=== PATIENT | female | born 1935 | race Caucasian/White ===

== ENCOUNTER 2017-01-27 16:01 | Emergency (ER) | payer MEDICARE ==
[~2017-01-27] VITALS: Ht 152.4 cm; Wt 101.8 kg
[~2017-01-27 16:01] MED LIST: /AMLO25TA PO; /FENO14TA PO; ACET325S2 PO; ADV250INH INH; ADVA250A INH; ALBU17IN INH; ALBU83IN INH; ASPI-101 PO; ASPI81TA7 PO; ASPI81TAEC PO; AVAL300T14 PO; AVAP150T PO; AVAP150T31 PO; AZIT250T PO; AZUL500T PO; CALC500C2 PO; CALC500T21 PO; CALC500T49 PO; CALCCHW19 PO; CIPR-249 PO; CYMB60CA3 PO; FERR220E3 PO; FLAG500T PO; FLAX1000 PO; FLON0.05; FLON0.054; FLUT1SPR2; INDE80CA PO; IRBE150T12 PO; LASI20TA PO; LASI40TA PO; LEVO50TA5 PO; LIPI20TA PO; MAGO400T PO; MULTCAP PO; MULTTAB4 PO; OCEA0.65; OCEA0.654; PERC5TAB12 PO; PERCOCET PO; PRED10TA2 PO; PRIM250T8 PO; PRIM25TA PO; ROBISYP5 PO; SPIR25TA2 PO; SULF500T2 PO; SULFPOW OR; SYNT50TA PO; TYLE325T5 PO; TYLE650T30 PO; [UNRECOGNIZED DRUG - CODE] PO; advair INH; calcium OR; inderal OR
[2017-01-27] MEDS ORDERED: ALDA25TA2 PO (16:25)
[2017-01-27] MEDS ORDERED: INCR1INH INH (16:29)
[2017-01-27] MEDS ORDERED: DULE200A INH (16:29)
[2017-01-27] MEDS ORDERED: VITA200016 PO (16:30)
[2017-01-27 17:46] LABS: BASO % 0.1 % (0.0-1.0); EOS # 0.2 K/mm3 (0.0-0.50); EOS % 3.1 % (0.0-3.0); LARGE UNSTAINED CELL # 0.1 K/mm3 (0.0-0.4); LARGE UNSTAINED CELL % 1.8 % (0.0-4.0); LYMPH # 1.3 K/mm3 (1.5-4.5); MEAN CORPUSCULAR HEMOGLOBIN 34.2 pg (27.0-33.0); MEAN CORPUSCULAR HGB CONC 33.5 g/dl (32.0-36.5); MONO # 0.4 K/mm3 (0.0-0.8); MONO % 4.5 % (0.0-5.0); NEUTROPHILS # 5.7 K/mm3 (1.8-7.7); NEUTROPHILS % 73.5 % (36.0-66.0); PLATELET COUNT, AUTOMATED 324 k/mm3 (150-450); RED CELL DISTRIBUTION WIDTH 13.5 % (11.5-14.5); WHITE BLOOD COUNT 7.8 K/mm3 (4.0-10.0)
[2017-01-27 18:03] LABS: ALBUMIN 3.3 GM/DL (3.2-5.2); ALBUMIN/GLOBULIN RATIO 0.83 (1.00-1.93); ALKALINE PHOSPHATASE 84 U/L (45-117); ALT/SGPT 14 U/L (12-78); ANION GAP 7 MEQ/L (8-16); AST/SGOT 20 U/L (15-37); BILIRUBIN,DIRECT < 0.1 MG/DL (0.0-0.2); BILIRUBIN,TOTAL 0.2 MG/DL (0.2-1.0); BLOOD UREA NITROGEN 21 MG/DL (7-18); CALCIUM LEVEL 8.8 MG/DL (8.8-10.2); CARBON DIOXIDE LEVEL 30 MEQ/L (21-32); CHLORIDE LEVEL 102 MEQ/L (98-107); CREATININE FOR GFR 0.82 MG/DL (0.55-1.02); GLOMERULAR FILTRATION RATE > 60.0 (>32); GLUCOSE, FASTING 113 MG/DL (83-110); POTASSIUM SERUM 4.1 MEQ/L (3.5-5.1); SODIUM LEVEL 139 MEQ/L (136-145); TOTAL PROTEIN 7.3 GM/DL (6.4-8.2)
--- NOTE | 2017-01-27 18:23 | REP ---
Clinical: Right lower extremity pain and swelling . Technique: Mccracken scale and color Doppler evaluation using linear high frequency transducer. Findings: Ultrasound examination of the right lower extremity deep venous structures from the common femoral vein to the popliteal vein demonstrates normal compressibility flow and wave patterns in response to respiration and augmentation. There is no evidence for deep venous thrombosis. Impression: No evidence for deep venous thrombosis. Signed by Davi Smith MD 01/27/2017 06:15 P
--- NOTE | 2017-01-27 19:01 | REP ---
Clinical: Pain. Technique: AP, cross table lateral, bilateral oblique views of the right knee. Findings: Early advanced tricompartmental osteoarthritic degenerative changes include subchondral sclerosis, marginal osteophytes, and joint space narrowing. No acute fracture dislocation. No definite effusion. Impression: Early advanced tricompartmental osteoarthritic degenerative changes. Signed by Davi Smith MD 01/27/2017 06:53 P
--- NOTE | 2017-01-27 19:10 | REP ---
Clinical: Shortness of breath. Findings: The lung gardner demonstrate diffuse chronic interstitial changes along with minimal superimposed scattered bibasilar atelectasis. No focal consolidation, pleural effusion, or pneumothorax. A 6 mm noncalcified nodule is identified in the lingula and appears relatively unchanged when compared to 2014. No further definite significant nodule or mass lesion is appreciated. Mediastinum demonstrates by of cardiomegaly along with atherosclerotic changes to the thoracic aorta and coronary arteries. No pericardial effusion. No significant obvious adenopathy. Musculoskeletal structures demonstrate age-related degenerative changes without focal osseous abnormality. Upper abdomen demonstrates normal bilateral adrenal glands. Impression: 1. Suspected mild bibasilar atelectasis. 2. Chronic changes including cardiomegaly and scattered chronic interstitial disease as well as noncalcified nodule in the lingula which remains relatively stable compared to 2014. Signed by Davi Smith MD 01/27/2017 07:02 P
[2017-01-27 19:38] VITALS: BP 124/65
== END 2017-01-27 20:31 | disposition home or self-care (01) ==
LOC: M ED 16:01
DX: M17.11 Unilateral primary osteoarthritis, right knee (principal); I50.9 Heart failure, unspecified; I10 Essential (primary) hypertension; E78.4 Other hyperlipidemia; I25.10 Atherosclerotic heart disease of native coronary artery without angina pectoris; K58.8 Other irritable bowel syndrome; Z87.891 Personal history of nicotine dependence

== ENCOUNTER → 2017-01-30 | Outpatient (REF) | payer MEDICARE ==
[~2017-01-30] MED LIST changes: +ALDA25TA2 PO; +CETI10TA PO; +DULE200A INH; +FLON1SPR; +FURO40TA2 PO; +IBUPOTC PO; +INCR1INH INH; +METH25TA3 PO; +MONT10TA2 PO; +MUCI600T37 PO; +NORCOTAB PO; +PROP40TA PO; +SENN1TAB2 PO; +VITA200016 PO; +VOLT1GEL15 TD
[2017-01-30 11:57] LABS: MEAN CORPUSCULAR HEMOGLOBIN 33.6 pg (27.0-33.0); MEAN CORPUSCULAR VOLUME 101.8 fl (80.0-96.0); RED CELL DISTRIBUTION WIDTH 13.7 % (11.5-14.5); WHITE BLOOD COUNT 6.4 K/mm3 (4.0-10.0)
[2017-01-30 12:32] LABS: ALBUMIN/GLOBULIN RATIO 0.73 (1.00-1.93); ALKALINE PHOSPHATASE 72 U/L (45-117); ALT/SGPT 13 U/L (12-78); ANION GAP 9 MEQ/L (8-16); AST/SGOT 21 U/L (15-37); BILIRUBIN,TOTAL 0.3 MG/DL (0.2-1.0); BLOOD UREA NITROGEN 22 MG/DL (7-18); CALCIUM LEVEL 8.6 MG/DL (8.8-10.2); CARBON DIOXIDE LEVEL 28 MEQ/L (21-32); CHLORIDE LEVEL 105 MEQ/L (98-107); CREATININE FOR GFR 0.93 MG/DL (0.55-1.02); GLOMERULAR FILTRATION RATE > 60.0 (>32); GLUCOSE, FASTING 102 MG/DL (83-110); MAGNESIUM LEVEL 2.1 MG/DL (1.8-2.4); POTASSIUM SERUM 4.6 MEQ/L (3.5-5.1); SODIUM LEVEL 142 MEQ/L (136-145); TOTAL PROTEIN 7.1 GM/DL (6.4-8.2)
== END ==
LOC: M LABDRAW1 09:33
PROVIDERS: ATTEND Internal Medicine
DX: I10 Essential (primary) hypertension (principal); Z85.038 Personal history of other malignant neoplasm of large intestine; E78.00 Pure hypercholesterolemia, unspecified; E03.9 Hypothyroidism, unspecified

== ENCOUNTER 2017-02-08 16:56 | Inpatient (IN) | payer MEDICARE ==
[~2017-02-08] VITALS: Ht 152.4 cm; Wt 109.3 kg
[~2017-02-08 16:56] MED LIST changes: -CETI10TA PO; -FLON1SPR; -FURO40TA2 PO; -IBUPOTC PO; -METH25TA3 PO; -MONT10TA2 PO; -MUCI600T37 PO; -NORCOTAB PO; -PROP40TA PO; -SENN1TAB2 PO; -VOLT1GEL15 TD
[2017-02-08] MEDS ORDERED: PRIM250T8 PO (17:11)
[2017-02-08] MEDS ORDERED: FLON1SPR (17:11)
[2017-02-08] MEDS ORDERED: MUCI600T37 PO (17:12)
[2017-02-08] MEDS ORDERED: methylPREDNISolone INJ 125 MG/2 ML VIAL (J2930) IV ONE (17:30)
[2017-02-08 17:41] LABS: ABG BASE EXCESS 1.8 (-2.0-2.0); ABG HCO3 26.5 MEQ/L (22.0-26.0); ABG PARTIAL PRESSURE CO2 41.8 mmHg (35.0-45.0); ABG PARTIAL PRESSURE O2 85.5 mmHg (75.0-100.0); ABG STANDARD HCO3 26.1 MEQ/L (22.0-26.0); ABG TOTAL CO2 27.8 MEQ/L (23.0-31.0)
[2017-02-08 17:51] LABS: BASO # 0.1 K/mm3 (0.0-0.2); BASO % 0.7 % (0.0-1.0); EOS # 1.8 K/mm3 (0.0-0.50); EOS % 22.4 % (0.0-3.0); LARGE UNSTAINED CELL # 0.2 K/mm3 (0.0-0.4); LARGE UNSTAINED CELL % 2.7 % (0.0-4.0); LYMPH # 0.9 K/mm3 (1.5-4.5); LYMPH % 7.9 % (24.0-44.0); MEAN CORPUSCULAR HEMOGLOBIN 33.1 pg (27.0-33.0); MEAN CORPUSCULAR VOLUME 103.3 fl (80.0-96.0); MONO # 0.5 K/mm3 (0.0-0.8); MONO % 5.7 % (0.0-5.0); NEUTROPHILS % 60.6 % (36.0-66.0); PLATELET COUNT, AUTOMATED 277 k/mm3 (150-450); RED CELL DISTRIBUTION WIDTH 14.3 % (11.5-14.5); WHITE BLOOD COUNT 8.2 K/mm3 (4.0-10.0)
--- NOTE | 2017-02-08 18:19 | REP ---
Clinical: Dyspnea and cough. Comparison: 08/18/2015. Findings: Mediastinum and cardiac silhouette are stable. Cardiomegaly is again appreciated. Lung gardner demonstrate diffuse chronic interstitial changes and superimposed interstitial edema as well as subtle basilar atelectasis cannot be excluded. Impression: Cardiomegaly and chronic changes. Cannot exclude interstitial edema and basilar atelectasis. Signed by Davi Smith MD 02/08/2017 06:10 P
[2017-02-08 19:29] LABS: ALBUMIN 3.1 GM/DL (3.2-5.2); ALBUMIN/GLOBULIN RATIO 0.63 (1.00-1.93); ALKALINE PHOSPHATASE 90 U/L (45-117); ALT/SGPT 12 U/L (12-78); ANION GAP 5 MEQ/L (8-16); AST/SGOT 19 U/L (15-37); BILIRUBIN,DIRECT < 0.1 MG/DL (0.0-0.2); BILIRUBIN,TOTAL 0.3 MG/DL (0.2-1.0); BLOOD UREA NITROGEN 23 MG/DL (7-18); CALCIUM LEVEL 8.7 MG/DL (8.8-10.2); CARBON DIOXIDE LEVEL 32 MEQ/L (21-32); CHLORIDE LEVEL 101 MEQ/L (98-107); GLOMERULAR FILTRATION RATE 56.5 (>32); GLUCOSE, FASTING 108 MG/DL (83-110); POTASSIUM SERUM 4.1 MEQ/L (3.5-5.1); SODIUM LEVEL 138 MEQ/L (136-145)
[2017-02-08] MEDS ORDERED: ALBUTEROL SULFATE 2.5 MG/0.5 ML INH NEB SOLN NEB ONE (19:45)
[2017-02-08] MEDS ORDERED: IBUPROFEN 800 MG TAB PO ONE (20:00)
[2017-02-08] MEDS ORDERED: PROPRANOLOL 20 MG TAB PO ONE (20:00)
[2017-02-08] MEDS ORDERED: PRIMIDONE 250 MG TAB PO ONE (20:00)
[2017-02-08] MEDS ORDERED: PROP40TA PO (21:58)
[2017-02-08] MEDS ORDERED: IBUPOTC PO (21:58)
[2017-02-08] MEDS ORDERED: FURO40TA2 PO (21:58)
[2017-02-08] MEDS ORDERED: IBUPROFEN 600 MG TAB PO ONE (22:45)
[2017-02-09 02:00] VITALS: BP 175/77
[2017-02-09] MEDS: ALBUTEROL SULFATE 2.5 MG/0.5 ML INH NEB SOLN INH SCH ×7 (02:14→23:10)
--- NOTE | 2017-02-09 02:24 | HPEPDOC ---
General Date of Admission 02/08/17 Primary Care Physician: Martin Pearson Attending Physician: KENNY OWUSU DO Chief Complaint The patient is a 81-year-old female admitted with a reason for visit of SOB. History of Present Illness Patient is a 81 year old female with past medical history significant for asthma , HTN, essential tremor, hypothyroidism, glaucoma, rheumatoid arthritis, and GALO presents to the ER with shortness of breath. Patient states for the past three days her SOB has become worse. Normally has SOB prior to this. Is not short of breath at rest but has been for the past 3 days. Nothing happened three days ago. No recent illness or sick contacts. Patient states that she has these decompensations every once in a while. Normally she is comes in for some medication is able to go home. Patient states her normal status that she is able to walk approximately 20 feet before her back starts hurting. She also becomes short of breath. She describes having a cough chronically. However it has "tightened up". Currently she does not have a productive cough but she did before. She reports that this started after seeing investment recovery technician approximate 2 months ago she was put on Mucinex. Was told that it's "something stronger ". Her investment recovery technician is Dr. Lee. After this she started having this titer cough. Patient reports last few days she's had to use her pro-air inhaler more than she ever had. Previously she had rarely ever used it. The last 2 days she uses a total 12 times, last afternoon 6 times and 6 times this morning. She only uses her nebulizer twice a day. She was given a call to see if she can use it more but did not. Mr. having a slight headache these past few days. Usually does not have a headache. Describes it as all comes and goes. It is a mild pain. Bitemporal. Goes away on its own. Nothing makes it better and nothing makes it worse. Patient has reported some constipation. Last bowel movement was this morning. When she has constipation will take some prunes or apple cider and this helps. Denies any blood or black tarry stools. In the emergency room patient received a chest x-ray revealed cardiomegaly, interstitial edema and atelectasis. Did not reveal any infiltrates. Patient was given medication for her essential tremor which includes propranolol and mysoline. Patient was also given Solu-Medrol IV 125 mg and albuterol 1 time nebulizer. This helped patient a lot. However patient is still hypoxic without her oxygen. Patient normally only wears 2 L of oxygen at night. However past few days patient has had to wear her out the day. She takes it off when she ambulates but was wearing it when she sits around. She also had a arterial blood gas revealed pH of 7.420 with a CO2 of 41.8. Patient's BMP was 168. Patient has had a previous echocardiogram in [place]. Was done in the hospital that used to been on his [facility] in [place], [place]. Was told that it was normal. Home Medications Scheduled (Dulera 200-5 Mcg/Act) 1 Aer Aer, 1 AER INH BID, (Reported) (Incruse Ellipta) 62.5 Mcg/Inh Inh, 62.5 MCG INH DAILY, (Reported) (Flonase Allergy Relief) 50 Mcg/Act Spr, 2 SPRAYS NA BID, (Reported) Albuterol Sulfate (Albuterol Sulfate) 2.5 Mg/3 Ml Nebu, 2.5 MG INH BID, ( Reported) Aspirin (Aspirin EC) 81 Mg Tabec, 81 MG PO QHS, (Reported) Atorvastatin Calcium (Lipitor) 20 Mg Tab, 20 MG PO QPM, (Reported) Calcium (Calcium) 500 Mg Tab, 1,000 MG PO BID, (Reported) Furosemide (Furosemide) 40 Mg Tab, 60 MG PO DAILY, (Reported) Guaifenesin (Mucinex) 600 Mg Tab, 600 MG PO BID, (Reported) Ibuprofen (Ibuprofen) 200 Mg Tab, 800 MG PO BID, (Reported) Levothyroxine Sodium (Synthroid) 50 Mcg Tab, 100 MCG PO DAILY, (Reported) Linseed Oil (Flaxseed Oil) 1,000 Mg Cap, 1,000 MG PO BID, (Reported) Primidone (Primidone) 250 Mg Tab, 250 MG PO BID, (Reported) Propranolol HCl (Propranolol HCl) 40 Mg Tab, 40 MG PO BID, (Reported) Spironolactone (Aldactone) 25 Mg Tab, 25 MG PO DAILY, (Reported) Sulfasalazine (Sulfasalazine) 500 Mg Tab, 1,000 MG PO BID, (Reported) Vitamin D (Vitamin D) 2,000 Unit Cap, 2,000 UNIT PO QPM, (Reported) Allergies Coded Allergies: Cephalosporins (Verified Allergy, Intermediate, SEVERE HIVES, 03/12/14) Iodine (Verified Allergy, Intermediate, SEVERE HIVES, 03/12/14) Tetracycline (Verified Allergy, Intermediate, EXTREME HIVES RESULTING IN HOSPITALIZATION, 03/12/14) Morphine (Verified Adverse Reaction, Intermediate, HALLUCINATIONS, ) Past Medical History Medical History Asthma Resting tremor HTN GALO CHF CAD, status post 2 stents Rheumatoid arthritis Dyslipidemia Glaucoma Surgical History Colostomy reversal and colostomy construction Cardiac stent, x2 Hysterectomy Tonsillectomy Review of Symptoms Other systems Gen.: Denies any fevers or chills. Patient uses a walker to get around at home. Head: Positive for headache. Denies any trauma. Eyes: Positive for some blurriness, patient wears glasses. Blurriness has been going on for a few months. Patient is a new glasses. Nose: Denies any rhinorrhea. Ears: Denies any hearing changes. Throat: Denies any painful or difficulty swallowing. Cardiovascular: Denies any chest pain or palpitations. Respiratory: Positive per HPI. Abdomen: Denies any abdominal pain, nausea and vomiting and diarrhea. : Denies any dysuria or frequency. Extremity: Denies any muscle weakness. Positive for swelling in the lower extremity. MSK: Admits to some chronic low back pain. Neuro: Denies any numbness. Psych: Negative for depression and anxiety. Physical Examination General Exam: Positive: Alert, Cooperative, No Acute Distress, Other (patient is on 2 L of oxygen nasal cannula.) Eye Exam: Positive: Conjunctiva & lids normal, EOMI, Negative: Sclera icteric, Ptosis ENT Exam: Positive: Atraumatic Neck Exam: Positive: Supple, Negative: JVD, thyromegaly Chest Exam: Positive: Other (Crackles lower lobes bilaterally. ), Negative: Wheezing Heart Exam: Positive: Rate Normal, Normal S1, Normal S2, Negative: Tachycardic, Murmurs, Rubs Abdomen Exam: Positive: Normal bowel sounds, Soft, Negative: Tenderness, Hepatospenomegaly Extremity Exam: Positive: Edema (2+ edema to knees bilaterally), Negative: Clubbing, Cyanosis Skin Exam: Positive: Nl turgor and temperature, Negative: Rash, Breakdown, Lesion Neuro Exam: Positive: Normal Gait, Normal Speech, Sensation Intact, Other ( muscle strength 5/5 upper extremity, lower extremity 3/5. ), Negative: Normal Tone Psych Exam: Positive: Mental status NL, Mood NL, Oriented x 3 (Orientated to person, place and time. ), Negative: Anxiety Vital Signs Vital Signs Date Time Temp Pulse Resp B/P (MAP) Pulse Ox O2 Delivery O2 Flow Rate FiO2 02/08/17 21:15 170/72 (104) 02/08/17 20:56 78 02/08/17 20:41 91 02/08/17 17:42 Nasal Cannula 2.0 02/08/17 17:33 96.2 02/08/17 17:11 36 Laboratory Data Labs 24H Laboratory Tests 2 02/08/17 17:26: Blood Gas Bicarbonate Standard 26.1H, Arterial Blood pH 7.420, Arterial Blood Partial Pressure CO2 41.8, Arterial Blood Partial Pressure O2 85.5, Arterial Blood Total CO2 27.8, Arterial Blood HCO3 26.5H, Arterial Blood Base Excess 1.8 , Arterial Blood Oxygen Saturation 95.2 02/08/17 17:27: White Blood Count 8.2, Red Blood Count 3.21L, Hemoglobin 10.6L, Hematocrit 33.1L , Mean Corpuscular Volume 103.3H, Mean Corpuscular Hemoglobin 33.1H, Mean Corpuscular Hemoglobin Concent 32.0, Red Cell Distribution Width 14.3, Platelet Count 277, Neutrophils (%) (Auto) 60.6, Lymphocytes (%) (Auto) 7.9L, Monocytes ( %) (Auto) 5.7H, Eosinophils (%) (Auto) 22.4H, Basophils (%) (Auto) 0.7, Neutrophils # (Auto) 5.0, Lymphocytes # (Auto) 0.9L, Monocytes # (Auto) 0.5, Eosinophils # (Auto) 1.8H, Basophils # (Auto) 0.1, Large Unclassified Cells % 2.7, Large Unclassified Cells # 0.2, Anion Gap 5L, Glomerular Filtration Rate 56.5, Lactic Acid Level 1.0, Calcium Level 8.7L, Aspartate Amino Transf (AST/ SGOT) 19, Alanine Aminotransferase (ALT/SGPT) 12, Alkaline Phosphatase 90, Total Bilirubin 0.3, Direct Bilirubin < 0.1, B-Type Natriuretic Peptide 168H, Total Protein 8.0, Albumin 3.1L, Albumin/Globulin Ratio 0.63L CBC/BMP Laboratory Tests 02/08/17 17:27 Red Blood Count 3.21 L, Mean Corpuscular Volume 103.3 H, Mean Corpuscular Hemoglobin 33.1 H, Mean Corpuscular Hemoglobin Concent 32.0, Red Cell Distribution Width 14.3, Neutrophils (%) (Auto) 60.6, Lymphocytes (%) (Auto) 7.9 L, Monocytes (%) (Auto) 5.7 H, Eosinophils (%) (Auto) 22.4 H, Basophils (%) (Auto) 0.7, Neutrophils # (Auto) 5.0, Lymphocytes # (Auto) 0.9 L, Monocytes # ( Auto) 0.5, Eosinophils # (Auto) 1.8 H, Basophils # (Auto) 0.1 Assessment/Plan Acute Respiratory Distress Mostly secondary to asthma exacerbation. Patient states that she does feel better with nebulizers and inhalers. Is currently on 2 L of oxygen nasal cannula which she uses at home at night. No wheezing on exam. Patient states that no one ever hears the wheezing. Thyroxine patient desaturated into the 80s% pulse ox. Continuing patient on albuterol nebulizer every 4 hours. Starting patient on methylprednisolone IV 40 mg every 12. Patient received 1 dose 125 mg IV in the ER. Ordering sputum culture and respiratory panel. Chest x-ray revealed no infiltrate. Asthma Patient has seen investment recovery technician Dr. Lee. Patient is currently on Dulara and Incruse daily. Patient also has rescue inhaler and nebulizer treatments. Patient uses nebulizer treatments twice a day. CHF history Patient is a history of CHF. She had an echo last in [place] and was told was normal. Patient does have a reduction edema 2+ to the knees. States that that is chronic. She also does have some crackles and right lower lobes. Patient takes Lasix 60 mg daily, Aldactone 25 mg daily. BNP on labs today is 168. Monitor patient's I's and O's. Resting tremor Patient has a resting tremor. She takes propranolol 80 mg twice a day and primidone to 250 mg twice a day. Patient states that these medications do help her. Patient states she used to take propanolol 80 mg twice a day but has been decreased to current dose. Holding patient's Propranolol due to asthma exacerbation. HTN Patient takes Lasix 60 mg daily, Aldactone 25 mg daily. Monitor blood pressure. CAD Patient has a history of stent 2. Currently takes aspirin 81 mg daily. Continue home dose. Rheumatoid arthritis Patient is currently on sulfasalazine 500 mg 2 tabs twice a day. Continue home dose. GALO Patient currently does not use CPAP machine. Noncompliant. Patient does wear 2 L of oxygen at night. Hyperlipidemia Patient takes Lipitor 20 mg daily. Continue home dose. Hypothyroidism Patient takes Synthroid 100 mcg daily. Continue home dose. Plan / VTE VTE Prophylaxis Ordered?: Yes (Lovenox 40 mg subcutaneous daily. Compression stockings.) Plan Plan For patient to be admitted for observation to Med/Surg. Patient will be followed by Dr. Siegel on 02/09/17 at 7 AM. Be started on 2gm sodium diet. Patient uses a walker for ambulation. GME ATTESTATION GME ATTESTATION My preceptor for this patient encounter was physically present in the building during the encounter and was fully available. As needed, all aspects of the patient interview, examination, medical decision making process, and medical care plan development were reviewed and approved by the preceptor. Preceptor is aware and concurs with the plan as stated in the body of this note and will attest to such by his/her cosignature. CASSANDRA HERNÁNDEZ DO Feb 08, 2017 23:14
[2017-02-09] MEDS: methylPREDNISolone INJ 40 MG/1 ML VIAL (J2920) IV SCH ×2 (05:33→18:23)
[2017-02-09] MEDS: LEVOTHYROXINE 100MCG TABLET (0.1MG) PO SCH (05:35)
[2017-02-09] MEDS ORDERED: ALBUTEROL SULFATE 2.5 MG/0.5 ML INH NEB SOLN NEB ONE (05:45)
[2017-02-09] MEDS ORDERED: ALBUTEROL SULFATE 2.5 MG/0.5 ML INH NEB SOLN NEB PRN (05:45)
[2017-02-09] MEDS ORDERED: ADVAIR HFA 115/21MCG INHALER INH ONE (05:47)
[2017-02-09 06:00] VITALS: BP 164/73
[2017-02-09 07:23] LABS: BASO # 0.1 K/mm3 (0.0-0.2); BASO % 0.8 % (0.0-1.0); EOS # 1.4 K/mm3 (0.0-0.50); EOS % 18.4 % (0.0-3.0); LARGE UNSTAINED CELL # 0.4 K/mm3 (0.0-0.4); LARGE UNSTAINED CELL % 5.6 % (0.0-4.0); LYMPH # 0.7 K/mm3 (1.5-4.5); LYMPH % 9.3 % (24.0-44.0); MEAN CORPUSCULAR HEMOGLOBIN 34.5 pg (27.0-33.0); MEAN CORPUSCULAR HGB CONC 32.8 g/dl (32.0-36.5); MEAN CORPUSCULAR VOLUME 105.2 fl (80.0-96.0); MONO # 0.5 K/mm3 (0.0-0.8); MONO % 6.9 % (0.0-5.0); NEUTROPHILS # 4.6 K/mm3 (1.8-7.7); PLATELET COUNT, AUTOMATED 271 k/mm3 (150-450); RED CELL DISTRIBUTION WIDTH 14.1 % (11.5-14.5); WHITE BLOOD COUNT 7.8 K/mm3 (4.0-10.0)
--- NOTE | 2017-02-09 07:52 | ECGEPIP ---
Stationary ECG Study [facility] - ED Test Date: 2017-02-08 Pat Name: STEFANO ROLDAN Department: Room: - Gender: F Joint Filler: JT : 1935 Requested By: RHONDA Ferris Order Number: [id number] Reading MD: Vee Moe Measurements Intervals [place] Rate: 70 P: -8 MT: 112 QRS: -10 QRSD: 89 T: 0 QT: 392 QTc: 425 Interpretive Statements SINUS RHYTHM WITH SHORT MT INTERVAL POSSIBLE INFERIOR MYOCARDIAL INFARCTION, PROBABLY OLD WITH POSTERIOR EXTENSION BASELINE ARTIFACT LIMITS INTERPRETATION Electronically Signed On 02-09-2017 7:51:48 EDT by Vee Moe
[2017-02-09] MEDS ORDERED: PROPRANOLOL 20 MG TAB PO SCH (09:00)
[2017-02-09] MEDS ORDERED: SALMETEROL DISKUS 50MCG INHALER (SEREVENT) INH SCH (09:00)
[2017-02-09] MEDS: OYSTER SHELL CALCIUM 500 MG TAB PO SCH ×2 (09:00→20:38)
[2017-02-09] MEDS ORDERED: ADVAIR HFA 115/21MCG INHALER INH SCH ×2 (09:00→21:00)
[2017-02-09] MEDS: guaiFENesin ER 600 MG TAB PO SCH ×3 (09:00→20:37)
[2017-02-09 09:12] LABS: CALCIUM LEVEL 8.6 MG/DL (8.8-10.2); CREATININE FOR GFR 0.97 MG/DL (0.55-1.02); GLOMERULAR FILTRATION RATE 58.5 (>32); POTASSIUM SERUM 4.1 MEQ/L (3.5-5.1)
[2017-02-09] MEDS: FLUTICASONE PROP 0.05% NASAL SPRAY 16 GM (FLONASE) SCH ×2 (10:24→20:41)
[2017-02-09] MEDS: sulfaSALAzine 500 MG TABEC PO SCH ×2 (10:25→20:37)
[2017-02-09] MEDS: ENOXAPARIN 40 MG/0.4 ML SYRINGE (J1650) SC SCH (10:25)
[2017-02-09] MEDS: PRIMIDONE 250 MG TAB PO SCH ×2 (10:25→20:38)
[2017-02-09] MEDS: SPIRONOLACTONE 25 MG TAB PO SCH (10:25)
[2017-02-09] MEDS: CETIRIZINE (ZyrTEC) 10 MG TAB PO SCH (10:25)
[2017-02-09] MEDS: FUROSEMIDE 20 MG TAB PO SCH (10:26)
--- NOTE | 2017-02-09 10:26 | REP ---
CT of the chest without IV contrast: Comparisons are the chest CT dated 01/27/2017, CT of the abdomen including the lower lung gardner dated 03/16/2014, CT of the abdomen 02/23/[address] of the abdomen on 02/15/2012. There is complete complete collapse of the lateral segment right middle lobe as a change from all prior studies including the most recent prior study of 01/27/2017. This may represent an acute endobronchial obstruction. There is a noncalcified nodule in the anterior segment right lower lobe on image 53. This measured 7 mm of 01/27/2017 and 6 mm and 03/16/2014 and 6 mm 03/05/2012. There is a 9 mm noncalcified lung nodule inferiorly in the lingula. This measured 9 mm on 01/27/2017, 8 ml on 02/23/2014. Was not included in the scanning volumes on 03/16/2014 over 03/05/2012. There is mild dependent atelectasis in the lung bases. The remainder of the lung gardner are clear. There are multiple mediastinal nodes. These have increased in number from 01/27/2017. A few are borderline enlarged. There is no axillary lymph node enlargement. In the absence of IV contrast the study is insensitive for hilar lymph node enlargement. The unenhanced thoracic aorta is unremarkable. Cardiac size is normal. There is a calculus in the gallbladder with rim calcification. The visualized hepatic parenchyma, pancreas and spleen are unremarkable. There is no adrenal mass. Impression: Complete collapse of the lateral segment of the right middle lobe as a change from 01/27/1927, possibly indicating endobronchial obstruction. Lung nodules as described. Increasing number of mediastinal nodes, some of which are borderline enlarged. Gallbladder calculus. Signed by Evgeny Russ MD 02/09/2017 10:18 A
[2017-02-09] MEDS: PROPRANOLOL 20 MG TAB PO SCH ×2 (12:53→21:00)
[2017-02-09] MEDS: IBUPROFEN 800 MG TAB PO PRN (12:53)
[2017-02-09 14:00] VITALS: BP 156/75
--- NOTE | 2017-02-09 14:03 | IPN ---
DATE: 02/09/2017 Ms. Ball is frustrated with her care last night. She has made some specific care requests that were not always complied with to her level of satisfaction. The good news is that this morning she is perhaps breathing a little easier. She has no chest pain, although she is still somewhat short of breath. She is not producing sputum but believes she could. PHYSICAL EXAMINATION: VITAL SIGNS: Temperature 96.8, pulse 74, respiratory rate 16, blood pressure 164/73, 96% on 2 liters. Input and output notable for a net fluid balance. Body Mass Index (BMI) is 47.8. She is awake, appropriately interactive, somewhat anxious and tearful. Mucous membranes are moist. Neck is thick. Breathing is symmetrical. I:E ratio is 1:5. Coarse upper airway sounds throughout. Occasional polyphonic wheeze. Heart is distant sounding. Normal S1, S2. ABDOMEN: Soft, doughy, nontender. EXTREMITIES: There is lower extremity edema. White cell count is 7.8, hemoglobin 10.5, platelets of 271. BUN 20, creatinine 0.97. Chest CT done this morning shows complete collapse in the lateral segment of the right middle lobe that has changed from previous tests. ASSESSMENT: This is a 89-year-old who presented with respiratory distress, eosinophilia. PLAN: 1. Respiratory. The patient has a history of asthma and follows with Dr. Lee. I have consulted Dr. Degroot for assistance in her care. Based on the findings of her CT scan, we will see what further workup or treatment is warranted. Continue with steroids and nebulizers at this point. 2. The patient has a history of congestive heart failure (CHF) and may benefit from diuresis. 3. The patient has resting tremor. She takes propranolol twice a day, which she is unwilling to give up at this point. Based on her improvement in her respiratory status, I have reordered it reluctantly. 4. The patient has hypertension. 5. The patient has coronary artery disease. 6. The patient has rheumatoid arthritis, which could complicate her lung findings and is another good reason for consultation. 7. The patient has obstructive sleep apnea and noncompliant with CPAP. Does wear oxygen at night. 8. The patient has hypothyroidism. 9. Morbid obesity MTDD
--- NOTE | 2017-02-09 15:40 | REP ---
Clinical: Lower extremity swelling . Technique: Mccracken scale and color Doppler evaluation using linear high frequency transducer. Findings: Ultrasound examination of the right and left lower extremity deep venous structures from the common femoral vein to the popliteal vein demonstrates normal compressibility flow and wave patterns in response to respiration and augmentation. There is no evidence for deep venous thrombosis. Diffuse subcutaneous edema noted. Impression: No evidence for deep venous thrombosis bilateral lower extremities. Subcutaneous edema. Signed by Davi Smith MD 02/09/2017 03:32 P
--- NOTE | 2017-02-09 19:00 | CR ---
DATE OF CONSULTATION: 02/09/2017 REASON FOR CONSULTATION: Shortness of breath, eosinophilia, concern for uncontrolled asthma. CONSULT IN PROVIDER: Dr. Phillip Siegel. HISTORY OF PRESENT ILLNESS: Ms. Ball is an 81-year-old female who is known to Dr. Lee's service for allergic asthma. She presented yesterday to the hospital, her second visit to the hospital for shortness of breath. She had just been recently discharged from a hospital in [place]. She states that during that hospitalization she underwent bronchoscopy and was well for about a week and then had her symptoms return. She has been short of breath, tight, wheezing. She states after starting Mucinex she actually got worse. She has significant lower extremity edema, and she states she simply cannot live this way. She cannot recall any inciting events. She does feel as if she has increased nasal congestion. No increased sinus congestion. No fever, chills. Her cough is mostly nonproductive. No hemoptysis. She denies any chest pain. No significant orthopnea. She does have chest tightness. She states she has seen two cardiologists and both cardiologists told her her heart was fine. However, she is on Aldactone. She also states that she is hypothyroid; however, states her primary care physician has taken close watch of this. She states she was actually able to cough up a little sputum this morning, was able to give a sputum sample. Her biggest complaint is that of shortness of breath with minimal movement. PAST MEDICAL HISTORY: 1. Allergic asthma. 2. Hypertension. 3. Essential tremor. 4. Hypothyroidism. 5. Glaucoma. 6. History of rheumatoid arthritis. 7. Obstructive sleep apnea. 8. Suspected diastolic dysfunction. 9. History of coronary artery disease status post two stents. 10. Dyslipidemia. 11. Colostomy with reversal. 12. Hysterectomy. 13. Tonsillectomy. REVIEW OF SYSTEMS: General: The patient denies any fever, chills. She has had no weight loss and her appetite is good. HEENT: She has had a headache but at the beginning of her hospitalization; none now. Complains of nasal congestion. No sinus congestion. No change in vision. No difficulty swallowing. Cardiovascular: No chest pain. No orthopnea. No symptoms of paroxysmal nocturnal dyspnea (PND) but does have lower extremity edema. No symptoms of claudication. Pulmonary: No pleurisy. No history of tuberculosis, tuberculosis exposures. Cannot recall any acute inhalational exposures. Abdomen: No nausea, vomiting, diarrhea, blood in stool. No change in bowel habits. Genitourinary (): No burning or pain with urination. No increased urination. Extremities: She denies weakness, but walks with a walker. Neurologic: Has essential tremor. States she has tried multiple medications other than propranolol that did not work as well as propranolol, and she does not want to stop this medication. No unilateral weakness. No history of seizure activity. No history of head trauma. Sleep: Has obstructive sleep apnea, was slightly sedated when I walked in her room, has difficulty staying awake without the use of her C-PAP. Hematologic: No easy bleeding, easy bruising. She has not required blood transfusion. Psychiatric: No anxiety, depression. CURRENT MEDICATIONS: Ecotrin, Lipitor, Lasix, Mucinex Synthroid, primidone, Aldactone, Proventil, sulfasalazine, Solu-Medrol, Os-David, vitamin D, Flonase, Lovenox, Zyrtec, Prevnar and propranolol. FAMILY HISTORY: She denies any family history of lung disease. She states her son has allergies. SOCIAL HISTORY: She quit smoking 25 years ago, used to smoke a pack and half a day. Started at age 14. She has no pets at home. She lives alone in [place]. She is a retired nurse. PHYSICAL EXAMINATION: VITAL SIGNS: Temperature is 96.8, pulse is 94, respiratory rate of 16, blood pressure is 164/73. Oxygen saturation is 96% on two liters. GENERAL: The patient is initially sleeping in bed, arouses with conversation. HEENT: Sclerae clear and anicteric. Pupils equal round react to light. Mucous membranes are moist without lesions. Tongue is midline. Good dentition. Oropharynx without erythema or exudate. Mallampati II. NECK: Supple. No tracheal deviation. I do not auscultate any stridor. There are no carotid bruits. Jugular venous pulse (JVP) is difficult to assess due to body habitus. LYMPHATIC: No cervical, supraclavicular or axillary adenopathy. CARDIAC: Distant S1, S2 without audible murmur, rub or gallop. Point of maximum impulse (PMI) is difficult to palpate. She has significant pitting edema up to her midthigh. PULMONARY: Decreased breath sounds throughout, prolonged expiratory phase, very tight with poor air entry and there is expiratory wheeze posteriorly, more prominent at the left base. ABDOMEN: Obese, soft, nontender, nondistended. No hepatosplenomegaly. No masses or hernia. EXTREMITIES: Significant pitting edema up to level of her midthigh. No cyanosis or clubbing. MUSCULOSKELETAL: Fair muscle tone for stated age. No evidence of unilateral weakness. No joint effusions. LABORATORY DATA: Laboratory evaluation shows a white blood cell count of 8.2 with 22% neutrophilia, hemoglobin of 10.6, hematocrit of 33.1, with a platelet count of 277. Arterial blood gas shows a pH of 7.42, pCO2 of 41.8, pAO2 of 86. Sodium is 141, potassium 4.1, chloride 104, bicarb of 28, BUN of 20, creatinine 0.97 and glucose of 84. BNP is elevated at 168. Albumin is 3.1. IMAGING: Chest CT was reviewed from 02/06/2017 and 02/09/2017. 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 There is also bronchiectasis. There is evidence of some emphysema throughout the lungs. There is a round pulmonary nodule which has been present since 2014, but more prominent. It does have a benign appearance. There is no significant infiltrate otherwise. IMPRESSION: 1. Dyspnea with history of asthma. There are multiple potential causes of her dyspnea. I believe she may be having exacerbation; therefore, Solu-Medrol is very reasonable. She is on propranolol. I would discontinue this medication and find an alternative therapy for her essential tremor. Often patients that are this eosinophilic with asthma do not do well with nonsteroidals or aspirin. Would look for alternative therapies for her sulfasalazine, Ecotrin and Advil. I will rule out the possibility of allergic bronchopulmonary aspergillosis (ABPA) given her evidence of bronchiectasis on CT exam of the lungs. 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 Apparently had a bronchoscopy in [place] and will obtain those records. I did offer her bronchoscopy if her symptoms do not get better. At this point in time she states she does not want this as she believes it will not help her. I have ordered Mucomyst to help with breakdown of secretions for better mucociliary clearance. I ordered chest physical therapy (PT). Efforts towards mucociliary clearance will be important. 2. Pulmonary nodule, likely benign, will require radiologic surveillance. 3. Lower extremity edema likely from diastolic dysfunction. Agree with efforts towards diuresis. If she proves to be sulfa sensitive, ethacrynic acid may be used instead of Lasix. Thank you for this consultation on this difficult clinical picture. If you have any further questions please feel free to call. EBONI
[2017-02-09] MEDS: ACETYLCYSTEINE 20% 4 ML VIAL (200MG/ML) INH SCH (19:43)
[2017-02-09] MEDS ORDERED: FUROSEMIDE 40 MG/4 ML VIAL (J1940) IV ONE (20:00)
[2017-02-09] MEDS: ASPIRIN 81 MG ENTERIC TAB PO SCH (20:36)
[2017-02-09] MEDS: ATORVASTATIN 20 MG TAB PO SCH (20:36)
[2017-02-09] MEDS: VITAMIN D 1,000 INTERNATIONAL UNITS TABLET PO SCH (20:38)
[2017-02-09] MEDS: DULERA INH SCH (20:38)
[2017-02-09 22:00] VITALS: BP 131/71
[2017-02-10] MEDS: ALBUTEROL SULFATE 2.5 MG/0.5 ML INH NEB SOLN INH SCH ×6 (04:00→23:35)
[2017-02-10] MEDS: methylPREDNISolone INJ 40 MG/1 ML VIAL (J2920) IV SCH ×2 (05:50→18:42)
[2017-02-10] MEDS: LEVOTHYROXINE 100MCG TABLET (0.1MG) PO SCH (05:50)
[2017-02-10] MEDS: IBUPROFEN 800 MG TAB PO PRN ×2 (05:59→19:47)
[2017-02-10 06:00] VITALS: BP 125/68
[2017-02-10 07:22] LABS: CREATININE FOR GFR 0.97 MG/DL (0.55-1.02); GLOMERULAR FILTRATION RATE 58.5 (>32); MAGNESIUM LEVEL 1.8 MG/DL (1.8-2.4); POTASSIUM SERUM 3.7 MEQ/L (3.5-5.1)
[2017-02-10 07:27] LABS: BASO # 0.1 K/mm3 (0.0-0.2); BASO % 0.8 % (0.0-1.0); EOS # 2.7 K/mm3 (0.0-0.50); LARGE UNSTAINED CELL # 0.5 K/mm3 (0.0-0.4); LARGE UNSTAINED CELL % 4.7 % (0.0-4.0); LYMPH # 1.6 K/mm3 (1.5-4.5); LYMPH % 10.4 % (24.0-44.0); MEAN CORPUSCULAR HEMOGLOBIN 32.9 pg (27.0-33.0); MEAN CORPUSCULAR HGB CONC 31.5 g/dl (32.0-36.5); MEAN CORPUSCULAR VOLUME 104.2 fl (80.0-96.0); MONO # 0.6 K/mm3 (0.0-0.8); MONO % 5.5 % (0.0-5.0); NEUTROPHILS # 5.8 K/mm3 (1.8-7.7); NEUTROPHILS % 53.7 % (36.0-66.0); PLATELET COUNT, AUTOMATED 288 k/mm3 (150-450); RED CELL DISTRIBUTION WIDTH 14.4 % (11.5-14.5); WHITE BLOOD COUNT 10.8 K/mm3 (4.0-10.0)
[2017-02-10] MEDS: ACETYLCYSTEINE 20% 4 ML VIAL (200MG/ML) INH SCH ×2 (07:50→19:40)
[2017-02-10] MEDS: DULERA INH SCH ×2 (07:50→19:39)
[2017-02-10] MEDS ORDERED: PREVNAR 13 VACCINE SYRINGE (CPT CODE:90670) IM ONE (09:00)
[2017-02-10] MEDS ORDERED: INFLUENZA VIRUS VACCINE HIGH DOSE 0.5 ML SYRINGE (90662) IM ONE (09:00)
[2017-02-10] MEDS: ENOXAPARIN 40 MG/0.4 ML SYRINGE (J1650) SC SCH (10:06)
[2017-02-10] MEDS: PROPRANOLOL 20 MG TAB PO SCH ×2 (10:06→19:47)
[2017-02-10] MEDS: FUROSEMIDE 20 MG TAB PO SCH (10:06)
[2017-02-10] MEDS: PRIMIDONE 250 MG TAB PO SCH ×2 (10:07→19:46)
[2017-02-10] MEDS: sulfaSALAzine 500 MG TABEC PO SCH ×2 (10:07→19:46)
[2017-02-10] MEDS: CETIRIZINE (ZyrTEC) 10 MG TAB PO SCH (10:07)
[2017-02-10] MEDS: guaiFENesin ER 600 MG TAB PO SCH ×2 (10:08→19:48)
[2017-02-10] MEDS: SPIRONOLACTONE 25 MG TAB PO SCH (10:08)
[2017-02-10] MEDS: OYSTER SHELL CALCIUM 500 MG TAB PO SCH ×2 (10:08→19:46)
[2017-02-10] MEDS: FLUTICASONE PROP 0.05% NASAL SPRAY 16 GM (FLONASE) SCH ×2 (10:08→19:48)
--- NOTE | 2017-02-10 13:06 | IPN ---
DATE OF SERVICE: 02/10/2017 ATTENDING PHYSICIAN: Jerome Degroot DO HISTORY: The patient was seen and examined at bedside this morning. She looks comfortable, in no acute distress. The patient states that she is feeling a little bit better. She is having a productive cough since starting the Mucomyst. The patient states that she has filled about 3 napkins. VITAL SIGNS: Temperature 97.3, pulse of 83, respiratory rate of 18, blood pressure of 125/68 (87), pulse oximetry of 96% with a nasal cannula set at 2 liters. PHYSICAL EXAMINATION: General: The patient looks in no acute distress. Sitting comfortable up in her bed with the nasal cannula. Heent: Sclera clear, mucous membranes moist without lesions, Tongue midline. Heart: Regular rhythm. No rubs. No murmurs. No gallops. No elevated JVP Lungs: Expiratory wheezes can be heard on the right upper lobe and clear to auscultate of the left lobe, an improvement since yesterday. No accessory muscle use. ABd: soft, nt, nd, no hepatosplenomegaly. Normoactive bowel sounds. Extremities: 2+ edema up to the knees bilaterally, an improvement since yesterday, as well. LABORATORIES: Hematology: WBC of 10.8, a hemoglobin of 10.0, hematocrit of 31.7, platelets of 288, lymphocytes of 10.4, monocytes of 5.5, eosinophils of 25.0, neutrophils of 53.7. Chemistry: Sodium of 141, potassium of 3.7, chloride of 101, carbon dioxide 32, BUN of 21, creatinine of 0.97, anion gap of 8, fasting glucose of 86, calcium of 9.0, magnesium of 1.8. Her immunology showed that her IgE levels are 17,000. Serology: Aspergillus antibodies are still pending. No new imaging was done. ASSESSMENT: 1. Dyspnea with a history of asthma. 2. Elevated IgE. 3. Lower extremity edema. PLAN: 1. The patient is to continue Mucinex and chest physiotherapy. Lung sounds are improving. Will continue to monitor the patient daily. 2. For the elevated IgE, will consider the patient for Xolair or Nucala outpatient. 3. Lower extremity edema. The patient got one dose of 40 mg furosemide yesterday. On phyical exam lower extremity edema is improving. Will continue to monitor. My preceptor for this patient encounter was Jerome Degroot DO. The preceptor was physically present in the room during the encounter and was fully available. As needed, all aspects of the patient interview, examination, medical decision making process, and medical care plan development were reviewed and approved by the preceptor. The preceptor is aware and concurs with the plan as stated in the body of this note and will attest to such by her cosignature. I, Jerome Degroot, Agree with the above assessment and plan after having performed my independent evaluation of the patient which included a physical exam, MTDD
[2017-02-10 14:00] VITALS: BP 127/64
--- NOTE | 2017-02-10 17:55 | IPN ---
DATE: 02/10/2017 Ms. Ball is feeling a bit better today. She has been short of breath with movement. No chest pain. She has been producing sputum with the use of the Mucomyst inhaled. Thinks that was quite useful. Temperature 97.3, pulse 83, respiratory rate 18, blood pressure 125/68, 96% on 2 liters. INTAKE AND OUTPUT(I and O): Notable for negative fluid status of -620. No bowel movements. She is awake, appropriately interactive, pleasantly conversant. Breathing is symmetrical, much more rested than last evening. Inspiratory to expiratory (I:E) ratio is 1:4. Coarse upper airway sounds. Occasional polyphonic wheeze. Heart is distant sounding. Normal S1, S2. She is not tachycardic on my exam. Abdomen soft, doughy, nontender. She has lower extremity edema, improved from yesterday. White cell count 10.8, hemoglobin 10.0, platelets 288. BUN 21, creatinine 0.97. Immunoglobulin E (IgE) level is 17,000. Aspergillus antibodies are pending. ASSESSMENT: This is a 89-year-old who presented with respiratory distress and eosinophilia. PLAN: 1. Respiratory. Discussed this case in person with Dr. Degroot. She has bronchiectasis, asthma, pulmonary nodule and right middle lobe syndrome with collapse of the right middle lobe. She has declined bronchoscopy. We are pursuing medical management with some improvement. 2. Patient has congestive heart failure, which is most likely diastolic. She has gotten some extra diuresis. Will consider that again tomorrow. 3. Patient has resting tremor. She takes propranolol. She is somewhat reluctant to give up that medication. 4. Patient has hypertension. 5. Patient has coronary artery disease. 6. Patient has rheumatoid arthritis. 7. Patient has obstructive sleep apnea (GALO). Is not compliant with continuous positive airway pressure (CPAP). Has nocturnal hypoxemia. 8. Morbid obesity MTDD
[2017-02-10] MEDS: ASPIRIN 81 MG ENTERIC TAB PO SCH (19:46)
[2017-02-10] MEDS: ATORVASTATIN 20 MG TAB PO SCH (19:46)
[2017-02-10] MEDS: VITAMIN D 1,000 INTERNATIONAL UNITS TABLET PO SCH (19:47)
[2017-02-10 22:00] VITALS: BP 143/62
[2017-02-11] MEDS: ALBUTEROL SULFATE 2.5 MG/0.5 ML INH NEB SOLN INH SCH ×5 (04:02→20:15)
[2017-02-11 06:00] VITALS: BP 136/74
[2017-02-11] MEDS: LEVOTHYROXINE 100MCG TABLET (0.1MG) PO SCH (06:14)
[2017-02-11] MEDS: methylPREDNISolone INJ 40 MG/1 ML VIAL (J2920) IV SCH ×2 (06:14→18:00)
[2017-02-11] MEDS: IBUPROFEN 800 MG TAB PO PRN ×2 (06:22→18:20)
[2017-02-11 07:01] LABS: BASO # 0.1 K/mm3 (0.0-0.2); BASO % 0.7 % (0.0-1.0); EOS # 2.6 K/mm3 (0.0-0.50); EOS % 24.5 % (0.0-3.0); LARGE UNSTAINED CELL # 0.4 K/mm3 (0.0-0.4); LARGE UNSTAINED CELL % 4.1 % (0.0-4.0); LYMPH # 1.5 K/mm3 (1.5-4.5); LYMPH % 10.2 % (24.0-44.0); MEAN CORPUSCULAR HGB CONC 31.6 g/dl (32.0-36.5); MEAN CORPUSCULAR VOLUME 104.6 fl (80.0-96.0); MONO # 0.6 K/mm3 (0.0-0.8); MONO % 5.4 % (0.0-5.0); NEUTROPHILS # 5.9 K/mm3 (1.8-7.7); NEUTROPHILS % 55.1 % (36.0-66.0); PLATELET COUNT, AUTOMATED 284 k/mm3 (150-450); RED CELL DISTRIBUTION WIDTH 14.6 % (11.5-14.5); WHITE BLOOD COUNT 10.7 K/mm3 (4.0-10.0)
[2017-02-11 07:17] LABS: CALCIUM LEVEL 9.5 MG/DL (8.8-10.2); GLOMERULAR FILTRATION RATE 56.5 (>32); MAGNESIUM LEVEL 2.1 MG/DL (1.8-2.4); POTASSIUM SERUM 3.8 MEQ/L (3.5-5.1)
[2017-02-11] MEDS: DULERA INH SCH ×3 (07:57→22:27)
[2017-02-11] MEDS: INCRUSE ELLIPTA (PATIENT'S OWN MED) INH SCH (07:58)
[2017-02-11] MEDS: ACETYLCYSTEINE 20% 4 ML VIAL (200MG/ML) INH SCH ×2 (08:09→20:15)
[2017-02-11] MEDS: guaiFENesin ER 600 MG TAB PO SCH ×2 (10:53→19:42)
[2017-02-11] MEDS: PROPRANOLOL 20 MG TAB PO SCH ×2 (10:53→19:44)
[2017-02-11] MEDS: sulfaSALAzine 500 MG TABEC PO SCH ×2 (10:54→19:43)
[2017-02-11] MEDS: OYSTER SHELL CALCIUM 500 MG TAB PO SCH ×2 (10:55→19:45)
[2017-02-11] MEDS: FUROSEMIDE 20 MG TAB PO SCH (10:56)
[2017-02-11] MEDS: PRIMIDONE 250 MG TAB PO SCH ×2 (10:57→19:45)
[2017-02-11] MEDS: SPIRONOLACTONE 25 MG TAB PO SCH (10:58)
[2017-02-11] MEDS: CETIRIZINE (ZyrTEC) 10 MG TAB PO SCH (10:58)
[2017-02-11] MEDS: ENOXAPARIN 40 MG/0.4 ML SYRINGE (J1650) SC SCH (10:59)
[2017-02-11] MEDS: FLUTICASONE PROP 0.05% NASAL SPRAY 16 GM (FLONASE) SCH ×2 (11:00→19:50)
[2017-02-11 14:00] VITALS: BP 133/93
--- NOTE | 2017-02-11 17:04 | IPN ---
DATE: 02/11/2017 SUBJECTIVE: Ms. Ball is feeling somewhat sad this morning. She is disappointed that she is sick and in the hospital and is unclear about what her living arrangements might be post her hospital stay and is worried about the way her health is progressing. OBJECTIVE: VITAL SIGNS: Temperature is 97, pulse 86, respiratory rate 18, blood pressure 136/74, 93% on two liters. Intake and output notable for positive fluid balance of 835, one bowel movement yesterday. GENERAL: She is awake, appropriately interactive, at times tearful, but consolable. HEENT: Mucous membranes are moist. NECK: Supple, thick. RESPIRATORY: Breathing symmetrically diminished with an I to E ratio of 1:4. Breath sounds are notable for upper airway component which is also symmetrical. HEART: Distant sounding normal S1, S2. Radial pulses 2+. Capillary refill is less than two seconds. ABDOMEN: Soft, doughy, nontender. LABORATORY DATA: White cell count 10.7, hemoglobin 10.2, and platelets of 284. BUN 24, creatinine one. ASSESSMENT: A 81-year-old who presented with respiratory distress, eosinophilia. PLAN: 1. Respiratory: I discussed this case with Dr. Degroot who is adding Singulair to the patient's care. The patient is also requesting increased Mucomyst and discontinuing vest therapy which I will defer to Dr. Degroot. The patient has declined bronchoscopy during this stay. 2. The patient has congestive heart failure which is most likely diastolic. She may benefit from extra diuresis. 3. The patient has essential tremor which she has had for many years. She is taking propranolol. She is reluctant to stop that medication. We did discuss that again today. 4. The patient has hypertension. 5. The patient has coronary artery disease. 6. The patient has rheumatoid arthritis. 7. The patient has obstructive sleep apnea and is noncompliant with continuous positive airway pressure (CPAP) and uses nocturnal oxygen. 8. Morbid obesity MTDD
[2017-02-11] MEDS: VITAMIN D 1,000 INTERNATIONAL UNITS TABLET PO SCH (19:44)
[2017-02-11] MEDS: ATORVASTATIN 20 MG TAB PO SCH (19:45)
[2017-02-11] MEDS: ASPIRIN 81 MG ENTERIC TAB PO SCH (19:45)
[2017-02-11] MEDS: MONTELUKAST 10 MG TAB PO SCH (19:46)
[2017-02-11 22:00] VITALS: BP 144/62
[2017-02-12] MEDS: ALBUTEROL SULFATE 2.5 MG/0.5 ML INH NEB SOLN INH SCH ×7 (00:03→23:47)
[2017-02-12 06:00] VITALS: BP 144/88
[2017-02-12] MEDS: LEVOTHYROXINE 100MCG TABLET (0.1MG) PO SCH (06:24)
[2017-02-12] MEDS: methylPREDNISolone INJ 40 MG/1 ML VIAL (J2920) IV SCH ×2 (06:24→17:03)
[2017-02-12] MEDS: IBUPROFEN 800 MG TAB PO PRN ×2 (06:30→17:03)
[2017-02-12 07:14] LABS: BASO # 0.1 K/mm3 (0.0-0.2); BASO % 0.5 % (0.0-1.0); EOS # 3.4 K/mm3 (0.0-0.50); EOS % 26.7 % (0.0-3.0); LARGE UNSTAINED CELL # 0.4 K/mm3 (0.0-0.4); LARGE UNSTAINED CELL % 3.2 % (0.0-4.0); LYMPH # 1.8 K/mm3 (1.5-4.5); LYMPH % 10.7 % (24.0-44.0); MEAN CORPUSCULAR HGB CONC 31.8 g/dl (32.0-36.5); MEAN CORPUSCULAR VOLUME 103.9 fl (80.0-96.0); MONO # 0.7 K/mm3 (0.0-0.8); MONO % 5.2 % (0.0-5.0); NEUTROPHILS # 6.9 K/mm3 (1.8-7.7); NEUTROPHILS % 53.7 % (36.0-66.0); PLATELET COUNT, AUTOMATED 303 k/mm3 (150-450); RED CELL DISTRIBUTION WIDTH 14.4 % (11.5-14.5); WHITE BLOOD COUNT 12.8 K/mm3 (4.0-10.0)
[2017-02-12 07:29] LABS: CALCIUM LEVEL 9.3 MG/DL (8.8-10.2); CREATININE FOR GFR 0.97 MG/DL (0.55-1.02); GLOMERULAR FILTRATION RATE 58.5 (>32); MAGNESIUM LEVEL 1.8 MG/DL (1.8-2.4); POTASSIUM SERUM 4.1 MEQ/L (3.5-5.1)
[2017-02-12] MEDS: DULERA INH SCH ×2 (07:50→20:21)
[2017-02-12] MEDS ORDERED: FUROSEMIDE 40 MG/4 ML VIAL (J1940) IV ONE (08:00)
--- NOTE | 2017-02-12 08:00 | IPN ---
DATE: 02/12/2017 Ms Ball is still somewhat short of breath. She is coughing, Mucomyst is helpful. She used the acapella device in line with her nebulizer which apparently has been helpful as well but is quite draining physically. Temperature is 98.5, pulse 66, respiratory rate 18, blood pressure 144/88, 92% on 2 liters. Input and output notable for a positive fluid balance of 1120. No bowel movement noted yesterday. She is awake, appropriately interactive. Her breathing is rested. There is no accessory muscle use. She is speaking in sentences. I/E ratio is 1:4 with decreased aeration throughout with some upper airway noises. Heart is in a regular rate and rhythm. Normal S1, S2. Abdomen soft, doughy, nontender. There is 2+ bilateral lower extremity edema, more on the right than the left. She has been sitting upright with her legs dangling over the bed for a little bit at this point. White cell count 12.8, hemoglobin 12.1, BUN 24, creatinine 0.97. My assessment is as follows: This is a 81-year-old with respiratory distress and eosinophilia found to have right middle lobe syndrome, bronchiectasis. Plan is as follows: 1. Respiratory: The patient is generally improved. Will repeat a chest x-ray today. Continue Mucomyst for mal clearance of secretions. Greatly appreciate Dr. Degroot assistance in the case. The patient continues on Solu-Medrol twice daily. 2. The patient has congestive heart failure which is most likely diastolic. The patient consents to extra diuresis today. 3. The patient has essential tremor, which is more notable on exam today than it has previously been. She was taking propranolol and does not really want to stop that medication. 4. The patient has hypertension. 5. The patient has coronary artery disease. 6. The patient has rheumatoid arthritis. 7. The patient has obstructive sleep apnea, noncompliant with CPAP. 8. Morbid obesity MTDD
[2017-02-12] MEDS: ENOXAPARIN 40 MG/0.4 ML SYRINGE (J1650) SC SCH (08:35)
[2017-02-12 08:36] VITALS: BP 144/88
[2017-02-12] MEDS: CETIRIZINE (ZyrTEC) 10 MG TAB PO SCH (08:36)
[2017-02-12] MEDS: PROPRANOLOL 20 MG TAB PO SCH ×2 (08:36→21:17)
[2017-02-12] MEDS: sulfaSALAzine 500 MG TABEC PO SCH ×2 (08:36→21:16)
[2017-02-12] MEDS: OYSTER SHELL CALCIUM 500 MG TAB PO SCH ×2 (08:36→21:17)
[2017-02-12] MEDS: PRIMIDONE 250 MG TAB PO SCH ×2 (08:37→21:17)
[2017-02-12] MEDS: SPIRONOLACTONE 25 MG TAB PO SCH (08:37)
[2017-02-12] MEDS: guaiFENesin ER 600 MG TAB PO SCH ×3 (08:37→21:18)
[2017-02-12] MEDS: FLUTICASONE PROP 0.05% NASAL SPRAY 16 GM (FLONASE) SCH ×2 (08:37→21:18)
[2017-02-12] MEDS: ACETYLCYSTEINE 20% 4 ML VIAL (200MG/ML) INH SCH ×2 (08:44→20:21)
--- NOTE | 2017-02-12 10:12 | REP ---
PA and lateral chest: Comparison is 02/08/2017. The previous interstitial edema has significantly improved. The costophrenic angles are mildly effaced and this may represent small bilateral pleural effusions. There is focal increased density inferiorly in the right lung and along the fissure on the lateral view suggestive of focal atelectasis. This is unchanged. Cardiac size is borderline enlarged. The jacklyn, mediastinum, bony thorax are unremarkable. Impression: Persisting focal atelectasis inferiorly in the right lung. The previous interstitial infiltrates have resolved. Questionable small bilateral pleural effusions. Signed by Evgeny Russ MD 02/12/2017 10:03 A
[2017-02-12] MEDS: INCRUSE ELLIPTA (PATIENT'S OWN MED) INH SCH (11:11)
[2017-02-12] MEDS: ASPIRIN 81 MG ENTERIC TAB PO SCH (21:17)
[2017-02-12] MEDS: VITAMIN D 1,000 INTERNATIONAL UNITS TABLET PO SCH (21:17)
[2017-02-12] MEDS: ATORVASTATIN 20 MG TAB PO SCH (21:18)
[2017-02-12] MEDS: MONTELUKAST 10 MG TAB PO SCH (21:18)
[2017-02-12 22:00] VITALS: BP 143/66
[2017-02-13] MEDS: ALBUTEROL SULFATE 2.5 MG/0.5 ML INH NEB SOLN INH SCH ×6 (03:45→23:42)
[2017-02-13] MEDS: IBUPROFEN 800 MG TAB PO PRN ×2 (03:52→20:29)
[2017-02-13 06:00] VITALS: BP 159/78
[2017-02-13] MEDS: methylPREDNISolone INJ 40 MG/1 ML VIAL (J2920) IV SCH ×2 (06:30→18:45)
[2017-02-13] MEDS: LEVOTHYROXINE 100MCG TABLET (0.1MG) PO SCH (06:30)
[2017-02-13] MEDS: ACETYLCYSTEINE 20% 4 ML VIAL (200MG/ML) INH SCH ×2 (07:11→19:59)
[2017-02-13] MEDS: DULERA INH SCH ×2 (07:11→19:59)
[2017-02-13] MEDS: INCRUSE ELLIPTA (PATIENT'S OWN MED) INH SCH (07:13)
[2017-02-13 07:19] LABS: ADD MANUAL DIFFER YES; MEAN CORPUSCULAR HEMOGLOBIN 33.3 pg (27.0-33.0); MEAN CORPUSCULAR HGB CONC 32.1 g/dl (32.0-36.5); MEAN CORPUSCULAR VOLUME 103.5 fl (80.0-96.0); PLATELET COUNT, AUTOMATED 317 k/mm3 (150-450); RED CELL DISTRIBUTION WIDTH 14.5 % (11.5-14.5)
[2017-02-13 07:29] LABS: CALCIUM LEVEL 9.3 MG/DL (8.8-10.2); GLOMERULAR FILTRATION RATE 56.5 (>32); MAGNESIUM LEVEL 1.7 MG/DL (1.8-2.4); POTASSIUM SERUM 3.7 MEQ/L (3.5-5.1)
[2017-02-13 08:18] LABS: ANISOCYTOSIS 1+; BANDS 4 % (< 11); BASOPHILS 1 % (0-4); EOSINOPHILS 28 % (0-5)
[2017-02-13] MEDS: guaiFENesin ER 600 MG TAB PO SCH ×2 (09:00→20:30)
[2017-02-13] MEDS: OYSTER SHELL CALCIUM 500 MG TAB PO SCH ×2 (10:01→20:28)
[2017-02-13] MEDS: ENOXAPARIN 40 MG/0.4 ML SYRINGE (J1650) SC SCH (10:01)
[2017-02-13] MEDS: PRIMIDONE 250 MG TAB PO SCH ×2 (10:02→20:30)
[2017-02-13] MEDS: FUROSEMIDE 40 MG/4 ML VIAL (J1940) IV SCH ×2 (10:02→16:22)
[2017-02-13] MEDS: sulfaSALAzine 500 MG TABEC PO SCH ×2 (10:02→20:29)
[2017-02-13] MEDS: SPIRONOLACTONE 25 MG TAB PO SCH (10:02)
[2017-02-13] MEDS: FLUTICASONE PROP 0.05% NASAL SPRAY 16 GM (FLONASE) SCH ×2 (10:03→20:30)
[2017-02-13] MEDS: CETIRIZINE (ZyrTEC) 10 MG TAB PO SCH (10:03)
--- NOTE | 2017-02-13 13:43 | IPN ---
DATE: 02/13/2017 Ms. Ball is feeling a little better today. She has no complaints of chest pain. She is still short of breath. Mucomyst is not producing as much sputum. She is worried about her discharge plan and nervous about going home. Temperature 98.4, pulse 78, respiratory rate 15, blood pressure 159/78 and 90% on room air. Ins and outs notable for negative fluid balance of -460, no bowel movements yesterday. She is awake, appropriately interactive, pleasantly conversant, speaking in complete sentences, no accessory muscle use. Breathing is symmetrically decreased. No wheezes are noted. She does have some upper airway sounds heard throughout. Heart is distant sounding. Normal S1, S2. Abdomen soft, doughy, nontender. White cell count 13, hemoglobin 9.8, and platelets of 317. Albumin 2.7. Creatinine 1. ASSESSMENT: This is an 81-year-old with respiratory distress and eosinophilia found to have right middle lobe syndrome and bronchiectasis. PLAN: 1. Respiratory. Discussed this case in general with Dr. Degroot. The patient is improving. Chest x-ray yesterday showed persisting focal atelectasis in the right lung. The other infiltrates previously noted have resolved. 2. Patient has congestive heart failure with most likely diastolic dysfunction. Will give more IV diuresis today. I have discussed this with patient in person. 3. Patient has essential tremor which is more notable on exam. The patient does consent to stopping propranolol and with the [employer] school professional neurologist we are switching her propranolol to methazolamide 20 mg by mouth twice a day and continuing her on primidone. Will watch for effect. Hopefully, this will effect her respiratory status positively. 4. Patient has hypertension. 5. Patient has coronary artery disease. 6. Patient has rheumatoid arthritis. 7. Patient has obstructive sleep apnea and is noncompliant with CPAP.
[2017-02-13 14:00] VITALS: BP 149/72
[2017-02-13] MEDS ORDERED: MAG SULF 1GM/100ML (MAG RUN) 1 GM in APPROPRIATE DILUENT 1 EA IV ONE (15:00)
[2017-02-13] MEDS: ATORVASTATIN 20 MG TAB PO SCH (20:29)
[2017-02-13] MEDS: VITAMIN D 1,000 INTERNATIONAL UNITS TABLET PO SCH (20:29)
[2017-02-13] MEDS: ASPIRIN 81 MG ENTERIC TAB PO SCH (20:30)
[2017-02-13] MEDS: MONTELUKAST 10 MG TAB PO SCH (20:30)
[2017-02-13 22:00] VITALS: BP 137/79
[2017-02-14] MEDS: ALBUTEROL SULFATE 2.5 MG/0.5 ML INH NEB SOLN INH SCH ×5 (04:05→19:41)
[2017-02-14] MEDS: methylPREDNISolone INJ 40 MG/1 ML VIAL (J2920) IV SCH ×2 (04:50→17:49)
[2017-02-14] MEDS: LEVOTHYROXINE 100MCG TABLET (0.1MG) PO SCH (04:50)
[2017-02-14] MEDS: IBUPROFEN 800 MG TAB PO PRN (05:01)
[2017-02-14 06:00] VITALS: BP 148/82
[2017-02-14] MEDS: DULERA INH SCH ×2 (07:11→19:41)
[2017-02-14] MEDS: ACETYLCYSTEINE 20% 4 ML VIAL (200MG/ML) INH SCH ×2 (07:12→19:42)
[2017-02-14] MEDS: INCRUSE ELLIPTA (PATIENT'S OWN MED) INH SCH (07:13)
[2017-02-14] MEDS: FUROSEMIDE 40 MG/4 ML VIAL (J1940) IV SCH (09:00)
[2017-02-14] MEDS: guaiFENesin ER 600 MG TAB PO SCH ×2 (09:00→20:57)
[2017-02-14] MEDS: ENOXAPARIN 40 MG/0.4 ML SYRINGE (J1650) SC SCH (10:16)
[2017-02-14] MEDS: CETIRIZINE (ZyrTEC) 10 MG TAB PO SCH (10:16)
[2017-02-14] MEDS: PRIMIDONE 250 MG TAB PO SCH ×2 (10:17→20:52)
[2017-02-14] MEDS: sulfaSALAzine 500 MG TABEC PO SCH ×2 (10:17→20:51)
[2017-02-14] MEDS: SPIRONOLACTONE 25 MG TAB PO SCH (10:17)
[2017-02-14] MEDS: OYSTER SHELL CALCIUM 500 MG TAB PO SCH ×2 (10:17→20:52)
[2017-02-14] MEDS: FLUTICASONE PROP 0.05% NASAL SPRAY 16 GM (FLONASE) SCH ×2 (10:18→20:53)
[2017-02-14 14:00] VITALS: BP 129/77
[2017-02-14] MEDS: SENOKOT S TAB PO SCH (20:51)
[2017-02-14] MEDS: MONTELUKAST 10 MG TAB PO SCH (20:52)
[2017-02-14] MEDS: ATORVASTATIN 20 MG TAB PO SCH (20:52)
[2017-02-14] MEDS: ASPIRIN 81 MG ENTERIC TAB PO SCH (20:53)
[2017-02-14] MEDS: VITAMIN D 1,000 INTERNATIONAL UNITS TABLET PO SCH (20:53)
[2017-02-14 22:00] VITALS: BP 128/57
[2017-02-15] MEDS: ALBUTEROL SULFATE 2.5 MG/0.5 ML INH NEB SOLN INH SCH ×6 (00:05→20:41)
[2017-02-15] MEDS: IBUPROFEN 800 MG TAB PO PRN (02:18)
[2017-02-15 06:00] VITALS: BP 158/70
[2017-02-15] MEDS: methylPREDNISolone INJ 40 MG/1 ML VIAL (J2920) IV SCH ×2 (06:06→17:24)
[2017-02-15] MEDS: LEVOTHYROXINE 100MCG TABLET (0.1MG) PO SCH (06:06)
[2017-02-15] MEDS: DULERA INH SCH ×2 (07:54→20:41)
[2017-02-15] MEDS: ACETYLCYSTEINE 20% 4 ML VIAL (200MG/ML) INH SCH (07:57)
[2017-02-15] MEDS: FUROSEMIDE 20 MG TAB PO SCH (08:54)
[2017-02-15] MEDS: sulfaSALAzine 500 MG TABEC PO SCH ×2 (08:54→20:49)
[2017-02-15] MEDS: PRIMIDONE 250 MG TAB PO SCH ×3 (08:55→20:48)
[2017-02-15] MEDS: OYSTER SHELL CALCIUM 500 MG TAB PO SCH ×2 (08:55→20:49)
[2017-02-15] MEDS: CETIRIZINE (ZyrTEC) 10 MG TAB PO SCH (08:56)
[2017-02-15] MEDS: SPIRONOLACTONE 25 MG TAB PO SCH (08:57)
[2017-02-15] MEDS: SENOKOT S TAB PO SCH ×2 (08:57→20:48)
[2017-02-15] MEDS: ENOXAPARIN 40 MG/0.4 ML SYRINGE (J1650) SC SCH (08:58)
[2017-02-15] MEDS: guaiFENesin ER 600 MG TAB PO SCH ×2 (08:58→20:54)
[2017-02-15] MEDS: FLUTICASONE PROP 0.05% NASAL SPRAY 16 GM (FLONASE) SCH ×2 (08:59→20:50)
[2017-02-15] MEDS ORDERED: NEUPRO 4 MG/24 HR TD SCH (09:00)
[2017-02-15] MEDS: INCRUSE ELLIPTA (PATIENT'S OWN MED) INH SCH (09:00)
[2017-02-15 10:59] LABS: BASO % 0.3 % (0.0-1.0); EOS # 2.7 K/mm3 (0.0-0.50); LARGE UNSTAINED CELL # 0.3 K/mm3 (0.0-0.4); LARGE UNSTAINED CELL % 2.4 % (0.0-4.0); LYMPH # 0.8 K/mm3 (1.5-4.5); LYMPH % 7.5 % (24.0-44.0); MEAN CORPUSCULAR HEMOGLOBIN 34.1 pg (27.0-33.0); MEAN CORPUSCULAR HGB CONC 33.1 g/dl (32.0-36.5); MEAN CORPUSCULAR VOLUME 103.1 fl (80.0-96.0); MONO # 0.5 K/mm3 (0.0-0.8); MONO % 4.5 % (0.0-5.0); NEUTROPHILS # 6.8 K/mm3 (1.8-7.7); NEUTROPHILS % 61.2 % (36.0-66.0); PLATELET COUNT, AUTOMATED 330 k/mm3 (150-450); RED CELL DISTRIBUTION WIDTH 14.4 % (11.5-14.5); WHITE BLOOD COUNT 11.1 K/mm3 (4.0-10.0)
[2017-02-15 11:11] LABS: CALCIUM LEVEL 9.4 MG/DL (8.8-10.2); CREATININE FOR GFR 0.96 MG/DL (0.55-1.02); GLOMERULAR FILTRATION RATE 59.2 (>32); MAGNESIUM LEVEL 1.8 MG/DL (1.8-2.4); POTASSIUM SERUM 4.5 MEQ/L (3.5-5.1)
[2017-02-15 14:00] VITALS: BP 148/71
[2017-02-15] MEDS: ACETAMINOPHEN 325 MG TAB PO PRN ×2 (16:00→20:48)
[2017-02-15] MEDS: ATORVASTATIN 20 MG TAB PO SCH (20:48)
[2017-02-15] MEDS: ASPIRIN 81 MG ENTERIC TAB PO SCH (20:48)
[2017-02-15] MEDS: VITAMIN D 1,000 INTERNATIONAL UNITS TABLET PO SCH (20:48)
[2017-02-15] MEDS: MONTELUKAST 10 MG TAB PO SCH (20:49)
[2017-02-15 22:00] VITALS: BP 144/70
[2017-02-16] MEDS: ALBUTEROL SULFATE 2.5 MG/0.5 ML INH NEB SOLN INH SCH ×6 (00:25→20:38)
[2017-02-16] MEDS: methylPREDNISolone INJ 40 MG/1 ML VIAL (J2920) IV SCH (05:52)
[2017-02-16] MEDS: LEVOTHYROXINE 100MCG TABLET (0.1MG) PO SCH (05:52)
[2017-02-16 06:00] VITALS: BP 140/74
[2017-02-16] MEDS: DULERA INH SCH ×2 (07:19→20:39)
[2017-02-16] MEDS: INCRUSE ELLIPTA (PATIENT'S OWN MED) INH SCH (07:20)
[2017-02-16] MEDS: PRIMIDONE 250 MG TAB PO SCH ×3 (08:00→20:03)
[2017-02-16] MEDS: FUROSEMIDE 20 MG TAB PO SCH (08:00)
[2017-02-16] MEDS: SPIRONOLACTONE 25 MG TAB PO SCH (08:01)
[2017-02-16] MEDS: guaiFENesin ER 600 MG TAB PO SCH ×2 (08:01→20:05)
[2017-02-16] MEDS: SENOKOT S TAB PO SCH ×2 (08:01→20:05)
[2017-02-16] MEDS: ENOXAPARIN 40 MG/0.4 ML SYRINGE (J1650) SC SCH (08:01)
[2017-02-16] MEDS: CETIRIZINE (ZyrTEC) 10 MG TAB PO SCH (08:01)
[2017-02-16] MEDS: OYSTER SHELL CALCIUM 500 MG TAB PO SCH ×2 (08:01→20:03)
[2017-02-16] MEDS: sulfaSALAzine 500 MG TABEC PO SCH ×2 (08:01→20:03)
[2017-02-16] MEDS: FLUTICASONE PROP 0.05% NASAL SPRAY 16 GM (FLONASE) SCH ×2 (08:02→20:05)
--- NOTE | 2017-02-16 08:37 | IPNPDOC ---
Text Note Date of Service The patient was seen on 02/15/17. NOTE Subjective: Patient seen and examined at bedside. She still complains of general lethargy and malaise. Still short of breath. Very concerned regarding discharge plan. Objective: General: NAD, lying comfortably in chair HEENT: NC/AT, EOMI Lungs: diminished breath sounds Heart: +S1S2, RRR Abd: soft, obese, NT Ext: trace peripheral edema Psych: AAOx3, anxious Assessment/Plan: This is an 81-year-old with respiratory distress and eosinophilia found to have right middle lobe syndrome and bronchiectasis. 1. Respiratory - patient appears to be slowly improving - most recent CXR = persisting focal atelectasis in right lung - other infiltrates previously noted have resolved - follow as per pulmo - assistance appreciated - helix/respiratory treatments - IV steroid therapy 2. CHF - transitioned to PO lasix 3. Essential tremor - methazolamide 20 mg by mouth twice a day + primidone 4. HTN - aldactone, lasix 5. CAD - aspirin, lipitor 6. RA 7. GALO noncompliant with CPAP 8. Hypothyroidism - synthroid 9. DVT prophylaxis - Lovenox VS,Fishbone, I+O VS, Fishbone, I+O Laboratory Tests 02/15/17 10:29 Red Blood Count 2.96 L, Mean Corpuscular Volume 103.1 H, Mean Corpuscular Hemoglobin 34.1 H, Mean Corpuscular Hemoglobin Concent 33.1, Red Cell Distribution Width 14.4, Neutrophils (%) (Auto) 61.2, Lymphocytes (%) (Auto) 7.5 L, Monocytes (%) (Auto) 4.5, Eosinophils (%) (Auto) 24.0 H, Basophils (%) ( Auto) 0.3, Neutrophils # (Auto) 6.8, Lymphocytes # (Auto) 0.8 L, Monocytes # ( Auto) 0.5, Eosinophils # (Auto) 2.7 H, Basophils # (Auto) 0.0, Calcium Level 9.4 Vital Signs Date Time Temp Pulse Resp B/P (MAP) Pulse Ox O2 Delivery O2 Flow Rate FiO2 02/16/17 06:00 98.2 74 18 140/74 (96) 94 Room Air 02/15/17 20:55 2.0 CASSANDRA MEDINA MD Feb 16, 2017 08:37
--- NOTE | 2017-02-16 08:38 | IPNPDOC ---
Text Note Date of Service The patient was seen on 02/16/17. NOTE Subjective: Patient seen and examined at bedside. Patient is feeling better today, still somewhat anxious. Very concerned regarding discharge plan. Objective: General: NAD, lying comfortably in chair HEENT: NC/AT, EOMI Lungs: diminished breath sounds Heart: +S1S2, RRR Abd: soft, obese, NT Ext: trace peripheral edema Psych: AAOx3, anxious but improved from yesterday Assessment/Plan: This is an 81-year-old with respiratory distress and eosinophilia found to have right middle lobe syndrome and bronchiectasis. 1. Respiratory - patient appears to be slowly improving - most recent CXR = persisting focal atelectasis in right lung - other infiltrates previously noted have resolved - follow as per pulmo - assistance appreciated - helix/respiratory treatments - IV steroid therapy 2. CHF - transitioned to PO lasix 3. Essential tremor - methazolamide 20 mg by mouth twice a day + primidone 4. HTN - aldactone, lasix 5. CAD - aspirin, lipitor 6. RA 7. GALO noncompliant with CPAP 8. Hypothyroidism - synthroid 9. DVT prophylaxis - Lovenox VS,Fishbone, I+O VS, Fishbone, I+O Laboratory Tests 02/15/17 10:29 Red Blood Count 2.96 L, Mean Corpuscular Volume 103.1 H, Mean Corpuscular Hemoglobin 34.1 H, Mean Corpuscular Hemoglobin Concent 33.1, Red Cell Distribution Width 14.4, Neutrophils (%) (Auto) 61.2, Lymphocytes (%) (Auto) 7.5 L, Monocytes (%) (Auto) 4.5, Eosinophils (%) (Auto) 24.0 H, Basophils (%) ( Auto) 0.3, Neutrophils # (Auto) 6.8, Lymphocytes # (Auto) 0.8 L, Monocytes # ( Auto) 0.5, Eosinophils # (Auto) 2.7 H, Basophils # (Auto) 0.0, Calcium Level 9.4 Vital Signs Date Time Temp Pulse Resp B/P (MAP) Pulse Ox O2 Delivery O2 Flow Rate FiO2 02/16/17 06:00 98.2 74 18 140/74 (96) 94 Room Air 02/15/17 20:55 2.0 CASSANDRA MEDINA MD Feb 16, 2017 08:38
[2017-02-16] MEDS: predniSONE 20 MG TAB PO SCH (12:29)
[2017-02-16 14:00] VITALS: BP 132/73
[2017-02-16] MEDS: ACETAMINOPHEN 325 MG TAB PO PRN (15:59)
[2017-02-16] MEDS: ASPIRIN 81 MG ENTERIC TAB PO SCH (20:03)
[2017-02-16] MEDS: ACETAMINOPHEN TAB 650MG DOSE (2X325MG) PO PRN (20:04)
[2017-02-16] MEDS: MONTELUKAST 10 MG TAB PO SCH (20:04)
[2017-02-16] MEDS: VITAMIN D 1,000 INTERNATIONAL UNITS TABLET PO SCH (20:04)
[2017-02-16] MEDS: ATORVASTATIN 20 MG TAB PO SCH (20:05)
[2017-02-16 22:00] VITALS: BP 125/62
[2017-02-17] MEDS: ALBUTEROL SULFATE 2.5 MG/0.5 ML INH NEB SOLN INH SCH ×6 (00:10→19:44)
[2017-02-17] MEDS: ACETAMINOPHEN TAB 650MG DOSE (2X325MG) PO PRN (02:49)
[2017-02-17 06:00] VITALS: BP 130/65
[2017-02-17] MEDS: LEVOTHYROXINE 100MCG TABLET (0.1MG) PO SCH (06:06)
[2017-02-17] MEDS: DULERA INH SCH ×2 (07:44→21:00)
[2017-02-17] MEDS: INCRUSE ELLIPTA (PATIENT'S OWN MED) INH SCH (07:45)
[2017-02-17] MEDS: ENOXAPARIN 40 MG/0.4 ML SYRINGE (J1650) SC SCH (08:44)
[2017-02-17] MEDS: OYSTER SHELL CALCIUM 500 MG TAB PO SCH ×2 (08:44→20:57)
[2017-02-17] MEDS: guaiFENesin ER 600 MG TAB PO SCH ×2 (08:44→21:00)
[2017-02-17] MEDS: sulfaSALAzine 500 MG TABEC PO SCH ×2 (08:44→21:01)
[2017-02-17] MEDS: PRIMIDONE 250 MG TAB PO SCH ×3 (08:45→20:57)
[2017-02-17] MEDS: SPIRONOLACTONE 25 MG TAB PO SCH (08:45)
[2017-02-17] MEDS: predniSONE 20 MG TAB PO SCH (08:45)
[2017-02-17] MEDS: FUROSEMIDE 20 MG TAB PO SCH (08:45)
[2017-02-17] MEDS: SENOKOT S TAB PO SCH ×2 (08:45→20:58)
[2017-02-17] MEDS: CETIRIZINE (ZyrTEC) 10 MG TAB PO SCH (08:45)
[2017-02-17] MEDS: FLUTICASONE PROP 0.05% NASAL SPRAY 16 GM (FLONASE) SCH ×2 (08:46→21:02)
--- NOTE | 2017-02-17 10:13 | IPNPDOC ---
Text Note Date of Service The patient was seen on 02/17/17. NOTE Subjective: Patient seen and examined at bedside. Complains of right knee pain. States she has known DJD, she describes as 'bone on bone'. Patient is feeling better today, still somewhat anxious, still concerned about her discharge planning. 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 1. Respiratory - patient appears to be slowly improving - most recent CXR = persisting focal atelectasis in right lung - other infiltrates previously noted have resolved - follow as per pulmo - assistance appreciated - heliox/respiratory treatments - transitioned to PO prednisone 2. CHF - transitioned to PO lasix 3. Essential tremor - methazolamide 20 mg by mouth twice a day + primidone 4. HTN - aldactone, lasix 5. CAD - aspirin, lipitor 6. RA 7. GALO noncompliant with CPAP 8. Hypothyroidism - synthroid 9. DVT prophylaxis - Lovenox VS,Fishbone, I+O VS, Fishbone, I+O Vital Signs Date Time Temp Pulse Resp B/P (MAP) Pulse Ox O2 Delivery O2 Flow Rate FiO2 02/17/17 06:00 98.4 84 20 130/65 (86) 95 Nasal Cannula 2.0 I&O- Last 24 Hours up to 6 AM 02/18/17 06:00 Intake Total 360 ml Balance 360 ml CASSANDRA MEDINA MD Feb 17, 2017 10:13
[2017-02-17] MEDS: ACETAMINOPHEN 500 MG TAB PO PRN ×3 (11:01→23:01)
[2017-02-17 14:00] VITALS: BP 118/53
[2017-02-17] MEDS: ATORVASTATIN 20 MG TAB PO SCH (20:58)
[2017-02-17] MEDS: MONTELUKAST 10 MG TAB PO SCH (20:59)
[2017-02-17] MEDS: VITAMIN D 1,000 INTERNATIONAL UNITS TABLET PO SCH (21:00)
[2017-02-17] MEDS: ASPIRIN 81 MG ENTERIC TAB PO SCH (21:00)
[2017-02-17 22:00] VITALS: BP 109/59
[2017-02-18] MEDS: ALBUTEROL SULFATE 2.5 MG/0.5 ML INH NEB SOLN INH SCH ×7 (04:43→23:24)
[2017-02-18 06:00] VITALS: BP 128/72
[2017-02-18] MEDS: LEVOTHYROXINE 100MCG TABLET (0.1MG) PO SCH (06:07)
[2017-02-18 06:41] LABS: BASO # 0.1 K/mm3 (0.0-0.2); BASO % 0.7 % (0.0-1.0); EOS # 3.6 K/mm3 (0.0-0.50); EOS % 27.7 % (0.0-3.0); LARGE UNSTAINED CELL # 0.3 K/mm3 (0.0-0.4); LARGE UNSTAINED CELL % 2.1 % (0.0-4.0); LYMPH % 15.3 % (24.0-44.0); MEAN CORPUSCULAR HEMOGLOBIN 33.8 pg (27.0-33.0); MEAN CORPUSCULAR HGB CONC 32.5 g/dl (32.0-36.5); MEAN CORPUSCULAR VOLUME 104.1 fl (80.0-96.0); MONO # 0.6 K/mm3 (0.0-0.8); MONO % 4.8 % (0.0-5.0); NEUTROPHILS # 6.3 K/mm3 (1.8-7.7); NEUTROPHILS % 49.4 % (36.0-66.0); PLATELET COUNT, AUTOMATED 413 k/mm3 (150-450); RED CELL DISTRIBUTION WIDTH 15.1 % (11.5-14.5); WHITE BLOOD COUNT 12.8 K/mm3 (4.0-10.0)
[2017-02-18 07:07] LABS: ANION GAP 8 MEQ/L (8-16); BLOOD UREA NITROGEN 26 MG/DL (7-18); CALCIUM LEVEL 8.8 MG/DL (8.8-10.2); CARBON DIOXIDE LEVEL 27 MEQ/L (21-32); CHLORIDE LEVEL 105 MEQ/L (98-107); CREATININE FOR GFR 0.94 MG/DL (0.55-1.02); GLOMERULAR FILTRATION RATE > 60.0 (>32); GLUCOSE, FASTING 90 MG/DL (83-110); MAGNESIUM LEVEL 1.9 MG/DL (1.8-2.4); POTASSIUM SERUM 4.1 MEQ/L (3.5-5.1); SODIUM LEVEL 140 MEQ/L (136-145)
[2017-02-18] MEDS: DULERA INH SCH ×2 (07:30→19:48)
[2017-02-18] MEDS: INCRUSE ELLIPTA (PATIENT'S OWN MED) INH SCH (07:34)
[2017-02-18] MEDS: sulfaSALAzine 500 MG TABEC PO SCH ×2 (08:44→20:47)
[2017-02-18] MEDS: SENOKOT S TAB PO SCH ×2 (08:45→20:39)
[2017-02-18] MEDS: OYSTER SHELL CALCIUM 500 MG TAB PO SCH ×2 (08:45→20:40)
[2017-02-18] MEDS: FUROSEMIDE 20 MG TAB PO SCH (08:45)
[2017-02-18] MEDS: PRIMIDONE 250 MG TAB PO SCH ×3 (08:45→20:40)
[2017-02-18] MEDS: predniSONE 20 MG TAB PO SCH (08:46)
[2017-02-18] MEDS: guaiFENesin ER 600 MG TAB PO SCH ×2 (08:46→20:43)
[2017-02-18] MEDS: SPIRONOLACTONE 25 MG TAB PO SCH (08:46)
[2017-02-18] MEDS: CETIRIZINE (ZyrTEC) 10 MG TAB PO SCH (08:46)
[2017-02-18] MEDS: ENOXAPARIN 40 MG/0.4 ML SYRINGE (J1650) SC SCH (08:47)
[2017-02-18] MEDS: FLUTICASONE PROP 0.05% NASAL SPRAY 16 GM (FLONASE) SCH ×2 (08:47→20:43)
--- NOTE | 2017-02-18 09:04 | IPNPDOC ---
Text Note Date of Service The patient was seen on 02/18/17. NOTE Subjective: Patient seen and examined at bedside. She is very concerned about her knee pain , although she states her pain has improved. She is also concerned about the dosage of her methazolamide. She feels her tremors have worsened. States she a history of DJD, which she describes as 'bone on bone'. She is anxious, and still concerned about her discharge planning. 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 1. Respiratory - patient appears to be slowly improving - most recent CXR = persisting focal atelectasis in right lung - other infiltrates previously noted have resolved - follow as per pulmo - assistance appreciated - heliox treatments discontinued - transitioned to PO prednisone 2. CHF - transitioned to PO lasix 3. Essential tremor - methazolamide 20 mg by mouth twice a day + primidone 4. HTN - aldactone, lasix 5. CAD - aspirin, lipitor 6. RA 7. GALO noncompliant with CPAP 8. Hypothyroidism - synthroid 9. DJD - have increased her Tylenol to 1g q6h as per patient request, states this is her home dosage which manages her pain effectively 9. DVT prophylaxis - Lovenox VS,Fishbone, I+O VS, Fishbone, I+O Laboratory Tests 02/18/17 06:10 Red Blood Count 3.03 L, Mean Corpuscular Volume 104.1 H, Mean Corpuscular Hemoglobin 33.8 H, Mean Corpuscular Hemoglobin Concent 32.5, Red Cell Distribution Width 15.1 H, Neutrophils (%) (Auto) 49.4, Lymphocytes (%) (Auto) 15.3 L, Monocytes (%) (Auto) 4.8, Eosinophils (%) (Auto) 27.7 H, Basophils (%) ( Auto) 0.7, Neutrophils # (Auto) 6.3, Lymphocytes # (Auto) 2.0, Monocytes # (Auto ) 0.6, Eosinophils # (Auto) 3.6 H, Basophils # (Auto) 0.1, Calcium Level 8.8 Vital Signs Date Time Temp Pulse Resp B/P (MAP) Pulse Ox O2 Delivery O2 Flow Rate FiO2 02/18/17 06:00 97.7 97 20 128/72 (90) 97 Room Air 02/17/17 06:00 2.0 I&O- Last 24 Hours up to 6 AM 02/19/17 05:59 Intake Total 180 ml Output Total 0 ml Balance 180 ml CASSANDRA MEDINA MD Feb 18, 2017 09:04
[2017-02-18 14:00] VITALS: BP 112/55
[2017-02-18 15:08] LABS: M003-IGE ASPERGILLUS fumigatus 0.18 kU/L (Class 0/I)
[2017-02-18] MEDS: ACETAMINOPHEN 500 MG TAB PO PRN (20:38)
[2017-02-18] MEDS: ATORVASTATIN 20 MG TAB PO SCH (20:39)
[2017-02-18] MEDS: MONTELUKAST 10 MG TAB PO SCH (20:40)
[2017-02-18] MEDS: ASPIRIN 81 MG ENTERIC TAB PO SCH (20:41)
[2017-02-18] MEDS: VITAMIN D 1,000 INTERNATIONAL UNITS TABLET PO SCH (20:42)
[2017-02-18 22:00] VITALS: BP 133/77
[2017-02-19] MEDS: ACETAMINOPHEN 500 MG TAB PO PRN ×3 (02:38→21:21)
[2017-02-19] MEDS: ALBUTEROL SULFATE 2.5 MG/0.5 ML INH NEB SOLN INH SCH ×5 (03:54→23:13)
[2017-02-19 06:00] VITALS: BP 138/66
[2017-02-19] MEDS ORDERED: KETOROLAC 30 MG/ML VIAL (J1885) IV ONE (06:00)
[2017-02-19] MEDS: LEVOTHYROXINE 100MCG TABLET (0.1MG) PO SCH (06:03)
[2017-02-19 07:49] VITALS: O2SAT 98
[2017-02-19] MEDS: guaiFENesin ER 600 MG TAB PO SCH ×3 (09:00→21:00)
[2017-02-19] MEDS: OYSTER SHELL CALCIUM 500 MG TAB PO SCH ×2 (09:22→21:07)
[2017-02-19] MEDS: predniSONE 20 MG TAB PO SCH (09:27)
[2017-02-19] MEDS: SENOKOT S TAB PO SCH ×2 (09:28→21:08)
[2017-02-19] MEDS: FUROSEMIDE 20 MG TAB PO SCH (09:30)
[2017-02-19] MEDS: PRIMIDONE 250 MG TAB PO SCH ×3 (09:30→21:07)
[2017-02-19] MEDS ORDERED: PERCOCET 5MG/325MG TAB PO PRN (09:30)
[2017-02-19] MEDS: SPIRONOLACTONE 25 MG TAB PO SCH (09:31)
[2017-02-19] MEDS: CETIRIZINE (ZyrTEC) 10 MG TAB PO SCH (09:31)
[2017-02-19] MEDS: FLUTICASONE PROP 0.05% NASAL SPRAY 16 GM (FLONASE) SCH ×2 (09:32→21:08)
[2017-02-19] MEDS: ENOXAPARIN 40 MG/0.4 ML SYRINGE (J1650) SC SCH (09:57)
[2017-02-19] MEDS: sulfaSALAzine 500 MG TABEC PO SCH ×2 (10:27→21:06)
[2017-02-19] MEDS: INCRUSE ELLIPTA (PATIENT'S OWN MED) INH SCH (13:37)
[2017-02-19] MEDS: DULERA INH SCH ×2 (13:37→20:32)
[2017-02-19 14:00] VITALS: BP 122/61
[2017-02-19] MEDS ORDERED: NORCO, ANEXSIA 5/325MG TABLET (HYDROcodone/ACETAMINOPHEN) PO PRN (15:30)
[2017-02-19] MEDS: MONTELUKAST 10 MG TAB PO SCH (21:06)
[2017-02-19] MEDS: ATORVASTATIN 20 MG TAB PO SCH (21:07)
[2017-02-19] MEDS: ASPIRIN 81 MG ENTERIC TAB PO SCH (21:07)
[2017-02-19] MEDS: VITAMIN D 1,000 INTERNATIONAL UNITS TABLET PO SCH (21:08)
[2017-02-20] MEDS: ALBUTEROL SULFATE 2.5 MG/0.5 ML INH NEB SOLN INH SCH ×6 (03:29→23:03)
[2017-02-20 06:00] VITALS: BP 141/60
[2017-02-20] MEDS: LEVOTHYROXINE 100MCG TABLET (0.1MG) PO SCH (06:12)
[2017-02-20] MEDS: INCRUSE ELLIPTA (PATIENT'S OWN MED) INH SCH (08:08)
[2017-02-20] MEDS: DULERA INH SCH ×2 (08:08→19:30)
[2017-02-20] MEDS: guaiFENesin ER 600 MG TAB PO SCH ×3 (09:00→20:50)
[2017-02-20] MEDS: ENOXAPARIN 40 MG/0.4 ML SYRINGE (J1650) SC SCH (09:01)
[2017-02-20] MEDS: FUROSEMIDE 20 MG TAB PO SCH (09:01)
[2017-02-20] MEDS: SENOKOT S TAB PO SCH ×2 (09:02→20:45)
[2017-02-20] MEDS: sulfaSALAzine 500 MG TABEC PO SCH ×2 (09:02→20:45)
[2017-02-20] MEDS: predniSONE 20 MG TAB PO SCH (09:02)
[2017-02-20] MEDS: OYSTER SHELL CALCIUM 500 MG TAB PO SCH ×2 (09:02→20:46)
[2017-02-20] MEDS: PRIMIDONE 250 MG TAB PO SCH ×3 (09:02→20:47)
[2017-02-20] MEDS: SPIRONOLACTONE 25 MG TAB PO SCH (09:03)
[2017-02-20] MEDS: CETIRIZINE (ZyrTEC) 10 MG TAB PO SCH (09:03)
[2017-02-20] MEDS: FLUTICASONE PROP 0.05% NASAL SPRAY 16 GM (FLONASE) SCH ×2 (09:03→20:48)
--- NOTE | 2017-02-20 15:26 | REP ---
RIGHT KNEE, TWO VIEWS: AP and lateral views of the right knee are performed. There is no fracture or dislocation. There is moderate medial joint space narrowing with subchondral sclerosis. There is moderate diffuse spurring. There appears to be a small joint effusion. IMPRESSION: Degenerative change without evidence of fracture or dislocation. Small joint effusion. Signed by Evgeny Mccracken MD 02/20/2017 05:23 P
[2017-02-20 15:30] VITALS: BP 136/95
--- NOTE | 2017-02-20 17:09 | IPN ---
DATE: 02/20/2017 Ms. Ball is complaining of continuing right knee pain today. It was better yesterday. She is concerned that she is going to [place] and does not have an orthopedic provider there and would like to be seen by an orthopedic provider here prior to her discharge. Possible discharge tomorrow. Temperature 98, pulse 94, respiratory rate 15, blood pressure 141/60, 95% on room air. Intake and output notable for a positive fluid balance of 1560. No bowel movements yesterday. Body mass index 47.1. She is awake, appropriately interactive. Breathing is symmetrical. Speaking in complete sentences. No accessory muscle use. She is intermittently coughing. Heart is distant sounding. Normal S1, S2. Abdomen soft, doughy, nontender. There is no tenderness to her right knee. There is no obvious effusion or warmth. No current labs. Knee x-ray is pending. 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 PLAN: 1. Respiratory. Patient is improved from initial presentation. Continued on oral prednisone. Has been followed by pulmonary. 2. Patient has congestive heart failure. Is on oral Lasix, which she is only taking once daily. Lower extremity edema is better at time of presentation. 3. Patient is essential tremor. Is off her propranolol and continued on methazolamide and primidone. 4. Patient has hypertension. 5. Patient has coronary artery disease. 6. Patient has arthritis in the right knee. I have asked orthopedic surgeon to see her in consultation. 7. Patient has obstructive sleep apnea (GALO), noncompliant with continuous positive airway pressure (CPAP). 8. Patient has hypothyroidism. 9. Plan for possible discharge tomorrow.
--- NOTE | 2017-02-20 18:45 | CR ---
DATE OF CONSULTATION: 02/20/2017 INDICATION: Right knee pain. 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 She has had cortisone shots in the past about three years ago and then in early January of 2017, had another shot by one of my partners and it gave excellent pain relief for about three days. She says that following that injection her pain is worse than it was before the shot. She basically wants to know why it is worse now. She has never had any viscosupplementation or brace. She tells me that primary care team has recommended stopping oral nonsteroidal antiinflammatory drugs (NSAIDs), and when she used Voltaren Gel in the past, it did not work well. For the patient's past medical history, past surgical history, medications, allergies, social history, and review of systems, please see the admitting history and physical which I reviewed. PHYSICAL EXAMINATION: Reveals an elderly female in no distress. She is alert and oriented times three. NEUROLOGIC: Appropriate mood and affect. CARDIOVASCULAR: 1+ posterior tibial (PT) pulse and the foot is warm and well-perfused. PULMONARY: Regular, nonlabored breathing. SKIN: In the right knee is intact. MUSCULOSKELETAL: The patient has full right knee extension and flexion to 95 degrees. Mild diffuse patellar tenderness. Maximal tenderness is along the medial joint line. Grossly stable to varus and valgus stress, although there is some guarding. Calf is soft. She wiggles her toes. RADIOLOGY: AP, lateral nonweightbearing right knee were obtained and available for my review. There is minimal joint effusion. There are nonweightbearing views. There is at least moderate to severe medial greater than lateral compartment osteoarthritis with joint space narrowing and osteophyte formation. No fractures. ASSESSMENT AND PLAN: Bonnie is an 81-year-old female with a right knee arthritis exacerbation. There are no concerning signs for infection. No history to suggest fracture. I was honest with her. I am not sure why her pain is worse now than prior to the injection. She may have had a great response and then expectations were higher for lasting pain relief and that has not been the case. I do not see any role to obtaining a CAT scan or MRI. In the very short-term, I think that it is reasonable to start the Voltaren Gel back. Voltaren Gel 1% apply to the right knee four times per day as needed and tramadol 50 mg one tablet by mouth every eight hours as needed for pain. Use of tramadol for arthritis pain is supported by the [employer]. She denies seizure history. Once she goes to [place], I think she should get plugged in the an orthopedic group there to see if her insurance will cover Synvisc or any of those other hyaluronic acid injections and to get her in for some physical therapy with aquatic therapy. Otherwise, she can followup with Dr. Jose Alfredo Alatorre when she gets back to the [facility].
[2017-02-20] MEDS: VITAMIN D 1,000 INTERNATIONAL UNITS TABLET PO SCH (20:47)
[2017-02-20] MEDS: ASPIRIN 81 MG ENTERIC TAB PO SCH (20:47)
[2017-02-20] MEDS: ATORVASTATIN 20 MG TAB PO SCH (20:47)
[2017-02-20] MEDS: MONTELUKAST 10 MG TAB PO SCH (20:48)
[2017-02-20 22:00] VITALS: BP 112/58
[2017-02-21] MEDS: ALBUTEROL SULFATE 2.5 MG/0.5 ML INH NEB SOLN INH SCH ×2 (03:44→11:28)
[2017-02-21] MEDS: ACETAMINOPHEN 500 MG TAB PO PRN (03:47)
[2017-02-21] MEDS: LEVOTHYROXINE 100MCG TABLET (0.1MG) PO SCH (05:28)
[2017-02-21 06:00] VITALS: BP 122/64
[2017-02-21] MEDS: INCRUSE ELLIPTA (PATIENT'S OWN MED) INH SCH (07:29)
[2017-02-21] MEDS: DULERA INH SCH (07:29)
[2017-02-21] MEDS ORDERED: SENN1TAB2 PO (08:24)
[2017-02-21] MEDS ORDERED: MONT10TA2 PO (08:24)
[2017-02-21] MEDS ORDERED: PRED10TA2 PO (08:24)
[2017-02-21] MEDS ORDERED: CETI10TA PO (08:24)
[2017-02-21] MEDS ORDERED: NORCOTAB PO (08:24)
[2017-02-21] MEDS ORDERED: METH25TA3 PO (08:24)
[2017-02-21] MEDS ORDERED: VOLT1GEL15 TD (08:28)
[2017-02-21] MEDS: guaiFENesin ER 600 MG TAB PO SCH (09:00)
[2017-02-21] MEDS: FUROSEMIDE 20 MG TAB PO SCH (09:00)
[2017-02-21] MEDS: ENOXAPARIN 40 MG/0.4 ML SYRINGE (J1650) SC SCH (09:58)
[2017-02-21] MEDS: SENOKOT S TAB PO SCH (09:58)
[2017-02-21] MEDS: OYSTER SHELL CALCIUM 500 MG TAB PO SCH (09:59)
[2017-02-21] MEDS: CETIRIZINE (ZyrTEC) 10 MG TAB PO SCH (09:59)
[2017-02-21] MEDS: predniSONE 20 MG TAB PO SCH (10:00)
[2017-02-21] MEDS: FLUTICASONE PROP 0.05% NASAL SPRAY 16 GM (FLONASE) SCH (10:00)
[2017-02-21] MEDS: PRIMIDONE 250 MG TAB PO SCH (10:00)
[2017-02-21] MEDS: SPIRONOLACTONE 25 MG TAB PO SCH (10:02)
[2017-02-21] MEDS: sulfaSALAzine 500 MG TABEC PO SCH (11:20)
[2017-02-21] MEDS ORDERED: INFLUENZA VIRUS VACCINE HIGH DOSE 0.5 ML SYRINGE (90662) IM ONE (13:30)
--- NOTE | 2017-02-22 03:46 | DSES ---
DATE OF ADMISSION: 02/09/2017 DATE OF DISCHARGE: 02/21/2017 Specialists involved in her care included Dr. Menjivar from orthopedic surgery, Dr. Degroot and Dr. Lee from pulmonary critical care. No complications of her stay. No procedures performed during her stay. DISCHARGE DIAGNOSES: 1. Respiratory distress. 2. Eosinophilia. 3. Right middle lobe syndrome. 4. Bronchiectasis. 5. Severe asthma. 6. Congestive heart failure. 7. Essential tremor. 8. Hypertension. 9. Coronary artery disease. 10. Rheumatoid arthritis. 11. Obstructive sleep apnea (GALO) noncompliant with continuous positive airway pressure (CPAP). 12. Hypothyroidism. 13. Degenerative joint disease. 14. Right knee arthritis. 15. Morbid obesity The following is a summary of her hospitalization: This is an 81-year-old who presented with shortness of breath, was thought to have an asthma exacerbation, was admitted to the hospitalist service, was treated empirically. CT scan of the chest showed suspected right middle lobe syndrome. Was seen in consultation by Dr. Degroot and she had multiple adjustments to her respiratory therapy. She did receive an offer for a bronchoscopy which she declined. She improved slowly during her stay. She was weaned from oxygen which she initially required during the daytime. At the time of discharge, she does not qualify for oxygen during the daytime. She also complained of right knee pain, was seen in consultation by Dr. Menjivar , who suggested possible Synvisc injection as an outpatient. She has relatively severe longstanding essential tremor. She had been on propranolol, which was discontinued due to her severe asthma and she was started on methazolamide twice daily, as well as primidone. At the time of discharge, she is on a steroid taper. Again, as previously mentioned, she does not qualify for home oxygen during the daytime, but takes comfort from home oxygen and is planning to pay for home oxygen at home. She plans to go live with her daughter in [place] and pursue the rest of care there. Temperature 98.2, pulse 96, respiratory rate 18, blood pressure 122/64, 95% on 2 liters nasal cannula. Intake and output notable for a positive fluid balance of 1080. She is awake, appropriately interactive. Breathing is symmetrical, diminished throughout. I:E ration is 1:3. Speaking in complete sentences. No accessory muscle use. Heart is regular rate and rhythm, distant sounding. Not tachycardic on my exam, but she does get tachycardia with movement. White cell count 12.8, hemoglobin 10.2, platelets of 413. BUN 26, creatinine 0.94. DISCHARGE INSTRUCTIONS: Include the following: Followup with Dr. Degroot as an outpatient. Followup with new primary medical doctor (PMD) in [place]. Continue with: - [place] as needed for pain, number 24 - cetirizine 10 mg by mouth daily - methazolamide 25 mg by mouth twice daily - Singulair 10 mg by mouth daily at bedtime - prednisone taper starting at 20 mg daily for 4 days, then 10 mg daily for 4 days and then one 10 mg tablet every other day for four doses - Senokot-S two tablets by mouth twice daily - Voltaren gel as needed for pain - continue albuterol twice daily - aspirin 81 mg by mouth daily - atorvastatin 20 mg by mouth every evening - calcium supplement - Dulera inhaled twice daily - Flonase two sprays nasally twice daily - Lasix 60 mg by mouth daily - guaifenesin by mouth twice daily - Synthroid 100 mcg by mouth daily - flax seed oil is deemed clinically necessary - primidone 250 mg by mouth three times a day - spironolactone 25 mg by mouth daily - sulfasalazine 1000 mg by mouth twice daily - vitamin D supplement She is discontinuing her ibuprofen. Discontinue propranolol. I recommended followup at movement disorder clinic in [place], orthopedic surgery in [place] and she has been referred to an software engineer developer in [place] as well. EBONI
[2017-03-02 10:14] LABS: D001-IgE D pteronyssinus 0.31 kU/L (Class 0/I); E001-IgE Cat Epith/Dander 0.14 kU/L (Class 0/I); E005-IgE Dog Dander 0.24 kU/L (Class 0/I); G002-IgE Bermuda Grass 0.22 kU/L (Class 0/I); G008-IgE Kentucky Bluegrass 0.19 kU/L (Class 0/I); M001-IgE Penicillium chrysogen 0.17 kU/L (Class 0/I); M002 IgE Cladosporium herbaru 0.19 kU/L (Class 0/I); M003 IgE Aspergillus fumigatu 0.21 kU/L (Class 0/I); M006-IgE Alternaria alternata 0.18 kU/L (Class 0/I); T001-IgE Maple/Box Elder 0.19 kU/L (Class 0/I); T003-IgE Common Silver Birch 0.17 kU/L (Class 0/I); T007-IgE Oak, White 0.21 kU/L (Class 0/I); T008-IgE Elm, American 0.27 kU/L (Class 0/I); T015-IgE Ash, White 0.16 kU/L (Class 0/I); T041-IgE Hickory, White 0.15 kU/L (Class 0/I); W001-IgE Ragweed, Short < 0.10 kU/L (Class 0); W009-IgE Plantain, English 0.23 kU/L (Class 0/I); W014-IgE Pigweed, Rough 0.17 kU/L (Class 0/I); W018-IgE Sheep Sorrel 0.19 kU/L (Class 0/I)
== END 2017-02-21 14:05 | disposition home or self-care (01) | DRG 191 ==
LOC: M ED 16:56 → M ED INP 23:27 → M MS5PR 02-09 00:56 → OBSVTOIN 02-09 16:51
PROVIDERS: ADMIT Internal Medicine; ATTEND Internal Medicine
DX: J47.9 Bronchiectasis, uncomplicated (principal); J98.19 Other pulmonary collapse; I50.32 Chronic diastolic (congestive) heart failure; J98.11 Atelectasis; J45.909 Unspecified asthma, uncomplicated; E03.9 Hypothyroidism, unspecified; G47.33 Obstructive sleep apnea (adult) (pediatric); I11.9 Hypertensive heart disease without heart failure; I25.10 Atherosclerotic heart disease of native coronary artery without angina pectoris; M06.9 Rheumatoid arthritis, unspecified; M17.11 Unilateral primary osteoarthritis, right knee; G25.0 Essential tremor; Z79.899 Other long term (current) drug therapy; Z79.82 Long term (current) use of aspirin; Z88.8 Allergy status to other drugs, medicaments and biological substances; H40.9 Unspecified glaucoma; Z88.5 Allergy status to narcotic agent; Z95.2 Presence of prosthetic heart valve; E78.5 Hyperlipidemia, unspecified; R06.00 Dyspnea, unspecified; R91.1 Solitary pulmonary nodule; Z91.19 Patient's noncompliance with other medical treatment and regimen

== ENCOUNTER → 2017-04-09 | Outpatient (REF) | payer OTHER, MEDICARE ==
[~2017-04-09] MED LIST changes: +CETI10TA PO; +FLON1SPR; +FURO40TA2 PO; +IBUPOTC PO; +METH25TA3 PO; +MONT10TA2 PO; +MUCI600T37 PO; +NORCOTAB PO; +PROP40TA PO; +SENN1TAB2 PO; +VOLT1GEL15 TD
[2017-04-09 15:14] LABS: BLOOD UREA NITROGEN 23 MG/DL (7-18); CREATININE FOR GFR 0.94 MG/DL (0.55-1.02); GLOMERULAR FILTRATION RATE > 60.0 (>32)
== END ==
LOC: M LABDRAW1 09:36
PROVIDERS: ATTEND Physical Medicine & Rehabilitation
DX: Z01.812 Encounter for preprocedural laboratory examination (principal)

== ENCOUNTER → 2017-04-09 | Outpatient (REF) | payer MEDICARE ==
[2017-04-09 10:53] LABS: MEAN CORPUSCULAR HGB CONC 30.9 g/dl (32.0-36.5); MEAN CORPUSCULAR VOLUME 103.9 fl (80.0-96.0); PLATELET COUNT, AUTOMATED 398 10^3/uL (150-450); RED CELL DISTRIBUTION WIDTH 14.4 % (11.5-14.5); WHITE BLOOD COUNT 7.1 10^3/uL (4.0-10.0)
[2017-04-09 11:29] LABS: ALBUMIN 3.3 GM/DL (3.2-5.2); ALKALINE PHOSPHATASE 85 U/L (45-117); ALT/SGPT 14 U/L (12-78); ANION GAP 7 MEQ/L (8-16); AST/SGOT 31 U/L (7-37); BILIRUBIN,TOTAL 0.3 MG/DL (0.2-1.0); BLOOD UREA NITROGEN 23 MG/DL (7-18); CALCIUM LEVEL 8.9 MG/DL (8.8-10.2); CARBON DIOXIDE LEVEL 28 MEQ/L (21-32); CHLORIDE LEVEL 103 MEQ/L (98-107); CHOLESTEROL LEVEL 220 MG/DL (<200); CREATININE FOR GFR 0.94 MG/DL (0.55-1.02); GLOMERULAR FILTRATION RATE > 60.0 (>32); GLUCOSE, FASTING 92 MG/DL (83-110); MAGNESIUM LEVEL 2.2 MG/DL (1.8-2.4); POTASSIUM SERUM 4.2 MEQ/L (3.5-5.1); SODIUM LEVEL 138 MEQ/L (136-145); TRIGLYCERIDES LEVEL 198 MG/DL (<150)
== END ==
LOC: M LABDRAW1 09:34
PROVIDERS: ATTEND Internal Medicine
DX: E78.00 Pure hypercholesterolemia, unspecified (principal); G47.30 Sleep apnea, unspecified; I10 Essential (primary) hypertension

== ENCOUNTER → 2017-09-14 | Outpatient (REF) | payer MEDICARE ==
[2017-09-14 11:01] LABS: HEMATOCRIT 36.5 % (36.0-47.0); HEMOGLOBIN 11.4 g/dl (12.0-15.5); MEAN CORPUSCULAR HEMOGLOBIN 31.8 pg (27.0-33.0); MEAN CORPUSCULAR HGB CONC 31.2 g/dl (32.0-36.5); MEAN CORPUSCULAR VOLUME 101.7 fl (80.0-96.0); PLATELET COUNT, AUTOMATED 337 10^3/uL (150-450); RED BLOOD COUNT 3.59 10^6/uL (4.00-5.40); WHITE BLOOD COUNT 7.4 10^3/uL (4.0-10.0)
[2017-09-14 11:32] LABS: ALBUMIN 3.3 GM/DL (3.2-5.2); ALBUMIN/GLOBULIN RATIO 0.77 (1.00-1.93); ALKALINE PHOSPHATASE 94 U/L (45-117); ALT/SGPT 10 U/L (12-78); ANION GAP 7 MEQ/L (8-16); AST/SGOT 27 U/L (7-37); BILIRUBIN,TOTAL 0.2 MG/DL (0.2-1.0); BLOOD UREA NITROGEN 23 MG/DL (7-18); CALCIUM LEVEL 9.2 MG/DL (8.8-10.2); CARBON DIOXIDE LEVEL 28 MEQ/L (21-32); CHLORIDE LEVEL 106 MEQ/L (98-107); CHOLESTEROL LEVEL 215 MG/DL (<200); CHOLESTEROL RISK RATIO 2.388 (<5); CREATININE FOR GFR 0.98 MG/DL (0.55-1.30); GLOMERULAR FILTRATION RATE 57.7 (>32); GLUCOSE, FASTING 97 MG/DL (70-100); HDL CHOLESTEROL 90 MG/DL (>40); MAGNESIUM LEVEL 2.2 MG/DL (1.8-2.4); NON-HDL-C 125 MG/DL; POTASSIUM SERUM 4.5 MEQ/L (3.5-5.1); SODIUM LEVEL 141 MEQ/L (136-145); TOTAL PROTEIN 7.6 GM/DL (6.4-8.2); TRIGLYCERIDES LEVEL 180 MG/DL (<150)
== END ==
LOC: M LABDRAW1 09:00
DX: D64.9 Anemia, unspecified (principal); I10 Essential (primary) hypertension; E78.00 Pure hypercholesterolemia, unspecified
CPT/HCPCS: 83735

== ENCOUNTER → 2017-09-25 | Outpatient (CLI) | payer MEDICARE ==
[2017-09-25 18:29] LABS: IMMUNOGLOBULIN E 72.7 IU/ML (<100)
[2017-10-01 00:08] LABS: D001-IgE D pteronyssinus <0.10 kU/L (Class 0); E001-IgE Cat Epith/Dander < 0.10 kU/L (Class 0); E005-IgE Dog Dander < 0.10 kU/L (Class 0); G002-IgE Bermuda Grass < 0.10 kU/L (Class 0); G008-IgE Kentucky Bluegrass < 0.10 kU/L (Class 0); M001-IgE Penicillium chrysogen < 0.10 kU/L (Class 0); M002 IgE Cladosporium herbaru < 0.10 kU/L (Class 0); M003 IgE Aspergillus fumigatu < 0.10 kU/L (Class 0); M006-IgE Alternaria alternata < 0.10 kU/L (Class 0); T001-IgE Maple/Box Elder < 0.10 kU/L (Class 0); T003-IgE Common Silver Birch < 0.10 kU/L (Class 0); T006-IgE Cedar, Mountain < 0.10 kU/L (Class 0); T007-IgE Oak, White < 0.10 kU/L (Class 0); T008-IgE Elm, American < 0.10 kU/L (Class 0); T015-IgE Ash, White < 0.10 kU/L (Class 0); T041-IgE Hickory, White < 0.10 kU/L (Class 0); T070-IgE White Mulberry < 0.10 kU/L (Class 0); W001-IgE Ragweed, Short < 0.10 kU/L (Class 0); W009-IgE Plantain, English < 0.10 kU/L (Class 0); W014-IgE Pigweed, Rough < 0.10 kU/L (Class 0); W018-IgE Sheep Sorrel < 0.10 kU/L (Class 0)
== END ==
LOC: M SMT 13:54
DX: J45.41 Moderate persistent asthma with (acute) exacerbation (principal)
CPT/HCPCS: 82785

== ENCOUNTER → 2017-09-25 | Outpatient (CLI) | payer MEDICARE | LOC: M SMT 14:00 | DX: Z51.81 Encounter for therapeutic drug level monitoring (principal); Z79.891 Long term (current) use of opiate analgesic | CPT/HCPCS: 80307 ==

== ENCOUNTER → 2018-01-07 | Outpatient (REF) | payer MEDICARE ==
[2018-01-07 18:58] LABS: BASO % 0.2 % (0.0-1.0); EOS # 0.1 10^3/uL (0.0-0.50); EOS % 1.7 % (0.0-3.0); HEMATOCRIT 35.1 % (36.0-47.0); HEMOGLOBIN 11.2 g/dl (12.0-15.5); IMMATURE GRANULOCYTE % 0.9 % (0-3.0); LYMPH # 1.3 10^3/uL (1.5-4.5); LYMPH % 16.2 % (24.0-44.0); MEAN CORPUSCULAR HEMOGLOBIN 33.3 pg (27.0-33.0); MEAN CORPUSCULAR HGB CONC 31.9 g/dl (32.0-36.5); MEAN CORPUSCULAR VOLUME 104.5 fl (80.0-96.0); MONO # 0.5 10^3/uL (0.0-0.8); MONO % 6.3 % (0.0-5.0); NEUTROPHILS # 6.1 10^3/uL (1.8-7.7); NEUTROPHILS % 74.7 % (36.0-66.0); PLATELET COUNT, AUTOMATED 364 10^3/uL (150-450); RED BLOOD COUNT 3.36 10^6/uL (4.00-5.40); RED CELL DISTRIBUTION WIDTH 14.9 % (11.5-14.5); WHITE BLOOD COUNT 8.1 10^3/uL (4.0-10.0)
[2018-01-07 19:11] LABS: D-DIMER QUANT 1060.2 ng/ml (<500)
[2018-01-07 19:18] LABS: NT-PRO BNP 156 PG/ML (<450)
== END ==
LOC: M LAB REF 18:04
DX: J45.40 Moderate persistent asthma, uncomplicated (principal)

== ENCOUNTER 2018-01-08 11:13 | Inpatient (IN) | payer MEDICARE ==
[2018-01-08 11:49] LABS: BASO % 0.3 % (0.0-1.0); EOS # 0.2 10^3/uL (0.0-0.50); EOS % 1.7 % (0.0-3.0); HEMATOCRIT 34.8 % (36.0-47.0); HEMOGLOBIN 10.9 g/dl (12.0-15.5); IMMATURE GRANULOCYTE % 0.5 % (0-3.0); LYMPH % 11.6 % (24.0-44.0); MEAN CORPUSCULAR HEMOGLOBIN 32.6 pg (27.0-33.0); MEAN CORPUSCULAR HGB CONC 31.3 g/dl (32.0-36.5); MEAN CORPUSCULAR VOLUME 104.2 fl (80.0-96.0); MONO # 0.6 10^3/uL (0.0-0.8); MONO % 6.6 % (0.0-5.0); NEUTROPHILS % 79.3 % (36.0-66.0); PLATELET COUNT, AUTOMATED 323 10^3/uL (150-450); RED BLOOD COUNT 3.34 10^6/uL (4.00-5.40); RED CELL DISTRIBUTION WIDTH 14.9 % (11.5-14.5); WHITE BLOOD COUNT 8.8 10^3/uL (4.0-10.0)
[2018-01-08 11:52] LABS: VENOUS BASE EXCESS 0.5 (-2.0-2.0); VENOUS O2 SATURATION 71.7 % (60.0-80.0); VENOUS PARTIAL PRESSURE CO2 51.6 mmHg (38.0-50.0); VENOUS PH 7.336 UNITS (7.330-7.430); VENOUS STANDARD HCO3 24.4 MEQ/L
[2018-01-08 12:09] LABS: INR 1.05; PROTHROMBIN TIME 13.8 SECONDS (12.1-14.4)
[2018-01-08] MEDS: IPRATROPIUM 0.5MG/ALBUTEROL 2.5MG INH SOL UD 3ML (DUONEB)(J7620) NEB ×5 (12:12→20:33)
[2018-01-08 12:13] LABS: LACTIC ACID SEPSIS PROTOCOL 1.8 MMOL/L (0.4-2.0)
[2018-01-08 12:13] LABS: ALBUMIN 3.2 GM/DL (3.2-5.2); ALBUMIN/GLOBULIN RATIO 0.73 (1.00-1.93); ALKALINE PHOSPHATASE 93 U/L (45-117); ALT/SGPT 14 U/L (12-78); ANION GAP 7 MEQ/L (8-16); AST/SGOT 20 U/L (7-37); BILIRUBIN,DIRECT 0.1 MG/DL (0.0-0.2); BILIRUBIN,TOTAL 0.3 MG/DL (0.2-1.0); BLOOD UREA NITROGEN 19 MG/DL (7-18); CALCIUM LEVEL 8.9 MG/DL (8.8-10.2); CARBON DIOXIDE LEVEL 31 MEQ/L (21-32); CHLORIDE LEVEL 103 MEQ/L (98-107); CPK CREATINE PHOSPHOKINASE 108 U/L (26-192); CREATININE FOR GFR 0.89 MG/DL (0.55-1.30); GLOMERULAR FILTRATION RATE > 60.0 (>32); GLUCOSE, FASTING 106 MG/DL (70-100); SODIUM LEVEL 141 MEQ/L (136-145); TOTAL PROTEIN 7.6 GM/DL (6.4-8.2); TROPONIN I < 0.02 NG/ML (< 0.10)
[2018-01-08 12:19] LABS: CK-MB VALUE MASS 4.5 NG/ML (<3.6); MB/CK RELATIVE INDEX 4.16 (< OR =4)
[2018-01-08] MEDS: methylPREDNISolone INJ 125 MG/2 ML VIAL (J2930) IV (12:33)
[2018-01-08] MEDS: diphenhydrAMINE INJ 50MG/ML VIAL (J1200) IV (12:33)
[2018-01-08] MEDS ORDERED: ISOVUE-370 76% 100ML VIAL (Q9967) As Ordered (13:03)
[2018-01-08 14:38] LABS: VENOUS TOTAL CO2 28.5 MEQ/L (24.0-28.0)
[2018-01-08] MEDS ORDERED: ACETAMINOPHEN TAB 650MG DOSE (2X325MG) PO (15:30)
[2018-01-08] MEDS ORDERED: ONDANSETRON 4 MG TAB (S0181) PO (15:30)
[2018-01-08] MEDS ORDERED: methylPREDNISolone INJ 125 MG/2 ML VIAL (J2930) IV (16:00)
[2018-01-08] MEDS ORDERED: IPRATROPIUM 0.5MG/ALBUTEROL 2.5MG INH SOL UD 3ML (DUONEB)(J7620) NEB (18:15)
[2018-01-08] MEDS: TORSEMIDE 20 MG TAB PO (19:35)
[2018-01-08] MEDS: FUROSEMIDE 100 MG/10 ML VIAL (J1940) IV (19:35)
[2018-01-08] MEDS: SYMBICORT 160/4.5MCG INHALER 6GM INH (20:00)
[2018-01-08] MEDS: BUDESONIDE 0.5 MG/2 ML INHALATION SUSPENSION INH (20:33)
[2018-01-08] MEDS: sulfaSALAzine 500 MG TABEC PO (21:28)
[2018-01-08] MEDS: PRIMIDONE 250 MG TAB PO (21:28)
[2018-01-08] MEDS: OYSTER SHELL CALCIUM 500 MG TAB PO (21:28)
[2018-01-08] MEDS: AZITHROMYCIN INJ 500 MG, VIAL MATE ADAPTER 1 EACH in D5W 250 ML IV (21:28)
[2018-01-08] MEDS: ATORVASTATIN 20 MG TAB PO (21:29)
[2018-01-08] MEDS: HEPARIN SOD (PORCINE) 5000 UNITS/ML VIAL SC (21:33)
[2018-01-09] MEDS: HEPARIN SOD (PORCINE) 5000 UNITS/ML VIAL SC ×3 (06:02→21:12)
[2018-01-09] MEDS: LEVOTHYROXINE 100MCG TABLET (0.1MG) PO (06:02)
[2018-01-09 06:14] LABS: BASO % 0.2 % (0.0-1.0); EOS # 0.1 10^3/uL (0.0-0.50); EOS % 0.7 % (0.0-3.0); HEMATOCRIT 31.7 % (36.0-47.0); HEMOGLOBIN 10.1 g/dl (12.0-15.5); IMMATURE GRANULOCYTE % 0.7 % (0-3.0); LYMPH # 1.5 10^3/uL (1.5-4.5); LYMPH % 16.2 % (24.0-44.0); MEAN CORPUSCULAR HEMOGLOBIN 32.2 pg (27.0-33.0); MEAN CORPUSCULAR HGB CONC 31.9 g/dl (32.0-36.5); MONO # 0.7 10^3/uL (0.0-0.8); MONO % 7.3 % (0.0-5.0); NEUTROPHILS # 7.1 10^3/uL (1.8-7.7); NEUTROPHILS % 74.9 % (36.0-66.0); PLATELET COUNT, AUTOMATED 302 10^3/uL (150-450); RED BLOOD COUNT 3.14 10^6/uL (4.00-5.40); RED CELL DISTRIBUTION WIDTH 14.8 % (11.5-14.5); WHITE BLOOD COUNT 9.5 10^3/uL (4.0-10.0)
[2018-01-09 06:31] LABS: ESTIMATED AVERAGE GLUCOSE 105 MG/DL (60-110); HEMOGLOBIN A1c 5.3 %
[2018-01-09 06:54] LABS: ALBUMIN/GLOBULIN RATIO 0.63 (1.00-1.93); ALKALINE PHOSPHATASE 81 U/L (45-117); ALT/SGPT 13 U/L (12-78); ANION GAP 7 MEQ/L (8-16); AST/SGOT 18 U/L (7-37); BILIRUBIN,TOTAL 0.3 MG/DL (0.2-1.0); BLOOD UREA NITROGEN 22 MG/DL (7-18); CARBON DIOXIDE LEVEL 33 MEQ/L (21-32); CHLORIDE LEVEL 99 MEQ/L (98-107); CREATININE FOR GFR 1.02 MG/DL (0.55-1.30); GLOMERULAR FILTRATION RATE 55.1 (>32); GLUCOSE, FASTING 97 MG/DL (70-100); POTASSIUM SERUM 3.3 MEQ/L (3.5-5.1); SODIUM LEVEL 139 MEQ/L (136-145); TOTAL PROTEIN 7.8 GM/DL (6.4-8.2)
[2018-01-09] MEDS: BUDESONIDE 0.5 MG/2 ML INHALATION SUSPENSION INH ×2 (07:51→21:16)
[2018-01-09] MEDS: SYMBICORT 160/4.5MCG INHALER 6GM INH ×2 (07:52→21:17)
[2018-01-09] MEDS: IPRATROPIUM 0.5MG/ALBUTEROL 2.5MG INH SOL UD 3ML (DUONEB)(J7620) NEB ×4 (07:52→20:00)
[2018-01-09] MEDS: PRIMIDONE 250 MG TAB PO ×3 (08:37→21:11)
[2018-01-09] MEDS: POTASSIUM CHLORIDE 10 MEQ SR TABLET PO (08:37)
[2018-01-09] MEDS: sulfaSALAzine 500 MG TABEC PO ×2 (08:37→21:11)
[2018-01-09] MEDS: METOPROLOL SUCC (TopROL XL) 50MG **XL** TAB PO (08:38)
[2018-01-09] MEDS: TORSEMIDE 20 MG TAB PO ×2 (08:38→17:18)
[2018-01-09] MEDS: OYSTER SHELL CALCIUM 500 MG TAB PO ×2 (08:38→21:12)
[2018-01-09] MEDS: FOLIC ACID 1 MG TAB PO (08:39)
[2018-01-09] MEDS: LATANOPROST 0.005% OPHTH SOLN 2.5 ML OU (08:39)
[2018-01-09] MEDS: SPIRONOLACTONE 25 MG TAB PO (08:39)
[2018-01-09] MEDS ORDERED: METOPROLOL SUCC (TopROL XL) 50MG **XL** TAB PO (09:00)
[2018-01-09] MEDS ORDERED: SLF 3 ML SYR IV (12:45)
[2018-01-09 14:14] LABS: NT-PRO BNP 241 PG/ML (<450)
[2018-01-09] MEDS: FUROSEMIDE 40 MG/4 ML VIAL (J1940) IV (14:53)
[2018-01-09] MEDS: AZITHROMYCIN 250 MG TAB PO (14:53)
[2018-01-09] MEDS: SLF 3 ML SYR IV ×2 (14:54→21:12)
[2018-01-09] MEDS: VITAMIN D 1,000 INTERNATIONAL UNITS TABLET PO (21:11)
[2018-01-09] MEDS: ATORVASTATIN 20 MG TAB PO (21:11)
[2018-01-09] MEDS: BISACODYL 10 MG SUPP PR (23:35)
[2018-01-10] MEDS: SENNA 8.6 MG TAB (SENOKOT) PO (00:36)
[2018-01-10] MEDS: HEPARIN SOD (PORCINE) 5000 UNITS/ML VIAL SC ×3 (05:09→20:34)
[2018-01-10] MEDS: SLF 3 ML SYR IV ×3 (05:10→20:35)
[2018-01-10] MEDS: LEVOTHYROXINE 100MCG TABLET (0.1MG) PO (05:10)
[2018-01-10] MEDS: BUDESONIDE 0.5 MG/2 ML INHALATION SUSPENSION INH ×2 (08:05→20:49)
[2018-01-10] MEDS: IPRATROPIUM 0.5MG/ALBUTEROL 2.5MG INH SOL UD 3ML (DUONEB)(J7620) NEB ×4 (08:05→20:49)
[2018-01-10] MEDS: SYMBICORT 160/4.5MCG INHALER 6GM INH ×2 (08:05→20:49)
[2018-01-10] MEDS ORDERED: PILL CRUSHER/CUTTER 1 EACH XX (08:45)
[2018-01-10] MEDS ORDERED: SENNA 8.6 MG TAB (SENOKOT) PO (09:00)
[2018-01-10 09:11] LABS: HEMATOCRIT 34.4 % (36.0-47.0); HEMOGLOBIN 10.7 g/dl (12.0-15.5); MEAN CORPUSCULAR HEMOGLOBIN 31.8 pg (27.0-33.0); MEAN CORPUSCULAR HGB CONC 31.1 g/dl (32.0-36.5); MEAN CORPUSCULAR VOLUME 102.1 fl (80.0-96.0); PLATELET COUNT, AUTOMATED 333 10^3/uL (150-450); RED BLOOD COUNT 3.37 10^6/uL (4.00-5.40); RED CELL DISTRIBUTION WIDTH 14.9 % (11.5-14.5); WHITE BLOOD COUNT 8.6 10^3/uL (4.0-10.0)
[2018-01-10] MEDS: SPIRONOLACTONE 25 MG TAB PO (09:18)
[2018-01-10] MEDS: sulfaSALAzine 500 MG TABEC PO ×2 (09:18→20:32)
[2018-01-10] MEDS: PRIMIDONE 250 MG TAB PO ×3 (09:18→20:34)
[2018-01-10] MEDS: FUROSEMIDE 40 MG/4 ML VIAL (J1940) IV (09:18)
[2018-01-10] MEDS: AZITHROMYCIN 250 MG TAB PO (09:19)
[2018-01-10] MEDS: TORSEMIDE 20 MG TAB PO (09:19)
[2018-01-10] MEDS: OYSTER SHELL CALCIUM 500 MG TAB PO ×2 (09:19→20:33)
[2018-01-10] MEDS: SENOKOT S TAB PO ×2 (09:19→20:33)
[2018-01-10] MEDS: METOPROLOL SUCC (TopROL XL) 50MG **XL** TAB PO (09:20)
[2018-01-10] MEDS: FOLIC ACID 1 MG TAB PO (09:20)
[2018-01-10] MEDS: metOLazone 2.5 MG TAB PO (09:20)
[2018-01-10] MEDS: LATANOPROST 0.005% OPHTH SOLN 2.5 ML OU (09:21)
[2018-01-10 09:59] LABS: ANION GAP 9 MEQ/L (8-16); BLOOD UREA NITROGEN 26 MG/DL (7-18); CALCIUM LEVEL 8.7 MG/DL (8.8-10.2); CARBON DIOXIDE LEVEL 32 MEQ/L (21-32); CHLORIDE LEVEL 100 MEQ/L (98-107); GLOMERULAR FILTRATION RATE 45.7 (>32); GLUCOSE, FASTING 139 MG/DL (70-100); MAGNESIUM LEVEL 1.9 MG/DL (1.8-2.4); POTASSIUM SERUM 3.6 MEQ/L (3.5-5.1); SODIUM LEVEL 141 MEQ/L (136-145)
[2018-01-10] MEDS: POTASSIUM CHLORIDE 10 MEQ SR TABLET PO (11:18)
[2018-01-10] MEDS: LevoFLOXacin 500 MG TABLET PO (12:06)
[2018-01-10] MEDS: VITAMIN D 1,000 INTERNATIONAL UNITS TABLET PO (20:33)
[2018-01-10] MEDS: ATORVASTATIN 20 MG TAB PO (20:34)
[2018-01-11 06:20] LABS: BASO % 0.3 % (0.0-1.0); EOS # 0.1 10^3/uL (0.0-0.50); HEMATOCRIT 32.6 % (36.0-47.0); HEMOGLOBIN 10.4 g/dl (12.0-15.5); IMMATURE GRANULOCYTE % 0.9 % (0-3.0); LYMPH # 1.4 10^3/uL (1.5-4.5); LYMPH % 20.1 % (24.0-44.0); MEAN CORPUSCULAR HEMOGLOBIN 32.4 pg (27.0-33.0); MEAN CORPUSCULAR HGB CONC 31.9 g/dl (32.0-36.5); MEAN CORPUSCULAR VOLUME 101.6 fl (80.0-96.0); MONO # 0.6 10^3/uL (0.0-0.8); MONO % 8.9 % (0.0-5.0); NEUTROPHILS # 4.7 10^3/uL (1.8-7.7); NEUTROPHILS % 67.8 % (36.0-66.0); PLATELET COUNT, AUTOMATED 324 10^3/uL (150-450); RED BLOOD COUNT 3.21 10^6/uL (4.00-5.40); RED CELL DISTRIBUTION WIDTH 14.9 % (11.5-14.5)
[2018-01-11] MEDS: LevoFLOXacin 500 MG TABLET PO (06:30)
[2018-01-11] MEDS: LEVOTHYROXINE 100MCG TABLET (0.1MG) PO (06:30)
[2018-01-11] MEDS: HEPARIN SOD (PORCINE) 5000 UNITS/ML VIAL SC (06:30)
[2018-01-11] MEDS: SLF 3 ML SYR IV (06:31)
[2018-01-11 06:42] LABS: ANION GAP 9 MEQ/L (8-16); BLOOD UREA NITROGEN 33 MG/DL (7-18); CALCIUM LEVEL 9.8 MG/DL (8.8-10.2); CARBON DIOXIDE LEVEL 32 MEQ/L (21-32); CHLORIDE LEVEL 99 MEQ/L (98-107); CREATININE FOR GFR 1.32 MG/DL (0.55-1.30); GLOMERULAR FILTRATION RATE 40.9 (>32); GLUCOSE, FASTING 111 MG/DL (70-100); MAGNESIUM LEVEL 1.9 MG/DL (1.8-2.4); POTASSIUM SERUM 3.8 MEQ/L (3.5-5.1); SODIUM LEVEL 140 MEQ/L (136-145)
[2018-01-11] MEDS: BUDESONIDE 0.5 MG/2 ML INHALATION SUSPENSION INH (07:50)
[2018-01-11] MEDS: SYMBICORT 160/4.5MCG INHALER 6GM INH (07:50)
[2018-01-11] MEDS: IPRATROPIUM 0.5MG/ALBUTEROL 2.5MG INH SOL UD 3ML (DUONEB)(J7620) NEB ×2 (07:50→11:26)
[2018-01-11] MEDS ORDERED: TORSEMIDE 20 MG TAB PO (09:00)
[2018-01-11] MEDS: SPIRONOLACTONE 25 MG TAB PO (09:11)
[2018-01-11] MEDS: FOLIC ACID 1 MG TAB PO (09:12)
[2018-01-11] MEDS: SENOKOT S TAB PO (09:12)
[2018-01-11] MEDS: METOPROLOL SUCC (TopROL XL) 50MG **XL** TAB PO (09:12)
[2018-01-11] MEDS: OYSTER SHELL CALCIUM 500 MG TAB PO (09:12)
[2018-01-11] MEDS: AZITHROMYCIN 250 MG TAB PO (09:12)
[2018-01-11] MEDS: sulfaSALAzine 500 MG TABEC PO (09:13)
[2018-01-11] MEDS: LATANOPROST 0.005% OPHTH SOLN 2.5 ML OU (09:13)
[2018-01-11] MEDS: PRIMIDONE 250 MG TAB PO (09:13)
[2018-01-11] MEDS: FLUTICASONE PROP 0.05% NASAL SPRAY 16 GM (FLONASE) NARES (09:58)
[2018-01-11] MEDS ORDERED: SYMBICORT 160/4.5MCG INHALER 6GM INH (20:00)
== END 2018-01-11 12:55 | disposition home or self-care (01) | DRG 292 ==
LOC: M ED 11:13 → M ED INP 15:26 → M PCU 18:18
DX: I11.0 Hypertensive heart disease with heart failure (principal); Z68.41 Body mass index [BMI] 40.0-44.9, adult; E87.6 Hypokalemia; D53.9 Nutritional anemia, unspecified; I25.10 Atherosclerotic heart disease of native coronary artery without angina pectoris; Z95.2 Presence of prosthetic heart valve; G47.33 Obstructive sleep apnea (adult) (pediatric); E03.9 Hypothyroidism, unspecified; M06.9 Rheumatoid arthritis, unspecified; G25.0 Essential tremor; H40.9 Unspecified glaucoma; G62.9 Polyneuropathy, unspecified; Z79.899 Other long term (current) drug therapy; Z88.5 Allergy status to narcotic agent; Z88.8 Allergy status to other drugs, medicaments and biological substances; Z88.6 Allergy status to analgesic agent; J45.909 Unspecified asthma, uncomplicated; E66.01 Morbid (severe) obesity due to excess calories; Z99.81 Dependence on supplemental oxygen; Z91.19 Patient's noncompliance with other medical treatment and regimen; E78.5 Hyperlipidemia, unspecified; Z87.891 Personal history of nicotine dependence; K59.00 Constipation, unspecified; I50.33 Acute on chronic diastolic (congestive) heart failure

== ENCOUNTER → 2018-01-15 | Outpatient (REF) | payer MEDICARE ==
[2018-01-15 18:29] LABS: ALBUMIN 3.4 GM/DL (3.2-5.2); ALBUMIN/GLOBULIN RATIO 0.71 (1.00-1.93); ALKALINE PHOSPHATASE 92 U/L (45-117); ALT/SGPT 14 U/L (12-78); ANION GAP 9 MEQ/L (8-16); AST/SGOT 28 U/L (7-37); BILIRUBIN,TOTAL 0.2 MG/DL (0.2-1.0); BLOOD UREA NITROGEN 39 MG/DL (7-18); CALCIUM LEVEL 10.2 MG/DL (8.8-10.2); CARBON DIOXIDE LEVEL 33 MEQ/L (21-32); CHLORIDE LEVEL 97 MEQ/L (98-107); CREATININE FOR GFR 1.57 MG/DL (0.55-1.30); GLOMERULAR FILTRATION RATE 33.5 (>32); GLUCOSE, FASTING 83 MG/DL (70-100); POTASSIUM SERUM 4.9 MEQ/L (3.5-5.1); SODIUM LEVEL 139 MEQ/L (136-145); TOTAL PROTEIN 8.2 GM/DL (6.4-8.2)
== END ==
LOC: M LAB REF 16:58
DX: R60.9 Edema, unspecified (principal)
CPT/HCPCS: 80053

== ENCOUNTER → 2018-01-18 | Outpatient (REF) | payer MEDICARE ==
[2018-01-18 12:39] LABS: ANION GAP 10 MEQ/L (8-16); BLOOD UREA NITROGEN 40 MG/DL (7-18); CALCIUM LEVEL 10.2 MG/DL (8.8-10.2); CARBON DIOXIDE LEVEL 32 MEQ/L (21-32); CHLORIDE LEVEL 99 MEQ/L (98-107); CREATININE FOR GFR 1.32 MG/DL (0.55-1.30); GLOMERULAR FILTRATION RATE 40.9 (>32); GLUCOSE, FASTING 105 MG/DL (70-100); MAGNESIUM LEVEL 2.1 MG/DL (1.8-2.4); POTASSIUM SERUM 4.3 MEQ/L (3.5-5.1); SODIUM LEVEL 141 MEQ/L (136-145)
== END ==
LOC: M LABDRAW1 10:07
DX: R39.9 Unspecified symptoms and signs involving the genitourinary system (principal)

== ENCOUNTER → 2018-01-18 | Outpatient (REF) | payer MEDICARE ==
[2018-01-18 11:50] LABS: BASO % 0.4 % (0.0-1.0); EOS # 0.2 10^3/uL (0.0-0.50); EOS % 3.1 % (0.0-3.0); HEMATOCRIT 32.9 % (36.0-47.0); HEMOGLOBIN 10.6 g/dl (12.0-15.5); IMMATURE GRANULOCYTE % 0.9 % (0-3.0); LYMPH # 1.4 10^3/uL (1.5-4.5); LYMPH % 21.5 % (24.0-44.0); MEAN CORPUSCULAR HEMOGLOBIN 32.7 pg (27.0-33.0); MEAN CORPUSCULAR HGB CONC 32.2 g/dl (32.0-36.5); MEAN CORPUSCULAR VOLUME 101.5 fl (80.0-96.0); MONO # 0.5 10^3/uL (0.0-0.8); MONO % 7.7 % (0.0-5.0); NEUTROPHILS # 4.5 10^3/uL (1.8-7.7); NEUTROPHILS % 66.4 % (36.0-66.0); PLATELET COUNT, AUTOMATED 358 10^3/uL (150-450); RED BLOOD COUNT 3.24 10^6/uL (4.00-5.40); RED CELL DISTRIBUTION WIDTH 14.4 % (11.5-14.5); WHITE BLOOD COUNT 6.7 10^3/uL (4.0-10.0)
[2018-01-18 12:12] LABS: ALBUMIN 3.3 GM/DL (3.2-5.2); ALBUMIN/GLOBULIN RATIO 0.72 (1.00-1.93); ALKALINE PHOSPHATASE 83 U/L (45-117); ALT/SGPT 13 U/L (12-78); ANION GAP 9 MEQ/L (8-16); AST/SGOT 25 U/L (7-37); BILIRUBIN,TOTAL 0.3 MG/DL (0.2-1.0); BLOOD UREA NITROGEN 41 MG/DL (7-18); CALCIUM LEVEL 10.2 MG/DL (8.8-10.2); CARBON DIOXIDE LEVEL 32 MEQ/L (21-32); CHLORIDE LEVEL 99 MEQ/L (98-107); CREATININE FOR GFR 1.33 MG/DL (0.55-1.30); GLOMERULAR FILTRATION RATE 40.6 (>32); GLUCOSE, FASTING 104 MG/DL (70-100); MAGNESIUM LEVEL 2.3 MG/DL (1.8-2.4); POTASSIUM SERUM 4.2 MEQ/L (3.5-5.1); SODIUM LEVEL 140 MEQ/L (136-145); TOTAL PROTEIN 7.9 GM/DL (6.4-8.2)
== END ==
LOC: M LABDRAW1 10:04
DX: I10 Essential (primary) hypertension (principal)
CPT/HCPCS: 83735

== ENCOUNTER → 2018-02-25 | Outpatient (REF) | payer MEDICARE | LOC: M LAB REF 13:28 | DX: J47.9 Bronchiectasis, uncomplicated (principal) | CPT/HCPCS: 87116 ==

== ENCOUNTER → 2018-03-01 | Outpatient (REF) | payer MEDICARE ==
[2018-03-01 12:44] LABS: HEMATOCRIT 33.1 % (36.0-47.0); HEMOGLOBIN 10.6 g/dl (12.0-15.5); MEAN CORPUSCULAR HEMOGLOBIN 33.2 pg (27.0-33.0); MEAN CORPUSCULAR VOLUME 103.8 fl (80.0-96.0); PLATELET COUNT, AUTOMATED 370 10^3/uL (150-450); RED BLOOD COUNT 3.19 10^6/uL (4.00-5.40); RED CELL DISTRIBUTION WIDTH 14.7 % (11.5-14.5); WHITE BLOOD COUNT 7.3 10^3/uL (4.0-10.0)
[2018-03-01 12:52] LABS: ALBUMIN 3.4 GM/DL (3.2-5.2); ALBUMIN/GLOBULIN RATIO 0.81 (1.00-1.93); ALKALINE PHOSPHATASE 83 U/L (45-117); ALT/SGPT 14 U/L (12-78); ANION GAP 7 MEQ/L (8-16); AST/SGOT 29 U/L (7-37); BILIRUBIN,TOTAL 0.3 MG/DL (0.2-1.0); BLOOD UREA NITROGEN 29 MG/DL (7-18); CALCIUM LEVEL 9.4 MG/DL (8.8-10.2); CARBON DIOXIDE LEVEL 33 MEQ/L (21-32); CHLORIDE LEVEL 98 MEQ/L (98-107); CHOLESTEROL LEVEL 234 MG/DL (<200); CHOLESTEROL RISK RATIO 2.363 (<5); CREATININE FOR GFR 1.05 MG/DL (0.55-1.30); GLOMERULAR FILTRATION RATE 53.3 (>32); GLUCOSE, FASTING 92 MG/DL (70-100); HDL CHOLESTEROL 99 MG/DL (>40); LDL CHOLESTEROL 102 MG/DL (<100); MAGNESIUM LEVEL 2.2 MG/DL (1.8-2.4); NON-HDL-C 135 MG/DL; POTASSIUM SERUM 4.1 MEQ/L (3.5-5.1); SODIUM LEVEL 138 MEQ/L (136-145); TOTAL PROTEIN 7.6 GM/DL (6.4-8.2); TRIGLYCERIDES LEVEL 167 MG/DL (<150)
== END ==
LOC: M SFHCPLAZ 12:04
DX: D64.9 Anemia, unspecified (principal); I27.81 Cor pulmonale (chronic); I10 Essential (primary) hypertension
CPT/HCPCS: 83735

== ENCOUNTER → 2018-06-24 | Outpatient (REF) | payer MEDICARE ==
[~2018-06-24] MED LIST changes: -ASPI-101 PO; +ASPI-225 PO; -FLAX1000 PO; +FLAX10008 PO; +FOLI800C PO; +INDE80CA9 PO; -LASI20TA PO; +LASI20TA3 PO; +LASI80TA3 PO; +LATA5OPD OU; +LEVA250T13 PO; -PROP40TA PO; +PROP40TA62 PO; +SPIR-10 PO; -SPIR25TA2 PO; +TORS20TA2 PO
[2018-06-24 16:25] LABS: HEMATOCRIT 36.7 % (36.0-47.0); HEMOGLOBIN 11.7 g/dl (12.0-15.5); MEAN CORPUSCULAR HEMOGLOBIN 32.7 pg (27.0-33.0); MEAN CORPUSCULAR HGB CONC 31.9 g/dl (32.0-36.5); MEAN CORPUSCULAR VOLUME 102.5 fl (80.0-96.0); PLATELET COUNT, AUTOMATED 427 10^3/uL (150-450); RED BLOOD COUNT 3.58 10^6/uL (4.00-5.40)
[2018-06-24 16:35] LABS: ALBUMIN 3.4 GM/DL (3.2-5.2); BILIRUBIN,TOTAL 0.3 MG/DL (0.2-1.0); CALCIUM LEVEL 8.8 MG/DL (8.8-10.2); CREATININE FOR GFR 1.57 MG/DL (0.55-1.30); GLOMERULAR FILTRATION RATE 33.4 (>32); MAGNESIUM LEVEL 2.3 MG/DL (1.8-2.4); POTASSIUM SERUM 3.8 MEQ/L (3.5-5.1); THYROID STIMULATING HORMONE 0.661 uIU/ML (0.358-3.740)
== END ==
LOC: M SFHCPLAZ 13:42
PROVIDERS: ATTEND Internal Medicine
DX: D64.9 Anemia, unspecified (principal); I10 Essential (primary) hypertension; E03.9 Hypothyroidism, unspecified
CPT/HCPCS: 36415; 80053; 83735; 84443; 85027; G0463

== ENCOUNTER → 2018-07-07 | Outpatient (REF) | payer MEDICARE | LOC: M LAB REF 13:00 | PROVIDERS: ATTEND Internal Medicine Pulmonary Disease | DX: J47.9 Bronchiectasis, uncomplicated (principal) ==

== ENCOUNTER → 2018-07-08 | Outpatient (CLI) | payer MEDICARE ==
--- NOTE | 2018-07-25 00:22 | ECWPNPC ---
PATIENT NAME: STEFANO ROLDAN : 1935 GENDER: FEMALE VISIT DATE: 07/08/2018 DISCHARGE DATE: 07/08/181623 VISIT LOCKED DATE TIME: PHYSICIAN: BENIETZ MALAVE MD RESOURCE: BENITEZ MALAVE MD REASON FOR APPOINTMENT 1. NON COMP BACK HISTORY OF PRESENT ILLNESS FALL RISK SCREENING: SCREENING :NO FALLS IN THE PAST YEAR PAIN SCREENING: PATIENT HAS A COMPLAINT OF ACUTE OR CHRONIC PAIN :YES 83 YEAR OLD FEMALE PATIENT WITH A HISTORY OF CHRONIC NECK PAIN. THE PATIENT DESCRIBES THE PAIN SHARP AND INTERMITTENT WITH A PAIN SCORE OF 7-10/10 DEPENDING ON PHYSICAL ACTIVITY. THE PATIENT SAYS HER PAIN IS MAINLY LOCATED ON THE LEFT SIDE OF HER NECK. THE PATIENT SAYS THAT SHE HAS SEVERE SPASMS IN HER NECK AND HAS DIFFICULTY EXTENDING HER NECK DUE TO THIS PAIN. THE PATIENT REPORTS FINDING A MASS OVER HER NECK THAT STARTED TO HURT AROUND 5 MONTHS AGO. THE PATIENT HAS A HISTORY OF TREMORS AND SAYS SHE STARTED GETTING BOTOX IN ONLY FOR THEM. PATIENT DENIES UNEXPLAINABLE WEIGHT LOSS, FEVER, CHILLS, NEW CHANGES ON HER URINARY OR BOWEL CONTROL. CURRENT MEDICATIONS TAKING CALCIUM 1000 MG TABLET 1 TABLET ORALLY TWICE A DAY TAKING VITAMIN D3 2000 UNIT CAPSULE 1 CAPSULE ORALLY ONCE A DAY TAKING OXYGEN - MISCELLANEOUS PORTABLE OXYGEN NASAL CANNULA AT 2 LITERS FOR AMBULATION AND TRIPS OUT OF THE HOME TAKING INCRUSE ELLIPTA 62.5 MCG/INH AEROSOL POWDER BREATH ACTIVATED 1 PUFF INHALATION ONCE A DAY TAKING DULERA 200-5 MCG/ACT AEROSOL 2 PUFFS INHALATION TWICE A DAY TAKING PRIMIDONE 250 MG TABLET 1 TABLET ORALLY THREE TIMES DAILY TAKING ALDACTONE 25 MG TABLET 1 TABLET ORALLY DAILY TAKING LIPITOR 20 MG TABLET 1 TABLET ORALLY ONCE A DAY TAKING SYNTHROID 100 MCG TABLET 1 TABLET ORALLY ONCE A DAY TAKING SULFASALAZINE 500 MG TABLET 2 TABLET ORALLY TWICE DAILY TAKING LATANOPROST 0.005 % SOLUTION 1 DROP INTO EACH EYE OPHTHALMIC ONCE A DAY TAKING FLAX SEED OIL 1000 MG CAPSULE 1 CAP ORALLY TWICE DAILY TAKING SENNA PLUS 8.6-50 MG TABLET 2 TABLETS ORALLY TWICE DAILY TAKING ALBUTEROL SULFATE (2.5 MG/3ML) 0.083% NEBULIZATION SOLUTION 3 ML INHALATION THREE TIMES A DAY TAKING BUDESONIDE 0.5 MG/2ML SUSPENSION 2 ML INHALATION TWICE A DAY TAKING TORSEMIDE 20 MG TABLET DIRECTED ORALLY 3 TABLETS DAILY ON SUNDAY/SUNDAY/SUNDAY, 40 MG DAILY ON THE OTHER DAYS OF THE WEEK NOT-TAKING FOLIC ACID 800 MCG TABLET 1 TABLET ORALLY ONCE A DAY NOT-TAKING FLONASE 50 MCG/ACT SUSPENSION 2 SPRAY IN EACH NOSTRIL NASALLY ONCE A DAY NOT-TAKING TIZANIDINE HCL 2 MG TABLET 1 TABLET NEEDED ORALLY THREE TIMES A DAY NOT-TAKING CLOTRIMAZOLE-BETAMETHASONE 0.05-1 % CREAM 1 APPLICATION TO AFFECTED AREA EXTERNALLY TWICE A DAY MEDICATION LIST REVIEWED AND RECONCILED WITH THE PATIENT PAST MEDICAL HISTORY ATHEROSCLEROTIC HEART DISEASE OF TRIBE CORONARY ARTERY WITHOUT ANGINA PECTORIS HYPOTHYROIDISM, UNSPECIFIED ESSENTIAL TREMOR PERSONAL HISTORY OF OTHER MALIGNANT NEOPLASM OF LARGE INTESTINE UNSPECIFIED GLAUCOMA HYPERCHOLESTEROLEMIA CALCULUS OF GALLBLADDER WITHOUT CHOLECYSTITIS WITHOUT OBSTRUCTION ANEMIA, 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 OF LARGE INTESTINE WITHOUT PERFORATION OR ABSCESS WITHOUT BLEEDING HYPERTENSION ASTHMA MACULAR DEGENERATION OSTEOPENIA SLEEP APNEA ANXIETY BACK AND NECK PAIN ALLERGIES TETRACYCLINE HCL: HIVES: ALLERGY KEFLEX: RASH: ALLERGY IV DYE, IODINE CONTAINING CONTRAST MEDIA: HIVES: ALLERGY MORPHINE IR: CONFUSION: ALLERGY IBUPROFEN: DYSPNEA, TIGHTTNESS IN CHEST: ALLERGY UNABLE TO TAKE BETA BLOCKERS DUE TO LUNG DISEASE: CONTRAINDICATION NSAIDS: UNABLE TO TAKE DUE DO ASTHMA: CONTRAINDICATION SURGICAL HISTORY CARDIAC CATHETERIZATION WITH STANT PLACEMENT 01/2005 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 WILSON 03/16/2015 HYSTERECTOMY ?1974 TONSILLECTOMY A CHILD FAMILY HISTORY FATHER: 67 YRS, DIAGNOSED WITH HEART DISEASE MOTHER: 67 YRS, DIAGNOSED WITH HEART DISEASE 2 SON(S) , 3 DAUGHTER(S) . FATHER OF [place] AGE 67. CORONARY ARTERY DISEASE MOTHER OF CHF AGE 67. BROTHER() HAS HYPERTENSION, TREMOR. , 4 MISCARRIAGES, REMAINING CHILDREN ESSENTIALLY HEALTHYDAUGHTER-CERVICAL DYSTONIAOLDEST DAUGHTER-[place]. SOCIAL HISTORY GENERAL: TOBACCO USE ARE YOU A:FORMER SMOKER HOW LONG HAS IT BEEN SINCE YOU LAST SMOKED?> 10 YEARS ALCOHOL SCREENING DID YOU HAVE A DRINK CONTAINING ALCOHOL IN THE PAST YEAR?NO POINTS0 INTERPRETATIONNEGATIVE RECREATIONAL DRUG USE DRUG USE?NO SEXUAL HX HAD SEX IN THE LAST 12 MONTHS (VAGINAL, ORAL, OR ANAL)?NO HAVE YOU EVER HAD AN STD?NO HIV / HEP-C SCREENING HIV TEST OFFERED TO PATIENT:YES DATE OFFERED:09/17/2017 TEST ACCEPTED:NO HEP-C TEST OFFERED TO PATIENT:YES DATE OFFERED:09/17/2017 REASON:PATIENT DECLINED TEST ACCEPTED:NO REASON:PATIENT DECLINED BROCHURE PROVIDED TO PATIENTYES LATTER-DAY [id number] MANDAEISM LANGUAGE OMANI. 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 MARITAL STATUS: . PAIN CLINIC PFS, CLERGY, PUBLIC HEALTH REFERRALS PFS REFERRAL NEEDED?NO CLERGY REFERRAL NEEDED?NO PUBLIC HEALTH REFERRAL NEEDED?NO WAS THE PROVIDER NOTIFIED OF ANY PERTINENT INFO? N/A HAS THE PATIENT BEEN EDUCATED REGARDING HIS/HER PLAN OF CARE?YES HAS THE PATIENT BEEN EDUCATED REGARDING PAIN, THE RISK FOR PAIN, THE IMPORTANCE OF EFFECTIVE PAIN MANAGEMENT, AND THE PAIN ASSESSMENT PROCESS?YES HOUSING: OWNS HOME. ADVANCE DIRECTIVE ADVANCE DIRECTIVE DISCUSSED WITH PATIENT:YES STATES SHE HAS HCP: MAURICE GEORGEDEANDRAJeremy-DAUGHTER POA: HILARY VALDES-[employer] WILL OCCUPATION - DISABLED RN. HOSPITALIZATION/MAJOR DIAGNOSTIC PROCEDURE HOSPITALIZED FOR PNEUMONIA APRIL 2016 QDI-GEYYECT-[facility], ASTHMA 01/08-01/11/2018 SURGERIES REVIEW OF SYSTEMS REVIEWED BY: PROVIDER: BENITEZ MALAVE MD . CONSTITUTIONAL: ANY CHANGE IN YOUR MEDICAL CONDITION? NO . CHILLS NO . FEVER NO . INFECTION: DO YOU HAVE NEW INFECTIONS? NO . DO YOU HAVE HISTORY OF MRSA? NO . MUSCULOSKELETAL: ANY NEW PATTERNS OF PAIN OR NUMBNESS? NO . SYTEMIC LUPUS NO . GASTROENTEROLOGY: ANY NEW CHANGE IN BOWEL CONTROL? NO . BARRETTS ESOPHAGUS NO . CIRRHOSIS NO . HEPATITIS NO . LIVER FAILURE NO . ACID REFLUX NO . UNEXPLAINED WEIGHT LOSS NO . GENITOURINARY: ANY NEW CHANGE IN BLADDER CONTROL? YES, INCONTINENT . IS THERE A CHANCE YOU COULD BE ? NO . HEMATOLOGY/LYMPH: DO YOU TAKE ANY BLOOD THINNERS? (FOR EXAMPLE- COUMADIN, PLAVIX, AGGRENOX, PLATEL, PRADAXA, OR XARELTO) NO . WHEN WAS YOUR LAST DOSE? DATE: TIME: . LOW PLATELET COUNT NO . SICKLE CELL DISEASE NO . VON WILLIEBRANDS NO . FACTOR V LEIDEN NO . THALLASEMIA NO . ANEMIA YES--HISTORY OF BUT NOT ON ANYTHING . EASY BRUISING NO . NEUROLOGY: HAVE YOU FALLEN IN THE PAST 12 MONTHS? YES, SEVERAL TIME--NO INJURY . ANY NEW EXTREMITY NUMBNESS OR WEAKNESS? YES, WEAKNESS IN BOTH ARMS FOR APPROX 2 MONTHS--HAVING RPT, WEAKNESS IN LEGS FOR A LONG TIME . HEAD INJURY NO . DEMENTIA NO . CEREBRAL PALSY NO . MULTIPLE SCLEROSIS NO . DIZZINESS NO . HEADACHE NO . STROKES NO . VERTIGO NO . CARDIOLOGY: DO YOU HAVE A PACEMAKER OR DEFIBRILLATOR? NO . ANGINA NO . HEART ATTACK NO . HEART SURGERY YES, CATH. WITH STENTS PLACED 2003 . CONGESTIVE HEART FAILURE/FLUID OVERLOAD YES . CHEST PAIN NO . HIGH BLOOD PRESSURE ON MEDICATION(S) . IRREGULAR HEART BEAT OCCASIONALLY PVC, NONE RECENT . RESPIRATORY: HAVE YOU BEEN SICK IN THE PAST WEEK? NO . FEVER NO . FLU LIKE SYMPTOMS? NO . CPAP NO, HAS GALO BUT DOESN'T USE CPAP, WEARS O2 AT 2L/MIN . BYPAP NO . ASTHMA YES . EMPHYSEMA NO . CHRONIC LUNG DISEASES NO . SHORTNESS OF BREATH ON EXERTION YES . COUGH YES, CHRONIC COUGH DUE TO ASTHMA CONGESTIVE BUT UNABLE TO RAISE . SNORING YES . INTEGUMENTARY: DO YOU HAVE ANY RASHES OR OPEN SORES? NO . ALLERGIC/IMMUNO: ARE YOU ALLERGIC TO IV DYE? NO ALLERGIC TO BETADINE . ANY NEW ALLERGIES? NO . PSYCHIATRIC: DO YOU HAVE THOUGHTS OF HURTING YOURSELF OR SOMEONE ELSE? NO . ARE YOU ABUSED, NEGLECTED, OR IN AN UNSAFE ENVIRONMENT? NO . ENDOCRINOLOGY: ARE YOU DIABETIC? NO . THYROID DISORDER HYPOTHYROID . OTHER: DO YOU NEED ANY PRESCRIPTIONS? NO . IF YES, PLEASE LIST: ____ . ANY NEW PROBLEMS WITH YOUR MEDICATIONS? NO . WHEN DID YOU LAST EAT? ____ . WHEN DID YOU LAST DRINK? ____ . WHAT DID YOU LAST DRINK? ____ . NAME OF PERSON DRIVING YOU HOME? ____ . DO YOU HAVE ANY OTHER QUESTIONS OR CONCERNS WOULD LIKE TO DISCUSS BOTOX FOR ESSENTIAL TREMORS AND SOMETHING FOR HER NECK PAIN . VITAL SIGNS WT 220 LBS, HT 5'1", BMI 41.56 INDEX, BP 121/73 MM HG, HR 103 /MIN, RR 22 /MIN, TEMP 97.8 F, OXYGEN SAT % 96%, SAFE IN ENV? (Y/N) Y, NA INITIALS SC 13:36, REVIEWED BY: TRINIDAD. EXAMINATION GENERAL EXAMINATION: PATIENT IS ALERT O X 3 AND COOPERATIVE. LUNGS CLEAR, TO AUSCULTATION. HEART: NO MURMURS OR GALLOPS; FACIAL CRANIAL NERVES ARE GROSSLY NORMAL. GOOD SYMMETRY OF FACIAL MUSCLE MOVEMENT. NORMAL VISUAL STARR. PATIENT IS USING OXYGEN. PATIENT IS IN A WHEELCHAIR AND SAYS SHE IS ABLE TO WALK WITH A WALKER. SEVERE TENDERNESS OVER THE NECK. MASS OVER THE LEFT SIDE OF NECK. ASSESSMENTS CERVICALGIA - M54.2 (PRIMARY) TREATMENT CERVICALGIA CLINICAL NOTES: WE DISCUSSED SEVERAL ISSUES WITH MRS. ROLDAN'S PAIN MANAGEMENT CASE. I WOULD LIKE THE PATIENT TO START USING TIZANIDINE FOR THE SPASMS IN HER NECK. I WILL GET COPIES OF THE PATIENT'S NOTES FROM ONLY REGARDING THE BOTOX FOR THE TREMORS. I WILL DISCUSS THE CASE WITH THE PATIENT'S PRIMARY CARE PHYSICIAN REGARDING THE MASS OVER THE PATIENT'S NECK. THE PATIENT WILL FOLLOW UP IN 3 MONTHS. INSTRUCTIONS WERE GIVEN, QUESTIONS WERE ANSWERED, PATIENT REPORTS UNDERSTANDING AND AGREES WITH THE PLAN. I, KAYA LORD, DOCUMENTED THE ABOVE INFORMATION ACTING A SCRIBE FOR DR. MALAVE. I HAVE REVIEWED THE ABOVE DOCUMENT, WRITTEN BY KAYA PRADO AND I VERIFY THAT IT IS ACCURATE. DEAR DR. SPENCER:THANK YOU FOR YOUR KIND REFERRAL OF MRS. ROLDAN. IF YOU WANT TO DISCUSS HER CASE WITH ME PLEASE CALL ME AT THE PAIN CENTER AT [phone]. SINCERELY,BENITEZ MALAVE, [facility]. OTHERS REFILL TIZANIDINE HCL TABLET, 2 MG, 1 TO 2 TABLET NEEDED, ORALLY FOR SPASMS AND PAIN, BEFORE BEDTIME MDD2, 7 DAYS, 10, REFILLS 0 START TIZANIDINE HCL TABLET, 2 MG, 1 TO 2 TABLET NEEDED, ORALLY FOR SPASMS AND PAIN, ONCE DAILY, 7 DAYS, 10, REFILLS 0 PREVENTIVE MEDICINE PAIN CLINIC TEACHING: MEDICATIONS PRINTED INFORAMTION ON TIZANIDINE DECLINED, PT STATED THAT SHE HAS TAKEN IT BEFORE AND IS FAMILIAR WITH IT. . PROCEDURE CODES FA211 ESTABILISHED [facility]IENT [facility] CHARGE G8427 CURRENT MEDS W/DOSAGES DOCUMENTED G8730 PAIN ASSESS POS TOOL F/U PLAN DOC DISPOSITION & COMMUNICATION FOLLOW UP 3 MONTHS ELECTRONICALLY SIGNED BY BENITEZ MALAVE MD, MD ON 07/24/2018 AT 06:56 AM EST DISCLAIMER : THIS IS A VISIT SUMMARY EXTRACTED FROM THE [employer] CHART. IT IS NOT A COPY OF THE [employer] PROGRESS NOTE. EBONI
== END ==
LOC: M PAIN 13:30
PROVIDERS: ATTEND Anesthesiology
DX: M54.2 Cervicalgia (principal); G89.29 Other chronic pain; I25.10 Atherosclerotic heart disease of native coronary artery without angina pectoris; E03.9 Hypothyroidism, unspecified; G25.0 Essential tremor; E78.00 Pure hypercholesterolemia, unspecified; D64.9 Anemia, unspecified; M85.80 Other specified disorders of bone density and structure, unspecified site; J45.909 Unspecified asthma, uncomplicated; G47.30 Sleep apnea, unspecified; F41.9 Anxiety disorder, unspecified; E66.01 Morbid (severe) obesity due to excess calories; Z68.41 Body mass index [BMI] 40.0-44.9, adult; Z79.51 Long term (current) use of inhaled steroids; Z79.899 Other long term (current) drug therapy; Z88.1 Allergy status to other antibiotic agents; Z88.5 Allergy status to narcotic agent; Z88.6 Allergy status to analgesic agent; Z88.8 Allergy status to other drugs, medicaments and biological substances; Z91.041 Radiographic dye allergy status; Z86.79 Personal history of other diseases of the circulatory system; Z87.891 Personal history of nicotine dependence

== ENCOUNTER → 2018-09-30 | Outpatient (REF) | payer MEDICARE ==
[~2018-09-30] MED LIST changes: -/AMLO25TA PO; -/FENO14TA PO; +HYDR-3715 PO; +LATA0.0013 OU; -LATA5OPD OU; -NORCOTAB PO; +NORV2TAB PO; -SENN1TAB2 PO; +SENN1TAB40 PO; +TRIC145T19 PO
[2018-09-30 18:46] LABS: HEMATOCRIT 35.2 % (36.0-47.0); HEMOGLOBIN 11.2 g/dl (12.0-15.5); MEAN CORPUSCULAR HGB CONC 31.8 g/dl (32.0-36.5); PLATELET COUNT, AUTOMATED 439 10^3/uL (150-450); RED BLOOD COUNT 3.29 10^6/uL (4.00-5.40); WHITE BLOOD COUNT 9.9 10^3/uL (4.0-10.0)
[2018-09-30 19:33] LABS: ALBUMIN 3.2 GM/DL (3.2-5.2); BILIRUBIN,TOTAL 0.3 MG/DL (0.2-1.0); CALCIUM LEVEL 8.8 MG/DL (8.8-10.2); CREATININE FOR GFR 1.1 MG/DL (0.55-1.30); GLOMERULAR FILTRATION RATE 50.4 (>32); MAGNESIUM LEVEL 1.9 MG/DL (1.8-2.4); POTASSIUM SERUM 4.1 MEQ/L (3.5-5.1)
== END ==
LOC: M LABDRAW1 16:41
PROVIDERS: ATTEND Internal Medicine
DX: D64.9 Anemia, unspecified (principal); I10 Essential (primary) hypertension

== ENCOUNTER → 2018-10-01 | Outpatient (CLI) | payer MEDICARE ==
--- NOTE | 2018-10-23 02:05 | ECWPNPC ---
PATIENT NAME: STEFANO ROLDAN : 1935 GENDER: FEMALE VISIT DATE: 10/01/2018 DISCHARGE DATE: 10/01/18 1505 VISIT LOCKED DATE TIME: PHYSICIAN: MADY JAY RESOURCE: MADY JAY REASON FOR APPOINTMENT 1. NECK PAIN HISTORY OF PRESENT ILLNESS HISTORY OF PRESENT ILLNESS: HERE FOR F/U CHRONIC NECK PAIN.FEELS TIZANIDINE IS HELPFUL AT REDUCING HER PAIN.RATING PAIN VAS 2/10. PAIN THE PATIENT DESCRIBES THE PAIN... FALL RISK SCREENING: SCREENING :NO FALLS REPORTED IN THE LAST YEAR CURRENT MEDICATIONS TAKING TIZANIDINE HCL 2 MG TABLET 1 TO 2 TABLET NEEDED ORALLY FOR SPASMS AND PAIN ONCE DAILY TAKING CALCIUM 1000 MG TABLET 1 TABLET ORALLY TWICE A DAY TAKING VITAMIN D3 2000 UNIT CAPSULE 1 CAPSULE ORALLY ONCE A DAY TAKING OXYGEN - MISCELLANEOUS PORTABLE OXYGEN NASAL CANNULA AT 2 LITERS FOR AMBULATION AND TRIPS OUT OF THE HOME TAKING INCRUSE ELLIPTA 62.5 MCG/INH AEROSOL POWDER BREATH ACTIVATED 1 PUFF INHALATION ONCE A DAY TAKING DULERA 200-5 MCG/ACT AEROSOL 2 PUFFS INHALATION TWICE A DAY TAKING LATANOPROST 0.005 % SOLUTION 1 DROP INTO EACH EYE OPHTHALMIC ONCE A DAY TAKING FLAX SEED OIL 1000 MG CAPSULE 1 CAP ORALLY TWICE DAILY TAKING SENNA PLUS 8.6-50 MG TABLET 2 TABLETS ORALLY TWICE DAILY TAKING ALBUTEROL SULFATE (2.5 MG/3ML) 0.083% NEBULIZATION SOLUTION 3 ML INHALATION TWICE A DAY TAKING BUDESONIDE 0.5 MG/2ML SUSPENSION 2 ML INHALATION TWICE A DAY TAKING SULFASALAZINE 500 MG TABLET 2 TABLET ORALLY TWICE DAILY TAKING SYNTHROID 100 MCG TABLET 1 TABLET ORALLY ONCE A DAY TAKING LIPITOR 20 MG TABLET 1 TABLET ORALLY ONCE A DAY TAKING ALDACTONE 25 MG TABLET 1 TABLET ORALLY DAILY TAKING PRIMIDONE 250 MG TABLET 1 TABLET ORALLY THREE TIMES DAILY TAKING TORSEMIDE 20 MG TABLET DIRECTED ORALLY 3 TABLETS (60MG) DAILY ON SUNDAY/SUNDAY/SUNDAY, AND 2 TABLETS (40MG) DAILY ON THE OTHER DAYS OF THE WEEK TAKING METHAZOLAMIDE 25 MG TABLET DIRECTED ORALLY TAKE 2 TABLETS IN THE AM, 1 TABLET AT 3PM AND 1 TABLET AT 9PM NOT-TAKING FOLIC ACID 800 MCG TABLET 1 TABLET ORALLY ONCE A DAY NOT-TAKING FLONASE 50 MCG/ACT SUSPENSION 2 SPRAY IN EACH NOSTRIL NASALLY ONCE A DAY NOT-TAKING CLOTRIMAZOLE-BETAMETHASONE 0.05-1 % CREAM 1 APPLICATION TO AFFECTED AREA EXTERNALLY TWICE A DAY MEDICATION LIST REVIEWED AND RECONCILED WITH THE PATIENT PAST MEDICAL HISTORY ATHEROSCLEROTIC HEART DISEASE OF [place] CORONARY ARTERY WITHOUT ANGINA PECTORIS HYPOTHYROIDISM, UNSPECIFIED ESSENTIAL TREMOR PERSONAL HISTORY OF OTHER MALIGNANT NEOPLASM OF LARGE INTESTINE UNSPECIFIED GLAUCOMA HYPERCHOLESTEROLEMIA CALCULUS OF GALLBLADDER WITHOUT CHOLECYSTITIS WITHOUT OBSTRUCTION ANEMIA, 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 OF LARGE INTESTINE WITHOUT PERFORATION OR ABSCESS WITHOUT BLEEDING HYPERTENSION ASTHMA MACULAR DEGENERATION OSTEOPENIA SLEEP APNEA ANXIETY BACK AND NECK PAIN ALLERGIES TETRACYCLINE HCL: HIVES - ALLERGY KEFLEX: RASH - ALLERGY IV DYE, IODINE CONTAINING CONTRAST MEDIA: HIVES - ALLERGY MORPHINE IR: CONFUSION - ALLERGY IBUPROFEN: DYSPNEA, TIGHTTNESS IN CHEST - ALLERGY UNABLE TO TAKE BETA BLOCKERS DUE TO LUNG DISEASE: CONTRAINDICATION NSAIDS: UNABLE TO TAKE DUE DO ASTHMA - CONTRAINDICATION SURGICAL HISTORY CARDIAC CATHETERIZATION WITH STANT PLACEMENT 01/2005 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 WILSON 03/16/2015 HYSTERECTOMY ?1974 TONSILLECTOMY A CHILD FAMILY HISTORY FATHER: 67 YRS, DIAGNOSED WITH HEART DISEASE MOTHER: 67 YRS, HEART DISEASE 2 SON(S) , 3 DAUGHTER(S) . FATHER OF PA AGE 67. CORONARY ARTERY DISEASE \\NMOTHER OF CHF AGE 67. \\NBROTHER() HAS HYPERTENSION, TREMOR. \\N, 4 MISCARRIAGES, \\NREMAINING CHILDREN ESSENTIALLY HEALTHY\\NDAUGHTER-CERVICAL DYSTONIA\\NOLDEST DAUGHTER-PA. SOCIAL HISTORY GENERAL: TOBACCO USE ARE YOU A:FORMER SMOKER HOW LONG HAS IT BEEN SINCE YOU LAST SMOKED?> 10 YEARS HIV / HEP-C SCREENING HIV TEST OFFERED TO PATIENT:YES DATE OFFERED:09/17/2017 TEST ACCEPTED:NO HEP-C TEST OFFERED TO PATIENT:YES DATE OFFERED:09/17/2017 REASON:PATIENT DECLINED TEST ACCEPTED:NO REASON:PATIENT DECLINED BROCHURE PROVIDED TO PATIENTYES HOUSING: OWNS HOME. LANGUAGE IRISH. RECREATIONAL DRUG USE DRUG USE?NO LEARNING BARRIERS / SPECIAL NEEDS CHANGE FROM LAST VISIT?NO BARRIERS TO LEARNING?NO HEARING IMPAIRED?NO VISION IMPAIRED?YES COGNITIVELY IMPAIRED?NO :CORRECTIVE LENSES READINESS TO LEARN?YES LEARNING PREFERENCES?NO LEARNING CAPABILITIES PRESENT?YES EMOTIONAL BARRIERS?NO SPECIAL DEVICES?YES :[facility] PEDIATRIC SPEECH THERAPIST NEEDED?NO PAIN CLINIC PFS, CLERGY, PUBLIC HEALTH REFERRALS PFS REFERRAL NEEDED?NO CLERGY REFERRAL NEEDED?NO PUBLIC HEALTH REFERRAL NEEDED?NO WAS THE PROVIDER NOTIFIED OF ANY PERTINENT INFO? N/A HAS THE PATIENT BEEN EDUCATED REGARDING HIS/HER PLAN OF CARE?YES HAS THE PATIENT BEEN EDUCATED REGARDING PAIN, THE RISK FOR PAIN, THE IMPORTANCE OF EFFECTIVE PAIN MANAGEMENT, AND THE PAIN ASSESSMENT PROCESS?YES LATEX QUESTIONNAIRE LATEX ALLERGY : HAVE YOU EVER DEVELOPED ANY TYPE OF REACTION AFTER HANDLING LATEX PRODUCTS SUCH RUBBER GLOVES, CONDOMS, DIAPHRAGMS, BALLOONS, SOCKS, OR UNDERWEAR?NO LATEX ALLERGY : HAVE YOU EVER DEVELOPED ANY TYPE OF REACTION DURING OR AFTER DENTAL APPOINTMENT, VAGINAL/RECTAL EXAMINATION, SURGICAL PROCEDURE, OR ANY OTHER EXPOSURE?NO DATE ASKED : 08/06/2018 LATEX RISK : HAVE YOU EVER HAD ANY DIFFICULTY BREATHING OR HIVES AFTER EATING OR HANDLING ANY FRUITS, OR VEGETABLES; SUCH KIWI, BANANAS, STONE FRUITS, OR CHESTNUTSNO LATEX RISK : DO YOU HAVE A PREVIOUS PERSONAL HISTORY OF MORE THAN NINE SURGERIES, SPINA BIFIDA, OR REPEATED CATHERTIZATIONS? NO LATEX RISK : ARE YOU FREQUENTLY EXPOSED TO LATEX PRODUCTS IN YOUR OCCUPATION?NO ADVANCE DIRECTIVE ADVANCE DIRECTIVE DISCUSSED WITH PATIENT:YES STATES SHE HAS HCP: MAURICE GÓMEZ-DAUGHTER POA: HILARY VALDES-SON LIVING WILL CATHOLIC [id number] [employer] MARITAL STATUS: . ALCOHOL SCREENING DID YOU HAVE A DRINK CONTAINING ALCOHOL IN THE PAST YEAR?NO POINTS0 INTERPRETATIONNEGATIVE OCCUPATION: DISABLED AND NOW RETIRED RN. SEXUAL HX HAD SEX IN THE LAST 12 MONTHS (VAGINAL, ORAL, OR ANAL)?NO HAVE YOU EVER HAD AN STD?NO OCCUPATION - DISABLED RN.REVIEWED WITH PT 10/01/18 1428 BV. HOSPITALIZATION/MAJOR DIAGNOSTIC PROCEDURE HOSPITALIZED FOR PNEUMONIA APRIL 2016 [id number], ASTHMA 01/08-01/11/2018 SURGERIES REVIEW OF SYSTEMS REVIEWED BY: PROVIDER: MADY SANTORO . CONSTITUTIONAL: ANY CHANGE IN YOUR MEDICAL CONDITION? NO . CHILLS NO . FEVER NO . INFECTION: DO YOU HAVE NEW INFECTIONS? NO . DO YOU HAVE HISTORY OF MRSA? NO . MUSCULOSKELETAL: ANY NEW PATTERNS OF PAIN OR NUMBNESS? NO . GASTROENTEROLOGY: ANY NEW CHANGE IN BOWEL CONTROL? NO . GENITOURINARY: ANY NEW CHANGE IN BLADDER CONTROL? NO . IS THERE A CHANCE YOU COULD BE ? NO . HEMATOLOGY/LYMPH: DO YOU TAKE ANY BLOOD THINNERS? (FOR EXAMPLE- COUMADIN, PLAVIX, AGGRENOX, PLATEL, PRADAXA, OR XARELTO) NO . WHEN WAS YOUR LAST DOSE? DATE: TIME: . NEUROLOGY: HAVE YOU FALLEN IN THE PAST 12 MONTHS? NO . ANY NEW EXTREMITY NUMBNESS OR WEAKNESS? NO . CARDIOLOGY: DO YOU HAVE A PACEMAKER OR DEFIBRILLATOR? NO . RESPIRATORY: HAVE YOU BEEN SICK IN THE PAST WEEK? NO . FEVER NO . FLU LIKE SYMPTOMS? NO . COUGH NO . INTEGUMENTARY: DO YOU HAVE ANY RASHES OR OPEN SORES? NO . ALLERGIC/IMMUNO: ARE YOU ALLERGIC TO IV DYE? NO . ANY NEW ALLERGIES? NO . PSYCHIATRIC: DO YOU HAVE THOUGHTS OF HURTING YOURSELF OR SOMEONE ELSE? NO . ARE YOU ABUSED, NEGLECTED, OR IN AN UNSAFE ENVIRONMENT? NO . ENDOCRINOLOGY: ARE YOU DIABETIC? NO . OTHER: DO YOU NEED ANY PRESCRIPTIONS? YES, TIZANIDINE . IF YES, PLEASE LIST: ____ . ANY NEW PROBLEMS WITH YOUR MEDICATIONS? NO . WHEN DID YOU LAST EAT? ____ . WHEN DID YOU LAST DRINK? ____ . WHAT DID YOU LAST DRINK? ____ . NAME OF PERSON DRIVING YOU HOME? ____ . DO YOU HAVE ANY OTHER QUESTIONS OR CONCERNS NO . VITAL SIGNS WT 220 LBS, HT 5'1", BMI 41.56 INDEX, BP 135/77 MM HG, HR 102 /MIN, RR 20 /MIN, TEMP 98.9 F, OXYGEN SAT % 93%-2L, REVIEWED BY: BV. EXAMINATION GENERAL EXAMINATION: GENERAL APPEARANCE:AWAKE,ALERT ,PLEAASANT . PSYCHAFFECT NORMAL . LUNGS:LUNG STARR ARE CLEAR TO AUSCULTATION BILATERALLY. GOOD MOVEMENT OF AIR . HEART:S1, S2 IN A REGULAR RATE AND RHYTHM. NO SIGNIFICANT MURMURS, RUBS OR GALLOPS NOTED . ASSESSMENTS CERVICALGIA - M54.2 (PRIMARY) TREATMENT CERVICALGIA REFILL TIZANIDINE HCL TABLET, 2 MG, 1 TO 2 TABLET NEEDED, ORALLY FOR SPASMS AND PAIN, Q6H PRN MDD4, 30 DAY(S), 45, REFILLS 2 PROCEDURE CODES FA211 ESTABILISHED PATIENT [facility] CHARGE DISPOSITION & COMMUNICATION FOLLOW UP 3 MONTHS ELECTRONICALLY SIGNED BY MAUDE COONEY ON 10/22/2018 AT 03:06 PM EDT DISCLAIMER : THIS IS A VISIT SUMMARY EXTRACTED FROM THE [employer] CHART. IT IS NOT A COPY OF THE [employer] PROGRESS NOTE. EBONI
== END ==
LOC: M PAIN 13:30
PROVIDERS: ATTEND Nurse Practitioner Family
DX: M54.2 Cervicalgia (principal); G89.29 Other chronic pain; E03.9 Hypothyroidism, unspecified; G25.0 Essential tremor; E78.00 Pure hypercholesterolemia, unspecified; M06.9 Rheumatoid arthritis, unspecified; J45.909 Unspecified asthma, uncomplicated; I10 Essential (primary) hypertension; G47.30 Sleep apnea, unspecified; F41.9 Anxiety disorder, unspecified; E66.01 Morbid (severe) obesity due to excess calories; Z68.41 Body mass index [BMI] 40.0-44.9, adult; Z79.51 Long term (current) use of inhaled steroids; Z79.899 Other long term (current) drug therapy; Z88.1 Allergy status to other antibiotic agents; Z88.5 Allergy status to narcotic agent; Z88.6 Allergy status to analgesic agent; Z88.8 Allergy status to other drugs, medicaments and biological substances; Z91.041 Radiographic dye allergy status; Z86.79 Personal history of other diseases of the circulatory system; Z87.891 Personal history of nicotine dependence

== ENCOUNTER → 2019-02-03 | Outpatient (REF) | payer MEDICARE ==
[2019-02-03 12:47] LABS: HEMATOCRIT 33.4 % (36.0-47.0); MEAN CORPUSCULAR HEMOGLOBIN 35.5 pg (27.0-33.0); MEAN CORPUSCULAR HGB CONC 32.9 g/dl (32.0-36.5); MEAN CORPUSCULAR VOLUME 107.7 fl (80.0-96.0); PLATELET COUNT, AUTOMATED 437 10^3/uL (150-450); WHITE BLOOD COUNT 8.9 10^3/uL (4.0-10.0)
[2019-02-03 12:58] LABS: ALBUMIN 3.1 GM/DL (3.2-5.2); BILIRUBIN,TOTAL 0.3 MG/DL (0.2-1.0); CALCIUM LEVEL 9.4 MG/DL (8.8-10.2); CHOLESTEROL RISK RATIO 2.685 (<5); CREATININE FOR GFR 1.21 MG/DL (0.55-1.30); GLOMERULAR FILTRATION RATE 45.1 (>32); MAGNESIUM LEVEL 2.3 MG/DL (1.8-2.4); POTASSIUM SERUM 4.3 MEQ/L (3.5-5.1); THYROID STIMULATING HORMONE 4.95 uIU/ML (0.358-3.740); TOTAL PROTEIN 7.4 GM/DL (6.4-8.2)
== END ==
LOC: M LABDRAW1 11:36
PROVIDERS: ATTEND Internal Medicine
DX: D64.9 Anemia, unspecified (principal); E78.00 Pure hypercholesterolemia, unspecified; I10 Essential (primary) hypertension; E03.9 Hypothyroidism, unspecified

== ENCOUNTER → 2019-05-06 | Outpatient (REF) | payer MEDICARE ==
[~2019-05-06] MED LIST changes: +NORT10CA2 PO; +SENN-53 PO; -SENN1TAB40 PO
[2019-05-06 18:38] LABS: HEMATOCRIT 28.7 % (36.0-47.0); MEAN CORPUSCULAR HGB CONC 31.4 g/dl (32.0-36.5); MEAN CORPUSCULAR VOLUME 108.3 fl (80.0-96.0); PLATELET COUNT, AUTOMATED 478 10^3/uL (150-450); RED BLOOD COUNT 2.65 10^6/uL (4.00-5.40); WHITE BLOOD COUNT 8.9 10^3/uL (4.0-10.0)
[2019-05-06 18:44] LABS: ALBUMIN 2.6 GM/DL (3.2-5.2); ALT/SGPT 15 U/L (12-78); BILIRUBIN,TOTAL 0.3 MG/DL (0.2-1.0); BLOOD UREA NITROGEN 17 MG/DL (7-18); CALCIUM LEVEL 8.6 MG/DL (8.8-10.2); CARBON DIOXIDE LEVEL 27 MEQ/L (21-32); CHLORIDE LEVEL 105 MEQ/L (98-107); GLOMERULAR FILTRATION RATE > 60.0 (>32); GLUCOSE, FASTING 113 MG/DL (70-100); POTASSIUM SERUM 4.2 MEQ/L (3.5-5.1); SODIUM LEVEL 139 MEQ/L (136-145); TOTAL PROTEIN 7.3 GM/DL (6.4-8.2)
== END ==
LOC: M SFHCPLAZ 15:14
PROVIDERS: ATTEND Internal Medicine
DX: D64.9 Anemia, unspecified (principal); I10 Essential (primary) hypertension; E03.9 Hypothyroidism, unspecified
CPT/HCPCS: 36415; 80053; 83735; 84443; 85027; G0463

== ENCOUNTER 2019-05-08 18:27 | Emergency (ER) | payer MEDICARE ==
[~2019-05-08] VITALS: Ht 160 cm; Wt 79.5 kg
[~2019-05-08 18:27] MED LIST changes: -NORT10CA2 PO
[2019-05-08] MEDS ORDERED: NORT10CA2 PO (18:51)
[2019-05-08] MEDS ORDERED: fentaNYL 100 MCG/2 ML INJECTION (J3010) IV ONE (20:30)
--- NOTE | 2019-05-08 23:11 | REPVR ---
PROCEDURE INFORMATION: Exam: CT Cervical Spine Without Contrast Exam date and time: 05/08/2019 10:40 PM Age: 83 years old Clinical history: Injury or trauma; Fall; Initial encounter; Blunt trauma TECHNIQUE: Imaging protocol: Computed tomography images of the cervical spine without contrast. Radiation optimization: All CT scans at this facility use at least one of these dose optimization techniques: automated exposure control; mA and/or kV adjustment per patient size (includes targeted exams where dose is matched to clinical indication); or iterative reconstruction. COMPARISON: No relevant prior studies available. FINDINGS: Vertebrae: No acute fracture. Normal alignment. C2-C3: Degenerative changes of apophyseal joints with no significant spinal or foraminal stenosis. C3-C4: Degenerative changes of apophyseal joints, right greater than left and hypertrophic changes in the right uncovertebral joints with moderate right neural foraminal stenosis. No spinal stenosis. C4-C5: Mild interspace narrowing with mild anterolisthesis and degenerative changes of apophyseal joints and no significant spinal or foraminal stenosis. C5-C6: Moderate interspace narrowing with minimal broad-based posterior osteophytes and hypertrophic changes of uncovertebral joints and to a lesser degree the right apophyseal joints. Low normal size of the right neural foramen. No spinal stenosis. C6-C7: Mild interspace narrowing with slight anterolisthesis and early degenerative changes of apophyseal joints, particularly on the right with no significant spinal or foraminal stenosis. C7-T1: Slight interspace narrowing with degenerative changes of apophyseal joints in no significant spinal or foraminal stenosis. Soft tissues: Unremarkable. Lungs: Lung apices are normal. IMPRESSION: 1. Multilevel degenerative changes with moderate right neural foraminal stenosis at C3-C4. Otherwise, no spinal or significant foraminal stenosis. 2. No acute fracture or subluxation. Electronically signed by: Williams Sanchez On 05/08/2019 23:11:11 PM
--- NOTE | 2019-05-08 23:13 | REPVR ---
PROCEDURE INFORMATION: Exam: CT Head Without Contrast Exam date and time: 05/08/2019 10:40 PM Age: 83 years old Clinical history: Injury or trauma; Fall; Initial encounter; Blunt trauma (contusions or hematomas); Consciousness not specified TECHNIQUE: Imaging protocol: Computed tomography of the head without contrast. Radiation optimization: All CT scans at this facility use at least one of these dose optimization techniques: automated exposure control; mA and/or kV adjustment per patient size (includes targeted exams where dose is matched to clinical indication); or iterative reconstruction. COMPARISON: No relevant prior studies available. FINDINGS: Brain: There is mild prominence of the peripheral sulci. Ventricles: Normal. No ventriculomegaly. Bones/joints: Unremarkable. No acute fracture. Sinuses: Minimal ethmoid sinus mucosal thickening. Mastoid air cells: Visualized mastoid air cells are well aerated. Soft tissues: Unremarkable. IMPRESSION: 1. Mild atrophy. 2. Otherwise negative noncontrast head CT. Electronically signed by: Williams Sanchez On 05/08/2019 23:12:29 PM
[2019-05-09 00:06] VITALS: BP 148/70
== END 2019-05-09 00:41 | disposition home or self-care (01) ==
LOC: M ED 18:27 → EDBD 18:27 → M ED 05-09 00:41
DX: M54.2 Cervicalgia (principal); Z79.899 Other long term (current) drug therapy; Z88.1 Allergy status to other antibiotic agents; Z88.5 Allergy status to narcotic agent; Z88.8 Allergy status to other drugs, medicaments and biological substances
CPT/HCPCS: 70450; 72125; 96374; 99284; J3010

== ENCOUNTER 2019-06-01 15:59 | Inpatient (IN) | payer MEDICARE ==
[~2019-06-01] VITALS: Ht 154.9 cm; Wt 70.1 kg
[~2019-06-01 15:59] MED LIST changes: +NORT10CA2 PO
[2019-06-01] MEDS ORDERED: BUDE0.5S6 INH (16:08)
[2019-06-01] MEDS ORDERED: DULE200A INH (16:45)
[2019-06-01] MEDS ORDERED: ALBU83IN INH (16:45)
[2019-06-01] MEDS ORDERED: METO1TAB32 PO (16:45)
[2019-06-01] MEDS ORDERED: oxygen (16:45)
--- NOTE | 2019-06-01 17:04 | REP ---
Portable chest x-ray: Single view. History: Dyspnea and cough. Comparison chest x-ray: January 08, 2018. Findings: EKG electrodes and oxygen delivery tubing are seen. There is coarse linear plate-like atelectasis obliquely oriented overlying the right hilar region. There is increased density behind the heart in the left lower lobe as well consistent with coarse plate-like atelectasis in this location. Heart is not enlarged. Pulmonary vasculature is not increased. No acute bony abnormality is appreciated. Impression: Coarse bibasilar discoid atelectatic changes. Otherwise no acute disease. Electronically Signed by Uriel Gilman MD 06/01/2019 04:55 P
[2019-06-01 17:15] LABS: VENOUS BASE EXCESS 8.2 (-2.0-2.0); VENOUS HCO3 34.4 MEQ/L (23.0-27.0); VENOUS PARTIAL PRESSURE CO2 55.7 mmHg (38.0-50.0); VENOUS PH 7.408 UNITS (7.330-7.430); VENOUS STANDARD HCO3 31.6 MEQ/L; VENOUS TOTAL CO2 36.1 MEQ/L (24.0-28.0)
[2019-06-01 17:22] LABS: BASO % 0.4 % (0.0-1.0); EOS # 0.1 10^3/uL (0.0-0.5); HEMATOCRIT 33.1 % (36.0-47.0); HEMOGLOBIN 10.1 g/dl (12.0-15.5); LYMPH # 1.4 10^3/uL (1.5-5.0); LYMPH % 13.2 % (24.0-44.0); MEAN CORPUSCULAR HGB CONC 30.5 g/dl (32.0-36.5); MEAN CORPUSCULAR VOLUME 108.2 fl (80.0-96.0); MONO # 0.8 10^3/uL (0.0-0.8); MONO % 7.7 % (0.0-5.0); NEUTROPHILS # 8.1 10^3/uL (1.5-8.5); PLATELET COUNT, AUTOMATED 422 10^3/uL (150-450); RED BLOOD COUNT 3.06 10^6/uL (4.00-5.40); WHITE BLOOD COUNT 10.5 10^3/uL (4.0-10.0)
[2019-06-01 17:52] LABS: ALBUMIN 2.8 GM/DL (3.2-5.2); ALT/SGPT 11 U/L (12-78); BILIRUBIN,DIRECT < 0.1 MG/DL (0.0-0.2); BILIRUBIN,TOTAL 0.2 MG/DL (0.2-1.0); BLOOD UREA NITROGEN 24 MG/DL (7-18); CARBON DIOXIDE LEVEL 34 MEQ/L (21-32); CHLORIDE LEVEL 95 MEQ/L (98-107); CK-MB VALUE MASS < 1.0 NG/ML (<3.6); CPK CREATINE PHOSPHOKINASE 73 U/L (26-192); GLOMERULAR FILTRATION RATE 41.4 (>32); GLUCOSE, FASTING 90 MG/DL (70-100); MB/CK RELATIVE INDEX 1.37 (< OR =4); NT-PRO BNP 169 PG/ML (<450); POTASSIUM SERUM 4.3 MEQ/L (3.5-5.1); SODIUM LEVEL 138 MEQ/L (136-145); THYROID STIMULATING HORMONE 0.841 uIU/ML (0.358-3.740); THYROXINE (T4) 12.7 UG/DL (4.5-12.0); TOTAL PROTEIN 7.9 GM/DL (6.4-8.2); TROPONIN I < 0.02 NG/ML (< 0.10)
[2019-06-01] MEDS ORDERED: MOM 30ML SUSPENSION UDC PO PRN (19:15)
[2019-06-01] MEDS ORDERED: MAALOX 30 ML SUSP *UDC PO PRN (19:15)
[2019-06-01] MEDS ORDERED: OYST1TAB PO (19:56)
[2019-06-01] MEDS ORDERED: XALA0.007 OU (19:56)
[2019-06-01] MEDS ORDERED: VITA200015 PO (19:56)
--- NOTE | 2019-06-01 19:57 | REPVR ---
PROCEDURE INFORMATION: Exam: CT Head Without Contrast Exam date and time: 06/01/2019 7:24 PM Age: 84 years old Clinical indication: Other: General weakness TECHNIQUE: Imaging protocol: Computed tomography of the head without contrast. Radiation optimization: All CT scans at this facility use at least one of these dose optimization techniques: automated exposure control; mA and/or kV adjustment per patient size (includes targeted exams where dose is matched to clinical indication); or iterative reconstruction. COMPARISON: CT Head without contrast 05/08/2019 10:22 PM FINDINGS: Brain: Global cerebral atrophy is consistent with patient's age. Decreased attenuation within the white matter tracts of both cerebral hemispheres is nonspecific but typically seen with small vessel disease/chronic white matter ischemic changes of aging. No intracranial hemorrhage or mass effect. Ventricles: Unremarkable. No ventriculomegaly. Bones/joints: Unremarkable. No acute fracture. Sinuses: Air-fluid level within the right maxillary sinus. This may be seen with acute sinusitis as well as changes associated with facial trauma. Correlate clinically. Mastoid air cells: Visualized mastoid air cells are well aerated. Soft tissues: Unremarkable. IMPRESSION: 1. No acute intracranial abnormality. 2. Air-fluid level within the right maxillary sinus. This may be seen with acute sinusitis as well as changes associated with facial trauma. Correlate clinically. Electronically signed by: Denver Herman On 06/01/2019 19:56:32 PM
[2019-06-01] MEDS ORDERED: TORS20TA2 PO ×2 (19:59)
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
[2019-06-01] MEDS ORDERED: SENOKOT S TAB PO PRN (20:30)
--- NOTE | 2019-06-01 20:45 | REPVR ---
PROCEDURE INFORMATION: Exam: CT Cervical Spine Without Contrast Exam date and time: 06/01/2019 7:24 PM Age: 84 years old Clinical indication: Weakness TECHNIQUE: Imaging protocol: Computed tomography images of the cervical spine without contrast. Radiation optimization: All CT scans at this facility use at least one of these dose optimization techniques: automated exposure control; mA and/or kV adjustment per patient size (includes targeted exams where dose is matched to clinical indication); or iterative reconstruction. COMPARISON: CT Spine,cervical w/o contrast 05/08/2019 10:22 PM FINDINGS: Vertebrae: Severe degenerative disc disease and facet arthrosis is present throughout the cervical spine. There is minimal anterolisthesis of C2, C3 and C4, likely degenerative. No fracture is identified. Discs/Spinal canal/Neural foramina: Mild bony spinal stenosis is present at C5-C6 and C6-C7. Moderate severe neural foraminal bony stenosis is present on the right at C3-C4. There is mild to moderate neural foraminal bony encroachment bilaterally at C5-C6. Soft tissues: Calcification/ossification is present within the posterior lower neck soft tissues adjacent to the C7 spinous process consistent with old bone and/or soft tissue injury. Sinuses: Opacification and air fluid level within the right maxillary sinus may be seen with acute sinusitis as well as secondary to maxillofacial trauma. No fracture of the right maxilla is seen; however, the entire right maxilla and maxillary sinus are not visualized on this examination. Tiny mucus retention cyst within the left maxillary sinus. Mastoid air cells: Minimal effusions within the dependent right mastoid air cells. Lungs: Lung apices are clear. IMPRESSION: 1. No acute fracture. 2. Degenerative spondylosis of the cervical spine. 3. Air-fluid level within the right maxillary sinus, which may be seen with acute sinusitis, as well as in the setting of maxillofacial trauma. Electronically signed by: Denver Herman On 06/01/2019 20:45:15 PM
--- NOTE | 2019-06-01 21:22 | ECGEPIP ---
[facility] - ED Test Date: 2019-06-01 Pat Name: STEFANO ROLDAN Department: Room: - Gender: Female Log Rafter: GABRIELA : 1935 Requested By: HILARY Cain Order Number: [id number] Reading MD: Jerson Sahu Measurements Intervals [place] Rate: 90 P: 1 PA: 138 QRS: -8 QRSD: 85 T: 15 QT: 381 QTc: 468 Interpretive Statements SINUS RHYTHM POSSIBLE INCOMPLETE RIGHT BUNDLE BRANCH BLOCK POSSIBLE PRIOR INFERIOR INFARCT SIMILAR TO 01/08/18 Electronically Signed on 06-01-2019 21:21:54 EST by Jerson Sahu
[2019-06-01] MEDS: ALBUTEROL SULFATE 2.5 MG/0.5 ML INH NEB SOLN INH SCH (21:56)
[2019-06-01] MEDS: BUDESONIDE 0.5 MG/2 ML INHALATION SUSPENSION INH SCH (21:56)
[2019-06-01] MEDS: VITAMIN D 1,000 INTERNATIONAL UNITS TABLET PO SCH ×2 (22:00→22:39)
[2019-06-01] MEDS: NORTRIPTYLINE 10 MG CAP PO SCH (22:40)
[2019-06-01] MEDS: OYSTER SHELL CALCIUM 500 MG TAB PO SCH (22:40)
[2019-06-01] MEDS: DOCUSATE SODIUM 100 MG CAP PO SCH (22:40)
[2019-06-01] MEDS: PRIMIDONE 250 MG TAB PO SCH (22:41)
[2019-06-02] VITALS (7 sets, daily range): BP systolic 111–128; BP diastolic 66–79
[2019-06-02] MEDS: ACETAMINOPHEN TAB 650MG DOSE (2X325MG) PO PRN ×3 (03:11→22:31)
[2019-06-02 05:56] LABS: HEMATOCRIT 29.9 % (36.0-47.0); HEMOGLOBIN 9.1 g/dl (12.0-15.5); MEAN CORPUSCULAR HEMOGLOBIN 32.6 pg (27.0-33.0); MEAN CORPUSCULAR HGB CONC 30.4 g/dl (32.0-36.5); MEAN CORPUSCULAR VOLUME 107.2 fl (80.0-96.0); PLATELET COUNT, AUTOMATED 395 10^3/uL (150-450); RED BLOOD COUNT 2.79 10^6/uL (4.00-5.40); WHITE BLOOD COUNT 9.1 10^3/uL (4.0-10.0)
[2019-06-02 06:21] LABS: CALCIUM LEVEL 9.6 MG/DL (8.8-10.2); CREATININE FOR GFR 1.35 MG/DL (0.55-1.30); GLOMERULAR FILTRATION RATE 39.7 (>32); MAGNESIUM LEVEL 2.8 MG/DL (1.8-2.4); POTASSIUM SERUM 4.1 MEQ/L (3.5-5.1)
[2019-06-02] MEDS: ALBUTEROL SULFATE 2.5 MG/0.5 ML INH NEB SOLN INH SCH ×2 (07:41→20:48)
[2019-06-02] MEDS: BUDESONIDE 0.5 MG/2 ML INHALATION SUSPENSION INH SCH ×2 (07:42→20:45)
[2019-06-02] MEDS: METOPROLOL SUCC *XL* 25MG TAB (TopROL *XL*) PO SCH (07:57)
[2019-06-02] MEDS: NORTRIPTYLINE 10 MG CAP PO SCH ×2 (07:58→21:00)
[2019-06-02] MEDS: PRIMIDONE 250 MG TAB PO SCH ×3 (07:58→21:40)
[2019-06-02] MEDS: ATORVASTATIN 20 MG TAB PO SCH (07:58)
[2019-06-02] MEDS: sulfaSALAzine 500 MG TABEC PO SCH (07:59)
[2019-06-02] MEDS: LEVOTHYROXINE 50MCG TABLET (0.05MG) PO SCH (07:59)
[2019-06-02] MEDS: DOCUSATE SODIUM 100 MG CAP PO SCH ×2 (07:59→21:00)
[2019-06-02] MEDS: SPIRONOLACTONE 25 MG TAB PO SCH (07:59)
[2019-06-02] MEDS: OYSTER SHELL CALCIUM 500 MG TAB PO SCH ×2 (08:00→21:41)
[2019-06-02] MEDS: LATANOPROST 0.005% OPHTH SOLN 2.5 ML OU SCH (08:00)
[2019-06-02] MEDS ORDERED: TORSEMIDE 20 MG TAB PO SCH (09:00)
[2019-06-02 09:08] LABS: C REACTIVE PROTEIN QUANTITATIV 8.92 MG/DL (0.00-0.30)
--- NOTE | 2019-06-02 09:57 | IPNPDOC ---
Text Note Date of Service The patient was seen on 06/02/19. NOTE SUBJECTIVE: Patient was seen at bedside this morning. She complains of resting tremor which her brother also has. She denies weakness and expresses confusion regarding this diagnosis, but does admit to knees buckling within the last three days. Pt is more concerned about her tremor and specific difficulties walking. She could not describe the nature of this difficulty. 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 She has a history of falls. Pt states that she has followed with Dr. Delgado in [place] and Dr. Sanchez in [place] regarding her tremor and received botulinum injections, but that they have not worked up her tremor or weakness. Pt has no further complaints at this time. OBJECTIVE: VITALS: Please see below. GENERAL: Pt appears stated age and is lying in bed in no acute distress. HEENT: Normocephalic. Scab present at superior parietal scalp with no apparent bleeding or purulence. Mucus membranes dry. CARDIOVASCULAR: Regular rate and rhythm. No murmurs, rubs, or gallops. PULMONARY: Rhonchi present in b/l upper lobes. No wheezing or rales. EXTREMITIES: Mild edema of right ankle. Pulses 2+ b/l in upper and lower extremities. NEUROLOGICAL: CNII-XII intact. No pronator drift. [id number] showed mild dysmetria. Elbow flexion 5/5 b/l. Elbow extension 5/5 b/l. Wrist extension 5/5 b/l. Finger abduction 5/5 b/l. 3rd finger DIP flexion 5/5 b/l. Hip flexion 5/5 b/l. Knee extension 5/5 b/l. Dorsiflexion 5/5 b/l. Great toe extension 0/5 b/l. Plantarflexion 5/5 b/l. Biceps reflex 2/4 b/l. Triceps reflex 1/4 b/l. Patellar reflex 0/4 b/l. Achilles reflex 1/4 b/l. Babinski sign negative. Gait analysis deferred to PT/OT evaluation (see below). PSYCHIATRIC: Pt appears sad and upset. Full affect. Insight is poor. Pt is cooperative answers questions appropriately. IMAGIN. Head CT without contrast, from report: "No acute intracranial abnormality. Air-fluid level within the right maxillary sinus. This may be seen with acute sinusitis as well as changes associated with facial trauma. Correlate clinically." 2. Cervical spine CT without contrast, from report: "No acute fracture. Degenerative spondylosis of the cervical spine. Air-fluid level within the right maxillary sinus, which may be seen with acute sinusitis, as well as in the setting of maxillofacial trauma." 3. Chest x-rays, PA and lateral, from report: "Left lower lobe infiltrate." ASSESSMENT: Bonnie Ball is an 84-year-old female with past history of asthma with chronic oxygen dependence, CAD, essential tremor, cervical dystonia, hypertension, and obesity who presented to the [facility] emerg ency department complaining of knees buckling and was admitted for workup of bilateral upper and lower extremity weakness. PLAN: 1. Generalized weakness, possibly secondary to deconditioning or infection. - CT head and neck revealed no putative causes. Vitamin B12 level came back as 405. - Blood and urine cultures pending. - Ordered PT and OT evaluations. - Continue fall precautions. 2. Left lower lobe infiltrates, likely secondary to pneumonia, and possible 2/2 UTI - Found on PA and lateral chest x-rays performed today. - Ordered procalcitonin. - UA pending - Started levofloxacin 750mg IV q48h for 5 days (renal dosing per calculated creatinine clearance of 40). 3. Mild leukocytosis, improved, likely secondary to pneumonia (see above). - CBC this morning showed white count within normal limits. No fever observed at any point during the hospital course. - Blood culture pending. - Urinalysis was positive. Reflex culture ordered. 4. Acute kidney injury - BUN and creatinine trending up. Pt appears dehydrated. - Discontinue torsemide. Ordered normal saline 500mL IV at 80mL/hr. 5. Essential tremor, chronic - Evaluated and managed outpatient by a neurologist on an outpatient basis. - Medication list review was negative for those which may exacerbate tremors. - Continue primidone. 6. Chronic asthma - Continue supplemental oxygen 2L by nasal cannula. - Continue albuterol and budesonide BID. 7. Coronary artery disease s/p PCI - Continue atorvastatin and metoprolol. 8. Scalp wound - Continue to monitor and care for as needed. 9. History of falls - Pt has a documented history of multiple falls and peripheral neuropathy. Per subjective findings, her knees have been buckling for the past 2 days. She states that she cannot move her toes, which is concerning for her ability to safely ambulate. She lives alone in her home with visiting PT. - PT/OT evaluation ordered (see above) to determine pt's functional status and possible need for additional services. 10. Chronic hypertension - Blood pressure has been well-controlled. Continue metoprolol. 11. Hypothyroidism - Continue levothyroxine. 12. Obesity - Complicates care. 13. DVT prophylaxis: Continue sequentials. DISPOSITION: Discharge pending workup, possibly home with services or to a halfway. VS,Fishbone, I+O VS, Fishbone, I+O Laboratory Tests 06/01/19 17:05 06/02/19 05:29 Vital Signs Date Time Temp Pulse Resp B/P (MAP) Pulse Ox O2 Delivery O2 Flow Rate FiO2 06/02/19 07:57 98 131/86 06/02/19 06:00 98.1 17 95 Nasal Cannula 2.0 I&O- Last 24 Hours up to 6 AM 06/02/19 05:59 Intake Total 0 ml Output Total 100 ml Balance -100 ml GME ATTESTATION GME ATTESTATION My faculty preceptor for this patient encounter was physically present during the encounter and was fully available. All aspects of the patient interview, examination, medical decision making process, and medical care plan development were reviewed and approved by the faculty preceptor. The faculty preceptor is aware and concurs with the plan as stated in the body of this note and will attest to such by his/her cosignature. ATTENDING NOTE I, Bob Gaviria, have independently examined this patient and performed my own physical exam, as well as reviewed the documentation and edited where necessary. I have discussed in detail with the resident / student the findings and plan of treatment as documented by the resident / student and edited their note. I agree with their findings and treatment plan and have edited their documentation. I will continue to follow the patient during this hospital stay. JC LAWSON OMS-III Jun 02, 2019 09:57 BOB GAVIRIA MD Jun 02, 2019 15:29
--- NOTE | 2019-06-02 10:26 | REP ---
CHEST, TWO VIEWS: Two views of the chest are performed and compared prior studies, most recent of which is 06/01/2019. There is left lower lobe infiltrate. I do not see acute infiltrate on the right. Heart does not appear to be significantly enlarged. There is calcification and tortuosity of the thoracic aorta. The mediastinal silhouette is unchanged. There are mild degenerative changes of the spine. IMPRESSION: Left lower lobe infiltrate. Electronically Signed by Evgeny Mccracken MD 06/02/2019 07:34 P
[2019-06-02] MEDS: NS 500 ML IV SCH ×3 (10:50→23:30)
[2019-06-02] MEDS ORDERED: LevoFLOXacin IV 750 MG in IV 1 EA IV SCH (11:00)
[2019-06-02] MEDS: VITAMIN D 1,000 INTERNATIONAL UNITS TABLET PO SCH (21:40)
[2019-06-03] MEDS: NS 500 ML IV SCH (05:13)
[2019-06-03] MEDS: ACETAMINOPHEN TAB 650MG DOSE (2X325MG) PO PRN (05:21)
[2019-06-03] MEDS: DULERA INH SCH ×2 (08:00→20:58)
[2019-06-03] MEDS: ALBUTEROL SULFATE 2.5 MG/0.5 ML INH NEB SOLN INH SCH ×2 (08:01→20:33)
[2019-06-03] MEDS: BUDESONIDE 0.5 MG/2 ML INHALATION SUSPENSION INH SCH ×2 (08:01→20:33)
[2019-06-03] MEDS ORDERED: TORSEMIDE 20 MG TAB PO SCH (09:00)
[2019-06-03] MEDS: ACETAMINOPHEN 500 MG TAB PO PRN (09:01)
[2019-06-03] MEDS: ATORVASTATIN 20 MG TAB PO SCH (09:02)
[2019-06-03] MEDS: METOPROLOL SUCC *XL* 25MG TAB (TopROL *XL*) PO SCH (09:02)
[2019-06-03] MEDS: OYSTER SHELL CALCIUM 500 MG TAB PO SCH ×2 (09:02→21:38)
[2019-06-03] MEDS: sulfaSALAzine 500 MG TABEC PO SCH (09:02)
[2019-06-03] MEDS: NORTRIPTYLINE 10 MG CAP PO SCH ×2 (09:02→21:38)
[2019-06-03] MEDS: PRIMIDONE 250 MG TAB PO SCH ×3 (09:03→21:38)
[2019-06-03] MEDS: LEVOTHYROXINE 50MCG TABLET (0.05MG) PO SCH (09:03)
[2019-06-03] MEDS: SPIRONOLACTONE 25 MG TAB PO SCH ×2 (09:03→09:56)
[2019-06-03] MEDS: LATANOPROST 0.005% OPHTH SOLN 2.5 ML OU SCH (09:56)
[2019-06-03 10:00] VITALS: BP 125/64
--- NOTE | 2019-06-03 10:53 | IPNPDOC ---
Text Note Date of Service The patient was seen on 06/03/19. NOTE SUBJECTIVE: Patient was seen at bedside this morning. She appeared teary and in moderate distress. She complained of lower back pain which she attributed to positioning in her hospital bed. She also complained that her acetaminophen order was not sufficient for her pain level, and that she normally takes 1000mg q6h PRN at home. Pt also complained that she had 4 bowel movements yesterday and stated that she would like her scheduled docusate changed to PRN. Further history offered by the patient: she states that she has had approximately 25 falls within the past 2 years. She has hired someone to come into her home to clean every 2 weeks, and she has her meals delivered. Pt has no further complaints at this time. OBJECTIVE: VITALS: Please see below. GENERAL: Pt appears stated age and is lying in bed in moderate distress. HEENT: Normocephalic. Scab present at superior parietal scalp with no apparent bleeding or purulence. CARDIOVASCULAR: Regular rate and rhythm. No murmurs, rubs, or gallops. PULMONARY: Rhonchi present in b/l upper lobes. No wheezing or rales. PSYCHIATRIC: Pt appears sad and upset. Full affect. Insight is poor. Pt is aggressive but cooperative and answers questions appropriately. ASSESSMENT: Bonnie Ball is an 84-year-old female with past history of asthma with chronic oxygen dependence, CAD, essential tremor, cervical dystonia, hypertension, and obesity who presented to the [facility] emergency department complaining of knees buckling and was admitted for workup of bilateral upper and lower extremity weakness. PLAN: 1. Generalized weakness, possibly secondary to deconditioning or infection. - CT head and neck revealed no putative causes. - Blood culture showed no growth after 24 hours. Urine culture pending. - PT evaluation stated pt is "She presents below her baseline function, requiring contact guard assist for transfers and unable to progress gait this date due to fatigue in bilateral lower extremities. She will benefit from continued skilled PT during her acute care stay in order to progress transfers and gait. Discharge not safe for discharge due to decreased independence with functional mobility compared to baseline." OT evaluation pending. - Continue fall precautions. Change docusate order to PRN. 2. Pneumonia, possibly viral - Left lower lobe infiltrates found on PA and lateral chest x-rays performed yesterday. Procalcitonin returned within normal limits at 0.09, but CRP was elevated at 8.92. Mild leukocytosis is still resolved and pt continues to be afebrile. See blood culture result above. Rhonchi still present b/l. - She received levofloxacin 750mg IV yesterday (1 dose), but will start PO tomorrow because she is tolerating oral intake. She is still having renal dosing per calculated creatinine clearance of 40, so her dosing is q48h. Tomorrow will be dose 2/5. - Monitor for resolution of symptoms. 3. UTI - UA was positive for leukocyte esterase, white blood cells too numerous to count, bacteria, blood, and sediment. Urine culture pending. - Levofloxacin for pneumonia coverage (see above) will cover her UTI as well. - Monitor for resolution of symptoms. 4. Lower back pain, likely musculoskeletal per pt positioning - Increase acetaminophen to home dose of 1000mg PO q6h PRN pain. - Ordered heating pad. Checking back one hour later, pt reported improvement. 5. Acute kidney injury, resolving - BUN and creatinine trending up and creatinine is now high at 1.35. Pt appears hydrated. - Discontinue IV. 6. Essential tremor, chronic - Evaluated and managed outpatient by a neurologist on an outpatient basis. - Medication list review was negative for those which may exacerbate tremors. - Continue primidone. 7. Chronic asthma - Continue supplemental oxygen 2L by nasal cannula. - Continue albuterol and budesonide BID. 8. Coronary artery disease s/p PCI - Continue atorvastatin and metoprolol. 9. Scalp wound - Continue to monitor and care for as needed. 10. History of falls - Pt has a documented history of multiple falls and peripheral neuropathy. Per subjective findings, her knees have been buckling, and she has had approximately 25 falls in the past 2 years. She states that she cannot move her toes, which is concerning for her ability to safely ambulate. She lives alone in her home with visiting PT, though she has been unable to participate in her last 2 sessions due to weakness. She has her meals delivered, and someone cleans her house every two weeks. These findings are highly concerning for her ability to safely live in her home. - PT/OT evaluations (see above). PT will continue to work with her. - Patient & Family Services involvement requested and appreciated. 11. Chronic hypertension - Blood pressure has been well-controlled. Continue metoprolol. 12. Hypothyroidism - Continue levothyroxine. 13. Obesity - Complicates care. 14. DVT prophylaxis: Continue sequentials. DISPOSITION: Likely discharge to rehab tomorrow with a prescription to finish antibiotics course. HOSPITALIST ATTENDING NOTE: I have independently interviewed and examined the patient at the bedside, agree with the physical findings and discussed the overall management plan with my resident physician as documented above. VS,Fishbone, I+O VS, Fishbone, I+O Vital Signs Date Time Temp Pulse Resp B/P (MAP) Pulse Ox O2 Delivery O2 Flow Rate FiO2 06/02/19 22:00 97.1 107 18 121/70 (87) 95 Nasal Cannula 2.0 I&O- Last 24 Hours up to 6 AM 06/03/19 06:00 Intake Total 900 ml Output Total 800 ml Balance 100 ml GME ATTESTATION GME ATTESTATION My faculty preceptor for this patient encounter was physically present during the encounter and was fully available. All aspects of the patient interview, examination, medical decision making process, and medical care plan development were reviewed and approved by the faculty preceptor. The faculty preceptor is aware and concurs with the plan as stated in the body of this note and will attest to such by his/her cosignature. JC LAWSON-III Jun 03, 2019 08:17 FAWAD MILLER MD Jun 03, 2019 13:49
[2019-06-03] MEDS: INCRUSE ELLIPTA 62.5MCG (PATIENT'S OWN MED) INH SCH (12:00)
[2019-06-03 14:00] VITALS: BP 135/80
[2019-06-03] MEDS: VITAMIN D 1,000 INTERNATIONAL UNITS TABLET PO SCH (21:38)
[2019-06-03] MEDS: DOCUSATE SODIUM 100 MG CAP PO PRN (21:47)
[2019-06-03 22:00] VITALS: BP 137/80
[2019-06-04 06:00] VITALS: BP 140/83
[2019-06-04] MEDS ORDERED: LevoFLOXacin 750 MG TABLET PO SCH (06:00)
[2019-06-04 06:20] LABS: HEMATOCRIT 29.7 % (36.0-47.0); HEMOGLOBIN 9.1 g/dl (12.0-15.5); MEAN CORPUSCULAR HGB CONC 30.6 g/dl (32.0-36.5); MEAN CORPUSCULAR VOLUME 107.6 fl (80.0-96.0); PLATELET COUNT, AUTOMATED 361 10^3/uL (150-450); RED BLOOD COUNT 2.76 10^6/uL (4.00-5.40); WHITE BLOOD COUNT 11.6 10^3/uL (4.0-10.0)
[2019-06-04 06:39] LABS: CALCIUM LEVEL 9.7 MG/DL (8.8-10.2); CREATININE FOR GFR 1.01 MG/DL (0.55-1.30); GLOMERULAR FILTRATION RATE 55.5 (>32); POTASSIUM SERUM 3.9 MEQ/L (3.5-5.1)
[2019-06-04 07:22] LABS: C REACTIVE PROTEIN QUANTITATIV 10.1 MG/DL (0.00-0.30)
[2019-06-04] MEDS: ALBUTEROL SULFATE 2.5 MG/0.5 ML INH NEB SOLN INH SCH ×3 (07:43→21:10)
[2019-06-04] MEDS: DULERA INH SCH ×3 (07:43→21:00)
[2019-06-04] MEDS: INCRUSE ELLIPTA 62.5MCG (PATIENT'S OWN MED) INH SCH ×3 (07:43→11:14)
[2019-06-04] MEDS: BUDESONIDE 0.5 MG/2 ML INHALATION SUSPENSION INH SCH ×3 (07:43→21:10)
[2019-06-04] MEDS ORDERED: GI COCKTAIL 50ML BTL(HYOSCYAMINE/MAALOX/LIDOCAINE VISCOUS)(1:3:1) PO ONE (08:00)
[2019-06-04] MEDS ORDERED: NITROGLYCERIN 0.4 MG SUBL TABLET SL STA (08:00)
[2019-06-04] MEDS ORDERED: NITROGLYCERIN 0.4 MG SUBL TABLET SL PRN (08:00)
[2019-06-04] MEDS: LEVOTHYROXINE 50MCG TABLET (0.05MG) PO SCH (08:52)
[2019-06-04] MEDS: TORSEMIDE 20 MG TAB PO SCH (08:53)
[2019-06-04] MEDS: sulfaSALAzine 500 MG TABEC PO SCH (08:54)
[2019-06-04] MEDS: NORTRIPTYLINE 10 MG CAP PO SCH ×2 (08:55→21:52)
[2019-06-04] MEDS: ATORVASTATIN 20 MG TAB PO SCH (08:55)
[2019-06-04] MEDS: PRIMIDONE 250 MG TAB PO SCH ×3 (08:55→21:52)
[2019-06-04] MEDS: METOPROLOL SUCC *XL* 25MG TAB (TopROL *XL*) PO SCH (08:55)
[2019-06-04] MEDS: SPIRONOLACTONE 25 MG TAB PO SCH (08:55)
[2019-06-04] MEDS: LATANOPROST 0.005% OPHTH SOLN 2.5 ML OU SCH (08:56)
[2019-06-04] MEDS: OYSTER SHELL CALCIUM 500 MG TAB PO SCH ×2 (09:00→21:51)
[2019-06-04 09:11] LABS: CK-MB VALUE MASS < 1.0 NG/ML (<3.6); CPK CREATINE PHOSPHOKINASE 49 U/L (26-192); MB/CK RELATIVE INDEX 2.04 (< OR =4); TROPONIN I < 0.02 NG/ML (< 0.10)
--- NOTE | 2019-06-04 10:10 | IPNPDOC ---
Text Note Date of Service The patient was seen on 06/04/19. NOTE SUBJECTIVE: Patient was seen at bedside this morning. She is complaining of midline central superior chest pain without radiation which began after she took her morning dose of levofloxacin. Pt states that it feels like the pill got stuck in her throat. Pt denies any other associated symptoms. Per this complaint, she is refusing to take oral levofloxacin unless it is crushed. Pt stated that she will take her next dose of oral levofloxacin if it is crushed to a powder. Pt e ndorses urinary frequency but denies dysuria and hematuria. Pt has no further complaints at this time. OBJECTIVE: VITALS: Please see below. GENERAL: Pt appears stated age and is lying in bed in no acute distress. HEENT: Normocephalic. Scab present at superior parietal scalp with no apparent bleeding or purulence. CARDIOVASCULAR: Regular rate and rhythm. No murmurs, rubs, or gallops. PULMONARY: Rhonchi present in b/l upper lobes. No wheezing or rales. PSYCHIATRIC: Full affect. Insight is poor. Pt is aggressive but cooperative and answers questions appropriately. ASSESSMENT: Bonnie Ball is an 84-year-old female with past history of asthma with chronic oxygen dependence, CAD, essential tremor, cervical dystonia, hypertension, and obesity who presented to the [facility] em ergency department complaining of knees buckling and was admitted for workup of bilateral upper and lower extremity weakness. PLAN: 1. Generalized weakness, possibly secondary to deconditioning or infection. - CT head and neck revealed no putative causes. - Blood culture showed no growth after 48 hours. Urine culture showed E. coli sensitive to current levofloxacin regimen. - OT evaluation, per report: "Pt is deconditioned and will benefit from skilled OT for intervention to optimize with ADLs and functional transfers prior to discharge home." - Continue fall precautions. 2. Pneumonia, possibly viral - Left lower lobe infiltrates found on PA and lateral chest x-rays. CRP increased from 8.92 yesterday to 10.10 today. Leukocytosis has recurred; WBC today 11.6. Pt continues to be afebrile. Rhonchi still present b/l. - Continue empiric antibiotics coverage in case of bacterial etiology. Dose 2/5 given of levofloxacin 750mg given PO today with renal dosing q48h. Per pill esophagitis, prescription will be changed so that the tablet will be crushed. Next dose due 06/06/2019. - Pulmonary toilet ordered with acapella. - Monitor for resolution of symptoms and leukocytosis. 3. UTI - Urine culture returned positive for levofloxacin-sensitive E. coli. - Levofloxacin for pneumonia coverage (see above) will cover her UTI per sensitivity. - Monitor for resolution of symptoms. 4. Pill esophagitis - Cardiac etiology of chest pain ruled out by CK-MB, CK-MB relative index, and troponin I all within normal limits. Repeat EKG this morning showed no significant change from admission EKG on 06/01/2019. Pt's subjective description of the complaint shows less likely cardiac etiology per onset and character of the pain. - GI cocktail ordered. Pt reported improvement and that the pain became a dull ache. Will continue to monitor for resolution of pain and in case of recurrence. 5. Lower back pain, resolved - Continue home dose of 1000mg PO q6h PRN pain. 6. Acute kidney injury, resolving - BUN and creatinine trending up and creatinine is now high at 1.35. Pt appears hydrated. - Discontinue IV. 7. Essential tremor, chronic - Evaluated and managed outpatient by a neurologist on an outpatient basis. - Continue primidone. 8. Chronic asthma - Continue supplemental oxygen 2L by nasal cannula. - Continue albuterol and budesonide BID. 9. Coronary artery disease s/p PCI - Continue atorvastatin and metoprolol. 10. Scalp wound - Continue to monitor and care for as needed. 11. History of falls - Pt has a documented history of multiple falls and peripheral neuropathy. Per subjective findings, her knees have been buckling, and she has had approximately 25 falls in the past 2 years. She states that she cannot move her toes, which is concerning for her ability to safely ambulate. She lives alone in her home with visiting PT, though she has been unable to participate in her last 2 sessions due to weakness. She has her meals delivered, and someone cleans her house every two weeks. These findings are highly concerning for her ability to safely live in her home. - PT and OT evaluations consistent with pt needing additional services. PT and OT will continue to work with her. - Patient & Family Services involvement requested and appreciated. Bed has been secured at [facility] for continuing services outpatient. 12. Chronic hypertension - Blood pressure has been well-controlled. Continue metoprolol. 13. Hypothyroidism - Continue levothyroxine. 14. Obesity - Complicates care. 15. DVT prophylaxis: Continue sequentials. DISPOSITION: Discharge to [facility] planned tomorrow unless workup reveals new changes. Bed there has been secured. Prescription to finish antibiotics course outpatient will be given. VS,Fishbone, I+O VS, Fishbone, I+O Laboratory Tests 06/04/19 05:21 Vital Signs Date Time Temp Pulse Resp B/P (MAP) Pulse Ox O2 Delivery O2 Flow Rate FiO2 06/04/19 08:55 107 121/69 06/04/19 06:00 97.9 18 92 Nasal Cannula 2.0 I&O- Last 24 Hours up to 6 AM 06/04/19 06:00 Intake Total 600 ml Output Total 0 ml Balance 600 ml GME ATTESTATION GME ATTESTATION My faculty preceptor for this patient encounter was physically present during the encounter and was fully available. All aspects of the patient interview, examination, medical decision making process, and medical care plan development were reviewed and approved by the faculty preceptor. The faculty preceptor is aware and concurs with the plan as stated in the body of this note and will attest to such by his/her cosignature. ATTENDING NOTE I have independently interviewed and examined the patient at the bedside. I agree with the physical findings and management plan as documented above by my Resident physician. All of the patient's concerns and questions have been addressed. JC LAWSON OMS-III Jun 04, 2019 10:10 FAWAD MILLER MD Jun 04, 2019 11:48
[2019-06-04 14:00] VITALS: BP 133/68
[2019-06-04] MEDS ORDERED: GI COCKTAIL 50ML BTL(HYOSCYAMINE/MAALOX/LIDOCAINE VISCOUS)(1:3:1) PO PRN (14:00)
[2019-06-04] MEDS: VITAMIN D 1,000 INTERNATIONAL UNITS TABLET PO SCH (21:51)
[2019-06-04] MEDS: ACETAMINOPHEN 500 MG TAB PO PRN (21:52)
[2019-06-04 22:00] VITALS: BP 142/85
[2019-06-04] MEDS: DOCUSATE SODIUM 100 MG CAP PO PRN (22:08)
--- NOTE | 2019-06-04 23:16 | ECGEPIP ---
[facility] Test Date: 2019-06-04 Pat Name: STEFANO ROLDAN Department: Room: [place] [address] Gender: Female Systems Designer: BRYAN : 1935 Requested By: FAWAD Kent Order Number: [id number] Reading MD: Phillip Buckley Measurements Intervals [place] Rate: 106 P: 22 GA: 145 QRS: -14 QRSD: 100 T: 41 QT: 343 QTc: 457 Interpretive Statements SINUS TACHYCARDIA, Probable RV conduction delay. Increased heart rate compared with 06/01/2019 Electronically Signed on 06-04-2019 23:16:28 EST by Phillip Buckley
[2019-06-05 06:00] VITALS: BP 133/74
[2019-06-05 06:37] LABS: HEMATOCRIT 28.5 % (36.0-47.0); MEAN CORPUSCULAR HEMOGLOBIN 33.7 pg (27.0-33.0); MEAN CORPUSCULAR HGB CONC 31.6 g/dl (32.0-36.5); MEAN CORPUSCULAR VOLUME 106.7 fl (80.0-96.0); PLATELET COUNT, AUTOMATED 367 10^3/uL (150-450); RED BLOOD COUNT 2.67 10^6/uL (4.00-5.40); WHITE BLOOD COUNT 8.2 10^3/uL (4.0-10.0)
[2019-06-05 07:00] LABS: CALCIUM LEVEL 9.4 MG/DL (8.8-10.2); CREATININE FOR GFR 1.15 MG/DL (0.55-1.30); GLOMERULAR FILTRATION RATE 47.7 (>32); POTASSIUM SERUM 3.9 MEQ/L (3.5-5.1)
[2019-06-05] MEDS: ALBUTEROL SULFATE 2.5 MG/0.5 ML INH NEB SOLN INH SCH (08:00)
[2019-06-05] MEDS: BUDESONIDE 0.5 MG/2 ML INHALATION SUSPENSION INH SCH (08:00)
[2019-06-05] MEDS ORDERED: NYSTATIN 100,000 UNITS/GM TOPICAL PWD 15 GM TOP SCH (09:00)
[2019-06-05] MEDS: DULERA INH SCH (09:00)
[2019-06-05] MEDS ORDERED: LEVA750T7 PO (09:46)
[2019-06-05] MEDS ORDERED: NYST1POW9 TOP (09:48)
[2019-06-05] MEDS: NORTRIPTYLINE 10 MG CAP PO SCH (09:54)
[2019-06-05] MEDS: PRIMIDONE 250 MG TAB PO SCH (09:55)
[2019-06-05] MEDS: SPIRONOLACTONE 25 MG TAB PO SCH (09:55)
[2019-06-05] MEDS: LEVOTHYROXINE 50MCG TABLET (0.05MG) PO SCH (09:55)
[2019-06-05] MEDS: TORSEMIDE 20 MG TAB PO SCH (09:55)
[2019-06-05] MEDS: OYSTER SHELL CALCIUM 500 MG TAB PO SCH (09:55)
[2019-06-05] MEDS: ATORVASTATIN 20 MG TAB PO SCH (09:55)
[2019-06-05] MEDS: sulfaSALAzine 500 MG TABEC PO SCH (09:55)
[2019-06-05 09:56] VITALS: BP 163/91
[2019-06-05] MEDS: LATANOPROST 0.005% OPHTH SOLN 2.5 ML OU SCH (09:56)
[2019-06-05] MEDS: METOPROLOL SUCC *XL* 25MG TAB (TopROL *XL*) PO SCH (09:56)
[2019-06-05] MEDS: DOCUSATE SODIUM 100 MG CAP PO PRN (09:59)
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
[2019-06-07 00:07] LABS: BODY FLUID CULTURE Not indicated. (.); LEGIONELLA ANTIGEN URINE Negative (Negative); ORGANISM ID Not indicated. (.); SPECIMEN SOURCE Urine (.); URINE STREP PNEUMONIAE ANTIGEN Negative (Negative)
== END 2019-06-05 12:28 | DRG 194 ==
LOC: M ED 15:59 → M ED INP 19:13 → ENRESERVTM 20:23 → ENRESERVDT 20:23 → M MSPAV 21:14
PROVIDERS: ADMIT Internal Medicine; ATTEND General Practice
DX: J12.9 Viral pneumonia, unspecified (principal); J96.10 Chronic respiratory failure, unspecified whether with hypoxia or hypercapnia; N39.0 Urinary tract infection, site not specified; N17.9 Acute kidney failure, unspecified; R29.6 Repeated falls; G25.0 Essential tremor; G24.3 Spasmodic torticollis; Z98.61 Coronary angioplasty status; I10 Essential (primary) hypertension; Z99.81 Dependence on supplemental oxygen; D53.9 Nutritional anemia, unspecified; E03.9 Hypothyroidism, unspecified; E66.9 Obesity, unspecified; Z90.79 Acquired absence of other genital organ(s); Z98.41 Cataract extraction status, right eye; Z98.42 Cataract extraction status, left eye; D72.829 Elevated white blood cell count, unspecified; J45.909 Unspecified asthma, uncomplicated; Z68.35 Body mass index [BMI] 35.0-35.9, adult; Z79.82 Long term (current) use of aspirin; Z79.899 Other long term (current) drug therapy; Z88.1 Allergy status to other antibiotic agents; Z88.6 Allergy status to analgesic agent; Z88.4 Allergy status to anesthetic agent; Z88.5 Allergy status to narcotic agent; Z88.8 Allergy status to other drugs, medicaments and biological substances; S00.03XD Contusion of scalp, subsequent encounter; X58.XXXD Exposure to other specified factors, subsequent encounter; G62.9 Polyneuropathy, unspecified; B96.29 Other Escherichia coli [E. coli] as the cause of diseases classified elsewhere; K20.9 Esophagitis, unspecified

== ENCOUNTER → 2019-06-09 | Outpatient (REF) ==
[~2019-06-09] MED LIST changes: -ASPI-225 PO; +ASPI81TA78 PO; +BUDE0.5S6 INH; +LEVA750T7 PO; +METO1TAB32 PO; +NYST1POW9 TOP; +OYST1TAB PO; +VITA200015 PO; +XALA0.007 OU; +oxygen
[2019-06-09 09:50] LABS: HEMOGLOBIN 8.9 g/dl (12.0-15.5); MEAN CORPUSCULAR HEMOGLOBIN 32.8 pg (27.0-33.0); MEAN CORPUSCULAR HGB CONC 30.7 g/dl (32.0-36.5); PLATELET COUNT, AUTOMATED 426 10^3/uL (150-450); RED BLOOD COUNT 2.71 10^6/uL (4.00-5.40); WHITE BLOOD COUNT 6.8 10^3/uL (4.0-10.0)
[2019-06-09 10:11] LABS: CREATININE FOR GFR 1.2 MG/DL (0.55-1.30); GLOMERULAR FILTRATION RATE 45.5 (>32); POTASSIUM SERUM 4.7 MEQ/L (3.5-5.1)
[2019-06-10 12:37] LABS: APPEARANCE, URINE CLEAR (CLEAR); BACTERIA, URINE AUTO NEGATIVE (NEGATIVE); BILIRUBIN, URINE AUTO NEGATIVE (NEGATIVE); BLOOD, URINE BLOOD NEGATIVE (NEGATIVE); COLOR, URINE YELLOW (YELLOW); GLUCOSE, URINE (UA) AUTO NEGATIVE (NEGATIVE); KETONE, URINE AUTO NEGATIVE (NEGATIVE); LEUKOCYTE ESTERASE, URINE AUTO NEGATIVE (NEGATIVE); NITRITE, URINE AUTO NEGATIVE (NEGATIVE); PROTEIN, URINE AUTO NEGATIVE (NEGATIVE); RBC, URINE AUTO 0 /HPF (0-3); SPECIFIC GRAVITY URINE AUTO 1.009 (1.002-1.035); SQUAMOUS EPITHELIAL CELL UR AU 0 /HPF (0-6); UROBILINOGEN, URINE AUTO 0.2 mg/dL (0.0-2.0); WBC, URINE AUTO 4 /HPF (0-3)
== END ==
PROVIDERS: ATTEND Family Medicine
DX: I10 Essential (primary) hypertension (principal)

== ENCOUNTER 2019-06-13 11:43 | Inpatient (IN) | payer MEDICARE ==
[~2019-06-13] VITALS: Ht 152.4 cm; Wt 78.7 kg
[2019-06-13] MEDS ORDERED: IPRATROPIUM 0.5MG/ALBUTEROL 2.5MG INH SOL UD 3ML (DUONEB)(J7620) NEB ONE (12:30)
[2019-06-13] MEDS ORDERED: NS 1,000 ML IV SCH (12:30)
[2019-06-13] MEDS ORDERED: ACETAMINOPHEN 325 MG TAB PO ONE (12:30)
[2019-06-13] MEDS ORDERED: NITR100C2 PO (12:33)
[2019-06-13] MEDS ORDERED: MILKSUS3 PO (12:33)
[2019-06-13] MEDS ORDERED: ATOR40TA75 PO (12:33)
[2019-06-13] MEDS ORDERED: ACET-683 PO ×2 (12:33)
[2019-06-13] MEDS ORDERED: SYNT100T PO (12:33)
[2019-06-13] MEDS ORDERED: BISA10SU27 PR (12:33)
[2019-06-13] MEDS ORDERED: SEAMKIT PR (12:33)
[2019-06-13 12:37] LABS: BASO % 0.3 % (0.0-1.0); EOS # 0.1 10^3/uL (0.0-0.5); EOS % 0.8 % (0.0-3.0); HEMATOCRIT 28.7 % (36.0-47.0); HEMOGLOBIN 9.3 g/dl (12.0-15.5); LYMPH # 0.3 10^3/uL (1.5-5.0); LYMPH % 2.8 % (24.0-44.0); MEAN CORPUSCULAR HEMOGLOBIN 33.9 pg (27.0-33.0); MEAN CORPUSCULAR HGB CONC 32.4 g/dl (32.0-36.5); MEAN CORPUSCULAR VOLUME 104.7 fl (80.0-96.0); MONO # 0.4 10^3/uL (0.0-0.8); MONO % 3.7 % (0.0-5.0); NEUTROPHILS # 10.1 10^3/uL (1.5-8.5); NEUTROPHILS % 91.6 % (36.0-66.0); PLATELET COUNT, AUTOMATED 404 10^3/uL (150-450); RED BLOOD COUNT 2.74 10^6/uL (4.00-5.40); WHITE BLOOD COUNT 11.1 10^3/uL (4.0-10.0)
[2019-06-13 12:52] LABS: ALT/SGPT 10 U/L (12-78); BLOOD UREA NITROGEN 19 MG/DL (7-18); CALCIUM LEVEL 9.1 MG/DL (8.8-10.2); CARBON DIOXIDE LEVEL 26 MEQ/L (21-32); CHLORIDE LEVEL 100 MEQ/L (98-107); CREATININE FOR GFR 0.94 MG/DL (0.55-1.30); GLOMERULAR FILTRATION RATE > 60.0 (>32); GLUCOSE, FASTING 96 MG/DL (70-100); POTASSIUM SERUM 4.2 MEQ/L (3.5-5.1); SODIUM LEVEL 135 MEQ/L (136-145)
[2019-06-13 12:53] LABS: BILIRUBIN,DIRECT 0.1 MG/DL (0.0-0.2); BILIRUBIN,TOTAL 0.4 MG/DL (0.2-1.0); TOTAL PROTEIN 7.4 GM/DL (6.4-8.2)
[2019-06-13 12:56] LABS: INFLUENZA A AMPLIFICATION NEGATIVE (NEGATIVE); INFLUENZA B AMPLIFICATION NEGATIVE (NEGATIVE)
[2019-06-13] MEDS ORDERED: AZITHROMYCIN INJ 500 MG, VIAL MATE ADAPTER 1 EACH in D5W 250 ML IV ONE (14:00)
--- NOTE | 2019-06-13 14:17 | REP ---
CHEST, TWO VIEWS: COMPARISON: 06/02/2019 Left lower lobe infiltrate is again seen unchanged. Right lung is unchanged in appearance. Heart and mediastinum are unchanged. IMPRESSION: Stable exam. Electronically Signed by Evgeny Mccracken MD 06/18/2019 09:43 A
[2019-06-13] MEDS ORDERED: ALBUTEROL SULFATE 2.5 MG/0.5 ML INH NEB SOLN NEB PRN (15:15)
[2019-06-13 15:35] VITALS: BP 154/84
[2019-06-13] MEDS ORDERED: BISACODYL 10 MG SUPP PR PRN (15:45)
[2019-06-13] MEDS: NS 1,000 ML IV SCH ×2 (15:59→22:48)
[2019-06-13] MEDS ORDERED: diphenhydrAMINE INJ 50MG/ML VIAL (J1200) IV PRN (16:45)
[2019-06-13] MEDS ORDERED: cefTRIAXone SOD 1 GM in D5W MINI-BAG PLUS 50 ML IV SCH ×2 (17:00→20:00)
[2019-06-13] MEDS: VANCOMYCIN HCL 1,000 MG, VIAL MATE ADAPTER 1 EACH in D5W 250 ML IV SCH (18:03)
[2019-06-13] MEDS: methylPREDNISolone INJ 40 MG/1 ML VIAL (J2920) IV SCH (18:03)
[2019-06-13] MEDS: PRIMIDONE 250 MG TAB PO SCH ×2 (18:03→21:52)
[2019-06-13] MEDS: oxyBUTYnin 5 MG TAB PO SCH ×2 (18:45→21:52)
[2019-06-13] MEDS: ALBUTEROL SULFATE 2.5 MG/0.5 ML INH NEB SOLN NEB SCH (19:54)
[2019-06-13] MEDS: FORMOTEROL FUMARATE 20 MCG/2 ML INHALATION SOLUTION (PERFOROMIST) INH SCH (20:00)
[2019-06-13] MEDS: BUDESONIDE 0.5 MG/2 ML INHALATION SUSPENSION INH SCH (20:00)
[2019-06-13] MEDS ORDERED: NORTRIPTYLINE 10 MG CAP PO SCH (21:00)
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
[2019-06-13] MEDS: MEROPENEM INJ 1 GM in IV 1 EA IV SCH (21:52)
[2019-06-13] MEDS: LATANOPROST 0.005% OPHTH SOLN 2.5 ML OU SCH (21:52)
[2019-06-13] MEDS: DOCUSATE SODIUM 100 MG CAP PO SCH (21:53)
[2019-06-13] MEDS: ATORVASTATIN 20 MG TAB PO SCH (21:53)
[2019-06-13 22:00] VITALS: BP 118/67
[2019-06-13] MEDS: ACETAMINOPHEN 500 MG TAB PO PRN (22:44)
[2019-06-14] MEDS: methylPREDNISolone INJ 40 MG/1 ML VIAL (J2920) IV SCH (00:32)
[2019-06-14] MEDS: ALBUTEROL SULFATE 2.5 MG/0.5 ML INH NEB SOLN NEB SCH ×4 (01:39→20:00)
[2019-06-14] MEDS: VANCOMYCIN HCL 1,000 MG, VIAL MATE ADAPTER 1 EACH in D5W 250 ML IV SCH ×2 (04:42→16:22)
[2019-06-14 05:00] VITALS: BP 108/60
[2019-06-14 06:00] VITALS: BP 118/63
[2019-06-14 06:02] LABS: BASO % 0.3 % (0.0-1.0); EOS % 0.1 % (0.0-3.0); HEMATOCRIT 27.6 % (36.0-47.0); HEMOGLOBIN 8.5 g/dl (12.0-15.5); LYMPH % 2.3 % (24.0-44.0); MEAN CORPUSCULAR HEMOGLOBIN 32.9 pg (27.0-33.0); MEAN CORPUSCULAR HGB CONC 30.8 g/dl (32.0-36.5); MONO # 0.3 10^3/uL (0.0-0.8); MONO % 3.3 % (0.0-5.0); NEUTROPHILS # 8.7 10^3/uL (1.5-8.5); NEUTROPHILS % 92.9 % (36.0-66.0); PLATELET COUNT, AUTOMATED 314 10^3/uL (150-450); RED BLOOD COUNT 2.58 10^6/uL (4.00-5.40); WHITE BLOOD COUNT 9.3 10^3/uL (4.0-10.0)
[2019-06-14] MEDS: MEROPENEM INJ 1 GM in IV 1 EA IV SCH ×2 (06:06→18:38)
[2019-06-14] MEDS: LEVOTHYROXINE 100MCG TABLET (0.1MG) PO SCH (06:06)
[2019-06-14 06:27] LABS: CALCIUM LEVEL 8.1 MG/DL (8.8-10.2); CREATININE FOR GFR 0.97 MG/DL (0.55-1.30); GLOMERULAR FILTRATION RATE 58.1 (>32); POTASSIUM SERUM 3.9 MEQ/L (3.5-5.1)
[2019-06-14 06:40] LABS: LYMPH # 0.2 10^3/uL (1.5-5.0)
[2019-06-14] MEDS: BUDESONIDE 0.5 MG/2 ML INHALATION SUSPENSION INH SCH ×2 (07:46→20:10)
[2019-06-14] MEDS: TIOTROPIUM INHALER/CAPSULE (SPIRIVA) INH SCH (07:46)
[2019-06-14] MEDS: FORMOTEROL FUMARATE 20 MCG/2 ML INHALATION SOLUTION (PERFOROMIST) INH SCH ×3 (07:49→20:10)
[2019-06-14 08:15] LABS: ABG BASE EXCESS -0.3 (-2.0-2.0); ABG HCO3 24.2 MEQ/L (22.0-26.0); ABG O2 SATURATION 96.9 % (95.0-99.0); ABG PARTIAL PRESSURE CO2 39.2 mmHg (35.0-45.0); ABG STANDARD HCO3 24.2 MEQ/L (22.0-26.0); ABG TOTAL CO2 25.4 MEQ/L (23.0-31.0); ABG pH (ARTERIAL) 7.409 UNITS (7.350-7.450)
[2019-06-14] MEDS ORDERED: methylPREDNISolone INJ 40 MG/1 ML VIAL (J2920) IV SCH (09:00)
--- NOTE | 2019-06-14 09:26 | IPNPDOC ---
Subjective Date Seen The patient was seen on 06/14/19. Subjective Chief Complaint/HPI Patient very somnolent this am. Had another spike of temperature to 101.4 last night. She wakes up for a few words then falls asleep . Says very tired and washed out. She tries to follow commands but unable to complete it as falling asleep. her voice is hoarse. ABG done is normal. Denies any abdominal pain, denies any frequency of urination or dysuria today. Objective Physical Examination General Exam: Positive: Cooperative, No Acute Distress, Other (somnolent) Eye Exam: Positive: PERRLA, Conjunctiva & lids normal, EOMI; Negative: Sclera icteric ENT Exam: Positive: Atraumatic, Mucous membr. moist/pink, Pharynx Normal Neck Exam: Positive: Supple; Negative: JVD, thyromegaly Chest Exam: Positive: Rhonchi, Wheezing Heart Exam: Positive: Rate Normal, Regular Rhythm, Normal S1, Normal S2; Negative: Murmurs, Rubs Abdomen Exam: Positive: Normal bowel sounds, Soft, Tenderness (in the hypogastrium); Negative: Hepatospenomegaly Extremity Exam: Positive: Normal pulses; Negative: Clubbing, Cyanosis, Edema Skin Exam: Positive: Nl turgor and temperature; Negative: Breakdown, Lesion Neuro Exam: Positive: Normal Speech, Strength at 5/5 X4 ext, Normal Tone Psych Exam: Positive: Memory Intact, Oriented x 3 Assessment /Plan Assessment 84 year old female who was recently in hospital in the beginning of may for left lower lobe pneumonia and UTI with Ecoli was discharged to [facility] subacute rehab where she was doing well and was going to be discharged in 2 to 3 days when this morning she was noted to be very weak. She could not get out of bed for PT . She was noted to be febrile to 102 ans was felt by the staff at [facility] to be confused so was sent to the ED for evaluation. Patient complained of dysuria and frequency of urination. Says It started after the new year was a little better in the hospital but never really went away even after discharge from [facility] . She has been going to the bathroom every 2 hours ever since the hospitalization. In [facility] urine culture was repeated on 06/09/19 which grew E faecalis so she was started on nitrofurantoin yesterday. Today she has been going to the bathroom every 30 mins . Bladder scan in the ed did not show any urinary retention. She also complained of increased cough and wheezing for the past 2 to 3 days. Does not have much phlegm production. Her UA in the ED showed only 6 WBCs but she is on nitrofurantoin. Her CXR showed left basal infiltrates unchanged from before. She complained of frequency of urination and incontinence and dysuria. Patient was admitted for UTI and asthma exacerbation. UTI Meropenem for Ecoli as allergic to cephalosporin and vancomycin for e faecalis today's culture may not grow anything as the patient has been on antibiotics. Oxybutinin for bladder spasms. Asthma exacerbation with chronic hypoxic respiratory failure budesonide and formoterol , spiriva, methy prednisone ABG normal. Diastolic CHF not in exacerbation will hold diuretics. getting gentle IVF. Essential Tremors on Botulinium injections continue primidone but will hold today for sedation will also hold pamelor very sedated. CAD status post PCI statin and metoprolol Hypothyroidism synthroid Hypertension continue metoprolol Hyperlipidemia continue statin Obesity with GALO untreated, does not use CPAP complicating care. Plan/VTE VTE Prophylaxis Ordered?: Yes VS, I&O, 24H, Fishbone Vital Signs/I&O Vital Signs Date Time Temp Pulse Resp B/P (MAP) Pulse Ox O2 Delivery O2 Flow Rate FiO2 06/14/19 06:00 97.4 90 20 118/63 (81) 95 Nasal Cannula 2.0 I&O- Last 24 Hours up to 6 AM 06/14/19 06:00 Intake Total 2632.5 ml Output Total 750 ml Balance 1882.5 ml Laboratory Data 24H LABS Laboratory Tests 2 06/13/19 12:15: Lactic Acid Level 0.9 06/13/19 12:16: Immature Granulocyte % (Auto) 0.8, Neutrophils (%) (Auto) 91.6H, Lymphocytes (%) (Auto) 2.8L, Monocytes (%) (Auto) 3.7, Eosinophils (%) (Auto) 0.8, Basophils (%) (Auto) 0.3, Neutrophils # (Auto) 10.1H, Lymphocytes # (Auto) 0.3L, Monocytes # (Auto) 0.4, Eosinophils # (Auto) 0.1, Basophils # (Auto) 0.0, Nucleated Red Blood Cells % (auto) 0.0, Urine Color YELLOW, Urine Appearance CLEAR, Urine pH 8.0, Urine Specific [place] 1.008, Urine Protein NEGATIVE, Urine Glucose (UA) NEGATIVE, Urine Ketones NEGATIVE, Urine Blood NEGATIVE, Urine Nitrite NEGATIVE, Urine Bilirubin NEGATIVE, Urine Urobilinogen 0.2, Urine Leukocyte Esterase 1+H, Urine WBC (Auto) 6H, Urine RBC (Auto) 2, Urine Hyaline Casts (Auto) 0, Urine Bacteria (Auto) NEGATIVE, Urine Squamous Epithelial Cells 0, Urine Mucus (Auto) SMALL, Urine Sperm (Auto) , Anion Gap 9, Glomerular Filtration Rate > 60.0, Calcium Level 9.1, Total Bilirubin 0.4, Direct Bilirubin 0.1, Aspartate Amino Transf (AST/SGOT) 27, Alanine Aminotransferase (ALT/SGPT) 10L, Alkaline Phosphatase 80, Total Protein 7.4, Albumin 3.0L, Albumin/Globulin Ratio 0.68L, Influenza Type A (RT-PCR) NEGATIVE, Influenza Type B (RT-PCR) NEGATIVE 06/14/19 05:26: Lactic Acid Level 0.7, Immature Granulocyte % (Auto) 1.1, Neutrophils (%) (Auto) 92.9H, Lymphocytes (%) (Auto) 2.3L, Monocytes (%) (Auto) 3.3, Eosinophils (%) (Auto) 0.1, Basophils (%) (Auto) 0.3, Neutrophils # (Auto) 8.7H, Lymphocytes # (Auto) 0.2L, Monocytes # (Auto) 0.3, Eosinophils # (Auto) 0.0, Basophils # (Auto) 0.0, Nucleated Red Blood Cells % (auto) 0.0, Anion Gap 8, Glomerular F iltration Rate 58.1, Calcium Level 8.1L 06/14/19 07:59: Blood Gas Bicarbonate Standard 24.2, Arterial Blood pH 7.409, Arterial Blood Partial Pressure CO2 39.2, Arterial Blood Partial Pressure O2 96.0, Arterial Blood Total CO2 25.4, Arterial Blood HCO3 24.2, Arterial Blood Base Excess -0.3, Arterial Blood Oxygen Saturation 96.9 CBC/BMP Laboratory Tests 06/13/19 12:16 06/14/19 05:26 Microbiology Microbiology 06/14/19 Blood Culture, Received Pending 06/13/19 Urine Culture, Received Pending 06/13/19 Blood Culture, Received Pending RAY,LEONOR MD Jun 14, 2019 09:26
[2019-06-14] MEDS: oxyBUTYnin 5 MG TAB PO SCH ×3 (10:03→20:54)
[2019-06-14] MEDS: DOCUSATE SODIUM 100 MG CAP PO SCH ×2 (10:03→20:55)
[2019-06-14] MEDS: sulfaSALAzine 500 MG TABEC PO SCH (10:04)
[2019-06-14] MEDS: METOPROLOL SUCC *XL* 25MG TAB (TopROL *XL*) PO SCH (10:25)
[2019-06-14] MEDS: NS 1,000 ML IV SCH (13:40)
[2019-06-14 14:00] VITALS: BP 111/58
[2019-06-14] MEDS: LATANOPROST 0.005% OPHTH SOLN 2.5 ML OU SCH (20:53)
[2019-06-14] MEDS: NYSTATIN 100,000 UNITS/GM TOPICAL PWD 15 GM TOP SCH (20:53)
[2019-06-14] MEDS: ATORVASTATIN 20 MG TAB PO SCH (20:54)
[2019-06-14 22:00] VITALS: BP 116/63
[2019-06-14] MEDS: ACETAMINOPHEN 500 MG TAB PO PRN (23:27)
[2019-06-15] MEDS: ALBUTEROL SULFATE 2.5 MG/0.5 ML INH NEB SOLN NEB SCH ×4 (02:59→19:15)
--- NOTE | 2019-06-15 04:33 | PHACANCOPD ---
PHARMACY VANCOMYCIN DOSING Pt Demographics Demographics Patient Age:84 , Weight:78.700 , Gender: female Adjusted Body Weight Date: 06/15/19, Adjusted Body Weight: Kg Events Past 24 Hours Events Past 24 Hours: NO: Dialysis, Diuretic Therapy, Change in CrCl, Fever, Elevation in WBC, Pending Diagnostics, Pending Procedures, Other Vancomycin Vancomycin Target Ranges: 15-20 mcg/ml Vancomycin Load Y/N: No Load Dose Date Time Vancomycin Load Dose: Date: Time: Vancomycin Dose Date: 06/15/19. Current Vancomycin Dose: [1000mg q18h] Intermittent Dosing?: No Labs Labs Item Value Date Time White Blood Count 9.3 10^3/uL 06/14/19 0526 Glomerular Filtration Rate 58.1 06/14/19 0526 Creatinine 0.97 MG/DL 06/14/19 0526 Blood Urea Nitrogen 19 MG/DL H 06/14/19 0526 Vancomycin Level Trough 22.5 UG/ML H 06/15/19 0348 Vital Signs Label Value Date Time Patient Temperature 98.1 degrees F 06/14/19 2200 Temperature Source Temporal 06/14/19 2200 Micro Microbiology 06/14/19 Blood Culture, Received Pending 06/13/19 Urine Culture - Final, Complete 06/13/19 Blood Culture - Preliminary, Resulted No growth after 24 hours . All specim... Creatinine Clearance Date:06/15/19. Creatinine Clearance: [~30]. Pending Labs Trough - @0300 Assessment and Plan Maintaining Current Dose?: No Reason for dose change: Trough too high Pharmacist Note Pharmacist Note Date: 06/15/19. Pharmacist note:Trough of 22.5 is above target range. Dosing reduced to 1000mg q18h. Will monitor and make adjustments as needed. DIRK LOZADA PHARMACY Jun 15, 2019 04:33
[2019-06-15] MEDS: NS 1,000 ML IV SCH (04:57)
[2019-06-15 06:00] VITALS: BP 137/70
[2019-06-15] MEDS: MEROPENEM INJ 1 GM in IV 1 EA IV SCH ×2 (06:19→17:12)
[2019-06-15] MEDS: LEVOTHYROXINE 100MCG TABLET (0.1MG) PO SCH (06:19)
[2019-06-15 06:24] LABS: BASO % 0.4 % (0.0-1.0); EOS # 0.5 10^3/uL (0.0-0.5); EOS % 6.1 % (0.0-3.0); HEMATOCRIT 28.3 % (36.0-47.0); HEMOGLOBIN 8.9 g/dl (12.0-15.5); LYMPH # 0.7 10^3/uL (1.5-5.0); LYMPH % 8.7 % (24.0-44.0); MEAN CORPUSCULAR HEMOGLOBIN 33.6 pg (27.0-33.0); MEAN CORPUSCULAR HGB CONC 31.4 g/dl (32.0-36.5); MEAN CORPUSCULAR VOLUME 106.8 fl (80.0-96.0); MONO # 0.6 10^3/uL (0.0-0.8); MONO % 7.4 % (0.0-5.0); NEUTROPHILS # 5.8 10^3/uL (1.5-8.5); NEUTROPHILS % 76.9 % (36.0-66.0); PLATELET COUNT, AUTOMATED 329 10^3/uL (150-450); RED BLOOD COUNT 2.65 10^6/uL (4.00-5.40); WHITE BLOOD COUNT 7.6 10^3/uL (4.0-10.0)
[2019-06-15 06:48] LABS: BLOOD UREA NITROGEN 18 MG/DL (7-18); CALCIUM LEVEL 7.9 MG/DL (8.8-10.2); CARBON DIOXIDE LEVEL 25 MEQ/L (21-32); CHLORIDE LEVEL 107 MEQ/L (98-107); CREATININE FOR GFR 0.94 MG/DL (0.55-1.30); GLOMERULAR FILTRATION RATE > 60.0 (>32); GLUCOSE, FASTING 97 MG/DL (70-100); POTASSIUM SERUM 3.9 MEQ/L (3.5-5.1); SODIUM LEVEL 139 MEQ/L (136-145)
[2019-06-15] MEDS: TIOTROPIUM INHALER/CAPSULE (SPIRIVA) INH SCH (07:14)
[2019-06-15] MEDS: FORMOTEROL FUMARATE 20 MCG/2 ML INHALATION SOLUTION (PERFOROMIST) INH SCH ×2 (07:14→19:12)
[2019-06-15] MEDS: BUDESONIDE 0.5 MG/2 ML INHALATION SUSPENSION INH SCH ×2 (07:14→19:15)
[2019-06-15] MEDS: ACETAMINOPHEN 500 MG TAB PO PRN (07:39)
[2019-06-15] MEDS ORDERED: MIRALAX *UNIT DOSE* 17GM PACKET PO SCH (09:00)
[2019-06-15] MEDS: SENOKOT S TAB PO SCH ×2 (09:00→21:52)
[2019-06-15] MEDS: oxyBUTYnin 5 MG TAB PO SCH ×3 (09:33→21:51)
[2019-06-15] MEDS: DOCUSATE SODIUM 100 MG CAP PO SCH ×2 (09:33→21:00)
[2019-06-15] MEDS: sulfaSALAzine 500 MG TABEC PO SCH (09:33)
[2019-06-15] MEDS: METOPROLOL SUCC *XL* 25MG TAB (TopROL *XL*) PO SCH (09:34)
[2019-06-15] MEDS: NYSTATIN 100,000 UNITS/GM TOPICAL PWD 15 GM TOP SCH ×2 (09:35→21:51)
[2019-06-15] MEDS ORDERED: VANCOMYCIN HCL 1,000 MG, VIAL MATE ADAPTER 1 EACH in D5W 250 ML IV SCH (10:00)
[2019-06-15] MEDS: MOM 30ML SUSPENSION UDC PO PRN (12:25)
[2019-06-15] MEDS: PRIMIDONE 250 MG TAB PO SCH ×3 (12:25→22:13)
[2019-06-15 14:00] VITALS: BP 132/83
--- NOTE | 2019-06-15 14:57 | IPNPDOC ---
Subjective Date Seen The patient was seen on 06/15/19. Subjective Chief Complaint/HPI Feeling much better today, sitting up in chair. Says feels good other than being constipated. No fever or chills, no dysuria or frequency. Wants to be discharged tomorrow. Objective Physical Examination General Exam: Positive: Cooperative, No Acute Distress, Other (somnolent) Eye Exam: Positive: PERRLA, Conjunctiva & lids normal, EOMI; Negative: Sclera icteric ENT Exam: Positive: Atraumatic, Mucous membr. moist/pink, Pharynx Normal Neck Exam: Positive: Supple; Negative: JVD, thyromegaly Chest Exam: Positive: Rhonchi, Wheezing Heart Exam: Positive: Rate Normal, Regular Rhythm, Normal S1, Normal S2; Negative: Murmurs, Rubs Abdomen Exam: Positive: Normal bowel sounds, Soft, Tenderness (in the hypogastrium); Negative: Hepatospenomegaly Extremity Exam: Positive: Normal pulses; Negative: Clubbing, Cyanosis, Edema Skin Exam: Positive: Nl turgor and temperature; Negative: Breakdown, Lesion Neuro Exam: Positive: Normal Speech, Strength at 5/5 X4 ext, Normal Tone Psych Exam: Positive: Memory Intact, Oriented x 3 Assessment /Plan Assessment 84 year old female who was recently in hospital in the beginning of may for left lower lobe pneumonia and UTI with Ecoli was discharged to [facility] subacute rehab where she was doing well and was going to be discharged in 2 to 3 days when this morning she was noted to be very weak. She could not get out of bed for PT . She was noted to be febrile to 102 ans was felt by the staff at [facility] to be confused so was sent to the ED for evaluation. Patient complained of dysuria and frequency of urination. Says It started after the new year was a little better in the hospital but never really went away even after discharge from [facility] . She has been going to the bathroom every 2 hours ever since the hospitalization. In [facility] urine culture was repeated on 06/09/19 which grew E faecalis so she was started on nitrofurantoin yesterday. Today she has been going to the bathroom every 30 mins . Bladder scan in the ed did not show any urinary retention. She also complained of increased cough and wheezing for the past 2 to 3 days. Does not have much phlegm production. Her UA in the ED showed only 6 WBCs but she is on nitrofurantoin. Her CXR showed left basal infiltrates unchanged from before. She complained of frequency of urination and incontinence and dysuria. Patient was admitted for UTI and asthma exacerbation. UTI Meropenem for Ecoli as allergic to cephalosporin and vancomycin for e faecalis today's culture may not grow anything as the patient has been on antibiotics. Oxybutinin for bladder spasms. Asthma and Bronchiectasis with exacerbation with chronic hypoxic respiratory failure now resolved. budesonide and formoterol , spiriva, methy prednisone and antibiotics Bhavin and vanco. ABG normal. Diastolic CHF not in exacerbation will hold diuretics. Essential Tremors on Botulinium injections continue pamelor and primidone CAD status post PCI statin and metoprolol Hypothyroidism synthroid Hypertension continue metoprolol Hyperlipidemia continue statin Obesity with GALO untreated, does not use CPAP complicating care. Plan/VTE VTE Prophylaxis Ordered?: Yes VS, I&O, 24H, Fishbone Vital Signs/I&O Vital Signs Date Time Temp Pulse Resp B/P (MAP) Pulse Ox O2 Delivery O2 Flow Rate FiO2 06/15/19 09:34 99 135/81 06/15/19 09:00 2.0 06/15/19 06:00 97.3 18 98 High Flow Cannula I&O- Last 24 Hours up to 6 AM 06/15/19 06:00 Intake Total 1962.5 ml Output Total 2375 ml Balance -412.5 ml Laboratory Data 24H LABS Laboratory Tests 2 06/15/19 03:48: Vancomycin Level Trough 22.5H 06/15/19 05:52: Immature Granulocyte % (Auto) 0.5, Neutrophils (%) (Auto) 76.9H, Lymphocytes (%) (Auto) 8.7L, Monocytes (%) (Auto) 7.4H, Eosinophils (%) (Auto) 6.1H, Basophils (%) (Auto) 0.4, Neutrophils # (Auto) 5.8, Lymphocytes # (Auto) 0.7L, Monocytes # (Auto) 0.6, Eosinophils # (Auto) 0.5, Basophils # (Auto) 0.0, Nucleated Red Blood Cells % (auto) 0.0, Anion Gap 7L, Glomerular Filtration Rate > 60.0, Calcium Level 7.9L CBC/BMP Laboratory Tests 06/15/19 05:52 Microbiology Microbiology 06/14/19 Blood Culture - Preliminary, Resulted No growth after 24 hours . All specim... 06/13/19 Urine Culture - Final, Complete 06/13/19 Blood Culture - Preliminary, Resulted No Growth after 48 hours. All Specime... LEONOR RESENDEZ MD Jun 15, 2019 14:57
[2019-06-15] MEDS: ATORVASTATIN 20 MG TAB PO SCH (21:51)
[2019-06-15] MEDS: LATANOPROST 0.005% OPHTH SOLN 2.5 ML OU SCH (21:52)
[2019-06-15 22:00] VITALS: BP 125/81
[2019-06-16] MEDS: ALBUTEROL SULFATE 2.5 MG/0.5 ML INH NEB SOLN NEB SCH ×4 (02:00→20:00)
[2019-06-16 03:09] LABS: BASO % 0.3 % (0.0-1.0); EOS # 0.5 10^3/uL (0.0-0.5); EOS % 6.6 % (0.0-3.0); HEMATOCRIT 28.5 % (36.0-47.0); HEMOGLOBIN 8.6 g/dl (12.0-15.5); LYMPH # 0.8 10^3/uL (1.5-5.0); MEAN CORPUSCULAR HEMOGLOBIN 32.5 pg (27.0-33.0); MEAN CORPUSCULAR HGB CONC 30.2 g/dl (32.0-36.5); MEAN CORPUSCULAR VOLUME 107.5 fl (80.0-96.0); MONO # 0.6 10^3/uL (0.0-0.8); MONO % 7.3 % (0.0-5.0); NEUTROPHILS # 5.8 10^3/uL (1.5-8.5); NEUTROPHILS % 75.2 % (36.0-66.0); PLATELET COUNT, AUTOMATED 323 10^3/uL (150-450); RED BLOOD COUNT 2.65 10^6/uL (4.00-5.40); WHITE BLOOD COUNT 7.7 10^3/uL (4.0-10.0)
--- NOTE | 2019-06-16 03:55 | PHACANCOPD ---
PHARMACY VANCOMYCIN DOSING Pt Demographics Demographics Patient Age:84 , Weight:78.700 , Gender: female Adjusted Body Weight Date: 06/15/19, Adjusted Body Weight: Kg Events Past 24 Hours Events Past 24 Hours: NO: Dialysis, Diuretic Therapy, Change in CrCl, Fever, Elevation in WBC, Pending Diagnostics, Pending Procedures, Other Vancomycin Vancomycin Target Ranges: 15-20 mcg/ml Vancomycin Load Y/N: No Load Dose Date Time Vancomycin Load Dose: Date: Time: Vancomycin Dose Date: 06/16/19. Current Vancomycin Dose: [1000mg q24h] Intermittent Dosing?: No Labs Labs Item Value Date Time White Blood Count 7.7 10^3/uL 06/16/19 0300 Glomerular Filtration Rate > 60.0 06/15/19 0552 Creatinine 0.94 MG/DL 06/15/19 0552 Blood Urea Nitrogen 18 MG/DL 06/15/19 0552 Vancomycin Level Trough 21.8 UG/ML H 06/16/19 0301 Vital Signs Label Value Date Time Patient Temperature 98.4 degrees F 06/15/19 2200 Temperature Source Oral 06/15/19 2200 Micro Microbiology 06/14/19 Blood Culture - Preliminary, Resulted No growth after 24 hours . All specim... 06/13/19 Urine Culture - Final, Complete 06/13/19 Blood Culture - Preliminary, Resulted No Growth after 48 hours. All Specime... Creatinine Clearance Date:06/15/19. Creatinine Clearance: [~30]. Pending Labs Trough 01-21 @0800 Assessment and Plan Maintaining Current Dose?: No Reason for dose change: Trough too high Pharmacist Note Pharmacist Note Date: 06/16/19. Pharmacist note:Trough of 21.8 is above target range. Dosing reduced to 1000mg q24h. Will monitor and make adjustments as needed. DIRK LOZADA PHARMACY Jun 16, 2019 03:55
[2019-06-16 06:00] VITALS: BP 145/95
[2019-06-16] MEDS: LEVOTHYROXINE 100MCG TABLET (0.1MG) PO SCH (06:04)
[2019-06-16] MEDS: MEROPENEM INJ 1 GM in IV 1 EA IV SCH ×2 (06:04→21:07)
[2019-06-16] MEDS: FORMOTEROL FUMARATE 20 MCG/2 ML INHALATION SOLUTION (PERFOROMIST) INH SCH ×2 (07:18→20:00)
[2019-06-16] MEDS: TIOTROPIUM INHALER/CAPSULE (SPIRIVA) INH SCH (07:18)
[2019-06-16] MEDS: BUDESONIDE 0.5 MG/2 ML INHALATION SUSPENSION INH SCH ×2 (07:18→20:00)
[2019-06-16] MEDS ORDERED: NYST10006 TOP (08:44)
[2019-06-16] MEDS ORDERED: OXYB5TAB10 PO (08:44)
[2019-06-16] MEDS: SENOKOT S TAB PO SCH ×3 (09:00→21:00)
[2019-06-16] MEDS ORDERED: SPIRONOLACTONE 25 MG TAB PO SCH (09:00)
[2019-06-16] MEDS ORDERED: VANCOMYCIN HCL 1,000 MG, VIAL MATE ADAPTER 1 EACH in D5W 250 ML IV SCH (09:00)
[2019-06-16] MEDS ORDERED: TORSEMIDE 20 MG TAB PO SCH (09:00)
[2019-06-16] MEDS: oxyBUTYnin 5 MG TAB PO SCH ×3 (09:26→20:31)
[2019-06-16] MEDS: NITROFURANTOIN (MACROBID) 100 MG CAP PO SCH ×2 (09:26→20:31)
[2019-06-16] MEDS: DOCUSATE SODIUM 100 MG CAP PO SCH ×2 (09:26→20:30)
[2019-06-16] MEDS: PRIMIDONE 250 MG TAB PO SCH ×3 (09:26→20:32)
[2019-06-16] MEDS: METOPROLOL SUCC *XL* 25MG TAB (TopROL *XL*) PO SCH (09:27)
[2019-06-16] MEDS: NYSTATIN 100,000 UNITS/GM TOPICAL PWD 15 GM TOP SCH ×2 (09:32→20:33)
[2019-06-16] MEDS ORDERED: AZIT500T5 PO (10:42)
[2019-06-16] MEDS: sulfaSALAzine 500 MG TABEC PO SCH (10:46)
[2019-06-16] MEDS ORDERED: AZITHROMYCIN 250 MG TAB PO ONE (11:00)
[2019-06-16 13:36] LABS: FOLATE 2.1 NG/ML (>5.4); PERCENT SATURATION 36.1 % (13.2-45.0)
[2019-06-16] MEDS: ACETAMINOPHEN TAB 650MG DOSE (2X325MG) PO PRN ×2 (13:42→20:31)
[2019-06-16 14:00] VITALS: BP 128/62
[2019-06-16 15:01] LABS: APPEARANCE, URINE CLEAR (CLEAR); BACTERIA, URINE AUTO NEGATIVE (NEGATIVE); BILIRUBIN, URINE AUTO NEGATIVE (NEGATIVE); BLOOD, URINE BLOOD 1+ (NEGATIVE); COLOR, URINE YELLOW (YELLOW); GLUCOSE, URINE (UA) AUTO NEGATIVE (NEGATIVE); KETONE, URINE AUTO NEGATIVE (NEGATIVE); LEUKOCYTE ESTERASE, URINE AUTO NEGATIVE (NEGATIVE); MUCUS, URINE SMALL (NEGATIVE); NITRITE, URINE AUTO NEGATIVE (NEGATIVE); PROTEIN, URINE AUTO NEGATIVE (NEGATIVE); RBC, URINE AUTO 2 /HPF (0-3); SPECIFIC GRAVITY URINE AUTO 1.012 (1.002-1.035); SQUAMOUS EPITHELIAL CELL UR AU 0 /HPF (0-6); UROBILINOGEN, URINE AUTO 0.2 mg/dL (0.0-2.0); WBC, URINE AUTO 1 /HPF (0-3)
--- NOTE | 2019-06-16 15:07 | IPNPDOC ---
Subjective Date Seen The patient was seen on 06/16/19. Subjective Chief Complaint/HPI Alek wants to go to [facility] says feels ok, denies any SOb , has cough but says she has chronic cough. No fever or chills, no dysuria or frequency of urination. poppy's daughter was upset with the discharge plan and said she is not good to go, she needs more iv antibiotics, she needs cxr and UA. will get i chest xry and UA . Objective Physical Examination General Exam: Positive: Cooperative, No Acute Distress, Other (somnolent) Eye Exam: Positive: PERRLA, Conjunctiva & lids normal, EOMI; Negative: Sclera icteric ENT Exam: Positive: Atraumatic, Mucous membr. moist/pink, Pharynx Normal Neck Exam: Positive: Supple; Negative: JVD, thyromegaly Chest Exam: Positive: Rhonchi (some scattered ronchi. ), Diminished (at the left base) Heart Exam: Positive: Rate Normal, Regular Rhythm, Normal S1, Normal S2; Negative: Murmurs, Rubs Abdomen Exam: Positive: Normal bowel sounds, Soft; Negative: Tenderness, Hepatospenomegaly Extremity Exam: Positive: Normal pulses; Negative: Clubbing, Cyanosis, Edema Skin Exam: Positive: Nl turgor and temperature; Negative: Breakdown, Lesion Neuro Exam: Positive: Normal Speech, Strength at 5/5 X4 ext, Normal Tone Psych Exam: Positive: Memory Intact, Oriented x 3 Assessment /Plan Assessment 84 year old female who was recently in hospital in the beginning of may for left lower lobe pneumonia and UTI with Ecoli was discharged to [facility] subacute rehab where she was doing well and was going to be discharged in 2 to 3 days when this morning she was noted to be very weak. She could not get out of bed for PT . She was noted to be febrile to 102 ans was felt by the staff at [facility] to be confused so was sent to the ED for evaluation. Patient complained of dysuria and frequency of urination. Says It started after the new year was a little better in the hospital but never really went away even after discharge from [facility] . She has been going to the bathroom every 2 hours ever since the hosp italization. In [facility] urine culture was repeated on 06/09/19 which grew E faecalis so she was started on nitrofurantoin yesterday. Today she has been going to the bathroom every 30 mins . Bladder scan in the ed did not show any urinary retention. She also complained of increased cough and wheezing for the past 2 to 3 days. Does not have much phlegm production. Her UA in the ED showed only 6 WBCs but she is on nitrofurantoin. Her CXR showed left basal infiltrates unchanged from before. She complained of frequency of urination and incontinence and dysuria. Patient was admitted for UTI and asthma exacerbation. UTI Macrobid for Ecoli for e faecalis in urine. culture from admission is contaminated today's culture may not grow anything as the patient has been on antibiotics. Oxybutinin for bladder spasms. Asthma and Bronchiectasis with exacerbation with chronic hypoxic respiratory fa ilure now resolved. budesonide and formoterol , spiriva, methy prednisone and antibiotics changed to azithromycin ABG normal. Diastolic CHF not in exacerbation restart diuretics. Essential Tremors on Botulinium injections continue pamelor and primidone CAD status post PCI statin and metoprolol Hypothyroidism synthroid Hypertension continue metoprolol Hyperlipidemia continue statin Obesity with GALO untreated, does not use CPAP complicating care. Plan/VTE VTE Prophylaxis Ordered?: Yes VS, I&O, 24H, Fishbone Vital Signs/I&O Vital Signs Date Time Temp Pulse Resp B/P (MAP) Pulse Ox O2 Delivery O2 Flow Rate FiO2 06/16/19 09:27 80 137/98 06/16/19 09:00 2.0 06/16/19 06:00 98.1 20 96 High Flow Cannula I&O- Last 24 Hours up to 6 AM 06/16/19 06:00 Intake Total 1530 ml Output Total 1400 ml Balance 130 ml Laboratory Data 24H LABS Laboratory Tests 2 06/16/19 03:00: Immature Granulocyte % (Auto) 0.6, Neutrophils (%) (Auto) 75.2H, Lymphocytes (%) (Auto) 10.0L, Monocytes (%) (Auto) 7.3H, Eosinophils (%) (Auto) 6.6H, Basophils (%) (Auto) 0.3, Neutrophils # (Auto) 5.8, Lymphocytes # (Auto) 0.8L, Monocytes # (Auto) 0.6, Eosinophils # (Auto) 0.5, Basophils # (Auto) 0.0, Nucleated Red Blood Cells % (auto) 0.0 06/16/19 03:01: Vancomycin Level Trough 21.8H 06/16/19 12:28: Iron Level 70, Total Iron Binding Capacity 194L, Transferrin % Saturation 36.1, Ferritin 470H, Vitamin B12 Level 358, Folate 2.1L 06/16/19 14:38: CBC/BMP Laboratory Tests 06/16/19 03:00 Microbiology Microbiology 06/14/19 Blood Culture - Preliminary, Resulted No Growth after 48 hours. All Specime... 06/13/19 Urine Culture - Final, Complete 06/13/19 Blood Culture - Preliminary, Resulted No Growth after 72 hours. All specime... LEONOR RESENDEZ MD Jun 16, 2019 15:07
--- NOTE | 2019-06-16 15:23 | REP ---
Portable chest, 16 p.m., single AP view with the patient upright: Comparisons are 06/13/2009 and 06/02/2009. There is a left lower lobe infiltrate, unchanged. I suspect there is now an associated left pleural effusion. The remainder of the left lung is clear. The right lung remains clear. Cardiac size is normal. The jacklyn, mediastinum, skeletal structures are unremarkable. Impression: Persisting left lower lobe infiltrate. Probable associated pleural effusion. Electronically Signed by Evgeny Russ MD 06/16/2019 03:15 P
[2019-06-16] MEDS: FOLIC ACID 1 MG TAB PO SCH (15:27)
[2019-06-16] MEDS: ATORVASTATIN 20 MG TAB PO SCH ×2 (20:32→21:00)
[2019-06-16] MEDS: LATANOPROST 0.005% OPHTH SOLN 2.5 ML OU SCH (20:32)
[2019-06-16 20:51] VITALS: BP 150/76
[2019-06-16 21:53] LABS: HEMATOCRIT 29.9 % (36.0-47.0); HEMOGLOBIN 9.5 g/dl (12.0-15.5); MEAN CORPUSCULAR HEMOGLOBIN 33.6 pg (27.0-33.0); MEAN CORPUSCULAR HGB CONC 31.8 g/dl (32.0-36.5); MEAN CORPUSCULAR VOLUME 105.7 fl (80.0-96.0); PLATELET COUNT, AUTOMATED 331 10^3/uL (150-450); RED BLOOD COUNT 2.83 10^6/uL (4.00-5.40); WHITE BLOOD COUNT 11.4 10^3/uL (4.0-10.0)
[2019-06-16 22:14] LABS: ALBUMIN 2.7 GM/DL (3.2-5.2); ALT/SGPT 23 U/L (12-78); BILIRUBIN,TOTAL 0.3 MG/DL (0.2-1.0); BLOOD UREA NITROGEN 13 MG/DL (7-18); CALCIUM LEVEL 7.9 MG/DL (8.8-10.2); CARBON DIOXIDE LEVEL 27 MEQ/L (21-32); CHLORIDE LEVEL 106 MEQ/L (98-107); CREATININE FOR GFR 0.85 MG/DL (0.55-1.30); GLOMERULAR FILTRATION RATE > 60.0 (>32); GLUCOSE, FASTING 134 MG/DL (70-100); POTASSIUM SERUM 4.5 MEQ/L (3.5-5.1); SODIUM LEVEL 138 MEQ/L (136-145); TOTAL PROTEIN 7.2 GM/DL (6.4-8.2)
[2019-06-16 22:16] LABS: ERYTHROCYTE SEDIMENTATION RATE 126 mm/hr (0-30)
[2019-06-16] MEDS: VANCOMYCIN HCL 1,000 MG, VIAL MATE ADAPTER 1 EACH in D5W 250 ML IV SCH (22:25)
--- NOTE | 2019-06-16 23:28 | PHACANCOPD ---
PHARMACY VANCOMYCIN DOSING Pt Demographics Demographics Patient Age:84 , Weight:78.700 , Gender: female Vancomycin Vancomycin Target Ranges: 15-20 mcg/ml Vancomycin Load Y/N: No Load Dose Date Time Vancomycin Load Dose: Date: Time: Vancomycin Dose Date: 06/16/19. Current Vancomycin Dose: [Restart @ 1000mg IV q24h @23:00] Intermittent Dosing?: No Labs Labs Laboratory Tests Test 06/15/19 03:48 06/16/19 03:01 Vancomycin Level Trough 22.5 UG/ML (10.0-20.0) 21.8 UG/ML (10.0-20.0) Laboratory Tests 06/16/19 21:36 Micro Microbiology 06/16/19 Blood Culture, Received Pending 06/16/19 Blood Culture, Received Pending 06/14/19 Blood Culture - Preliminary, Resulted No Growth after 48 hours. All Specime... 06/13/19 Urine Culture - Final, Complete 06/13/19 Blood Culture - Preliminary, Resulted No Growth after 72 hours. All specime... Creatinine Clearance Date:06/16/19. Creatinine Clearance: [>30 ML/MIN]. Assessment and Plan Maintaining Current Dose?: Yes Reason for dose change: No Dose Change Pharmacist Note Pharmacist Note reSTARTED TODAY CASSANDRA HOFFMAN PHARMACY Jun 16, 2019 23:27
[2019-06-16] MEDS ORDERED: SIMETHICONE 40MG/0.6ML DROPS 30ML PO PRN (23:45)
[2019-06-17] MEDS: NS 1,000 ML IV SCH ×2 (00:46→11:08)
[2019-06-17] MEDS ORDERED: SIMETHICONE 80 MG CHEW TAB PO PRN (01:00)
[2019-06-17] MEDS ORDERED: IBUPROFEN 600 MG TAB PO ONE (01:45)
--- NOTE | 2019-06-17 03:05 | REPVR ---
PROCEDURE INFORMATION: Exam: CT Abdomen And Pelvis Without Contrast Exam date and time: 06/17/2019 1:57 AM Age: 84 years old Clinical indication: Abdominal pain; Localized; Lower; Additional info: Fever and abdominal pain TECHNIQUE: Imaging protocol: Computed tomography of the abdomen and pelvis without contrast. Radiation optimization: All CT scans at this facility use at least one of these dose optimization techniques: automated exposure control; mA and/or kV adjustment per patient size (includes targeted exams where dose is matched to clinical indication); or iterative reconstruction. COMPARISON: CT ABD PELVIS W/O CONTRAST 03/16/2014 8:44 AM FINDINGS: Lungs: Mild bibasilar patchy infiltrates with mild to moderate atelectasis or consolidation involving the lower lobes and lingula. Bilateral lower lobe calcifications. Pleural space: Minimal left pleural effusion. Liver: Normal. No mass. Gallbladder and bile ducts: There is a gallstone in the gallbladder neck measuring 2.5 cm. Pancreas: Normal. No ductal dilation. Spleen: Normal. No splenomegaly. Adrenals: Normal. No mass. Kidneys and ureters: Normal. No hydronephrosis. Stomach and bowel: There is a diverticulum projecting from the proximal duodenal sweep. Partial colonic resection with distal sigmoid anastomosis. Monitoring electrode extending into the distal rectum. Appendix: A normal appendix is seen. Intraperitoneal space: Unremarkable. No free air. No significant fluid collection. Vasculature: Coronary artery calcifications are present. There is moderate atherosclerotic calcification of the abdominal aorta with extension into the iliac arteries. Lymph nodes: Unremarkable. No enlarged lymph nodes. Bladder: Unremarkable as visualized. Reproductive: Status post hysterectomy. Bones/joints: Unremarkable. No acute fracture. Soft tissues: Fat filled midline incisional hernia with small left periumbilical hernia containing a short segment of bowel with no strangulation or obstruction. IMPRESSION: 1. New minimal left pleural effusion and bibasilar patchy infiltrates and mild to moderate atelectasis or consolidation involving the lower lobes lingula which is new or increased since 03/16/2014. 2. Large gallstone in the gallbladder neck which is similar. 3. Interval takedown of a colostomy since the prior study with decreased induration and inflammatory change in the pelvis since the prior study. 4. Status post hysterectomy which is similar. 5. Distal rectal monitoring electrode. Electronically signed by: Williams Sanchez On 06/17/2019 03:04:46 AM
[2019-06-17] MEDS: ALBUTEROL SULFATE 2.5 MG/0.5 ML INH NEB SOLN NEB SCH ×4 (03:16→22:46)
[2019-06-17] MEDS: ACETAMINOPHEN TAB 650MG DOSE (2X325MG) PO PRN ×3 (04:38→18:06)
[2019-06-17] MEDS: LEVOTHYROXINE 100MCG TABLET (0.1MG) PO SCH (05:30)
[2019-06-17] MEDS: MEROPENEM INJ 1 GM in IV 1 EA IV SCH ×3 (05:31→20:29)
[2019-06-17 06:00] VITALS: BP 124/77
[2019-06-17 07:00] LABS: BASO % 0.3 % (0.0-1.0); EOS # 0.4 10^3/uL (0.0-0.5); EOS % 3.7 % (0.0-3.0); HEMATOCRIT 31.3 % (36.0-47.0); HEMOGLOBIN 9.6 g/dl (12.0-15.5); LYMPH # 0.3 10^3/uL (1.5-5.0); LYMPH % 2.7 % (24.0-44.0); MEAN CORPUSCULAR HEMOGLOBIN 33.2 pg (27.0-33.0); MEAN CORPUSCULAR HGB CONC 30.7 g/dl (32.0-36.5); MEAN CORPUSCULAR VOLUME 108.3 fl (80.0-96.0); MONO # 0.6 10^3/uL (0.0-0.8); MONO % 5.5 % (0.0-5.0); NEUTROPHILS # 9.1 10^3/uL (1.5-8.5); NEUTROPHILS % 86.9 % (36.0-66.0); PLATELET COUNT, AUTOMATED 282 10^3/uL (150-450); RED BLOOD COUNT 2.89 10^6/uL (4.00-5.40); WHITE BLOOD COUNT 10.5 10^3/uL (4.0-10.0)
[2019-06-17 07:24] LABS: BLOOD UREA NITROGEN 11 MG/DL (7-18); CALCIUM LEVEL 7.9 MG/DL (8.8-10.2); CARBON DIOXIDE LEVEL 26 MEQ/L (21-32); CHLORIDE LEVEL 106 MEQ/L (98-107); CREATININE FOR GFR 0.78 MG/DL (0.55-1.30); GLOMERULAR FILTRATION RATE > 60.0 (>32); GLUCOSE, FASTING 105 MG/DL (70-100); POTASSIUM SERUM 4.1 MEQ/L (3.5-5.1); SODIUM LEVEL 138 MEQ/L (136-145)
[2019-06-17] MEDS: BUDESONIDE 0.5 MG/2 ML INHALATION SUSPENSION INH SCH ×2 (07:27→22:46)
[2019-06-17] MEDS: FORMOTEROL FUMARATE 20 MCG/2 ML INHALATION SOLUTION (PERFOROMIST) INH SCH ×2 (07:27→22:46)
[2019-06-17] MEDS: TIOTROPIUM INHALER/CAPSULE (SPIRIVA) INH SCH (07:27)
[2019-06-17] MEDS ORDERED: SENOKOT S TAB PO SCH (09:00)
[2019-06-17] MEDS: sulfaSALAzine 500 MG TABEC PO SCH (09:42)
[2019-06-17] MEDS: AZITHROMYCIN 250 MG TAB PO SCH (09:43)
[2019-06-17] MEDS: FOLIC ACID 1 MG TAB PO SCH (09:45)
[2019-06-17] MEDS: PRIMIDONE 250 MG TAB PO SCH ×3 (09:45→20:29)
[2019-06-17] MEDS: METOPROLOL SUCC *XL* 25MG TAB (TopROL *XL*) PO SCH (09:45)
[2019-06-17] MEDS: oxyBUTYnin 5 MG TAB PO SCH ×3 (09:45→20:29)
[2019-06-17] MEDS: SENOKOT S TAB PO SCH ×2 (09:46→20:30)
[2019-06-17] MEDS: NYSTATIN 100,000 UNITS/GM TOPICAL PWD 15 GM TOP SCH ×2 (09:50→20:29)
[2019-06-17] MEDS ORDERED: SODIUM CHLORIDE HYPERTONIC 3% 15ML NEB SOL INH ONE (10:00)
[2019-06-17] MEDS ORDERED: MIRALAX *UNIT DOSE* 17GM PACKET PO PRN (11:45)
--- NOTE | 2019-06-17 11:52 | IPNPDOC ---
Subjective Date Seen The patient was seen on 06/17/19. Subjective Chief Complaint/HPI Patient spiked a fever last night with a t max of 103.1 and has been febrile all night . She was also complaining of lower abdominal pain. She has cough not much phlegm production. New sets of cultures were sent. CT abdomen and pelvis done and CXR done. Patient restarted on vanco and teddy. Says feels very tired this morning. Otherwise other breathing is fine, no abdominal pain today. No dysuria. Objective Physical Examination General Exam: Positive: Cooperative, No Acute Distress Eye Exam: Positive: PERRLA, Conjunctiva & lids normal, EOMI; Negative: Sclera icteric ENT Exam: Positive: Atraumatic, Mucous membr. moist/pink, Pharynx Normal Neck Exam: Positive: Supple; Negative: JVD, thyromegaly Chest Exam: Positive: Rhonchi (some scattered ronchi. ), Diminished (at both the bases left > right. ), Other (crackles at both the bases.) Heart Exam: Positive: Rate Normal, Regular Rhythm, Normal S1, Normal S2; Negative: Murmurs, Rubs Abdomen Exam: Positive: Normal bowel sounds, Soft, Tenderness (in the hypogastrium); Negative: Hepatospenomegaly Extremity Exam: Positive: Edema (1+ bipedal edema); Negative: Clubbing, Cyanosis Skin Exam: Positive: Nl turgor and temperature; Negative: Breakdown, Lesion Neuro Exam: Positive: Normal Speech, Strength at 5/5 X4 ext, Normal Tone Psych Exam: Positive: Memory Intact, Oriented x 3 Assessment /Plan Assessment 84 year old female who was recently in hospital in the beginning of may for left lower lobe pneumonia and UTI with Ecoli was discharged to [facility] subacute rehab where she was doing well and was going to be discharged in 2 to 3 days when this morning she was noted to be very weak. She could not get out of bed for PT . She was noted to be febrile to 102 ans was felt by the staff at [facility] to be confused so was sent to the ED for evaluation. Patient complained of dysuria and frequency of urination. Says It started after the new year was a little better in the hospital but never really went away even after discharge from [facility] . She has been going to the bathroom every 2 hours ever since the hospitalization. In [facility] urine culture was repeated on 06/09/19 which grew E faecalis so she was started on nitrofurantoin yesterday. Today she has been going to the bathroom every 30 mins . Bladder scan in the ed did not show any urinary retention. She also complained of increased cough and wheezing for the past 2 to 3 days. Does not have much phlegm production. Her UA in the ED showed only 6 WBCs but she is on nitrofurantoin. Her CXR showed left basal infiltrates unchanged from before. She complained of frequency of urination and incontinence and dysuria. Patient was admitted for UTI and asthma exacerbation. Fever persistent or new bilateral atelectasis Vs pneumonia Parapneumonic effusion. new cultures sent, cultures from prior are negative. will send a respiratory panel. continue meropenem an vancomycin will get a swallow evaluation to evaluate for aspiration CXR showed persistent left lower lobe infiltrate with some effusion now CT abdomen and pelvis shows 1. New minimal left pleural effusion and bibasilar patchy infiltrates and mild to moderate atelectasis or consolidation involving the lower lobes lingula which is new or increased since 03/16/2014. 2. Large gallstone in the gallbladder neck which is similar. 3. Interval takedown of a colostomy since the prior study with decreased induration and inflammatory change in the pelvis since the prior study. 4. midline incisional hernia with small left periumbilical hernia containing a short segment of bowel with no strangulation or obstruction. UTI Had Ecoli for e faecalis in urine this month now treated. Oxybutinin for bladder spasms. Left lower lobe pneumonia treated in beginning of may and again now. Asthma and Bronchiectasis with exacerbation with chronic hypoxic respiratory failure budesonide and formoterol , spiriva, methy prednisone and antibiotics ABG normal. Diastolic CHF not in exacerbation restart diuretics. Essential Tremors on Botulinium injections continue pamelor and primidone will hold if too sedated. CAD status post PCI statin and metoprolol Hypothyroidism synthroid Hypertension continue metoprolol Hyperlipidemia continue statin Obesity with GALO untreated, does not use CPAP complicating care. Gallstone at GB neck unchanged Hernia Plan/VTE VTE Prophylaxis Ordered?: Yes VS, I&O, 24H, Fishbone Vital Signs/I&O Vital Signs Date Time Temp Pulse Resp B/P (MAP) Pulse Ox O2 Delivery O2 Flow Rate FiO2 06/17/19 03:00 101.1 1/20/20 21:00 2.0 06/16/19 20:51 131 46 150/76 (100) 88 Nasal Cannula I&O- Last 24 Hours up to 6 AM 06/17/19 06:00 Intake Total 930 ml Output Total 1300 ml Balance -370 ml Laboratory Data 24H LABS Laboratory Tests 2 06/16/19 12:28: Iron Level 70, Total Iron Binding Capacity 194L, Transferrin % Saturation 36.1, Ferritin 470H, Vitamin B12 Level 358, Folate 2.1L 06/16/19 14:38: Urine Color YELLOW, Urine Appearance CLEAR, Urine pH 6.0, Urine Specific Ethan 1.012, Urine Protein NEGATIVE, Urine Glucose (Auto)(UA) NEGATIVE, Urine Ketones (Auto) NEGATIVE, Urine Blood 1+H, Urine Nitrite NEGATIVE, Urine Bilirubin NEGATIVE, Urine Urobilinogen 0.2, Urine Leukocyte Esterase (Auto) NEGATIVE, Urine WBC (Auto) 1, Urine RBC (Auto) 2, Urine Hyaline Casts (Auto) 0, Urine Bacteria (Auto) NEGATIVE, Urine Squamous Epithelial Cells 0, Urine Mucus (Auto) SMALL, Urine Sperm (Auto) 06/16/19 20:47: Lactic Acid Level 2.3*H 06/16/19 21:36: Nucleated Red Blood Cells % (auto) 0.0, Erythrocyte Sedimentation Rate 126H, Anion Gap 5L, Glomerular Filtration Rate > 60.0, Calcium Level 7.9L, Total Bilirubin 0.3, Aspartate Amino Transf (AST/SGOT) 93H, Alanine Aminotransferase (ALT/SGPT) 23, Alkaline Phosphatase 98, C-Reactive Protein, Quantitative 10.90H, Total Protein 7.2, Albumin 2.7L, Albumin/Globulin Ratio 0.60L 06/17/19 00:47: Urine Color YELLOW, Urine Appearance CLEAR, Urine pH 5.0, Urine Specific Ethan 1.008, Urine Protein NEGATIVE, Urine Glucose (UA) NEGATIVE, Urine Ketones NEGATIVE, Urine Blood 1+H, Urine Nitrite NEGATIVE, Urine Bilirubin NEGATIVE, Urine Urobilinogen 0.2, Urine Leukocyte Esterase NEGATIVE, Urine WBC (Auto) 0, Urine RBC (Auto) 2, Urine Hyaline Casts (Auto) 0, Urine Bacteria (Auto) 1+H, Urine Squamous Epithelial Cells 0, Urine Sperm (Auto) 06/17/19 01:19: Lactic Acid Followup at 4 Hours 2.2*H CBC/BMP Laboratory Tests 06/16/19 21:36 Microbiology Microbiology 06/16/19 Blood Culture, Received Pending 06/16/19 Blood Culture, Received Pending 06/14/19 Blood Culture - Preliminary, Resulted No Growth after 48 hours. All Specime... 06/13/19 Urine Culture - Final, Complete 06/13/19 Blood Culture - Preliminary, Resulted No Growth after 72 hours. All specime... LEONOR RESENDEZ MD Jun 17, 2019 04:40
[2019-06-17 14:00] VITALS: BP 122/76
--- NOTE | 2019-06-17 19:07 | REPVR ---
PROCEDURE INFORMATION: Exam: CT Head Without Contrast Exam date and time: 06/17/2019 6:47 PM Age: 84 years old Clinical indication: Fever TECHNIQUE: Imaging protocol: Computed tomography of the head without contrast. Radiation optimization: All CT scans at this facility use at least one of these dose optimization techniques: automated exposure control; mA and/or kV adjustment per patient size (includes targeted exams where dose is matched to clinical indication); or iterative reconstruction. COMPARISON: CT Head without contrast 06/01/2019 7:14 PM FINDINGS: Brain: No intracranial mass, focal mass effect or midline shift. No acute intracranial hemorrhage. Mild decreased attenuation in periventricular/centrum semiovale white matter. No focal effacement of cortical sulci to indicate acute cortical infarct. Anterior falx ossification, unchanged. Ventricles: Prominent ventricles and CSF spaces suggest parenchymal volume loss. Bones/joints: No calvarial fracture or destructive process. Sinuses: Visualized paranasal sinuses are unremarkable. Mastoid air cells: Mastoid air cells are normally aerated. Orbits: Visualized globes and orbits are unremarkable. Soft tissues: No focal extracranial soft tissue swelling. IMPRESSION: 1. No acute intracranial abnormality. 2. Atrophy and chronic microangiopathic change in supratentorial white matter. Electronically signed by: Shan Saucedo On 06/17/2019 19:06:57 PM
--- NOTE | 2019-06-17 19:13 | REPVR ---
PROCEDURE INFORMATION: Exam: CT Chest Without Contrast Exam date and time: 06/17/2019 6:47 PM Age: 84 years old Clinical indication: Fever TECHNIQUE: Imaging protocol: Computed tomography of the chest without contrast. 3D rendering: MIP and/or 3D reconstructed images were created by the technologist. Radiation optimization: All CT scans at this facility use at least one of these dose optimization techniques: automated exposure control; mA and/or kV adjustment per patient size (includes targeted exams where dose is matched to clinical indication); or iterative reconstruction. COMPARISON: CT Chest without contrast 02/09/2017 9:33 AM FINDINGS: Significantly compromised exam secondary to significant patient motion artifact, artifact resulting from the patient being scanned with the arms at the sides of the body, and absence of IV contrast. Thoracic aorta is ectatic and atherosclerotic. Prominent mediastinal nodes are present, nonspecific. No pneumothorax or obvious pleural effusion. New consolidative changes or atelectasis at the lung bases bilaterally without underlying acute pulmonary edema. Right middle lobe nodule measuring 4 mm is unchanged since the prior CT. Limited visualization of upper abdomen shows no concerning finding. Multi-level, age-related thoracic degenerative disc disease is present. IMPRESSION: Bilateral dependent lung atelectasis and consolidation. Aspiration pneumonia is a concern and could explain fevers. Significant exam limitations as outlined above Electronically signed by: Shan Saucedo On 06/17/2019 19:13:39 PM
[2019-06-17] MEDS: LATANOPROST 0.005% OPHTH SOLN 2.5 ML OU SCH (20:29)
[2019-06-17] MEDS: ATORVASTATIN 20 MG TAB PO SCH (20:29)
[2019-06-17 22:00] VITALS: BP 117/66
[2019-06-17] MEDS: VANCOMYCIN HCL 1,000 MG, VIAL MATE ADAPTER 1 EACH in D5W 250 ML IV SCH (22:50)
--- NOTE | 2019-06-17 23:01 | PHACANCOPD ---
PHARMACY VANCOMYCIN DOSING Pt Demographics Demographics Patient Age:84 , Weight:78.700 , Gender: female Vancomycin Vancomycin Target Ranges: 15-20 mcg/ml Vancomycin Load Y/N: No Load Dose Date Time Vancomycin Load Dose: Date: Time: Vancomycin Dose Date: 06/16/19. Current Vancomycin Dose: [Restart @ 1000mg IV q24h @23:00] Intermittent Dosing?: No Labs Labs Laboratory Tests Test 06/15/19 03:48 06/16/19 03:01 06/17/19 22:10 Vancomycin Level Trough 22.5 UG/ML (10.0-20.0) 21.8 UG/ML (10.0-20.0) 20.6 UG/ML (10.0-20.0) Laboratory Tests 06/17/19 06:47 Micro Microbiology 06/17/19 Gram Stain - Final, Complete 06/17/19 Sputum Culture - Final, Complete 06/17/19 Respiratory Virus Panel (PCR) (MARIE) - Final, Complete 06/16/19 Blood Culture - Preliminary, Resulted No growth after 24 hours . All specim... 06/16/19 Blood Culture - Preliminary, Resulted No growth after 24 hours . All specim... 06/14/19 Blood Culture - Preliminary, Resulted No Growth after 72 hours. All specime... 06/13/19 Urine Culture - Final, Complete 06/13/19 Blood Culture - Preliminary, Resulted No Growth after 72 hours. All specime... Creatinine Clearance Date:06/16/19. Creatinine Clearance: [>30 ML/MIN]. Assessment and Plan Maintaining Current Dose?: No Reason for dose change: Trough too high Pharmacist Note Pharmacist Note VANCO TROUGH = 20.6mcg/ml AFTER HER RESTART x1 DOSE. HER DOSE WILL REMAIN ORDERED. WE WILL, THOUGH, EXTEND HER FREQUENCY TO 36HRS STARTING 06/19 @11AM. HER 23:00 DOSE IS CURRENTLY RUNNING; THEREFORE, WE WILL BASE THE START TIME OFF OF THAT CASSANDRA [facility] Jun 17, 2019 23:01
[2019-06-17] MEDS: TORSEMIDE 20 MG TAB PO SCH (23:26)
[2019-06-17] MEDS: SPIRONOLACTONE 25 MG TAB PO SCH (23:27)
[2019-06-18] MEDS: ACETAMINOPHEN TAB 650MG DOSE (2X325MG) PO PRN ×2 (02:11→18:17)
[2019-06-18] MEDS: ALBUTEROL SULFATE 2.5 MG/0.5 ML INH NEB SOLN NEB SCH ×4 (02:43→19:59)
[2019-06-18] MEDS: MEROPENEM INJ 1 GM in IV 1 EA IV SCH ×3 (04:19→22:36)
[2019-06-18 06:00] VITALS: BP 115/65
[2019-06-18] MEDS: LEVOTHYROXINE 100MCG TABLET (0.1MG) PO SCH (06:07)
[2019-06-18 06:13] LABS: BASO % 0.4 % (0.0-1.0); EOS # 0.6 10^3/uL (0.0-0.5); EOS % 7.2 % (0.0-3.0); HEMATOCRIT 25.1 % (36.0-47.0); HEMOGLOBIN 7.9 g/dl (12.0-15.5); LYMPH # 0.9 10^3/uL (1.5-5.0); LYMPH % 10.3 % (24.0-44.0); MEAN CORPUSCULAR HEMOGLOBIN 33.3 pg (27.0-33.0); MEAN CORPUSCULAR HGB CONC 31.5 g/dl (32.0-36.5); MEAN CORPUSCULAR VOLUME 105.9 fl (80.0-96.0); MONO # 0.6 10^3/uL (0.0-0.8); NEUTROPHILS # 6.2 10^3/uL (1.5-8.5); NEUTROPHILS % 73.8 % (36.0-66.0); PLATELET COUNT, AUTOMATED 274 10^3/uL (150-450); RED BLOOD COUNT 2.37 10^6/uL (4.00-5.40); WHITE BLOOD COUNT 8.4 10^3/uL (4.0-10.0)
[2019-06-18 06:39] LABS: BLOOD UREA NITROGEN 12 MG/DL (7-18); CALCIUM LEVEL 7.8 MG/DL (8.8-10.2); CARBON DIOXIDE LEVEL 27 MEQ/L (21-32); CHLORIDE LEVEL 106 MEQ/L (98-107); CREATININE FOR GFR 0.84 MG/DL (0.55-1.30); GLOMERULAR FILTRATION RATE > 60.0 (>32); GLUCOSE, FASTING 96 MG/DL (70-100); POTASSIUM SERUM 3.6 MEQ/L (3.5-5.1); SODIUM LEVEL 139 MEQ/L (136-145)
[2019-06-18] MEDS: BUDESONIDE 0.5 MG/2 ML INHALATION SUSPENSION INH SCH ×2 (07:50→19:59)
[2019-06-18] MEDS: TIOTROPIUM INHALER/CAPSULE (SPIRIVA) INH SCH (07:50)
[2019-06-18] MEDS: FORMOTEROL FUMARATE 20 MCG/2 ML INHALATION SOLUTION (PERFOROMIST) INH SCH ×2 (07:50→19:59)
[2019-06-18 08:18] LABS: INR 1.18; PROTHROMBIN TIME 14.8 SECONDS (11.8-14.0)
[2019-06-18 08:19] LABS: PARTIAL THROMBOPLASTIN TIME 23.4 SECONDS (25.0-38.4)
[2019-06-18] MEDS: SENOKOT S TAB PO SCH ×2 (08:34→22:35)
[2019-06-18] MEDS: sulfaSALAzine 500 MG TABEC PO SCH (08:35)
[2019-06-18] MEDS: TORSEMIDE 20 MG TAB PO SCH (08:35)
[2019-06-18] MEDS: oxyBUTYnin 5 MG TAB PO SCH ×3 (08:35→22:34)
[2019-06-18] MEDS: PRIMIDONE 250 MG TAB PO SCH ×3 (08:35→22:35)
[2019-06-18] MEDS: METOPROLOL SUCC *XL* 25MG TAB (TopROL *XL*) PO SCH (08:35)
[2019-06-18] MEDS: SPIRONOLACTONE 25 MG TAB PO SCH (08:35)
[2019-06-18] MEDS: NYSTATIN 100,000 UNITS/GM TOPICAL PWD 15 GM TOP SCH ×2 (08:36→22:37)
[2019-06-18] MEDS: FOLIC ACID 1 MG TAB PO SCH (08:36)
[2019-06-18] MEDS: AZITHROMYCIN 250 MG TAB PO SCH (08:36)
--- NOTE | 2019-06-18 13:32 | CR ---
DATE OF CONSULTATION: 06/17/2019 REASON FOR CONSULTATION: Fever of unknown origin and mental status changes. HISTORY OF PRESENT ILLNESS: Mrs. Ball is a 84-year-old usually very independent has been sick since early May. The patient was initially admitted on June 01 complaining of generalized weakness. On review of chart, the patient was stating that she could not get out of bed, she had weakness of upper and lower extremities. She had no fever during that hospitalization. She was in the hospital for 4 days and due to debilitation she was transferred to [facility] for rehab. During that hospitalization she was treated for urinary tract infection. Urine culture was positive for E-coli on 06/02, she had many white cells on her urinalysis. She was on Levaquin which she took for 10 days every other day dosing. [facility] she continued complaining of some dysuria and another urine culture was positive for Enterococcus faecalis on the , resistant to quinolones and therefore she was started on Macrobid. The patient had recurrent fevers and therefore her second admission to [facility] her temperatures were 101. She was complaining of increasing shortness of breath and asthma exacerbation. She was also complaining of being very weak, could not get out of bed and confused. She continued complaining of dysuria with frequency and urination, increasing cough and wheezing. She did not have a productive phlegm. Chest x-ray showed a persistent left basilar infiltrate unchanged from her previous admission which also supposedly was treated with Levaquin. PAST MEDICAL HISTORY: Is significant for allergic asthma with chronic hypoxic respiratory failure on chronic oxygen, diastolic congestive heart failure, essential tremors on botulinum toxin injections, cervical dystonia, coronary artery disease status post percutaneous coronary intervention (PCI), hypertension, macrocytic anemia, hypothyroidism, hypertension, hyperlipidemia, obesity, recurrent urinary tract infections, glaucoma, history of rheumatoid arthritis, obstructive sleep apnea. PAST SURGICAL HISTORY: Hysterectomy, cataract surgery, colostomy with reversal. SOCIAL HISTORY: She is a . Her 5 years ago from lung cancer. She quit smoking over 5 years ago. She denies alcohol use or drug use. She lives alone but does not drive due to tremors. She is very independent. REVIEW OF SYSTEMS: She complains of fever, chills. She is fatigued, weak. She is complaining of increasing back pain. Denies any headache. No nausea, vomiting, diarrhea, or abdominal pain. She has been having dysuria, frequency and confusion with increasing tremors. ALLERGIES: CEPHALOSPORINS, NSAIDS, TETRACYCLINE, CIPROFLOXACIN, IBUPROFEN, IODINE. MEDICATIONS: The patient was started on meropenem, vancomycin and Zithromax on admission. She got two doses of Solu Medrol on the that was discontinued. Currently she is on vancomycin 1 gram IV every 36 hours, Aldactone 25 mg daily, Demadex 40 mg by mouth daily, MiraLax as needed, Zithromax 500 mg by mouth daily, simethicone as-needed medications, meropenem 1 gram IV every 8 hours, folic acid one tablet daily, milk of mag, nystatin powder, sulfasalazine 1000 mg by mouth daily, Spiriva one inhalation daily, levothyroxine 100 mcg daily, Lipitor 40 mg by mouth daily, Xalatan drop one drop OU at bedtime, Perforomist 20 mcg inhaled twice a day, albuterol nebs as needed, oxybutynin 5 mg by mouth three times a day. LABORATORY DATA: White count on admission was 11.1, today was 10.5, hemoglobin 9.6, hematocrit 31.3, platelets 282, 86% neutrophils, 3% lymphocytes, 5% monocytes, 3% eosinophils. ESR 126. Sodium 138, potassium 4.1, chloride 106, bicarb 26, BUN 11, creatinine 0.78, glucose 105, lactic acid 2.2, calcium 7.9. Procalcitonin 1.7. During her previous admission procalcitonin was 0.09. Vancomycin trough was 20.6 and has been above 20 during the whole admission. MRSA screen was negative. Influenza A and B was negative PCR. Blood cultures on June 13, two sets were negative. June 16 two sets were negative. Urine culture was negative. Respiratory panel was negative and sputum Gram stain culture was of poor quality, had many epithelial cells and few white cells. Chest x-ray on a two-view shows a left lower lobe infiltrate, unchanged from 06/02. CT abdomen and pelvis on 06/17 shows a minimal left pleural effusion which is new and bibasilar patchy infiltrate with mild to moderate atelectasis or consolidation increased, large gallstone in the gallbladder neck unchanged, colostomy reversal, hysterectomy. PHYSICAL EXAMINATION: On physical exam she is a sick looking female in moderate discomfort. Maximum temperature (t-max) was 103.2, pulse 108, respirations 20, blood pressure 117/66, O2 sat 94% on 2 liters nasal cannula. The patient is sitting in a chair, daughter at the bedside trying to arouse her. She wakes up, answers some questions appropriately but for the most part she is lethargic and not responding to my questions. Heart: Normal S1-S2 tachycardiac with a systolic ejection murmur 2/6. Lungs: Diminished breath sounds with few exterior wheezes. Abdomen: Obese, soft, nontender. No hepatosplenomegaly appreciated. Back: She has a heating pad. No CVA tenderness, but has lumbar spine tenderness, could not specifically localize to one spot. Extremities: +1 pitting edema bilaterally. No lesions. No rashes. No clubbing or cyanosis. Is able to move both lower extremities. Oropharynx is dry. No thrush. No lesions. Pupils equal and reactive, anicteric. Neck: Slight stiffness. The patient has a history of cervical dystonia when repositioned I could not appreciate as much neck stiffness. Neurologic exam: Could not be obtained due to the patient being lethargic. IMPRESSION: This is a 84-year-old female who has been ill for the past 2 weeks with what initially she presented with generalized weakness, difficulty getting out of bed treated for presumptive urinary tract infection with pyuria, E-coli and possibility of left lower lobe pneumonia. She had levofloxacin, was still on treatment with quinolone when she was re-admitted with continued fever treated with vancomycin and meropenem received a couple doses of Solu-Medrol and one dose of Zithromax. The patient had breakthrough fever on antibiotics up to 103.5 on June 16 when her vancomycin level was still elevated and she has received a dose of meropenem 12 hours prior. She has increased lethargy. She still has weakness, I am not sure if her defervescence on the and were related to the fact that she had a couple doses of steroids which could have masked a fever and made her feel better. I am concerned about this persistent illness for the past 2 weeks with broad-spectrum antibiotics whether we are missing some occult abscess versus meningitis or other possibly viral infection. PLAN: 1. Due to her worsening mental status. I would suggest obtaining a head CT and probably getting an lumbar puncture 2. Obtain a chest CT to better delineate what is her respiratory problem. 3. Continue with current antibiotics IV meropenem, vancomycin and Zithromax that covers all pathogens. There has been concern about aspiration pneumonia but her swallowing evaluation was negative. 4. Obtain lumbar spine MRI if LP negative to rule out possibility of discitis epidural abscess as the patient has had increasing back pain. Daughter is at bedside and I have relayed her all the information, she agrees with the plan. I would first pursue head CT, chest CT, and lumbar puncture and then if that is negative then obtain lumbar spine MRI.
[2019-06-18 14:00] VITALS: BP 123/67
[2019-06-18] MEDS ORDERED: LIDOCAINE 1% MDV 20ML VIAL As Ordered ONE (15:16)
--- NOTE | 2019-06-18 20:15 | IPNPDOC ---
Text Note Date of Service The patient was seen on 06/18/19. NOTE SUBJECTIVE The patient appears improved from yesterday. She is not quite as fatigued. She had a MAXIMUM TEMPERATURE of 100.9. She has been afebrile for the rest of the day. Patient is undergoing IV antibiotic therapy with vancomycin; Enterococcus faecalis was isolated from her urine on June 09. Patient is also felt to have some residual resolving pneumonia based on left basal infiltrates on her chest x-ray. She is status post placement of midline. OBJECTIVE Please see vital signs below Physical exam: HEENT: Neck is supple with no adenopathy or thyromegaly, oral mucosa is moist Cardiovascular exam: Regular rate and rhythm with a normal S1 and S2. I do not appreciate a murmur or bruit. Respiratory: Patient has occasional coarse breath sounds but no active cough at this time. Abdomen: Soft, nontender, nondistended, mild central obesity Extremities: Patient does have 1-2+ pitting edema to her ankles and lower legs, pedal pulses are palpable, legs are nontender. Psych: Cognition and memory are intact for her age. ASSESSMENT/PLAN: Fever. This had been persisting. However, she has been afebrile after her MAXIMUM TEMPERATURE 100.9 at 2:00 this morning. She remains on empiric antibiotics in the form of vancomycin; enterococcus had been isolated from her urine. Repeat culture results are pending. With persistent fever concern had been raised for possible BATH MIXER infection; head CT obtained is unremarkable. He Eval by lumbar puncture is being considered. We will need to discuss this further with the infectious disease service. Again, patient appears to have defervesced over the course of the day. Chronic lung disease. The patient has chronic lung disease in the form of asthma and bronchiectasis resulting in chronic hypoxic respiratory failure. She continues with her inhaler therapy, systemic steroids and empiric antibiotics. Infiltrates likely was flexed resolving pneumonia. Congestive heart failure. Patient has known history of diastolic congestive heart failure. She remains on her baseline diuretics. She does have some lower extremity pitting edema that we will monitor. She has shown some weight loss during this hospital stay. Concern for small dysfunction. With pneumonia described as recurrent concern was raised for dysphagia and a spiration. She had been on a dysphagia diet but has been evaluated by speech therapy services and has been cleared for a regular diet. We will continue to monitor her clinically, however. Anemia of chronic disease. We note that the patient's hemoglobin today has done a slow downward drift to 7.9. We will monitor her hemoglobin; if she demonstrates any tachycardia, hypotension, acute hypoxia or other concerns for blood loss, we will consider transfusion of packed red blood cells. VS,Fishbone, I+O VS, Fishbone, I+O Laboratory Tests 06/18/19 05:57 Vital Signs Date Time Temp Pulse Resp B/P (MAP) Pulse Ox O2 Delivery O2 Flow Rate FiO2 06/18/19 15:58 95 18 95 Nasal Cannula 2 06/18/19 15:10 98.5 06/18/19 14:00 123/67 (85) I&O- Last 24 Hours up to 6 AM 06/18/19 06:00 Intake Total 1930 ml Output Total 800 ml Balance 1130 ml TORRIE MARTIN MD Jun 18, 2019 20:15
[2019-06-18 22:00] VITALS: BP 127/76
[2019-06-18] MEDS: ATORVASTATIN 20 MG TAB PO SCH (22:34)
[2019-06-18] MEDS: MOM 30ML SUSPENSION UDC PO PRN (22:35)
[2019-06-18] MEDS: LATANOPROST 0.005% OPHTH SOLN 2.5 ML OU SCH (22:36)
[2019-06-19] MEDS: SODIUM CHLORIDE 0.9% INJ 10 ML SYR IV SCH ×3 (00:03→22:11)
[2019-06-19] MEDS: SODIUM CHLORIDE 0.9% INJ 10 ML SYR IV PRN ×2 (00:04→06:59)
[2019-06-19] MEDS: ACETAMINOPHEN TAB 650MG DOSE (2X325MG) PO PRN ×2 (00:25→20:17)
[2019-06-19] MEDS: ALBUTEROL SULFATE 2.5 MG/0.5 ML INH NEB SOLN NEB SCH ×4 (01:20→19:30)
[2019-06-19 06:00] VITALS: BP 127/77
[2019-06-19] MEDS: MEROPENEM INJ 1 GM in IV 1 EA IV SCH ×3 (06:02→21:07)
[2019-06-19] MEDS: LEVOTHYROXINE 100MCG TABLET (0.1MG) PO SCH (06:03)
[2019-06-19 06:26] LABS: BASO % 0.2 % (0.0-1.0); EOS # 0.7 10^3/uL (0.0-0.5); EOS % 8.6 % (0.0-3.0); HEMOGLOBIN 7.9 g/dl (12.0-15.5); LYMPH # 1.5 10^3/uL (1.5-5.0); LYMPH % 17.9 % (24.0-44.0); MEAN CORPUSCULAR HEMOGLOBIN 32.5 pg (27.0-33.0); MEAN CORPUSCULAR HGB CONC 30.4 g/dl (32.0-36.5); MONO # 0.6 10^3/uL (0.0-0.8); MONO % 7.5 % (0.0-5.0); NEUTROPHILS # 5.3 10^3/uL (1.5-8.5); NEUTROPHILS % 64.9 % (36.0-66.0); PLATELET COUNT, AUTOMATED 284 10^3/uL (150-450); RED BLOOD COUNT 2.43 10^6/uL (4.00-5.40); WHITE BLOOD COUNT 8.2 10^3/uL (4.0-10.0)
[2019-06-19 06:50] LABS: BLOOD UREA NITROGEN 13 MG/DL (7-18); CALCIUM LEVEL 7.7 MG/DL (8.8-10.2); CARBON DIOXIDE LEVEL 32 MEQ/L (21-32); CHLORIDE LEVEL 104 MEQ/L (98-107); CREATININE FOR GFR 0.88 MG/DL (0.55-1.30); GLOMERULAR FILTRATION RATE > 60.0 (>32); GLUCOSE, FASTING 94 MG/DL (70-100); POTASSIUM SERUM 3.7 MEQ/L (3.5-5.1); SODIUM LEVEL 140 MEQ/L (136-145)
[2019-06-19] MEDS: METOPROLOL SUCC *XL* 25MG TAB (TopROL *XL*) PO SCH (09:00)
[2019-06-19] MEDS: BUDESONIDE 0.5 MG/2 ML INHALATION SUSPENSION INH SCH ×2 (09:04→19:30)
[2019-06-19] MEDS: FORMOTEROL FUMARATE 20 MCG/2 ML INHALATION SOLUTION (PERFOROMIST) INH SCH ×2 (09:04→19:30)
[2019-06-19] MEDS: TIOTROPIUM INHALER/CAPSULE (SPIRIVA) INH SCH (09:04)
[2019-06-19] MEDS: PRIMIDONE 250 MG TAB PO SCH (10:01)
[2019-06-19] MEDS: oxyBUTYnin 5 MG TAB PO SCH ×3 (10:01→21:06)
[2019-06-19] MEDS: SPIRONOLACTONE 25 MG TAB PO SCH (10:01)
[2019-06-19] MEDS: TORSEMIDE 20 MG TAB PO SCH (10:01)
[2019-06-19] MEDS: AZITHROMYCIN 250 MG TAB PO SCH (10:02)
[2019-06-19] MEDS: sulfaSALAzine 500 MG TABEC PO SCH (10:02)
[2019-06-19] MEDS: FOLIC ACID 1 MG TAB PO SCH (10:02)
[2019-06-19] MEDS: SENOKOT S TAB PO SCH ×2 (10:02→21:06)
[2019-06-19] MEDS: NYSTATIN 100,000 UNITS/GM TOPICAL PWD 15 GM TOP SCH ×2 (10:03→21:07)
[2019-06-19] MEDS ORDERED: VANCOMYCIN HCL 1,000 MG, VIAL MATE ADAPTER 1 EACH in D5W 250 ML IV SCH (11:00)
[2019-06-19 14:00] VITALS: BP 118/72
[2019-06-19 16:50] LABS: FERRITIN 700 NG/ML (8-252); IRON (FE) 37 UG/DL (50-170); PERCENT SATURATION 25.2 % (13.2-45.0); TOTAL IRON BINDING CAPACITY 147 UG/DL (250-450)
[2019-06-19] MEDS: LACTOBACILLUS ACIDOPHILUS CAP (BACID) PO SCH (18:24)
[2019-06-19] MEDS: PRIMIDONE 50 MG TAB PO SCH ×2 (18:25→21:06)
--- NOTE | 2019-06-19 18:36 | IPNPDOC ---
Date Seen The patient was seen on 06/19/19. Progress Note Contact information daughter Marybeth Hodgson [phone] VS, I&O, 24H, Juve Vital Signs/I&O Vital Signs Date Time Temp Pulse Resp B/P (MAP) Pulse Ox O2 Delivery O2 Flow Rate FiO2 06/19/19 14:00 98.0 95 18 118/72 (87) 96 Nasal Cannula 2.0 I&O- Last 24 Hours up to 6 AM 06/19/19 06:00 Intake Total 590 ml Output Total 0 ml Balance 590 ml Laboratory Data 24H LABS Laboratory Tests 2 06/19/19 05:48: Immature Granulocyte % (Auto) 0.9, Neutrophils (%) (Auto) 64.9, Lymphocytes (%) (Auto) 17.9L, Monocytes (%) (Auto) 7.5H, Eosinophils (%) (Auto) 8.6H, Basophils (%) (Auto) 0.2, Neutrophils # (Auto) 5.3, Lymphocytes # (Auto) 1.5, Monocytes # (Auto) 0.6, Eosinophils # (Auto) 0.7H, Basophils # (Auto) 0.0, Reticulocyte # (auto) 61.2, Nucleated Red Blood Cells % (auto) 0.0, Differential Slide Review Report, Peripheral Blood Smear Path Consult PERIPHERAL SMEAR, Percent Reticulocyte Count 2.6H, Reticulocyte Hemoglobin Equivalent 34.6, Anion Gap 4L, Glomerular Filtration Rate > 60.0, Calcium Level 7.7L, Iron Level 37L, Total Iron Binding Capacity 147L, Transferrin % Saturation 25.2, Ferritin 700H 06/19/19 10:00: Vancomycin Level Trough 16.7 CBC/BMP Laboratory Tests 06/19/19 05:48 Microbiology Microbiology 06/17/19 Gram Stain - Final, Complete 06/17/19 Sputum Culture - Final, Complete 06/17/19 Respiratory Virus Panel (PCR) (MARIE) - Final, Complete 06/16/19 Blood Culture - Preliminary, Resulted No Growth after 48 hours. All Specime... 06/16/19 Blood Culture - Preliminary, Resulted No Growth after 48 hours. All Specime... 06/14/19 Blood Culture - Final, Complete NO GROWTH AFTER 5 DAYS 06/13/19 Urine Culture - Final, Complete 06/13/19 Blood Culture - Final, Complete NO GROWTH AFTER 5 DAYS FAWAD MILLER MD Jun 19, 2019 18:36
--- NOTE | 2019-06-19 21:03 | IPN ---
DATE: 06/19/2019 INFECTIOUS DISEASE PROGRESS NOTE Mrs. Ball is doing much better. She has been afebrile for the past 24 hours. She is alert, oriented. She is at baseline oxygen. She is on the phone and is happy, smiling has no major complaints. She has a mild cough. No nausea, vomiting or diarrhea. On physical exam, temperature is 98, pulse 95, respirations 18, blood pressure 118/72, oxygen saturation (O2 sat) 96% on 2 liters nasal cannula, which is at baseline. Heart: Normal S1, S2, distant. Lungs: Diminished breath sounds bilaterally. Few crackles at the bases. Abdomen: Obese, soft, nontender. Extremities: Trace edema bilaterally. Oropharynx is clear with no thrush. Alert and oriented times three without neck stiffness. LABORATORY: White count 8.2, hemoglobin 7.9, hematocrit 26, MCV 107, folic acid 2.1. 65% neutrophils, 18% lymphocytes, 7% monocytes. Sodium 140, potassium 3.7, chloride 104, bicarbonate 32, BUN 13, creatinine 0.88, glucose 94, calcium 7.7, iron 37, TIBC 147, iron saturation 25, ferritin 700. Procalcitonin was 1.67 on 06/17/2019. Sputum culture was poor quality with few white cells and many epithelial cells. Methicillin-resistant Staphylococcus aureus (MRSA) nasal screen was negative. Blood cultures were negative. Chest CT showed bilateral dependent atelectasis and lung consolidation; aspiration pneumonia is of concern. Head CT showed no acute findings. IMPRESSION: Recurrent fever in the setting of worsening consolidation of the lungs, possibly aspiration. The patient is doing much better. She is on IV vancomycin, meropenem and Zithromax. The patient has finished 5 days of Zithromax treatment, and therefore, that will be discontinued. She has a negative MRSA screen, and has received so far 7 days of IV vancomycin. If the patient remains afebrile tomorrow, I would also discontinue vancomycin and continue with meropenem for another 3 days. Mental status changes, has resolved. The patient has essential tremors; they are at baseline. Recurrent urinary tract infection. Currently that does not seem to be the problem. Her most recent urinalysis had 0 white cells and 2 red cells. PLAN: Discontinue vancomycin tomorrow if afebrile. MRSA screen was negative and sputum culture did not have MRSA. Continue IV meropenem for a total of 10 days. Possibly recurrent aspiration pneumonia. Repeat procalcitonin and C-reactive protein (CRP) tomorrow.
[2019-06-19] MEDS: ATORVASTATIN 20 MG TAB PO SCH (21:06)
[2019-06-19] MEDS: LATANOPROST 0.005% OPHTH SOLN 2.5 ML OU SCH (21:07)
[2019-06-19 22:00] VITALS: BP 116/67
[2019-06-20] MEDS: ALBUTEROL SULFATE 2.5 MG/0.5 ML INH NEB SOLN NEB SCH ×4 (02:00→20:00)
[2019-06-20] MEDS: MEROPENEM INJ 1 GM in IV 1 EA IV SCH ×3 (05:41→22:22)
[2019-06-20] MEDS: LEVOTHYROXINE 100MCG TABLET (0.1MG) PO SCH (05:41)
[2019-06-20 06:00] VITALS: BP 130/78
[2019-06-20 06:39] LABS: BASO % 0.3 % (0.0-1.0); EOS # 0.7 10^3/uL (0.0-0.5); EOS % 8.8 % (0.0-3.0); HEMATOCRIT 25.4 % (36.0-47.0); HEMOGLOBIN 7.9 g/dl (12.0-15.5); LYMPH # 1.6 10^3/uL (1.5-5.0); LYMPH % 20.1 % (24.0-44.0); MEAN CORPUSCULAR HEMOGLOBIN 33.1 pg (27.0-33.0); MEAN CORPUSCULAR HGB CONC 31.1 g/dl (32.0-36.5); MEAN CORPUSCULAR VOLUME 106.3 fl (80.0-96.0); MONO # 0.7 10^3/uL (0.0-0.8); MONO % 8.7 % (0.0-5.0); NEUTROPHILS # 4.9 10^3/uL (1.5-8.5); NEUTROPHILS % 61.2 % (36.0-66.0); PLATELET COUNT, AUTOMATED 322 10^3/uL (150-450); RED BLOOD COUNT 2.39 10^6/uL (4.00-5.40)
[2019-06-20] MEDS: SODIUM CHLORIDE 0.9% INJ 10 ML SYR IV PRN ×3 (06:55→13:35)
[2019-06-20 07:02] LABS: BLOOD UREA NITROGEN 11 MG/DL (7-18); CALCIUM LEVEL 7.5 MG/DL (8.8-10.2); CARBON DIOXIDE LEVEL 32 MEQ/L (21-32); CHLORIDE LEVEL 102 MEQ/L (98-107); CREATININE FOR GFR 0.84 MG/DL (0.55-1.30); GLOMERULAR FILTRATION RATE > 60.0 (>32); GLUCOSE, FASTING 86 MG/DL (70-100); POTASSIUM SERUM 3.9 MEQ/L (3.5-5.1); SODIUM LEVEL 137 MEQ/L (136-145)
[2019-06-20] MEDS: BUDESONIDE 0.5 MG/2 ML INHALATION SUSPENSION INH SCH ×2 (07:45→20:41)
[2019-06-20] MEDS: TIOTROPIUM INHALER/CAPSULE (SPIRIVA) INH SCH (07:45)
[2019-06-20] MEDS: FORMOTEROL FUMARATE 20 MCG/2 ML INHALATION SOLUTION (PERFOROMIST) INH SCH ×2 (07:45→20:41)
--- NOTE | 2019-06-20 08:02 | REP ---
MIDLINE INSERTION WITH ULTRASOUND GUIDANCE: REASON FOR EXAM: PROCEDURE: Midline catheter insertion under ultrasound guidance. This procedure was performed by ZORA Philip, under the direct supervision of Dr. Gilman. The risks and benefits of the procedure were explained to the patient and informed consent was obtained prior to the procedure both verbally and written. Directly prior to the start of the procedure, a formal timeout was completed in the procedure room. The left basilic vein was localized using ultrasound guidance. The skin was prepped and draped in a sterile fashion. 1% lidocaine 10 mg/ml was used as a local anesthetic. Using ultrasound guidance the left basilic vein was cannulated and a 0.018 guidewire was inserted. The needle was removed and a 5.5 Icelandic dilator and a Peel-Away sheath was inserted over the guidewire. A 5.5 Icelandic dual lumen catheter was cut to the length of 13 cm. The dilator was removed and the catheter was inserted over the guidewire. The Peel-Away sheath was removed and the catheter was flushed with heparinized saline as per hospital protocol. The catheter was affixed to the skin and a sterile dressing was applied. The patient tolerated the procedure well and there were no immediate complications. Reviewed by ZORA Zimmerman 06/19/2019 08:01 A Electronically Signed by Uriel Gilman MD 06/19/2019 11:30 A
[2019-06-20] MEDS: SPIRONOLACTONE 25 MG TAB PO SCH (08:33)
[2019-06-20] MEDS: LACTOBACILLUS ACIDOPHILUS CAP (BACID) PO SCH ×3 (08:33→17:20)
[2019-06-20] MEDS: SENOKOT S TAB PO SCH ×2 (08:33→22:21)
[2019-06-20] MEDS: FOLIC ACID 1 MG TAB PO SCH (08:34)
[2019-06-20] MEDS: TORSEMIDE 20 MG TAB PO SCH (08:34)
[2019-06-20] MEDS: PRIMIDONE 50 MG TAB PO SCH ×3 (08:34→22:21)
[2019-06-20] MEDS: oxyBUTYnin 5 MG TAB PO SCH ×3 (08:35→22:22)
[2019-06-20] MEDS: sulfaSALAzine 500 MG TABEC PO SCH (08:35)
[2019-06-20] MEDS: NYSTATIN 100,000 UNITS/GM TOPICAL PWD 15 GM TOP SCH ×2 (08:37→22:23)
[2019-06-20] MEDS: METOPROLOL SUCC *XL* 25MG TAB (TopROL *XL*) PO SCH (08:41)
[2019-06-20 14:00] VITALS: BP 117/70
[2019-06-20 15:33] LABS: ERYTHROCYTE SEDIMENTATION RATE 128 mm/hr (0-30)
--- NOTE | 2019-06-20 18:54 | IPN ---
DATE: 06/20/2019 Mrs. Ball seems to be doing very well. She denies any nausea, vomiting, diarrhea or abdominal pain. 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 She also states that she uses a heating pad because she is cold all the time. She denies any fever or chills, nausea, vomiting or diarrhea. She is on the phone with her daughter in [place]. She is alert, oriented times three. PHYSICAL EXAMINATION: VITAL SIGNS: Temperature 98.4, pulse 113, respirations 17, blood pressure 117/70, oxygen saturation 91% on 3 liters nasal cannula. HEART: Normal S1,S2. No murmurs. LUNGS: Diminished breath sounds at the bases but no wheezes. ABDOMEN: Obese, soft, nontender. EXTREMITIES: Trace edema bilaterally. She has difficulty with hip flexion and knee flexion, but she has good range of motion once I help her. She is just generalized weakness. No swelling of the joints of her hips. Motor strength upper extremity 5/5 bilaterally. White count 8, hemoglobin 7.9, hematocrit 25.4, platelets 322, 61% neutrophils, 20% lymphocytes, 8% monocytes. Sodium 137, potassium 3.9, chloride 102, bicarbonate 32, BUN 11, creatinine 0.84, glucose 86, calcium 7.4. CRP 10.8. Procalcitonin done to 0.83 from 1.67. IMPRESSION: 1. Pneumoniae on intravenous (IV) meropenem. Finish seven days of vancomycin, discontinued today 06/20/2019, Zithromax discontinued 06/19/2019 after five days of treatment for atypical coverage. 2. History of urinary tract infection. Resolved. Patient asymptomatic. PLAN: Continue 10-day course of IV meropenem for presumed aspiration pneumonia. She will finish therapy on Sunday. Discontinue antibiotics if remains afebrile.
[2019-06-20 22:00] VITALS: BP 117/71
[2019-06-20] MEDS: ATORVASTATIN 20 MG TAB PO SCH (22:21)
[2019-06-20] MEDS: LATANOPROST 0.005% OPHTH SOLN 2.5 ML OU SCH (22:23)
[2019-06-20] MEDS: SODIUM CHLORIDE 0.9% INJ 10 ML SYR IV SCH (22:23)
[2019-06-21] MEDS: SUCRALFATE 1 GM TAB PO SCH ×3 (01:08→20:32)
[2019-06-21] MEDS: ALBUTEROL SULFATE 2.5 MG/0.5 ML INH NEB SOLN NEB SCH ×4 (02:00→19:33)
[2019-06-21] MEDS: MEROPENEM INJ 1 GM in IV 1 EA IV SCH ×3 (05:59→20:32)
[2019-06-21] MEDS: LEVOTHYROXINE 100MCG TABLET (0.1MG) PO SCH (05:59)
[2019-06-21 06:00] VITALS: BP 122/74
[2019-06-21 06:07] LABS: HEMATOCRIT 26.4 % (36.0-47.0); HEMOGLOBIN 8.2 g/dl (12.0-15.5); MEAN CORPUSCULAR HEMOGLOBIN 33.2 pg (27.0-33.0); MEAN CORPUSCULAR HGB CONC 31.1 g/dl (32.0-36.5); MEAN CORPUSCULAR VOLUME 106.9 fl (80.0-96.0); PLATELET COUNT, AUTOMATED 354 10^3/uL (150-450); RED BLOOD COUNT 2.47 10^6/uL (4.00-5.40)
[2019-06-21 06:29] LABS: BLOOD UREA NITROGEN 12 MG/DL (7-18); CARBON DIOXIDE LEVEL 32 MEQ/L (21-32); CHLORIDE LEVEL 101 MEQ/L (98-107); CREATININE FOR GFR 0.72 MG/DL (0.55-1.30); GLOMERULAR FILTRATION RATE > 60.0 (>32); GLUCOSE, FASTING 88 MG/DL (70-100); POTASSIUM SERUM 4.1 MEQ/L (3.5-5.1); SODIUM LEVEL 138 MEQ/L (136-145)
[2019-06-21] MEDS: BUDESONIDE 0.5 MG/2 ML INHALATION SUSPENSION INH SCH ×2 (07:47→19:33)
[2019-06-21] MEDS: TIOTROPIUM INHALER/CAPSULE (SPIRIVA) INH SCH (07:47)
[2019-06-21] MEDS: FORMOTEROL FUMARATE 20 MCG/2 ML INHALATION SOLUTION (PERFOROMIST) INH SCH ×2 (07:47→19:33)
[2019-06-21] MEDS: LACTOBACILLUS ACIDOPHILUS CAP (BACID) PO SCH ×3 (08:31→17:29)
[2019-06-21] MEDS: PRIMIDONE 50 MG TAB PO SCH ×3 (08:31→20:32)
[2019-06-21] MEDS: PANTOPRAZOLE 40MG TAB (PROTONIX) PO SCH (08:31)
[2019-06-21] MEDS: METOPROLOL SUCC *XL* 25MG TAB (TopROL *XL*) PO SCH (08:32)
[2019-06-21] MEDS: oxyBUTYnin 5 MG TAB PO SCH ×3 (08:33→20:32)
[2019-06-21] MEDS: sulfaSALAzine 500 MG TABEC PO SCH (08:33)
[2019-06-21] MEDS: FERROUS SULFATE 325MG TAB PO SCH ×2 (08:33→20:32)
[2019-06-21] MEDS: TORSEMIDE 20 MG TAB PO SCH (08:33)
[2019-06-21] MEDS: SENOKOT S TAB PO SCH ×2 (08:34→20:32)
[2019-06-21] MEDS: ASCORBIC ACID 500 MG TAB PO SCH ×2 (08:34→20:32)
[2019-06-21] MEDS: SPIRONOLACTONE 25 MG TAB PO SCH (08:34)
[2019-06-21] MEDS: FOLIC ACID 1 MG TAB PO SCH (08:34)
[2019-06-21] MEDS: NYSTATIN 100,000 UNITS/GM TOPICAL PWD 15 GM TOP SCH ×2 (08:35→20:32)
[2019-06-21] MEDS: SODIUM CHLORIDE 0.9% INJ 10 ML SYR IV PRN (08:37)
--- NOTE | 2019-06-21 09:13 | IPN ---
DATE: 06/20/2019 Patient remains afebrile. No complaints of shortness of breath. Still with productive cough with white sputum. She has had three small bowel movements yesterday. No nausea, vomiting, epigastric pain. Per infectious disease, patient it to complete a total of 10 days of antibiotics for presumed aspiration pneumonia and will complete antibiotics on Sunday. Patient still complains of generalized weakness, aches and pains in her legs and increase in lower extremity edema. Her torsemide has recently been resumed using her home dose. Patient denies any bright red blood per rectum, melena or black tarry stools, abdominal pain, epigastric pain, nausea or vomiting. No history of gastritis, episodes of esophagitis. Peptic ulcer disease in the past. Complaints of generalized fatigue. Vitals: Temperature 98.4, pulse 113, sinus tachycardia, respiratory rate 17, blood pressure 117/70, 91% on 3 liters nasal cannula. Generally, patient is awake, alert, oriented to person and place. No respiratory distress or use of respiratory accessory muscles. Able to complete full sentences. No conversational dyspnea. No jugular venous distention (JVD) or thyromegaly. Lungs: Air entry is equal bilaterally but diminished. No wheezing, rales or rhonchi. Heart: S1, S2, sinus tachycardia. Abdomen is soft, nontender, nondistended. Obese abdomen. No hepatosplenomegaly, abdominal bruit, rebound guarding. Extremities: Trace edema bilaterally. LABORATORY DATA: White count 8, hemoglobin 7.9, hematocrit 25, platelet count 322. Sodium 137, potassium 3.9, chloride 102, bicarbonate 32, BUN 11, creatinine 0.8, glucose 86. C-reactive protein of 10.8. Stool for blood: No sample. Reticular peripheral smear showed macrocytic anemia with minimal eosinophilia. B12 folate level pending. ASSESSMENT/PLAN: This is an 84-year-old female admitted on 06/01/2019 for generalized weakness found to have a urinary tract infection completed 10 days of Levaquin renally dosed. Urine culture grew out a fecalis resistant to quinolones. Admitted to [facility] with fever of 101, shortness of breath. Was found to have left basilar infiltrate treated with Levaquin most likely due to aspiration pneumonia. Had recurrent fevers with improved white count once she was started on vancomycin and Zosyn. Sputum culture was contaminated. Vancomycin discontinued. Patient was kept on meropenem to continue a full 10- day course, which will finish on Sunday06/22/2019. Patient was subsequently found to be anemic with admission hemoglobin of 9.3 without upper gastrointestinal (GI) bleed. Peripheral smear shows macrocytosis. Retic count is appropriately elevated. CT abdomen and pelvis on 06/17/2019 shows no retroperitoneal bleed, minimal left pleural effusion, bibasilar infiltrates, consolidation in the lower lobes, which is new. Gallstone in the gallbladder and interval take-down of colostomy. In the pelvis, status post hysterectomy. Hemoccult stool is currently unremarkable. MTDD
--- NOTE | 2019-06-21 11:15 | REP ---
LEFT UPPER EXTREMITY DOPPLER VENOUS ULTRASOUND: 06/21/2019. Clinical history: Left upper extremity edema, evaluate for DVT. Midline catheter placed 06/18/2019. Comparison: Catheter insertion images 06/18/2019. Findings: Standard duplex techniques were utilized to evaluate the left upper extremity deep venous system. Subclavian, jugular, axillary and brachial veins were all unremarkable. Midline catheter is in the basilic vein extending from proximal to its mid venous course. There is a nonocclusive clot seen at the tip of the midline catheter along its course while the distal basilic vein is patent. The clot is nonocclusive. The cephalic vein was unremarkable. Impression: 1. Nonocclusive thrombus at the distal tip of the midline catheter in the left basilic vein in the mid venous course and along the catheter itself. The distal basilic vein was intact. No other thrombus within the superficial or deep venous system of the left upper extremity. 2. Since this catheter is in the basilic vein of the superficial venous system, this represents superficial thrombophlebitis. There is no evidence of deep vein thrombosis. Electronically Signed by Ivan Campbell MD 06/21/2019 07:57 P
[2019-06-21 14:00] VITALS: BP 100/59
--- NOTE | 2019-06-21 14:51 | IPN ---
DATE: 06/21/2019 This morning patient says that she would prefer to just go back to [facility] and rehabilitation. Per nursing her left upper arm has some leakage and bloody drainage at the IV site. She currently denies any lightheadedness or dizziness. Complains of generalized weakness, but very motivated and gets up to walk with one person assistance to bathroom. Denies palpitations, lightheadedness, shortness of breath has improved. Lower extremity edema is improved with the torsemide resumed with the home dose. She denies any cough, fever or chills, nausea, vomiting, epigastric pain. Appetite is good. She continues with head tremors, which is chronic. No other issues per nursing. Temperature 98, pulse 93, respiratory rate 18, blood pressure 122/74, 95% on room 3 liters nasal cannula. GENERAL: Head tremors are notable. No jugular venous distention (JVD). No thyromeglay. LUNGS: Diminished bibasilar crackles. HEART: S1, S2, sinus rhythm. ABDOMEN: Soft, nontender, nondistended. EXTREMITIES: Positive edema, which is improved to 1+. LABORATORY DATA: White count 8, hemoglobin 8.2, hematocrit 26. Platelet count 354. Sodium 138, potassium 4.1, chloride 101, bicarbonate 32, BUN 12, creatinine 0.72, glucose of 88. ASSESSMENT AND PLAN: This is an 84-year-old female who lives alone with no help at home, admitted on 06/01 due to urinary tract infection (UTI). Completed 10 days of Levaquin. Urine culture was resistant to quinolones. Grew out enterococcus faecalis. Admitted to [facility] due to fevers of 101 and shortness of breath. Patient most likely had aspiration pneumonia with her current fevers. She was placed on vancomycin and Zosyn. Patient is now on meropenem and to complete a 10 day course which will finish on 06/22/2019. The patient was found to be anemic with no acute GI bleed. MCV is elevated. Macrocytic B12 and folate has been checked. She has heme negative stool. She has been given iron and vitamin C, B12 and folate are still pending. CT abdomen and pelvis showed minimal left pleural effusion, bibasilar infiltrate, gallstones, but no retroperitoneal bleeding. Hemoccult stool again is negative. She current does not want any blood transfusion. Repeat hemoglobin is 8.2, hematocrit 26.4. MTDD
[2019-06-21] MEDS: ACETAMINOPHEN TAB 650MG DOSE (2X325MG) PO PRN (16:23)
[2019-06-21] MEDS ORDERED: RIVAROXABAN 10 MG TAB (XARELTO) PO SCH (18:00)
[2019-06-21] MEDS: ATORVASTATIN 20 MG TAB PO SCH (20:32)
[2019-06-21] MEDS: LATANOPROST 0.005% OPHTH SOLN 2.5 ML OU SCH (20:33)
[2019-06-21 22:00] VITALS: BP 117/63
[2019-06-22] MEDS: ALBUTEROL SULFATE 2.5 MG/0.5 ML INH NEB SOLN NEB SCH ×4 (02:00→20:00)
[2019-06-22] MEDS: LEVOTHYROXINE 100MCG TABLET (0.1MG) PO SCH (05:36)
[2019-06-22] MEDS: MEROPENEM INJ 1 GM in IV 1 EA IV SCH ×3 (05:36→22:22)
[2019-06-22 06:00] VITALS: BP 136/73
[2019-06-22 06:27] LABS: HEMATOCRIT 26.1 % (36.0-47.0); HEMOGLOBIN 8.3 g/dl (12.0-15.5); MEAN CORPUSCULAR HEMOGLOBIN 33.7 pg (27.0-33.0); MEAN CORPUSCULAR HGB CONC 31.8 g/dl (32.0-36.5); MEAN CORPUSCULAR VOLUME 106.1 fl (80.0-96.0); PLATELET COUNT, AUTOMATED 423 10^3/uL (150-450); RED BLOOD COUNT 2.46 10^6/uL (4.00-5.40); WHITE BLOOD COUNT 8.9 10^3/uL (4.0-10.0)
[2019-06-22 06:56] LABS: BLOOD UREA NITROGEN 13 MG/DL (7-18); CALCIUM LEVEL 8.8 MG/DL (8.8-10.2); CARBON DIOXIDE LEVEL 34 MEQ/L (21-32); CHLORIDE LEVEL 102 MEQ/L (98-107); CREATININE FOR GFR 0.79 MG/DL (0.55-1.30); GLOMERULAR FILTRATION RATE > 60.0 (>32); GLUCOSE, FASTING 89 MG/DL (70-100); POTASSIUM SERUM 4.1 MEQ/L (3.5-5.1); SODIUM LEVEL 137 MEQ/L (136-145)
[2019-06-22] MEDS: FORMOTEROL FUMARATE 20 MCG/2 ML INHALATION SOLUTION (PERFOROMIST) INH SCH ×2 (07:51→20:11)
[2019-06-22] MEDS: BUDESONIDE 0.5 MG/2 ML INHALATION SUSPENSION INH SCH ×2 (07:51→20:10)
[2019-06-22] MEDS: TIOTROPIUM INHALER/CAPSULE (SPIRIVA) INH SCH (07:53)
[2019-06-22] MEDS: METOPROLOL SUCC *XL* 25MG TAB (TopROL *XL*) PO SCH ×2 (09:00→09:27)
[2019-06-22] MEDS: SENOKOT S TAB PO SCH ×2 (09:22→22:23)
[2019-06-22] MEDS: PANTOPRAZOLE 40MG TAB (PROTONIX) PO SCH (09:23)
[2019-06-22] MEDS: FERROUS SULFATE 325MG TAB PO SCH ×2 (09:23→22:23)
[2019-06-22] MEDS: FOLIC ACID 1 MG TAB PO SCH (09:23)
[2019-06-22] MEDS: SUCRALFATE 1 GM TAB PO SCH ×2 (09:23→22:24)
[2019-06-22] MEDS: LACTOBACILLUS ACIDOPHILUS CAP (BACID) PO SCH ×3 (09:23→17:04)
[2019-06-22] MEDS: PRIMIDONE 50 MG TAB PO SCH ×3 (09:23→22:23)
[2019-06-22] MEDS: oxyBUTYnin 5 MG TAB PO SCH ×3 (09:23→22:24)
[2019-06-22] MEDS: SPIRONOLACTONE 25 MG TAB PO SCH (09:23)
[2019-06-22] MEDS: sulfaSALAzine 500 MG TABEC PO SCH (09:23)
[2019-06-22] MEDS: ASCORBIC ACID 500 MG TAB PO SCH ×2 (09:24→22:24)
[2019-06-22] MEDS: ENOXAPARIN 40 MG/0.4 ML SYRINGE (J1650) SC SCH (09:24)
[2019-06-22] MEDS: TORSEMIDE 20 MG TAB PO SCH (09:24)
[2019-06-22] MEDS: SODIUM CHLORIDE 0.9% INJ 10 ML SYR IV SCH ×2 (09:26→23:23)
[2019-06-22] MEDS: NYSTATIN 100,000 UNITS/GM TOPICAL PWD 15 GM TOP SCH ×2 (09:26→22:24)
[2019-06-22 14:00] VITALS: BP 124/70
[2019-06-22 22:00] VITALS: BP 118/60
[2019-06-22] MEDS: ATORVASTATIN 20 MG TAB PO SCH (22:23)
[2019-06-22] MEDS: LATANOPROST 0.005% OPHTH SOLN 2.5 ML OU SCH (22:25)
[2019-06-23] MEDS: ALBUTEROL SULFATE 2.5 MG/0.5 ML INH NEB SOLN NEB SCH ×2 (00:10→08:00)
[2019-06-23] MEDS: MEROPENEM INJ 1 GM in IV 1 EA IV SCH (05:27)
[2019-06-23] MEDS: LEVOTHYROXINE 100MCG TABLET (0.1MG) PO SCH (05:27)
[2019-06-23 06:00] VITALS: BP 120/70
[2019-06-23] MEDS: SODIUM CHLORIDE 0.9% INJ 10 ML SYR IV PRN (06:23)
[2019-06-23] MEDS ORDERED: DULERA INH SCH (08:00)
[2019-06-23] MEDS: BUDESONIDE 0.5 MG/2 ML INHALATION SUSPENSION INH SCH (08:05)
[2019-06-23] MEDS: FORMOTEROL FUMARATE 20 MCG/2 ML INHALATION SOLUTION (PERFOROMIST) INH SCH (08:06)
[2019-06-23] MEDS: TIOTROPIUM INHALER/CAPSULE (SPIRIVA) INH SCH (08:06)
[2019-06-23 09:00] VITALS: BP 124/71
[2019-06-23] MEDS ORDERED: INCRUSE ELLIPTA INH SCH (09:00)
[2019-06-23] MEDS: METOPROLOL SUCC *XL* 25MG TAB (TopROL *XL*) PO SCH (09:00)
[2019-06-23] MEDS: PANTOPRAZOLE 40MG TAB (PROTONIX) PO SCH (09:20)
[2019-06-23] MEDS: oxyBUTYnin 5 MG TAB PO SCH (09:21)
[2019-06-23] MEDS: SPIRONOLACTONE 25 MG TAB PO SCH (09:21)
[2019-06-23] MEDS: SENOKOT S TAB PO SCH (09:21)
[2019-06-23] MEDS: sulfaSALAzine 500 MG TABEC PO SCH (09:21)
[2019-06-23] MEDS: SUCRALFATE 1 GM TAB PO SCH (09:21)
[2019-06-23] MEDS: LACTOBACILLUS ACIDOPHILUS CAP (BACID) PO SCH ×2 (09:21→12:41)
[2019-06-23] MEDS: FERROUS SULFATE 325MG TAB PO SCH (09:21)
[2019-06-23] MEDS: TORSEMIDE 20 MG TAB PO SCH (09:21)
[2019-06-23] MEDS: ASCORBIC ACID 500 MG TAB PO SCH (09:21)
[2019-06-23] MEDS: PRIMIDONE 50 MG TAB PO SCH (09:21)
[2019-06-23] MEDS: FOLIC ACID 1 MG TAB PO SCH (09:21)
[2019-06-23] MEDS: SODIUM CHLORIDE 0.9% INJ 10 ML SYR IV SCH (09:22)
[2019-06-23] MEDS: NYSTATIN 100,000 UNITS/GM TOPICAL PWD 15 GM TOP SCH (09:22)
[2019-06-23] MEDS: ENOXAPARIN 40 MG/0.4 ML SYRINGE (J1650) SC SCH (09:22)
[2019-06-23 10:39] LABS: VITAMIN B12 LEVEL 273 PG/ML (247-911)
[2019-06-23 10:40] LABS: FOLATE 5.5 NG/ML (>5.4)
[2019-06-23] MEDS ORDERED: XARE10TA PO (10:49)
[2019-06-23] MEDS ORDERED: FERR325T18 PO (12:55)
[2019-06-23] MEDS ORDERED: SENN-52 PO (12:55)
[2019-06-23] MEDS ORDERED: ASCO50TA PO (12:55)
[2019-06-23] MEDS: ACETAMINOPHEN TAB 650MG DOSE (2X325MG) PO PRN (13:00)
--- NOTE | 2019-06-23 19:43 | IPN ---
DATE: 06/22/2019 Yesterday, the patient was found to have a blood clot due to midline insertion, but this was superficial. She was started on Xarelto 10 mg for 45 days daily. The patient is insistent on going back to [facility] because she likes her physical therapist there. She still requires one person assistance to go to the bathroom. Left upper arm was leaky so the patient's midline is to be discontinue after the last dose of antibiotics today. Afebrile. No chills. No shortness of breath. Still with some cough. Given potassium as needed. No nausea or vomiting. The patient has good bowel movements without any diarrhea. PHYSICAL EXAMINATION: VITAL SIGNS: Temperature 98.1, pulse 92, respiratory rate 18, blood pressure 136/73, 91% on 2 liters nasal cannula. GENERAL: Awake, alert, oriented times three. Answering questions appropriately. No jugular venous distention (JVD). No thyromegaly. Able to speak in full sentences. LUNGS: Diminished with some fine crackles at the bases. HEART: S1, S2. Sinus rhythm. ABDOMEN: Soft, nontender, nondistended. Positive bowel sounds. No rebound or guarding. Hepatosplenomegaly. Obese. EXTREMITIES: 1+ edema. LABORATORY DATA: White count 8.9, hemoglobin 8.3, hematocrit 26, platelet count 423. Sodium 137, potassium 4, chloride 102, bicarbonate 34, BUN 13, creatinine 0.79, glucose of 89. Hemoccult stool 06/21/2019 is negative. ASSESSMENT AND PLAN: This is an 84-year-old female who lives at [facility], admitted on 06/01/2019 due to urinary tract infection (UTI), completed 10 days of Levaquin. Urine culture was resistant to quinolone, Enterococcus, admitted due to recurrent fevers of 101, shortness of breath, most likely secondary to aspiration pneumonia. The patient had been on meropenem and vancomycin. ACTIVE ISSUES: 1. Aspiration pneumonia. The patient is to complete a full course of meropenem for 10 days and last dose is 06/22/2019. She has been on vancomycin previously. 2. Enterococcus urinary tract infection (UTI). Complete meropenem and vancomycin. 3. Anemia with no active gastrointestinal bleed. On B12, folate, iron and vitamin C. CT of the abdomen and pelvis showed no retroperitoneal bleeding. No acute indication for red blood cell transfusion. 4. Superficial clot secondary to midline. Currently on Xarelto 10 mg at night for 45 days. Midline to be discontinued once antibiotics are completed. 5. Deconditioning. The patient is to be evaluated by acute rehabilitation unit. 6. Obesity. Body Mass Index (BMI) of 33.9, complicating care. MTDD
--- NOTE | 2019-06-24 14:06 | DSES ---
DATE OF ADMISSION: 06/13/2019 DATE OF DISCHARGE: 06/23/2019 PRIMARY DISCHARGE DIAGNOSES: 1. Pneumonia. Completed 10 days of antibiotics, had a full 7 days of vancomycin, azithromycin discontinued 06/19/2019 and IV meropenem for presumed aspiration pneumonia. 2. Superficial basilic vein nonocclusive thrombus on Xarelto 10 mg daily for 45 days. 3. Anemia of chronic disease. 4. Urinary tract infection. 5. Diastolic heart failure. 6. Essential tremors. 7. History of cervical dystonia. 8. Hypertension. 9. Hypothyroidism. 10. Hyperlipidemia. 11. Pill esophagitis. 12. Glaucoma. 13. History of rheumatoid arthritis. 14. Obstructive sleep apnea (GALO). 15. Colostomy with reversal. DISCHARGE MEDICATIONS: - 45 days of Xarelto 10 mg daily - ascorbic acid 500 twice a day - ferrous sulfate 325 twice a day - nystatin topical twice a day - oxybutynin 5 three times a day - Senokot two tablets twice a day - acetaminophen 1 gram twice a day and 1 gram every 4 hours as needed - albuterol 2.5 inhaled twice a day - atorvastatin 40 daily - bisacodyl 10 as needed - budesonide 0.5 inhaled twice a day - calcium 1 gram twice a day - vitamin D 2000 at bedtime - Xalatan 1 drop OU daily - levothyroxine 100 mcg daily - MagOx 2.4 grams daily as needed - metoprolol 25 daily - Dulera 2 puffs inhaled twice a day - primidone 250 by mouth three times a day - nortriptyline 10 twice a day - Senokot 2 tabs twice a day - spironolactone 25 daily - sulfasalazine 1 gram daily - torsemide 60 mg three times a week, 40 mg four times a week - INCRUSE Ellipta one puff inhaled daily DISCHARGE INSTRUCTIONS: Patient has completed 10 full days of antibiotics for aspiration pneumonia. Followup with primary care physician within five days of hospital discharge. HOSPITAL COURSE: This is an 84-year-old female who was admitted for generalized weakness, treated as outpatient for urinary tract infection (UTI) with Levaquin which was resistant. Complained of dysuria, abdominal pain, E. Faecalis was found on 06/09/2019 and she was started on Macrobid. She continued to have recurrent fevers, was started on Zosyn and vancomycin. Blood cultures were negative. Patient complained of productive cough with chest x-ray showing left basilar infiltrate. Due to recurrent fevers and generalized weakness, infectious disease specialist was consulted. The patient had improvement in white count from 11,000 to 8.4. She was kept on meropenem for presumed aspiration pneumonia and completed 10 full days of antibiotics. Midline was placed on 06/18 due to poor venous access. We noted some bleeding on 06/21. Venous Doppler showed bleeding at the site and nonocclusive thrombus. She was started on Xarelto 10 mg for 45 days. The patient's torsemide was resumed at the previous dose with good diuresis. Despite being positive balance, her weight had decreased to 78 kilos on discharge. PHYSICAL EXAMINATION ON DISCHARGE: Temperature 98.4, pulse 98, respiratory rate 18, blood pressure 120/70, 94% on 2 liters nasal cannula. General: Awake, alert, oriented, answering questions appropriately. Able to speak in full sentences. Patient has resting head tremors. No jugular venous distention (JVD). No thyromegaly. Left upper arm midline insertion with some bruising. Lungs diminished at the bases bilaterally. Heart S1, S2, tachycardic. Abdomen obese, soft, nontender. Extremities trace edema. LABORATORY DATA: White count 8.9, hemoglobin 8.3, hematocrit 26, platelet count 423. Sodium 137, potassium 4, chloride 102, bicarb 34, BUN 13, creatinine 0.79, glucose of 89. Blood cultures 06/13 no growth after five days. 06/14 blood culture no growth after 5 days. 06/16 two sets of blood cultures no growth. Respiratory panel 06/17 negative. Sputum culture 06/17 oropharyngeal contamination. Hemoccult stool 06/21 negative. IMAGING STUDIES: CT abdomen and pelvis 06/17 left pleural effusion, bibasilar patchy infiltrates, mild to moderate atelectasis consolidation, lower lobe lingula which is new, large gallstone in the gallbladder neck. Interval takedown of colostomy since the prior study with decreased induration, inflammatory change. Status post hysterectomy. Distal rectal monitoring electrodes. CT head 06/17 no acute intracranial abnormality, atrophy and chronic microangiopathic change in supratentorial white matter. Midline insertion procedures during this admission: Midline insertion 06/18/2019, 06/21/2019 nonocclusive thrombus distal tip of midline catheter in the left basilic vein and the mid venous coursing along the catheter itself, distal basilic vein was intact. No other thrombus within the superficial or deep venous systems of the left upper extremity. No evidence of deep vein thrombosis (DVT).
== END 2019-06-23 13:09 | DRG 178 ==
LOC: M ED 11:43 → EDBD 11:43 → M ED INP 14:34 → ENRESERV 14:45 → M MSPAV 15:29
PROVIDERS: ADMIT Internal Medicine Nephrology; ATTEND General Practice
PROC: 05HC33Z Insertion of Infusion Device into Left Basilic Vein, Percutaneous Approach (ICD-10-PCS; principal; 2019-06-19)
DX: J69.0 Pneumonitis due to inhalation of food and vomit (principal); I82.612 Acute embolism and thrombosis of superficial veins of left upper extremity; N39.0 Urinary tract infection, site not specified; I50.30 Unspecified diastolic (congestive) heart failure; J96.11 Chronic respiratory failure with hypoxia; J45.901 Unspecified asthma with (acute) exacerbation; J98.11 Atelectasis; J90 Pleural effusion, not elsewhere classified; J47.1 Bronchiectasis with (acute) exacerbation; D50.0 Iron deficiency anemia secondary to blood loss (chronic); G25.0 Essential tremor; I11.0 Hypertensive heart disease with heart failure; E78.5 Hyperlipidemia, unspecified; E03.9 Hypothyroidism, unspecified; K20.9 Esophagitis, unspecified; H40.9 Unspecified glaucoma; M06.9 Rheumatoid arthritis, unspecified; G47.33 Obstructive sleep apnea (adult) (pediatric); R35.0 Frequency of micturition; Z79.51 Long term (current) use of inhaled steroids; Z79.899 Other long term (current) drug therapy; Z88.1 Allergy status to other antibiotic agents; Z88.4 Allergy status to anesthetic agent; Z88.5 Allergy status to narcotic agent; Z88.6 Allergy status to analgesic agent; Z88.8 Allergy status to other drugs, medicaments and biological substances; Z98.61 Coronary angioplasty status; E66.9 Obesity, unspecified; Z68.33 Body mass index [BMI] 33.0-33.9, adult; R29.6 Repeated falls; Z98.41 Cataract extraction status, right eye; Z98.42 Cataract extraction status, left eye; Z90.79 Acquired absence of other genital organ(s); Z90.49 Acquired absence of other specified parts of digestive tract; B96.20 Unspecified Escherichia coli [E. coli] as the cause of diseases classified elsewhere; K59.00 Constipation, unspecified; B95.2 Enterococcus as the cause of diseases classified elsewhere; K80.20 Calculus of gallbladder without cholecystitis without obstruction

== ENCOUNTER → 2019-06-16 | Outpatient (REF) ==
[~2019-06-16] MED LIST changes: +ACET-683 PO; +ASCO50TA PO; +ATOR40TA75 PO; +AZIT500T5 PO; +BISA10SU27 PR; +FERR325T18 PO; +MILKSUS3 PO; +NITR100C2 PO; +NYST10006 TOP; +OXYB5TAB10 PO; +SEAMKIT PR; +SENN-52 PO; +SYNT100T PO; +XARE10TA PO
== END ==
PROVIDERS: ATTEND Family Medicine
DX: I10 Essential (primary) hypertension (principal)

== ENCOUNTER → 2019-06-26 | Outpatient (REF) ==
[2019-06-26 12:20] LABS: HEMATOCRIT 28.1 % (36.0-47.0); HEMOGLOBIN 8.9 g/dl (12.0-15.5); MEAN CORPUSCULAR HEMOGLOBIN 33.7 pg (27.0-33.0); MEAN CORPUSCULAR HGB CONC 31.7 g/dl (32.0-36.5); MEAN CORPUSCULAR VOLUME 106.4 fl (80.0-96.0); PLATELET COUNT, AUTOMATED 495 10^3/uL (150-450); RED BLOOD COUNT 2.64 10^6/uL (4.00-5.40)
[2019-06-26 12:47] LABS: CALCIUM LEVEL 9.9 MG/DL (8.8-10.2); CREATININE FOR GFR 0.96 MG/DL (0.55-1.30); GLOMERULAR FILTRATION RATE 58.8 (>32); PERCENT SATURATION 18.6 % (13.2-45.0)
== END ==
PROVIDERS: ATTEND Family Medicine
DX: D64.9 Anemia, unspecified (principal)

== ENCOUNTER → 2019-06-29 | Outpatient (REF) ==
[2019-06-29 15:15] LABS: APPEARANCE, URINE CLEAR (CLEAR); BACTERIA, URINE AUTO 2+ (NEGATIVE); BILIRUBIN, URINE AUTO NEGATIVE (NEGATIVE); BLOOD, URINE BLOOD NEGATIVE (NEGATIVE); COLOR, URINE YELLOW (YELLOW); GLUCOSE, URINE (UA) AUTO NEGATIVE (NEGATIVE); KETONE, URINE AUTO NEGATIVE (NEGATIVE); LEUKOCYTE ESTERASE, URINE AUTO 2+ (NEGATIVE); MUCUS, URINE SMALL (NEGATIVE); NITRITE, URINE AUTO NEGATIVE (NEGATIVE); PROTEIN, URINE AUTO NEGATIVE (NEGATIVE); RBC, URINE AUTO 3 /HPF (0-3); SPECIFIC GRAVITY URINE AUTO 1.005 (1.002-1.035); SQUAMOUS EPITHELIAL CELL UR AU 2 /HPF (0-6); UROBILINOGEN, URINE AUTO 0.2 mg/dL (0.0-2.0); WBC, URINE AUTO 3 /HPF (0-3)
== END ==
PROVIDERS: ATTEND Family Medicine
DX: R35.0 Frequency of micturition (principal)

== ENCOUNTER → 2019-06-30 | Outpatient (REF) ==
[2019-06-30 10:11] LABS: HEMATOCRIT 29.6 % (36.0-47.0); HEMOGLOBIN 8.9 g/dl (12.0-15.5); MEAN CORPUSCULAR HEMOGLOBIN 32.5 pg (27.0-33.0); MEAN CORPUSCULAR HGB CONC 30.1 g/dl (32.0-36.5); PLATELET COUNT, AUTOMATED 466 10^3/uL (150-450); RED BLOOD COUNT 2.74 10^6/uL (4.00-5.40); WHITE BLOOD COUNT 7.4 10^3/uL (4.0-10.0)
[2019-06-30 10:37] LABS: BLOOD UREA NITROGEN 19 MG/DL (7-18); CALCIUM LEVEL 9.2 MG/DL (8.8-10.2); CARBON DIOXIDE LEVEL 31 MEQ/L (21-32); CHLORIDE LEVEL 101 MEQ/L (98-107); CREATININE FOR GFR 0.92 MG/DL (0.55-1.30); GLOMERULAR FILTRATION RATE > 60.0 (>32); GLUCOSE, FASTING 108 MG/DL (70-100); POTASSIUM SERUM 4.3 MEQ/L (3.5-5.1); SODIUM LEVEL 138 MEQ/L (136-145)
== END ==
PROVIDERS: ATTEND Family Medicine
DX: D64.9 Anemia, unspecified (principal); Z79.899 Other long term (current) drug therapy

== ENCOUNTER 2019-07-03 04:54 | Inpatient (IN) | payer MEDICARE ==
[2019-07-03] VITALS (70 sets, daily range): BP systolic 63–135; BP diastolic 28–73
[~2019-07-03] VITALS: Ht 152.4 cm; Wt 82.1 kg
[~2019-07-03 04:54] MED LIST changes: -IRBE150T12 PO; +IRBE150T7 PO; -MONT10TA2 PO; +MONT10TA4 PO
[2019-07-03 05:34] LABS: BASO % 0.1 % (0.0-1.0); EOS # 0.1 10^3/uL (0.0-0.5); EOS % 1.6 % (0.0-3.0); HEMATOCRIT 30.2 % (36.0-47.0); HEMOGLOBIN 9.6 g/dl (12.0-15.5); LYMPH # 0.3 10^3/uL (1.5-5.0); LYMPH % 3.1 % (24.0-44.0); MEAN CORPUSCULAR HEMOGLOBIN 33.4 pg (27.0-33.0); MEAN CORPUSCULAR HGB CONC 31.8 g/dl (32.0-36.5); MEAN CORPUSCULAR VOLUME 105.2 fl (80.0-96.0); MONO # 0.1 10^3/uL (0.0-0.8); MONO % 1.3 % (0.0-5.0); NEUTROPHILS # 7.6 10^3/uL (1.5-8.5); NEUTROPHILS % 93.7 % (36.0-66.0); PLATELET COUNT, AUTOMATED 501 10^3/uL (150-450); RED BLOOD COUNT 2.87 10^6/uL (4.00-5.40); WHITE BLOOD COUNT 8.2 10^3/uL (4.0-10.0)
[2019-07-03] MEDS ORDERED: PIPERACILLIN/TAZOBACTAM SOD 3.375 GM in D5W MINI-BAG PLUS 50 ML IV ONE (05:45)
[2019-07-03] MEDS ORDERED: ACETAMINOPHEN TAB 650MG DOSE (2X325MG) PO ONE (05:45)
[2019-07-03] MEDS ORDERED: NS IV ONE (05:45)
[2019-07-03] MEDS ORDERED: MACR100C43 PO (05:52)
[2019-07-03] MEDS ORDERED: XARE10TA PO (05:52)
[2019-07-03 05:56] LABS: BLOOD UREA NITROGEN 19 MG/DL (7-18); CARBON DIOXIDE LEVEL 28 MEQ/L (21-32); CHLORIDE LEVEL 105 MEQ/L (98-107); CK-MB VALUE MASS < 1.0 NG/ML (<3.6); CPK CREATINE PHOSPHOKINASE 92 U/L (26-192); CREATININE FOR GFR 1.03 MG/DL (0.55-1.30); GLOMERULAR FILTRATION RATE 54.2 (>32); GLUCOSE, FASTING 104 MG/DL (70-100); MB/CK RELATIVE INDEX 1.09 (< OR =4); POTASSIUM SERUM 5.1 MEQ/L (3.5-5.1); SODIUM LEVEL 140 MEQ/L (136-145); TROPONIN I < 0.02 NG/ML (< 0.10)
[2019-07-03 05:59] LABS: INFLUENZA A AMPLIFICATION NEGATIVE (NEGATIVE); INFLUENZA B AMPLIFICATION NEGATIVE (NEGATIVE)
[2019-07-03] MEDS ORDERED: CHEW500C2 PO (06:05)
[2019-07-03] MEDS ORDERED: MILKSUS3 PO (06:17)
[2019-07-03] MEDS ORDERED: FERR325T18 PO (06:17)
[2019-07-03] MEDS ORDERED: FLEEENE12 PR (06:17)
[2019-07-03] MEDS ORDERED: ASCO500T PO (06:17)
[2019-07-03] MEDS ORDERED: SENN-23 PO (06:17)
--- NOTE | 2019-07-03 06:18 | REPVR ---
PROCEDURE INFORMATION: Exam: CT Abdomen And Pelvis Without Contrast Exam date and time: 07/03/2019 5:33 AM Age: 84 years old Clinical indication: Abdominal pain; Generalized; Additional info: Abd pain, sepsis TECHNIQUE: Imaging protocol: Computed tomography of the abdomen and pelvis without contrast. Radiation optimization: All CT scans at this facility use at least one of these dose optimization techniques: automated exposure control; mA and/or kV adjustment per patient size (includes targeted exams where dose is matched to clinical indication); or iterative reconstruction. COMPARISON: CT ABD PELVIS W/O CONTRAST 06/17/2019 2:21 AM FINDINGS: Lungs: Mild bilateral lower lobe atelectasis or consolidation with minimal bibasilar interstitial prominence and fibro-atelectatic change. There is a 5 mm nodule in the lateral right lower lobe. Liver: Normal. No mass. Gallbladder and bile ducts: There is a gallstone in the gallbladder measuring 2.6 cm. Pancreas: Normal. No ductal dilation. Spleen: Normal. No splenomegaly. Adrenals: Normal. No mass. Kidneys and ureters: Normal. No hydronephrosis. Stomach and bowel: There is a diverticulum projecting from the proximal duodenal sweep. Rectosigmoid anastomosis. Appendix: A normal appendix is seen. Intraperitoneal space: Unremarkable. No free air. No significant fluid collection. Vasculature: There is moderate atherosclerotic calcification of the abdominal aorta with extension into the iliac arteries. Lymph nodes: Unremarkable. No enlarged lymph nodes. Bladder: Unremarkable as visualized. Reproductive: Status post hysterectomy. Bones/joints: Unremarkable. No acute fracture. Soft tissues: Residua of midline pelvic incision. IMPRESSION: 1. Resolution of left pleural effusion since 06/17/2019. There is persistent bilateral lower lobe atelectasis or consolidation and minimal bibasilar fibro-atelectatic change and interstitial prominence with slightly decreased patchy infiltrates. There is slightly decreased lingular atelectasis or consolidation. A 5 mm lateral right base nodule is unchanged. For patients at low risk (minimal or absent history of smoking and of other known risk factors), no routine follow-up is indicated. For patients at high risk (history of smoking or of other known risk factors), consider optional CT at 12 months. (Iram et al., Fleischner Society, 2017) 2. Cholelithiasis with large gallstone. 3. Status post partial colonic resection with rectosigmoid anastomosis. 4. Status post hysterectomy. Electronically signed by: Williams Sanchez On 07/03/2019 06:18:04 AM
[2019-07-03] MEDS ORDERED: NYST1POW9 TOP (06:24)
--- NOTE | 2019-07-03 07:39 | REP ---
Portable chest, 05:47 a.m., single AP view with the the patient sitting: Comparison is a portable chest of 06/16/2019. The left lower lobe infiltrate has improved. There is a persisting left pleural effusion. Right lung is clear. Cardiac size normal. Judy, mediastinum, skeletal structures are unremarkable. Impression: Improved left lower lobe infiltrate. Persisting left pleural effusion. Electronically Signed by Evgeny Russ MD 07/03/2019 07:31 A
[2019-07-03] MEDS ORDERED: ACETAMINOPHEN 325 MG TAB PO ONE (07:45)
[2019-07-03] MEDS: BUDESONIDE 0.5 MG/2 ML INHALATION SUSPENSION INH SCH ×3 (08:00→21:15)
[2019-07-03] MEDS ORDERED: FLEET ENEMA PR PRN (08:30)
[2019-07-03] MEDS ORDERED: BISACODYL 10 MG SUPP PR PRN (08:30)
[2019-07-03] MEDS ORDERED: ALBUTEROL SULFATE 2.5 MG/0.5 ML INH NEB SOLN NEB PRN (08:30)
[2019-07-03] MEDS ORDERED: NYSTATIN 100,000 UNITS/GM TOPICAL PWD 15 GM TOP PRN ×2 (08:30→08:48)
[2019-07-03] MEDS ORDERED: IPRATROPIUM 0.5MG/ALBUTEROL 2.5MG INH SOL UD 3ML (DUONEB)(J7620) As Ordered ONE (08:45)
[2019-07-03] MEDS: IPRATROPIUM 0.5MG/ALBUTEROL 2.5MG INH SOL UD 3ML (DUONEB)(J7620) NEB SCH ×4 (08:47→21:15)
[2019-07-03] MEDS ORDERED: sulfaSALAzine 500 MG TABEC PO SCH (09:00)
[2019-07-03] MEDS ORDERED: CALCIUM CARBONATE 500 MG CHEW U/D PO SCH (09:00)
[2019-07-03] MEDS: FERROUS SULFATE 325MG TAB PO SCH (11:20)
[2019-07-03] MEDS: LEVOTHYROXINE 100MCG TABLET (0.1MG) PO SCH (11:20)
[2019-07-03] MEDS: NORTRIPTYLINE 10 MG CAP PO SCH ×2 (11:20→20:05)
[2019-07-03] MEDS: PRIMIDONE 250 MG TAB PO SCH ×3 (11:20→20:05)
[2019-07-03] MEDS: ASCORBIC ACID 500 MG TAB PO SCH (11:20)
[2019-07-03] MEDS: CALCIUM/VITAMIN D 500 MG TAB PO SCH ×2 (11:20→20:05)
[2019-07-03] MEDS: SENOKOT S TAB PO PRN (11:21)
[2019-07-03] MEDS: PIPERACILLIN/TAZOBACTAM SOD 2.25 GM in D5W MINI-BAG PLUS 50 ML IV SCH ×3 (11:23→23:37)
[2019-07-03] MEDS ORDERED: PIPERACILLIN/TAZOBACTAM SOD 3.375 GM in D5W MINI-BAG PLUS 50 ML IV SCH (12:00)
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
[2019-07-03] MEDS ORDERED: NOREPINEPHRINE 4 MG/4 ML AMP As Ordered ONE (12:38)
[2019-07-03] MEDS ORDERED: NOREPINEPHRINE BITARTRATE 16 MG in D5W 484 ML IV SCH ×2 (13:00→14:10)
--- NOTE | 2019-07-03 14:01 | REP ---
Portable chest x-ray: Single view. History: Status post left internal jugular CBC placement. Comparison is made with chest CT study from June 17, 2019 and chest x-ray from July 03, 2019. Findings: The left internal jugular central venous line is seen terminating in the expected location of the brachiocephalic vein SVC junction to the right of midline. There is no evidence of pneumothorax. There is increased density in the left lower lobe obscuring the left hemidiaphragm in the descending aorta consistent with atelectasis. There is blunting of the left lateral pleural angle indicating some left pleural fluid. Impression: Left IJ line at the SVC brachiocephalic vein junction to the right of midline. No pneumothorax seen. There is atelectasis in the left lower lobe and blunting of the left lateral pleural angle. Electronically Signed by Uriel Gilman MD 07/03/2019 02:40 P
[2019-07-03 14:32] LABS: THYROID STIMULATING HORMONE 0.292 uIU/ML (0.358-3.740)
--- NOTE | 2019-07-03 14:41 | RO ---
DATE OF PROCEDURE: 07/03/2019 INTERNAL JUGULAR CENTRAL LINE PROCEDURE NOTE INDICATION: Vasopressor administration. PREPROCEDURE DIAGNOSIS: Septic shock. POSTPROCEDURE DIAGNOSIS: Septic shock. ATTENDING PHYSICIAN: Dr. He Consent was obtained from the patient's family and verbally from the patient prior to the procedure. Indication, risks and benefits were explained at length. PROCEDURE SUMMARY: A central line insertion practice form was completed by independent observer starting the first hand wash prior to starting sterile technique. A time-out was performed. Full sterile technique was maintained throughout procedure including surgical cap, mask with protective eye wear, full gown and sterile gloves. The patient was placed in Trendelenburg position and the left neck and chest region was prepped using chlorhexidine scrub and draped in sterile fashion using a full drape and sterile probe cover employed. The left internal jugular vein was identified using the ultrasound. Anesthesia was achieved over the vein using 1% lidocaine. Using real time out of plane guidance the introducer needle was inserted into the left internal jugular vein under direct ultrasound visualization. Venous blood was drawn. The syringe was removed and a guidewire was advanced into the introducer needle. The introducing needle was removed over the guidewire. A small incision was made at the skin surface with scalpel and a dilator was exchanged over the guidewire. After appropriate dilation was obtained, the dilator was exchanged over the wire for a triple lumen central venous catheter. The wire was removed and the catheter was sutured in place at 20 cm. A sterile chlorhexidine impregnated dressing was placed over the catheter at the insertion site. The patient tolerated procedure without any hemodynamic compromise. At time of procedure completion all ports aspirated and flushed properly. Postprocedure chest x-ray showed the left IJ in place at the tip at the end of the brachiocephalic vein and the upper port of the superior vena cava. There no pneumothorax. The estimated blood loss is less than 5 mL. MTDD
[2019-07-03] MEDS: methylPREDNISolone INJ 125 MG/2 ML VIAL (J2930) IV SCH ×2 (14:42→23:38)
[2019-07-03] MEDS: ENOXAPARIN 100MG/1ML SYRINGE (J1650) SC SCH ×2 (14:42→23:37)
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
--- NOTE | 2019-07-03 14:58 | REP ---
Right upper quadrant sonography: History: Sepsis evaluation. Exam done portably. Findings: Scanning through right upper quadrant of the abdomen demonstrates a dilated thin-walled gallbladder containing a large mobile 2.8 cm shadowing calculus. The gallbladder measures 10.0 x 5.0 x 5.5 cm. There is no tenderness to scanning over the gallbladder. Common bile duct is at the upper range of normal in size measuring 0.8 cm. No focal hepatic lesion is seen. The liver is not felt to be enlarged. There is no evidence of ascites. The right renal cortical parenchyma is hyperechoic consistent with chronic medical renal disease. There is a cyst in the upper pole measuring 1.4 cm and a 1.4 cm cyst is also visible in the mid pole of the right kidney. There is a tiny subcentimeter cyst in the lower pole. Right renal dimensions are 10.2 x 5.3 x 4.1 cm. Pancreas shows no abnormality. Impression: 1. Cholelithiasis. 2. Mildly dilated but thin-walled nontender gallbladder. 3. CBD 8 mm upper range of normal. 4. Increased renal cortical echogenicity pattern right kidney consistent with chronic medical renal disease. Small right renal cysts. Electronically Signed by Uriel Gilman MD 07/03/2019 04:53 P
--- NOTE | 2019-07-03 15:16 | ECGEPIP ---
[facility] - ED Test Date: 2019-07-03 Pat Name: STEFANO ROLDAN Department: Room: - Gender: Female Master Cook: : [id number] Requested By: RACHEL Cifuentes Order Number: [id number] Reading MD: Phillip Siegel Measurements Intervals [place] Rate: 138 P: 24 IN: 126 QRS: 6 QRSD: 77 T: 39 QT: 316 QTc: 480 Interpretive Statements SINUS TACHYCARDIA Significant motion artifact limits interpretation Electronically Signed on 07-03-2019 15:16:20 EST by Phillip Siegel
[2019-07-03] MEDS: ACETAMINOPHEN 500 MG TAB PO PRN ×2 (15:26→23:39)
[2019-07-03] MEDS ORDERED: RIVAROXABAN 10 MG TAB (XARELTO) PO SCH (18:00)
[2019-07-03] MEDS: LATANOPROST 0.005% OPHTH SOLN 2.5 ML OU SCH (20:04)
[2019-07-03] MEDS: ATORVASTATIN 20 MG TAB PO SCH (20:05)
[2019-07-03] MEDS: VITAMIN D 1,000 INTERNATIONAL UNITS TABLET PO SCH (20:05)
[2019-07-04] VITALS (22 sets, daily range): BP systolic 91–125; BP diastolic 50–70
[2019-07-04] MEDS: IPRATROPIUM 0.5MG/ALBUTEROL 2.5MG INH SOL UD 3ML (DUONEB)(J7620) NEB SCH ×6 (00:43→20:43)
[2019-07-04] MEDS ORDERED: NOREPINEPHRINE BITARTRATE 16 MG in D5W 484 ML IV SCH ×2 (01:00→09:00)
[2019-07-04 04:53] LABS: HEMATOCRIT 27.3 % (36.0-47.0); HEMOGLOBIN 8.2 g/dl (12.0-15.5); MEAN CORPUSCULAR HEMOGLOBIN 32.4 pg (27.0-33.0); MEAN CORPUSCULAR VOLUME 107.9 fl (80.0-96.0); RED BLOOD COUNT 2.53 10^6/uL (4.00-5.40); WHITE BLOOD COUNT 11.4 10^3/uL (4.0-10.0)
[2019-07-04 05:08] LABS: PLATELET COUNT, AUTOMATED 384 10^3/uL (150-450)
[2019-07-04 05:25] LABS: BLOOD UREA NITROGEN 20 MG/DL (7-18); CARBON DIOXIDE LEVEL 27 MEQ/L (21-32); CHLORIDE LEVEL 110 MEQ/L (98-107); CREATININE FOR GFR 0.91 MG/DL (0.55-1.30); GLOMERULAR FILTRATION RATE > 60.0 (>32); GLUCOSE, FASTING 114 MG/DL (70-100); SODIUM LEVEL 143 MEQ/L (136-145)
[2019-07-04] MEDS: PIPERACILLIN/TAZOBACTAM SOD 2.25 GM in D5W MINI-BAG PLUS 50 ML IV SCH ×3 (05:35→20:24)
[2019-07-04] MEDS: LEVOTHYROXINE 100MCG TABLET (0.1MG) PO SCH (05:35)
[2019-07-04 07:33] LABS: ALBUMIN 1.9 GM/DL (3.2-5.2); ALT/SGPT 8 U/L (12-78); BILIRUBIN,DIRECT 0.2 MG/DL (0.0-0.2); BILIRUBIN,TOTAL 0.4 MG/DL (0.2-1.0); TOTAL PROTEIN 6.7 GM/DL (6.4-8.2)
[2019-07-04 07:34] LABS: BASO % 0.2 % (0.0-1.0); EOS # 0.1 10^3/uL (0.0-0.5); LYMPH # 0.3 10^3/uL (1.5-5.0); LYMPH % 2.6 % (24.0-44.0); MONO # 0.2 10^3/uL (0.0-0.8); MONO % 2.1 % (0.0-5.0); NEUTROPHILS # 10.7 10^3/uL (1.5-8.5); NEUTROPHILS % 93.7 % (36.0-66.0)
[2019-07-04] MEDS: BUDESONIDE 0.5 MG/2 ML INHALATION SUSPENSION INH SCH ×2 (08:37→20:42)
[2019-07-04 09:18] LABS: FREE T4 1.35 NG/DL (0.76-1.46)
--- NOTE | 2019-07-04 09:51 | IPN ---
DATE: 07/04/2019 I attended Bonnie Ball here in the intensive care unit. The patient has been examined, the chart reviewed. I spoke at length with the patient as well as her daughter Marybeth at the bedside. She remains on low dose Levophed. Maximum temperature (T-max) overnight 98.8, blood pressure between 91 and 112 systolic. Heart rate 94-104, respiratory rate generally 18-22 without accessory muscle use. Input and output midnight to midnight 1860 mL in with 625 mL out. White blood cell count this morning 11.4, hemoglobin 8.2, platelet count 384,000, 93.7% segs, no bands. Sodium 143, potassium 4.0, chloride 110, CO2 27, BUN 20, creatinine 0.91, glucose of 114. C reactive protein likely elevated at 18.3, BNP remains elevated at 1199. Albumin depressed at 1.9. TSH also low at 0.292. Blood cultures negative to date. Urine culture shows no growth and her respiratory panel was negative. I reviewed her available x-ray. Her CT scan of the abdomen and pelvis does suggest some findings at bilateral bases with evidence of severe bronchograms that certainly could be residual infiltrate. On exam, she is awake, alert, and appropriate. Pupils do react. Sclerae are clear. Membranes are moist. Neck with diminished mobility. Chest shows diminished but symmetric expansion. There are bibasilar crackles with some evidence of egophony. She does have some coarse rhonchi especially at the bases that do not completely clear with cough. No focal wheeze. No obvious rubs. Cardiac exam is distant but regular. Peripheral pulses are palpable with at least 1+ pitting lower extremity edema bilaterally. Abdomen obese, soft, nontender with active bowel sounds. No convincing organomegaly or masses. Extremities show no cyanosis or clubbing. Neurologically, she is awake, alert and appropriate. Psychiatric: Appropriate mood and affect. Pulse oximetry between 90-99% on the Vapotherm. She is down to 50% FiO2 and intermittently actually has it off. IMPRESSION: 1. Obstructive lung disease/asthma with mal clearance of secretions. 2. Persistent findings at the bases. 3. Fever, etiology remains somewhat unclear. 4. Hypotension, improving on vasopressors. RECOMMENDATION: A very lengthy discussion was had at the bedside with the patient and her daughter. At this point, I am in agreement with her Zosyn. No evidence of Staphylococcus aureus (MRSA) to this point. Certainly, there still could be an unknown viral cause for her fever as it was somewhat acute and very short lived. However, her CRP is quite elevated suggesting an ongoing inflammatory process. We await he procalcitonin. In the interim, will continue on her current antimicrobials. We will increase interventions to help clear secretions with chest physiotherapy (PT) and expectorants and the addition of EzPAP with her nebulizers. I encouraged her to be up out-of-bed as I do believe this will assist with any atelectasis as well as encourage clearance of secretions. Other workup is proceeding. Further recommendations will be made in the progress record as new information becomes available.
[2019-07-04] MEDS: CALCIUM/VITAMIN D 500 MG TAB PO SCH ×2 (09:57→20:26)
[2019-07-04] MEDS: PRIMIDONE 250 MG TAB PO SCH ×3 (09:57→20:28)
[2019-07-04] MEDS: FERROUS SULFATE 325MG TAB PO SCH (09:58)
[2019-07-04] MEDS: NORTRIPTYLINE 10 MG CAP PO SCH ×2 (09:58→20:24)
[2019-07-04] MEDS: ASCORBIC ACID 500 MG TAB PO SCH (09:58)
[2019-07-04] MEDS: guaiFENesin ER 600 MG TAB PO SCH ×2 (09:58→20:26)
--- NOTE | 2019-07-04 11:20 | IPNPDOC ---
Text Note Date of Service The patient was seen on 07/04/19. NOTE SUBJECTIVE: Patient was examined at bedside. Patient and daughter was very con cerned about his current condition. Significant great deal of time was spent talking to daughter, the patient explaining current medication, current treatment plan, laboratory results as well as imaging. Patient denied any pain, but the report cough and some breathing discomfort. Patient had 101, MAXIMUM TEMPERATURE overnight. OBJECTIVE: PHYSICAL EXAMINATION: GENERAL APPEARANCE: Elderly female, resting comfortably in bed, currently undergoing nebulizer treatment. Occasional cough, no sputum production ENT: Somewhat dry oral mucous membranes, SKIN: No bruising, no works, no sinus infection between patient's toes LUNGS: Wheezing heard. Bilateral upper and lower lung gardner, no rhonchi, HEART: Normal S1, S2. No murmurs, no rubs, no gallops ABDOMEN: Obese abdomen, nontender, bowel sounds present. EXTREMITIES: 2+ nonpitting edema. No gross deformity, no discoloration, did report pain in her right great toe, PULSES: 2+ upper and lower extremity . LABORATORY DATA: Please see below. ASSESMENT This is a 84-year-old female with a history of multiple UTIs, admitted for sepsis secondary to urinary tract infection. She is status post sepsis fluid resuscitation. Currently with on zosyn for a prior urine culture positive for Klebsiella pneumonia sensitive to Zosyn. Patient also has pulmonary/intensive care consult for sepsis. PLAN: #Sepsis secondary to presumably urinary tract infection, will also broaden the differential and investigate for another cause of patient's septic appearance. Because patient continues to spike fevers overnight. Her current MAXIMUM TEMPERATURE overnight was 101 -IV Zosyn on board, -UA was positive for trace leukocytes, 13 WBC, bacteria +2. Urine cultures negative. Her prior culture was dated 06/29/2019, and patient was on Macrobid prior to admission. It is my suspicion that patient has been adequately treated for urinary tract infection prior to presentation. We'll continue antibiotics, due to overnight fevers. While pending pro-calcitonin -Blood cultures negative -TTE to investigate for endocarditis -MRSA screen pending -Elevated C-reactive protein elevated. This Raises suspicions for an inflammatory process -Currently on levophed to maintain adequate blood pressure, patient has appropriate MAP #Leukocytosis -Most likely secondary to Solu-Medrol use. We'll continue monitor. #Acute on chronic hypoxic respiratory failure -Currently on oxygen, Vapotherm, Superficial basilic vein nonocclusive thrombus diagnosed at last hospital stay -Started on Xarelto 10 mg daily for a total on 45 days. Started on June 21 -On hold during hospital stay. She will be placed on Lovenox. #Hypotension and urosepsis with septic shock, patient has been responsive to fluids, -Currently on levophed to maintain adequate blood pressure, patient has a ppropriate MAP #Diastolic CHF -status post 2,410 ml of IV fluids -Will continue to monitor -Will hold diuretics for now due to hypotension #Essential Tremors on Botulinium injections continue primidone #CAD status post PCI -c/w statin - Hold metoprolol #Hypothyroidism -synthroid #Hypertension -Hold metoprolol #Hyperlipidemia -continue statin #Obesity with GALO -untreated, does not use CPAP -Will place her on CPAP at night #DVT -Lovenox VS,Fishbone, I+O VS, Fishbone, I+O Laboratory Tests 07/04/19 04:39 Vital Signs Date Time Temp Pulse Resp B/P (MAP) Pulse Ox O2 Delivery O2 Flow Rate FiO2 07/04/19 10:00 112 28 94/57 (69) 96 HVNI-Vapotherm 17.0 50 07/04/19 08:00 99.2 I&O- Last 24 Hours up to 6 AM 07/04/19 06:00 Intake Total 1880 ml Output Total 875 ml Balance 1005 ml GME ATTESTATION GME ATTESTATION My faculty preceptor for this patient encounter was physically present during the encounter and was fully available. All aspects of the patient interview, examination, medical decision making process, and medical care plan development were reviewed and approved by the faculty preceptor. The faculty preceptor is aware and concurs with the plan as stated in the body of this note and will attest to such by his/her cosignature. ATTENDING NOTE 84-year-old W with a history of multiple UTIs, ad recent history of PNA now readmitted for septic shock in the setting of recent Klebs UTI per 2/2 UCx with course c/b peristent shock requiring levophed and hypoxemic respiratory failure requiring HFNC and persistent fever, now afebrile since 07/03, with declining O2 requirements and remaining on zosyn with ongoing infectious source workup. OBDULIO BOWIE DO Jul 04, 2019 11:20 PATRICIA MCCAIN MD Jul 05, 2019 09:01
[2019-07-04] MEDS: ENOXAPARIN 100MG/1ML SYRINGE (J1650) SC SCH (13:00)
[2019-07-04] MEDS: methylPREDNISolone INJ 125 MG/2 ML VIAL (J2930) IV SCH (13:01)
--- NOTE | 2019-07-04 20:03 | ECHO ---
DATE OF PROCEDURE: 07/04/2019 REFERRING PHYSICIAN: Alicia Oviedo MD INDICATION: Endocarditis. HEIGHT: 152 cm WEIGHT: 82 kg DIMENSIONS: IVS: 1.1 LV: 4.4 LVPW: 1.0 LA: 2.9 Aorta: 2.9 RV: 3.3 IVC: 1.3 Mitral E wave velocity: 84, A wave: 119 E prime septal: 4.3 E prime lateral: 8.1 FINDINGS: The study is of fair technical quality. The patient is in sinus tachycardia. Left ventricle is normal size and overall likely normal systolic function based on fair views. I estimate left ventricular ejection fraction (LVEF) around 65%. No distinct segmental wall motion abnormalities are appreciated. Right ventricle also normal size and systolic function. Both atria appear normal. Aortic valve was poorly visualized. It is sclerotic and there is some restriction of mobility, but it appears minimal. I do not appreciate any vegetations. Mitral valve appears grossly normal. No distinct structural abnormalities seen. Tricuspid valve appears grossly normal based on limited views. Pulmonic valve was not well visualized. Prominent pericardial fat pad but no effusion is noted. Inferior vena cava is normal size. Aortic root, aortic arch and abdominal aorta appear grossly normal. Doppler interrogation of aortic valve reveals no significant insufficiency and trivial stenosis with peak gradient 13 and mean gradient 6 mmHg. Pulmonic valve is functionally competent. Same applies with tricuspid valve. Mitral inflow pattern and tissue Doppler imaging of mitral annulus reveal grade 1 diastolic dysfunction. CONCLUSION 1. Study is of fair technical quality, the patient is in sinus rhythm. 2. Normal LV size with grossly preserved LV systolic function and grade 1 diastolic dysfunction. 3. Aortic sclerosis with trivial stenosis and no insufficiency. 4. Functionally competent mitral and tricuspid valves. 5. Likely normal central venous pressure. Unable to estimate pulmonary artery pressure. 6. No visualized vegetations to confirm presence of bacterial endocarditis. COMMENT: If high clinical suspicion for endocarditis, transesophageal echocardiogram will provide much better resolution.
[2019-07-04] MEDS: VITAMIN D 1,000 INTERNATIONAL UNITS TABLET PO SCH (20:24)
[2019-07-04] MEDS: ATORVASTATIN 20 MG TAB PO SCH (20:24)
[2019-07-04] MEDS: LATANOPROST 0.005% OPHTH SOLN 2.5 ML OU SCH (20:28)
[2019-07-04] MEDS: MOM 30ML SUSPENSION UDC PO PRN (22:04)
[2019-07-05] VITALS (17 sets, daily range): BP systolic 108–149; BP diastolic 56–85
[2019-07-05] MEDS: methylPREDNISolone INJ 125 MG/2 ML VIAL (J2930) IV SCH ×2 (00:18→12:48)
[2019-07-05] MEDS: ENOXAPARIN 100MG/1ML SYRINGE (J1650) SC SCH ×2 (00:19→12:48)
[2019-07-05] MEDS: PIPERACILLIN/TAZOBACTAM SOD 2.25 GM in D5W MINI-BAG PLUS 50 ML IV SCH ×4 (00:19→17:01)
[2019-07-05] MEDS: IPRATROPIUM 0.5MG/ALBUTEROL 2.5MG INH SOL UD 3ML (DUONEB)(J7620) NEB SCH ×7 (00:49→23:33)
[2019-07-05 05:16] LABS: HEMATOCRIT 23.5 % (36.0-47.0); HEMOGLOBIN 7.4 g/dl (12.0-15.5); MEAN CORPUSCULAR HEMOGLOBIN 33.5 pg (27.0-33.0); MEAN CORPUSCULAR HGB CONC 31.5 g/dl (32.0-36.5); MEAN CORPUSCULAR VOLUME 106.3 fl (80.0-96.0); PLATELET COUNT, AUTOMATED 321 10^3/uL (150-450); RED BLOOD COUNT 2.21 10^6/uL (4.00-5.40); WHITE BLOOD COUNT 5.3 10^3/uL (4.0-10.0)
[2019-07-05 05:42] LABS: BLOOD UREA NITROGEN 22 MG/DL (7-18); CALCIUM LEVEL 8.2 MG/DL (8.8-10.2); CARBON DIOXIDE LEVEL 29 MEQ/L (21-32); CHLORIDE LEVEL 108 MEQ/L (98-107); CREATININE FOR GFR 0.81 MG/DL (0.55-1.30); GLOMERULAR FILTRATION RATE > 60.0 (>32); GLUCOSE, FASTING 109 MG/DL (70-100); POTASSIUM SERUM 4.4 MEQ/L (3.5-5.1); SODIUM LEVEL 140 MEQ/L (136-145)
[2019-07-05] MEDS: LEVOTHYROXINE 100MCG TABLET (0.1MG) PO SCH (06:32)
[2019-07-05] MEDS: ASCORBIC ACID 500 MG TAB PO SCH (08:01)
[2019-07-05] MEDS: PRIMIDONE 250 MG TAB PO SCH ×3 (08:01→20:50)
[2019-07-05] MEDS: CALCIUM/VITAMIN D 500 MG TAB PO SCH ×2 (08:01→20:50)
[2019-07-05] MEDS: NORTRIPTYLINE 10 MG CAP PO SCH ×2 (08:01→20:50)
[2019-07-05] MEDS: guaiFENesin ER 600 MG TAB PO SCH ×2 (08:02→20:50)
[2019-07-05] MEDS: FERROUS SULFATE 325MG TAB PO SCH (08:02)
[2019-07-05 08:21] LABS: EOS # 0.3 10^3/uL (0.0-0.5); EOS % 4.8 % (0.0-3.0); LYMPH # 0.5 10^3/uL (1.5-5.0); LYMPH % 8.7 % (24.0-44.0); MONO # 0.2 10^3/uL (0.0-0.8); MONO % 4.4 % (0.0-5.0); NEUTROPHILS # 4.3 10^3/uL (1.5-8.5); NEUTROPHILS % 81.7 % (36.0-66.0)
[2019-07-05] MEDS: BUDESONIDE 0.5 MG/2 ML INHALATION SUSPENSION INH SCH ×2 (08:45→19:48)
--- NOTE | 2019-07-05 11:37 | IPN ---
DATE OF VISIT: 07/05/2019 PULMONARY PROGRESS NOTE: Again attending Bonnie Ball. Patient examined and chart reviewed. She is awake, alert, appropriate, sitting in the bedside chair. Daughter is with her. Maximum temperature (Tmax) overnight 98.2. Blood pressure 108 to 130s. Heart rate 80-100. Respiratory rate in the teens. Laboratories all reviewed. White blood cell count down to 5.3. Hemoglobin 7.4, platelet count 321,000. Electrolytes are reviewed and are in the electronic medical record (EMR). C-reactive protein is elevated but somewhat less at 15.3. On exam, she is awake, alert, and appropriate. Psychiatric exam is normal. Pupils reactive. Sclerae clear. Trachea is midline. Chest shows diminished breath sounds with egophony at both bases. Occasional rhonchus. No wheeze. Cardiac exam distant and regular. Peripheral pulse palpable. Trace edema. Abdomen obese, soft with active bowel sounds. Extremities with no cyanosis, clubbing. Neurologically, she is awake, alert, and appropriate. No new imaging. Labs as outlined above. IMPRESSION: 1. Suspect persistent pneumonia with malclearance of secretions. 2. Underlying asthma. 3. Recurrent fevers. RECOMMENDATIONS: At this point, I believe some of her source clearly is pulmonary. She is on appropriate antimicrobials. Secretion clearance has improved. I have asked her to try to stay out of bed as much as she possibly can, as I do believe it will markedly help her secretion clearance. I discussed this at length with her daughter. Her fever workup is in progress. For now, we will proceed as outlined above from a pulmonary standpoint. Further recommendations will be made in the progress record as new information becomes available.
--- NOTE | 2019-07-05 12:02 | IPNPDOC ---
Text Note Date of Service The patient was seen on 07/05/19. NOTE SUBJECTIVE: Patient was examined at at bed side. She was accompanied by her daug hter. She reported that she feels better. She was able to maintain adequate blood pressure overnight. . Her MAXIMUM TEMPERATURE overnight was 99.2. Admits to dry cough. No chest pain, no palpitation, no abdominal pain, no diarrhea, OBJECTIVE: PHYSICAL EXAMINATION: GENERAL APPEARANCE: Alert, conversant, no apparent distress ENT: Tripple lumen central line on patient left subclavien view SKIN: No bruising, no works, no sinus infection between patient's toes LUNGS: No wheezing, good symmetric air movement, moderate rhonchi heard at bilateral bases. HEART: S1 and S2 present and regular rate and rhythm ABDOMEN: Nontender EXTREMITIES: 2+ nonpitting edema. PULSES: 2+ upper and lower extremity . LABORATORY DATA: Please see below. ASSESMENT This is a 84-year-old female with a history of multiple UTIs, admitted for sepsis shoct secondary to presumably urinary tract infection. She is status post sepsis fluid resuscitation. Currently with on zosyn for a prior urine culture positive for Klebsiella pneumonia sensitive to Zosyn. Prior to Zosyn. Patient was treated with Macrobid. Patient also has pulmonary/intensive care consult for sepsis. PLAN: #Sepsis shock secondary to presumably urinary tract infection,. Patient was afebrile overnight, last documented fever was July 03. She does not have leukocytosis. This morning. Echocardiogram was negative for any signs of infective endocarditis. This morning patient shows clinical signs of improvement. Urinalysis was weakly positive UTI, urine cultures negative, blood cultures continued to be negative. Patient was examined by pulmonary and critical care team, who suspected that might be an underlying pulmonary infection as a reason for her fevers and intial septic appearance. They agree with Zosyn for broad coverage. We'll continue to monitor. -Status post fluid resuscitation as well as status post norepinephrine bitartrate for hypotension. She is maintaining adequate blood pressures. #Anemia -Patient had a drop in hemoglobin. Hemoglobin. Hemoglobin hemo-crit this morning was 7.4 and 23.5 respectively. One unit of packed RBCs ordered #Acute on chronic hypoxic respiratory failure -Significantly improved. Patient currently on 2 L of nasal cannula and satting appropriately. Superficial basilic vein nonocclusive thrombus diagnosed at last hospital stay -Started on Xarelto 10 mg daily for a total on 45 days. Started on June 21 -On hold during hospital stay. She will be placed on Lovenox. #Diastolic CHF -status post 2,410 ml of IV fluids -Will continue to monitor, will continue to assess patient and start diuretics as needed #Essential Tremors on Botulinium injections continue primidone #CAD status post PCI -c/w statin - Hold metoprolol #Hypothyroidism -synthroid #Hypertension -Hold metoprolol #Hyperlipidemia -continue statin #Obesity with GALO -untreated, does not use CPAP -Will place her on CPAP at night #DVT -Lovenox VS,Fishbone, I+O VS, Fishbone, I+O Laboratory Tests 07/05/19 04:43 Vital Signs Date Time Temp Pulse Resp B/P (MAP) Pulse Ox O2 Delivery O2 Flow Rate FiO2 07/05/19 11:30 98.8 92 20 134/61 97 Nasal Cannula 2.0 07/05/19 00:00 25 I&O- Last 24 Hours up to 6 AM 07/05/19 06:00 Intake Total 1280 ml Output Total 1050 ml Balance 230 ml GME ATTESTATION GME ATTESTATION My faculty preceptor for this patient encounter was physically present during the encounter and was fully available. All aspects of the patient interview, examination, medical decision making process, and medical care plan development were reviewed and approved by the faculty preceptor. The faculty preceptor is aware and concurs with the plan as stated in the body of this note and will attest to such by his/her cosignature. ATTENDING NOTE Ms. Ball is doing tremendously better today. She is off levophed, is now back on 2L and has been afebrile since 07/03 while on zosyn. There had been a plan to do a more extensive infectious workup for persistent fevers with suspicion that they may be another source in addition to the Klebs UTI diagnosed on 06/29 but giv en this significant improvement after presenting this improvement to her daughter and the patient, we have all agreed to de-escalate for an invasive workup including LP and LEROY after a normal TTE without evidence of a veg with resolved shock, fevers, and hypoxemia. She will be transferred instead to the floor from the ICU and I will treat her with 7d of zosyn as they are concerned about rapid de-escalation of antibiotics after their recent experience of re- admissions with persistent recurrent fevers. OBDULIO BOWIE DO Jul 05, 2019 12:02 PATRICIA MCCAIN MD Jul 06, 2019 07:15
[2019-07-05] MEDS ORDERED: SODIUM CHLORIDE NASAL 0.65% SPRAY BTL (OCEAN) PRN (13:00)
[2019-07-05] MEDS: VITAMIN D 1,000 INTERNATIONAL UNITS TABLET PO SCH (20:50)
[2019-07-05] MEDS: ATORVASTATIN 20 MG TAB PO SCH (20:51)
[2019-07-05] MEDS: LATANOPROST 0.005% OPHTH SOLN 2.5 ML OU SCH (23:30)
[2019-07-06] MEDS: ENOXAPARIN 100MG/1ML SYRINGE (J1650) SC SCH ×2 (00:03→11:44)
[2019-07-06] MEDS: PIPERACILLIN/TAZOBACTAM SOD 2.25 GM in D5W MINI-BAG PLUS 50 ML IV SCH ×4 (00:03→17:08)
[2019-07-06] MEDS: methylPREDNISolone INJ 125 MG/2 ML VIAL (J2930) IV SCH ×3 (00:03→17:09)
[2019-07-06] MEDS: LATANOPROST 0.005% OPHTH SOLN 2.5 ML OU SCH ×2 (00:03→21:00)
[2019-07-06] MEDS: IPRATROPIUM 0.5MG/ALBUTEROL 2.5MG INH SOL UD 3ML (DUONEB)(J7620) NEB SCH ×6 (04:00→22:50)
[2019-07-06 06:00] VITALS: BP 137/82
[2019-07-06] MEDS: LEVOTHYROXINE 100MCG TABLET (0.1MG) PO SCH (06:38)
[2019-07-06 07:20] LABS: HEMATOCRIT 28.9 % (36.0-47.0); HEMOGLOBIN 8.9 g/dl (12.0-15.5); MEAN CORPUSCULAR HGB CONC 30.8 g/dl (32.0-36.5); PLATELET COUNT, AUTOMATED 338 10^3/uL (150-450); RED BLOOD COUNT 2.78 10^6/uL (4.00-5.40); WHITE BLOOD COUNT 5.3 10^3/uL (4.0-10.0)
[2019-07-06] MEDS: BUDESONIDE 0.5 MG/2 ML INHALATION SUSPENSION INH SCH ×2 (07:34→20:11)
[2019-07-06 07:45] LABS: BLOOD UREA NITROGEN 18 MG/DL (7-18); CALCIUM LEVEL 8.7 MG/DL (8.8-10.2); CARBON DIOXIDE LEVEL 26 MEQ/L (21-32); CHLORIDE LEVEL 110 MEQ/L (98-107); CREATININE FOR GFR 0.79 MG/DL (0.55-1.30); GLOMERULAR FILTRATION RATE > 60.0 (>32); GLUCOSE, FASTING 104 MG/DL (70-100); POTASSIUM SERUM 4.8 MEQ/L (3.5-5.1); SODIUM LEVEL 141 MEQ/L (136-145)
[2019-07-06] MEDS: guaiFENesin ER 600 MG TAB PO SCH ×2 (08:53→20:50)
[2019-07-06] MEDS: CALCIUM/VITAMIN D 500 MG TAB PO SCH ×2 (08:53→20:50)
[2019-07-06] MEDS: PRIMIDONE 250 MG TAB PO SCH ×3 (08:54→20:49)
[2019-07-06] MEDS: ASCORBIC ACID 500 MG TAB PO SCH (08:54)
[2019-07-06] MEDS: FERROUS SULFATE 325MG TAB PO SCH (08:54)
[2019-07-06] MEDS: NORTRIPTYLINE 10 MG CAP PO SCH ×2 (08:54→20:49)
--- NOTE | 2019-07-06 10:07 | IPN ---
DATE: 07/06/2019 I again attended Bonnie Ball. She is now on the medical-surgical floor. She is feeling better but still has significant difficulties with clearance of secretions. Maximum temperature (T max) overnight 97.7, blood pressure in the 130s, heart rate generally in the 90s, respiratory rate 18-22 without accessory muscle use. Laboratories from today have been reviewed. White blood cell count down to 5.3, hemoglobin 8.9, platelet count 338,000. Sodium 141, potassium (K) of 4.8, chloride 110, CO2 of 26, BUN 18, creatinine is 0.79. On exam, she is awake, alert, and appropriate. Pupils are reactive, sclerae are clear. Trachea is midline. Chest shows persistent egophony at the bases with some rhonchi that did not completely clear with cough. Cardiac exam is distant but regular. Peripheral pulses palpable, no edema. Abdomen: Obese, soft, nontender with active bowel sounds. No convincing organomegaly or masses. Extremities: No cyanosis or clubbing. Neurologically, she is awake, alert, appropriate. Psychiatric shows good affect. Pulse oximetry 96% on two liters nasal cannula. IMPRESSION: 1. Asthma with exacerbation. 2. Mal clearance of secretions. 3. Recurrent fevers, strongly suspect pulmonary source. 4. Cannot rule out a viral presentation. RECOMMENDATIONS: At this point, I truly believe her difficulties from a pulmonary standpoint is what is fueling a lot of this for her. We had ordered a therapy vest, she put it on for several minutes but did not like it, and I had a very pointed discussion with her in that regard. Her son is present and agrees completely with the recommendation that she needs to do whatever she can to try to help keep her secretions cleared. We will continue PEP therapy. I will increase her IV steroids for several days to see if it doesn't help. She is on aggressive nebulized regimen. Ulcer, deep vein thrombosis (DVT) prophylaxis as per the primary service. She remains on broad-spectrum antimicrobials. At this point, will proceed as outlined above. Further recommendations will be made in the progress record as new information becomes available.
--- NOTE | 2019-07-06 12:26 | IPNPDOC ---
Text Note Date of Service The patient was seen on 07/06/19. NOTE SUBJECTIVE: -Afebrile -Doing well on the floor -No complaints this morning -Was visiting with her son when I saw her OBJECTIVE: PHYSICAL EXAMINATION: GENERAL APPEARANCE: Alert, conversant, no apparent distress SKIN: No bruising or rash LUNGS: Blunted air movement with some rhonchi at bilateral bases, L>R, otherwise no wheezing and moving air moderately well HEART: S1 and S2 present and regular rate and rhythm ABDOMEN: Nontender EXTREMITIES: 2+ pitting edema to subknees, otherwise WWP LABORATORY DATA: Please see below.Reviewed. ASSESMENT 84-year-old W with a history of multiple UTIs, and recent admission for UTI and PNA and discharged to the [facility] where she now returned from with fever and lethargy after diagnosis with Klebs UTI and found to be in septic shock re quiring ICU admission and pressors after poor response to fluids c/b worsening hypoxemia, who is now doing much better off presors and afebrile since 07/03 while on zosyn and hypoxemia much improved to 2L. PLAN: #Sepsis shock presumably 2/2 Klebs urinary tract infection. Shock resolved. Sepsis resolved. Only documented source was Klebs UTI from 06/29 culture and improved LLQ opacity per imaging. -Leukocyotosis now resolved -Echocardiogram was negative for any signs of infective endocarditis. -Admission urine cultures negative, blood cultures continued to be negative. Sputum essentially negative. MRSA negative -Status post fluid resuscitation as well as status post levophed for shock. -continue zosyn for 7d course #Anemia -Patient had a drop in hemoglobin. Hemoglobin. Hemoglobin hemo-crit this morning was 7.4 and 23.5 respectively. One unit of packed RBCs ordered #Acute on chronic hypoxic respiratory failure -Significantly improved. Patient currently on 2 L of nasal cannula and satu rating appropriately. -Pulm onboard, with ongoing pulm toilet, solumedrol 80 Q8 IV, home budesonide, as well as duonebs and albuterol and chest PT Superficial basilic vein nonocclusive thrombus diagnosed at last hospital stay -Started on Xarelto 10 mg daily for a total on 45 days. Started on June 21 -On hold during hospital stay, currently on therapeutic dose Lovenox. #Diastolic CHF -status post 2,410 ml of IV fluids -BP now much improved --> will restart torsemide at home dosing this afternoon. Tomorrow AM may restart aldactone and toprol #Essential Tremors on Botulinium injections continue primidone #CAD status post PCI -c/w statin - restart metoprolol starting tomorrow AM #Hypothyroidism -synthroid #Hypertension -Restart metoprolol, starting tomorrow AM #Hyperlipidemia -continue statin #Obesity with GALO -QHS CPAP #DVT -therapeutic dosing Lovenox #Deconditioning: -PT/OT VS,Fishbone, I+O VS, Fishbone, I+O Laboratory Tests 07/06/19 06:15 Vital Signs Date Time Temp Pulse Resp B/P (MAP) Pulse Ox O2 Delivery O2 Flow Rate FiO2 07/06/19 07:40 2.0 07/06/19 06:00 97.7 98 20 137/82 (100) 96 Nasal Cannula 07/05/19 00:00 25 I&O- Last 24 Hours up to 6 AM 07/06/19 06:00 Intake Total 1560 ml Output Total 800 ml Balance 760 ml PATRICIA MCCAIN MD Jul 06, 2019 12:26
[2019-07-06] MEDS: METOPROLOL SUCC *XL* 25MG TAB (TopROL *XL*) PO SCH (13:01)
[2019-07-06] MEDS: TORSEMIDE 20 MG TAB PO SCH (13:01)
[2019-07-06] MEDS: SPIRONOLACTONE 25 MG TAB PO SCH (13:01)
[2019-07-06 14:00] VITALS: BP 130/72
[2019-07-06] MEDS: VITAMIN D 1,000 INTERNATIONAL UNITS TABLET PO SCH (20:49)
[2019-07-06] MEDS: ATORVASTATIN 20 MG TAB PO SCH (20:49)
[2019-07-06] MEDS: SENOKOT S TAB PO PRN (20:49)
[2019-07-06 22:00] VITALS: BP 145/91
[2019-07-07] MEDS: ENOXAPARIN 100MG/1ML SYRINGE (J1650) SC SCH ×2 (00:26→12:21)
[2019-07-07] MEDS: PIPERACILLIN/TAZOBACTAM SOD 2.25 GM in D5W MINI-BAG PLUS 50 ML IV SCH ×4 (00:26→17:24)
[2019-07-07] MEDS: ACETAMINOPHEN 500 MG TAB PO PRN ×2 (00:32→20:22)
[2019-07-07] MEDS: methylPREDNISolone INJ 125 MG/2 ML VIAL (J2930) IV SCH (02:21)
[2019-07-07] MEDS: IPRATROPIUM 0.5MG/ALBUTEROL 2.5MG INH SOL UD 3ML (DUONEB)(J7620) NEB SCH ×6 (04:00→23:46)
[2019-07-07 06:00] VITALS: BP 145/90
[2019-07-07] MEDS: LEVOTHYROXINE 100MCG TABLET (0.1MG) PO SCH (06:01)
[2019-07-07 06:50] LABS: HEMATOCRIT 28.8 % (36.0-47.0); HEMOGLOBIN 9.1 g/dl (12.0-15.5); MEAN CORPUSCULAR HEMOGLOBIN 31.9 pg (27.0-33.0); MEAN CORPUSCULAR HGB CONC 31.6 g/dl (32.0-36.5); MEAN CORPUSCULAR VOLUME 101.1 fl (80.0-96.0); PLATELET COUNT, AUTOMATED 325 10^3/uL (150-450); RED BLOOD COUNT 2.85 10^6/uL (4.00-5.40); WHITE BLOOD COUNT 5.6 10^3/uL (4.0-10.0)
[2019-07-07 07:10] LABS: CALCIUM LEVEL 8.9 MG/DL (8.8-10.2); CREATININE FOR GFR 0.97 MG/DL (0.55-1.30); GLOMERULAR FILTRATION RATE 58.1 (>32); POTASSIUM SERUM 4.1 MEQ/L (3.5-5.1)
[2019-07-07] MEDS: BUDESONIDE 0.5 MG/2 ML INHALATION SUSPENSION INH SCH ×2 (07:48→19:26)
[2019-07-07] MEDS ORDERED: TORSEMIDE 20 MG TAB PO SCH (09:00)
[2019-07-07 09:20] LABS: MAGNESIUM LEVEL 1.9 MG/DL (1.8-2.4)
[2019-07-07] MEDS: CALCIUM/VITAMIN D 500 MG TAB PO SCH ×2 (09:48→20:21)
[2019-07-07] MEDS: MOM 30ML SUSPENSION UDC PO PRN (09:48)
[2019-07-07] MEDS: SENOKOT S TAB PO PRN (09:48)
[2019-07-07] MEDS: METOPROLOL SUCC *XL* 25MG TAB (TopROL *XL*) PO SCH (09:49)
[2019-07-07] MEDS: guaiFENesin ER 600 MG TAB PO SCH ×2 (09:49→20:20)
[2019-07-07] MEDS: PRIMIDONE 250 MG TAB PO SCH ×3 (09:49→20:21)
[2019-07-07] MEDS: FERROUS SULFATE 325MG TAB PO SCH (09:49)
[2019-07-07] MEDS: ASCORBIC ACID 500 MG TAB PO SCH (09:50)
[2019-07-07] MEDS: NORTRIPTYLINE 10 MG CAP PO SCH ×2 (09:50→20:21)
[2019-07-07] MEDS: SPIRONOLACTONE 25 MG TAB PO SCH (09:50)
--- NOTE | 2019-07-07 09:58 | IPN ---
DATE: 07/07/2019 Ms. Ball reports that she is doing about the same as she was yesterday. She denies any shortness of breath. She reports that she has been using the acapella and the vest, but has had no cough. She remains afebrile. She feels that her lower extremity edema is somewhat decreased this morning. No other concerns expressed. OBJECTIVE: PHYSICAL EXAMINATION: General: Ms. Ball is sitting in the recliner in no acute distress. She is easily able to move to the sitting position. She can complete full sentences. No cough on evaluation. Vital signs: Temperature 97.5 with a T-max of 98.4, pulse 85, respiratory rate 18, blood pressure 145/90 with a MAP of 108, SPO2 96% on 2 liters nasal cannula. HEENT: Anicteric, nares: Patent bilaterally, O2 tubing in place. Oropharynx clear. Neck: Supple, trachea is midline. Lungs: Symmetric excursion, fair air entry, bibasilar crackles. No wheeze or rhonchi. No accessory muscle usage or retractions. Cardiovascular: Regular rate and rhythm with a normal S1-S2, no murmur, rub, or gallop appreciated. Abdomen: Positive bowel sounds, soft, nondistended. Extremities: CBC from this morning showed a hemoglobin 9.1, hematocrit 28.8, platelet count 325,000, white blood cell count 5600. Chemistries show a sodium of 138, potassium 4.1, chloride 103, bicarbonate 29, anion gap 6 with a BUN 18, creatinine 1.0, glucose 108, calcium 8.9, magnesium 1.9. Sputum culture from 07/04/2019 grew just a few yeast. IMPRESSION: 1. Asthma exacerbation. 2. Malignancy clearance of secretions, likely secondary to bronchiectasis. 3. GALO, untreated. RECOMMENDATIONS: 1. The patient has now been afebrile for 4 days. She has been on Zosyn since the . 2. Would continue systemic corticosteroids, but will change her to prednisone. 3. Continue Budesonide Perforomist and as-needed bronchodilators. 4. Most important will be continuing airway clearance. I have asked respiratory to teacher "adela" to use the acapella as this will be her source as an outpatient. While she is inpatient she also has access to the [facility]. [facility]
--- NOTE | 2019-07-07 11:06 | IPNPDOC ---
Text Note Date of Service The patient was seen on 07/07/19. NOTE Subjective: Patient is an 84-year-old female who is into the hospital with sepsis was thought to be secondary to Klebsiella urinary tract infection. Patient is doing well. No acute events overnight. Patient says her breathing is better. Review of systems General: Patient denies fevers Cardiovascular: Patient denies chest pain Respiratory: Patient denies shortness of breath, cough Extremities: Patient denies swelling or pain in extremities Objective: Vitals: (see below) General: No acute distress, laying comfortably in bed, with nasal cannula oxygen in place HEENT: Normocephalic, atraumatic, moist mucous membranes. Neck: No JVD Cardiac: RRR, No murmurs Pulm: Clear to auscultation b/l. No wheezing, rhonchi Abd: NT/ND + BS Ext: Patient had edema present however, I was not able to examine the patient as she would not let me as every time I push on her legs she was in pain and asked me to stop. Radial, posterior tibial, and dorsalis pedis pulses equal bilater ally. Labs (see below) Images: No new imaging is been performed Assessment: Patient is an 84-year-old female presented to the hospital with a urinary tract infection causing sepsis. Patient has been hospitalized multiple times in the past month for sepsis secondary to either urinary tract infection or pneumonia. Patient was at [facility] for rehabilitation or returned with fever and lethargy Plan 1. Septic shock presumably secondary to Klebsiella urinary tract infection. Shock is resolved. Sepsis resolved. He only source that were able to ascertain was from urinary culture. Leukocytosis is resolved and echocardiograms date for any signs of infective endocarditis. Blood cultures continue to be negative. Sputum has been negative and she is MRSA negative. She is status post fluid resu scitation. We'll continue Zosyn for a seven-day course. 2. Anemia: Patient dropping hemoglobin and was given a unit of packed red blood cells. Patient's hemoglobin is better today. 3. Due to chronic hypoxic respiratory failure. Significantly improved. Patient's currently on 1.5 L of oxygen via nasal cannula which is about where she is at bedtime. Pulmonary is on board and we appreciate their help in treating the patient. 4. Superficial basilic vein nonocclusive thrombus diagnosed at the last hospital stay. She is started on Xarelto 10 mg daily for total of 45 days. This started on June 21. It is on hold during the current hospital stay as she is currently on therapeutic Lovenox. 5. Diastolic congestive heart failure. Status post 2410 mL of IV fluids. Blood pressure is much improved. Patient's torsemide was started yesterday at home dose and she has a negative fluid balance of -2 L. 5. Essential tremors on botulism injection. Continue primidone. 6. Coronary artery disease status post PCI. Continue with metoprolol and statin. 7. Hypertension. Continue with metoprolol. 8. Hyperlipidemia. Continue with statin. 9. Obesity with obstructive sleep apnea. Continue CPAP. DVT prophy: Lovenox Dispo: Pending continued improvement in patient's pulmonary status as well as physical therapy clearance or placement in acute rehabilitation unit. VS,Fishbone, I+O VS, Fishbone, I+O Laboratory Tests 07/07/19 06:32 Vital Signs Date Time Temp Pulse Resp B/P (MAP) Pulse Ox O2 Delivery O2 Flow Rate FiO2 07/07/19 09:49 86 140/86 07/07/19 06:00 97.5 18 96 Nasal Cannula 2.0 07/05/19 00:00 25 I&O- Last 24 Hours up to 6 AM 07/07/19 06:00 Intake Total 750 ml Output Total 3000 ml Balance -2250 ml GME ATTESTATION GME ATTESTATION My faculty preceptor for this patient encounter was physically present during the encounter and was fully available. All aspects of the patient interview, examination, medical decision making process, and medical care plan development were reviewed and approved by the faculty preceptor. The faculty preceptor is aware and concurs with the plan as stated in the body of this note and will attest to such by his/her cosignature. ATTENDING NOTE Ms. Ball is doing very well. She was admitted with UTI c/b septic shock and suspicion of a possible PNA and pulmonary edema 2/2 fluids with acute hypoxemic respiratory failure requiring HFNC who is now recovering while on zosyn, steroids and back on her home diuretics and chest PT. She will be screened by the [facility] for acute rehab while we begin discharge planning. FREDRICK PHELPS DO Jul 07, 2019 11:06 PATRICIA MCCAIN MD Jul 07, 2019 21:41
[2019-07-07 13:15] LABS: HIV 1&2 SCREEN CENTAUR NEGATIVE (NEGATIVE)
[2019-07-07] MEDS: LATANOPROST 0.005% OPHTH SOLN 2.5 ML OU SCH (20:20)
[2019-07-07] MEDS: ATORVASTATIN 20 MG TAB PO SCH (20:20)
[2019-07-07] MEDS: VITAMIN D 1,000 INTERNATIONAL UNITS TABLET PO SCH (20:20)
[2019-07-07 22:00] VITALS: BP 117/76
[2019-07-08] MEDS: PIPERACILLIN/TAZOBACTAM SOD 2.25 GM in D5W MINI-BAG PLUS 50 ML IV SCH ×3 (00:52→12:10)
[2019-07-08] MEDS: ENOXAPARIN 100MG/1ML SYRINGE (J1650) SC SCH ×2 (00:52→12:11)
[2019-07-08] MEDS: IPRATROPIUM 0.5MG/ALBUTEROL 2.5MG INH SOL UD 3ML (DUONEB)(J7620) NEB SCH ×4 (04:00→15:11)
[2019-07-08 06:00] VITALS: BP 146/90
[2019-07-08] MEDS: LEVOTHYROXINE 100MCG TABLET (0.1MG) PO SCH (06:23)
[2019-07-08 06:31] LABS: HEMATOCRIT 30.3 % (36.0-47.0); HEMOGLOBIN 9.6 g/dl (12.0-15.5); MEAN CORPUSCULAR HEMOGLOBIN 32.3 pg (27.0-33.0); MEAN CORPUSCULAR HGB CONC 31.7 g/dl (32.0-36.5); PLATELET COUNT, AUTOMATED 332 10^3/uL (150-450); RED BLOOD COUNT 2.97 10^6/uL (4.00-5.40); WHITE BLOOD COUNT 7.1 10^3/uL (4.0-10.0)
[2019-07-08 07:01] LABS: CALCIUM LEVEL 8.7 MG/DL (8.8-10.2); CREATININE FOR GFR 0.96 MG/DL (0.55-1.30); GLOMERULAR FILTRATION RATE 58.8 (>32); POTASSIUM SERUM 3.6 MEQ/L (3.5-5.1)
[2019-07-08] MEDS: BUDESONIDE 0.5 MG/2 ML INHALATION SUSPENSION INH SCH (07:17)
[2019-07-08] MEDS ORDERED: POTASSIUM CHLORIDE 10 MEQ SR TABLET PO ONE (08:45)
[2019-07-08] MEDS ORDERED: predniSONE 20 MG TAB PO SCH (09:00)
[2019-07-08] MEDS: CALCIUM/VITAMIN D 500 MG TAB PO SCH ×2 (09:00→09:39)
[2019-07-08] MEDS: NORTRIPTYLINE 10 MG CAP PO SCH (09:39)
[2019-07-08 09:40] VITALS: BP 140/84
[2019-07-08] MEDS: METOPROLOL SUCC *XL* 25MG TAB (TopROL *XL*) PO SCH (09:40)
[2019-07-08] MEDS: FERROUS SULFATE 325MG TAB PO SCH (09:40)
[2019-07-08] MEDS: guaiFENesin ER 600 MG TAB PO SCH (09:41)
[2019-07-08] MEDS: PRIMIDONE 250 MG TAB PO SCH ×2 (09:41→16:02)
[2019-07-08] MEDS: ASCORBIC ACID 500 MG TAB PO SCH (09:41)
[2019-07-08] MEDS: TORSEMIDE 20 MG TAB PO SCH (09:41)
[2019-07-08] MEDS: SPIRONOLACTONE 25 MG TAB PO SCH (09:42)
--- NOTE | 2019-07-08 10:11 | IPN ---
DATE: 07/08/2019 Ms. Ball is doing reasonably well. She does not notice a significant difference from yesterday. She did walk with physical therapy (PT) outside her room and down the hallway. She denied any shortness of breath or dyspnea on exertion. She has been working with the acapella and the vest including using the mills cough. She does not believe that she is doing well with her cough and when speaking with respiratory therapy, they thought she does a very good job with the mills cough and it was effective. She is being diuresed. No other concerns expressed. OBJECTIVE: PHYSICAL EXAMINATION: GENERAL: Ms Ball is sitting in the recliner in no acute distress. She can easily move herself to the sitting position. No cough during the evaluation. VITAL SIGNS: Temperature 98.2, pulse 88-91, respiratory rate 19, blood pressure 140/90 with a MAP of 108, SpO2 95% on air. HEENT: Anicteric. Nares: Patent bilaterally. Oxygen tubing in place. Oropharynx clear. No lesions. Moist mucosa. NECK: Supple, trachea is midline. LUNGS: Symmetric excursion, fair air entry, bibasilar fine crackles. No wheeze or rhonchi. Mildly prolonged expiratory phase. No accessory muscle usage or retractions. CARDIOVASCULAR: Regular rate and rhythm with a normal S1, S2, no murmur, rub or gallop appreciated. ABDOMEN: Positive bowel sounds, soft. EXTREMITIES: Warm and well perfused, without clubbing or cyanosis. 1+ pedal edema and trace pretibial edema bilaterally. NEUROLOGIC: Alert, awake and oriented. No focal deficits. PSYCHIATRIC: Appropriate affect. LABORATORY DATA: CBC this morning showed hemoglobin 9.6, hematocrit 30.3, platelet count 332,000, white blood cell count 7100. Chemistries show sodium of 139, potassium 3.6, chloride 102, bicarbonate 32, anion gap 5, BUN 18, creatinine 1.0, glucose 75, calcium 8.7. Yesterdays input and output were 1370 and 2700 out making her a negative 1330. IMPRESSION: 1. Asthma exacerbation: Resolving. 2. Mal clearance of secretions: Possibly secondary to bronchiectasis. 3. History of obstructive sleep apnea (GALO), untreated. RECOMMENDATION: 1. The patient has now been afebrile for 5 days. She remains on Zosyn. 2. Will continue to decrease her prednisone. She should be weaned off over the next 7-10 days. 3. Continue budesonide and Perforomist nebulization as well as, as needed bronchodilators. 4. Continue to encourage airway clearance. We spent time this morning explaining to her the importance of using the acapella with a mills cough as an outpatient. 5. At this point, there are no further recommendations from the pulmonary service and we will sign off. Please do not hesitate to re-consult the service if she develops pulmonary difficulties. Thank you. EBONI
[2019-07-08 10:37] VITALS: BP 140/84
--- NOTE | 2019-07-08 13:17 | IPNPDOC ---
Text Note Date of Service The patient was seen on 07/08/19. NOTE SUBJECTIVE: -Doing well on the floor, afebrile since 07/03, no complaints this morning OBJECTIVE: PHYSICAL EXAMINATION: GENERAL APPEARANCE: Alert, conversant, no apparent distress SKIN: No bruising or rash LUNGS: Moving air relatively well with persistent blunting at the bases HEART: S1 and S2 present and regular rate and rhythm ABDOMEN: Obese, NTND EXTREMITIES: improving pitting edema, otherwise [facility] LABORATORY DATA: Please see below.Reviewed. ASSESMENT 84-year-old W with a history of multiple UTIs, and recent admission for UTI and PNA and discharged to the [facility] where she now returned from with fever and lethargy after diagnosis with Klebs UTI and found to be in septic shock requiring ICU admission and pressors after poor response to fluids c/b worsening hypoxemia, who is now doing much better with resolved septic shock on zosyn and hypoxemia back to baseline 2L. PLAN: #Sepsis shock presumably 2/2 Klebs urinary tract infection. Shock resolved. Sepsis resolved. Only documented source was Klebs UTI from 06/29 culture and improved LLQ opacity per imaging, though pulm thought she may have also had a recurrent PNA. -Leukocyotosis now resolved -Echocardiogram was negative for any signs of infective endocarditis. -Admission urine cultures negative, blood cultures continued to be negative. Sputum essentially negative. MRSA negative -Status post fluid resuscitation as well as status post levophed for shock. -continue zosyn for total 7d course, ending 07/10 #Anemia -s/p 1 unit pRBCs with sustained stable anemia at this time. #Acute on chronic hypoxic respiratory failure -Significantly improved. Patient currently on 2 L of nasal cannula and saturating appropriately. -Pulm onboard, with ongoing chest PT, now switched to pred 60 daily, as well as duonebs and albuterol Superficial basilic vein nonocclusive thrombus diagnosed at last hospital stay -Started on Xarelto 10 mg daily for a total on 45 days. Started on June 21 -On hold during hospital stay, currently on therapeutic dose Lovenox, to restart at discharge #Diastolic CHF -status post 2,410 ml of IV fluids -BP now normalized -continue home torsemide,aldactone and toprol, with appropriate lytes repletions -strict I/Os and home fluid restriction #Essential Tremors on Botulinium injections continue primidone #CAD status post PCI -continue statin -cont metoprolol #Hypothyroidism -synthroid #Hypertension -cont metoprolol #Hyperlipidemia -continue statin #Obesity with GALO -QHS CPAP #DVT -therapeutic dosing Lovenox #Deconditioning: -PT/OT VS,Fishbone, I+O VS, Fishbone, I+O Laboratory Tests 07/08/19 05:44 Vital Signs Date Time Temp Pulse Resp B/P (MAP) Pulse Ox O2 Delivery O2 Flow Rate FiO2 07/08/19 06:00 98.2 91 19 146/90 (108) 95 Nasal Cannula 2.0 07/05/19 00:00 25 I&O- Last 24 Hours up to 6 AM 07/08/19 06:00 Intake Total 1320 ml Output Total 2200 ml Balance -880 ml PATRICIA MCCAIN MD Jul 08, 2019 08:52
[2019-07-08] MEDS ORDERED: ZOSY2INJ2 IV (13:23)
[2019-07-08] MEDS ORDERED: MUCI600T31 PO (13:42)
[2019-07-08] MEDS ORDERED: PRED20TA PO (13:42)
[2019-07-08 13:48] VITALS: BP 138/82
--- NOTE | 2019-07-08 15:06 | DS.PDOC ---
Discharge Summary General Date of Admission Jul 03, 2019 at 08:16 Date of Discharge 07/08/2019 Attending Physician: PATRICIA MCCAIN MD Discharge Summary PROCEDURES PERFORMED DURING STAY: Central line placement 07/03/2019 ADMITTING DIAGNOSES: 1. Septic shock 2/2 Klebsiella UTI DISCHARGE DIAGNOSES: 1. Septic shock 2/2 Klebsiella UTI 2. Acute on chronic hypoxic respiratory failure 2/2 probable HAP on chronic asthma 3. Chronic diastolic CHF 4. Essential Tremors 5. Cervical dystonia 6. CAD status post PCI 7. Chronic Hypertension 8. Acute on chronic Macrocytic anemia 9. Hypothyroidism 10. Hypertension 11. Hyperlipidemia 12. Obesity 13. Rheumatoid arthritis. 14. Obstructive sleep apnea. 15. Superficial basilic vein nonocclusive thrombus on Xarelto 10 mg daily for 45 days. (Started on 06/29/19) COMPLICATIONS/CHIEF COMPLAINT: Septic shock 2/2 UTI HISTORY OF PRESENT ILLNESS: 84 -year-old W with a recent admission for UTI and PNA who was recently discharged to [facility] for STR before eventual discharge home, who returned to the ED with fever, chills, lethargy and hypotension in the setting of a recent Klebsiella UTI diagnosed on 06/29/2019 at [facility] for which she was on macrobid. In the ED, she was found to be tachycardic, hypotensive and febrile and was started on empiric zosyn and given 3L of fluids that was c/b acute on chronic hypoxemic respiratory failure and she was admitted to the ICU for septic shock presumed to be 2/2 to the recent Klebsiella UTI. While in the ICU, BP continued to drop and she had a TLC placed and was started on levophed while her hypoxemia worsened and she was started placed on vapotherm requiring high FiO2. CT chest showed no PE, interval resolution of her pleural effusion and improvement in the bilateral lower lobe atelectasis/consolidation. Pulmonary was consulted and started her on IV steroids and duonebs and PRN albuterol nebs. Her course was c/b persistent fevers and she had a TTE done as part of her fever workup and was found without overt vegetations and a normal EF. Of note, the Klebsilla on 06/29 UCx was generally pensensitive except to ampicillin. Her shock resolved on 07/02 and last fever was on 07/03 and she remained hemodynamically stable thereafter. Her hypoxemia improved and by 07/04 she was on 2-3L of nasal canula. Pulmonary expressed concern that she may have had an active pneumonia and so I kept her on zosyn for HCAP coverage. She did well and was transferred to the floor where she worked with PT and OT, and was restarted on her diuretics for volume overload after receiving the sepsis bolus. She was ultimately screened for ARU admission and deemed appropriate and will now be discharged to the ARU for intensive therapy where she will continue zosyn to complete a 7 day course on 07/10. I will continue to follow her while she is in the ARU. For her Physical Exam, Labs, Imaging and plan by problem please see the 07/08 progress note. Vital Signs/I&Os Vital Signs Date Time Temp Pulse Resp B/P (MAP) Pulse Ox O2 Delivery O2 Flow Rate FiO2 07/08/19 10:38 2.0 07/08/19 10:37 98.4 88 18 140/84 (102) 94 Nasal Cannula 07/05/19 00:00 25 I&O- Last 24 Hours up to 6 AM 07/08/19 06:00 Intake Total 1320 ml Output Total 2200 ml Balance -880 ml Laboratory Data Labs 24H Laboratory Tests 2 07/08/19 05:44: Nucleated Red Blood Cells % (auto) 0.0, Anion Gap 5L, Glomerular Filtration Rate 58.8, Calcium Level 8.7L CBC/BMP Laboratory Tests 07/08/19 05:44 Microbiology Microbiology 07/04/19 Gram Stain - Final, Complete 07/04/19 Sputum Culture - Final, Complete Yeast Like Organism 07/03/19 Blood Culture - Final, Complete NO GROWTH AFTER 5 DAYS 07/03/19 Blood Culture - Final, Complete NO GROWTH AFTER 5 DAYS 07/03/19 Urine Culture - Final, Complete 07/03/19 Respiratory Virus Panel (PCR) (MARIE) - Final, Complete Discharge Medications Scheduled Albuterol Sulf (Albuterol Sulfate) 2.5 Mg/3 Ml Vial.neb, 2.5 MG INH BID, (Reported) 0700, 2000 Ascorbic Acid (Ascorbic Acid) 500 Mg Tablet, 500 MG PO DAILY, (Reported) Atorvastatin Calcium (Atorvastatin Calcium) 40 Mg Tablet, 40 MG PO QHS, (Reported) Budesonide (Budesonide) 0.5 Mg/2 Ml Ampul.neb, 0.5 MG INH BID, (Reported) 0900, 1700 Calcium Carbonate/Vitamin D3 (Calcium 500 mg Chewable Tablet) 1 Each Tab.chew, 500 MG PO BID, (Reported) Cholecalciferol (Vitamin D3) (Vitamin D3) 2,000 Unit Tablet, 2,000 UNIT PO QHS, (Reported) Ferrous Sulfate (Ferrous Sulfate) 325 Mg Tablet, 325 MG PO DAILY, (Reported) Guaifenesin (Mucinex) 600 Mg Tab.er.12h, 1,200 MG PO BID Latanoprost (Xalatan) 0.005% 2.5ML Drops, 1 DROP OU QHS, (Reported) Levothyroxine Sodium (Synthroid) 100 Mcg Tablet, 100 MCG PO DAILY, (Reported) Magnesium Hydroxide (Milk of Magnesia) 400 Mg/5 Ml Oral.susp, 2,400 MG PO Q2D, (Reported) EVERY OTHER NIGHT Metoprolol Succinate (Metoprolol Succinate) 25 Mg Tab.er.24h, 25 MG PO DAILY, (Reported) Mometasone/Formoterol (Dulera 200 Mcg/5 Mcg Inhaler) 13 Gm Hfa.aer.ad, 2 PUFF INH BID, (Reported) Nitrofurantoin Monohyd/M-Cryst (Macrobid 100 mg Capsule) 100 Mg Capsule, 100 MG PO BID, (Reported) FOR 5 DAYS: FINISHED AT 07/06/19 Nortriptyline HCl (Nortriptyline HCl) 10 Mg Capsule, 10 MG PO BID, (Reported) Piperacillin Sodium/Tazobactam (Zosyn 2.25 Gram Vial) 2.25 Gm Vial, 1 INJ IV Q6 H, (Reported) Prednisone (Prednisone) 20 Mg Tablet, 40 MG PO DAILY Primidone (Primidone) 250 Mg Tab, 250 MG PO TID, (Reported) 0800, 1200, QHS Rivaroxaban (Xarelto) 10 Mg Tablet, 10 MG PO QHS, (Reported) Spironolactone (Aldactone) 25 Mg Tab, 25 MG PO DAILY, (Reported) Sulfasalazine (Sulfasalazine) 500 Mg Tab, 1,000 MG PO DAILY, (Reported) Torsemide (Torsemide) 20 Mg Tablet, 60 MG PO 3XW, (Reported) SUNDAY, SUNDAY AND SUNDAY Torsemide (Torsemide) 20 Mg Tablet, 40 MG PO 4XWK, (Reported) SUN/TUE/THURS/SAT Umeclidinium [place] (Incruse Ellipta) 62.5 Mcg/Inh Inh, 1 PUFF INH DAILY, (Reported) Scheduled PRN Acetaminophen (Acetaminophen) 500 Mg Tablet, 1,000 MG PO Q8H PRN for PAIN / FEVER, (Reported) Bisacodyl (Bisacodyl) 10 Mg Supp.rect, 10 MG PA DAILY PRN for CONSTIPATION, (Reported) Magnesium Hydroxide (Milk of Magnesia) 400 Mg/5 Ml Oral.susp, 2,400 MG PO DAILY PRN for CONSTIPATION, (Reported) Nystatin (Nystatin Powder) 15 Gm Powder, 1 DOSE TOP DAILY PRN for RASH, (Reported) APPLY TO ABDOMINAL FOLDS AFTER BATH NEEDED Sennosides/Docusate Sodium (Senna-S Tablet) 1 Each Tablet, 2 TAB PO BID PRN for CONSTIPATION, (Reported) Sodium Phosphate,[place]-Dibasic (Fleet Enema) 133 Ml Enema, 1 SUSAN [place] DAILY PRN for CONSTIPATION, (Reported) Allergies Coded Allergies: ibuprofen (Verified Allergy, Severe, respiratory distress, 05/08/19) Cephalosporins (Verified Allergy, Intermediate, SEVERE HIVES, 05/08/19) iodine (Verified Allergy, Intermediate, SEVERE HIVES, 05/08/19) tetracycline (Verified Allergy, Intermediate, hives, 06/13/19) cephalexin (Verified Allergy, Mild, RASH (FROM kEFLEX), 05/08/19) ciprofloxacin (Verified Allergy, Unknown, 06/01/19) NSAIDS (Non-Steroidal Anti-Inflamma (Verified Adverse Reaction, Intermediate, unable to take d/t asthma, 06/13/19) morphine (Verified Adverse Reaction, Intermediate, HALLUCINATIONS, 05/08) PATRICIA MCCAIN MD Jul 08, 2019 15:06
[2019-07-09] MEDS ORDERED: predniSONE 20 MG TAB PO SCH (09:00)
== END 2019-07-08 17:03 | disposition other institution (70) | DRG 871 ==
LOC: M ED 04:54 → M ED INP 08:16 → ENRESERV 08:28 → M ICU 09:02 → M MS5PR 07-05 15:20
PROVIDERS: ADMIT Internal Medicine; ATTEND Internal Medicine
PROC: 02HV33Z Insertion of Infusion Device into Superior Vena Cava, Percutaneous Approach (ICD-10-PCS; principal; 2019-07-03)
PROC: 30233N1 Transfusion of Nonautologous Red Blood Cells into Peripheral Vein, Percutaneous Approach (ICD-10-PCS; 2019-07-08)
DX: A41.9 Sepsis, unspecified organism (principal); J96.21 Acute and chronic respiratory failure with hypoxia; R65.21 Severe sepsis with septic shock; N39.0 Urinary tract infection, site not specified; I82.890 Acute embolism and thrombosis of other specified veins; I50.32 Chronic diastolic (congestive) heart failure; J44.1 Chronic obstructive pulmonary disease with (acute) exacerbation; R00.0 Tachycardia, unspecified; I11.0 Hypertensive heart disease with heart failure; G25.0 Essential tremor; I25.10 Atherosclerotic heart disease of native coronary artery without angina pectoris; Z98.61 Coronary angioplasty status; E03.9 Hypothyroidism, unspecified; E78.5 Hyperlipidemia, unspecified; E66.9 Obesity, unspecified; Z68.35 Body mass index [BMI] 35.0-35.9, adult; Z99.81 Dependence on supplemental oxygen; G24.3 Spasmodic torticollis; D53.9 Nutritional anemia, unspecified; H40.9 Unspecified glaucoma; M06.9 Rheumatoid arthritis, unspecified; Z79.899 Other long term (current) drug therapy; Z79.01 Long term (current) use of anticoagulants; Z98.41 Cataract extraction status, right eye; Z98.42 Cataract extraction status, left eye; Z90.79 Acquired absence of other genital organ(s); Z90.49 Acquired absence of other specified parts of digestive tract; Z88.1 Allergy status to other antibiotic agents; Z88.5 Allergy status to narcotic agent; Z88.8 Allergy status to other drugs, medicaments and biological substances; Z91.14 Patient's other noncompliance with medication regimen; B96.1 Klebsiella pneumoniae [K. pneumoniae] as the cause of diseases classified elsewhere

== ENCOUNTER 2019-07-08 15:56 | Inpatient (IN) | payer MEDICARE ==
[~2019-07-08] VITALS: Ht 152.4 cm; Wt 79.0 kg
[2019-07-08] MEDS: PANTOPRAZOLE 40MG TAB (PROTONIX) PO SCH (09:00)
[~2019-07-08 15:56] MED LIST changes: +ASCO500T PO; +CHEW500C2 PO; +FLEEENE12 PR; +MACR100C43 PO; +MUCI600T31 PO; +PRED20TA PO; +SENN-23 PO; +ZOSY2INJ2 IV
[2019-07-08 17:30] VITALS: BP 161/84
[2019-07-08] MEDS ORDERED: MOM 30ML SUSPENSION UDC PO PRN (17:45)
[2019-07-08] MEDS ORDERED: PIPERACILLIN/TAZOBACTAM SOD 2.25 GM in D5W MINI-BAG PLUS 50 ML IV SCH (18:00)
[2019-07-08] MEDS: BUDESONIDE 0.5 MG/2 ML INHALATION SUSPENSION INH SCH (18:26)
[2019-07-08] MEDS: IPRATROPIUM 0.5MG/ALBUTEROL 2.5MG INH SOL UD 3ML (DUONEB)(J7620) NEB SCH (18:26)
[2019-07-08 20:00] VITALS: BP 148/70
[2019-07-08] MEDS: SODIUM CHLORIDE NASAL 0.65% SPRAY BTL (OCEAN) SCH (20:22)
[2019-07-08] MEDS: LATANOPROST 0.005% OPHTH SOLN 2.5 ML OU SCH (20:23)
[2019-07-08] MEDS: PRIMIDONE 250 MG TAB PO SCH (20:23)
[2019-07-08] MEDS: ATORVASTATIN 20 MG TAB PO SCH (20:23)
[2019-07-08] MEDS: NORTRIPTYLINE 10 MG CAP PO SCH (20:23)
[2019-07-08] MEDS: SENNA 8.6 MG TAB (SENOKOT) PO SCH (20:24)
[2019-07-08] MEDS: VITAMIN D 1,000 INTERNATIONAL UNITS TABLET PO SCH (20:24)
[2019-07-08] MEDS: DOCUSATE SODIUM 100 MG CAP PO SCH (20:24)
[2019-07-08] MEDS: guaiFENesin ER 600 MG TAB PO SCH (20:25)
[2019-07-08] MEDS: LACTOBACILLUS ACIDOPHILUS CAP (BACID) PO SCH (20:25)
[2019-07-08] MEDS: CALCIUM/VITAMIN D 500 MG TAB PO SCH (20:26)
[2019-07-08] MEDS: NYSTATIN 100,000 UNITS/GM TOPICAL PWD 15 GM TOP SCH (20:26)
[2019-07-08] MEDS: REMEDY PHYTOPLEX Z-GUARD PASTE 113GM TUBE (FROM STOREROOM PRODUCT) TOP SCH (20:27)
[2019-07-09] MEDS: PIPERACILLIN/TAZOBACTAM SOD 2.25 GM in D5W MINI-BAG PLUS 50 ML IV SCH ×4 (02:14→19:51)
[2019-07-09] MEDS: LEVOTHYROXINE 100MCG TABLET (0.1MG) PO SCH (05:02)
[2019-07-09 06:00] VITALS: BP 106/63
[2019-07-09 06:55] LABS: BASO # 0.1 10^3/uL (0.0-0.2); BASO % 0.6 % (0.0-1.0); EOS # 0.4 10^3/uL (0.0-0.5); EOS % 5.1 % (0.0-3.0); LYMPH # 2.2 10^3/uL (1.5-5.0); LYMPH % 26.2 % (24.0-44.0); MEAN CORPUSCULAR HEMOGLOBIN 31.7 pg (27.0-33.0); MEAN CORPUSCULAR HGB CONC 31.3 g/dl (32.0-36.5); MEAN CORPUSCULAR VOLUME 101.6 fl (80.0-96.0); MONO # 0.7 10^3/uL (0.0-0.8); NEUTROPHILS # 4.6 10^3/uL (1.5-8.5); NEUTROPHILS % 55.8 % (36.0-66.0); PLATELET COUNT, AUTOMATED 330 10^3/uL (150-450); RED BLOOD COUNT 3.15 10^6/uL (4.00-5.40); WHITE BLOOD COUNT 8.2 10^3/uL (4.0-10.0)
[2019-07-09 07:22] LABS: ALBUMIN 2.3 GM/DL (3.2-5.2); BILIRUBIN,TOTAL 0.5 MG/DL (0.2-1.0); CALCIUM LEVEL 8.7 MG/DL (8.8-10.2); CREATININE FOR GFR 1.14 MG/DL (0.55-1.30); GLOMERULAR FILTRATION RATE 48.2 (>32); POTASSIUM SERUM 4.1 MEQ/L (3.5-5.1); TOTAL PROTEIN 7.2 GM/DL (6.4-8.2)
[2019-07-09] MEDS: IPRATROPIUM 0.5MG/ALBUTEROL 2.5MG INH SOL UD 3ML (DUONEB)(J7620) NEB SCH ×4 (08:15→22:19)
[2019-07-09] MEDS: BUDESONIDE 0.5 MG/2 ML INHALATION SUSPENSION INH SCH ×2 (08:15→22:19)
[2019-07-09] MEDS: NYSTATIN 100,000 UNITS/GM TOPICAL PWD 15 GM TOP SCH ×2 (08:49→21:00)
[2019-07-09] MEDS: SPIRONOLACTONE 25 MG TAB PO SCH (08:49)
[2019-07-09] MEDS: NORTRIPTYLINE 10 MG CAP PO SCH ×2 (08:49→21:17)
[2019-07-09] MEDS: PANTOPRAZOLE 40MG TAB (PROTONIX) PO SCH (08:50)
[2019-07-09] MEDS: TORSEMIDE 20 MG TAB PO SCH (08:50)
[2019-07-09] MEDS: METOPROLOL SUCC *XL* 25MG TAB (TopROL *XL*) PO SCH (08:51)
[2019-07-09] MEDS: LACTOBACILLUS ACIDOPHILUS CAP (BACID) PO SCH ×3 (08:51→21:20)
[2019-07-09] MEDS: DOCUSATE SODIUM 100 MG CAP PO SCH ×2 (08:51→21:17)
[2019-07-09] MEDS: ASCORBIC ACID 500 MG TAB PO SCH (08:51)
[2019-07-09] MEDS: CALCIUM/VITAMIN D 500 MG TAB PO SCH ×2 (08:51→21:18)
[2019-07-09] MEDS: predniSONE 20 MG TAB PO SCH (08:51)
[2019-07-09] MEDS: FERROUS SULFATE 325MG TAB PO SCH (08:52)
[2019-07-09] MEDS: PRIMIDONE 250 MG TAB PO SCH ×3 (08:53→21:20)
[2019-07-09] MEDS: SODIUM CHLORIDE NASAL 0.65% SPRAY BTL (OCEAN) SCH ×3 (08:53→21:21)
[2019-07-09] MEDS: guaiFENesin ER 600 MG TAB PO SCH (08:53)
[2019-07-09] MEDS: REMEDY PHYTOPLEX Z-GUARD PASTE 113GM TUBE (FROM STOREROOM PRODUCT) TOP SCH ×3 (08:54→21:00)
--- NOTE | 2019-07-09 11:49 | REP ---
Clinical: Follow up pneumonia. Technique: PA and lateral. Comparison: 07/03/2019. Findings: Mediastinum and cardiac silhouette along with chronic interstitial changes are stable. Bibasilar atelectasis and left lower lobe consolidation are again identified but slightly improved. Small associated pleural reaction again noted. No pneumothorax. Skeletal structures intact. Impression: Mild improvement. Continued bibasilar atelectasis, left lower lobe consolidation and small left pleural reaction. Electronically Signed by Davi Smith MD 07/09/2019 11:41 A
--- NOTE | 2019-07-09 13:31 | HPEPDOC ---
[facility] Note DATE OF ADMISSION: 07-08-19 DATE OF SERVICE: 07-09-19 TIME OF ADMISSION: Please refer to physician's admission order. SOURCE OF ADMISSION INFORMATION: [facility] record, [facility] records, patient CHIEF COMPLAINT: pneumonia and UTI with deconditioning HISTORY OF PRESENT ILLNESS: 84F pmh Asthma on home 02, obesity, diastolic CHF, recurrent UTIs, cervical dystonia, essential tremor, Hypothyroidism, HTN, HLD, RA, GALO not on CPAP, admitted to [facility] in May for a bilateral PNA thought to be due to aspiration and treated with antibiotics, diagnosed with a left UE basilic superficial vein thrombosis on 06-21-19 and placed on Xarelto after which she was discharged to [facility]. While there she was diagnosed with a Klebsiella UTI and started on Macrobid, but returned to [facility] ED on 07-03-19 complaining of fevers and chills. She was found to be septic with source though to be from her urine. She was transferred to ICU requiring vasopressors and NIV and started on breathing treatments, acapella, and Vest-therapy for her copious secretions and difficulty expectorating. She was found to be fluid overloaded and diuresed with eventual improvement in her fevers and leukocytosis. She was evaluated by therapy, noted to have impairments in mobility and ADLs, and deemed appropriate for discharge to ARU on 07-08-19. REVIEW OF SYSTEMS: The following is a completed review of systems and has been reviewed. Review of systems otherwise unremarkable. PAIN: Patient self reports no pain EYES: No recent vision changes EARS, NOSE, & THROAT: No throat pain or rhinorrhea, +difficulty swallowing pills CARDIOVASCULAR: Denies chest pain or palpitations PULMONARY: Denies shortness of breath, +cough GASTROINTESTINAL: +constipation GENITOURINARY: denies dysuria MUSCULOSKELETAL:generalized weakness NEUROLOGICAL: +essential tremor HEMATOLOGICAL: denies easy bruising SKIN: denies rash PSYCHIATRIC: Unremarkable All other review of systems found to be negative. PAST MEDICAL HISTORY: as per HPI PAST SURGICAL HISTORY: Colostomy with reversal ALLERGIES: Please see below. MEDICATIONS: Please see below. 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 GENERAL: Pleasant and cooperative. No acute distress. HEENT: PERRL. Extraocular movements intact. Clear conjunctiva CARDIOVASCULAR: Regular rate and rhythm. No murmurs, rubs, or gallops LUNGS: Clear to auscultation bilaterally. No wheezes. No rhonchi ABDOMEN: Soft, nontender, nondistended. Positive bowel sounds. Normal active bowel sounds. No suprapubic tenderness NEUROLOGICAL: Alert and oriented times three. Cranial nerves II through XII grossly intact. Sensation diminished to light touch in bilat toes and calves in stocking distribution -no notable tremor EXTREMITIES: 5\5 strength bilateral upper extremities. 5\5 strength right lower extremity except 0/5 EHL. 5/5 strength in left lower extremity except 0/5 EHL. SKIN:no sacral erythema LABORATORY DATA: Please see below. IMAGING:Imaging documentation personally reviewed by record FUNCTIONAL STATUS: Premorbid: Modified Independent with all activities of daily life as well as mobility On Admission: Contact guard to stand-by assist for functional transfers, bed m obility, ambulation, dressing GOALS: Mod-I with RW community distances, stairs, functional transfers, bathing, toileting, dressing, medical optimization ASSESSMENT:84-year-old F with past medical history of Asthma, recurrent UTIs who presents status post sepsis in setting of presumed UTI vs recurrent PNA PLAN: 1. REhab- PT/OT advance gait training, functional transfers, stairs, optimize ADL management, strengthen/stretch/maintain ROM all 4 limbs -HUMAN RESOURCES SUPPORT SPECIALIST ordered for swallow eval 2. Neuro: hx of essential tremor c/u primidone, avoid deliriogencis 3. cardiac: hx of diastolic CHF- c/u Torsemide and spironolactone, fluid restriction, daily weights- medicine consulted to assist in management -hx of HTN c/u Toprol -HLD- c/u statin 4. Resp: recent dx of bilat PNA in May with either persistent or recurrent PNA in the left lower lobe on most recent imaging- c/u IV Zosyn, stop date 07/10/19 per medicine recs, c/u Duonebs, Budesonide, patient declining Guaifenesin, will trial Tessalon pearls instead, c/u Acapella, supplemental 02, vest therapy, and OOB to recliner encouraged-patient with persistent cough, but does not appear short of breath at rest lungs CTA, f/u with pulmonology as outpatient -repeat CXR ordered today to monitor consolidation -c/u steroid taper 5. Endo: hypothyroidism with low TSH levels, may be due to recent sepsis, should be rechecked by PMD and dose adjusted -peripheral polyneuropathy noted on exam possibly due to hypothyroidism, will check Hgb A1c while inhouse 6. Rheum: hx of RA per medical records, patient noted to also have Dupuytren's contractures bilat 7. Psych: c/u Pamelor 10mg BID 8. Pain: tylenol prn 9. DVT: c/u Xarelto 10mg daily for left UE superficial thrombosis, TEDs 10. Dispo: TBD POST ADMISSION PHYSICIAN EVALUATION: Medical and functional status: Description of medical status, medical assessment: As above. Rehabilitation diagnosis and current and prior cold morbid medical conditions as above. Risk of complications and plans to mitigate them as above. Description of functional status current status is as above. Prior status as above. Status compared to preadmission: There are no clinically significant differences between the patient's current status and the information described on the preadmission screening document. Treatment plan anticipated: Treatment plan is as described above. Required disciplines including physical therapy, occupational therapy, others as noted above. Intensity of services: 3 hours a day, 6 days a week. Special considerations: There are no specific special or safety considerations that would likely preclude immediate implementation of an intensive rehabilitation program or subsequently influence the plan of care. ATTESTATION: Considering all the information above, it is my best judgment that this patient requires intensive rehabilitation therapy as described above and an inpatient hospital environment due to the complexity of nursing, medical, and rehabilitation needs required by the patient. Furthermore, this patient can reasonably be expected to participate in an benefit from an inpatient rehabilitation stay with an interdisciplinary team approach to the delivery of rehabilitation care under the direction and supervision of rehabilitation physician. PROGNOSIS: Good ESTIMATED LENGTH OF STAY:10-14 days. PROJECTED DISCHARGE DESTINATION: Home with family support and any durable medical equipment required to increase functional safety and mobility TIME SPENT COUNSELING AND COORDINATING INITIAL CARE: Greater than 70 minutes. Vital Signs Vital Sign - Last 24 Hours 07/08/19 07/08/19 07/08/19 07/09/19 17:30 20:00 21:00 06:00 Temp 97.8 97.7 98.4 Pulse 94 90 76 Resp 18 18 18 B/P (MAP) 161/84 (109) 148/70 (96) 106/63 (77) Pulse Ox 94 100 96 O2 Delivery Nasal Cannula Nasal Cannula Nasal Cannula O2 Flow Rate 2.0 2.0 2.0 2.0 07/09/19 07/09/19 08:51 09:00 Pulse 76 B/P (MAP) 106/63 O2 Flow Rate 2.0 Laboratory Data CBC/BMP Laboratory Tests 07/09/19 06:37 Labs 24H Laboratory Tests 2 07/09/19 06:37: Immature Granulocyte % (Auto) 3.3H, Neutrophils (%) (Auto) 55.8, Lymphocytes (%) (Auto) 26.2, Monocytes (%) (Auto) 9.0H, Eosinophils (%) (Auto) 5.1H, Basophils (%) (Auto) 0.6, Neutrophils # (Auto) 4.6, Lymphocytes # (Auto) 2.2, Monocytes # (Auto) 0.7, Eosinophils # (Auto) 0.4, Basophils # (Auto) 0.1, Nucleated Red Blood Cells % (auto) 0.0, Anion Gap 5L, Glomerular Filtration Rate 48.2, Calcium Level 8.7L, Total Bilirubin 0.5, Aspartate Amino Transf (AST/SGOT) 23, Alanine Aminotransferase (ALT/SGPT) 12, Alkaline Phosphatase 55, Total Protein 7.2, Albumin 2.3L, Albumin/Globulin Ratio 0.47L Home Medications Scheduled Albuterol Sulf (Albuterol Sulfate) 2.5 Mg/3 Ml Vial.neb, 2.5 MG INH BID, (Reported) 0700, 2000 Ascorbic Acid (Ascorbic Acid) 500 Mg Tablet, 500 MG PO DAILY, (Reported) Atorvastatin Calcium (Atorvastatin Calcium) 40 Mg Tablet, 40 MG PO QHS, (Reported) Budesonide (Budesonide) 0.5 Mg/2 Ml Ampul.neb, 0.5 MG INH BID, (Reported) 0900, 1700 Calcium Carbonate/Vitamin D3 (Calcium 500 mg Chewable Tablet) 1 Each Tab.chew, 500 MG PO BID, (Reported) Cholecalciferol (Vitamin D3) (Vitamin D3) 2,000 Unit Tablet, 2,000 UNIT PO QHS, (Reported) Ferrous Sulfate (Ferrous Sulfate) 325 Mg Tablet, 325 MG PO DAILY, (Reported) Guaifenesin (Mucinex) 600 Mg Tab.er.12h, 1,200 MG PO BID Latanoprost (Xalatan) 0.005% 2.5ML Drops, 1 DROP OU QHS, (Reported) Levothyroxine Sodium (Synthroid) 100 Mcg Tablet, 100 MCG PO DAILY, (Reported) Magnesium Hydroxide (Milk of Magnesia) 400 Mg/5 Ml Oral.susp, 2,400 MG PO Q2D, (Reported) EVERY OTHER NIGHT Metoprolol Succinate (Metoprolol Succinate) 25 Mg Tab.er.24h, 25 MG PO DAILY, (Reported) Mometasone/Formoterol (Dulera 200 Mcg/5 Mcg Inhaler) 13 Gm Hfa.aer.ad, 2 PUFF INH BID, (Reported) Nortriptyline HCl (Nortriptyline HCl) 10 Mg Capsule, 10 MG PO BID, (Reported) Piperacillin Sodium/Tazobactam (Zosyn 2.25 Gram Vial) 2.25 Gm Vial, 1 INJ IV Q6H, (Reported) Prednisone (Prednisone) 20 Mg Tablet, 40 MG PO DAILY Primidone (Primidone) 250 Mg Tab, 250 MG PO TID, (Reported) 0800, 1200, QHS Rivaroxaban (Xarelto) 10 Mg Tablet, 10 MG PO QHS, (Reported) Spironolactone (Aldactone) 25 Mg Tab, 25 MG PO DAILY, (Reported) Sulfasalazine (Sulfasalazine) 500 Mg Tab, 1,000 MG PO DAILY, (Reported) Torsemide (Torsemide) 20 Mg Tablet, 60 MG PO 3XW, (Reported) SUNDAY, SUNDAY AND SUNDAY Torsemide (Torsemide) 20 Mg Tablet, 40 MG PO 4XWK, (Reported) SUN/E//SAT Umeclidinium [place] (Incruse Ellipta) 62.5 Mcg/Inh Inh, 1 PUFF INH DAILY, (Reported) Scheduled PRN Acetaminophen (Acetaminophen) 500 Mg Tablet, 1,000 MG PO Q8H PRN for PAIN / FEVER, (Reported) Bisacodyl (Bisacodyl) 10 Mg Supp.rect, 10 MG [place] DAILY PRN for CONSTIPATION, (Rep orted) Magnesium Hydroxide (Milk of Magnesia) 400 Mg/5 Ml Oral.susp, 2,400 MG PO DAILY PRN for CONSTIPATION, (Reported) Nystatin (Nystatin Powder) 15 Gm Powder, 1 DOSE TOP DAILY PRN for RASH, (Reported) APPLY TO ABDOMINAL FOLDS AFTER BATH NEEDED Sennosides/Docusate Sodium (Senna-S Tablet) 1 Each Tablet, 2 TAB PO BID PRN for CONSTIPATION, (Reported) Sodium Phosphate,[place]-Dibasic (Fleet Enema) 133 Ml Enema, 1 SUSAN [place] DAILY PRN for CONSTIPATION, (Reported) Allergies Coded Allergies: ibuprofen (Verified Allergy, Severe, respiratory distress, 05/08/19) Cephalosporins (Verified Allergy, Intermediate, SEVERE HIVES, 05/08/19) iodine (Verified Allergy, Intermediate, SEVERE HIVES, 05/08/19) tetracycline (Verified Allergy, Intermediate, hives, 06/13/19) cephalexin (Verified Allergy, Mild, RASH (FROM kEFLEX), 05/08/19) ciprofloxacin (Verified Allergy, Unknown, 06/01/19) NSAIDS (Non-Steroidal Anti-Inflamma (Verified Adverse Reaction, Intermediate, unable to take d/t asthma, 06/13/19) morphine (Verified Adverse Reaction, Intermediate, HALLUCINATIONS, 05/08/19) A-FIB/CHADSVASC A-FIB History Current/History of A-Fib/PAF?: No LACY ZHANG MD Jul 09, 2019 13:31
[2019-07-09 14:00] VITALS: BP 122/60
[2019-07-09] MEDS: BENZONATATE 100 MG CAP PO SCH ×3 (16:39→21:19)
[2019-07-09] MEDS: RIVAROXABAN 10 MG TAB (XARELTO) PO SCH (17:26)
--- NOTE | 2019-07-09 18:12 | IPNPDOC ---
Text Note Date of Service The patient was seen on 07/09/19. NOTE SUBJECTIVE: -Doing well, no complaints this evening OBJECTIVE: PHYSICAL EXAMINATION: GENERAL APPEARANCE: Alert, conversant, no apparent distress SKIN: No bruising or rash LUNGS: Moving air relatively well with persistent blunting at the bases HEART: S1 and S2 present and regular rate and rhythm ABDOMEN: Obese, NTND EXTREMITIES: improving pitting edema, otherwise WWP LABORATORY DATA: Please see below.Reviewed. ASSESSMENT 84-year-old W with a history of multiple UTIs, and recent admission for UTI and PNA and discharged to the [facility] where she returned from with fever and lethargy after diagnosis with Klebs UTI and found to be in septic shock requiring ICU admission and pressors after poor response to fluids c/b worsening hypoxemia, now doing much better on zosyn and recently discharged to the ARU for intensive therapy. PLAN: #Klebs urinary tract infection c/b septic shock. -continue zosyn for total 7d course, ending 07/10 -doing well, normotensive and afebrile #Anemia: chronic, had 1u on recent admission -to monitor and will transfuse at hgb < 8 #Acute on chronic hypoxic respiratory failure: back on 2L nasal canula -Continues to saturate appropriately. -Continues on pred taper per pulm Superficial basilic vein nonocclusive thrombus diagnosed at last hospital stay -continue Xarelto 10 mg daily for a total on 45 days. Started on June 21 #Diastolic CHF: compensated -continue home torsemide,aldactone and toprol, with appropriate lytes repletions -strict I/Os, daily weights and home fluid restriction #Essential Tremors on Botulinium injections continue primidone #CAD status post PCI -continue statin -cont metoprolol #Hypothyroidism -synthroid #Hypertension -cont metoprolol #Hyperlipidemia -continue statin #Obesity with GALO -QHS CPAP #DVT -On xarelto #Deconditioning: -Ongoing intensive therapy VS,Fishbone, I+O VS, Fishbone, I+O Laboratory Tests 07/09/19 06:37 Vital Signs Date Time Temp Pulse Resp B/P (MAP) Pulse Ox O2 Delivery O2 Flow Rate FiO2 07/09/19 14:00 98.8 102 18 122/60 (80) 96 Nasal Cannula 2.0 I&O- Last 24 Hours up to 6 AM 2/12/20 06:00 Intake Total 0 ml Output Total 0 ml Balance 0 ml PATRICIA MCCAIN MD Jul 09, 2019 18:12
[2019-07-09] MEDS: SENNA 8.6 MG TAB (SENOKOT) PO SCH (21:16)
[2019-07-09] MEDS: VITAMIN D 1,000 INTERNATIONAL UNITS TABLET PO SCH (21:17)
[2019-07-09] MEDS: ATORVASTATIN 20 MG TAB PO SCH (21:19)
[2019-07-09 21:24] VITALS: BP 134/66
[2019-07-09] MEDS: LATANOPROST 0.005% OPHTH SOLN 2.5 ML OU SCH (21:33)
[2019-07-09 22:19] VITALS: O2SAT 83
[2019-07-10] MEDS: PIPERACILLIN/TAZOBACTAM SOD 2.25 GM in D5W MINI-BAG PLUS 50 ML IV SCH ×4 (02:39→20:11)
[2019-07-10] MEDS: ACETAMINOPHEN 500 MG TAB PO PRN (02:43)
[2019-07-10] MEDS: LEVOTHYROXINE 100MCG TABLET (0.1MG) PO SCH (06:24)
[2019-07-10] MEDS: BUDESONIDE 0.5 MG/2 ML INHALATION SUSPENSION INH SCH ×2 (07:11→20:33)
[2019-07-10] MEDS: IPRATROPIUM 0.5MG/ALBUTEROL 2.5MG INH SOL UD 3ML (DUONEB)(J7620) NEB SCH ×4 (07:11→20:33)
[2019-07-10] MEDS: NYSTATIN 100,000 UNITS/GM TOPICAL PWD 15 GM TOP SCH ×2 (09:00→21:00)
[2019-07-10] MEDS: REMEDY PHYTOPLEX Z-GUARD PASTE 113GM TUBE (FROM STOREROOM PRODUCT) TOP SCH ×3 (09:00→21:00)
[2019-07-10] MEDS: BENZONATATE 100 MG CAP PO SCH ×3 (09:00→21:00)
[2019-07-10] MEDS: CALCIUM/VITAMIN D 500 MG TAB PO SCH ×2 (09:07→22:46)
[2019-07-10] MEDS: NORTRIPTYLINE 10 MG CAP PO SCH ×2 (09:08→22:46)
[2019-07-10] MEDS: ASCORBIC ACID 500 MG TAB PO SCH (09:08)
[2019-07-10] MEDS: DOCUSATE SODIUM 100 MG CAP PO SCH ×2 (09:08→22:46)
[2019-07-10] MEDS: PRIMIDONE 250 MG TAB PO SCH ×3 (09:08→22:47)
[2019-07-10] MEDS: FERROUS SULFATE 325MG TAB PO SCH (09:08)
[2019-07-10] MEDS: PANTOPRAZOLE 40MG TAB (PROTONIX) PO SCH (09:08)
[2019-07-10] MEDS: TORSEMIDE 20 MG TAB PO SCH (09:08)
[2019-07-10] MEDS: LACTOBACILLUS ACIDOPHILUS CAP (BACID) PO SCH ×3 (09:08→22:46)
[2019-07-10] MEDS: SPIRONOLACTONE 25 MG TAB PO SCH (09:09)
[2019-07-10] MEDS: METOPROLOL SUCC *XL* 25MG TAB (TopROL *XL*) PO SCH (09:09)
[2019-07-10] MEDS: predniSONE 20 MG TAB PO SCH (09:10)
[2019-07-10] MEDS: SODIUM CHLORIDE NASAL 0.65% SPRAY BTL (OCEAN) SCH ×3 (09:11→22:48)
[2019-07-10] MEDS ORDERED: VARIBAR PUDDING 40% w/v 230ML TUBE As Ordered ONE (09:18)
[2019-07-10] MEDS ORDERED: VARIBAR NECTAR 40% w/v 240ML SUSP BTL As Ordered ONE (09:18)
[2019-07-10] MEDS ORDERED: E-Z-PAQUE 96% w/w SUSP 176GM BTL As Ordered ONE (09:19)
[2019-07-10] MEDS ORDERED: BARIUM SULFATE 700 MG TABLET (E-Z-DISK) As Ordered ONE (09:19)
[2019-07-10 14:00] VITALS: BP 121/70
--- NOTE | 2019-07-10 17:21 | REP ---
COOKIE SWALLOW The procedure was performed under the direct supervision of Dr. Gilman. The procedure was performed with Milvia Norton from speech pathology present. 5 ml aliquots of thin, pudding, mixed fruit, soft and solid consistency barium as well as a barium pill were administered. There is no evidence of penetration or aspiration. The detailed report of this examination will be provided by speech pathology. 1.8 minutes of fluoroscopy time was utilized for this procedure. Electronically Signed by ZORA Humphrey 07/10/2019 02:30 P Electronically Signed by Uriel Gilman MD 07/10/2019 05:13 P
[2019-07-10] MEDS: RIVAROXABAN 10 MG TAB (XARELTO) PO SCH (17:42)
--- NOTE | 2019-07-10 18:27 | IPNPDOC ---
PM&R Progress Note DATE OF SERVICE: Jul 10, 2019 [employer] Progress Note Subjective: Patient reporting her cough is improving and she is moving better in therapy. REVIEW OF SYSTEMS: The following is a completed review of systems and has been reviewed. Review of systems otherwise unremarkable. PAIN: Patient self reports no pain EYES: No recent vision changes EARS, NOSE, & THROAT: No throat pain or rhinorrhea, +difficulty swallowing pills CARDIOVASCULAR: Denies chest pain or palpitations PULMONARY: Denies shortness of breath, +cough GASTROINTESTINAL: +constipation GENITOURINARY: denies dysuria MUSCULOSKELETAL:generalized weakness NEUROLOGICAL: +essential tremor HEMATOLOGICAL: denies easy bruising SKIN: denies rash PSYCHIATRIC: Unremarkable All other review of systems found to be negative. PHYSICAL EXAMINATION: VITAL SIGNS: Please see below. GENERAL: Pleasant and cooperative. No acute distress. HEENT: PERRL. Extraocular movements intact. Clear conjunctiva CARDIOVASCULAR: Regular rate and rhythm. No murmurs, rubs, or gallops LUNGS: Clear to auscultation bilaterally. No wheezes. No rhonchi ABDOMEN: Soft, nontender, nondistended. Positive bowel sounds. Normal active bowel sounds. No suprapubic tenderness NEUROLOGICAL: Alert and oriented times three. Cranial nerves II through XII grossly intact. Sensation diminished to light touch in bilat toes and calves in stocking distribution -no notable tremor EXTREMITIES: 5\5 strength bilateral upper extremities. 5\5 strength right lower extremity except 0/5 EHL. 5/5 strength in left lower extremity except 0/5 EHL. SKIN:no sacral erythema ASSESSMENT:84-year-old F with past medical history of Asthma, recurrent UTIs who presents status post sepsis in setting of presumed UTI vs recurrent PNA PLAN: 1. 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 Neuro: hx of essential tremor c/u primidone, avoid deliriogencis 3. cardiac: hx of diastolic CHF- c/u Torsemide and spironolactone, fluid restriction, daily weights- medicine consulted to assist in management -hx of HTN c/u Toprol -HLD- c/u statin 4. Resp: recent dx of bilat PNA in May with either persistent or recurrent PNA in the left lower lobe on most recent imaging- c/u IV Zosyn, stop date 07/10/19 per medicine recs, c/u Duonebs, Budesonide, patient declining Guaifenesin, will trial Tessalon pearls instead, c/u Acapella, supplemental 02, vest therapy, and OOB to recliner encouraged-patient with persistent cough, but does not appear short of breath at rest lungs CTA, f/u with pulmonology as outpatient -repeat CXR ordered today to monitor consolidation -c/u steroid taper 5. Endo: hypothyroidism with low TSH levels, may be due to recent sepsis, should be rechecked by PMD and dose adjusted -peripheral polyneuropathy noted on exam possibly due to hypothyroidism, will check Hgb A1c while inhouse 6. Rheum: hx of RA per medical records, patient noted to also have Dupuytren's contractures bilat 7. Psych: c/u Pamelor 10mg BID 8. Pain: tylenol prn 9. DVT: c/u Xarelto 10mg daily for left UE superficial thrombosis, TEDs 10. Dispo: TBD Allergies Coded Allergies: ibuprofen (Verified Allergy, Severe, respiratory distress, 05/08/19) Cephalosporins (Verified Allergy, Intermediate, SEVERE HIVES, 05/08/19) iodine (Verified Allergy, Intermediate, SEVERE HIVES, 05/08/19) tetracycline (Verified Allergy, Intermediate, hives, 06/13/19) cephalexin (Verified Allergy, Mild, RASH (FROM kEFLEX), 05/08/19) ciprofloxacin (Verified Allergy, Unknown, 06/01/19) NSAIDS (Non-Steroidal Anti-Inflamma (Verified Adverse Reaction, Intermediate, unable to take d/t asthma, 06/13/19) morphine (Verified Adverse Reaction, Intermediate, HALLUCINATIONS, 05/08/19) Vital Signs Vital Signs Date Time Temp Pulse Resp B/P (MAP) Pulse Ox O2 Delivery O2 Flow Rate FiO2 07/10/19 14:00 98.1 82 18 121/70 (87) 98 Nasal Cannula 2.0 07/09/19 22:19 21 Current Medications Current Medications Current Medications Medications (Trade) Dose Ordered Sig/Geni Route PRN Reason Start Time Stop Time Status Last Admin Dose Admin Acetaminophen (Tylenol Tab) 1,000 mg Q8H PRN PO fever/MILD PAIN (PS 1-4) 07/08/19 17:45 07/10/19 02:43 Albuterol/ Ipratropium (Duoneb (Ipr 0.5mg/Alb 2.5mg)) 3 ml RQID NEB 07/08/19 20:00 07/10/19 16:32 Ascorbic Acid (Vitamin C) 500 mg DAILY PO 07/09/19 09:00 07/10/19 09:08 Atorvastatin Calcium (Lipitor) 40 mg QHS PO 07/08/19 21:00 07/09/19 21:19 Benzonatate (Tessalon Perles) 100 mg TID PO 07/09/19 16:00 07/09/19 16:39 Budesonide (Pulmicort) 0.5 mg RBID INH 07/08/19 20:00 07/10/19 07:11 Calcium/Vitamin D (Oscal D) 500 mg BID PO 07/08/19 21:00 07/10/19 09:07 Docusate Sodium (Colace) 100 mg BID PO 07/08/19 21:00 07/10/19 09:08 Ferrous Sulfate (Ferrous Sulfate) 325 mg DAILY PO 07/09/19 09:00 07/10/19 09:08 Guaifenesin (Mucinex Tab Er) 1,200 mg BID PO 07/08/19 21:00 07/09/19 10:14 DC Lactobacillus Acidophilus (Bacid) 1 ea TID PO 07/08/19 21:00 07/10/19 15:27 Latanoprost (Xalatan 0.005% Op Soln) 1 drop QHS OU 07/08/19 21:00 07/09/19 21:33 Levothyroxine Sodium (Synthroid) 100 mcg DAILY@06 PO 07/09/19 06:00 07/10/19 06:24 Magnesium Hydroxide (Milk Of Magnesia) 30 ml Q2D PRN PO CONSTIPATION 07/08/19 17:45 Metoprolol Succinate (TopROL XL) 25 mg DAILY PO 07/09/19 09:00 07/10/19 09:09 Nortriptyline HCl (Pamelor) 10 mg BID PO 07/08/19 21:00 07/10/19 09:08 Nystatin (Mycostatin Powder, Nystop) abdominal folds BID TOP 07/08/19 21:00 Pantoprazole Sodium (Protonix) 40 mg DAILY PO 07/08/19 09:00 07/10/19 09:08 Piperacillin Sod/ Tazobactam Sod 2.25 gm/Dextrose 50 ml @ 100 mls/hr Q6H IV 07/08/19 18:00 07/08/19 20:38 DC 07/08/19 20:21 Piperacillin Sod/ Tazobactam Sod 2.25 gm/Dextrose 50 ml @ 100 mls/hr Q6H IV 07/09/19 02:00 07/10/19 15:27 Prednisone (Deltasone) 20 mg DAILY PO 07/19/19 09:00 Prednisone (Deltasone) 30 mg DAILY PO 07/14/19 09:00 07/18/19 10:00 Prednisone (Deltasone) 40 mg DAILY PO 07/09/19 09:00 07/13/19 10:00 07/10/19 09:10 Primidone (Mysoline) 250 mg TID PO 07/08/19 21:00 07/10/19 15:27 Rivaroxaban (Xarelto) 10 mg DAILY@1800 PO 07/09/19 18:00 07/10/19 17:42 Senna (Senokot) 1 tab QHS PO 07/08/19 21:00 07/09/19 21:16 Sodium Chloride ([place] Nasal [place]) 2 spray TID NA 07/08/19 21:00 07/10/19 15:27 Spironolactone (Aldactone) 25 mg QAM PO 07/09/19 09:00 07/10/19 09:09 Torsemide (Demadex) 40 mg SuTuThSa@0900 PO 07/10/19 09:00 07/10/19 09:08 Torsemide (Demadex) 60 mg MoWeFr@0900 PO 07/09/19 09:00 07/09/19 08:50 Vitamin D (Vitamin D) 2,000 units QHS PO 07/08/19 21:00 07/09/19 21:17 LACY ZHANG MD Jul 10, 2019 18:27
[2019-07-10 20:33] VITALS: O2SAT 96
[2019-07-10] MEDS: ATORVASTATIN 20 MG TAB PO SCH (22:46)
[2019-07-10] MEDS: SENNA 8.6 MG TAB (SENOKOT) PO SCH (22:47)
[2019-07-10] MEDS: VITAMIN D 1,000 INTERNATIONAL UNITS TABLET PO SCH (22:47)
[2019-07-10] MEDS: LATANOPROST 0.005% OPHTH SOLN 2.5 ML OU SCH (22:48)
[2019-07-10 23:27] VITALS: BP 166/76
[2019-07-11] MEDS: PIPERACILLIN/TAZOBACTAM SOD 2.25 GM in D5W MINI-BAG PLUS 50 ML IV SCH ×2 (01:57→08:28)
[2019-07-11] MEDS: LEVOTHYROXINE 100MCG TABLET (0.1MG) PO SCH (05:28)
[2019-07-11 05:58] VITALS: BP 137/67
[2019-07-11] MEDS: BUDESONIDE 0.5 MG/2 ML INHALATION SUSPENSION INH SCH ×2 (07:18→20:41)
[2019-07-11] MEDS: IPRATROPIUM 0.5MG/ALBUTEROL 2.5MG INH SOL UD 3ML (DUONEB)(J7620) NEB SCH ×4 (07:18→20:41)
[2019-07-11] MEDS: PRIMIDONE 250 MG TAB PO SCH ×3 (08:24→21:37)
[2019-07-11] MEDS: predniSONE 20 MG TAB PO SCH (08:25)
[2019-07-11] MEDS: ASCORBIC ACID 500 MG TAB PO SCH (08:25)
[2019-07-11] MEDS: CALCIUM/VITAMIN D 500 MG TAB PO SCH ×2 (08:25→21:39)
[2019-07-11] MEDS: DOCUSATE SODIUM 100 MG CAP PO SCH ×2 (08:25→21:39)
[2019-07-11] MEDS: LACTOBACILLUS ACIDOPHILUS CAP (BACID) PO SCH ×3 (08:26→21:38)
[2019-07-11] MEDS: BENZONATATE 100 MG CAP PO SCH ×4 (08:26→21:00)
[2019-07-11] MEDS: PANTOPRAZOLE 40MG TAB (PROTONIX) PO SCH (08:26)
[2019-07-11] MEDS: METOPROLOL SUCC *XL* 25MG TAB (TopROL *XL*) PO SCH (08:26)
[2019-07-11] MEDS: NORTRIPTYLINE 10 MG CAP PO SCH ×2 (08:27→21:39)
[2019-07-11] MEDS: TORSEMIDE 20 MG TAB PO SCH (08:27)
[2019-07-11] MEDS: FERROUS SULFATE 325MG TAB PO SCH (08:27)
[2019-07-11] MEDS: SPIRONOLACTONE 25 MG TAB PO SCH (08:27)
[2019-07-11] MEDS: ACETAMINOPHEN 500 MG TAB PO PRN (08:28)
[2019-07-11] MEDS: SODIUM CHLORIDE NASAL 0.65% SPRAY BTL (OCEAN) SCH ×3 (08:29→21:40)
[2019-07-11] MEDS: REMEDY PHYTOPLEX Z-GUARD PASTE 113GM TUBE (FROM STOREROOM PRODUCT) TOP SCH ×3 (08:29→21:42)
[2019-07-11] MEDS: NYSTATIN 100,000 UNITS/GM TOPICAL PWD 15 GM TOP SCH ×2 (08:29→21:00)
[2019-07-11 08:30] LABS: BASO % 0.5 % (0.0-1.0); EOS # 0.2 10^3/uL (0.0-0.5); EOS % 2.8 % (0.0-3.0); HEMATOCRIT 29.1 % (36.0-47.0); HEMOGLOBIN 9.1 g/dl (12.0-15.5); LYMPH # 1.5 10^3/uL (1.5-5.0); LYMPH % 19.6 % (24.0-44.0); MEAN CORPUSCULAR HEMOGLOBIN 32.5 pg (27.0-33.0); MEAN CORPUSCULAR HGB CONC 31.3 g/dl (32.0-36.5); MEAN CORPUSCULAR VOLUME 103.9 fl (80.0-96.0); MONO # 0.5 10^3/uL (0.0-0.8); MONO % 6.7 % (0.0-5.0); NEUTROPHILS # 5.1 10^3/uL (1.5-8.5); NEUTROPHILS % 68.3 % (36.0-66.0); PLATELET COUNT, AUTOMATED 269 10^3/uL (150-450); WHITE BLOOD COUNT 7.5 10^3/uL (4.0-10.0)
[2019-07-11 08:59] LABS: CALCIUM LEVEL 8.5 MG/DL (8.8-10.2); CREATININE FOR GFR 1.01 MG/DL (0.55-1.30); GLOMERULAR FILTRATION RATE 55.5 (>32); POTASSIUM SERUM 4.8 MEQ/L (3.5-5.1)
[2019-07-11] MEDS: MAGIC MOUTHWASH SUSPENSION BTL SSP SCH ×2 (12:00→17:36)
[2019-07-11 14:00] VITALS: BP 137/79
[2019-07-11] MEDS ORDERED: ACETAMINOPHEN TAB 650MG DOSE (2X325MG) PO PRN (17:30)
[2019-07-11] MEDS: RIVAROXABAN 10 MG TAB (XARELTO) PO SCH (17:36)
[2019-07-11] MEDS: sulfaSALAzine 500 MG TABEC PO SCH (21:38)
[2019-07-11] MEDS: SENNA 8.6 MG TAB (SENOKOT) PO SCH (21:39)
[2019-07-11] MEDS: VITAMIN D 1,000 INTERNATIONAL UNITS TABLET PO SCH (21:39)
[2019-07-11] MEDS: ATORVASTATIN 20 MG TAB PO SCH (21:39)
[2019-07-11] MEDS: LATANOPROST 0.005% OPHTH SOLN 2.5 ML OU SCH (21:41)
[2019-07-11 21:50] VITALS: BP 117/59
[2019-07-12] MEDS: LEVOTHYROXINE 100MCG TABLET (0.1MG) PO SCH (05:03)
[2019-07-12] MEDS: ACETAMINOPHEN 500 MG TAB PO SCH (05:04)
[2019-07-12 06:00] VITALS: BP 125/64
[2019-07-12] MEDS: BUDESONIDE 0.5 MG/2 ML INHALATION SUSPENSION INH SCH ×2 (08:36→20:10)
[2019-07-12] MEDS: IPRATROPIUM 0.5MG/ALBUTEROL 2.5MG INH SOL UD 3ML (DUONEB)(J7620) NEB SCH ×4 (08:36→20:10)
[2019-07-12] MEDS: REMEDY PHYTOPLEX Z-GUARD PASTE 113GM TUBE (FROM STOREROOM PRODUCT) TOP SCH ×3 (09:00→20:57)
[2019-07-12] MEDS: NYSTATIN 100,000 UNITS/GM TOPICAL PWD 15 GM TOP SCH ×2 (09:00→20:57)
[2019-07-12] MEDS: BENZONATATE 100 MG CAP PO SCH ×3 (09:00→20:56)
[2019-07-12] MEDS: MAGIC MOUTHWASH SUSPENSION BTL SSP SCH ×3 (09:09→17:43)
[2019-07-12] MEDS: PANTOPRAZOLE 40MG TAB (PROTONIX) PO SCH (09:11)
[2019-07-12] MEDS: predniSONE 10 MG TAB PO SCH (09:12)
[2019-07-12] MEDS: METOPROLOL SUCC *XL* 25MG TAB (TopROL *XL*) PO SCH (09:15)
[2019-07-12] MEDS: NORTRIPTYLINE 10 MG CAP PO SCH ×2 (09:15→20:57)
[2019-07-12] MEDS: FERROUS SULFATE 325MG TAB PO SCH (09:16)
[2019-07-12] MEDS: SODIUM CHLORIDE NASAL 0.65% SPRAY BTL (OCEAN) SCH ×3 (09:16→21:00)
[2019-07-12] MEDS: LACTOBACILLUS ACIDOPHILUS CAP (BACID) PO SCH ×3 (09:16→20:57)
[2019-07-12] MEDS: CALCIUM/VITAMIN D 500 MG TAB PO SCH ×2 (09:16→20:57)
[2019-07-12] MEDS: ASCORBIC ACID 500 MG TAB PO SCH (09:16)
[2019-07-12] MEDS: DOCUSATE SODIUM 100 MG CAP PO SCH ×2 (09:16→20:57)
[2019-07-12] MEDS: SPIRONOLACTONE 25 MG TAB PO SCH (09:39)
[2019-07-12] MEDS: PRIMIDONE 250 MG TAB PO SCH ×3 (09:40→20:57)
[2019-07-12] MEDS: TORSEMIDE 20 MG TAB PO SCH (09:40)
[2019-07-12] MEDS: sulfaSALAzine 500 MG TABEC PO SCH ×2 (09:40→20:57)
[2019-07-12] MEDS: RIVAROXABAN 10 MG TAB (XARELTO) PO SCH (17:42)
[2019-07-12 20:03] VITALS: BP 115/55
[2019-07-12] MEDS: ATORVASTATIN 20 MG TAB PO SCH (20:57)
[2019-07-12] MEDS: SENNA 8.6 MG TAB (SENOKOT) PO SCH (20:57)
[2019-07-12] MEDS: VITAMIN D 1,000 INTERNATIONAL UNITS TABLET PO SCH (20:57)
[2019-07-12] MEDS: LATANOPROST 0.005% OPHTH SOLN 2.5 ML OU SCH (21:00)
[2019-07-13] MEDS: ACETAMINOPHEN 500 MG TAB PO SCH ×2 (05:00→05:26)
[2019-07-13] MEDS: LEVOTHYROXINE 100MCG TABLET (0.1MG) PO SCH (05:26)
[2019-07-13 06:00] VITALS: BP 143/72
[2019-07-13] MEDS: BUDESONIDE 0.5 MG/2 ML INHALATION SUSPENSION INH SCH ×2 (07:35→18:28)
[2019-07-13] MEDS: IPRATROPIUM 0.5MG/ALBUTEROL 2.5MG INH SOL UD 3ML (DUONEB)(J7620) NEB SCH ×4 (07:35→18:28)
[2019-07-13] MEDS: MAGIC MOUTHWASH SUSPENSION BTL SSP SCH ×3 (08:42→16:55)
[2019-07-13] MEDS: FERROUS SULFATE 325MG TAB PO SCH (08:42)
[2019-07-13] MEDS: ASCORBIC ACID 500 MG TAB PO SCH (08:43)
[2019-07-13] MEDS: PRIMIDONE 250 MG TAB PO SCH ×3 (08:43→21:09)
[2019-07-13] MEDS: predniSONE 10 MG TAB PO SCH (08:43)
[2019-07-13] MEDS: LACTOBACILLUS ACIDOPHILUS CAP (BACID) PO SCH ×3 (08:43→21:10)
[2019-07-13] MEDS: PANTOPRAZOLE 40MG TAB (PROTONIX) PO SCH (08:43)
[2019-07-13] MEDS: sulfaSALAzine 500 MG TABEC PO SCH ×2 (08:43→21:10)
[2019-07-13] MEDS: DOCUSATE SODIUM 100 MG CAP PO SCH ×2 (08:44→21:09)
[2019-07-13] MEDS: TORSEMIDE 20 MG TAB PO SCH (08:44)
[2019-07-13 08:50] VITALS: BP 122/70
[2019-07-13] MEDS: NORTRIPTYLINE 10 MG CAP PO SCH ×2 (08:50→21:10)
[2019-07-13] MEDS: CALCIUM/VITAMIN D 500 MG TAB PO SCH ×2 (08:50→21:10)
[2019-07-13] MEDS: METOPROLOL SUCC *XL* 25MG TAB (TopROL *XL*) PO SCH (08:50)
[2019-07-13] MEDS: SPIRONOLACTONE 25 MG TAB PO SCH (08:50)
[2019-07-13] MEDS: BENZONATATE 100 MG CAP PO SCH ×3 (08:50→21:00)
[2019-07-13] MEDS: NYSTATIN 100,000 UNITS/GM TOPICAL PWD 15 GM TOP SCH ×2 (08:51→21:00)
[2019-07-13] MEDS: SODIUM CHLORIDE NASAL 0.65% SPRAY BTL (OCEAN) SCH ×3 (08:51→21:12)
[2019-07-13] MEDS: REMEDY PHYTOPLEX Z-GUARD PASTE 113GM TUBE (FROM STOREROOM PRODUCT) TOP SCH ×3 (08:51→21:00)
[2019-07-13 14:00] VITALS: BP 135/75
[2019-07-13] MEDS: RIVAROXABAN 10 MG TAB (XARELTO) PO SCH (16:57)
[2019-07-13 20:00] VITALS: BP 132/61
[2019-07-13] MEDS: SENNA 8.6 MG TAB (SENOKOT) PO SCH (21:09)
[2019-07-13] MEDS: ATORVASTATIN 20 MG TAB PO SCH (21:09)
[2019-07-13] MEDS: VITAMIN D 1,000 INTERNATIONAL UNITS TABLET PO SCH (21:10)
[2019-07-13] MEDS: LATANOPROST 0.005% OPHTH SOLN 2.5 ML OU SCH (21:11)
[2019-07-14] VITALS (7 sets, daily range): BP systolic 116–147; BP diastolic 55–85; O2SAT 95–100
[2019-07-14] MEDS: ACETAMINOPHEN 500 MG TAB PO SCH (03:27)
[2019-07-14] MEDS ORDERED: NS 1,000 ML IV SCH (03:45)
[2019-07-14] MEDS: PIPERACILLIN/TAZOBACTAM SOD 3.375 GM in D5W MINI-BAG PLUS 50 ML IV SCH ×2 (04:43→10:07)
[2019-07-14] MEDS: LEVOTHYROXINE 100MCG TABLET (0.1MG) PO SCH (04:43)
[2019-07-14 05:11] LABS: BASO % 0.3 % (0.0-1.0); EOS # 0.2 10^3/uL (0.0-0.5); EOS % 1.4 % (0.0-3.0); HEMATOCRIT 30.2 % (36.0-47.0); HEMOGLOBIN 9.8 g/dl (12.0-15.5); LYMPH % 8.1 % (24.0-44.0); MEAN CORPUSCULAR HEMOGLOBIN 33.2 pg (27.0-33.0); MEAN CORPUSCULAR HGB CONC 32.5 g/dl (32.0-36.5); MEAN CORPUSCULAR VOLUME 102.4 fl (80.0-96.0); MONO # 0.7 10^3/uL (0.0-0.8); MONO % 6.1 % (0.0-5.0); NEUTROPHILS # 9.9 10^3/uL (1.5-8.5); NEUTROPHILS % 83.2 % (36.0-66.0); PLATELET COUNT, AUTOMATED 258 10^3/uL (150-450); RED BLOOD COUNT 2.95 10^6/uL (4.00-5.40); WHITE BLOOD COUNT 11.8 10^3/uL (4.0-10.0)
[2019-07-14 05:34] LABS: CALCIUM LEVEL 8.9 MG/DL (8.8-10.2); CREATININE FOR GFR 1.12 MG/DL (0.55-1.30); GLOMERULAR FILTRATION RATE 49.2 (>32); POTASSIUM SERUM 3.8 MEQ/L (3.5-5.1)
[2019-07-14] MEDS: MAGIC MOUTHWASH SUSPENSION BTL SSP SCH (07:47)
[2019-07-14] MEDS: IPRATROPIUM 0.5MG/ALBUTEROL 2.5MG INH SOL UD 3ML (DUONEB)(J7620) NEB SCH ×2 (07:56→11:06)
[2019-07-14] MEDS: BUDESONIDE 0.5 MG/2 ML INHALATION SUSPENSION INH SCH (07:56)
[2019-07-14 08:47] LABS: BASO % 0.3 % (0.0-1.0); EOS # 0.2 10^3/uL (0.0-0.5); EOS % 1.8 % (0.0-3.0); HEMATOCRIT 28.2 % (36.0-47.0); LYMPH # 0.8 10^3/uL (1.5-5.0); LYMPH % 8.9 % (24.0-44.0); MEAN CORPUSCULAR HEMOGLOBIN 33.3 pg (27.0-33.0); MEAN CORPUSCULAR HGB CONC 31.9 g/dl (32.0-36.5); MEAN CORPUSCULAR VOLUME 104.4 fl (80.0-96.0); MONO # 0.5 10^3/uL (0.0-0.8); MONO % 5.5 % (0.0-5.0); NEUTROPHILS # 7.8 10^3/uL (1.5-8.5); NEUTROPHILS % 82.8 % (36.0-66.0); PLATELET COUNT, AUTOMATED 207 10^3/uL (150-450); WHITE BLOOD COUNT 9.4 10^3/uL (4.0-10.0)
--- NOTE | 2019-07-14 08:53 | REP ---
Clinical: Febrile . Comparison: 07/09/2019 . Findings: The mediastinum and cardiac silhouette are stable and within normal limits for portable technique. Increasing opacity in the left lower lobe consistent with elements of atelectasis/consolidation and pleural effusion. Impression: Slightly increased opacities at the left base consistent with atelectasis/consolidation and effusion. Electronically Signed by Davi Smith MD 07/14/2019 08:44 A
[2019-07-14] MEDS: FERROUS SULFATE 325MG TAB PO SCH (09:00)
[2019-07-14] MEDS ORDERED: predniSONE 10 MG TAB PO SCH (09:00)
[2019-07-14] MEDS: CALCIUM/VITAMIN D 500 MG TAB PO SCH ×2 (09:00→10:04)
[2019-07-14] MEDS: TORSEMIDE 20 MG TAB PO SCH (09:00)
[2019-07-14] MEDS: sulfaSALAzine 500 MG TABEC PO SCH (09:00)
[2019-07-14] MEDS: REMEDY PHYTOPLEX Z-GUARD PASTE 113GM TUBE (FROM STOREROOM PRODUCT) TOP SCH (09:00)
[2019-07-14] MEDS: SPIRONOLACTONE 25 MG TAB PO SCH (09:00)
[2019-07-14] MEDS: BENZONATATE 100 MG CAP PO SCH ×2 (09:00→10:03)
[2019-07-14] MEDS: METOPROLOL SUCC *XL* 25MG TAB (TopROL *XL*) PO SCH (09:00)
[2019-07-14 09:12] LABS: CALCIUM LEVEL 7.7 MG/DL (8.8-10.2); CREATININE FOR GFR 0.98 MG/DL (0.55-1.30); GLOMERULAR FILTRATION RATE 57.4 (>32); POTASSIUM SERUM 3.3 MEQ/L (3.5-5.1)
[2019-07-14] MEDS: predniSONE 10 MG TAB PO SCH (10:03)
[2019-07-14 10:04] LABS: APPEARANCE, URINE HAZY (CLEAR); BACTERIA, URINE AUTO 2+ (NEGATIVE); BILIRUBIN, URINE AUTO NEGATIVE (NEGATIVE); BLOOD, URINE BLOOD NEGATIVE (NEGATIVE); COLOR, URINE YELLOW (YELLOW); GLUCOSE, URINE (UA) AUTO NEGATIVE (NEGATIVE); KETONE, URINE AUTO NEGATIVE (NEGATIVE); LEUKOCYTE ESTERASE, URINE AUTO 2+ (NEGATIVE); NITRITE, URINE AUTO POSITIVE (NEGATIVE); PROTEIN, URINE AUTO NEGATIVE (NEGATIVE); RBC, URINE AUTO 14 /HPF (0-3); SPECIFIC GRAVITY URINE AUTO 1.013 (1.002-1.035); SQUAMOUS EPITHELIAL CELL UR AU 1 /HPF (0-6); UROBILINOGEN, URINE AUTO 0.2 mg/dL (0.0-2.0); WBC, URINE AUTO 63 /HPF (0-3)
[2019-07-14] MEDS: PANTOPRAZOLE 40MG TAB (PROTONIX) PO SCH (10:04)
[2019-07-14] MEDS: ASCORBIC ACID 500 MG TAB PO SCH (10:05)
[2019-07-14] MEDS: NORTRIPTYLINE 10 MG CAP PO SCH (10:06)
[2019-07-14] MEDS: DOCUSATE SODIUM 100 MG CAP PO SCH (10:06)
[2019-07-14] MEDS: PRIMIDONE 250 MG TAB PO SCH (10:06)
[2019-07-14] MEDS: LACTOBACILLUS ACIDOPHILUS CAP (BACID) PO SCH (10:06)
[2019-07-14] MEDS: NYSTATIN 100,000 UNITS/GM TOPICAL PWD 15 GM TOP SCH (10:07)
[2019-07-14] MEDS: SODIUM CHLORIDE NASAL 0.65% SPRAY BTL (OCEAN) SCH (10:08)
[2019-07-14] MEDS ORDERED: VITA1CHW7 PO (12:41)
[2019-07-14] MEDS ORDERED: ZOSY3INJ2 IV (12:49)
--- NOTE | 2019-07-14 12:58 | IPNPDOC ---
PM&R Progress Note DATE OF SERVICE: Jul 11, 2019 [employer] Progress Note Subjective: Patient stating her hands are starting to hurt from her RA and that she wishes to be restarted on her sulfasalazine. REVIEW OF SYSTEMS: The following is a completed review of systems and has been reviewed. Review of systems otherwise unremarkable. PAIN: Patient self reports no pain EYES: No recent vision changes EARS, NOSE, & THROAT: No throat pain or rhinorrhea, +difficulty swallowing pills CARDIOVASCULAR: Denies chest pain or palpitations PULMONARY: Denies shortness of breath, +cough GASTROINTESTINAL: +constipation GENITOURINARY: denies dysuria MUSCULOSKELETAL:generalized weakness NEUROLOGICAL: +essential tremor HEMATOLOGICAL: denies easy bruising SKIN: denies rash PSYCHIATRIC: Unremarkable All other review of systems found to be negative. PHYSICAL EXAMINATION: VITAL SIGNS: Please see below. GENERAL: Pleasant and cooperative. No acute distress. HEENT: PERRL. Extraocular movements intact. Clear conjunctiva CARDIOVASCULAR: Regular rate and rhythm. No murmurs, rubs, or gallops LUNGS: Clear to auscultation bilaterally. No wheezes. No rhonchi ABDOMEN: Soft, nontender, nondistended. Positive bowel sounds. Normal active bowel sounds. No suprapubic tenderness NEUROLOGICAL: Alert and oriented times three. Cranial nerves II through XII gr ossly intact. Sensation diminished to light touch in bilat toes and calves in stocking distribution -no notable tremor EXTREMITIES: 5\5 strength bilateral upper extremities. 5\5 strength right lower extremity except 0/5 EHL. 5/5 strength in left lower extremity except 0/5 EHL. SKIN:no sacral erythema ASSESSMENT:84-year-old F with past medical history of Asthma, recurrent UTIs who presents status post sepsis in setting of presumed UTI vs recurrent PNA PLAN: 1. REhab- PT/OT advance gait training, functional transfers, stairs, optimize ADL management, strengthen/stretch/maintain ROM all 4 limbs -CRAFT COORDINATOR ordered for swallow eval 2. Neuro: hx of essential tremor c/u primidone, avoid deliriogencis 3. cardiac: hx of diastolic CHF- c/u Torsemide and spironolactone, fluid restriction, daily weights- medicine consulted to assist in management -hx of HTN c/u Toprol -HLD- c/u statin 4. Resp: recent dx of bilat PNA in May with either persistent or recurrent PNA in the left lower lobe on most recent imaging- c/u IV Zosyn, stop date 07/10/19 per medicine recs, c/u Duonebs, Budesonide, patient declining Guaifenesin, will trial Tessalon pearls instead, c/u Acapella, supplemental 02, vest therapy, and OOB to recliner encouraged-patient with persistent cough, but does not appear short of breath at rest lungs CTA, f/u with pulmonology as outpatient -repeat CXR ordered today to monitor consolidation -c/u steroid taper 5. Endo: hypothyroidism with low TSH levels, may be due to recent sepsis, should be rechecked by PMD and dose adjusted -peripheral polyneuropathy noted on exam possibly due to hypothyroidism, will check Hgb A1c while inhouse 6. Rheum: hx of RA per medical records, patient noted to also have Dupuytren's contractures bilat -patient requesting to be restarted on her Sulfasalazine, confirmed with Dr. Pearson's office she has taken this in the past, patient afebrile without leukocytosis 7. Psych: c/u Pamelor 10mg BID 8. Pain: tylenol prn 9. DVT: c/u Xarelto 10mg daily for left UE superficial thrombosis, TEDs 10. Dispo: TBD Allergies Coded Allergies: ibuprofen (Verified Allergy, Severe, respiratory distress, 05/08/19) Cephalosporins (Verified Allergy, Intermediate, SEVERE HIVES, 05/08/19) iodine (Verified Allergy, Intermediate, SEVERE HIVES, 05/08/19) tetracycline (Verified Allergy, Intermediate, hives, 06/13/19) cephalexin (Verified Allergy, Mild, RASH (FROM kEFLEX), 05/08/19) ciprofloxacin (Verified Allergy, Unknown, 06/01/19) NSAIDS (Non-Steroidal Anti-Inflamma (Verified Adverse Reaction, Intermediate, unable to take d/t asthma, 06/13/19) morphine (Verified Adverse Reaction, Intermediate, HALLUCINATIONS, 05/08/19) Vital Signs Vital Signs Date Time Temp Pulse Resp B/P (MAP) Pulse Ox O2 Delivery O2 Flow Rate FiO2 07/14/19 09:39 100.0 98 16 119/61 (80) 98 Nasal Cannula 3.0 07/14/19 06:00 32 Laboratory Data CBC/BMP Laboratory Tests 07/14/19 04:51 07/14/19 08:36 Labs 24H Laboratory Tests 2 07/14/19 04:51: Immature Granulocyte % (Auto) 0.9, Neutrophils (%) (Auto) 83.2H, Lymphocytes (%) (Auto) 8.1L, Monocytes (%) (Auto) 6.1H, Eosinophils (%) (Auto) 1.4, Basophils (%) (Auto) 0.3, Neutrophils # (Auto) 9.9H, Lymphocytes # (Auto) 1.0L, Monocytes # (Auto) 0.7, Eosinophils # (Auto) 0.2, Basophils # (Auto) 0.0, Nucleated Red Blood Cells % (auto) 0.0, Anion Gap 7L, Glomerular Filtration Rate 49.2, Calcium Level 8.9 07/14/19 06:25: Urine Color YELLOW, Urine Appearance HAZY, Urine pH 7.0, Urine Specific [place] 1.013, Urine Protein NEGATIVE, Urine Glucose (Auto)(UA) NEGATIVE, Urine Ketones (Auto) NEGATIVE, Urine Blood NEGATIVE, Urine Nitrite POSITIVE, Urine Bilirubin NEGATIVE, Urine Urobilinogen 0.2, Urine Leukocyte Esterase (Auto) 2+H, Urine WBC (Auto) 63H, Urine RBC (Auto) 14H, Urine Hyaline Casts (Auto) 0, Urine Bacteria (Auto) 2+H, Urine Squamous Epithelial Cells 1, Urine Sperm (Auto) 07/14/19 08:36: Immature Granulocyte % (Auto) 0.7, Neutrophils (%) (Auto) 82.8H, Lymphocytes (%) (Auto) 8.9L, Monocytes (%) (Auto) 5.5H, Eosinophils (%) (Auto) 1.8, Basophils (%) (Auto) 0.3, Neutrophils # (Auto) 7.8, Lymphocytes # (Auto) 0.8L, Monocytes # (Auto) 0.5, Eosinophils # (Auto) 0.2, Basophils # (Auto) 0.0, Nucleated Red Blood Cells % (auto) 0.0, Anion Gap 6L, Glomerular Filtration Rate 57.4, Calcium Level 7.7L, Lactic Acid Level 1.3 Microbiology Microbiology 07/14/19 Urine Culture, Received Pending 07/14/19 Blood Culture, Received Pending 07/14/19 Respiratory Virus Panel (PCR) (MARIE) - Final, Complete Current Medications Current Medications Current Medications Medications (Trade) Dose Ordered Sig/Geni Route PRN Reason Start Time Stop Time Status Last Admin Dose Admin Acetaminophen (Tylenol Tab) 650 mg Q6HP PRN PO PAIN / FEVER 07/11/19 17:30 07/14/19 11:33 DC 07/12/19 21:42 Acetaminophen (Tylenol Tab) 1,000 mg DAILY@0500 PO 07/12/19 05:00 07/14/19 11:33 DC 07/14/19 03:27 Acetaminophen (Tylenol Tab) 1,000 mg Q8H PRN PO fever/MILD PAIN (PS 1-4) 07/08/19 17:45 07/11/19 14:04 DC 07/11/19 08:28 Albuterol/ Ipratropium (Duoneb (Ipr 0.5mg/Alb 2.5mg)) 3 ml RQID NEB 07/08/19 20:00 07/14/19 11:33 DC 07/14/19 11:06 Ascorbic Acid (Vitamin C) 500 mg DAILY PO 07/09/19 09:00 07/14/19 11:33 DC 07/14/19 10:05 Atorvastatin Calcium (Lipitor) 40 mg QHS PO 07/08/19 21:00 07/14/19 11:33 DC 07/13/19 21:09 Benzonatate (Tessalon Perles) 100 mg TID PO 07/09/19 16:00 07/14/19 11:33 DC 07/09/19 16:39 Budesonide (Pulmicort) 0.5 mg RBID INH 07/08/19 20:00 07/14/19 11:33 DC 07/14/19 07:56 Calcium/Vitamin D (Oscal D) 500 mg BID PO 07/08/19 21:00 07/14/19 11:33 DC 07/13/19 21:10 Docusate Sodium (Colace) 100 mg BID PO 07/08/19 21:00 07/14/19 11:33 DC 07/14/19 10:06 Ferrous Sulfate (Ferrous Sulfate) 325 mg DAILY PO 07/09/19 09:00 07/14/19 11:33 DC 07/14/19 09:00 Guaifenesin (Mucinex Tab Er) 1,200 mg BID PO 07/08/19 21:00 07/09/19 10:14 DC Lactobacillus Acidophilus (Bacid) 1 ea TID PO 07/08/19 21:00 07/14/19 11:33 DC 07/14/19 10:06 Latanoprost (Xalatan 0.005% Op Soln) 1 drop QHS OU 07/08/19 21:00 07/14/19 11:33 DC 07/13/19 21:11 Levothyroxine Sodium (Synthroid) 100 mcg DAILY@0500 PO 07/12/19 05:00 07/14/19 11:33 DC 07/14/19 04:43 Levothyroxine Sodium (Synthroid) 100 mcg DAILY@06 PO 07/09/19 06:00 07/11/19 14:04 DC 07/11/19 05:28 Lidocaine/ Diphenhydr/Alum/ Mg/Simeth (Magic Mouthwash) 5ml AC SSP 07/11/19 12:00 07/14/19 11:33 DC 07/14/19 07:47 Magnesium Hydroxide (Milk Of Magnesia) 30 ml Q2D PRN PO CONSTIPATION 07/08/19 17:45 07/14/19 11:33 DC 07/11/19 17:36 Metoprolol Succinate (TopROL XL) 25 mg DAILY PO 07/09/19 09:00 07/14/19 11:33 DC 07/13/19 08:50 Nortriptyline HCl (Pamelor) 10 mg BID PO 07/08/19 21:00 07/14/19 11:33 DC 07/14/19 10:06 Nystatin (Mycostatin Powder, Nystop) abdominal folds BID TOP 07/08/19 21:00 07/14/19 11:33 DC 07/14/19 10:07 Pantoprazole Sodium (Protonix) 40 mg DAILY PO 07/08/19 09:00 07/14/19 11:33 DC 07/14/19 10:04 Piperacillin Sod/ Tazobactam Sod 2.25 gm/Dextrose 50 ml @ 100 mls/hr Q6H IV 07/08/19 18:00 07/08/19 20:38 DC 07/08/19 20:21 Piperacillin Sod/ Tazobactam Sod 2.25 gm/Dextrose 50 ml @ 100 mls/hr Q6H IV 07/09/19 02:00 07/11/19 08:57 DC 07/11/19 01:57 Piperacillin Sod/ Tazobactam Sod 3.375 gm/Dextrose 50 ml @ 50 mls/hr Q6H IV 07/14/19 04:00 07/14/19 11:33 DC 07/14/19 10:07 Prednisone (Deltasone) 5 mg DAILY PO 07/21/19 09:00 07/14/19 11:33 DC Prednisone (Deltasone) 10 mg DAILY PO 07/18/19 09:00 07/14/19 11:33 DC Prednisone (Deltasone) 20 mg DAILY PO 07/15/19 09:00 07/14/19 11:33 DC Prednisone (Deltasone) 20 mg DAILY PO 07/19/19 09:00 07/11/19 10:21 DC Prednisone (Deltasone) 30 mg DAILY PO 07/12/19 09:00 07/14/19 11:00 DC 07/14/19 10:03 Prednisone (Deltasone) 30 mg DAILY PO 07/14/19 09:00 07/11/19 10:21 DC Prednisone (Deltasone) 40 mg DAILY PO 07/09/19 09:00 07/11/19 10:21 DC 07/11/19 08:25 Primidone (Mysoline) 250 mg TID PO 07/08/19 21:00 07/14/19 11:33 DC 07/14/19 10:06 Rivaroxaban (Xarelto) 10 mg DAILY@1800 PO 07/09/19 18:00 07/14/19 11:33 DC 07/13/19 16:57 Senna (Senokot) 1 tab QHS PO 07/08/19 21:00 07/14/19 11:33 DC 07/13/19 21:09 Sodium Chloride 1,000 ml @ 100 mls/hr Q10H IV 07/14/19 03:45 07/14/19 11:33 DC 07/14/19 04:37 Sodium Chloride ([place] Nasal [place]) 2 spray TID NA 07/08/19 21:00 07/14/19 11:33 DC 07/14/19 10:08 Spironolactone (Aldactone) 25 mg QAM PO 07/09/19 09:00 07/14/19 11:33 DC 07/13/19 08:50 Sulfasalazine (Azulfidine Entabs) 1,000 mg BID PO 07/11/19 21:00 07/14/19 11:33 DC 07/13/19 21:10 Torsemide (Demadex) 40 mg SuTuThSa@0900 PO 07/10/19 09:00 07/14/19 11:33 DC 07/13/19 08:44 Torsemide (Demadex) 60 mg MoWeFr@0900 PO 07/09/19 09:00 07/14/19 11:33 DC 07/11/19 08:27 Vitamin D (Vitamin D) 2,000 units QHS PO 07/08/19 21:00 07/14/19 11:33 DC 07/13/19 21:10 LACY ZHANG MD Jul 14, 2019 12:58
[2019-07-15] MEDS ORDERED: predniSONE 20 MG TAB PO SCH (09:00)
[2019-07-18] MEDS ORDERED: predniSONE 10 MG TAB PO SCH (09:00)
[2019-07-19] MEDS ORDERED: predniSONE 20 MG TAB PO SCH (09:00)
[2019-07-21] MEDS ORDERED: predniSONE 5 MG TAB PO SCH (09:00)
--- NOTE | 2019-07-22 18:47 | PMRDS ---
DATE OF ADMISSION: 07/08/2019 DATE OF DISCHARGE: 07/14/2019 CHIEF COMPLAINT/DISCHARGE DIAGNOSIS: Sepsis. HISTORY OF PRESENT ILLNESS: Mrs. Ball is a pleasant, 84-year-old female who was initially hospitalized on 06/01/2019 until 06/05/2019 with complaints of generalized weakness. Her initial presentation was difficulty getting in and out of bed due to upper and lower extremity weakness. During that hospitalization, she did not have any fever, but was noted to have a urinary tract infection and was treated with antibiotics, but due to persistent weakness she was transferred to [facility] for rehabilitation. When patient was on antibiotics she was readmitted on 06/13/2019 and discharged on 06/23/2019. She was treated with Solu-Medrol 40 mg for 48 hours. Her temperature was 101. She received intravenous (IV) meropenem for 10 days from 06/13/2019 to 06/23/2019, vancomycin from 06/13/2019 to 06/20/2019 and Zithromax for 5 days. She was being treated for a presumed pneumonia as her chest x-ray showed persistent lower lobe consolidation. Urine culture on 06/13/2019 was negative, but the one on 06/09/2019, which had been obtained at the [facility], was positive for Enterococcus faecalis. On 06/23/2019, the patient was doing fairly well, she was afebrile, she was transferred back to [facility] for rehabilitation. Readmitted on 07/03/2019, for fever of 103.1. She required pressors for 24 hours. She was on Solu-Medrol 40 mg IV from 07/03/2019 to 07/07/2019. She had an elevated CRP at 15.3. After her Solu-Medrol IV, the patient was continued on prednisone tapering dose. On 07/08/2019, she was on 60 mg, from 07/09/2019 to 07/11/2019 on 40 mg, 07/12/2019 to 07/14/2019 on 30 mg, 07/15/2019 to 07/17/2019 on 20 mg, and as she was being tapered down the patient started complaining of increasing joint pain. She told the rehabilitation doctor, Dr. Steiner, that she wanted her sulfasalazine back, which had been placed on hold for a couple weeks. On 07/14/2019, the patient spiked a fever of 103.1 and again a urine culture was positive for Klebsiella. The patient has complained of mild dysuria intermittently with all those episodes and she was started on IV Zosyn which she has received from 07/14/2019 to 07/21/2019. Currently, she states that her dysuria has resolved but now her right index finger is very swollen. She has not had a fever since 07/15/2019, but she does complain of index pain. Her prednisone is currently at 5 mg. She has been restarted at sulfasalazine at a dose of 1000 mg twice a day. From 07/14/2019 to 07/21/2019, she was on once a day, and prior to that, that was on hold for a couple weeks. Patient states she is feeling better, she has no nausea, vomiting, or diarrhea, no abdominal pain, no back pain other than her chronic low back pain. She does not have any rash. She has chronic shortness of breath and is oxygen dependent. She has a history of allergic asthma with IgA levels over 17,000 and she is on chronic oxygen. PAST MEDICAL HISTORY: Is significant for: 1. Recurrent urinary tract infection/colonization. 2. Abnormal chest CT with pneumonia. 3. History of allergic asthma. 4. Chronic diastolic congestive heart failure. 5. Essential tremors, she sees a neurologist in [place]. 6. Cervical dystonia. 7. Coronary artery disease status post percutaneous coronary intervention (PCI). 8. Chronic hypertension. 9. Chronic macrocytic anemia. 10. Hypothyroidism. 11. Hyperlipidemia. 12. Obesity. 13. Rheumatoid arthritis, for which she had been on sulfasalazine for over five years, but has not seen a construction assistant; she receives all of her prescriptions from Dr. Pearson, her primary care provider, and had been stable. 14. Obstructive sleep apnea. 15. Nonocclusive thrombus on Xarelto started on 06/29/2019. 16. Recent hospitalization with septic shock requiring pressors on 07/03/2019 with urinary tract infection and Klebsiella. HOSPITAL COURSE: The patient was admitted on a comprehensive physical therapy (PT), occupational therapy (OT), speech language pathology program. She received 24-hour nursing supervision. The patient was maintained on a steroid taper and finished up a course of IV Zosyn for recent bilateral pneumonia. She received vest therapy, Acapella and supplemental oxygen. She was maintained on Xarelto 10 mg for a left upper extremity superficial thrombosis. The patient initially did well in therapy. However, on 07/14/2019, the patient developed fever of 103 and 102, and decision was made to transfer her to higher level of care for further workup of fever of unknown origin. FUNCTIONAL HISTORY: On discharge patient was standby to moderate assist for functional transfers, able to ambulate 65 feet at a standby assist level. DISCHARGE MEDICATIONS: As per discharge summary. Thank you for this referral. Edited: [facility] 07/23/2019 1117 MTDD
== END 2019-07-14 11:30 | disposition short-term general hospital (02) | DRG 194 ==
LOC: M PM&R 17:05
PROVIDERS: ADMIT Physical Medicine & Rehabilitation; ATTEND Physical Medicine & Rehabilitation
DX: J18.9 Pneumonia, unspecified organism (principal); N39.0 Urinary tract infection, site not specified; I50.32 Chronic diastolic (congestive) heart failure; I82.612 Acute embolism and thrombosis of superficial veins of left upper extremity; J45.909 Unspecified asthma, uncomplicated; Z99.81 Dependence on supplemental oxygen; E66.9 Obesity, unspecified; Z68.33 Body mass index [BMI] 33.0-33.9, adult; D53.9 Nutritional anemia, unspecified; G24.3 Spasmodic torticollis; G25.0 Essential tremor; E03.9 Hypothyroidism, unspecified; I11.0 Hypertensive heart disease with heart failure; E78.5 Hyperlipidemia, unspecified; M06.9 Rheumatoid arthritis, unspecified; G47.33 Obstructive sleep apnea (adult) (pediatric); G62.9 Polyneuropathy, unspecified; Z79.899 Other long term (current) drug therapy; Z88.1 Allergy status to other antibiotic agents; Z88.5 Allergy status to narcotic agent; Z88.6 Allergy status to analgesic agent; Z88.8 Allergy status to other drugs, medicaments and biological substances; M72.0 Palmar fascial fibromatosis [Dupuytren]; Z79.51 Long term (current) use of inhaled steroids; I25.10 Atherosclerotic heart disease of native coronary artery without angina pectoris; Z98.61 Coronary angioplasty status

== ENCOUNTER 2019-07-14 10:37 | Inpatient (IN) | payer MEDICARE ==
[~2019-07-14] VITALS: Ht 152.4 cm; Wt 79.0 kg
[2019-07-14 11:36] VITALS: BP 132/75
[2019-07-14] MEDS ORDERED: PIPERACILLIN/TAZOBACTAM SOD 4.5 GM in D5W MINI-BAG PLUS 50 ML IV SCH (12:00)
[2019-07-14] MEDS ORDERED: VITA1CHW7 PO (12:41)
[2019-07-14] MEDS ORDERED: ZOSY3INJ2 IV (12:49)
[2019-07-14] MEDS ORDERED: FLEET ENEMA PR PRN (13:00)
[2019-07-14] MEDS ORDERED: NYSTATIN 100,000 UNITS/GM TOPICAL PWD 15 GM TOP PRN (13:00)
[2019-07-14] MEDS ORDERED: BISACODYL 10 MG SUPP PR PRN (13:00)
--- NOTE | 2019-07-14 13:00 | HPEPDOC ---
General Date of Admission 07/14/2019 Date of Service: Jul 14, 2019 Attending Physician: PATRICIA MCCAIN MD Chief Complaint The patient is a 84-year-old female admitted with a reason for visit of Sepsis. Source: Patient Exam Limitations: No limitations Timing/Duration: 24 hours Associated Symptoms: Fever History of Present Illness 84 -year-old W with a recent admission for pansensitive Klebs UTI and PNA who was recently discharged to ARU where she completed her 7d of zosyn, in the setting of 4 recent admissions for acute sepsis with fever, tachycardia with sometimes que septic shock in the setting of UTI and/or PNA, now returning to medicine with fever, chills, lethargy, 4 days after completion of her 7d of zosyn and recently restarting her sulfasalazine for her RA. While in the ARU, she had been doing very well with intensive PT/OT but overnight developed a fever to Tax 103.1, was tachycardic and otherwise normotensive and medicine overnight provider was called who pancultured her for blood and urine cultures and started on empiric zosyn, while her hypoxemia slightly worsened from 2L NC to 3L with a CXR that was read as with slightly increased opacities at the left base consistent with atelectasis vs. consolidation and effusion. This morning when I saw her she was noticeably weaker than her recent baseline with two assist from a commode, reported increased urgency without que dysuria and we discussed that I would readmit her to medicine for sepsis and hold her diuretics and sulfasalazine. ROS was negative for abdominal pain, nausea, emesis, diarrhea, constipation, chest pain and palpitations. She did report swelling of her 2nd left digit that she reports to likely be her RA. Home Medications Scheduled Albuterol Sulf (Albuterol Sulfate) 2.5 Mg/3 Ml Vial.neb, 2.5 MG INH BID, (Reported) 0700, 2000 Ascorbic Acid (Ascorbic Acid) 500 Mg Tablet, 500 MG PO DAILY, (Reported) Atorvastatin Calcium (Atorvastatin Calcium) 40 Mg Tablet, 40 MG PO QHS, (Reported) Budesonide (Budesonide) 0.5 Mg/2 Ml Ampul.neb, 0.5 MG INH BID, (Reported) 0900, 1700 Calcium Carbonate/Vitamin D3 (Calcium 500 mg Chewable Tablet) 1 Each Tab.chew, 500 MG PO BID, (Reported) Cholecalciferol (Vitamin D3) (Vitamin D3) 2,000 Unit Tab.chew, 2,000 UNIT PO QHS, (Reported) Ferrous Sulfate (Ferrous Sulfate) 325 Mg Tablet, 325 MG PO DAILY, (Reported) Guaifenesin (Mucinex) 600 Mg Tab.er.12h, 1,200 MG PO BID Latanoprost (Xalatan) 0.005% 2.5ML Drops, 1 DROP OU QHS, (Reported) Levothyroxine Sodium (Synthroid) 100 Mcg Tablet, 100 MCG PO DAILY, (Reported) Magnesium Hydroxide (Milk of Magnesia) 400 Mg/5 Ml Oral.susp, 2,400 MG PO Q2D, (Reported) EVERY OTHER NIGHT Metoprolol Succinate (Metoprolol Succinate) 25 Mg Tab.er.24h, 25 MG PO DAILY, (Reported) Mometasone/Formoterol (Dulera 200 Mcg/5 Mcg Inhaler) 13 Gm Hfa.aer.ad, 2 PUFF INH BID, (Reported) Nortriptyline HCl (Nortriptyline HCl) 10 Mg Capsule, 10 MG PO BID, (Reported) Piperacillin Sodium/Tazobactam (Zosyn 3.375 Gram Vial) 3.375 Gm Vial, 1 INJ IV Q6H, (Reported) Prednisone (Prednisone) 20 Mg Tablet, 40 MG PO DAILY Primidone (Primidone) 250 Mg Tab, 250 MG PO TID, (Reported) 0800, 1200, QHS Rivaroxaban (Xarelto) 10 Mg Tablet, 10 MG PO QHS, (Reported) Spironolactone (Aldactone) 25 Mg Tab, 25 MG PO DAILY, (Reported) Sulfasalazine (Sulfasalazine) 500 Mg Tab, 1,000 MG PO DAILY, (Reported) Torsemide (Torsemide) 20 Mg Tablet, 60 MG PO 3XW, (Reported) SUNDAY, SUNDAY AND SUNDAY Torsemide (Torsemide) 20 Mg Tablet, 40 MG PO 4XWK, (Reported) SUN/TUE/THURS/SAT Umeclidinium [place] (Incruse Ellipta) 62.5 Mcg/Inh Inh, 1 PUFF INH DAILY, (Reported) Scheduled PRN Acetaminophen (Acetaminophen) 500 Mg Tablet, 1,000 MG PO Q8H PRN for PAIN / FEVER, (Reported) Bisacodyl (Bisacodyl) 10 Mg Supp.rect, 10 MG GA DAILY PRN for CONSTIPATION, (Reported) Nystatin (Nystatin Powder) 15 Gm Powder, 1 DOSE TOP DAILY PRN for RASH, (Reported) APPLY TO ABDOMINAL FOLDS AFTER BATH NEEDED Sennosides/Docusate Sodium (Senna-S Tablet) 1 Each Tablet, 2 TAB PO BID PRN for CONSTIPATION, (Reported) Sodium Phosphate,Calvert-Dibasic (Fleet Enema) 133 Ml Enema, 1 SUSAN GA DAILY PRN for CONSTIPATION, (Reported) Allergies Coded Allergies: ibuprofen (Verified Allergy, Severe, respiratory distress, 05/08/19) Cephalosporins (Verified Allergy, Intermediate, SEVERE HIVES, 05/08/19) iodine (Verified Allergy, Intermediate, SEVERE HIVES, 05/08/19) tetracycline (Verified Allergy, Intermediate, hives, 06/13/19) cephalexin (Verified Allergy, Mild, RASH (FROM kEFLEX), 05/08/19) ciprofloxacin (Verified Allergy, Unknown, 06/01/19) NSAIDS (Non-Steroidal Anti-Inflamma (Verified Adverse Reaction, Intermediate, unable to take d/t asthma, 06/13/19) morphine (Verified Adverse Reaction, Intermediate, HALLUCINATIONS, 05/08/19) Past Medical History Medical History Recent admission for septic shock 2/2 Klebsiella UTI Chronic hypoxemic respiratory failure 2/2 probable HAP on chronic asthma Chronic diastolic CHF Essential Tremors Cervical dystonia CAD status post PCI Chronic Hypertension Chronic Macrocytic anemia Hypothyroidism Hyperlipidemia Obesity Rheumatoid arthritis. Obstructive sleep apnea. Superficial basilic vein nonocclusive thrombus on Xarelto 10 mg daily for 45 days. 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 WILSON 03/16/2015 HYSTERECTOMY ?1974 TONSILLECTOMY A CHILD Family History Significant Family History: No pertinent family hx Social History * Smoker: Denies Alcohol: Denies Drugs: denies Recent Travel/Sick Contacts: Denies: Recent travel, Recent sick contacts Psychosocial History: No pertinent psych hx Lives at home but has not been home in a long time due to recurrent sepsis admissions and discharge to rehabilitation A-FIB/CHADSVASC A-FIB History Current/History of A-Fib/PAF?: No Current PO Anticoag Therapy: Yes Age/Risk Factor Scoring CHADSVASC: CHADSVASC Response (Comments) Value Age Risk Factor Age >/= 75 years old 2 Gender Risk Factor Female 1 Hx of CHF Yes 1 Hx of HTN Yes 1 Hx of Stroke/TIA/or VTE No 0 Hx of Diabetes No 0 Hx of Vascular Disease Yes 1 Total 6 Treatment Treatment ordered: Apixaban Review of Systems Constitutional: Reports: Chills, Fever, Weakness; Denies: Night Sweats Eyes: Denies: Pain, Vision change ENT: Denies: Head Aches, Ear Pain, Dysphagia Skin: Denies: Rash, Lesions, Breakdown Pulmonary: Denies: Dyspnea, Cough, Pleuritic Chest Pain Cardiovascular: Denies: Chest Pain, Palpitations, Orthopnea, Paroxysmal Noc. Dyspnea, Edema, Lt Headedness Gastrointestinal: Denies: Nausea, Vomiting, Abdominal Pain, Diarrhea Genitourinary: Reports: Frequency; Denies: Dysuria, Incontinence, Hematuria, Retention Hematologic: Denies: Bruising, Bleeding Excessively Endocrine: Denies: Polydipsia, Polyphagia, Polyuria, Heat Intolerance, Cold Intolerance, Other Endocrine Sx Musculoskeletal: Denies: Neck Pain, Back Pain, Joint Pain, Muscle Pain, Spasms Neurological: Reports: Weakness; Denies: Numbness, Incoordination, Change in speech, Confusion, Seizures Psych: Reports: Mood Normal; Denies: Depression, Memory Issues Physical Examination General Exam: Positive: Alert, No Acute Distress Eye Exam: Positive: PERRLA, Conjunctiva & lids normal, EOMI; Negative: Sclera icteric ENT Exam: Positive: Atraumatic, Mucous membr. moist/pink, Pharynx Normal Neck Exam: Positive: Supple; Negative: JVD, thyromegaly Chest Exam: Positive: Diminished (diminished bases but otherwise did not hear que crackles); Negative: Rales, Rhonchi, Wheezing Heart Exam: Positive: Rate Normal, Regular Rhythm, Normal S1, Normal S2; Negative: Murmurs, Rubs Abdomen Exam: Positive: Normal bowel sounds, Soft; Negative: Tenderness, Hepatospenomegaly Extremity Exam: Positive: Edema (improved ankle to midshin edema bilaterally), Normal pulses; Negative: Clubbing, Cyanosis Skin Exam: Positive: Nl turgor and temperature; Negative: Breakdown, Lesion Neuro Exam: Positive: Normal Speech, Strength at 5/5 X4 ext (4-5/5 in all four extremities), Normal Tone, Sensation Intact, Cranial Nerves 3-12 NL Psych Exam: Positive: Mental status NL, Memory Intact, Oriented x 3 Vital Signs BP 132/75 HR 98 RR 21 O2 sat 95% on 2L NC T 98.4 Assessment/Plan 84 -year-old W with a recent admission for pansensitive Klebs UTI and PNA who was recently discharged to ARU where she completed her 7d of zosyn, in the setting of 4 recent admissions for acute sepsis with fever, tachycardia with sometimes que septic shock in the setting of UTI and/or PNA, now returning to medicine with fever, chills, lethargy, 4 days after completion of her 7d of zosyn and recently restarting her sulfasalazine for her RA, thus far with a CXR showing slightly increased opacities at the left base consistent with atelectasis vs. consolidation and ongoing sepsis workup. #Sepsis with fever, tachycardia and mild leukocytosis with LLL with increased consolidative process c/f PNA, with ongoing infectious workup -continue empiric zosyn -follow up urine and blood cultures -monitor daily CBC -Had recent CT A/P without acute pathology (07/03), with no current abdominal complaints and benign exam, also recently had a TTE (07/04) without evidence of vegetations and no new murmur -order sputum culture #Anemia -Currently stable from prior, will monitor #Acute on chronic hypoxic respiratory failure likely 2/2 PNA -Currently on 2 L of nasal cannula and saturating appropriately -On duonebs and albuterol Superficial basilic vein nonocclusive thrombus diagnosed at last hospital stay -continue Xarelto 10 mg daily for a total on 45 days, started on June 21 #Chronic diastolic CHF -Hold home torsemide,aldactone, toprol, while septic -strict I/Os and continue home fluid restriction for now (1.8L) #Essential Tremors on Botulinium injections -continue primidone #CAD status post PCI -continue statin -hold metoprolol for now #Hypothyroidism -synthroid #Hypertension -hold torsemide, toprol and aldactone #Hyperlipidemia -continue statin #Obesity with GALO -QHS CPAP #DVT ppx: -on xarelto #Deconditioning: -PT/OT Dispo: 4 pav with tele Plan / VTE VTE Prophylaxis Ordered?: Yes PATRICIA MCCAIN MD Jul 14, 2019 12:23
[2019-07-14 14:00] VITALS: BP 131/74
[2019-07-14] MEDS: guaiFENesin ER 600 MG TAB PO SCH ×2 (14:41→21:00)
[2019-07-14] MEDS: PRIMIDONE 250 MG TAB PO SCH ×2 (15:59→21:57)
[2019-07-14] MEDS: PIPERACILLIN/TAZOBACTAM SOD 3.375 GM in D5W MINI-BAG PLUS 50 ML IV SCH ×2 (15:59→21:58)
[2019-07-14] MEDS ORDERED: RIVAROXABAN 10 MG TAB (XARELTO) PO SCH (18:00)
[2019-07-14] MEDS: ALBUTEROL SULFATE 2.5 MG/0.5 ML INH NEB SOLN INH SCH (18:32)
[2019-07-14] MEDS: BUDESONIDE 0.5 MG/2 ML INHALATION SUSPENSION INH SCH (18:33)
[2019-07-14] MEDS: CALCIUM/VITAMIN D 500 MG TAB PO SCH (21:57)
[2019-07-14] MEDS: NORTRIPTYLINE 10 MG CAP PO SCH (21:57)
[2019-07-14] MEDS: ATORVASTATIN 20 MG TAB PO SCH (21:57)
[2019-07-14] MEDS: VITAMIN D 1,000 INTERNATIONAL UNITS TABLET PO SCH (21:57)
[2019-07-14] MEDS: LATANOPROST 0.005% OPHTH SOLN 2.5 ML OU SCH (21:58)
[2019-07-14 22:00] VITALS: BP 122/68
[2019-07-15] MEDS: PIPERACILLIN/TAZOBACTAM SOD 3.375 GM in D5W MINI-BAG PLUS 50 ML IV SCH ×4 (03:15→22:17)
[2019-07-15] MEDS: ACETAMINOPHEN 500 MG TAB PO PRN (05:28)
[2019-07-15] MEDS: LEVOTHYROXINE 100MCG TABLET (0.1MG) PO SCH (05:28)
[2019-07-15 06:00] VITALS: BP 132/74
[2019-07-15 06:12] LABS: HEMATOCRIT 31.5 % (36.0-47.0); MEAN CORPUSCULAR HEMOGLOBIN 33.1 pg (27.0-33.0); MEAN CORPUSCULAR HGB CONC 31.7 g/dl (32.0-36.5); MEAN CORPUSCULAR VOLUME 104.3 fl (80.0-96.0); PLATELET COUNT, AUTOMATED 224 10^3/uL (150-450); RED BLOOD COUNT 3.02 10^6/uL (4.00-5.40); WHITE BLOOD COUNT 11.3 10^3/uL (4.0-10.0)
[2019-07-15 06:40] LABS: ALBUMIN 2.5 GM/DL (3.2-5.2); BILIRUBIN,TOTAL 0.9 MG/DL (0.2-1.0); CREATININE FOR GFR 1.02 MG/DL (0.55-1.30); GLOMERULAR FILTRATION RATE 54.8 (>32); MAGNESIUM LEVEL 1.9 MG/DL (1.8-2.4); POTASSIUM SERUM 3.4 MEQ/L (3.5-5.1); TOTAL PROTEIN 7.7 GM/DL (6.4-8.2)
[2019-07-15] MEDS: ALBUTEROL SULFATE 2.5 MG/0.5 ML INH NEB SOLN INH SCH ×2 (08:42→19:48)
[2019-07-15] MEDS: BUDESONIDE 0.5 MG/2 ML INHALATION SUSPENSION INH SCH ×2 (08:42→19:48)
[2019-07-15] MEDS ORDERED: ENOXAPARIN 40 MG/0.4 ML SYRINGE (J1650) SC SCH (09:00)
[2019-07-15] MEDS: guaiFENesin ER 600 MG TAB PO SCH ×2 (09:00→21:00)
[2019-07-15] MEDS ORDERED: predniSONE 20 MG TAB PO SCH (09:00)
[2019-07-15] MEDS: PRIMIDONE 250 MG TAB PO SCH ×3 (09:06→21:53)
[2019-07-15] MEDS: FERROUS SULFATE 325MG TAB PO SCH (09:07)
[2019-07-15] MEDS: CALCIUM/VITAMIN D 500 MG TAB PO SCH ×2 (09:07→21:53)
[2019-07-15] MEDS: ASCORBIC ACID 500 MG TAB PO SCH (09:07)
[2019-07-15] MEDS: NORTRIPTYLINE 10 MG CAP PO SCH ×2 (09:07→21:53)
[2019-07-15] MEDS: METOPROLOL SUCC *XL* 25MG TAB (TopROL *XL*) PO SCH (09:07)
[2019-07-15] MEDS: predniSONE 20 MG TAB PO SCH (09:07)
[2019-07-15 14:00] VITALS: BP 138/84
--- NOTE | 2019-07-15 15:09 | REP ---
Clinical: Fever of unknown origin. Technique: Axial noncontrast images from the thoracic inlet to the upper abdomen with coronal and sagittal re-formations. Findings: Bilateral lower lobe consolidations with air bronchograms and small consolidation at the lingula may represent multifocal pneumonia and should be correlated clinically. No significant effusion. No pneumothorax. Mediastinal lymph nodes are nonspecific and likely reactive. Tracheobronchial tree is patent. Mediastinum demonstrates atherosclerotic changes to the thoracic aorta and coronary arteries. Skeletal structures demonstrate age-related degenerative changes. Impression: Bibasilar consolidations with air bronchograms suggesting multifocal pneumonia. Correlation recommended. Electronically Signed by Davi Smith MD 07/15/2019 03:01 P
[2019-07-15] MEDS ORDERED: LIDOCAINE 1% MDV 20ML VIAL As Ordered ONE (15:15)
[2019-07-15] MEDS: ENOXAPARIN 80 MG/0.8 ML SYRINGE (J1650) SC SCH (18:29)
[2019-07-15] MEDS: LATANOPROST 0.005% OPHTH SOLN 2.5 ML OU SCH (21:53)
[2019-07-15] MEDS: ATORVASTATIN 20 MG TAB PO SCH (21:53)
[2019-07-15] MEDS: VITAMIN D 1,000 INTERNATIONAL UNITS TABLET PO SCH (21:53)
[2019-07-15 22:00] VITALS: BP 124/66
--- NOTE | 2019-07-16 00:45 | IPNPDOC ---
Text Note Date of Service The patient was seen on 07/15/19. NOTE SUBJECTIVE: -Afebrile -No complaints this morning -Was speaking with her daughter on the phone whom I updated OBJECTIVE: PHYSICAL EXAMINATION: GENERAL APPEARANCE: Alert, conversant, no apparent distress SKIN: No bruising or rash LUNGS: Diminished at bilateral bases otherwise no wheezing and moving air moderately well, on 2L HEART: S1 and S2 present and regular rate and rhythm ABDOMEN: Nontender EXTREMITIES: 1+ pitting edema to midshins, otherwise [facility] LABORATORY DATA: Please see below.Reviewed. 84 -year-old W with a recent admission for pansensitive Klebs UTI and PNA who was recently discharged to ARU where she completed her 7d of zosyn, in the setting of 4 recent admissions for acute sepsis with fever, tachycardia with sometimes que septic shock in the setting of UTI and/or PNA, now returning to medicine with fever, chills, lethargy, 4 days after completion of her 7d of zosyn and recently restarting her sulfasalazine for her RA, thus far with a CXR showing slightly increased opacities at the left base consistent with atelectasis vs. consolidation and ongoing sepsis workup. #Sepsis with fever, tachycardia and mild leukocytosis with LLL with increased consolidative process c/f PNA, with ongoing infectious workup -continue empiric zosyn -follow up urine and blood cultures -monitor daily CBC -Had recent CT A/P without acute pathology (07/03), with no current abdominal complaints and benign exam, also recently had a TTE (07/04) without evidence of vegetations and no new murmur -order sputum culture -Plan for LEROY, tomorrow and LP thereafter for fever of unclear origin. #Anemia -Currently stable from prior, will monitor #Acute on chronic hypoxic respiratory failure likely 2/2 PNA -Currently on 2 L of nasal cannula and saturating appropriately -On duonebs and albuterol Superficial basilic vein nonocclusive thrombus diagnosed at last hospital stay -hold Xarelto 10 mg daily. use lovenox 80 BID for a total on 45 days, started on June 21 #Chronic diastolic CHF -Hold home torsemide,aldactone, toprol, while septic -strict I/Os and continue home fluid restriction for now (1.8L) #Essential Tremors on Botulinium injections -continue primidone #CAD status post PCI -continue statin -hold metoprolol for now #Hypothyroidism -synthroid #Hypertension -hold torsemide, toprol and aldactone #Hyperlipidemia -continue statin #Obesity with GALO -QHS CPAP #DVT ppx: -on lovenox 80 BID to allow LP, hold xeralto #Deconditioning: -PT/OT Dispo: 4 pav with tele VS,Fishbone, I+O VS, Fishbone, I+O Laboratory Tests 07/15/19 05:21 Vital Signs Date Time Temp Pulse Resp B/P (MAP) Pulse Ox O2 Delivery O2 Flow Rate FiO2 07/15/19 22:00 97.7 78 14 124/66 (85) 98 Nasal Cannula 3.0 I&O- Last 24 Hours up to 6 AM 07/16/19 05:59 Intake Total 680 ml Output Total 800 ml Balance -120 ml PATRICIA MCCAIN MD Jul 16, 2019 00:45
[2019-07-16] MEDS: PIPERACILLIN/TAZOBACTAM SOD 3.375 GM in D5W MINI-BAG PLUS 50 ML IV SCH ×4 (03:46→21:30)
[2019-07-16] MEDS: ENOXAPARIN 80 MG/0.8 ML SYRINGE (J1650) SC SCH (05:38)
[2019-07-16] MEDS: LEVOTHYROXINE 100MCG TABLET (0.1MG) PO SCH (05:38)
[2019-07-16 05:54] LABS: HEMATOCRIT 26.3 % (36.0-47.0); HEMOGLOBIN 8.3 g/dl (12.0-15.5); MEAN CORPUSCULAR HEMOGLOBIN 33.1 pg (27.0-33.0); MEAN CORPUSCULAR HGB CONC 31.6 g/dl (32.0-36.5); MEAN CORPUSCULAR VOLUME 104.8 fl (80.0-96.0); PLATELET COUNT, AUTOMATED 207 10^3/uL (150-450); RED BLOOD COUNT 2.51 10^6/uL (4.00-5.40); WHITE BLOOD COUNT 7.8 10^3/uL (4.0-10.0)
[2019-07-16 06:00] VITALS: BP 106/56
[2019-07-16 06:29] LABS: ALBUMIN 2.1 GM/DL (3.2-5.2); BILIRUBIN,TOTAL 0.5 MG/DL (0.2-1.0); CALCIUM LEVEL 8.7 MG/DL (8.8-10.2); CREATININE FOR GFR 0.96 MG/DL (0.55-1.30); GLOMERULAR FILTRATION RATE 58.8 (>32); POTASSIUM SERUM 3.5 MEQ/L (3.5-5.1)
[2019-07-16] MEDS: ALBUTEROL SULFATE 2.5 MG/0.5 ML INH NEB SOLN INH SCH ×2 (07:19→21:30)
[2019-07-16] MEDS: BUDESONIDE 0.5 MG/2 ML INHALATION SUSPENSION INH SCH ×2 (07:19→21:30)
[2019-07-16] MEDS: guaiFENesin ER 600 MG TAB PO SCH ×2 (09:00→20:10)
[2019-07-16] MEDS: CALCIUM/VITAMIN D 500 MG TAB PO SCH ×3 (09:00→21:18)
[2019-07-16] MEDS: PRIMIDONE 250 MG TAB PO SCH ×3 (10:25→21:18)
[2019-07-16] MEDS: FERROUS SULFATE 325MG TAB PO SCH (10:25)
[2019-07-16] MEDS: predniSONE 20 MG TAB PO SCH (10:25)
[2019-07-16] MEDS: ASCORBIC ACID 500 MG TAB PO SCH (10:25)
[2019-07-16] MEDS: NORTRIPTYLINE 10 MG CAP PO SCH ×2 (10:26→21:18)
[2019-07-16] MEDS: METOPROLOL SUCC *XL* 25MG TAB (TopROL *XL*) PO SCH (10:26)
[2019-07-16 14:00] VITALS: BP 113/64
[2019-07-16] MEDS ORDERED: fentaNYL 100 MCG/2 ML INJECTION (J3010) As Ordered ONE (15:45)
[2019-07-16] MEDS ORDERED: propofoL 200 MG/20 ML VIAL As Ordered ONE (15:45)
[2019-07-16] MEDS ORDERED: LIDOCAINE VISCOUS 2% SOLN 15ML UDC As Ordered ONE (15:53)
[2019-07-16] MEDS ORDERED: CETACAINE SPRAY 5GM As Ordered ONE (15:53)
[2019-07-16] MEDS ORDERED: MIDAZOLAM INJ 2 MG/2 ML VIAL (J2250) As Ordered ONE (15:59)
[2019-07-16 17:15] VITALS: BP 129/74
--- NOTE | 2019-07-16 17:18 | IPNPDOC ---
Text Note Date of Service The patient was seen on 07/16/19. NOTE SUBJECTIVE: -Afebrile -Unhappy this morning with several complaints about the medical team staff including nursing, aides, and per nursing myself as well. We were able to make an agreeable plan together, with nursing present -Went back in the afternoon and updated daughter as well OBJECTIVE: PHYSICAL EXAMINATION: GENERAL APPEARANCE: Alert, conversant, no apparent distress SKIN: No bruising or rash LUNGS: Diminished at bilateral bases otherwise no wheezing and moving air moderately well, on 2L HEART: S1 and S2 present and regular rate and rhythm ABDOMEN: Nontender EXTREMITIES: 1+ pitting edema to midshins, otherwise [facility] LABORATORY DATA: Please see below. Reviewed. WBC 7.8, Hgb 8.3, K 3.5, Cr 0.96, procalcitonin 0.62 CT chest: Bibasilar consolidations with air bronchograms suggesting multifocal pneumonia. LEROY done this afternoon: negative for endocarditis Micro: UCx: >100k klebsiella Assessment 84 -year-old W with a recent admission for pansensitive Klebs UTI and PNA who was recently discharged to ARU where she completed her 7d of zosyn, in the setting of 4 recent admissions for acute sepsis with fever, tachycardia with sometimes que septic shock in the setting of UTI and/or PNA, now returning to medicine with fever, chills, lethargy, 4 days after completion of her 7d of zosyn and recently restarting her sulfasalazine for her RA, now with CT chest s howing multifocal PNA and UCx growing klebsiella again. #Sepsis with fever, tachycardia and mild leukocytosis now with confirmed klebsiella UTI and multifocal PNA -continue empiric zosyn -follow up urine and blood cultures -monitor daily CBC -Had recent CT A/P without acute pathology (07/03), with no current abdominal complaints and benign exam, also recently had a TTE (07/04) without evidence of ve getations and no new murmur. -CT chest with multifocal PNA -UCx showing Klebsiella UTI -LEROY this afternoon showed definitely, no vegetations -hold lovenox for LP tomorrow -Discussed reinfection with Klebsiella and frequent UTIs with Dr. Juarez (urology) who suggested treating the UTI and when resolved, placing her on suppressive 100mg QD of macrobid and referring her as an outpatient. -Discussed her sulfasalazine with Dr. Sofia of rheumatology who reassured that sulfasalazine does not function as an immunomodulator that is immunosuppressive and does not increase risk for infection, and would be ok to restart now. We also discussed the idea of checking immunoglobulins but may not be of greatest yield while acutely infected. #Anemia -Technically appears as a downtrend to 10s to 8s but looking at trend, had stably been in the 8s, will monitor for now #Acute on chronic hypoxic respiratory failure likely 2/2 multifocal PNA: now stably back on 2L -Currently on 2 L of nasal cannula and saturating appropriately -On duonebs and albuterol Superficial basilic vein nonocclusive thrombus diagnosed at last hospital stay -hold Xarelto 10 mg daily. Was on lovenox 80 BID currently held for LP tomorrow -AC started 06/21 and is to be taken for 45 days. #Chronic diastolic CHF -Hold home torsemide,aldactone, toprol, while infected, will restarted once reliably normotensive -strict I/Os and continue home fluid restriction for now (1.8L) #Essential Tremors on Botulinium injections -continue primidone #CAD status post PCI -continue statin -continue holding metoprolol for now #Hypothyroidism -synthroid #Hypertension -continue holding torsemide, toprol and aldactone #Hyperlipidemia -continue statin #Obesity with GALO -QHS CPAP #DVT ppx: -on lovenox 80 BID to allow LP, hold xeralto #Deconditioning: -PT/OT Dispo: 4 pav with tele VS,Fishbone, I+O VS, Fishbone, I+O Laboratory Tests 07/16/19 05:21 Vital Signs Date Time Temp Pulse Resp B/P (MAP) Pulse Ox O2 Delivery O2 Flow Rate FiO2 07/16/19 16:50 77 18 117/67 (84) 95 Nasal Cannula 2 07/16/19 16:45 98.7 I&O- Last 24 Hours up to 6 AM 07/16/19 06:00 Intake Total 820 ml Output Total 1400 ml Balance -580 ml PATRICIA MCCAIN MD Jul 16, 2019 17:18
--- NOTE | 2019-07-16 17:27 | T-ECHO ---
DATE OF PROCEDURE: 07/16/2019 REFERRING PHYSICIAN: Dr. Jacob PREPROCEDURE DIAGNOSIS: Recurrent sepsis, fever of unknown origin. POSTPROCEDURE DIAGNOSIS: No vegetations. Mild aortic valve sclerosis. 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 FINDINGS: No vegetations. Mild aortic valve sclerosis. 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 PROCEDURE: Transesophageal echocardiogram. SURGEON: Phillip Buckley MD SALES ASSISTANT DISPLAYS: None. IV SEDATION: Propofol IV per [employer]. COMPLICATIONS: None. PROCEDURE DESCRIPTION: Patient received Cetacaine spray to the back of the pharynx. She received IV propofol administered by the [employer]. After receiving adequate sedation esophageal intubation was accomplished by Dr. Buckley without difficulty using a Jerson's 3D transesophageal echocardiogram probe. Rhythm was sinus. The left and right ventricles appeared normal in size and systolic function and without regional wall motion abnormalities. Left ventricle ejection fraction was 65% by visual estimate. Atria appeared unremarkable. Lipomatous hypertrophy of anterior atrial septum was present. No atrial septal defect or patent foramen ovale (PFO) detected by color flow Doppler. Pulse wave Doppler in the left upper pulmonary vein was normal. No pericardial effusion. No intracardiac masses. No vegetations seen on any of the cardiac valves. Aortic valve was three-cuspid with mild focal thickening and focal calcific deposits. No aortic regurgitation. Mitral leaflets were structurally and functionally normal with mild mitral regurgitation. Tricuspid leaflets were structurally normal with very mild tricuspid regurgitation. Pulmonic valve was normal. Distal aortic arch and descending thoracic aorta showed up to moderate amount of atheroma without mobile components. CONCLUSIONS: 1. No vegetations. 2. Normal left ventricle size and regional wall motion and left ventricle (LV) systolic function. 3. Mild aortic valve sclerosis of three-cuspid aortic valve. No aortic regurgitation. 4. Lipomatous hypertrophy of the anterior atrial septum. 5. 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
[2019-07-16 18:00] VITALS: BP 106/65
[2019-07-16] MEDS: ATORVASTATIN 20 MG TAB PO SCH (21:18)
[2019-07-16] MEDS: LATANOPROST 0.005% OPHTH SOLN 2.5 ML OU SCH (21:18)
[2019-07-16] MEDS: VITAMIN D 1,000 INTERNATIONAL UNITS TABLET PO SCH (21:18)
[2019-07-16 22:00] VITALS: BP 108/68
[2019-07-16] MEDS: SENOKOT S TAB PO PRN (22:40)
[2019-07-16] MEDS: ACETAMINOPHEN 500 MG TAB PO PRN (23:53)
[2019-07-17] MEDS: PIPERACILLIN/TAZOBACTAM SOD 3.375 GM in D5W MINI-BAG PLUS 50 ML IV SCH ×4 (03:09→22:11)
[2019-07-17] MEDS: LEVOTHYROXINE 100MCG TABLET (0.1MG) PO SCH (05:31)
[2019-07-17 06:00] VITALS: BP 111/64
[2019-07-17 06:15] LABS: HEMATOCRIT 26.7 % (36.0-47.0); HEMOGLOBIN 8.3 g/dl (12.0-15.5); MEAN CORPUSCULAR HEMOGLOBIN 32.9 pg (27.0-33.0); MEAN CORPUSCULAR HGB CONC 31.1 g/dl (32.0-36.5); PLATELET COUNT, AUTOMATED 244 10^3/uL (150-450); RED BLOOD COUNT 2.52 10^6/uL (4.00-5.40)
[2019-07-17 06:55] LABS: ALBUMIN 2.2 GM/DL (3.2-5.2); BILIRUBIN,TOTAL 0.2 MG/DL (0.2-1.0); CALCIUM LEVEL 8.4 MG/DL (8.8-10.2); CREATININE FOR GFR 1.05 MG/DL (0.55-1.30); POTASSIUM SERUM 3.6 MEQ/L (3.5-5.1); TOTAL PROTEIN 7.1 GM/DL (6.4-8.2)
[2019-07-17] MEDS: BUDESONIDE 0.5 MG/2 ML INHALATION SUSPENSION INH SCH ×2 (07:33→19:44)
[2019-07-17] MEDS: ALBUTEROL SULFATE 2.5 MG/0.5 ML INH NEB SOLN INH SCH ×2 (07:34→19:44)
--- NOTE | 2019-07-17 07:47 | IPNPDOC ---
Text Note Date of Service The patient was seen on 07/17/19. NOTE SUBJECTIVE: -Afebrile -No complaints this morning -Had LEROY yesterday, had questions and answered all her questions, told her I will speak with Phyllis as well with update. -Is anxious about the LP today, told her that I will be pretreating her for anxiety as we had already spoken as we had previously discussed OBJECTIVE: PHYSICAL EXAMINATION: GENERAL APPEARANCE: Alert, conversant, no apparent distress SKIN: No bruising or rash LUNGS: Diminished at bilateral bases otherwise no wheezing and moving air moderately well, on 2L HEART: S1 and S2 present and regular rate and rhythm ABDOMEN: Nontender EXTREMITIES: 1+ pitting edema to midshins, otherwise [facility] LABORATORY DATA: Please see below. Reviewed. WBC 6, Hgb 8.3, K 3.6, Cr 1.05, CT chest: Bibasilar consolidations with air bronchograms suggesting multifocal pneumonia. LEROY CONCLUSIONS: 1. No vegetations. 2. Normal left ventricle size and regional wall motion and left ventricle (LV) systolic function. 3. Mild aortic valve sclerosis of three-cuspid aortic valve. No aortic regurgitation. 4. Lipomatous hypertrophy of the anterior atrial septum. 5. 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 Micro: UCx: >100k klebsiella. BCx negative Assessment 84 -year-old W with a recent admission for pansensitive Klebs UTI and PNA who was recently discharged to [facility] where she completed her 7d of zosyn, in the sett ing of 4 recent admissions for acute sepsis with fever, tachycardia with sometimes que septic shock in the setting of UTI and/or PNA, now returning to medicine with fever, chills, lethargy, 4 days after completion of her 7d of zosyn and recently restarting her sulfasalazine for her RA, now with CT chest showing multifocal PNA and UCx growing klebsiella again. #Sepsis with fever, tachycardia and mild leukocytosis now with confirmed klebsiella UTI and multifocal PNA -continue empiric zosyn, day 3 -monitor daily CBC -Had recent CT A/P without acute pathology (07/03), with no current abdominal co mplaints and benign exam, also recently had a TTE (07/04) without evidence of vegetations and no new murmur. -CT chest with multifocal PNA -UCx showing Klebsiella UTI -LEROY on 07/16 showed definitely no evidence of vegetations -holding anticoagulation for LP today -Discussed reinfection with Klebsiella and frequent UTIs with Dr. Juarez (urology) who suggested treating the UTI and when resolved, placing her on suppressive 100mg QD of macrobid and referring her as an outpatient. -Discussed her sulfasalazine for RA with Dr. Sofia of rheumatology who reassured that sulfasalazine does not function as an immunomodulator that is immunosuppressive and does not increase risk for infection, and would be ok to restart now. We also discussed the idea of checking immunoglobulins but may not be of greatest yield while acutely infected. #Chronic macrocytic anemia -Technically appears as a downtrend to 10s to 8s but looking at trend, had stably been in the 8s, will monitor for now and check iron stores and Vit B12 #Acute on chronic hypoxic respiratory failure likely 2/2 multifocal PNA: now sta mealnie back on 2L -Currently on 2 L of nasal cannula and saturating appropriately -On duonebs and albuterol -day 3 of zosyn for multifocal PNA, not producing sputum. Told her that if she does, will send -Incentive spirometry Superficial basilic vein nonocclusive thrombus diagnosed at last hospital stay -hold Xarelto 10 mg daily. Was on lovenox 80 BID currently held for LP today -AC started 06/21 and is to be taken for 45 days. #Chronic diastolic CHF -Hold home torsemide,aldactone, toprol, while infected, will restarted once reliably normotensive -strict I/Os and continue home fluid restriction for now (1.8L) #Essential Tremors on Botulinium injections -continue primidone #CAD status post PCI -continue statin -continue holding metoprolol for now #Hypothyroidism -synthroid #Hypertension -continue holding torsemide, toprol and aldactone #Hyperlipidemia -continue statin #Obesity with GALO -QHS CPAP #DVT ppx: -on lovenox 80 BID to allow LP, hold xeralto #Deconditioning: -PT/OT #RA: -continue yolanda 1g daily of sulfasalazine Dispo: 4 pav with tele VS,Fishbone, I+O VS, Fishbone, I+O Laboratory Tests 07/17/19 05:11 Vital Signs Date Time Temp Pulse Resp B/P (MAP) Pulse Ox O2 Delivery O2 Flow Rate FiO2 07/17/19 06:00 97.3 77 18 111/64 (80) 99 Nasal Cannula 2.0 I&O- Last 24 Hours up to 6 AM 07/17/19 06:00 Intake Total 1270 ml Output Total 725 ml Balance 545 ml PATRICIA MCCAIN MD Jul 17, 2019 07:47
[2019-07-17] MEDS ORDERED: LORazepam 2 MG/ML VIAL (J2060) IV ONE (08:00)
[2019-07-17] MEDS: CALCIUM/VITAMIN D 500 MG TAB PO SCH ×2 (09:00→22:03)
[2019-07-17] MEDS: guaiFENesin ER 600 MG TAB PO SCH ×2 (09:00→22:01)
[2019-07-17] MEDS: PRIMIDONE 250 MG TAB PO SCH ×3 (09:23→22:10)
[2019-07-17] MEDS: predniSONE 20 MG TAB PO SCH (09:24)
[2019-07-17] MEDS: METOPROLOL SUCC *XL* 25MG TAB (TopROL *XL*) PO SCH (09:25)
[2019-07-17] MEDS: ASCORBIC ACID 500 MG TAB PO SCH (09:25)
[2019-07-17] MEDS: FERROUS SULFATE 325MG TAB PO SCH (09:25)
[2019-07-17] MEDS: NORTRIPTYLINE 10 MG CAP PO SCH ×2 (09:26→22:11)
[2019-07-17] MEDS: sulfaSALAzine 500 MG TABEC PO SCH (10:23)
[2019-07-17 10:36] LABS: PERCENT SATURATION 32.4 % (13.2-45.0)
[2019-07-17] MEDS ORDERED: MOM 30ML SUSPENSION UDC PO PRN (10:45)
[2019-07-17] MEDS ORDERED: LORazepam 2 MG/ML VIAL (J2060) As Ordered ONE (12:03)
[2019-07-17 13:45] VITALS: BP 117/63
[2019-07-17 14:00] VITALS: BP 116/64
[2019-07-17 14:14] LABS: APPEARANCE, CSF CLEAR (CLEAR); COLOR, CSF COLORLESS (COLORLESS); CSF TUBE# CELL CNT TUBE 2
[2019-07-17 14:17] LABS: CSF TUBE# GLU TUBE 2; CSF TUBE# TP TUBE 2; GLUCOSE CSF 68 MG/DL (40-75); TOTAL PROTEIN,CSF 66 MG/DL (15-45)
[2019-07-17 15:43] LABS: CSF TUBE# LDH TUBE 2; LDH CSF 32 U/L
[2019-07-17 18:00] VITALS: BP 128/78
--- NOTE | 2019-07-17 19:36 | REP ---
Lumbar puncture under fluoroscopic guidance. The procedure was performed by ZORA Philip, under the direct supervision of Dr. Gilman. Procedure: The risks and benefits of the procedure were explained to the patient and informed consent was obtained both verbally and written. Directly prior to the start of the procedure, a formal timeout was completed in the procedure room. The patient was placed prone on the fluoroscopy table. The L 2-3 interspinous level was localized and confirmed fluoroscopically, and the skin was marked dorsally at this level. The skin was prepped and draped in the usual sterile fashion. 5 mL of 1% lidocaine 10 mg/ml was utilized for local anesthetic. An 22 gauge 3.5 inches spinal needle was advanced without significant difficulty into the cerebrospinal space at the L 2-3 interspinous level. Approximately 9 mL of cloudy freely flowing cerebrospinal fluid was retrieved and sent to the laboratory for analysis. The patient tolerated the procedure well and there were no immediate complications. 0.2 minutes of fluoroscopy time was utilized for this procedure. Reviewed by ZORA Zimmerman 07/17/2019 05:45 P Electronically Signed by Uriel Gilman MD 07/17/2019 07:26 P
[2019-07-17 22:00] VITALS: BP 131/72
[2019-07-17] MEDS: ATORVASTATIN 20 MG TAB PO SCH (22:10)
[2019-07-17] MEDS: VITAMIN D 1,000 INTERNATIONAL UNITS TABLET PO SCH (22:11)
[2019-07-17] MEDS: SENOKOT S TAB PO PRN (22:11)
[2019-07-17] MEDS: LATANOPROST 0.005% OPHTH SOLN 2.5 ML OU SCH (22:11)
[2019-07-18] MEDS: PIPERACILLIN/TAZOBACTAM SOD 3.375 GM in D5W MINI-BAG PLUS 50 ML IV SCH ×4 (05:06→21:41)
[2019-07-18 06:00] VITALS: BP 118/66
[2019-07-18] MEDS: LEVOTHYROXINE 100MCG TABLET (0.1MG) PO SCH (06:17)
[2019-07-18 07:03] LABS: HEMATOCRIT 26.7 % (36.0-47.0); HEMOGLOBIN 8.3 g/dl (12.0-15.5); MEAN CORPUSCULAR HEMOGLOBIN 33.1 pg (27.0-33.0); MEAN CORPUSCULAR HGB CONC 31.1 g/dl (32.0-36.5); MEAN CORPUSCULAR VOLUME 106.4 fl (80.0-96.0); PLATELET COUNT, AUTOMATED 247 10^3/uL (150-450); RED BLOOD COUNT 2.51 10^6/uL (4.00-5.40)
[2019-07-18 07:22] LABS: BLOOD UREA NITROGEN 17 MG/DL (7-18); CALCIUM LEVEL 8.1 MG/DL (8.8-10.2); CARBON DIOXIDE LEVEL 29 MEQ/L (21-32); CHLORIDE LEVEL 108 MEQ/L (98-107); CREATININE FOR GFR 0.88 MG/DL (0.55-1.30); GLOMERULAR FILTRATION RATE > 60.0 (>32); GLUCOSE, FASTING 87 MG/DL (70-100); POTASSIUM SERUM 3.7 MEQ/L (3.5-5.1); SODIUM LEVEL 140 MEQ/L (136-145)
[2019-07-18 07:23] LABS: ALBUMIN 2.2 GM/DL (3.2-5.2); ALT/SGPT 13 U/L (12-78); BILIRUBIN,TOTAL 0.1 MG/DL (0.2-1.0)
[2019-07-18] MEDS: guaiFENesin ER 600 MG TAB PO SCH ×2 (09:00→21:00)
[2019-07-18] MEDS: BUDESONIDE 0.5 MG/2 ML INHALATION SUSPENSION INH SCH ×2 (09:24→20:21)
[2019-07-18] MEDS: ALBUTEROL SULFATE 2.5 MG/0.5 ML INH NEB SOLN INH SCH ×2 (09:24→20:21)
[2019-07-18] MEDS: CALCIUM/VITAMIN D 500 MG TAB PO SCH ×2 (09:47→21:00)
[2019-07-18] MEDS: FERROUS SULFATE 325MG TAB PO SCH (09:47)
[2019-07-18] MEDS: ASCORBIC ACID 500 MG TAB PO SCH (09:47)
[2019-07-18] MEDS: PRIMIDONE 250 MG TAB PO SCH ×3 (09:48→21:40)
[2019-07-18] MEDS: predniSONE 10 MG TAB PO SCH (09:48)
[2019-07-18] MEDS: NORTRIPTYLINE 10 MG CAP PO SCH ×2 (09:50→21:39)
[2019-07-18] MEDS: METOPROLOL SUCC *XL* 25MG TAB (TopROL *XL*) PO SCH (09:50)
[2019-07-18] MEDS: sulfaSALAzine 500 MG TABEC PO SCH (09:51)
[2019-07-18 14:00] VITALS: BP 110/59
[2019-07-18] MEDS ORDERED: SODIUM CHLORIDE HYPERTONIC 3% 15ML NEB SOL INH ONE (15:45)
[2019-07-18] MEDS ORDERED: ALBUTEROL SULFATE 2.5 MG/0.5 ML INH NEB SOLN NEB ONE (16:00)
--- NOTE | 2019-07-18 16:35 | IPNPDOC ---
Text Note Date of Service The patient was seen on 07/18/19. NOTE SUBJECTIVE: -Afebrile -No complaints this morning -Did well with PT this morning Interim events: -Daughter Phyllis now requested that she would like us to begin the initiation of effort to transfer Bonnie to [facility] so that their infectious diseases team may investigate why Bonnie continues to get pneumonias and has required 5 hospitalizations for sepsis. We discussed this at length and I told her that her recent debilitated state and significant amount of immobility and time spent in bed may play a role, while repeat infection of klebsiella is being addressed with treatment and then placement on suppressive therapy with plan for urology referral at discharge to investigate nidus vs. anatomical predispositions (already spoke with Dr. Juarez). I shared that if we are transfer the patient at this time when she is now resolving from known infec tions, it may be difficult to medically justify the transfer and instead would have to pursue the transfer as a specific family request. OBJECTIVE: PHYSICAL EXAMINATION: GENERAL APPEARANCE: Alert, conversant, no apparent distress SKIN: No bruising or rash LUNGS: Diminished at bilateral bases otherwise no wheezing and moving air moderately well, on 2L HEART: S1 and S2 present and regular rate and rhythm ABDOMEN: Nontender EXTREMITIES: 1+ pitting edema to midshins, otherwise [facility] LABORATORY DATA: Please see below. Reviewed. Stable. Pending LP studies. CT chest: Bibasilar consolidations with air bronchograms suggesting multifocal pneumonia. LEROY CONCLUSIONS: 1. No vegetations. 2. Normal left ventricle size and regional wall motion and left ventricle (LV) systolic function. 3. Mild aortic valve sclerosis of three-cuspid aortic valve. No aortic regurgitation. 4. Lipomatous hypertrophy of the anterior atrial septum. 5. 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 Micro: UCx: >100k klebsiella. BCx negative Assessment 84 -year-old W with a recent admission for pansensitive Klebs UTI and PNA who was recently discharged to [facility] where she completed her 7d of zosyn, in the setti ng of 4 recent admissions for acute sepsis with fever, tachycardia with sometimes que septic shock in the setting of UTI and/or PNA, now returning to medicine with fever, chills, lethargy, 4 days after completion of her 7d of zosyn and recently restarting her sulfasalazine for her RA, now with CT chest showing multifocal PNA and UCx growing klebsiella again. #Sepsis with fever, tachycardia and mild leukocytosis now with confirmed klebsiella UTI and multifocal PNA -continue empiric zosyn, day 4 -monitor daily CBC -Had recent CT A/P without acute pathology (07/03), with no current abdominal com plaints and benign exam, also recently had a TTE (07/04) without evidence of vegetations and no new murmur. -CT chest with multifocal PNA -UCx showing Klebsiella UTI -LEROY on 07/16 showed definitely no evidence of vegetations -Follow up LP studies -Discussed reinfection with Klebsiella and frequent UTIs with Dr. Juarez (urology) who suggested treating the UTI and when resolved, placing her on sup pressive 100mg QD of macrobid and referring her as an outpatient. -Discussed her sulfasalazine for RA with Dr. Sofia of rheumatology who reassured that sulfasalazine does not function as an immunomodulator that is immunosuppressive and does not increase risk for infection, and would be ok to restart, so its now back on. We also discussed the idea of checking immunoglobulins but may not be of greatest yield while acutely infected. #Chronic macrocytic anemia -Stably in the 8s, AOCI #Acute on chronic hypoxic respiratory failure likely 2/2 multifocal PNA: now stably back on 2L -Currently on 2 L of nasal cannula and saturating appropriately -On duonebs and albuterol -day 4 of zosyn for multifocal PNA, not producing sputum. Told her that if she does, will send -Incentive spirometry -Finally expectorating sputum, will send SCx Superficial basilic vein nonocclusive thrombus diagnosed at last hospital stay -restart Xarelto 10 mg daily -AC started 06/21 and is to be taken for 45 days. #Chronic diastolic CHF -Hold home torsemide,aldactone, toprol, normotensive, appears close to euvolemi c. was recently septic. -strict I/Os and continue home fluid restriction for now (1.8L) #Essential Tremors on Botulinium injections -continue primidone #CAD status post PCI -continue statin -continue holding metoprolol for now #Hypothyroidism -synthroid #Hypertension -continue holding torsemide, toprol and aldactone #Hyperlipidemia -continue statin #Obesity with GALO -QHS CPAP #DVT ppx: -cont 10mg xarelto #Deconditioning: -PT/OT #RA: -continue yolanda 1g daily of sulfasalazine Dispo: 4 pav with tele VS,Fishbone, I+O VS, Fishbone, I+O Laboratory Tests 07/18/19 06:40 Vital Signs Date Time Temp Pulse Resp B/P (MAP) Pulse Ox O2 Delivery O2 Flow Rate FiO2 07/18/19 14:00 97.4 78 19 110/59 (76) 99 Nasal Cannula 2.0 I&O- Last 24 Hours up to 6 AM 07/18/19 06:00 Intake Total 710 ml Output Total 800 ml Balance -90 ml PATRICIA MCCAIN MD Jul 18, 2019 16:35
[2019-07-18] MEDS: RIVAROXABAN 10 MG TAB (XARELTO) PO SCH (18:21)
[2019-07-18] MEDS: VITAMIN D 1,000 INTERNATIONAL UNITS TABLET PO SCH (21:39)
[2019-07-18] MEDS: ATORVASTATIN 20 MG TAB PO SCH (21:39)
[2019-07-18] MEDS: LATANOPROST 0.005% OPHTH SOLN 2.5 ML OU SCH (21:41)
[2019-07-18 22:00] VITALS: BP 144/81
[2019-07-19] MEDS: PIPERACILLIN/TAZOBACTAM SOD 3.375 GM in D5W MINI-BAG PLUS 50 ML IV SCH ×4 (03:50→22:33)
[2019-07-19 05:47] LABS: HEMATOCRIT 26.8 % (36.0-47.0); HEMOGLOBIN 8.4 g/dl (12.0-15.5); MEAN CORPUSCULAR HEMOGLOBIN 33.2 pg (27.0-33.0); MEAN CORPUSCULAR HGB CONC 31.3 g/dl (32.0-36.5); MEAN CORPUSCULAR VOLUME 105.9 fl (80.0-96.0); PLATELET COUNT, AUTOMATED 259 10^3/uL (150-450); RED BLOOD COUNT 2.53 10^6/uL (4.00-5.40); WHITE BLOOD COUNT 5.7 10^3/uL (4.0-10.0)
[2019-07-19] MEDS: LEVOTHYROXINE 100MCG TABLET (0.1MG) PO SCH (05:51)
[2019-07-19 06:00] VITALS: BP 140/83
[2019-07-19 06:15] LABS: ALBUMIN 2.2 GM/DL (3.2-5.2); ALT/SGPT 15 U/L (12-78); BILIRUBIN,TOTAL 0.1 MG/DL (0.2-1.0); BLOOD UREA NITROGEN 14 MG/DL (7-18); CARBON DIOXIDE LEVEL 29 MEQ/L (21-32); CHLORIDE LEVEL 109 MEQ/L (98-107); CREATININE FOR GFR 0.76 MG/DL (0.55-1.30); GLOMERULAR FILTRATION RATE > 60.0 (>32); GLUCOSE, FASTING 83 MG/DL (70-100); POTASSIUM SERUM 3.8 MEQ/L (3.5-5.1); SODIUM LEVEL 142 MEQ/L (136-145); TOTAL PROTEIN 7.4 GM/DL (6.4-8.2)
[2019-07-19] MEDS: ALBUTEROL SULFATE 2.5 MG/0.5 ML INH NEB SOLN INH SCH ×2 (06:28→19:37)
[2019-07-19] MEDS: BUDESONIDE 0.5 MG/2 ML INHALATION SUSPENSION INH SCH ×2 (06:28→19:37)
[2019-07-19] MEDS: ACETAMINOPHEN 500 MG TAB PO PRN (07:40)
[2019-07-19] MEDS: guaiFENesin ER 600 MG TAB PO SCH ×2 (09:00→22:05)
[2019-07-19] MEDS: CALCIUM/VITAMIN D 500 MG TAB PO SCH ×2 (09:00→21:00)
[2019-07-19] MEDS: sulfaSALAzine 500 MG TABEC PO SCH ×2 (09:02→22:34)
[2019-07-19] MEDS: ASCORBIC ACID 500 MG TAB PO SCH (09:02)
[2019-07-19] MEDS: FERROUS SULFATE 325MG TAB PO SCH (09:02)
[2019-07-19] MEDS: PRIMIDONE 250 MG TAB PO SCH ×3 (09:02→22:34)
[2019-07-19] MEDS: predniSONE 10 MG TAB PO SCH (09:03)
[2019-07-19] MEDS: NORTRIPTYLINE 10 MG CAP PO SCH ×2 (09:03→22:34)
[2019-07-19] MEDS: METOPROLOL SUCC *XL* 25MG TAB (TopROL *XL*) PO SCH (09:06)
[2019-07-19 14:00] VITALS: BP 117/62
[2019-07-19] MEDS: RIVAROXABAN 10 MG TAB (XARELTO) PO SCH (17:19)
--- NOTE | 2019-07-19 19:59 | IPNPDOC ---
Text Note Date of Service The patient was seen on 07/19/19. NOTE -Afebrile -No complaints this morning -Frustrated with meds being given at 4AM and labs being collected at 3AM, disturbs her sleep OBJECTIVE: PHYSICAL EXAMINATION: GENERAL APPEARANCE: Alert, conversant, no apparent distress, sitting up in chair SKIN: No bruising or rash LUNGS: Diminished at bilateral bases otherwise no wheezing and moving air moderately well, on 2L HEART: S1 and S2 present and regular rate and rhythm ABDOMEN: Nontender EXTREMITIES: 1+ pitting edema to midshins, otherwise [facility] LABORATORY DATA: Please see below. Reviewed. Stable. Pending LP cultures. Had elevated WBC with neutrophilia. CT chest: Bibasilar consolidations with air bronchograms suggesting multifocal pneumonia. LEROY CONCLUSIONS: 1. No vegetations. 2. Normal left ventricle size and regional wall motion and left ventricle (LV) systolic function. 3. Mild aortic valve sclerosis of three-cuspid aortic valve. No aortic regurgitation. 4. Lipomatous hypertrophy of the anterior atrial septum. 5. 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 Micro: UCx: >100k klebsiella. BCx negative Assessment 84 -year-old W with a recent admission for pansensitive Klebs UTI and PNA who was recently discharged to [facility]U where she completed her 7d of zosyn, in the setting of 4 recent admissions for acute sepsis with fever, tachycardia with sometimes que septic shock in the setting of UTI and/or PNA, now returning to medicine with fever, chills, lethargy, 4 days after completion of her 7d of zosyn and recently restarting her sulfasalazine for her RA, now with CT chest showing multifocal PNA and UCx growing klebsiella again. #Sepsis with fever, tachycardia and mild leukocytosis now with confirmed klebsiella UTI and multifocal PNA -continue empiric zosyn, day 5 -monitor daily CBC -Had recent CT A/P without acute pathology (07/03), with no current abdominal complaints and benign exam, also recently had a TTE (07/04) without evidence of vegetations and no new murmur. -CT chest with multifocal PNA -UCx showing Klebsiella UTI -LEROY on 07/16 showed definitely no evidence of vegetations -Follow up LP studies -Discussed reinfection with Klebsiella and frequent UTIs with Dr. Juarez (uro logy) who suggested treating the UTI and when resolved, placing her on suppressive 100mg QD of macrobid and referring her as an outpatient. -Discussed her sulfasalazine for RA with Dr. Sofia of rheumatology who reassured that sulfasalazine does not function as an immunomodulator that is immunosuppressive and does not increase risk for infection, and would be ok to restart, so its now back on. We also discussed the idea of checking immunoglobulins but may not be of greatest yield while acutely infected. #Chronic macrocytic anemia -Stably in the 8s, AOCI #Acute on chronic hypoxic respiratory failure likely 2/2 multifocal PNA: now stably back on 2L -Currently on 2 L of nasal cannula and saturating appropriately -On duonebs and albuterol -day 5 of zosyn for multifocal PNA, not producing sputum. Told her that if she does, will send -Incentive spirometry -Follow up SCx Superficial basilic vein nonocclusive thrombus diagnosed at last hospital stay -Xarelto 10 mg daily -AC started 06/21 and is to be taken for 45 days. #Chronic diastolic CHF -Hold home torsemide,aldactone, toprol, normotensive, appears close to euvolemic. was recently septic. -strict I/Os and continue home fluid restriction for now (1.8L) #Essential Tremors on Botulinium injections -continue primidone #CAD status post PCI -continue statin -continue holding metoprolol for now #Hypothyroidism -synthroid #Hypertension -continue holding torsemide, toprol and aldactone #Hyperlipidemia -continue statin #Obesity with GALO -QHS CPAP #DVT ppx: -cont 10mg xarelto #Deconditioning: -PT/OT #RA: -Increase her 1g daily of sulfasalazine to BID per her home baseline Dispo: 4 pav with tele VS,Juve, I+O VS, Fishbone, I+O Laboratory Tests 07/19/19 05:17 Vital Signs Date Time Temp Pulse Resp B/P (MAP) Pulse Ox O2 Delivery O2 Flow Rate FiO2 07/19/19 14:00 97.7 85 17 117/62 (80) 95 Nasal Cannula 2.0 I&O- Last 24 Hours up to 6 AM 07/19/19 06:00 Intake Total 1280 ml Output Total 1700 ml Balance -420 ml PATRICIA MCCAIN MD Jul 19, 2019 19:59
[2019-07-19 22:00] VITALS: BP 124/73
[2019-07-19] MEDS: ATORVASTATIN 20 MG TAB PO SCH (22:33)
[2019-07-19] MEDS: VITAMIN D 1,000 INTERNATIONAL UNITS TABLET PO SCH (22:34)
[2019-07-19] MEDS: LATANOPROST 0.005% OPHTH SOLN 2.5 ML OU SCH (22:34)
[2019-07-20] MEDS: ACETAMINOPHEN 500 MG TAB PO PRN ×3 (00:25→21:06)
[2019-07-20] MEDS: PIPERACILLIN/TAZOBACTAM SOD 3.375 GM in D5W MINI-BAG PLUS 50 ML IV SCH ×4 (04:13→21:00)
[2019-07-20] MEDS: LEVOTHYROXINE 100MCG TABLET (0.1MG) PO SCH (05:49)
[2019-07-20 06:00] VITALS: BP 129/74
[2019-07-20] MEDS: BUDESONIDE 0.5 MG/2 ML INHALATION SUSPENSION INH SCH ×2 (08:07→19:49)
[2019-07-20] MEDS: ALBUTEROL SULFATE 2.5 MG/0.5 ML INH NEB SOLN INH SCH ×2 (08:07→19:49)
[2019-07-20] MEDS: sulfaSALAzine 500 MG TABEC PO SCH ×2 (09:38→21:01)
[2019-07-20] MEDS: ASCORBIC ACID 500 MG TAB PO SCH (09:39)
[2019-07-20] MEDS: NORTRIPTYLINE 10 MG CAP PO SCH ×2 (09:39→21:01)
[2019-07-20] MEDS: guaiFENesin ER 600 MG TAB PO SCH ×2 (09:39→20:59)
[2019-07-20] MEDS: FERROUS SULFATE 325MG TAB PO SCH (09:39)
[2019-07-20] MEDS: METOPROLOL SUCC *XL* 25MG TAB (TopROL *XL*) PO SCH (09:40)
[2019-07-20] MEDS: PRIMIDONE 250 MG TAB PO SCH ×3 (09:40→21:01)
[2019-07-20] MEDS: predniSONE 10 MG TAB PO SCH (09:40)
[2019-07-20] MEDS: CALCIUM/VITAMIN D 500 MG TAB PO SCH ×2 (09:40→21:00)
--- NOTE | 2019-07-20 10:55 | IPNPDOC ---
Text Note Date of Service The patient was seen on 07/20/19. NOTE Subjective: -Afebrile -No complaints this morning DISCUSSION WITH PATIENT AND HER DAUGHTER NICOLLE ABOUT DISCHARGE PLAN: -They would like a hospital to hospital transfer to [facility], a [facility], with ID services. Their concern being a request into the further investigation of her recurrrent sepsis x 5 admissions now shortly after antibiotic courses, with recurrent PNA and UTIs. -I explained that at this time I do not have medical justification for the transfer as she is now clinically stable and they were identified sources of infection, namely Klebs UTI and multifocal PNA. We also did extensive fever of unknown origin workup that included an unrevealing LEROY without vegetations and an LP with WBCs with mild neutrophilia with pending cultures. -Plan prior to transfer is 7 days of zosyn which completes on 07/21, after which, in discussion with Dr. Juarez (urology) had decided to place her on 100mg macrobid daily as suppressive therapy for the UTIs. -On Sunday team would ideally initiate the request for transfer to [place] citing per family request. -The only team I have not engaged and that would be helpful to hear their thoughts are the pulmonary team about her recurrent PNAs. Her sales representative printing is Dr. Degroot who is on leave. OBJECTIVE: PHYSICAL EXAMINATION: GENERAL APPEARANCE: Alert, conversant, no apparent distress, sitting up in chair SKIN: No bruising or rash LUNGS: Diminished at bilateral bases otherwise no wheezing and moving air moderately well, on 2L HEART: S1 and S2 present and regular rate and rhythm ABDOMEN: Nontender EXTREMITIES: 1+ non pitting edema to midshins, otherwise [facility] LABORATORY DATA: Please see below. Reviewed. Stable. Pending LP cultures. Had elevated WBC with neutrophilia. CT chest: Bibasilar consolidations with air bronchograms suggesting multifocal pneumonia. LEROY CONCLUSIONS: 1. No vegetations. 2. Normal left ventricle size and regional wall motion and left ventricle (LV) systolic function. 3. Mild aortic valve sclerosis of three-cuspid aortic valve. No aortic regurgitation. 4. Lipomatous hypertrophy of the anterior atrial septum. 5. 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 Micro: UCx: >100k klebsiella. BCx negative Assessment 84 -year-old W with a recent admission for pansensitive Klebs UTI and PNA who was recently discharged to [facility]U where she completed her 7d of zosyn, in the setting of 4 recent admissions for acute sepsis with fever, tachycardia with sometimes que septic shock in the setting of UTI and/or PNA, now returning to medicine with fever, chills, lethargy, 4 days after completion of her 7d of zosyn and recently restarting her sulfasalazine for her RA, now with CT chest showing multifocal PNA and UCx growing klebsiella again. #Sepsis with fever, tachycardia and mild leukocytosis now with confirmed klebsiella UTI and multifocal PNA -continue empiric zosyn, day 6 of 7 -monitor daily CBC -Had recent CT A/P without acute pathology (07/03), with no current abdominal complaints and benign exam, also recently had a TTE (07/04) without evidence of vegetations and no new murmur. -CT chest with multifocal PNA -UCx showing Klebsiella UTI -LEROY on 07/16 showed definitely no evidence of vegetations -Follow up LP studies -Discussed reinfection with Klebsiella and frequent UTIs with Dr. Juarez (urology) who suggested treating the UTI and when resolved, placing her on suppressive 100mg QD of macrobid and referring her as an outpatient. -Discussed her sulfasalazine for RA with Dr. Sofia of rheumatology who reassured that sulfasalazine does not function as an immunomodulator that is immunosuppressive and does not increase risk for infection, and would be ok to restart, so its now back on. We also discussed the idea of checking immunoglobulins but may not be of greatest yield while acutely infected. #Chronic macrocytic anemia -Stably in the 8s, AOCI #Acute on chronic hypoxic respiratory failure likely 2/2 multifocal PNA: now stably back on 2L -Currently on 2 L of nasal cannula and saturating appropriately -On duonebs and albuterol -day 6 of zosyn for multifocal PNA, sputum was sent a few days into Abx, growing a few mixed scott -Incentive spirometry -Follow up SCx Superficial basilic vein nonocclusive thrombus diagnosed at last hospital stay -Xarelto 10 mg daily -AC started 06/21 and is to be taken for 45 days. #Chronic diastolic CHF -Hold home torsemide,aldactone, toprol, normotensive, appears close to euvolemic. was recently septic. -strict I/Os and continue home fluid restriction for now (1.8L) #Essential Tremors on Botulinium injections -continue primidone #CAD status post PCI -continue statin -continue holding metoprolol for now #Hypothyroidism -synthroid #Hypertension -continue holding torsemide, toprol and aldactone #Hyperlipidemia -continue statin #Obesity with GALO -QHS CPAP #DVT ppx: -cont 10mg xarelto #Deconditioning: -PT/OT #RA: -1g BID of sulfasalazine Dispo: 4 pav with tele VS,Fishbone, I+O VS, Fishbone, I+O Vital Signs Date Time Temp Pulse Resp B/P (MAP) Pulse Ox O2 Delivery O2 Flow Rate FiO2 07/20/19 09:40 82 129/74 07/20/19 06:00 97.5 18 98 Nasal Cannula 2.0 I&O- Last 24 Hours up to 6 AM 07/20/19 05:59 Intake Total 2134 ml Output Total 1201 ml Balance 933 ml PATRICIA MCCAIN MD Jul 20, 2019 10:55
[2019-07-20 14:00] VITALS: BP 143/66
[2019-07-20] MEDS: RIVAROXABAN 10 MG TAB (XARELTO) PO SCH (18:13)
[2019-07-20] MEDS: ATORVASTATIN 20 MG TAB PO SCH (21:00)
[2019-07-20] MEDS: VITAMIN D 1,000 INTERNATIONAL UNITS TABLET PO SCH (21:00)
[2019-07-20] MEDS: LATANOPROST 0.005% OPHTH SOLN 2.5 ML OU SCH (21:00)
[2019-07-20] MEDS: SENOKOT S TAB PO PRN (21:42)
[2019-07-20 22:00] VITALS: BP 134/80
[2019-07-21] MEDS: PIPERACILLIN/TAZOBACTAM SOD 3.375 GM in D5W MINI-BAG PLUS 50 ML IV SCH ×2 (04:54→10:16)
[2019-07-21] MEDS: LEVOTHYROXINE 100MCG TABLET (0.1MG) PO SCH (05:40)
[2019-07-21 06:00] VITALS: BP 134/74
[2019-07-21] MEDS: BUDESONIDE 0.5 MG/2 ML INHALATION SUSPENSION INH SCH ×2 (07:55→19:43)
[2019-07-21] MEDS: ALBUTEROL SULFATE 2.5 MG/0.5 ML INH NEB SOLN INH SCH ×2 (07:55→19:43)
[2019-07-21] MEDS: guaiFENesin ER 600 MG TAB PO SCH ×3 (09:00→22:10)
[2019-07-21] MEDS: CALCIUM/VITAMIN D 500 MG TAB PO SCH ×2 (09:00→22:10)
[2019-07-21] MEDS: sulfaSALAzine 500 MG TABEC PO SCH ×2 (10:14→22:18)
[2019-07-21] MEDS: ASCORBIC ACID 500 MG TAB PO SCH (10:14)
[2019-07-21] MEDS: FERROUS SULFATE 325MG TAB PO SCH (10:14)
[2019-07-21] MEDS: NORTRIPTYLINE 10 MG CAP PO SCH ×2 (10:14→22:19)
[2019-07-21] MEDS: METOPROLOL SUCC *XL* 25MG TAB (TopROL *XL*) PO SCH (10:15)
[2019-07-21] MEDS: predniSONE 5 MG TAB PO SCH (10:15)
[2019-07-21] MEDS: PRIMIDONE 250 MG TAB PO SCH ×3 (11:56→22:18)
[2019-07-21 14:00] VITALS: BP 110/65
--- NOTE | 2019-07-21 16:19 | IPNPDOC ---
Text Note Date of Service The patient was seen on 07/21/19. NOTE DISCUSSION WITH PATIENT AND HER DAUGHTER NICOLLE ABOUT DISCHARGE PLAN: I had a detailed discussion with her daughter. They still want her to be transferred to [facility]. Tried to contact [facility] admitting an inpatient services with no response. I spoke with the ER, excepting coordinator and as per them, they would take the information and the patient can be sent there. I spoke with the daughter in detail and gave her the options that. We will discharge her from here and she will be able to take her to the [facility] tomorrow morning and she agreed. In the meanwhile, the patient's Zosyn has been completed. The patient's Macrobid cannot be started as the patient's GFR is less than I had a detailed discussion with pharmacy as well. No pulmonary coverage is present today and for that reason, the pulmonary consultation will be deferred in any case, the patient will be sent to the other hospital tomorrow. Currently, I will get LDH levels and B12 D glucan levels. OBJECTIVE: PHYSICAL EXAMINATION: GENERAL APPEARANCE: Alert, conversant, no apparent distress, sitting up in chair SKIN: No bruising or rash LUNGS: Diminished at bilateral bases otherwise no wheezing and moving air moderately well, on 2L HEART: S1 and S2 present and regular rate and rhythm ABDOMEN: Nontender EXTREMITIES: 1+ non pitting edema to midshins, otherwise [facility] LABORATORY DATA: Please see below. Reviewed. Stable. Pending LP cultures. Had elevated WBC with neutrophilia. CT chest: Bibasilar consolidations with air bronchograms suggesting multifocal pneumonia. LEROY CONCLUSIONS: 1. No vegetations. 2. Normal left ventricle size and regional wall motion and left ventricle (LV) systolic function. 3. Mild aortic valve sclerosis of three-cuspid aortic valve. No aortic regurgitation. 4. Lipomatous hypertrophy of the anterior atrial septum. 5. 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 Micro: UCx: >100k klebsiella. BCx negative Assessment 84 -year-old W with a recent admission for pansensitive Klebs UTI and PNA who was recently discharged to [facility] where she completed her 7d of zosyn, in the setting of 4 recent admissions for acute sepsis with fever, tachycardia with sometimes que septic shock in the setting of UTI and/or PNA, now returning to medicine with fever, chills, lethargy, 4 days after completion of her 7d of zosyn and recently restarting her sulfasalazine for her RA, now with CT chest showing multifocal PNA and UCx growing klebsiella again. 1 Sepsis with fever, tachycardia and mild leukocytosis now with confirmed klebsiella UTI and multifocal PNA. Completed the course of Zosyn. Had recent CT A/P without acute pathology (07/03), with no current abdominal complaints and benign exam, also recently had a TTE (07/04) without evidence of vegetations and no new murmur. CT chest with multifocal PNA, UCx showing Klebsiella UTI. She had a LEROY on 07/16 showed definitely no evidence of vegetations. He had the team discussed reinfection with Klebsiella and frequent UTIs with Dr. Juarez (urology) who suggested treating the UTI and when resolved, placing her on suppressive 100mg QD of macrobid and as the patient GFR is less than 60. The pharmacy had a detailed discussion. Anemia. The patient cannot be given to this. The campaign analyst already has reassured that sulfasalazine does not function as an immunomodulator that is immunosuppressive and does not increase risk for infection, and would be ok to restart, so its now back on. I will get beta glucan and LDH levels today. We will also get lower extremities venous Dopplers to rule out any DVT causing fever. 2. Chronic macrocytic anemia . Stable 3, Acute on chronic hypoxic respiratory failure likely 2/2 multifocal PNA: now stably back on 2L. Dual nebs when necessary. Completed 6 days of Zosyn. Incentive spirometry 4. Superficial basilic vein nonocclusive thrombus diagnosed at last hospital stay : Xarelto 10 mg daily, AC started 06/21 and is to be taken for 45 days. 5. Chronic diastolic CHF . Hold home torsemide,aldactone, toprol, normotensive, appears close to euvolemic. was recently septic. We'll reassess on discharge 6. CAD status post PCI. Continue statin. Lopressor is on hold. 7. Hypothyroidism . Continue synthroid 8. Hypertension: continue holding torsemide, toprol and aldactone 9. Obesity with GALO QHS CPAP Potential discharge tomorrow and the daughter will take her to the ER at [place]. VS,Fishbone, I+O VS, Fishbone, I+O Vital Signs Date Time Temp Pulse Resp B/P (MAP) Pulse Ox O2 Delivery O2 Flow Rate FiO2 07/21/19 14:00 99.2 86 18 110/65 (80) 99 Nasal Cannula 2.0 I&O- Last 24 Hours up to 6 AM 07/21/19 05:59 Intake Total 1750 ml Output Total 1750 ml Balance 0 ml SARA LUONG MD Jul 21, 2019 16:19
[2019-07-21 16:22] LABS: C REACTIVE PROTEIN QUANTITATIV 2.44 MG/DL (0.00-0.30); RHEUMATOID FACTOR QUANT 18.6 IU/ML (<15.0)
[2019-07-21] MEDS: ACETAMINOPHEN 500 MG TAB PO PRN ×2 (17:03→22:22)
[2019-07-21] MEDS: RIVAROXABAN 10 MG TAB (XARELTO) PO SCH (17:04)
[2019-07-21 22:00] VITALS: BP 117/65
--- NOTE | 2019-07-21 22:08 | CR ---
DATE OF CONSULTATION: 07/21/2019 REASON FOR CONSULTATION: Asked to consult by hospitalist for evaluation of patient with recurrent fever for the past 6 weeks. HISTORY OF PRESENT ILLNESS: Mrs. Ball is a pleasant, 84-year-old female who was initially hospitalized on 06/01/2019 until 06/05/2019 with complaints of generalized weakness. Her initial presentation was difficulty getting in and out of bed due to upper and lower extremity weakness. During that hospitalization, she did not have any fever, but was noted to have a urinary tract infection and was treated with antibiotics, but due to persistent weakness she was transferred to [facility] for rehabilitation. When patient was on antibiotics she was readmitted on 06/13/2019 and discharged on 06/23/2019. She was treated with Solu-Medrol 40 mg for 48 hours. Her temperature was 101. She received IV meropenem for 10 days from 06/13/2019 to 06/23/2019, vancomycin from 06/13/2019 to 06/20/2019 and Zithromax for 5 days. She was being treated for a presumed pneumonia as her chest x-ray showed persistent lower lobe consolidation. Urine culture on 06/13/2019 was negative, but the one on 06/09/2019, which had been obtained at the correction, was positive for Enterococcus faecalis. On 06/23/2019, the patient was doing fairly well, she was afebrile, she was transferred back to [facility] for rehabilitation. Readmitted on 07/03/2019, for fever of 103.1. She required pressors for 24 hours. She was on Solu-Medrol 40 mg IV from 07/03/2019 to 07/07/2019. She had an elevated CRP at 15.3. After her Solu-Medrol IV, the patient was continued on prednisone tapering dose. On 07/08/2019, she was on 60 mg, from 07/09/2019 to 07/11/2019 on 40 mg, 07/12/2019 to 07/14/2019 on 30 mg, 07/15/2019 to 07/17/2019 on 20 mg, and as she was being tapered down the patient started complaining of increasing joint pain. She told the rehabilitation doctor, Dr. Steiner, that she wanted her sulfasalazine back, which had been placed on hold for a couple weeks. On 07/14/2019, the patient spiked a fever of 103.1 and again a urine culture was positive for Klebsiella. The patient has complained of mild dysuria intermittently with all those episodes and she was started on IV Zosyn which she has received from 07/14/2019 to 07/21/2019. Currently, she states that her dysuria has resolved but now her right index finger is very swollen. She has not had a fever since 07/15/2019, but she does complain of index pain. Her prednisone is currently at 5 mg. She has been restarted at sulfasalazine at a dose of 1000 mg twice a day. From 07/14/2019 to 07/21/2019, she was on once a day, and prior to that, that was on hold for a couple weeks. Patient states she is feeling better, she has no nausea, vomiting, or diarrhea, no abdominal pain, no back pain other than her chronic low back pain. She does not have any rash. She has chronic shortness of breath and is oxygen dependent. She has a history of allergic asthma with IgA levels over 17,000 and she is on chronic oxygen. PAST MEDICAL HISTORY: Is significant for recurrent urinary tract infection/colonization, abnormal chest CT with pneumonia, history of allergic asthma, chronic diastolic congestive heart failure, essential tremors, she sees a neurologist in [place], cervical dystonia, coronary artery disease status post percutaneous coronary intervention (PCI), chronic hypertension, chronic macrocytic anemia, hypothyroidism, hyperlipidemia, obesity, rheumatoid arthritis for which she had been on sulfasalazine for over 5 years but has not seen a it security analyst, she receives all of her prescriptions from Dr. Pearson, her primary care provider, and had been stable, obstructive sleep apnea, nonocclusive thrombus on Xarelto started on 06/29/2019, recent hospitalization with septic shock requiring pressors on 07/03/2019 with urinary tract infection and Klebsiella. FAMILY HISTORY: Nonrevealing. SOCIAL HISTORY: She denies smoking, alcohol, or illicit drug use. Up until 2019, the patient was fairly independent, living alone, but since this hospitalization on 06/11/2019, she has been in and out of rehabilitation and correction. ALLERGIES: CEPHALOSPORINS, NONSTEROIDAL ANTI-INFLAMMATORY DRUGS (NSAIDs), CEPHALEXIN, CIPROFLOXACIN, IBUPROFEN, IODINE, MORPHINE, TETRACYCLINE. MEDICATIONS: Patient currently on: - prednisone 5 mg daily - sulfasalazine 1000 mg by mouth twice a day - Xarelto 10 mg by mouth daily - milk of magnesium as needed - vitamin C 500 mg by mouth daily - ferrous sulfate 325 mg daily - metoprolol 25 mg by mouth daily - levothyroxine 100 mcg daily - Lipitor 40 mg by mouth nightly - Xalatan eye drops both eyes nightly - nortriptyline 10 mg by mouth twice a day - vitamin D 2000 units by mouth nightly - albuterol nebulizers - budesonide 0.5 mg inhaled twice a day - primidone 250 mg by mouth three times a day - Dulcolax as needed - nystatin to abdominal folds as needed for rash LABORATORY DATA: White count on 07/15/2019 was 11.3, today was 5.7, hemoglobin 8.4, hematocrit 26.8, platelets 259, sodium 142, potassium 3.8, chloride 109, bicarbonate 29, BUN 14, creatinine 0.76, glucose 83, calcium 8, bilirubin 0.1, AST 19, ALT 15, alkaline phosphatase 49, LDH 238, CRP 2.44, albumin 2.2, vitamin B12 381, iron 57, TIBC 176, iron saturation 32%, ferritin 620, elevated due to inflammation. 07/14/2019 procalcitonin was 0.75 which is suggestive of bacterial infection. Procalcitonin on 07/04/2019 was also elevated at 13.9. During that hospitalization, patient had septic shock and was on pressors. Syphilis 07/05/2019 was negative. HIV was negative. MRSA screen twice on 07/04/2019 and 06/17/2019 was negative. Influenza A and B done on 04/13/2019 and 07/03/2019 were both negative for A and B. PHYSICAL EXAMINATION: She is a healthy looking female in no acute distress. Afebrile, temperature is 99.2, pulse 86, respiration rate is 18, blood pressure 110/65, oxygen saturation 99% on two liters nasal cannula, which is her baseline. Heart: Normal S1, S2, no murmurs appreciated. Lungs: Diminished at bases, but no wheezes, rales, or rhonchi. Abdomen: Soft, obese, nontender, no hepatosplenomegaly. Extremities: No clubbing, cyanosis, or edema. No calf tenderness. Right index finger swollen digit throughout the entire digit, tender to touch forearm, erythematous. +1 nonpitting edema to the mid shins. No swollen joints. Knees normal range of motion. Hips normal range of motion. Neck no stiffness. Neck is supple, no adenopathy. Oropharynx is clear with no thrush. CT chest showed bibasilar consolidation with air bronchograms suggestive of multifocal pneumonia. LEROY showed no vegetation with normal left ventricular size and regional wall motion. Left ventricular systolic function is normal. Mild aortic valve sclerosis. Lipomatous hypertrophy of the anterior atrial septum and moderate atheroma in the descending thoracic aorta. Sputum culture from 07/18/2019 had yeast-like organisms. CSF BioFire polymerase chain reaction (PCR) was negative. CSF had 32 white cells on 07/17/2019 with 90% lymphocytes, 9% monocytes, and total protein of 66. Blood cultures from 07/14/2019 were negative. Respiratory panel 07/14/2019 was negative. Sputum culture from 07/04/2019 had yeast-like organism. Blood cultures 07/03/2019, two sets, were negative and urine culture was negative. Esophageal x-ray cookie swallow was performed on 07/10/2019, no evidence of penetration of aspiration. CT abdomen and pelvis done on previous hospitalization 07/03/2019 showed no masses, pancreas normal, spleen was normal, adrenal no masses, kidneys and ureter no hydronephrosis, stomach and bowel shows rectosigmoid anastomosis, normal appendix. Resolution of the left pleural effusion from 06/17/2019, but persistent bilateral lobe atelectasis or consolidation. Cholelithiasis with a large gallstone and status post partial colonic resection with rectosigmoid anastomosis. IMPRESSION: This is a pleasant, 84-year-old female with a previous history of rheumatoid arthritis who has been hospitalized for the past 6 weeks with recurrent episodes of fever, sepsis, elevated low back pain, and on two different occasions urinary tract infections with Klebsiella, recurrent pneumonia. She has received two broad-spectrum courses of antibiotics including IV meropenem, vancomycin from 06/13/2019 to 06/23/2019 followed by a second course of Zosyn from 07/03/2019 to 07/11/2019 and 07/14/2019 to 07/21/2019. With every hospitalization, the patient is very ill with a fever of 103, but she also received Solu-Medrol during those hospitalizations. Patient now has developed a severely swollen right index finger, which probably is a flareup of her rheumatoid arthritis. Her sulfasalazine had been on hold and since her prednisone is being tapered she is manifesting with a joint swelling and acute synovitis. She also has normal cerebrospinal fluid (CSF) finding with CSF pleocytosis with predominant lymphocytes, which is not infectious as her BioFire polymerase chain reaction (PCR) is negative, she did not have a headache, did not have any confusion this hospitalization, and I am concerned it could be inflammatory in nature, possibly related to her rheumatoid or possibly a vasculitis. Her chest CTs have consistently showed persistent multifocal pneumonia. Her sputum cultures have only had yeast organisms and I wonder whether this is a multifocal pneumonia versus a presentation of rheumatoid. Labs that were added today included IgG level 1740, IgA 373, IgM 126, IgA level 175, and rheumatoid factor was 18.6, TOM is still pending. Complement levels have been added, are pending. PLAN: Agree with Dr. Díaz. Patient has been on IV Zosyn from 07/03/2019 to 07/11/2019 for 9 days, followed by 07/14/2019 to 07/21/2019. I do not see any need to continue IV antibiotics. I would recommend rheumatology followup as soon as possible, hopefully at [facility]. I did call pathology to see if we could add a cytology on the cerebrospinal fluid (CSF) fluid to be sent to [place], but there is not enough fluid to send for cytology from the CSF. Case has been discussed with Marybeth, her daughter, who is a registered nurse and wants to take her to [place] to be evaluated at [facility] and I did ask her to make sure she sees rheumatology. I also recommended she makes sure she gets all the imaging studies that patient had done during this 6 week hospitalization.
[2019-07-21] MEDS: VITAMIN D 1,000 INTERNATIONAL UNITS TABLET PO SCH (22:18)
[2019-07-21] MEDS: ATORVASTATIN 20 MG TAB PO SCH (22:18)
[2019-07-21] MEDS: LATANOPROST 0.005% OPHTH SOLN 2.5 ML OU SCH (22:20)
[2019-07-22 06:00] VITALS: BP 129/70
[2019-07-22 06:15] LABS: FREE T4 1.02 NG/DL (0.76-1.46); THYROID STIMULATING HORMONE 1.32 uIU/ML (0.358-3.740)
[2019-07-22] MEDS: ACETAMINOPHEN 500 MG TAB PO PRN (06:40)
[2019-07-22] MEDS: LEVOTHYROXINE 100MCG TABLET (0.1MG) PO SCH (06:40)
--- NOTE | 2019-07-22 08:51 | DS.PDOC ---
Discharge Summary General Date of Admission Jul 14, 2019 at 11:36 Date of Discharge 07/22/19 Discharge Summary Chief Complaint Fever Final diagnosis UTI with Klebsiella Pneumonia Rheumatoid arthritis History of Present Illness 84 -year-old W with a recent admission for pansensitive Klebs UTI and PNA who was recently discharged to ARU where she completed her 7d of zosyn, in the setting of 4 recent admissions for acute sepsis with fever, tachycardia with sometimes que septic shock in the setting of UTI and/or PNA, returned to hospital with fever, chills, lethargy, 4 days after completion of her 7d of zosyn and recently restarting her sulfasalazine for her RA. While in the ARU, she had been doing very well with intensive PT/OT but developed a fever to Tax 103.1, was tachycardic and otherwise normotensive and medicine overnight provider was called who pancultured her for blood and urine cultures and started on empiric zosyn, while her hypoxemia slightly worsened from 2L NC to 3L with a CXR that was read as with slightly increased opacities at the left base consistent with atelectasis vs. consolidation and effusion. She also reported increased urgency without que dysuria , ROS was negative for abdominal pain, nausea, emesis, diarrhea, constipation, chest pain and palpitations. She did report swelling of her 2nd left digit that she reports to likely be her RA. The cultures from the rehabilitation for urine Q Klebsiella and the patient got full dose treatment with IV Zosyn. The team has had a discussion with the urologist wanted her to be on Macrobid to suppress a chronic UTI but I had a detailed discussion with pharmacy and because her GFR is less than 60 Macrobid is contraindicated. Also did repeat CAT scan of the abdomen, pelvis, which showed the lower part of the lungs did not show much of a difference and only showed some chronic changes. In any case, the patient got 7 dose of Zosyn. The patient's last febrile episode was on 07/15/19. The patient has a completely negative review of systems. The patient does have bilateral lower extremity edema and for that reason, venous Doppler was ordered yesterday and it still is pending. Along with that. Fungate L serologies were also ordered to rule out any fungal component of her pneumonia. I had a detailed discussion with her daughter as they still want her to be transferred to [facility]. Tried to contact [facility] admitting an inpatient services with no response. I spoke with the ER, coordinator and as per them, gave them the information and the patient can be sent there. I spoke with the daughter in detail and gave her the options that We will discharge her from here and she will be able to take her to the [facility] and she agreed. The patient has been appropriately treated and I think the only additional testing which needs to be done would be continue with lower extremity venous Dopplers and fungate L., And myoglobin in this is not a fever of unknown origin as the patient has rheumatoid arthritis as well as the UTI, which was the reason of her sepsis. If it is being labeled as fever of unknown origin. The patient will require further extensive workup with possible FDG PET or WBC scan. She had a LEROY on 07/16 showed definitely no evidence of vegetations. Also The director software already has reassured that sulfasalazine does not function as an immunomodulator that is immunosuppressive and does not increase risk for infection, and would be ok to restart, so its now back on. She also was diagnosed with Superficial basilic vein nonocclusive thrombus diagnosed at last hospital stay and is on Xarelto 10 mg daily, AC started 06/21 and can be discontinued now, but she has advised to take it for 45 days . she has been advised to go to the PCP for that so that it can be discontinued as soon as possible. As it was a superficial vein thrombosis PHYSICAL EXAMINATION: GENERAL APPEARANCE: Alert, conversant, no apparent distress, sitting up in chair SKIN: No bruising or rash LUNGS: Diminished at bilateral bases otherwise no wheezing and moving air moderately well, on 2L HEART: S1 and S2 present and regular rate and rhythm ABDOMEN: Nontender EXTREMITIES: 1+ non pitting edema to midshins, otherwise [facility] Radiology and LEROY CT chest: Bibasilar consolidations with air bronchograms suggesting multifocal pneumonia. LEROY CONCLUSIONS: 1. No vegetations. 2. Normal left ventricle size and regional wall motion and left ventricle (LV) systolic function. 3. Mild aortic valve sclerosis of three-cuspid aortic valve. No aortic regurgitation. 4. Lipomatous hypertrophy of the anterior atrial septum. 5. 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 Medications. As per discharge reconciliation medication list Activity as tolerated Diet. 2 g sodium diet Follow-up appointments. PCP in 1 week, pulmonology in 1 week Condition on discharge. Patient is medically optimized for discharge. Discharge disposition: Will be discharged from the hospital today and daughter is going to take her to the hospital Total time spent on this discharge including coordination of care, review of chart documentation and actual contact is around 35 minutes I have discussed in detail with the patient as well as the daughter regarding the discharge plan Vital Signs/I&Os Vital Signs Date Time Temp Pulse Resp B/P (MAP) Pulse Ox O2 Delivery O2 Flow Rate FiO2 07/22/19 06:00 98.2 83 18 129/70 (89) 100 Nasal Cannula 2.0 I&O- Last 24 Hours up to 6 AM 07/22/19 06:00 Intake Total 1390 ml Output Total 1300 ml Balance 90 ml Laboratory Data Labs 24H Laboratory Tests 2 07/21/19 15:26: Lactate Dehydrogenase 238, C-Reactive Protein, Quantitative 2.44H, Immunoglobulin A 373.0, Immunoglobulin G 1740H, Immunoglobulin M 126.0, Immunoglobulin E 175.0H, Rheumatoid Factor 18.6H 07/22/19 05:19: Erythrocyte Sedimentation Rate 129H, Thyroid Stimulating Hormone (TSH) 1.320, Free Thyroxine 1.02, Complement C3 114, Complement C4 23 Microbiology Microbiology 07/18/19 Gram Stain - Final, Complete 07/18/19 Sputum Culture - Final, Complete Yeast Like Organism 07/17/19 Stool Occult Blood (MARIE) - Final, Complete 07/17/19 Gram Stain - Final, Complete 07/17/19 CSF Culture - Final, Complete 07/17/19 - Final, Complete Discharge Medications Scheduled Albuterol Sulf (Albuterol Sulfate) 2.5 Mg/3 Ml Vial.neb, 2.5 MG INH BID, (Reported) 0700, 2000 Ascorbic Acid (Ascorbic Acid) 500 Mg Tablet, 500 MG PO DAILY, (Reported) Atorvastatin Calcium (Atorvastatin Calcium) 40 Mg Tablet, 40 MG PO QHS, (Reported) Budesonide (Budesonide) 0.5 Mg/2 Ml Ampul.neb, 0.5 MG INH BID, (Reported) 0900, 1700 Calcium Carbonate/Vitamin D3 (Calcium 500 mg Chewable Tablet) 1 Each Tab.chew, 500 MG PO BID, (Reported) Cholecalciferol (Vitamin D3) (Vitamin D3) 2,000 Unit Tab.chew, 2,000 UNIT PO QHS, (Reported) Ferrous Sulfate (Ferrous Sulfate) 325 Mg Tablet, 325 MG PO DAILY, (Reported) Guaifenesin (Mucinex) 600 Mg Tab.er.12h, 1,200 MG PO BID Latanoprost (Xalatan) 0.005% 2.5ML Drops, 1 DROP OU QHS, (Reported) Levothyroxine Sodium (Synthroid) 100 Mcg Tablet, 100 MCG PO DAILY, (Reported) Magnesium Hydroxide (Milk of Magnesia) 400 Mg/5 Ml Oral.susp, 2,400 MG PO Q2D, (Reported) EVERY OTHER NIGHT Metoprolol Succinate (Metoprolol Succinate) 25 Mg Tab.er.24h, 25 MG PO DAILY, (Reported) Mometasone/Formoterol (Dulera 200 Mcg/5 Mcg Inhaler) 13 Gm Hfa.aer.ad, 2 PUFF INH BID, (Reported) Nortriptyline HCl (Nortriptyline HCl) 10 Mg Capsule, 10 MG PO BID, (Reported) Primidone (Primidone) 250 Mg Tab, 250 MG PO TID, (Reported) 0800, 1200, QHS Rivaroxaban (Xarelto) 10 Mg Tablet, 10 MG PO QHS, (Reported) Spironolactone (Aldactone) 25 Mg Tab, 25 MG PO DAILY, (Reported) Sulfasalazine (Sulfasalazine) 500 Mg Tab, 1,000 MG PO DAILY, (Reported) Torsemide (Torsemide) 20 Mg Tablet, 60 MG PO 3XW, (Reported) SUNDAY, SUNDAY AND SUNDAY Torsemide (Torsemide) 20 Mg Tablet, 40 MG PO 4XWK, (Reported) SUN/TUE/THURS/SAT Umeclidinium Mccoll (Incruse Ellipta) 62.5 Mcg/Inh Inh, 1 PUFF INH DAILY, (Reported) Scheduled PRN Acetaminophen (Acetaminophen) 500 Mg Tablet, 1,000 MG PO Q8H PRN for PAIN / FEVER, (Reported) Bisacodyl (Bisacodyl) 10 Mg Supp.rect, 10 MG IA DAILY PRN for CONSTIPATION, (Reported) Nystatin (Nystatin Powder) 15 Gm Powder, 1 DOSE TOP DAILY PRN for RASH, (Reported) APPLY TO ABDOMINAL FOLDS AFTER BATH NEEDED Sennosides/Docusate Sodium (Senna-S Tablet) 1 Each Tablet, 2 TAB PO BID PRN for CONSTIPATION, (Reported) Sodium Phosphate,[place]-Dibasic (Fleet Enema) 133 Ml Enema, 1 SUSAN [place] DAILY PRN for CONSTIPATION, (Reported) Allergies Coded Allergies: ibuprofen (Verified Allergy, Severe, respiratory distress, 05/08/19) Cephalosporins (Verified Allergy, Intermediate, SEVERE HIVES, 05/08/19) iodine (Verified Allergy, Intermediate, SEVERE HIVES, 05/08/19) tetracycline (Verified Allergy, Intermediate, hives, 06/13/19) cephalexin (Verified Allergy, Mild, RASH (FROM kEFLEX), 05/08/19) ciprofloxacin (Verified Allergy, Unknown, 06/01/19) NSAIDS (Non-Steroidal Anti-Inflamma (Verified Adverse Reaction, Intermediate, unable to take d/t asthma, 06/13/19) morphine (Verified Adverse Reaction, Intermediate, HALLUCINATIONS, 05/08/19) SARA LUONG MD Jul 22, 2019 08:51
[2019-07-22] MEDS: guaiFENesin ER 600 MG TAB PO SCH (09:00)
[2019-07-22] MEDS: CALCIUM/VITAMIN D 500 MG TAB PO SCH (09:00)
[2019-07-22] MEDS: BUDESONIDE 0.5 MG/2 ML INHALATION SUSPENSION INH SCH (09:11)
[2019-07-22] MEDS: ALBUTEROL SULFATE 2.5 MG/0.5 ML INH NEB SOLN INH SCH (09:11)
[2019-07-22] MEDS: NORTRIPTYLINE 10 MG CAP PO SCH (09:49)
[2019-07-22] MEDS: ASCORBIC ACID 500 MG TAB PO SCH (09:49)
[2019-07-22] MEDS: sulfaSALAzine 500 MG TABEC PO SCH (09:49)
[2019-07-22] MEDS: PRIMIDONE 250 MG TAB PO SCH (09:49)
[2019-07-22] MEDS: predniSONE 5 MG TAB PO SCH (09:49)
[2019-07-22 09:50] VITALS: BP 125/88
[2019-07-22] MEDS: FERROUS SULFATE 325MG TAB PO SCH (09:50)
[2019-07-22] MEDS: METOPROLOL SUCC *XL* 25MG TAB (TopROL *XL*) PO SCH (09:50)
[2019-07-24 00:06] LABS: ANA (HEP2) Negative (.)
== END 2019-07-22 11:05 | disposition home health service (06) | DRG 871 ==
LOC: M MSPAV 11:36
PROVIDERS: ADMIT Internal Medicine; ATTEND Internal Medicine
PROC: 009U3ZX Drainage of Spinal Canal, Percutaneous Approach, Diagnostic (ICD-10-PCS; principal; 2019-07-17)
DX: A41.9 Sepsis, unspecified organism (principal); J96.21 Acute and chronic respiratory failure with hypoxia; J18.9 Pneumonia, unspecified organism; I50.32 Chronic diastolic (congestive) heart failure; I82.611 Acute embolism and thrombosis of superficial veins of right upper extremity; N39.0 Urinary tract infection, site not specified; N17.9 Acute kidney failure, unspecified; Z88.2 Allergy status to sulfonamides; Z88.4 Allergy status to anesthetic agent; Z88.5 Allergy status to narcotic agent; Z88.8 Allergy status to other drugs, medicaments and biological substances; Z79.899 Other long term (current) drug therapy; Z79.01 Long term (current) use of anticoagulants; G47.33 Obstructive sleep apnea (adult) (pediatric); M06.9 Rheumatoid arthritis, unspecified; E66.9 Obesity, unspecified; E78.5 Hyperlipidemia, unspecified; E03.9 Hypothyroidism, unspecified; D53.9 Nutritional anemia, unspecified; I11.0 Hypertensive heart disease with heart failure; I25.10 Atherosclerotic heart disease of native coronary artery without angina pectoris; Z98.61 Coronary angioplasty status; G24.3 Spasmodic torticollis; G25.0 Essential tremor; Z95.1 Presence of aortocoronary bypass graft; Z98.41 Cataract extraction status, right eye; Z98.42 Cataract extraction status, left eye; Z90.79 Acquired absence of other genital organ(s); Z68.34 Body mass index [BMI] 34.0-34.9, adult; B96.1 Klebsiella pneumoniae [K. pneumoniae] as the cause of diseases classified elsewhere

== ENCOUNTER 2019-08-03 15:58 | Inpatient (IN) | payer MEDICARE ==
[~2019-08-03] VITALS: Ht 152.4 cm; Wt 81.9 kg
[~2019-08-03 15:58] MED LIST changes: +VITA1CHW7 PO; +ZOSY3INJ2 IV
[2019-08-03] MEDS ORDERED: OXYC-517 PO (17:43)
[2019-08-03] MEDS ORDERED: B-12100T2 PO (17:43)
--- NOTE | 2019-08-03 18:35 | ECGEPIP ---
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
[2019-08-03] MEDS ORDERED: NS 1,000 ML IV SCH (19:00)
[2019-08-03 19:24] LABS: BASO % 0.5 % (0.0-1.0); EOS # 0.2 10^3/uL (0.0-0.5); EOS % 3.6 % (0.0-3.0); HEMATOCRIT 38.6 % (36.0-47.0); HEMOGLOBIN 12.2 g/dl (12.0-15.5); LYMPH # 1.2 10^3/uL (1.5-5.0); LYMPH % 19.5 % (24.0-44.0); MEAN CORPUSCULAR HGB CONC 31.6 g/dl (32.0-36.5); MEAN CORPUSCULAR VOLUME 104.3 fl (80.0-96.0); MONO # 0.4 10^3/uL (0.0-0.8); MONO % 6.4 % (0.0-5.0); NEUTROPHILS # 4.1 10^3/uL (1.5-8.5); NEUTROPHILS % 69.7 % (36.0-66.0); PLATELET COUNT, AUTOMATED 262 10^3/uL (150-450); WHITE BLOOD COUNT 5.9 10^3/uL (4.0-10.0)
[2019-08-03 19:46] LABS: OSMOLALITY SERUM 299 MOSM/KG (280-301)
[2019-08-03 20:00] LABS: ALBUMIN 2.6 GM/DL (3.2-5.2); ALT/SGPT 8 U/L (12-78); BILIRUBIN,DIRECT < 0.1 MG/DL (0.0-0.2); BILIRUBIN,TOTAL 0.2 MG/DL (0.2-1.0); BLOOD UREA NITROGEN 22 MG/DL (7-18); CALCIUM LEVEL 9.1 MG/DL (8.8-10.2); CARBON DIOXIDE LEVEL 30 MEQ/L (21-32); CHLORIDE LEVEL 101 MEQ/L (98-107); CK-MB VALUE MASS 1.3 NG/ML (<3.6); CPK CREATINE PHOSPHOKINASE 70 U/L (26-192); GLOMERULAR FILTRATION RATE 56.1 (>32); GLUCOSE, FASTING 86 MG/DL (70-100); MB/CK RELATIVE INDEX 1.86 (< OR =4); POTASSIUM SERUM 4.2 MEQ/L (3.5-5.1); SODIUM LEVEL 136 MEQ/L (136-145); THYROID STIMULATING HORMONE 0.737 uIU/ML (0.358-3.740); TOTAL PROTEIN 8.4 GM/DL (6.4-8.2); TROPONIN I < 0.02 NG/ML (< 0.10)
[2019-08-03] MEDS ORDERED: MAALOX 30 ML SUSP *UDC PO PRN (20:30)
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
[2019-08-03 21:55] VITALS: BP 134/58
[2019-08-03] MEDS ORDERED: CLINDAMYCIN 150 MG CAP PO SCH (22:00)
[2019-08-03] MEDS ORDERED: NYSTATIN 100,000 UNITS/GM TOPICAL PWD 15 GM TOP PRN (22:30)
[2019-08-03] MEDS ORDERED: FLEET ENEMA PR PRN (22:30)
[2019-08-03] MEDS ORDERED: SENOKOT S TAB PO PRN (22:30)
[2019-08-03] MEDS ORDERED: VANCOMYCIN HCL 1,000 MG, VIAL MATE ADAPTER 1 EACH in D5W 250 ML IV ONE (22:30)
[2019-08-03] MEDS ORDERED: BISACODYL 10 MG SUPP PR PRN (22:30)
[2019-08-03] MEDS ORDERED: MEROPENEM INJ 1 GM in IV 1 EA IV ONE (23:30)
[2019-08-03] MEDS: LATANOPROST 0.005% OPHTH SOLN 2.5 ML OU SCH (23:51)
[2019-08-03] MEDS: CALCIUM CARBONATE 500 MG CHEW U/D PO SCH (23:52)
[2019-08-04] MEDS: RIVAROXABAN 10 MG TAB (XARELTO) PO SCH ×2 (00:30→17:28)
[2019-08-04] MEDS: PRIMIDONE 250 MG TAB PO SCH ×4 (00:30→21:35)
[2019-08-04] MEDS: ATORVASTATIN 20 MG TAB PO SCH ×2 (00:30→21:34)
[2019-08-04] MEDS: NORTRIPTYLINE 10 MG CAP PO SCH ×3 (00:30→21:34)
[2019-08-04] MEDS ORDERED: diphenhydrAMINE INJ 50MG/ML VIAL (J1200) IM STA (01:13)
[2019-08-04 02:00] VITALS: BP 111/55
[2019-08-04 03:05] LABS: BASO % 0.4 % (0.0-1.0); EOS # 0.2 10^3/uL (0.0-0.5); EOS % 3.3 % (0.0-3.0); HEMATOCRIT 29.5 % (36.0-47.0); LYMPH # 1.4 10^3/uL (1.5-5.0); LYMPH % 21.4 % (24.0-44.0); MEAN CORPUSCULAR HEMOGLOBIN 33.2 pg (27.0-33.0); MEAN CORPUSCULAR HGB CONC 31.9 g/dl (32.0-36.5); MEAN CORPUSCULAR VOLUME 104.2 fl (80.0-96.0); MONO # 0.5 10^3/uL (0.0-0.8); MONO % 7.6 % (0.0-5.0); NEUTROPHILS # 4.5 10^3/uL (1.5-8.5); NEUTROPHILS % 66.9 % (36.0-66.0); PLATELET COUNT, AUTOMATED 283 10^3/uL (150-450); RED BLOOD COUNT 2.83 10^6/uL (4.00-5.40); WHITE BLOOD COUNT 6.7 10^3/uL (4.0-10.0)
[2019-08-04 03:09] LABS: HEMOGLOBIN 9.4 g/dl (12.0-15.5)
[2019-08-04 03:25] LABS: BLOOD UREA NITROGEN 22 MG/DL (7-18); CALCIUM LEVEL 8.8 MG/DL (8.8-10.2); CARBON DIOXIDE LEVEL 32 MEQ/L (21-32); CHLORIDE LEVEL 102 MEQ/L (98-107); CREATININE FOR GFR 0.94 MG/DL (0.55-1.30); GLOMERULAR FILTRATION RATE > 60.0 (>32); GLUCOSE, FASTING 110 MG/DL (70-100); MAGNESIUM LEVEL 2.3 MG/DL (1.8-2.4); POTASSIUM SERUM 3.5 MEQ/L (3.5-5.1); SODIUM LEVEL 138 MEQ/L (136-145)
[2019-08-04 04:30] VITALS: BP 140/84
[2019-08-04] MEDS ORDERED: AMIODARONE HCL 150 MG in IV 1 EA IV SCH (05:00)
[2019-08-04] MEDS: LEVOTHYROXINE 100MCG TABLET (0.1MG) PO SCH (05:20)
[2019-08-04 07:12] LABS: VENOUS BASE EXCESS 3.7 (-2.0-2.0); VENOUS HCO3 29.1 MEQ/L (23.0-27.0); VENOUS O2 SATURATION 90.8 % (60.0-80.0); VENOUS PARTIAL PRESSURE CO2 48.1 mmHg (38.0-50.0); VENOUS PARTIAL PRESSURE O2 63.3 mmHg (30.0-50.0); VENOUS PH 7.399 UNITS (7.330-7.430); VENOUS STANDARD HCO3 27.6 MEQ/L; VENOUS TOTAL CO2 30.5 MEQ/L (24.0-28.0)
--- NOTE | 2019-08-04 07:29 | REP ---
PORTABLE CHEST X-RAY: Single view. HISTORY: Altered mental status. COMPARISON STUDY: July 14, 2019. FINDINGS: There is plate-like atelectasis in the left base. Aeration in the left base is improved from the July 14, 2019 prior study. The heart is not enlarged. No new infiltrate is seen. Pleural angles are sharp. The aorta somewhat tortuous. IMPRESSION: Linear plate-like atelectasis left base. Left base aeration is improved compared to the July 14, 2019 prior study. Electronically Signed by Uriel Gilman MD 08/04/2019 10:51 A
[2019-08-04 08:00] VITALS: BP 145/67
[2019-08-04] MEDS ORDERED: ALBUTEROL SULFATE 2.5 MG/0.5 ML INH NEB SOLN INH SCH (08:00)
[2019-08-04] MEDS: TORSEMIDE 20 MG TAB PO SCH (08:19)
[2019-08-04] MEDS: VITAMIN D 1,000 INTERNATIONAL UNITS TABLET PO SCH (08:19)
[2019-08-04] MEDS: SPIRONOLACTONE 25 MG TAB PO SCH (08:19)
[2019-08-04] MEDS: CALCIUM CARBONATE 500 MG CHEW U/D PO SCH ×2 (08:19→21:34)
[2019-08-04] MEDS: FERROUS SULFATE 325MG TAB PO SCH (08:20)
[2019-08-04] MEDS: ASCORBIC ACID 500 MG TAB PO SCH (08:20)
[2019-08-04] MEDS: METOPROLOL SUCC *XL* 25MG TAB (TopROL *XL*) PO SCH (08:20)
[2019-08-04] MEDS: BUDESONIDE 0.5 MG/2 ML INHALATION SUSPENSION INH SCH ×2 (08:36→19:55)
[2019-08-04] MEDS ORDERED: ENTER DRUG NAME HERE (PATIENT'S OWN MED) INH SCH ×2 (09:00)
[2019-08-04] MEDS ORDERED: ENOXAPARIN 40 MG/0.4 ML SYRINGE (J1650) SC SCH (09:00)
[2019-08-04] MEDS ORDERED: CYANOCOBALAMIN 250 MCG TABLET PO SCH (09:00)
[2019-08-04] MEDS ORDERED: B-12100020 PO (09:13)
[2019-08-04] MEDS: CYANOCOBALAMIN 500 MCG TAB PO SCH (10:55)
[2019-08-04] MEDS: sulfaSALAzine 500 MG TABEC PO SCH (10:55)
--- NOTE | 2019-08-04 11:17 | ECGEPIP ---
[facility] Test Date: 2019-08-04 Pat Name: STEFANO ROLDAN Department: Room: [place] [address] Gender: Female Manager Rn: : 1935 Requested By: JAZMIN ODOM Order Number: [id number] Reading MD: Gina Wilder Measurements Intervals [place] Rate: 93 P: 28 [place]: 140 QRS: -22 QRSD: 92 T: 30 QT: 389 QTc: 486 Interpretive Statements SINUS RHYTHM LAE PROBABLE INFERIOR MYOCARDIAL INFARCTION, PROBABLY OLD WITH POSTERIOR EXTENSION RATE SLOWER Incomplete right bundle branch block PULM DIS PATTERN SEPTAL T A ABN PRIOR PROLONGED QTC C/W 08/03/19 Electronically Signed on 08-04-2019 11:17:26 EDT by Gina Wilder
[2019-08-04 12:00] VITALS: BP 120/63
[2019-08-04] MEDS ORDERED: POTASSIUM CHLORIDE 10 MEQ SR TABLET PO ONE (12:15)
[2019-08-04] MEDS: SYMBICORT 160/4.5MCG INHALER 6GM INH SCH ×2 (13:06→19:55)
[2019-08-04] MEDS: TIOTROPIUM INHALER/CAPSULE (SPIRIVA) INH SCH (13:13)
[2019-08-04 15:48] LABS: C REACTIVE PROTEIN QUANTITATIV 5.84 MG/DL (0.00-0.30)
[2019-08-04 16:00] VITALS: BP 158/88
[2019-08-04] MEDS: VORICONAZOLE 200MG TABLET (VFEND) PO SCH ×2 (17:28→21:35)
--- NOTE | 2019-08-04 18:37 | IPNPDOC ---
Date Seen The patient was seen on 08/04/19. Progress Note SUBJECTIVE: Patient was seen and examined at the bedside this morning. She and I spoke about the events surrounding her recent hospitalization in [place]. She reports that she was seen by a towboat engineer who did a full workup and nothing alarming was found. She had imaging done of her right hand from her first and second digit swelling that was attributed to a rheumatoid arthritis flare. Imaging was negative for any pathology. Today, she reports her first and second digit on her right hand are still very painful. She also reports 7 out of 10 right-sided groin pain. She's not had any fevers on this admission. Overnight, the patient reportedly had 40 beats of V. tach which was observed by myself on the [facility] monitor. The patient denied any chest pain, shortness of breath, lightheadedness or dizziness. She was given a one-time dose of amiodarone and this morning she has normal sinus rhythm. Cardiology was consulted. OBJECTIVE PHYSICAL EXAMINATION: VITAL SIGNS: Please see below. GENERAL APPEARANCE: Laying in bed, appears stated age, no acute distress, calm, cooperative HEENT: EOMI, PERRLA, neck is supple with no thyromegaly or lymphadenopathy RESPIRATORY: Scattered rhonchi bilaterally with no other adventitious breath sounds appreciated. Frequent coughing but no sputum production CARDIOVASCULAR: no JVD, RRR, no murmurs/rubs/gallops ABDOMEN: Soft, nontender to palpation in all four quadrants, no masses/organomegaly EXTREMITIES: no clubbing, cyanosis or edema noted LYMPHATICS: There are no enlarged lymph nodes in the femoral, cervical, supraclavicular chains NEUROLOGICAL: No obvious focal deficits PSYCHIATRIC: normal mood/affect Skin: No rashes or ulcers. LABORATORY DATA, IMAGING STUDIES, MICROBIOLOGY: Please see below. Echocardiogram: LEROY 07/16/2019: 1. No vegetations. 2. Normal left ventricle size and regional wall motion and left ventricle (LV) systolic function. 3. Mild aortic valve sclerosis of three-cuspid aortic valve. No aortic regurgitation. 4. Lipomatous hypertrophy of the anterior atrial septum. 5. 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 DVT prophylaxis ordered?: Patient is on Xarelto ASSESSMENT AND PLAN: This is an 84-year-old female with history of rheumatoid arthritis who has had numerous hospitalizations over the past several months for possible pneumonia vs UTI and fevers of unknown origin. She was recently hos pitalized at [facility] in [place] where she underwent full workup for her fevers, including rheumatology consultation, and was found to have positive Aspergillus Galactomannan Antigen. She is currently admitted for fever of 102 after her discharge from [facility] and several falls in the past 48 hours due to weakness and deconditioning. PROBLEMS: 1. Fevers of unknown origin: -Records from [facility] were reviewed and were significant only for elevated ESR at 110, ferritin elevated at 263, CRP elevated at 29. The patient also was found to have positive Aspergillus galactomannan antigen. -Will re-check Aspergillus Galactomannan and fungus smear and culture at this time. I will empirically treat her with voriconazole, 200 mg 3 times a day for 3 days, followed by 200 mg twice a day and typical treatment course runs about 12 weeks. If her Aspergillus antigen comes back negative, this will be stopped. Case discussed with Dr. Vargas, who will see the patient tomorrow -Admission note states there was lower extremity swelling concerning for cellulitis and patient was given Vancomycin, Meropenem and Clindamycin. Physical examination today not demonstrative of cellulitis so these have been stopped. 2. Rheumatoid arthritis with possible current flare in right first and second digit: -Continue Sulfasalazine 3. Asthma with chronic oxygen dependence: -Most recent Chest CT demonstrates bibasilar consolidations with air bronchograms suggesting multifocal pneumonia. CXR on admission significant for plate-like atelectasis in the left base but aeration improved since Jul 14, 2019 study -Continue home inhalers: Pulmicort, Symbicort, Incruse with Albuterol Nebs as needed for SOB 4. Essential Tremors: -Continue Primidone 5. History of recent upper extremity DVT: -Continue Xarelto; Likely superficial thrombophlebitis 6. Chronic CAD s/p PCI: -Continue Lipitor, 7. Dyslipidemia: 8. Congestive heart failure -Continue home meds 9. GALO: -Will use home CPAP 10. Iron deficiency anemia: -Continue Ferrous Sulfate supplementation 11. Vitamin B12 deficiency: -Continue oral replacement 12. Hypothyroidism: -Continue levothyroxine DISPOSITION: Pending clinical improvement. ARU screen in place VS, I&O, 24H, Fishbone Vital Signs/I&O Vital Signs Date Time Temp Pulse Resp B/P (MAP) Pulse Ox O2 Delivery O2 Flow Rate FiO2 08/04/19 12:00 2.0 08/04/19 12:00 98.2 88 17 120/63 (82) 95 Nasal Cannula I&O- Last 24 Hours up to 6 AM 08/04/19 06:00 Intake Total 570 ml Output Total 200 ml Balance 370 ml Laboratory Data 24H LABS Laboratory Tests 2 08/03/19 19:16: Immature Granulocyte % (Auto) 0.3, Neutrophils (%) (Auto) 69.7H, Lymphocytes (%) (Auto) 19.5L, Monocytes (%) (Auto) 6.4H, Eosinophils (%) (Auto) 3.6H, Basophils (%) (Auto) 0.5, Neutrophils # (Auto) 4.1, Lymphocytes # (Auto) 1.2L, Monocytes # (Auto) 0.4, Eosinophils # (Auto) 0.2, Basophils # (Auto) 0.0, Nucleated Red Blood Cells % (auto) 0.0, Anion Gap 5L, Glomerular Filtration Rate 56.1, Osmolality 299, Lactic Acid Level 1.6, Calcium Level 9.1, Total Bilirubin 0.2, Direct Bilirubin < 0.1, Aspartate Amino Transf (AST/SGOT) 20, Alanine Aminotransferase (ALT/SGPT) 8L, Alkaline Phosphatase 67, Total Creatine Kinase 70, Creatine Kinase MB 1.3, Creatine Kinase MB Relative Index 1.86, Troponin I < 0.02, Total Protein 8.4H, Albumin 2.6L, Albumin/Globulin Ratio 0.45L, Thyroid Stimulating Hormone (TSH) 0.737 08/04/19 00:53: Troponin I < 0.02 08/04/19 03:00: Immature Granulocyte % (Auto) 0.4, Neutrophils (%) (Auto) 66.9H, Lymphocytes (%) (Auto) 21.4L, Monocytes (%) (Auto) 7.6H, Eosinophils (%) (Auto) 3.3H, Basophils (%) (Auto) 0.4, Neutrophils # (Auto) 4.5, Lymphocytes # (Auto) 1.4L, Monocytes # (Auto) 0.5, Eosinophils # (Auto) 0.2, Basophils # (Auto) 0.0, Nucleated Red Blood Cells % (auto) 0.0, Anion Gap 4L, Glomerular Filtration Rate > 60.0, Calcium Level 8.8, Magnesium Level 2.3, C-Reactive Protein, Quantitative 5.84H 08/04/19 05:09: Urine Color YELLOW, Urine Appearance CLEAR, Urine pH 6.0, Urine Specific [place] 1.015, Urine Protein NEGATIVE, Urine Glucose (UA) NEGATIVE, Urine Ketones NEGATIVE, Urine Blood NEGATIVE, Urine Nitrite POSITIVEH, Urine Bilirubin NEGATIVE, Urine Urobilinogen 0.2, Urine Leukocyte Esterase TRACEH, Urine WBC (Auto) 11H, Urine RBC (Auto) 3, Urine Hyaline Casts (Auto) 1, Urine Bacteria (Auto) 3+H, Urine Squamous Epithelial Cells 1, Urine Transitional Epithelial Cells <1, Urine Mucus (Auto) SMALL, Urine Sperm (Auto) 08/04/19 07:04: Blood Gas Bicarbonate Standard 27.6, Venous Blood pH 7.399, Venous Blood Partial Pressure CO2 48.1, Venous Blood Partial Pressure O2 63.3H, Venous Blood Total Carbon Dioxide 30.5H, Venous Blood HCO3 29.1H, Venous Blood Oxygen Saturation 90.8H, Venous Blood Base Excess 3.7H, Lactic Acid Level 1.1, Ammonia 10, Troponin I 0.02 08/04/19 15:21: CBC/BMP Laboratory Tests 08/03/19 19:16 08/04/19 03:00 Microbiology Microbiology 08/04/19 Urine Culture, Received Pending 08/04/19 Respiratory Virus Panel (PCR) (MARIE) - Final, Complete 08/03/19 Blood Culture, Received Pending 08/03/19 Blood Culture, Received Pending GME ATTESTATION GME ATTESTATION My faculty preceptor for this patient encounter was physically present during the encounter and was fully available. All aspects of the patient interview, examination, medical decision making process, and medical care plan development were reviewed and approved by the faculty preceptor. The faculty preceptor is aware and concurs with the plan as stated in the body of this note and will attest to such by his/her cosignature. ATTENDING NOTE Patient was seen and examined by me this morning with the residents. Agree with the above assessment and plan BRAEDEN CHAMBERS MD Aug 04, 2019 16:07 SARA LUONG MD Aug 07, 2019 12:52
[2019-08-04 20:00] VITALS: BP 133/64
[2019-08-04] MEDS: LATANOPROST 0.005% OPHTH SOLN 2.5 ML OU SCH (21:35)
[2019-08-05] VITALS (7 sets, daily range): BP systolic 111–137; BP diastolic 56–88
[2019-08-05] MEDS: LEVOTHYROXINE 100MCG TABLET (0.1MG) PO SCH (05:27)
[2019-08-05] MEDS: oxyCODONE 5MG TAB PO PRN (06:56)
[2019-08-05] MEDS: ALBUTEROL SULFATE 2.5 MG/0.5 ML INH NEB SOLN INH PRN (07:31)
[2019-08-05] MEDS: BUDESONIDE 0.5 MG/2 ML INHALATION SUSPENSION INH SCH ×2 (07:31→20:00)
[2019-08-05] MEDS: TIOTROPIUM INHALER/CAPSULE (SPIRIVA) INH SCH (07:31)
[2019-08-05 08:13] LABS: BASO % 0.3 % (0.0-1.0); EOS # 0.3 10^3/uL (0.0-0.5); EOS % 4.8 % (0.0-3.0); HEMATOCRIT 27.7 % (36.0-47.0); HEMOGLOBIN 8.6 g/dl (12.0-15.5); LYMPH # 1.4 10^3/uL (1.5-5.0); LYMPH % 24.6 % (24.0-44.0); MEAN CORPUSCULAR VOLUME 106.1 fl (80.0-96.0); MONO # 0.5 10^3/uL (0.0-0.8); MONO % 8.9 % (0.0-5.0); NEUTROPHILS # 3.6 10^3/uL (1.5-8.5); NEUTROPHILS % 61.1 % (36.0-66.0); PLATELET COUNT, AUTOMATED 274 10^3/uL (150-450); RED BLOOD COUNT 2.61 10^6/uL (4.00-5.40); WHITE BLOOD COUNT 5.9 10^3/uL (4.0-10.0)
[2019-08-05] MEDS: CYANOCOBALAMIN 500 MCG TAB PO SCH (08:39)
[2019-08-05] MEDS: sulfaSALAzine 500 MG TABEC PO SCH (08:39)
[2019-08-05] MEDS: CALCIUM CARBONATE 500 MG CHEW U/D PO SCH ×2 (08:39→20:39)
[2019-08-05] MEDS: VITAMIN D 1,000 INTERNATIONAL UNITS TABLET PO SCH (08:39)
[2019-08-05] MEDS: FERROUS SULFATE 325MG TAB PO SCH (08:40)
[2019-08-05] MEDS: NORTRIPTYLINE 10 MG CAP PO SCH ×2 (08:40→20:39)
[2019-08-05] MEDS: VORICONAZOLE 200MG TABLET (VFEND) PO SCH ×3 (08:40→20:39)
[2019-08-05] MEDS: PRIMIDONE 250 MG TAB PO SCH ×3 (08:40→20:39)
[2019-08-05] MEDS: ASCORBIC ACID 500 MG TAB PO SCH (08:40)
[2019-08-05] MEDS: SPIRONOLACTONE 25 MG TAB PO SCH (08:40)
[2019-08-05] MEDS: TORSEMIDE 20 MG TAB PO SCH (08:40)
[2019-08-05] MEDS: METOPROLOL SUCC *XL* 25MG TAB (TopROL *XL*) PO SCH (08:41)
[2019-08-05] MEDS ORDERED: MOM 30ML SUSPENSION UDC PO SCH (09:00)
[2019-08-05] MEDS ORDERED: MOM 30ML SUSPENSION UDC PO PRN (09:15)
[2019-08-05] MEDS: SYMBICORT 160/4.5MCG INHALER 6GM INH SCH ×2 (10:30→20:43)
--- NOTE | 2019-08-05 13:32 | IPNPDOC ---
Text Note Date of Service The patient was seen on 08/05/19. NOTE Patient was seen and examined at the bedside this morning. No acute over night events . States that she is ready for Rehab and wants to participate in PT to get better. Looks motivated. PHYSICAL EXAMINATION: GENERAL APPEARANCE: Laying in bed, appears stated age, no acute distress, calm, cooperative HEENT: EOMI, PERRLA, neck is supple with no thyromegaly or lymphadenopathy RESPIRATORY: Scattered mild rhonchi bilaterally. Frequent coughing but no sputum production CARDIOVASCULAR: no JVD, RRR, no murmurs/rubs/gallops ABDOMEN: Soft, nontender to palpation in all four quadrants, no masses/organomegaly EXTREMITIES: no clubbing, cyanosis or edema noted LYMPHATICS: There are no enlarged lymph nodes in the femoral, cervical, supraclavicular chains NEUROLOGICAL: No obvious focal deficits PSYCHIATRIC: normal mood/affect Skin: No rashes or ulcers. Labs and vitals reviewed. ASSESSMENT AND PLAN: This is an 84-year-old female with history of rheumatoid arthritis who has had numerous hospitalizations over the past several months for possible pneumonia vs UTI and fevers of unknown origin. She was recently hospitalized at [facility] in [place] where she underwent full workup for her fevers, including rheumatology consultation, and was found to have positive Aspergillus Galactomannan Antigen. She was admitted for fever of 102 after her discharge from [place] [address]. Fevers of unknown origin: Afibrile for 48 hours now. The patient also was found to have positive Aspergillus galactomannan antigen. fungus smear and culture ordered. She has been started empirically on voriconazole on 08/05/19, 200 mg 3 times a day for 3 days, followed by 200 mg twice a day and typical treatment course runs about [address] Vargas, to see the patient. 2. Rheumatoid arthritis with possible current flare in right first and second digit: Continue Sulfasalazine 3. Asthma with chronic oxygen dependence: Most recent Chest CT demonstrates bibasilar consolidations with air bronchograms suggesting multifocal pneumonia. CXR on admission significant for plate-like atelectasis. Continue home inhalers, Pulmicort, Symbicort, Incruse with Albuterol Nebs as needed for SOB 4. Essential Tremors: Continue Primidone 5. History of recent upper extremity DVT: Continue Xarelto; Likely superficial thrombophlebitis 6. Chronic CAD s/p PCI: Continue Lipitor, 7. Dyslipidemia: 8. Congestive heart failure: Continue home meds 9. GALO: Will use home CPAP 10. Iron deficiency anemia: Continue Ferrous Sulfate supplementation 11. Vitamin B12 deficiency: Continue oral replacement 12. Hypothyroidism: Continue levothyroxine ARU screen in place VS,Fishbone, I+O VS, Fishbone, I+O Laboratory Tests 08/05/19 08:00 Vital Signs Date Time Temp Pulse Resp B/P (MAP) Pulse Ox O2 Delivery O2 Flow Rate FiO2 08/05/19 12:00 2.0 08/05/19 12:00 98.4 83 14 128/88 (101) 93 Nasal Cannula I&O- Last 24 Hours up to 6 AM 08/05/19 06:00 Intake Total 1060 ml Output Total 1225 ml Balance -165 ml SARA LUONG MD Aug 05, 2019 13:32
[2019-08-05] MEDS: RIVAROXABAN 10 MG TAB (XARELTO) PO SCH (17:16)
[2019-08-05] MEDS: ACETAMINOPHEN TAB 650MG DOSE (2X325MG) PO PRN (17:20)
[2019-08-05] MEDS: ATORVASTATIN 20 MG TAB PO SCH (20:39)
[2019-08-05] MEDS: LATANOPROST 0.005% OPHTH SOLN 2.5 ML OU SCH (20:39)
[2019-08-06 02:00] VITALS: BP 123/71
[2019-08-06] MEDS: LEVOTHYROXINE 100MCG TABLET (0.1MG) PO SCH (05:39)
[2019-08-06 06:00] VITALS: BP 126/74
[2019-08-06 06:10] LABS: HEMATOCRIT 26.1 % (36.0-47.0); HEMOGLOBIN 8.1 g/dl (12.0-15.5); MEAN CORPUSCULAR HEMOGLOBIN 32.7 pg (27.0-33.0); MEAN CORPUSCULAR VOLUME 105.2 fl (80.0-96.0); PLATELET COUNT, AUTOMATED 275 10^3/uL (150-450); RED BLOOD COUNT 2.48 10^6/uL (4.00-5.40); WHITE BLOOD COUNT 5.5 10^3/uL (4.0-10.0)
[2019-08-06 06:30] LABS: ERYTHROCYTE SEDIMENTATION RATE 126 mm/hr (0-30)
[2019-08-06] MEDS: TIOTROPIUM INHALER/CAPSULE (SPIRIVA) INH SCH ×2 (08:00→08:33)
[2019-08-06] MEDS: BUDESONIDE 0.5 MG/2 ML INHALATION SUSPENSION INH SCH ×2 (08:00→18:26)
[2019-08-06] MEDS: SYMBICORT 160/4.5MCG INHALER 6GM INH SCH ×2 (08:23→18:26)
[2019-08-06] MEDS: sulfaSALAzine 500 MG TABEC PO SCH (09:42)
[2019-08-06] MEDS: CALCIUM CARBONATE 500 MG CHEW U/D PO SCH ×2 (09:43→22:13)
[2019-08-06] MEDS: ASCORBIC ACID 500 MG TAB PO SCH (09:43)
[2019-08-06] MEDS: NORTRIPTYLINE 10 MG CAP PO SCH ×2 (09:43→22:14)
[2019-08-06] MEDS: VITAMIN D 1,000 INTERNATIONAL UNITS TABLET PO SCH (09:43)
[2019-08-06] MEDS: METOPROLOL SUCC *XL* 25MG TAB (TopROL *XL*) PO SCH (09:45)
[2019-08-06] MEDS: SPIRONOLACTONE 25 MG TAB PO SCH (09:45)
[2019-08-06] MEDS: PRIMIDONE 250 MG TAB PO SCH ×3 (09:46→22:14)
[2019-08-06] MEDS: TORSEMIDE 20 MG TAB PO SCH (09:46)
[2019-08-06] MEDS: VORICONAZOLE 200MG TABLET (VFEND) PO SCH ×3 (09:46→22:14)
[2019-08-06] MEDS: FERROUS SULFATE 325MG TAB PO SCH (09:46)
[2019-08-06] MEDS: CYANOCOBALAMIN 500 MCG TAB PO SCH (09:46)
[2019-08-06 10:00] VITALS: BP 122/77
--- NOTE | 2019-08-06 10:11 | IPN ---
DATE: 08/06/2019 Reason of consultation for us was abnormal telemetry read. We were consulted by the night hospitalist for telemetry read that had multiple beats of ventricular tachycardia. When reviewed the telemetry to see if the patient had true ventricular tachycardia versus atrial flutter, rapid ventricular response (RVR), we reviewed it and it is consistent with actually artifact. The patient does have an underlying tremor and the ventricular rate is consistent within the artifacts. I believe the wide rhythm that we are seeing is the fact that she has a tremor and it is not true abnormal cardiac beats. Therefore, our recommendation is the patient does not have ventricular tachycardia. Addendum MD Niels: After reviewing telemetry strips from suspected episode of VT we determined that it represented artifact, most likely from tremor. The underlying rhythm is sinus and there has been no change in rate during this episode. EBONI
--- NOTE | 2019-08-06 10:52 | CR ---
DATE OF CONSULTATION: 08/05/2019 I was asked to consult by the hospitalist for followup on abnormal chest CT with pulmonary infiltrates and a positive Aspergillus galactomannan. HISTORY OF PRESENT ILLNESS Mrs. Ball is an 84-year-old female well known to me from multiple previous admissions who has been hospitalized at least three times in the past 2 months with recurrent fevers of unknown origin and treated for urinary tract infection and in spite of being on broad-spectrum antibiotics, the patient would develop recurrent fevers. She had bilobar pneumonias, as well and the last hospitalization was on 07/14 to 07/22/2019. She received IV Zosyn. Her daughter requested she gets transferred to [facility] in [place] where she received care from 07/22 and discharged on 08/02/2019. During the hospitalization, she had a consultation by rheumatology who recommended increasing her sulfasalazine dose to a 1000 mg twice a day. She was seen by pulmonary who did a fungal workup and that [id number] was positive at more than 500 and Aspergillus galactomannan was sent but was still pending upon her discharge. She was not treated with antibiotics while she was there. Other workup included hepatitis A, B and C were negative, ESR was 110, CRP was 29. All rheumatologic blood work, including rheumatoid factor CCP double-stranded DNA were negative. Interferon gamma release assay for TB was negative. Right hand x-ray showed severe osteoarthritis. Renal ultrasound showed left perinephric fluid. MRI of the abdomen with and without contrast showed a right kidney cyst measuring 1.8 x 1.6 cm. No lymphadenopathy. She had gallstones. She had no diverticulosis that had mass effect on the pancreas. CT chest showed bilobar consolidation and some pulmonary nodules. The patient went home on August 01 and was home for 24 hours. She had multiple falls and came back to the hospital complaining of a fever. There is no documented fever in the past 3 days. The patient remains well and healthy. She had a run of V tach and was placed in progressive care unit (PCU). She has a mild cough productive of whitish phlegm. No hemoptysis. No chest pain. She has chronic shortness of breath, which is unchanged. 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 PAST SURGICAL HISTORY: Hysterectomy, tonsillectomy, colostomy for diverticular abscess and a questionable brain bleed requiring intervention. SOCIAL HISTORY: She was living at home until May of this year when she has progressively gotten worse. She does not smoke or drink. Her daughter is a registered nurse in [place] who is her caregiver. ALLERGIES: Multiple, including NSAIDS, CEPHALOSPORINS, CIPROFLOXACIN, IBUPROFEN, IODINE, MORPHINE, TETRACYCLINE, VANCOMYCIN. The patient received a dose of IV vancomycin this hospitalization without any untoward effect. This allergy needs to be removed. She also has tolerated Zosyn. LABORATORY DATA: Blood culture no growth after 48 hours. Respiratory panel is negative. Urine culture is pending. Fungal smear and culture are pending. MEDICATIONS: - magnesium oxide as needed - torsemide 40 mg every other day - voriconazole 200 mg by mouth three times a day - potassium chloride 40 mEq as needed - albuterol inhalation twice a day as needed - Lovenox 40 mg subcutaneous daily - ascorbic acid 500 mg daily - ferrous sulfate 325 mg daily - metoprolol 25 mg daily - Aldactone 25 mg daily - torsemide 60 mg Sunday, Sunday, Sunday - vitamin D 2000 units daily - vitamin B12 100 mcg daily - sulfasalazine 1000 mg by mouth twice a day - budesonide/ formoterol two inhalations twice a day - Pulmicort 0.5 inhaled twice a day - nortriptyline 10 mg by mouth three times a day - primidone 250 mg three times a day LABORATORY DATA: White count 5.9, hemoglobin 8.6, hematocrit 27.7 with a drop in her hematocrit from 38.6 on admission to 27.7, platelets 274. Sodium 138, potassium 3.5, chloride 102, bicarbonate 32, BUN 22, creatinine 0.94, glucose 110, lactic acid 1.1, calcium 8.8, magnesium 2.3, ammonia 10, troponin 0.02, CRP 5.84. Chest x-ray on 08/03/2019 showed plate-like atelectasis in left base with improved aeration compared to 07/14/2019. PHYSICAL EXAMINATION She is a pleasant healthy looking female in no acute distress on chronic oxygen, sitting in a wheelchair, for the most part is able to give a history, remembers me by name but states she never went home in between two hospitalizations. Temperature is 97.9, pulse 87, respirations 17, blood pressure 124/72, oxygen sat 97% on 2 liters nasal cannula. Heart: Normal S1, S2. No murmurs, rubs or gallops appreciated. Lungs: Crackles both way up fpc. No wheezes or rhonchi. Abdomen: Soft, obese, nontender. No organomegaly. Extremities: Trace edema. No clubbing or cyanosis. No cellulitis. Neurologic exam: Motor exam is normal. Alert and oriented times three. Musculoskeletal exam: Swollen right index finger, especially at the proximal interphalangeal joint and proximal phalanx. IMPRESSION: This is a 89-year-old female with 2 months of frequent hospitalization with fever of unknown origin and treated for pneumonia with broad-spectrum antibiotic, including carbapenems and Zosyn, treated for recurrent urinary tract infection. In spite of broad-spectrum antibiotic, the patient would have recurrent fever. Of note, hospitalization also she had a high doses of steroids, which could have masked her fevers. Part of the workup in [facility], she had two tests that were positive for fungal antigens, including Aspergillus galactomannan and [id number]. The patient has been started on voriconazole yesterday and has tolerated well. PLAN: Continue voriconazole loading 200 mg by mouth three times a day for 2 days and then twice a day. Obtain a trough level in a week to monitor drug levels. Monitor her last CBC, CMP, sed rate, CRP every 1-2 weeks. The patient will need to be treated for total of at least 3-6 months. We will monitor chest CT. Avoid use of steroids if possible. Increase her dose of sulfasalazine to 1000 mg by mouth twice a day as recommended by rheumatology. The patient needs to follow up in my office in 2-3 weeks. The plan is for her to go to rehabilitation.
[2019-08-06 14:00] VITALS: BP 124/78
[2019-08-06] MEDS: RIVAROXABAN 10 MG TAB (XARELTO) PO SCH (17:25)
--- NOTE | 2019-08-06 17:47 | IPNPDOC ---
Text Note Date of Service The patient was seen on 08/06/19. NOTE Patient was seen and examined at the bedside this morning. No acute over night events . PHYSICAL EXAMINATION: GENERAL APPEARANCE: Laying in bed, appears stated age, no acute distress, calm, cooperative HEENT: EOMI, PERRLA, neck is supple with no thyromegaly or lymphadenopathy RESPIRATORY: Scattered mild rhonchi bilaterally. Frequent coughing but no sputum production CARDIOVASCULAR: no JVD, RRR, no murmurs/rubs/gallops ABDOMEN: Soft, nontender to palpation in all four quadrants, no masses/organomegaly EXTREMITIES: no clubbing, cyanosis or edema noted LYMPHATICS: There are no enlarged lymph nodes in the femoral, cervical, supraclavicular chains NEUROLOGICAL: No obvious focal deficits PSYCHIATRIC: normal mood/affect Skin: No rashes or ulcers. Labs and vitals reviewed. ASSESSMENT AND PLAN: This is an 84-year-old female with history of rheumatoid arthritis who has had numerous hospitalizations over the past several months for possible pneumonia vs UTI and fevers of unknown origin. She was recently hospitalized at [facility] in [place] where she underwent full workup for her fevers, including rheumatology consultation, and was found to have positive Aspergillus Galactomannan Antigen with high beta D glucan and currently has been treated for possible Aspergillus ammonia 1. Fevers of unknown origin: Afibrile for 72 hours now. The patient also was found to have positive Aspergillus galactomannan antigen along with high beta D glucan. fungus smear and culture ordered. She has been started empirically on voriconazole on 08/05/19, 200 mg 3 times a day for 3 days, followed by 200 mg twice a day and typical treatment course runs about [address] Vargas, to see the patient as outpatient. 2. Rheumatoid arthritis with possible current flare in right first and second digit: Continue Sulfasalazine 3. Asthma with chronic oxygen dependence: Most recent Chest CT demonstrates bibasilar consolidations with air bronchograms suggesting multifocal pneumonia. CXR on admission significant for plate-like atelectasis. Continue home inhalers, Pulmicort, Symbicort, Incruse with Albuterol Nebs as needed for SOB 4. Essential Tremors: Continue Primidone 5. History of recent upper extremity DVT: Continue Xarelto; Likely superficial thrombophlebitis 6. Chronic CAD s/p PCI: Continue Lipitor, 7. Dyslipidemia: 8. Congestive heart failure: Continue home meds 9. GALO: Will use home CPAP 10. Iron deficiency anemia: Continue Ferrous Sulfate supplementation 11. Vitamin B12 deficiency: Continue oral replacement 12. Hypothyroidism: Continue levothyroxine As per PT, OT. The patient does not require rehabilitation. Will simply reassess and make a final decision regarding discharge. VS,Fishbone, I+O VS, Fishbone, I+O Laboratory Tests 08/06/19 05:53 Vital Signs Date Time Temp Pulse Resp B/P (MAP) Pulse Ox O2 Delivery O2 Flow Rate FiO2 08/06/19 14:00 97.8 87 17 124/78 (93) 99 Nasal Cannula 2.0 I&O- Last 24 Hours up to 6 AM 08/06/19 05:59 Intake Total 1498 ml Output Total 825 ml Balance 673 ml SARA LUONG MD Aug 06, 2019 17:47
[2019-08-06] MEDS: ALBUTEROL SULFATE 2.5 MG/0.5 ML INH NEB SOLN INH PRN (18:26)
[2019-08-06 22:00] VITALS: BP 115/66
[2019-08-06] MEDS: ATORVASTATIN 20 MG TAB PO SCH (22:13)
[2019-08-06] MEDS: LATANOPROST 0.005% OPHTH SOLN 2.5 ML OU SCH (22:14)
[2019-08-07 02:00] VITALS: BP 118/72
[2019-08-07] MEDS: oxyCODONE 5MG TAB PO PRN (05:27)
[2019-08-07] MEDS: LEVOTHYROXINE 100MCG TABLET (0.1MG) PO SCH (05:27)
[2019-08-07 06:00] VITALS: BP 136/78
[2019-08-07 08:00] VITALS: BP 135/73
[2019-08-07] MEDS: BUDESONIDE 0.5 MG/2 ML INHALATION SUSPENSION INH SCH ×2 (08:00→18:16)
[2019-08-07] MEDS: TIOTROPIUM INHALER/CAPSULE (SPIRIVA) INH SCH (08:20)
[2019-08-07] MEDS: SYMBICORT 160/4.5MCG INHALER 6GM INH SCH ×2 (08:21→18:18)
[2019-08-07] MEDS: CALCIUM CARBONATE 500 MG CHEW U/D PO SCH ×2 (09:02→20:00)
[2019-08-07] MEDS: CYANOCOBALAMIN 500 MCG TAB PO SCH (09:02)
[2019-08-07] MEDS: SPIRONOLACTONE 25 MG TAB PO SCH (09:02)
[2019-08-07] MEDS: VORICONAZOLE 200MG TABLET (VFEND) PO SCH ×3 (09:02→20:00)
[2019-08-07] MEDS: ASCORBIC ACID 500 MG TAB PO SCH (09:03)
[2019-08-07] MEDS: sulfaSALAzine 500 MG TABEC PO SCH (09:03)
[2019-08-07] MEDS: TORSEMIDE 20 MG TAB PO SCH (09:03)
[2019-08-07] MEDS: NORTRIPTYLINE 10 MG CAP PO SCH ×2 (09:04→19:59)
[2019-08-07] MEDS: VITAMIN D 1,000 INTERNATIONAL UNITS TABLET PO SCH (09:04)
[2019-08-07] MEDS: FERROUS SULFATE 325MG TAB PO SCH (09:04)
[2019-08-07] MEDS: PRIMIDONE 250 MG TAB PO SCH ×3 (09:04→19:59)
[2019-08-07] MEDS: METOPROLOL SUCC *XL* 25MG TAB (TopROL *XL*) PO SCH (09:05)
[2019-08-07 14:00] VITALS: BP 128/72
[2019-08-07] MEDS: ATORVASTATIN 20 MG TAB PO SCH (19:59)
[2019-08-07] MEDS: LATANOPROST 0.005% OPHTH SOLN 2.5 ML OU SCH (20:01)
--- NOTE | 2019-08-07 21:07 | IPN ---
DATE: 08/07/2019 Mrs. Ball is doing well. She has no complaints except her two fingers being swollen and painful in her right hand. She also states that she would like to go to rehab to get stronger. She is not ready to go home. She does have a cough. Shortness of breath is at baseline. On physical exam, temperature is 98.3, pulse 89, respirations 14, blood pressure 128/72, oxygen saturation (O2 sat) 94% on 2 liters nasal cannula. Heart: Normal S1, S2. No murmurs. Lungs: Few crackles at the bases. Abdomen: Obese, soft, nontender. Extremities: No edema. Right second and third finger is slightly swollen, erythematous. She has good range of motion. LABORATORY DATA: White count 5.5, hemoglobin 8.1, hematocrit 26.1, platelets 275. ESR 126, CRP 2.82, ammonia level 10. Urine culture was positive for Klebsiella pneumoniae, 15,000 colonies. The patient does not report any urinary symptoms. IMPRESSION: 1. 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 The patient has tolerated voriconazole 200 mg by mouth three times a day, which has been started on 08/04/2019 without any side effects. The patient will be treated for 6-12 weeks and follow-up chest CT in 6 weeks. Her dose of voriconazole will be decreased to 200 mg by mouth twice a day. 2. Rheumatoid arthritis. Patient on sulfasalazine 1000 mg by mouth daily. The recommendation from [facility] was to increase it to twice a day. She has two swollen fingers, second and third, of right hand. 3. Asymptomatic bacteruria. Please do not treat the Klebsiella in the urine; she only has 11 white cells and does not have symptoms currently. PLAN: Continue Vfend 200 mg by mouth twice a day. Monitor CBC, CRP, sed rate. Followup chest CT in 6 weeks. Labs that are pending include fungal smear and culture, Aspergillus galactomannan and beta-1-3 Glucan.
[2019-08-07 22:00] VITALS: BP 121/76
[2019-08-08 02:00] VITALS: BP 118/72
[2019-08-08] MEDS: ACETAMINOPHEN TAB 650MG DOSE (2X325MG) PO PRN (02:07)
[2019-08-08] MEDS: LEVOTHYROXINE 100MCG TABLET (0.1MG) PO SCH (05:31)
[2019-08-08 06:00] VITALS: BP 120/71
[2019-08-08] MEDS: oxyCODONE 5MG TAB PO PRN (07:10)
[2019-08-08] MEDS: BUDESONIDE 0.5 MG/2 ML INHALATION SUSPENSION INH SCH ×2 (08:00→18:36)
[2019-08-08] MEDS: TIOTROPIUM INHALER/CAPSULE (SPIRIVA) INH SCH (08:22)
[2019-08-08] MEDS: SYMBICORT 160/4.5MCG INHALER 6GM INH SCH ×2 (08:22→18:36)
[2019-08-08] MEDS: NORTRIPTYLINE 10 MG CAP PO SCH ×2 (09:26→21:17)
[2019-08-08] MEDS: VORICONAZOLE 200MG TABLET (VFEND) PO SCH ×2 (09:26→21:17)
[2019-08-08] MEDS: sulfaSALAzine 500 MG TABEC PO SCH ×2 (09:27→21:17)
[2019-08-08] MEDS: VITAMIN D 1,000 INTERNATIONAL UNITS TABLET PO SCH (09:27)
[2019-08-08] MEDS: CALCIUM CARBONATE 500 MG CHEW U/D PO SCH ×2 (09:28→21:17)
[2019-08-08] MEDS: FERROUS SULFATE 325MG TAB PO SCH (09:28)
[2019-08-08] MEDS: SPIRONOLACTONE 25 MG TAB PO SCH (09:28)
[2019-08-08] MEDS: TORSEMIDE 20 MG TAB PO SCH (09:28)
[2019-08-08] MEDS: PRIMIDONE 250 MG TAB PO SCH ×3 (09:28→21:17)
[2019-08-08] MEDS: CYANOCOBALAMIN 500 MCG TAB PO SCH (09:28)
[2019-08-08] MEDS: METOPROLOL SUCC *XL* 25MG TAB (TopROL *XL*) PO SCH (09:29)
[2019-08-08] MEDS: ASCORBIC ACID 500 MG TAB PO SCH (09:29)
[2019-08-08 10:00] VITALS: BP 119/69
[2019-08-08 10:22] LABS: BASO % 0.3 % (0.0-1.0); EOS # 0.3 10^3/uL (0.0-0.5); EOS % 4.5 % (0.0-3.0); HEMATOCRIT 29.6 % (36.0-47.0); HEMOGLOBIN 9.2 g/dl (12.0-15.5); LYMPH # 1.4 10^3/uL (1.5-5.0); LYMPH % 23.2 % (24.0-44.0); MEAN CORPUSCULAR HEMOGLOBIN 32.9 pg (27.0-33.0); MEAN CORPUSCULAR HGB CONC 31.1 g/dl (32.0-36.5); MEAN CORPUSCULAR VOLUME 105.7 fl (80.0-96.0); MONO # 0.5 10^3/uL (0.0-0.8); MONO % 8.6 % (0.0-5.0); NEUTROPHILS # 3.8 10^3/uL (1.5-8.5); NEUTROPHILS % 63.1 % (36.0-66.0); PLATELET COUNT, AUTOMATED 271 10^3/uL (150-450)
--- NOTE | 2019-08-08 11:08 | IPNPDOC ---
Text Note Date of Service The patient was seen on 08/07/19. NOTE Patient was seen and examined at the bedside this morning. No acute over night events . PHYSICAL EXAMINATION: GENERAL APPEARANCE: Laying in bed, appears stated age, no acute distress, calm, cooperative HEENT: EOMI, PERRLA, neck is supple with no thyromegaly or lymphadenopathy RESPIRATORY: Scattered mild rhonchi bilaterally. Frequent coughing but no sputum production CARDIOVASCULAR: no JVD, RRR, no murmurs/rubs/gallops ABDOMEN: Soft, nontender to palpation in all four quadrants, no masses/organomegaly EXTREMITIES: no clubbing, cyanosis or edema noted LYMPHATICS: There are no enlarged lymph nodes in the femoral, cervical, supraclavicular chains NEUROLOGICAL: No obvious focal deficits PSYCHIATRIC: normal mood/affect Skin: No rashes or ulcers. Labs and vitals reviewed. ASSESSMENT AND PLAN: This is an 84-year-old female with history of rheumatoid arthritis who has had numerous hospitalizations over the past several months for possible pneumonia vs UTI and fevers of unknown origin. She was recently hospitalized at [facility] in [place] where she underwent full workup for her fevers, including rheumatology consultation, and was found to have positive Aspergillus Galactomannan Antigen with high beta D glucan and currently has been treated for possible Aspergillus ammonia 1. Fevers of unknown origin: Afibrile for 72 hours now. The patient also was found to have positive Aspergillus galactomannan antigen along with high beta D glucan. fungus smear and culture ordered. She has been started empirically on voriconazole on 08/05/19, 200 mg 3 times a day for 3 days, followed by 200 mg twice a day and typical treatment course runs about [address] Vargas, to see the patient as outpatient. 2. Rheumatoid arthritis with possible current flare in right first and second digit: Continue Sulfasalazine 3. Asthma with chronic oxygen dependence: Most recent Chest CT demonstrates bibasilar consolidations with air bronchograms suggesting multifocal pneumonia. CXR on admission significant for plate-like atelectasis. Continue home inhalers, Pulmicort, Symbicort, Incruse with Albuterol Nebs as needed for SOB 4. Essential Tremors: Continue Primidone 5. History of recent upper extremity DVT: Continue Xarelto; Likely superficial thrombophlebitis 6. Chronic CAD s/p PCI: Continue Lipitor, 7. Dyslipidemia: 8. Congestive heart failure: Continue home meds 9. GALO: Will use home CPAP 10. Iron deficiency anemia: Continue Ferrous Sulfate supplementation 11. Vitamin B12 deficiency: Continue oral replacement 12. Hypothyroidism: Continue levothyroxine As per PT, OT. The patient does not require rehabilitation. Will reassess and make a final decision regarding discharge. VS,Fishbone, I+O VS, Fishbone, I+O Laboratory Tests 08/08/19 10:09 Vital Signs Date Time Temp Pulse Resp B/P (MAP) Pulse Ox O2 Delivery O2 Flow Rate FiO2 08/08/19 09:29 88 117/69 08/08/19 07:40 98.6 16 Nasal Cannula 2.0 08/08/19 06:00 97 I&O- Last 24 Hours up to 6 AM 08/08/19 06:00 Intake Total 930 ml Balance 930 ml SARA LUONG MD Aug 08, 2019 11:08
--- NOTE | 2019-08-08 11:13 | IPNPDOC ---
Text Note Date of Service The patient was seen on 08/08/19. NOTE Patient was seen and examined at the bedside this morning. No acute over night events . Concerned about why she is not on any antibiotics for her UTI. Explained in detail that this is a colonization and does not need to be treated. PHYSICAL EXAMINATION: GENERAL APPEARANCE: Laying in bed, appears stated age, no acute distress, calm, cooperative HEENT: EOMI, PERRLA, neck is supple with no thyromegaly or lymphadenopathy RESPIRATORY: Scattered mild rhonchi bilaterally. Frequent coughing but no sputum production CARDIOVASCULAR: no JVD, RRR, no murmurs/rubs/gallops ABDOMEN: Soft, nontender to palpation in all four quadrants, no masses/organomegaly EXTREMITIES: no clubbing, cyanosis or edema noted LYMPHATICS: There are no enlarged lymph nodes in the femoral, cervical, supr aclavicular chains NEUROLOGICAL: No obvious focal deficits PSYCHIATRIC: normal mood/affect Skin: No rashes or ulcers. Labs and vitals reviewed. ASSESSMENT AND PLAN: This is an 84-year-old female with history of rheumatoid arthritis who has had numerous hospitalizations over the past several months for possible pneumonia vs UTI and fevers of unknown origin. She was recently hospitalized at [facility] in [place] where she underwent full workup for her fevers, including rheumatology consultation, and was found to have positive Aspergillus Galactomannan Antigen with high beta D glucan and currently has been treated for possible Aspergillus ammonia with voriconazole on 08/05/19, 200 mg 2 times a day now. The patient has been a difficult placement. PT, OT has been recommending rehabilitation and refills have been sent to 40 different facilities out of which 29 have denied her. Still awaiting other facilities. She does not want to go home and her daughter is involved in her care also wants her to go to the rehabilitation. 1. Fevers of unknown origin: Afibrile for more than 72 hours now. The patient also was found to have positive Aspergillus galactomannan antigen along with high beta D glucan. fungus smear and culture ordered. She has been started on voriconazole on 08/05/19, 200 mg twice a day and typical treatment course runs about [address] Vargas, to see the patient as outpatient. Repeat CAT scan as outpatient 2. Rheumatoid arthritis : Continue Sulfasalazine 3. Asthma with chronic oxygen dependence: Most recent Chest CT demonstrates bibasilar consolidations with air bronchograms suggesting multifocal pneumonia with some chronic changes but it was present on the previous CAT scan as well. CXR on admission significant for plate-like atelectasis. Continue home inhalers, Pulmicort, Symbicort, Incruse with Albuterol Nebs as needed for SOB 4. Essential Tremors: Continue Primidone 5. History of recent upper extremity DVT: Was related to superficial throm bophlebitis due to superficial line. Xarelto been discontinued and the patient has been given all the information regarding that 6. Chronic CAD s/p PCI: Continue Lipitor, 7. Dyslipidemia: Continue Lipitor 9. GALO: Will use home CPAP 10. Iron deficiency anemia: Continue Ferrous Sulfate supplementation 11. Vitamin B12 deficiency: Continue oral replacement 12. Hypothyroidism: Continue levothyroxine Continue following with the correctional casework specialist regarding the discharge disposition Disposition. Likely subacute rehabilitation. If she is accepted. If not, I have told her that she probably might need to go home VS,Juve, I+O VS, Juve, I+O Laboratory Tests 08/08/19 10:09 Vital Signs Date Time Temp Pulse Resp B/P (MAP) Pulse Ox O2 Delivery O2 Flow Rate FiO2 08/08/19 09:29 88 117/69 08/08/19 07:40 98.6 16 Nasal Cannula 2.0 08/08/19 06:00 97 I&O- Last 24 Hours up to 6 AM 08/08/19 06:00 Intake Total 930 ml Balance 930 ml SARA LUONG MD Aug 08, 2019 11:13
[2019-08-08 14:00] VITALS: BP 120/84
[2019-08-08] MEDS: ATORVASTATIN 20 MG TAB PO SCH (21:17)
[2019-08-08] MEDS: LATANOPROST 0.005% OPHTH SOLN 2.5 ML OU SCH (21:18)
[2019-08-08 22:00] VITALS: BP 121/77
--- NOTE | 2019-08-08 23:39 | IPN ---
DATE: 08/08/2019 Bonnie seems to doing very well. She is to go home with [facility], LABS ESR 126. Sodium 138, potassium 3.5, chloride 102, bicarbonate 32, BUN 22, creatinine 0.94, glucose 110, lactic acid 1.1, calcium 8.8, magnesium 2.3, ammonia 10, CRP 2.82 down from 5.84. Aspergillus galactomannan done on 08/04/2019 was 0.07 which is negative, beta 13-Glucan is pending still from 07/22 and 08/05. I did call the lab and asked them to call [facility] to see why the lab done from 07/22 is still pending. Urine culture had Klebsiella pneumoniae, 15,000 colonies with a urinalysis that only had 11 white cells and 3 red cells. On physical exam, temperature is 98, pulse 82, respirations 19, blood pressure 120/84, oxygen saturation (O2 sat) 96% on two liters nasal cannula. Heart: Normal S1, S2, no murmurs. Lungs: Few crackles at the bases. Abdomen: Obese, soft, nontender. Extremities: Trace ankle edema bilaterally. Index finger and middle finger are slightly swollen, but she has a good range of motion. They have decreased in size. Slightly tender to touch. IMPRESSION: 1.Recurrent fevers of unknown origin. Workup at [facility] showed a positive Aspergillus galactomannan and beta 1-3 Glucan but our Aspergillus test was negative on 08/04/2019. With abnormal chest CT, the patient has been started on voriconazole; she is currently day #4. We started therapy on 08/04/2019. Will obtain voriconazole trough level on Sunday. 2. Rheumatoid arthritis with swollen first and second fingers. The patient's dose of sulfasalazine was supposed to be a gram by mouth twice a day, which has been adjusted today. 3. Asymptomatic bacteruria. The patient has only 15,000 Klebsiella in her urine with a benign UA and no symptoms suggestive of infection. The patient was advised that not every positive urine culture needs to be treated as that will increase her risk of multidrug resistant pathogen and Clostridium (C) difficile colitis. PLAN: Continue voriconazole at 200 mg by mouth twice a day. Obtain voriconazole level on Sunday. The patient will eventually need an eye exam while on voriconazole to monitor for side effects. I have placed a call to the dance hall host/hostess who was working her up at [facility], Dr. Malik Mendez, at [phone] and left him a message to discuss the case, especially that the Aspergillus galactomannan that was done at [facility] was negative. EDGARDOD
[2019-08-09] MEDS: oxyCODONE 5MG TAB PO PRN (04:36)
[2019-08-09] MEDS: LEVOTHYROXINE 100MCG TABLET (0.1MG) PO SCH (05:45)
[2019-08-09 06:00] VITALS: BP 115/70
[2019-08-09] MEDS: BUDESONIDE 0.5 MG/2 ML INHALATION SUSPENSION INH SCH ×2 (08:00→20:00)
[2019-08-09] MEDS: TIOTROPIUM INHALER/CAPSULE (SPIRIVA) INH SCH (08:50)
[2019-08-09] MEDS: SYMBICORT 160/4.5MCG INHALER 6GM INH SCH ×2 (08:50→18:30)
[2019-08-09] MEDS: TORSEMIDE 20 MG TAB PO SCH (09:54)
[2019-08-09] MEDS: FERROUS SULFATE 325MG TAB PO SCH (09:54)
[2019-08-09] MEDS: VORICONAZOLE 200MG TABLET (VFEND) PO SCH ×2 (09:54→21:23)
[2019-08-09] MEDS: SPIRONOLACTONE 25 MG TAB PO SCH (09:54)
[2019-08-09] MEDS: CYANOCOBALAMIN 500 MCG TAB PO SCH (09:54)
[2019-08-09] MEDS: ASCORBIC ACID 500 MG TAB PO SCH (09:55)
[2019-08-09] MEDS: NORTRIPTYLINE 10 MG CAP PO SCH ×2 (09:55→21:23)
[2019-08-09] MEDS: VITAMIN D 1,000 INTERNATIONAL UNITS TABLET PO SCH (09:55)
[2019-08-09] MEDS: PRIMIDONE 250 MG TAB PO SCH ×3 (09:55→21:23)
[2019-08-09] MEDS: CALCIUM CARBONATE 500 MG CHEW U/D PO SCH ×2 (09:55→21:22)
[2019-08-09] MEDS: sulfaSALAzine 500 MG TABEC PO SCH ×2 (09:55→21:22)
[2019-08-09] MEDS: METOPROLOL SUCC *XL* 25MG TAB (TopROL *XL*) PO SCH (09:57)
[2019-08-09 10:00] VITALS: BP 133/70
[2019-08-09 14:00] VITALS: BP 112/62
--- NOTE | 2019-08-09 15:20 | IPNPDOC ---
Date Seen The patient was seen on 08/09/19. Progress Note Patient was seen and examined at the bedside this morning. No acute over night events . . She is concerned about going home and would like to be considered for rehabilitation as she feels very weak and feels as though if she goes home she will fall again. PHYSICAL EXAMINATION: GENERAL APPEARANCE: Laying in bed, appears stated age, no acute distress, calm, cooperative HEENT: EOMI, PERRLA, neck is supple with no thyromegaly or lymphadenopathy RESPIRATORY: Scattered wheezes bilaterally. Frequent coughing but no sputum production CARDIOVASCULAR: no JVD, RRR, no murmurs/rubs/gallops ABDOMEN: Soft, nontender to palpation in all four quadrants, no masses/organom egaly EXTREMITIES: no clubbing, cyanosis or edema noted LYMPHATICS: There are no enlarged lymph nodes in the femoral, cervical, supraclavicular chains NEUROLOGICAL: No obvious focal deficits PSYCHIATRIC: normal mood/affect Skin: No rashes or ulcers. Labs and vitals reviewed. ASSESSMENT AND PLAN: This is an 84-year-old female with history of rheumatoid arthritis who has had numerous hospitalizations over the past several months for possible pneumonia vs UTI and fevers of unknown origin. She was recently h ospitalized at [facility] in [place] where she underwent full workup for her fevers, including rheumatology consultation, and was found to have positive Aspergillus Galactomannan Antigen with high beta D glucan and currently has been treated for possible Aspergillus ammonia with voriconazole on 08/05/19, 200 mg 2 times a day now. The patient has been a difficult placement. PT, OT has been recommending rehabilitation and refills have been sent to 40 different facilities out of which 29 have denied her. Still awaiting other facilities. She does not want to go home and her daughter is involved in her care also wants her to go to the rehabilitation. 1. Fevers of unknown origin: Afibrile for more than 72 hours now. The patient also was found to have positive Aspergillus galactomannan antigen along with high beta D glucan. fungus smear and culture ordered. She has been started on voriconazole on 08/05/19, 200 mg twice a day and typical treatment course runs about [address] Vargas, to see the patient as outpatient. Repeat CAT scan as outpatient 2. Rheumatoid arthritis : Continue Sulfasalazine 3. Asthma with chronic oxygen dependence: Most recent Chest CT demonstrates bibasilar consolidations with air bronchograms suggesting multifocal pneumonia with some chronic changes but it was present on the previous CAT scan as well. CXR on admission significant for plate-like atelectasis. Continue home inhalers, Pulmicort, Symbicort, Incruse with Albuterol Nebs as needed for SOB 4. Essential Tremors: Continue Primidone 5. History of recent upper extremity DVT: Was related to superficial thrombophlebitis due to superficial line. Xarelto been discontinued 6. Chronic CAD s/p PCI: Continue Lipitor, 7. Dyslipidemia: Continue Lipitor 9. GALO: Will use home CPAP 10. Iron deficiency anemia: Continue Ferrous Sulfate supplementation 11. Vitamin B12 deficiency: Continue oral replacement 12. Hypothyroidism: Continue levothyroxine Continue following with the manager of case management regarding the discharge disposition Disposition. Likely subacute rehabilitation. If she is accepted. If not, I have told her that she probably might need to go home VS, I&O, 24H, Fishbone Vital Signs/I&O Vital Signs Date Time Temp Pulse Resp B/P (MAP) Pulse Ox O2 Delivery O2 Flow Rate FiO2 08/09/19 14:00 97.5 89 17 112/62 (79) 99 Nasal Cannula 2.0 I&O- Last 24 Hours up to 6 AM 08/09/19 06:00 Intake Total 950 ml Balance 950 ml Laboratory Data Microbiology Microbiology 08/05/19 Fungal Smear, Received Pending 08/05/19 Fungal Culture, Received Pending 08/04/19 Urine Culture - Final, Complete Klebsiella Pneumoniae 08/04/19 Respiratory Virus Panel (PCR) (MARIE) - Final, Complete 08/03/19 Blood Culture - Final, Complete NO GROWTH AFTER 5 DAYS 08/03/19 Blood Culture - Final, Complete NO GROWTH AFTER 5 DAYS GME ATTESTATION GME ATTESTATION My faculty preceptor for this patient encounter was physically present during the encounter and was fully available. All aspects of the patient interview, examination, medical decision making process, and medical care plan development were reviewed and approved by the faculty preceptor. The faculty preceptor is aware and concurs with the plan as stated in the body of this note and will attest to such by his/her cosignature. ATTENDING NOTE I, Fatoumata Peres, have independently examined this patient and performed my own physical exam, as well as reviewed the documentation. I have discussed in detail with the resident / student the findings and plan of treatment as documented by the resident / student. I agree with their findings and treatment plan. I will continue to follow the patient during this hospital stay. BRAEDEN CHAMBERS MD Aug 09, 2019 15:20 FATOUMATA PERES DO Aug 09, 2019 19:11
[2019-08-09 18:00] VITALS: BP 102/54
[2019-08-09] MEDS: ATORVASTATIN 20 MG TAB PO SCH (21:22)
[2019-08-09] MEDS: LATANOPROST 0.005% OPHTH SOLN 2.5 ML OU SCH (21:23)
[2019-08-09 22:00] VITALS: BP 117/63
[2019-08-10 02:00] VITALS: BP 116/62
[2019-08-10] MEDS: oxyCODONE 5MG TAB PO PRN (04:58)
[2019-08-10] MEDS: LEVOTHYROXINE 100MCG TABLET (0.1MG) PO SCH (05:00)
[2019-08-10 06:00] VITALS: BP 116/61
[2019-08-10] MEDS: BUDESONIDE 0.5 MG/2 ML INHALATION SUSPENSION INH SCH ×2 (08:00→20:00)
[2019-08-10] MEDS: TIOTROPIUM INHALER/CAPSULE (SPIRIVA) INH SCH (08:00)
[2019-08-10] MEDS: SYMBICORT 160/4.5MCG INHALER 6GM INH SCH ×2 (08:27→20:22)
[2019-08-10] MEDS: SPIRONOLACTONE 25 MG TAB PO SCH (08:48)
[2019-08-10] MEDS: TORSEMIDE 20 MG TAB PO SCH (08:49)
[2019-08-10] MEDS: VITAMIN D 1,000 INTERNATIONAL UNITS TABLET PO SCH (08:49)
[2019-08-10] MEDS: FERROUS SULFATE 325MG TAB PO SCH (08:49)
[2019-08-10] MEDS: ASCORBIC ACID 500 MG TAB PO SCH (08:49)
[2019-08-10] MEDS: PRIMIDONE 250 MG TAB PO SCH ×3 (08:49→21:55)
[2019-08-10] MEDS: NORTRIPTYLINE 10 MG CAP PO SCH ×2 (08:49→21:55)
[2019-08-10] MEDS: CYANOCOBALAMIN 500 MCG TAB PO SCH (08:49)
[2019-08-10] MEDS: VORICONAZOLE 200MG TABLET (VFEND) PO SCH ×2 (08:50→21:55)
[2019-08-10] MEDS: sulfaSALAzine 500 MG TABEC PO SCH ×2 (08:50→21:55)
[2019-08-10] MEDS: CALCIUM CARBONATE 500 MG CHEW U/D PO SCH ×2 (08:50→21:55)
[2019-08-10] MEDS: METOPROLOL SUCC *XL* 25MG TAB (TopROL *XL*) PO SCH (08:55)
[2019-08-10 10:00] VITALS: BP 139/74
[2019-08-10 14:00] VITALS: BP 139/70
--- NOTE | 2019-08-10 19:49 | IPNPDOC ---
Text Note Date of Service The patient was seen on 08/10/19. NOTE Subjective: No any acute events overnight. Patient told me that she feel unsafe to go home, she lives alone. She stated that she would rather go to acute rehab. I explained her that tomorrow I will discuss it with long term care social worker and menu planner Objective: VITAL SIGNS: Please see below. GENERAL APPEARANCE: Well-nourished, well-developed, not in apparent distress HEENT: Normocephalic, atraumatic. Mucous members moist and pink CARDIOVASCULAR: Regular rate and rhythm. No murmurs, rubs or gallops. Radial pulses are intact. There is no lower extremity edema LUNGS: Diminished lung sounds, mild expiratory wheezes with bilateral mild rhon chi ABDOMEN: Abdomen is soft and nontender. MUSCULOSKELETAL: Range of motion is intact in all 4 extremities NEUROLOGICAL: Cranial nerves II-12 are grossly intact. Speech is not dysarthric Assessment and plan Patient is 84 years old female with past history of severe asthma who presented to the hospital with increased shortness of breath. Patient was recently diagnosed with aspergillosis. Treatment with voriconazole initiated Fever of unknown origin Resolved Most likely secondary to aspergillosis. Patient was tested positive at [facility] in [place]. She was found to have positive Aspergillus galactomannan antigen along with high beta D glucan. Aspergillosis Most likely cause of frequent asthma exacerbation and multiple hospitalizations in the past Voriconazole for up to 12 weeks Follow-up with CAROL[facility] Vargas Severe Asthma Continue inhalers Not in acute exacerbation Patient is oxygen dependent, baseline 2 L Essential tremors Continue primidone Obstructive sleep apnea CPAP overnight Deconditioning PT/OT evaluation Iron deficiency anemia Continue iron supplementation Hypothyroidism Continue levothyroxine VS,Fishbone, I+O VS, Fishbone, I+O Vital Signs Date Time Temp Pulse Resp B/P (MAP) Pulse Ox O2 Delivery O2 Flow Rate FiO2 08/10/19 14:00 97.3 95 19 139/70 (93) 98 Nasal Cannula 2.0 I&O- Last 24 Hours up to 6 AM 08/10/19 06:00 Intake Total 1290 ml Balance 1290 ml FATOUMATA PERES DO Aug 10, 2019 19:49
[2019-08-10 20:30] VITALS: BP 132/80
[2019-08-10] MEDS: ATORVASTATIN 20 MG TAB PO SCH (21:55)
[2019-08-10] MEDS: LATANOPROST 0.005% OPHTH SOLN 2.5 ML OU SCH (21:56)
[2019-08-11 01:18] VITALS: BP 111/58
[2019-08-11] MEDS: oxyCODONE 5MG TAB PO PRN (05:28)
[2019-08-11] MEDS: LEVOTHYROXINE 100MCG TABLET (0.1MG) PO SCH (05:28)
[2019-08-11 06:00] VITALS: BP 123/79
[2019-08-11] MEDS: SYMBICORT 160/4.5MCG INHALER 6GM INH SCH (06:25)
[2019-08-11] MEDS: NORTRIPTYLINE 10 MG CAP PO SCH (08:34)
[2019-08-11] MEDS: ASCORBIC ACID 500 MG TAB PO SCH (08:34)
[2019-08-11] MEDS: PRIMIDONE 250 MG TAB PO SCH ×2 (08:34→12:48)
[2019-08-11] MEDS: VORICONAZOLE 200MG TABLET (VFEND) PO SCH (08:34)
[2019-08-11] MEDS: SPIRONOLACTONE 25 MG TAB PO SCH (08:34)
[2019-08-11] MEDS: sulfaSALAzine 500 MG TABEC PO SCH (08:34)
[2019-08-11] MEDS: VITAMIN D 1,000 INTERNATIONAL UNITS TABLET PO SCH (08:34)
[2019-08-11] MEDS: FERROUS SULFATE 325MG TAB PO SCH (08:34)
[2019-08-11 08:35] VITALS: BP 112/83
[2019-08-11] MEDS: METOPROLOL SUCC *XL* 25MG TAB (TopROL *XL*) PO SCH (08:35)
[2019-08-11] MEDS: CALCIUM CARBONATE 500 MG CHEW U/D PO SCH (08:35)
[2019-08-11] MEDS: CYANOCOBALAMIN 500 MCG TAB PO SCH (08:35)
[2019-08-11] MEDS: TORSEMIDE 20 MG TAB PO SCH (08:35)
[2019-08-11 10:00] VITALS: BP 125/83
[2019-08-11] MEDS ORDERED: VFEN200T PO (10:58)
--- NOTE | 2019-08-11 15:29 | DS.PDOC ---
Discharge Summary General Date of Admission Aug 03, 2019 at 20:25 Date of Discharge August 11, 2019 Primary Care Physician: Martin Pearson Attending Physician: FATOUMATA PERES DO Specialist/Consultants Involve: Manas Vargas MD Specialist/Consultants Involve Padmini Molina MD Discharge Summary PROCEDURES PERFORMED DURING STAY: [None]. ADMITTING DIAGNOSES: 1. fevers of unknown origin 2. Weakness 3. Rheumatoid arthritis DISCHARGE DIAGNOSES: 1. Aspergillosis 2. rheumatoid arthritis 3. Asymptomatic bacteruria COMPLICATIONS/CHIEF COMPLAINT: Generalized Weakness,Tachycardia. HISTORY OF PRESENT ILLNESS: This is an 84-year-old female who was been in and out of the hospital about 4 times since June 01. During the first admission, on June 01 she was treated for a UTI and discharged to rehabilitation. During the second admission, on June 13 she was treated for for urosepsis and pneumonia; thereafter, she was discharged to [facility] and had to be trans ferred back on July 03 for treatment of septic shock due to UTI. Thereafter, she was transferred to the inpatient rehabilitation unit here, but during her stay spiking fevers as high as 103; per Dr. Steiner note, she had had fevers of unknown, and went to [facility] for higher level of care. According to the patient's family members, she came to the hospital today because she had a fever of 102 and has been very weak. Prior to her arrival the patient denies having headaches, feeling dizzy, or having chest pain. She had 3 falls within the last 12 hours. The first 2 were while she was trying to get up off of the toilet and the second was while she was trying to stand up from the couch. As a result of the falls she did not hit her head. She is also having right groin pain and a cough. Patient's family is requesting transfer to inpatient rehabilitation because she has become very weak over the last few weeks. HOSPITAL COURSE: Patient was admitted with fevers of unknown origin, weakness and numerous falls at home. Electrolytes were replaced and she was placed on telemetry. She was also given 1 dose Vanc and Meropenem in the ED. In addition, on admission her left lower extremity was swollen and reportedly red and there was concern for cellulitis. For this, she was given Clindamycin. On HD $2, records from [facility] were received and patient was found to have positive Aspergillus galactomannan. She was started on empiric Voriconazole while these labs were re-drawn. She was afebrile and hemodynamically stable throughout this hospitalization. Her Xarelto was stopped. She had been started on it for superficial thrombophlebitis from a previous hospitalization. In addition, per the recommendations of the wood inspector at [facility] in [place], her Sulfasalazine was increased to 1,000mg BID. She was discharged on Voriconazole and will follow up with Dr. Vargas and Dr. Degroot in the outpatient setting. DISCHARGE MEDICATIONS: Please see below. ALLERGIES: Please see below. PHYSICAL EXAMINATION ON DISCHARGE: VITAL SIGNS: Please see below. GENERAL APPEARANCE: Laying in bed, appears stated age, no acute distress, calm, cooperative HEENT: EOMI, PERRLA, neck is supple with no thyromegaly or lymphadenopathy RESPIRATORY: Scattered wheezes bilaterally. Frequent coughing but no sputum production CARDIOVASCULAR: no JVD, RRR, no murmurs/rubs/gallops ABDOMEN: Soft, nontender to palpation in all four quadrants, no masses/organomegaly EXTREMITIES: no clubbing, cyanosis or edema noted LYMPHATICS: There are no enlarged lymph nodes in the femoral, cervical, supraclavicular chains NEUROLOGICAL: No obvious focal deficits PSYCHIATRIC: normal mood/affect Skin: No rashes or ulcers. LABORATORY DATA: Please see below. IMAGING: CXR 08/04/2019 FINDINGS: There is plate-like atelectasis in the left base. Aeration in the left base is improved from the July 14, 2019 prior study. The heart is not enlarged. No new infiltrate is seen. Pleural angles are sharp. The aorta somewhat tortuous. IMPRESSION: Linear plate-like atelectasis left base. Left base aeration is improved compared to the July 14, 2019 prior study. PROGNOSIS: fair ACTIVITY: [As tolerated]. DIET: regular, as tolerated DISCHARGE PLAN: Home with services DISPOSITION: . DISCHARGE INSTRUCTIONS: 1. Follow up with Dr. Vargas within 2 weeks 2. Follow up with Pulmonology within 2 weeks ITEMS TO FOLLOWUP ON ON OUTPATIENT: 1. Aspergillus galactomannan, B -D glucan labs DISCHARGE CONDITION: [Stable]. TIME SPENT ON DISCHARGE: Greater than 40 minutes. Vital Signs/I&Os Vital Signs Date Time Temp Pulse Resp B/P (MAP) Pulse Ox O2 Delivery O2 Flow Rate FiO2 08/11/19 12:30 2.0 08/11/19 10:00 96.7 87 20 125/83 (97) 99 Nasal Cannula I&O- Last 24 Hours up to 6 AM 08/11/19 06:00 Intake Total 1320 ml Balance 1320 ml Laboratory Data Labs 24H Laboratory Tests 2 08/11/19 08:03: C-Reactive Protein, Quantitative 1.56H Microbiology Microbiology 08/05/19 Fungal Smear, Received Pending 08/05/19 Fungal Culture, Received Pending 08/04/19 Urine Culture - Final, Complete Klebsiella Pneumoniae 08/04/19 Respiratory Virus Panel (PCR) (MARIE) - Final, Complete 08/03/19 Blood Culture - Final, Complete NO GROWTH AFTER 5 DAYS 08/03/19 Blood Culture - Final, Complete NO GROWTH AFTER 5 DAYS Discharge Medications Scheduled Albuterol Sulf (Albuterol Sulfate) 2.5 Mg/3 Ml Vial.neb, 2.5 MG INH BID, (Reported) 0700, 2000 Ascorbic Acid (Ascorbic Acid) 500 Mg Tablet, 500 MG PO DAILY, (Reported) Atorvastatin Calcium (Atorvastatin Calcium) 40 Mg Tablet, 40 MG PO QHS, (Reported) Budesonide (Budesonide) 0.5 Mg/2 Ml Ampul.neb, 1 VIAL INH BID, (Reported) 0900, 1700 Calcium Carbonate/Vitamin D3 (Calcium 500 mg Chewable Tablet) 1 Each Tab.chew, 500 MG PO BID, (Reported) Cholecalciferol (Vitamin D3) (Vitamin D3) 2,000 Unit Tab.chew, 2,000 UNIT PO DAILY, (Reported) Cyanocobalamin (Vitamin B-12) (B-12) 1,000 Mcg Tablet, 1,000 MCG PO DAILY, (Reported) Ferrous Sulfate (Ferrous Sulfate) 325 Mg Tablet, 325 MG PO DAILY, (Reported) Latanoprost (Xalatan) 0.005% 2.5ML Drops, 1 DROP OU QHS, (Reported) Levothyroxine Sodium (Synthroid) 100 Mcg Tablet, 100 MCG PO DAILY, (Reported) Magnesium Hydroxide (Milk of Magnesia) 400 Mg/5 Ml Oral.susp, 2,400 MG PO Q2D, (Reported) EVERY OTHER NIGHT Metoprolol Succinate (Metoprolol Succinate) 25 Mg Tab.er.24h, 25 MG PO DAILY, (Reported) Mometasone/Formoterol (Dulera 200 Mcg/5 Mcg Inhaler) 13 Gm Hfa.aer.ad, 2 PUFF INH BID, (Reported) Nortriptyline HCl (Nortriptyline HCl) 10 Mg Capsule, 10 MG PO BID, (Reported) Primidone (Primidone) 250 Mg Tab, 250 MG PO TID, (Reported) 0800, 1200, QHS Rivaroxaban (Xarelto) 10 Mg Tablet, 10 MG PO QPM, (Reported) PROVIDER AT [place] TOLD PT TO STOP MEDICATION AFTER THEIR DOSE ON 08/05/19 Spironolactone (Aldactone) 25 Mg Tab, 25 MG PO DAILY, (Reported) Sulfasalazine (Sulfasalazine) 500 Mg Tab, 1,000 MG PO BID, (Reported) Torsemide (Torsemide) 20 Mg Tablet, 60 MG PO 3XW, (Reported) SUNDAY, SUNDAY AND SUNDAY Torsemide (Torsemide) 20 Mg Tablet, 40 MG PO 4XWK, (Reported) SUN/SUN//SAT Umeclidinium Corinne (Incruse Ellipta) 62.5 Mcg/Inh Inh, 1 PUFF INH DAILY, (Reported) Voriconazole (Vfend) 200 Mg Tablet, 200 MG PO BID Scheduled PRN Acetaminophen (Acetaminophen) 500 Mg Tablet, 1,000 MG PO Q8H PRN for PAIN / FEVER, (Reported) Bisacodyl (Bisacodyl) 10 Mg Supp.rect, 10 MG HI DAILY PRN for CONSTIPATION, (Reported) Nystatin (Nystatin Powder) 15 Gm Powder, 1 DOSE TOP DAILY PRN for RASH, (Reported) APPLY TO ABDOMINAL FOLDS AFTER BATH NEEDED Oxycodone HCl (Oxycodone HCl) 5 Mg Tablet, 5 MG PO Q6H PRN for PAIN, (Reported) Sennosides/Docusate Sodium (Senna-S Tablet) 1 Each Tablet, 2 TAB PO BID PRN for CONSTIPATION, (Reported) Sodium Phosphate,[place]-Dibasic (Fleet Enema) 133 Ml Enema, 1 SSUAN [place] DAILY PRN for CONSTIPATION, (Reported) Allergies Coded Allergies: ibuprofen (Verified Allergy, Severe, respiratory distress, 08/03/19) Cephalosporins (Verified Allergy, Intermediate, SEVERE HIVES, 08/03/19) iodine (Verified Allergy, Intermediate, SEVERE HIVES, 08/03/19) tetracycline (Verified Allergy, Intermediate, hives, 08/03/19) cephalexin (Verified Allergy, Mild, RASH (FROM kEFLEX), 08/03/19) vancomycin (Verified Allergy, Mild, facial and arm rash and itching, 08/04/19) ciprofloxacin (Verified Allergy, Unknown, 08/03/19) NSAIDS (Non-Steroidal Anti-Inflamma (Verified Adverse Reaction, Intermediate, unable to take d/t asthma, 08/03/19) morphine (Verified Adverse Reaction, Intermediate, HALLUCINATIONS, 08/03/19) GME ATTESTATION GME ATTESTATION My faculty preceptor for this patient encounter was physically present during the encounter and was fully available. All aspects of the patient interview, examination, medical decision making process, and medical care plan development were reviewed and approved by the faculty preceptor. The faculty preceptor is aware and concurs with the plan as stated in the body of this note and will attest to such by his/her cosignature. ATTENDING NOTE I, Fatoumata Peres, have independently examined this patient and performed my own physical exam, as well as reviewed the documentation. I have discussed in detail with the resident / student the findings and plan of treatment as documented by the resident / student. I agree with their findings and treatment plan. I will continue to follow the patient during this hospital stay. BRAEDEN CHAMBERS MD Aug 11, 2019 15:29 FATOUMATA PERES DO Aug 13, 2019 13:16
== END 2019-08-11 17:16 | disposition home health service (06) | DRG 194 ==
LOC: M ED 15:58 → M ED INP 20:25 → ENRESERV 20:51 → M MSPAV 21:55 → M PCU 08-04 04:30 → M MSPAV 08-05 17:28
PROVIDERS: ADMIT Internal Medicine; ATTEND Internal Medicine
DX: J16.8 Pneumonia due to other specified infectious organisms (principal); I50.32 Chronic diastolic (congestive) heart failure; B44.9 Aspergillosis, unspecified; R50.9 Fever, unspecified; R29.6 Repeated falls; J45.909 Unspecified asthma, uncomplicated; I11.0 Hypertensive heart disease with heart failure; G25.0 Essential tremor; G24.3 Spasmodic torticollis; I25.10 Atherosclerotic heart disease of native coronary artery without angina pectoris; Z98.61 Coronary angioplasty status; E03.9 Hypothyroidism, unspecified; M06.9 Rheumatoid arthritis, unspecified; G47.33 Obstructive sleep apnea (adult) (pediatric); E66.9 Obesity, unspecified; Z68.35 Body mass index [BMI] 35.0-35.9, adult; Z86.718 Personal history of other venous thrombosis and embolism; Z98.41 Cataract extraction status, right eye; Z98.42 Cataract extraction status, left eye; Z90.79 Acquired absence of other genital organ(s); Z90.49 Acquired absence of other specified parts of digestive tract; Z99.81 Dependence on supplemental oxygen; E53.8 Deficiency of other specified B group vitamins; D50.9 Iron deficiency anemia, unspecified; Z79.01 Long term (current) use of anticoagulants; E78.5 Hyperlipidemia, unspecified; R54 Age-related physical debility; R82.71 Bacteriuria; B96.1 Klebsiella pneumoniae [K. pneumoniae] as the cause of diseases classified elsewhere

== ENCOUNTER → 2019-08-28 | Outpatient (REF) | payer MEDICARE ==
[~2019-08-28] MED LIST changes: +B-12100020 PO; +B-12100T2 PO; +OXYC-517 PO; +VFEN200T PO
[2019-08-28 14:52] LABS: ALBUMIN 3.2 GM/DL (3.2-5.2); BASO % 0.3 % (0.0-1.0); BILIRUBIN,TOTAL 0.2 MG/DL (0.2-1.0); C REACTIVE PROTEIN QUANTITATIV 1.5 MG/DL (0.00-0.30); CALCIUM LEVEL 8.7 MG/DL (8.8-10.2); CREATININE FOR GFR 1.46 MG/DL (0.55-1.30); EOS # 0.2 10^3/uL (0.0-0.5); EOS % 2.6 % (0.0-3.0); GLOMERULAR FILTRATION RATE 36.2 (>32); HEMATOCRIT 29.9 % (36.0-47.0); HEMOGLOBIN 9.3 g/dl (12.0-15.5); LYMPH # 1.5 10^3/uL (1.5-5.0); LYMPH % 22.6 % (24.0-44.0); MEAN CORPUSCULAR HEMOGLOBIN 33.1 pg (27.0-33.0); MEAN CORPUSCULAR HGB CONC 31.1 g/dl (32.0-36.5); MEAN CORPUSCULAR VOLUME 106.4 fl (80.0-96.0); MONO # 0.5 10^3/uL (0.0-0.8); MONO % 7.8 % (0.0-5.0); NEUTROPHILS # 4.3 10^3/uL (1.5-8.5); NEUTROPHILS % 66.2 % (36.0-66.0); PLATELET COUNT, AUTOMATED 383 10^3/uL (150-450); POTASSIUM SERUM 4.4 MEQ/L (3.5-5.1); RED BLOOD COUNT 2.81 10^6/uL (4.00-5.40); WHITE BLOOD COUNT 6.4 10^3/uL (4.0-10.0)
[2019-08-28 15:24] LABS: ERYTHROCYTE SEDIMENTATION RATE 126 mm/hr (0-30)
== END ==
LOC: M SFHCPLAZ 12:33
PROVIDERS: ATTEND Internal Medicine Infectious Disease
DX: B44.9 Aspergillosis, unspecified (principal)

== ENCOUNTER → 2019-08-29 | Outpatient (REF) | payer MEDICARE ==
[2019-08-29 15:24] LABS: BASO % 0.5 % (0.0-1.0); EOS # 0.2 10^3/uL (0.0-0.5); EOS % 2.6 % (0.0-3.0); HEMATOCRIT 33.4 % (36.0-47.0); HEMOGLOBIN 10.2 g/dl (12.0-15.5); LYMPH # 1.5 10^3/uL (1.5-5.0); LYMPH % 24.2 % (24.0-44.0); MEAN CORPUSCULAR HEMOGLOBIN 32.8 pg (27.0-33.0); MEAN CORPUSCULAR HGB CONC 30.5 g/dl (32.0-36.5); MEAN CORPUSCULAR VOLUME 107.4 fl (80.0-96.0); MONO # 0.4 10^3/uL (0.0-0.8); MONO % 6.5 % (0.0-5.0); NEUTROPHILS # 4.1 10^3/uL (1.5-8.5); NEUTROPHILS % 65.9 % (36.0-66.0); PLATELET COUNT, AUTOMATED 364 10^3/uL (150-450); RED BLOOD COUNT 3.11 10^6/uL (4.00-5.40); WHITE BLOOD COUNT 6.2 10^3/uL (4.0-10.0)
[2019-08-29 15:50] LABS: ALBUMIN 3.6 GM/DL (3.2-5.2); BILIRUBIN,TOTAL 0.2 MG/DL (0.2-1.0); C REACTIVE PROTEIN QUANTITATIV 1.5 MG/DL (0.00-0.30); CALCIUM LEVEL 9.4 MG/DL (8.8-10.2); CREATININE FOR GFR 1.17 MG/DL (0.55-1.30); GLOMERULAR FILTRATION RATE 46.8 (>32); POTASSIUM SERUM 4.5 MEQ/L (3.5-5.1); TOTAL PROTEIN 8.7 GM/DL (6.4-8.2)
[2019-08-29 15:51] LABS: ERYTHROCYTE SEDIMENTATION RATE > 140 mm/hr (0-30)
[2019-09-03 00:06] LABS: ASPERGILLUS GALACTOMANNAN AG 0.17 Index (0.00-0.49)
== END ==
LOC: M SHH 15:03
PROVIDERS: ATTEND Internal Medicine Infectious Disease
DX: B44.9 Aspergillosis, unspecified (principal)

== ENCOUNTER → 2019-10-21 | Outpatient (REF) | payer MEDICARE ==
[2019-10-21 15:34] LABS: BASO % 0.2 % (0.0-1.0); EOS # 0.1 10^3/uL (0.0-0.5); HEMATOCRIT 31.8 % (36.0-47.0); LYMPH # 1.3 10^3/uL (1.5-5.0); LYMPH % 13.8 % (24.0-44.0); MEAN CORPUSCULAR HEMOGLOBIN 32.9 pg (27.0-33.0); MEAN CORPUSCULAR HGB CONC 31.4 g/dl (32.0-36.5); MEAN CORPUSCULAR VOLUME 104.6 fl (80.0-96.0); MONO # 0.7 10^3/uL (0.0-0.8); MONO % 6.9 % (0.0-5.0); NEUTROPHILS # 7.4 10^3/uL (1.5-8.5); NEUTROPHILS % 77.6 % (36.0-66.0); PLATELET COUNT, AUTOMATED 373 10^3/uL (150-450); RED BLOOD COUNT 3.04 10^6/uL (4.00-5.40); WHITE BLOOD COUNT 9.6 10^3/uL (4.0-10.0)
[2019-10-21 16:08] LABS: ALBUMIN 3.2 GM/DL (3.2-5.2); BILIRUBIN,TOTAL 0.4 MG/DL (0.2-1.0); CALCIUM LEVEL 8.7 MG/DL (8.8-10.2); CHOLESTEROL RISK RATIO 2.448 (<5); CREATININE FOR GFR 1.18 MG/DL (0.55-1.30); GLOMERULAR FILTRATION RATE 46.3 (>32); MAGNESIUM LEVEL 2.2 MG/DL (1.8-2.4); POTASSIUM SERUM 4.2 MEQ/L (3.5-5.1); THYROID STIMULATING HORMONE 2.1 uIU/ML (0.358-3.740); TOTAL PROTEIN 8.4 GM/DL (6.4-8.2); URIC ACID 9.2 MG/DL (2.6-6.0)
== END ==
LOC: M SFHCPLAZ 14:06
PROVIDERS: ATTEND Internal Medicine
DX: I10 Essential (primary) hypertension (principal); I27.81 Cor pulmonale (chronic); E03.9 Hypothyroidism, unspecified; M79.675 Pain in left toe(s)
CPT/HCPCS: 36415; 80053; 80061; 83735; 84443; 84550; 85025; G0463

== ENCOUNTER → 2019-10-27 | Outpatient (CLI) | payer MEDICARE ==
[2019-10-31 21:22] LABS: ASPERGILLUS FLAVUS ABY Negative (Neg:<1:1); ASPERGILLUS FUMIGATUS ABY Negative (Neg:<1:1); ASPERGILLUS NIGER ABY Negative (Neg:<1:1); BLASTOMYCES ANTIBODY LEVEL Negative (Neg:<1:1); HISTOPLASMOSIS ANTIBODY Negative (Neg:<1:1)
== END ==
LOC: M PLALAB 15:13
PROVIDERS: ATTEND Internal Medicine Pulmonary Disease
DX: R91.8 Other nonspecific abnormal finding of lung field (principal)

== ENCOUNTER → 2019-10-28 | Outpatient (REF) | payer MEDICARE | LOC: M LAB REF 17:51 | PROVIDERS: ATTEND Internal Medicine Pulmonary Disease | DX: R91.8 Other nonspecific abnormal finding of lung field (principal) ==

== ENCOUNTER → 2019-10-29 | Outpatient (REF) | payer MEDICARE | LOC: M LAB REF 17:24 | PROVIDERS: ATTEND Internal Medicine Pulmonary Disease | DX: R91.8 Other nonspecific abnormal finding of lung field (principal) ==

== ENCOUNTER 2019-12-01 14:08 | Inpatient (IN) | payer MEDICARE ==
[~2019-12-01] VITALS: Ht 152.4 cm; Wt 77.2 kg
[2019-12-01 17:18] LABS: BASO % 0.1 % (0.0-1.0); EOS # 0.1 10^3/uL (0.0-0.5); EOS % 0.6 % (0.0-3.0); HEMATOCRIT 33.1 % (36.0-47.0); HEMOGLOBIN 10.6 g/dl (12.0-15.5); LYMPH # 1.1 10^3/uL (1.5-5.0); LYMPH % 11.1 % (24.0-44.0); MEAN CORPUSCULAR HEMOGLOBIN 33.7 pg (27.0-33.0); MEAN CORPUSCULAR VOLUME 105.1 fl (80.0-96.0); MONO # 0.7 10^3/uL (0.0-0.8); MONO % 6.9 % (0.0-5.0); NEUTROPHILS # 7.7 10^3/uL (1.5-8.5); NEUTROPHILS % 80.9 % (36.0-66.0); PLATELET COUNT, AUTOMATED 350 10^3/uL (150-450); RED BLOOD COUNT 3.15 10^6/uL (4.00-5.40); WHITE BLOOD COUNT 9.5 10^3/uL (4.0-10.0)
[2019-12-01 17:48] LABS: ALBUMIN 3.2 GM/DL (3.2-5.2); ALT/SGPT 11 U/L (12-78); BILIRUBIN,DIRECT < 0.1 MG/DL (0.0-0.2); BILIRUBIN,TOTAL 0.2 MG/DL (0.2-1.0); BLOOD UREA NITROGEN 41 MG/DL (7-18); CALCIUM LEVEL 8.9 MG/DL (8.8-10.2); CARBON DIOXIDE LEVEL 32 MEQ/L (21-32); CHLORIDE LEVEL 96 MEQ/L (98-107); CK-MB VALUE MASS < 1.0 NG/ML (<3.6); CPK CREATINE PHOSPHOKINASE 57 U/L (26-192); CREATININE FOR GFR 1.83 MG/DL (0.55-1.30); GLOMERULAR FILTRATION RATE 27.9 (>32); GLUCOSE, FASTING 113 MG/DL (70-100); MB/CK RELATIVE INDEX 1.75 (< OR =4); NT-PRO BNP 125 PG/ML (<450); SODIUM LEVEL 133 MEQ/L (136-145); THYROXINE (T4) 10.6 UG/DL (4.5-12.0); TOTAL PROTEIN 8.4 GM/DL (6.4-8.2); TROPONIN I < 0.02 NG/ML (< 0.10)
[2019-12-01] MEDS ORDERED: NS 1,000 ML IV ONE (18:30)
--- NOTE | 2019-12-01 19:09 | HPEPDOC ---
[facility] Medical History & Physical Date of Admission Dec 01, 2019 Date of Service: Dec 01, 2019 Attending Physician: Genie Garrett MD History and Physical CHIEF COMPLAINT: Weakness HISTORY OF PRESENT ILLNESS: Patient is an 84 y/o F with extensive PMH of asthma, COPD O2 dependent on 2 L NC, diastolic CHF, HTN, hypothyroidism, hx of DVT who presented to [facility] ER with the chief complaint of increased weakness. Patient states that she has had increased weakness, worse than her baseline. Patient has been getting treated by Dr. Degroot for fungal pneumonia and recently treated with fluconazole. Her daughter called Dr. Degroot today to follow up over the phone and she mentioned her mother was weaker than normal. Dr. Degroot suggested for her to come to the ER for further evaluation. She has had no recent falls. Patient states she has baseline shortness of breath but she admits to coughing more than usual. Denies n/v/d, chest pain, abdominal pain, cramping in legs, dysuria, decreased appetite or PO intake. Patient admits to not eating well at baseline, gets Meals on Wheels. She has numbness in the lower ext in b/l lower ext- this is chronic from a back injury In the ER patient was noticeably weak. VS stable on 2 L NC. Na low at 133, Cr elevated at 1.83 (baseline Cr 1.18). CXR showed chronic changes only. On patient's meds, she was noted to be on three diuretics. Poor skin turgor. P atient was complaining of neck pain, chronic. She was admitted under inpatient status for generalized weakness, acute kidney injury. PAST MEDICAL/ SURGICAL HISTORY: Asthma Chronic oxygen-dependent respiratory failure Chronic diastolic CHF/chronic HTN Essential tremors Cervical dystonia Chronic CAD status post PCI /Dyslipidemia Hypothyroidism Rheumatoid arthritis GALO / obesity Superficial basilic vein nonocclusive thrombus She reports having a "brain bleed" that did not require surgical intervention Lower ext numbness bilateral, chronic SURGICAL HISTORY: Bilateral cataract surgery Dilatation of left Stensen duct for peritonitis Total Hysterectomy Tonsillectomy Diverticular abscess with diverging colostomy placement with subsequent reversal FAMILY HISTORY: Her mother had a CVA in her 40s PAST SURGICAL HISTORY: Total hysterectomy Polyp removal SOCIAL HISTORY: Smoking history, smoked for many years. Quit > 20 years ago. Full Code. Updated MOLST form. FAMILY HISTORY: Father:CAD. Mother: CAD. ALLERGIES: Please see below. HOME MEDICATIONS: Please see below. PHYSICAL EXAMINATION: CONSTITUTIONAL: Uncomfortable, AAO x 3 EYES: PERRLA, EOM intact HENT, MOUTH: Normocephalic, atraumatic, dry mucous membranes NECK: SUPPLE, no JVD, no lymphadenopathy, no carotid bruit CV: Regular rate and rhythm, S1S2 normal, no murmurs/rubs/gallops RESPIRATORY: Clear to auscultation bilaterally, no rales/rhonchi/wheezes GI: BS positive in 4 quadrants, soft, nontender, nondistended, no rebound or guarding, no organomegaly : Deferred MUSCULOSKELETAL: Pain to touching bilateral legs, ROM not tested . No cyanosis, clubbing, swelling, joint deformity, mild nonpitting bilateral lower extremity edema. INTEGUMENTARY: Intact, no rashes, no lesions, no erythema NEUROLOGIC: Cranial Nerves II-XII are intact, no focal deficits PSYCHIATRIC: Mood and affect are normal LABORATORY DATA: Please see below IMAGING: CXR: chronic changes ASSESSMENT: 84 y/o F with extensive PMH above admitted for increased generalized weakness, acute kidney injury. PLAN: 1. Increased generalized weakness likely 2/2 to dehydration, acute kidney injury -Cr 1.8, Na 133, poor skin turgor -IVFs at 100 cc/hr, holding all three diuretics. Avoid other nephrotoxic medications -Daily labs, PT/OT 2. Fungal PNA -CXR shows chronic changes -C/w fluconazole 3. COPD/asthma on 2 L NC ATC. -Appears to be at baseline, saturating well on 2 L NC -Duonebs ATC, albuterol PRN, budesonide 4. Diastolic CHF -Stable. BNP <200 -C/w BB, holding diuretics, resume when better hydrated. 5. HTN -Stable, currently 125 mmHg systolic -C/w BB, holding diuretics. 6. Hx of chronic neck pain, cervical dystonia -C/w pain medications 7. CAD s/p PCI -Denies chest pain, worsening sob, diaphoresis -C/w BB, statin. 8. Hypothyroidism -C/w home med 9. DVT px. -Heparin sC DISPOSITION: Admitted under inpatient status. PT/OT to assess in AM. Vital Signs Vital Signs Date Time Temp Pulse Resp B/P (MAP) Pulse Ox O2 Delivery O2 Flow Rate FiO2 12/01/19 16:34 18 119/61 (80) 12/01/19 16:31 86 96 Nasal Cannula 2.0 12/01/19 14:29 97.1 Laboratory Data Labs 24H Laboratory Tests 2 12/01/19 17:00: Immature Granulocyte % (Auto) 0.4, Neutrophils (%) (Auto) 80.9H, Lymphocytes (%) (Auto) 11.1L, Monocytes (%) (Auto) 6.9H, Eosinophils (%) (Auto) 0.6, Basophils (%) (Auto) 0.1, Neutrophils # (Auto) 7.7, Lymphocytes # (Auto) 1.1L, Monocytes # (Auto) 0.7, Eosinophils # (Auto) 0.1, Basophils # (Auto) 0.0, Nucleated Red Blood Cells % (auto) 0.0, Anion Gap 5L, Glomerular Filtration Rate 27.9L, Lactic Acid Level 1.9, Calcium Level 8.9, Total Bilirubin 0.2, Direct Bilirubin < 0.1, Aspartate Amino Transf (AST/SGOT) 26, Alanine Aminotransferase (ALT/SGPT) 11L, Alkaline Phosphatase 102, Total Creatine Kinase 57, Creatine Kinase MB < 1.0, Creatine Kinase MB Relative Index 1.75, Troponin I < 0.02, BG-Ptx-L-Type Natriuretic Peptide 125, Total Protein 8.4H, Albumin 3.2, Albumin/Globulin Ratio 0.6L, Thyroid Stimulating Hormone (TSH) 1.010, Thyroxine (T4) 10.6 CBC/BMP Laboratory Tests 12/01/19 17:00 Microbiology Microbiology 12/01/19 Blood Culture, Received Pending 12/01/19 Blood Culture, Received Pending 12/01/19 Respiratory Virus Panel (PCR) (MARIE) - Final, Complete Home Medications Scheduled Albuterol Sulf (Albuterol Sulfate) 2.5 Mg/3 Ml Vial.neb, 2.5 MG INH BID 0700, 2000 Ascorbic Acid (Ascorbic Acid) 500 Mg Tablet, 500 MG PO DAILY Atorvastatin Calcium (Atorvastatin Calcium) 40 Mg Tablet, 40 MG PO QHS Budesonide (Budesonide) 0.5 Mg/2 Ml Ampul.neb, 1 VIAL INH BID 0900, 1700 Calcium Carbonate/Vitamin D3 (Calcium 500 mg Chewable Tablet) 1 Each Tab.chew, 500 MG PO BID Cholecalciferol (Vitamin D3) (Vitamin D3) 1,000 Unit Tablet, 2,000 UNITS PO DAILY Cyanocobalamin (Vitamin B-12) (B-12) 1,000 Mcg Tablet, 1,000 MCG PO DAILY Ferrous Sulfate (Ferrous Sulfate) 325 Mg Tablet, 325 MG PO DAILY Fluconazole (Fluconazole) 200 Mg Tablet, 200 MG PO BID HAS COMPLETED 7 OUT OF 14 DAY COURSE Latanoprost (Xalatan) 0.005% 2.5ML Drops, 1 DROP OU QHS Levothyroxine Sodium (Synthroid) 100 Mcg Tablet, 100 MCG PO DAILY Metoprolol Succinate (Metoprolol Succinate) 25 Mg Tab.er.24h, 25 MG PO DAILY Mometasone/Formoterol (Dulera 200 Mcg/5 Mcg Inhaler) 13 Gm Hfa.aer.ad, 2 PUFF INH BID Nortriptyline HCl (Nortriptyline HCl) 10 Mg Capsule, 10 MG PO BID Primidone (Primidone) 250 Mg Tab, 250 MG PO TID 0800, 1200, QHS Spironolactone (Aldactone) 25 Mg Tab, 25 MG PO DAILY Sulfasalazine (Sulfasalazine) 500 Mg Tab, 1,000 MG PO BID Torsemide (Torsemide) 20 Mg Tablet, 60 MG PO 3XW SUNDAY, SUNDAY AND SUNDAY Torsemide (Torsemide) 20 Mg Tablet, 40 MG PO 4XWK SUN/TUE/THURS/SAT Umeclidinium [place] (Incruse Ellipta) 62.5 Mcg/Inh Inh, 1 PUFF INH DAILY Scheduled PRN Acetaminophen (Acetaminophen) 500 Mg Tablet, 1,000 MG PO Q8H PRN for PAIN / FEVER Bisacodyl (Bisacodyl) 10 Mg Supp.rect, 10 MG [place] DAILY PRN for CONSTIPATION Magnesium Hydroxide (Milk of Magnesia) 400 Mg/5 Ml Oral.susp, 15 ML PO QHS PRN for CONSTIPATION Nystatin (Nystatin Powder) 15 Gm Powder, 1 DOSE TOP DAILY PRN for RASH APPLY TO ABDOMINAL FOLDS AFTER BATH NEEDED Sennosides/Docusate Sodium (Senna-S Tablet) 1 Each Tablet, 2 TAB PO BID PRN for CONSTIPATION Sodium Phosphate,[place]-Dibasic (Fleet Enema) 133 Ml Enema, 1 SUSAN [place] DAILY PRN for CONSTIPATION Allergies Coded Allergies: ibuprofen (Verified Allergy, Severe, respiratory distress, 08/03/19) Cephalosporins (Verified Allergy, Intermediate, SEVERE HIVES, 08/03/19) iodine (Verified Allergy, Intermediate, SEVERE HIVES, 08/03/19) tetracycline (Verified Allergy, Intermediate, hives, 08/03/19) cephalexin (Verified Allergy, Mild, RASH (FROM kEFLEX), 08/03/19) vancomycin (Verified Allergy, Mild, facial and arm rash and itching, 08/04/19) ciprofloxacin (Verified Allergy, Unknown, 08/03/19) NSAIDS (Non-Steroidal Anti-Inflamma (Verified Adverse Reaction, Severe, unable to take d/t asthma, 12/01/19) morphine (Verified Adverse Reaction, Intermediate, HALLUCINATIONS, 08/03/19) A-FIB/CHADSVASC A-FIB History Current/History of A-Fib/PAF?: No Current PO Anticoag Therapy: No Age/Risk Factor Scoring CHADSVASC: CHADSVASC Response (Comments) Value Age Risk Factor Age >/= 75 years old 2 Gender Risk Factor Female 1 Hx of CHF No 0 Hx of HTN Yes 1 Hx of Stroke/TIA/or VTE No 0 Hx of Diabetes No 0 Hx of Vascular Disease No 0 Total 4 Treatment Treatment ordered: Other Other anticoagulant ordered: heparin Genie Garrett MD Dec 01, 2019 19:09
[2019-12-01] MEDS ORDERED: NORCO, ANEXSIA 5/325MG TABLET (HYDROcodone/ACETAMINOPHEN) PO ONE (19:30)
[2019-12-01] MEDS ORDERED: FLUC200T2 PO (19:37)
[2019-12-01] MEDS ORDERED: VITAD1000T PO (19:37)
[2019-12-01] MEDS ORDERED: ALBUTEROL SULFATE 2.5 MG/0.5 ML INH NEB SOLN NEB PRN (19:45)
[2019-12-01] MEDS ORDERED: SENOKOT S TAB PO PRN (19:45)
[2019-12-01] MEDS ORDERED: NYSTATIN 100,000 UNITS/GM TOPICAL PWD 15 GM TOP PRN (19:45)
[2019-12-01] MEDS ORDERED: MOM 30ML SUSPENSION UDC PO PRN (19:45)
[2019-12-01] MEDS ORDERED: BISACODYL 10 MG SUPP PR PRN (19:45)
[2019-12-01 20:31] VITALS: BP 130/70
[2019-12-01] MEDS: NS 1,000 ML IV SCH (21:28)
[2019-12-01] MEDS: LATANOPROST 0.005% OPHTH SOLN 2.5 ML OU SCH (21:32)
[2019-12-01] MEDS: CALCIUM CARBONATE 500 MG CHEW U/D PO SCH (21:32)
[2019-12-01] MEDS: HEPARIN SOD (PORCINE) 5000UNITS/ML VIAL (J1644 PER 1000UNITS) SQ SCH (21:32)
[2019-12-01] MEDS: NORTRIPTYLINE 10 MG CAP PO SCH (21:33)
[2019-12-01] MEDS: ATORVASTATIN 20 MG TAB PO SCH (21:34)
[2019-12-01] MEDS: FLUCONAZOLE 100 MG TAB PO SCH (21:34)
[2019-12-01] MEDS: PRIMIDONE 250 MG TAB PO SCH (21:35)
[2019-12-01] MEDS ORDERED: traMADol 50 MG TAB PO ONE (23:15)
[2019-12-01] MEDS: BUDESONIDE 0.5 MG/2 ML INHALATION SUSPENSION INH SCH (23:42)
[2019-12-01] MEDS: IPRATROPIUM 0.5MG/ALBUTEROL 2.5MG INH SOL UD 3ML (DUONEB) NEB SCH (23:42)
[2019-12-02] MEDS: IPRATROPIUM 0.5MG/ALBUTEROL 2.5MG INH SOL UD 3ML (DUONEB) NEB SCH ×2 (02:00→07:38)
[2019-12-02] MEDS: NS 1,000 ML IV SCH ×2 (05:11→18:34)
[2019-12-02] MEDS: LEVOTHYROXINE 100MCG TABLET (0.1MG) PO SCH (05:25)
[2019-12-02] MEDS: ACETAMINOPHEN 500 MG TAB PO PRN ×2 (05:26→22:04)
[2019-12-02 06:00] VITALS: BP 124/66
[2019-12-02] MEDS ORDERED: LIDOCAINE 5% (LIDODERM) PATCH TD SCH (06:00)
[2019-12-02 06:06] LABS: HEMATOCRIT 32.5 % (36.0-47.0); HEMOGLOBIN 10.1 g/dl (12.0-15.5); MEAN CORPUSCULAR HEMOGLOBIN 33.2 pg (27.0-33.0); MEAN CORPUSCULAR HGB CONC 31.1 g/dl (32.0-36.5); MEAN CORPUSCULAR VOLUME 106.9 fl (80.0-96.0); PLATELET COUNT, AUTOMATED 340 10^3/uL (150-450); RED BLOOD COUNT 3.04 10^6/uL (4.00-5.40); WHITE BLOOD COUNT 7.6 10^3/uL (4.0-10.0)
[2019-12-02 06:37] LABS: ALBUMIN 2.8 GM/DL (3.2-5.2); BILIRUBIN,TOTAL 0.3 MG/DL (0.2-1.0); CALCIUM LEVEL 8.9 MG/DL (8.8-10.2); CREATININE FOR GFR 1.51 MG/DL (0.55-1.30); GLOMERULAR FILTRATION RATE 34.9 (>32); POTASSIUM SERUM 4.3 MEQ/L (3.5-5.1); TOTAL PROTEIN 7.7 GM/DL (6.4-8.2)
[2019-12-02] MEDS: BUDESONIDE 0.5 MG/2 ML INHALATION SUSPENSION INH SCH ×3 (07:40→20:55)
--- NOTE | 2019-12-02 08:04 | ECGEPIP ---
[facility] - ED Test Date: 2019-12-01 Pat Name: STEFANO ROLDAN Department: Room: - Gender: Female Hand Potter: ef : 1935 Requested By: HILARY Cain Order Number: [id number] Reading MD: Jerson Sahu Measurements Intervals [place] Rate: 83 P: 13 DE: 134 QRS: -10 QRSD: 94 T: 34 QT: 404 QTc: 475 Interpretive Statements SINUS RHYTHM POSSIBLE INCOMPLETE RIGHT BUNDLE BRANCH BLOCK POOR R WAVE PROGRESSION SIMILAR TO 08/04/19 Electronically Signed on 12-02-2019 8:04:22 EDT by Jerson Sahu
[2019-12-02] MEDS: HEPARIN SOD (PORCINE) 5000UNITS/ML VIAL (J1644 PER 1000UNITS) SQ SCH ×2 (08:22→22:02)
[2019-12-02] MEDS: ASCORBIC ACID 500 MG TAB PO SCH (08:22)
[2019-12-02] MEDS: VITAMIN D 1,000 INTERNATIONAL UNITS TABLET PO SCH (08:25)
[2019-12-02] MEDS: CALCIUM CARBONATE 500 MG CHEW U/D PO SCH ×2 (08:26→21:59)
[2019-12-02] MEDS: FERROUS SULFATE 325MG TAB PO SCH (08:26)
[2019-12-02] MEDS: NORTRIPTYLINE 10 MG CAP PO SCH ×2 (08:26→21:00)
[2019-12-02] MEDS: PRIMIDONE 250 MG TAB PO SCH ×3 (08:26→22:01)
[2019-12-02] MEDS: FLUCONAZOLE 100 MG TAB PO SCH ×2 (08:27→22:01)
--- NOTE | 2019-12-02 10:16 | REP ---
REASON: Dyspnea and cough. COMPARISON: Multiple, the latest 08/03/2019. There is persistent subsegmental atelectatic change seen as a curvilinear opacity in the left lung base status quo. There are interstitial fibrotic changes accentuated by technique. The technique utilized in obtaining the radiograph has magnified the cardiac silhouette and accentuated the interstitial markings. There is mild cardiomegaly accentuated by technique. No new abnormal lung opacity seem to have developed on this limited portable exam. There is no change in the osseous structures. IMPRESSION: Stable appearing chronic changes as described above. Electronically Signed by Aryan Chan DO 12/02/2019 05:21 P
[2019-12-02] MEDS: METOPROLOL SUCC *XL* 25MG TAB (TopROL *XL*) PO SCH (10:50)
[2019-12-02 14:00] VITALS: BP 136/69
[2019-12-02] MEDS: ADVAIR HFA 230/21MCG INHALER INH SCH ×2 (15:09→20:47)
[2019-12-02] MEDS: TIOTROPIUM INHALER/CAPSULE (SPIRIVA) INH SCH (15:09)
--- NOTE | 2019-12-02 15:51 | IPNPDOC ---
Text Note Date of Service The patient was seen on 12/02/19. NOTE Subjective: Patient is an 84-year-old female with a PMHx of Asthma / COPD, Chronic hypoxic respiratory failure (on 2L NC), Hx of Fungal lung infection (start on Fluconazole 2 weeks ago), Diastolic CHF, HTN, Hypothyroidism, Hx of DVT, who presented to the emergency room with complaints of weakness. Upon arrival to ER, patient was found to have an elevated creatinine and was admitted to the hospitalist service for further evaluation and treatment of acute kidney injury. Patient was seen and examined at the bedside. Patient denies any chest pain, pal pitations, has not expense, nausea, vomiting, abdominal pain, diarrhea, or urinary discomfort. Objective: Vitals (See below) General: Lying in bed, appears comfortable, Awake / Alert HEENT: NC, AT CVS: +S1S2 Lungs: Fair air entry b/l, diffuse rhonchi/wheezing appreciated bilaterally. No crackles Abdomen: Soft, ND, NT Extremities: Lower extremities are without any pitting edema, - Calf tenderness Assessment and plan: Generalized weakness - likely 2/2 to dehydration / Acute kidney injury - likely 2/2 pre-renal etiology - Cr baseline of 0.8-1.0; Cr on admission of 1.83 - Patient was instructed by her primary care provider to increase her diuretics to help with lower extremity edema 1 month ago - Will hold diuretic therapy - Avoid nephrotoxic medications - c/w IV fluid hydration - c/w PT; anticipate discharge tomorrow Fungal PNA - CXR with chronic findings - will continue with fluconazole (Liver function within normal limits) - Case discussed with pulmonology, will have outpatient follow-up within 7 days from discharge Chronic COPD/Asthma / Chronic hypoxic respiratory failure on 2 L NC Oxygen - Appears to be at baseline - Will adjust inhaled therapy to as close to outpatient regimen as possible Diastolic CHF - No evidence of exacerbation - BNP <200 - CXR 11/30: Stable appearing chronic changes as described above. - Hold diuretic therapy HTN - BP well controlled - Will continue to hold Torsemide - c/w Metoprolol Chronic neck pain / cervical dystonia - c/w Lidoderm patch CAD s/p PCI - Remains asymptomatic without chest pain, shortness breath or palpitations - c/w Metoprolol, Atorvastatin DLP - c/w Atorvastatin Hypothyroidism - c/w Levothyroxine DVT prophylaxis - c/w Heparin Disposition: - Will continue with IV fluid hydration - Anticipate discharge within 24 hours VSJuve, I+O VSJuve, I+O Laboratory Tests 12/01/19 17:00 12/02/19 05:43 Vital Signs Date Time Temp Pulse Resp B/P (MAP) Pulse Ox O2 Delivery O2 Flow Rate FiO2 12/02/19 14:00 98.0 64 18 136/69 (91) 98 Room Air 12/02/19 09:00 2.0 I&O- Last 24 Hours up to 6 AM 12/02/19 06:00 Intake Total 2050 ml Output Total 1050 ml Balance 1000 ml MARION MAGAÑA MD Dec 02, 2019 15:51
[2019-12-02] MEDS ORDERED: **NOTE PATIENT COMMENT** MISC XX SCH (18:00)
[2019-12-02 19:16] LABS: CALCIUM LEVEL 8.4 MG/DL (8.8-10.2); CREATININE FOR GFR 1.42 MG/DL (0.55-1.30); GLOMERULAR FILTRATION RATE 37.4 (>32); MAGNESIUM LEVEL 2.3 MG/DL (1.8-2.4); POTASSIUM SERUM 5.1 MEQ/L (3.5-5.1)
[2019-12-02] MEDS: ALBUTEROL SULFATE 2.5 MG/0.5 ML INH NEB SOLN INH SCH ×2 (20:00→20:56)
[2019-12-02] MEDS ORDERED: CAPSAICIN 0.025% CR 60 GM TOP SCH (21:00)
[2019-12-02] MEDS: ATORVASTATIN 20 MG TAB PO SCH (21:59)
[2019-12-02 22:00] VITALS: BP 139/62
[2019-12-02] MEDS: LATANOPROST 0.005% OPHTH SOLN 2.5 ML OU SCH (22:12)
[2019-12-03] MEDS ORDERED: DULoxetine 20 MG CAP (CYMBALTA) PO ONE (03:15)
[2019-12-03] MEDS ORDERED: oxyCODONE 5MG TAB PO ONE (03:30)
[2019-12-03] MEDS: NS 1,000 ML IV SCH (03:39)
[2019-12-03 06:00] VITALS: BP 136/66
[2019-12-03] MEDS: LEVOTHYROXINE 100MCG TABLET (0.1MG) PO SCH (06:12)
[2019-12-03 06:50] LABS: BASO % 0.3 % (0.0-1.0); EOS # 0.1 10^3/uL (0.0-0.5); EOS % 1.7 % (0.0-3.0); HEMATOCRIT 30.2 % (36.0-47.0); HEMOGLOBIN 9.3 g/dl (12.0-15.5); LYMPH # 0.8 10^3/uL (1.5-5.0); LYMPH % 11.8 % (24.0-44.0); MEAN CORPUSCULAR HEMOGLOBIN 32.9 pg (27.0-33.0); MEAN CORPUSCULAR HGB CONC 30.8 g/dl (32.0-36.5); MEAN CORPUSCULAR VOLUME 106.7 fl (80.0-96.0); MONO # 0.5 10^3/uL (0.0-0.8); NEUTROPHILS # 5.1 10^3/uL (1.5-8.5); NEUTROPHILS % 77.4 % (36.0-66.0); PLATELET COUNT, AUTOMATED 294 10^3/uL (150-450); RED BLOOD COUNT 2.83 10^6/uL (4.00-5.40); WHITE BLOOD COUNT 6.6 10^3/uL (4.0-10.0)
[2019-12-03] MEDS: ADVAIR HFA 230/21MCG INHALER INH SCH ×2 (07:01→18:09)
[2019-12-03] MEDS: TIOTROPIUM INHALER/CAPSULE (SPIRIVA) INH SCH (07:01)
[2019-12-03] MEDS: BUDESONIDE 0.5 MG/2 ML INHALATION SUSPENSION INH SCH ×2 (07:01→18:09)
[2019-12-03] MEDS: ALBUTEROL SULFATE 2.5 MG/0.5 ML INH NEB SOLN INH SCH ×2 (07:01→18:11)
[2019-12-03 08:01] LABS: BLOOD UREA NITROGEN 29 MG/DL (7-18); CALCIUM LEVEL 8.8 MG/DL (8.8-10.2); CARBON DIOXIDE LEVEL 25 MEQ/L (21-32); CHLORIDE LEVEL 105 MEQ/L (98-107); CREATININE FOR GFR 1.21 MG/DL (0.55-1.30); GLUCOSE, FASTING 90 MG/DL (70-100); MAGNESIUM LEVEL 2.2 MG/DL (1.8-2.4); POTASSIUM SERUM 3.9 MEQ/L (3.5-5.1); SODIUM LEVEL 138 MEQ/L (136-145)
[2019-12-03] MEDS: FLUCONAZOLE 100 MG TAB PO SCH ×2 (10:01→21:13)
[2019-12-03] MEDS: HEPARIN SOD (PORCINE) 5000UNITS/ML VIAL (J1644 PER 1000UNITS) SQ SCH ×2 (10:01→21:13)
[2019-12-03] MEDS: VITAMIN D 1,000 INTERNATIONAL UNITS TABLET PO SCH (10:01)
[2019-12-03] MEDS: FERROUS SULFATE 325MG TAB PO SCH (10:02)
[2019-12-03] MEDS: PRIMIDONE 250 MG TAB PO SCH ×3 (10:02→21:13)
[2019-12-03] MEDS: ASCORBIC ACID 500 MG TAB PO SCH (10:02)
[2019-12-03] MEDS: NORTRIPTYLINE 10 MG CAP PO SCH ×2 (10:02→21:00)
[2019-12-03] MEDS: CALCIUM CARBONATE 500 MG CHEW U/D PO SCH ×2 (10:02→21:13)
[2019-12-03] MEDS: METOPROLOL SUCC *XL* 25MG TAB (TopROL *XL*) PO SCH (10:05)
--- NOTE | 2019-12-03 10:36 | REP ---
CERVICAL SPINE, AP AND LATERAL: Three AP and lateral views of the cervical spine performed. This study is extremely limited. Odontoid is not visualized on the AP views. Patient refused to remove metallic earrings which overlie the C2 vertebral body on the lateral view. C6 and C7 are not well visualized on the lateral view. No gross fracture or dislocation is seen of the visualized osseous structures. There is no prevertebral soft tissue swelling. There does appear to be moderate disc space narrowing with subchondral sclerosis and spurring at the C5-6 disc space. There is also diffuse sclerosis and spurring as well as narrowing of the posterior facet joints. A more complete evaluation may be made with CT or MRI if clinically indicated. Electronically Signed by Evgeny Mccracken MD 12/04/2019 09:24 A
--- NOTE | 2019-12-03 12:31 | IPNPDOC ---
Text Note Date of Service The patient was seen on 12/03/19. NOTE Subjective: Patient is an 84-year-old female with a PMHx of Asthma / COPD, Chronic hypoxic respiratory failure (on 2L NC), Hx of Fungal lung infection (start on Fluconazole 2 weeks ago), Diastolic CHF, HTN, Hypothyroidism, Hx of DVT, who presented to the emergency room with complaints of weakness. Upon arrival to ER, patient was found to have an elevated creatinine and was admitted to the hospitalist service for further evaluation and treatment of acute kidney injury. Patient was seen and examined at the bedside. Patient reported that she was angr y because she was not given hydrocortisone yesterday evening. Patient denies any chest pain, shortness breath or palpitations. Denies nausea, vomiting, abdominal pain, diarrhea, or urinary discomfort. She denies any worsening of her lower extremity swelling. Patient has been working with physical therapy, however, has not yet cleared. Objective: Vitals (See below) General: Lying in bed, remains comfortable, Awake / Alert HEENT: NC, AT CVS: +S1S2 Lungs: Air entry is fair bilaterally. There does not appear to be any significant crackles. There are some rhonchi and wheezing appreciated diffusely Abdomen: Nondistended, nontender and remained soft Extremities: No significant pitting edema lower extremities, - Calf tenderness Assessment and plan: Generalized weakness - likely 2/2 to dehydration / Acute kidney injury - likely 2/2 pre-renal etiology - Cr baseline of 0.8-1.0; Cr on admission of 1.83 - Patient was instructed by her primary care provider to increase her diuretics to help with lower extremity edema 1 month ago - Diuretic therapy was held on admission - Avoid nephrotoxic medications - Discontinue IV fluid hydration; will resume diuresis within 24 hours - c/w PT and OT - patient may require additional rehabilitation moving for with Episodes of confusion - possibly 2/2 dementia on delirium - There does not appear to be any worsening of her infection - Hemodynamically stable and afebrile - No focal neurologic deficits - Thyroid function noted - Will check for reversible causes; RPR / Folate / B12 / Lyme - Will c/w PT and OT - may require rehabilitation moving forward Fungal PNA - Clinically patient denies any shortness of breath or changes in her baseline cough - CXR with chronic findings - Case discussed with pulmonology, will have outpatient follow-up within 7 days from discharge - c/w fluconazole (Liver function within normal limits) Chronic COPD/Asthma / Chronic hypoxic respiratory failure on 2 L NC Oxygen - Appears to be at baseline - c/w inhaled therapy as ordered Diastolic CHF - No evidence of exacerbation - BNP <200 - CXR 11/30: Stable appearing chronic changes as described above. - Hold resume diuresis tomorrow HTN - BP well controlled - c/w Metoprolol Chronic neck pain / cervical dystonia - Currently, patient appears to be comfortable - She had refused to remove jewelry during x-ray examination - XR cervical spine 12/01: This study is extremely limited. Odontoid is not visualized on the AP views. Patient refused to remove metallic earrings which overlie the C2 vertebral body on the lateral view. C6 and C7 are not well visualized on the lateral view. No gross fracture or dislocation is seen of the visualized osseous structures. There is no prevertebral soft tissue swelling. There does appear to be moderate disc space narrowing with subchondral sclerosis and spurring at the C5-6 disc space. There is also diffuse sclerosis and spurring as well as narrowing of the posterior facet joints. A more complete evaluation may be made with CT or MRI if clinically indicated. - c/w Lidoderm patch as needed and Tylenol for pain CAD s/p PCI - Remains asymptomatic without chest pain, shortness breath or palpitations - c/w Metoprolol, Atorvastatin DLP - c/w Atorvastatin Hypothyroidism - c/w Levothyroxine DVT prophylaxis - c/w Heparin Disposition: - Will DC IV fluids - Anticipate transition to ALC within 24/48 hours VS,Josebone, I+O VS, Fishbone, I+O Laboratory Tests 12/02/19 18:16 12/03/19 06:12 Vital Signs Date Time Temp Pulse Resp B/P (MAP) Pulse Ox O2 Delivery O2 Flow Rate FiO2 12/03/19 10:05 70 125/80 12/03/19 06:00 97.6 18 96 Nasal Cannula 2.0 I&O- Last 24 Hours up to 6 AM 12/03/19 06:00 Intake Total 2700 ml Output Total 1500 ml Balance 1200 ml MARION MAGAÑA MD Dec 03, 2019 12:31
[2019-12-03 14:00] VITALS: BP 138/68
[2019-12-03 16:03] LABS: VITAMIN B12 LEVEL 871 PG/ML
[2019-12-03 16:04] LABS: FOLATE 10.3 NG/ML
[2019-12-03] MEDS: ATORVASTATIN 20 MG TAB PO SCH (21:13)
[2019-12-03] MEDS: LATANOPROST 0.005% OPHTH SOLN 2.5 ML OU SCH (21:13)
[2019-12-03 22:00] VITALS: BP 141/65
[2019-12-04] MEDS: LEVOTHYROXINE 100MCG TABLET (0.1MG) PO SCH (05:34)
[2019-12-04 06:00] VITALS: BP 128/79
[2019-12-04 06:33] LABS: BASO % 0.2 % (0.0-1.0); EOS # 0.2 10^3/uL (0.0-0.5); EOS % 2.6 % (0.0-3.0); HEMATOCRIT 32.2 % (36.0-47.0); HEMOGLOBIN 10.1 g/dl (12.0-15.5); LYMPH # 1.1 10^3/uL (1.5-5.0); LYMPH % 18.4 % (24.0-44.0); MEAN CORPUSCULAR HEMOGLOBIN 33.8 pg (27.0-33.0); MEAN CORPUSCULAR HGB CONC 31.4 g/dl (32.0-36.5); MEAN CORPUSCULAR VOLUME 107.7 fl (80.0-96.0); MONO # 0.5 10^3/uL (0.0-0.8); MONO % 9.5 % (0.0-5.0); NEUTROPHILS # 3.9 10^3/uL (1.5-8.5); NEUTROPHILS % 68.6 % (36.0-66.0); PLATELET COUNT, AUTOMATED 303 10^3/uL (150-450); RED BLOOD COUNT 2.99 10^6/uL (4.00-5.40); WHITE BLOOD COUNT 5.7 10^3/uL (4.0-10.0)
[2019-12-04 07:04] LABS: CALCIUM LEVEL 9.1 MG/DL (8.8-10.2); CREATININE FOR GFR 1.02 MG/DL (0.55-1.30); GLOMERULAR FILTRATION RATE 54.8 (>32); MAGNESIUM LEVEL 2.1 MG/DL (1.8-2.4); POTASSIUM SERUM 4.7 MEQ/L (3.5-5.1)
[2019-12-04] MEDS: ALBUTEROL SULFATE 2.5 MG/0.5 ML INH NEB SOLN INH SCH ×2 (07:48→19:44)
[2019-12-04] MEDS: BUDESONIDE 0.5 MG/2 ML INHALATION SUSPENSION INH SCH ×2 (07:48→19:44)
[2019-12-04] MEDS: TIOTROPIUM INHALER/CAPSULE (SPIRIVA) INH SCH (07:48)
[2019-12-04] MEDS: ADVAIR HFA 230/21MCG INHALER INH SCH ×2 (07:50→19:44)
[2019-12-04] MEDS: NORTRIPTYLINE 10 MG CAP PO SCH ×3 (08:12→20:28)
[2019-12-04] MEDS: ASCORBIC ACID 500 MG TAB PO SCH (08:12)
[2019-12-04] MEDS: CALCIUM CARBONATE 500 MG CHEW U/D PO SCH ×2 (08:12→20:28)
[2019-12-04] MEDS: VITAMIN D 1,000 INTERNATIONAL UNITS TABLET PO SCH (08:14)
[2019-12-04] MEDS: TORSEMIDE 20 MG TAB PO SCH (08:14)
[2019-12-04] MEDS: METOPROLOL SUCC *XL* 25MG TAB (TopROL *XL*) PO SCH (08:14)
[2019-12-04] MEDS: PRIMIDONE 250 MG TAB PO SCH ×3 (08:15→20:28)
[2019-12-04] MEDS: FERROUS SULFATE 325MG TAB PO SCH (08:15)
[2019-12-04] MEDS: HEPARIN SOD (PORCINE) 5000UNITS/ML VIAL (J1644 PER 1000UNITS) SQ SCH ×2 (08:16→20:29)
[2019-12-04] MEDS: FLUCONAZOLE 100 MG TAB PO SCH ×2 (08:16→20:29)
--- NOTE | 2019-12-04 11:28 | IPNPDOC ---
Text Note Date of Service The patient was seen on 12/04/19. NOTE Subjective: Patient is an 84-year-old female with a PMHx of Asthma / COPD, Chronic hypoxic respiratory failure (on 2L NC), Hx of Fungal lung infection (start on Fluconazole 2 weeks ago), Diastolic CHF, HTN, Hypothyroidism, Hx of DVT, who presented to the emergency room with complaints of weakness. Upon arrival to ER, patient was found to have an elevated creatinine and was admitted to the hospitalist service for further evaluation and treatment of acute kidney injury. Patient was seen and examined at the bedside. Is seen sitting up in recliner garima ir, did not appear to be in any distress. Reports her breathing is always been fine. Denies any significant cough, chest pain, palpitations, has not experiencing nausea, vomiting, abdominal pain. Patient has been working with physical therapy, however, has not yet clear. Objective: Vitals (See below) General: Lying in recliner chair, appears comfortable, is awake and alert HEENT: NC, AT CVS: +S1S2 Lungs: There is fair air entry bilaterally, very faint wheezing appreciated bilaterally. No evidence of rhonchi or crackles Abdomen: Nondistended, nontender and remained soft Extremities: Again lower calories are without any edema, - Calf tenderness Neuro: 5/5 strength at upper / lower extremities bilaterally Assessment and plan: Generalized weakness - likely 2/2 to dehydration / Acute kidney injury - likely 2/2 pre-renal etiology - Cr baseline of 0.8-1.0; Cr on admission of 1.83; creatinine is now at baseline - Patient was instructed by her primary care provider to increase her diuretics to help with lower extremity edema 1 month ago - Diuretic therapy was held on admission - Avoid nephrotoxic medications - s/p IV fluid hydration - Will resume home diuresis at adjust dose - c/w PT and OT - patient may require additional rehabilitation moving for with Episodes of confusion - possibly 2/2 dementia on delirium - There does not appear to be any worsening of her infection - Hemodynamically stable and afebrile - No focal neurologic deficits - Thyroid function noted - Reversible causes; RPR / Folate / B12 - noted; Lyme pending - c/w PT and OT; until cleared for DC home Fungal PNA - Clinically patient denies any shortness of breath or changes in her baseline cough - CXR with chronic findings - Case discussed with pulmonology, will have outpatient follow-up within 7 days from discharge - c/w fluconazole (Liver function within normal limits) Chronic COPD/Asthma / Chronic hypoxic respiratory failure on 2 L NC Oxygen - Appears to be at baseline - c/w inhaled therapy as ordered Diastolic CHF - No evidence of exacerbation - BNP <200 - CXR 11/30: Stable appearing chronic changes as described above. - Will resume diuresis today HTN - BP well controlled - c/w Metoprolol Chronic neck pain / cervical dystonia - Currently, patient appears to be comfortable - She had refused to remove jewelry during x-ray examination - XR cervical spine 12/01: This study is extremely limited. Odontoid is not visualized on the AP views. Patient refused to remove metallic earrings which overlie the C2 vertebral body on the lateral view. C6 and C7 are not well visualized on the lateral view. No gross fracture or dislocation is seen of the visualized osseous structures. There is no prevertebral soft tissue swelling. There does appear to be moderate disc space narrowing with subchondral sclerosis and spurring at the C5-6 disc space. There is also diffuse sclerosis and spurring as well as narrowing of the posterior facet joints. A more complete evaluation may be made with CT or MRI if clinically indicated. - c/w Lidoderm patch as needed and Tylenol for pain CAD s/p PCI - Remains asymptomatic without chest pain, shortness breath or palpitations - c/w Metoprolol, Atorvastatin DLP - c/w Atorvastatin Hypothyroidism - c/w Levothyroxine DVT prophylaxis - c/w Heparin Disposition: - Needs PT / OT clearance - Will transition to ALC status today VS,Josebone, I+O VS, Fishbone, I+O Laboratory Tests 12/04/19 06:06 Vital Signs Date Time Temp Pulse Resp B/P (MAP) Pulse Ox O2 Delivery O2 Flow Rate FiO2 12/04/19 08:14 86 132/80 12/04/19 06:00 98.0 18 96 Nasal Cannula 2.0 I&O- Last 24 Hours up to 6 AM 12/04/19 06:00 Intake Total 1190 ml Output Total 650 ml Balance 540 ml MARION MAGAÑA MD Dec 04, 2019 11:28
[2019-12-04 14:00] VITALS: BP 151/72
[2019-12-04] MEDS: ATORVASTATIN 20 MG TAB PO SCH (20:28)
[2019-12-04] MEDS: LATANOPROST 0.005% OPHTH SOLN 2.5 ML OU SCH (20:29)
[2019-12-05] MEDS: LEVOTHYROXINE 100MCG TABLET (0.1MG) PO SCH (05:30)
[2019-12-05 06:00] VITALS: BP 141/85
[2019-12-05 06:28] LABS: BASO % 0.3 % (0.0-1.0); EOS # 0.1 10^3/uL (0.0-0.5); EOS % 1.8 % (0.0-3.0); HEMATOCRIT 30.8 % (36.0-47.0); HEMOGLOBIN 9.5 g/dl (12.0-15.5); LYMPH # 1.2 10^3/uL (1.5-5.0); LYMPH % 17.3 % (24.0-44.0); MEAN CORPUSCULAR HGB CONC 30.8 g/dl (32.0-36.5); MEAN CORPUSCULAR VOLUME 106.9 fl (80.0-96.0); MONO # 0.6 10^3/uL (0.0-0.8); MONO % 9.1 % (0.0-5.0); NEUTROPHILS # 4.8 10^3/uL (1.5-8.5); NEUTROPHILS % 70.9 % (36.0-66.0); PLATELET COUNT, AUTOMATED 301 10^3/uL (150-450); RED BLOOD COUNT 2.88 10^6/uL (4.00-5.40); WHITE BLOOD COUNT 6.8 10^3/uL (4.0-10.0)
[2019-12-05] MEDS: ACETAMINOPHEN 500 MG TAB PO PRN (06:40)
[2019-12-05 06:51] LABS: CREATININE FOR GFR 1.06 MG/DL (0.55-1.30); GLOMERULAR FILTRATION RATE 52.4 (>32); MAGNESIUM LEVEL 1.7 MG/DL (1.8-2.4); POTASSIUM SERUM 4.2 MEQ/L (3.5-5.1)
[2019-12-05] MEDS ORDERED: MAGNESIUM OXIDE 400 MG TAB (MAG-OX) PO ONE (07:15)
[2019-12-05] MEDS: PRIMIDONE 250 MG TAB PO SCH ×3 (08:00→21:33)
[2019-12-05] MEDS: ADVAIR HFA 230/21MCG INHALER INH SCH ×2 (08:19→19:33)
[2019-12-05] MEDS: ALBUTEROL SULFATE 2.5 MG/0.5 ML INH NEB SOLN INH SCH ×2 (08:19→19:34)
[2019-12-05] MEDS: BUDESONIDE 0.5 MG/2 ML INHALATION SUSPENSION INH SCH ×2 (08:19→19:34)
[2019-12-05] MEDS: TIOTROPIUM INHALER/CAPSULE (SPIRIVA) INH SCH (08:20)
[2019-12-05] MEDS: NORTRIPTYLINE 10 MG CAP PO SCH ×2 (09:00→21:00)
[2019-12-05] MEDS: HEPARIN SOD (PORCINE) 5000UNITS/ML VIAL (J1644 PER 1000UNITS) SQ SCH ×2 (09:40→21:34)
[2019-12-05] MEDS: FLUCONAZOLE 100 MG TAB PO SCH ×2 (09:42→21:33)
[2019-12-05] MEDS: VITAMIN D 1,000 INTERNATIONAL UNITS TABLET PO SCH (09:42)
[2019-12-05] MEDS: METOPROLOL SUCC *XL* 25MG TAB (TopROL *XL*) PO SCH (09:42)
[2019-12-05] MEDS: TORSEMIDE 20 MG TAB PO SCH (09:42)
[2019-12-05] MEDS: ASCORBIC ACID 500 MG TAB PO SCH (09:42)
[2019-12-05] MEDS: FERROUS SULFATE 325MG TAB PO SCH (09:42)
[2019-12-05] MEDS: CALCIUM CARBONATE 500 MG CHEW U/D PO SCH ×2 (09:42→21:33)
[2019-12-05 16:50] LABS: Lyme Disease IgG/IgM Antibodie <0.91 ISR (0.00-0.90); Lyme Disease IgM Ab Quantitati <0.80 index (0.00-0.79)
[2019-12-05] MEDS: ATORVASTATIN 20 MG TAB PO SCH (21:33)
[2019-12-05] MEDS: LATANOPROST 0.005% OPHTH SOLN 2.5 ML OU SCH (21:34)
[2019-12-06] MEDS: ACETAMINOPHEN 500 MG TAB PO PRN ×2 (04:55→19:46)
[2019-12-06] MEDS: LEVOTHYROXINE 100MCG TABLET (0.1MG) PO SCH (05:48)
[2019-12-06 06:00] VITALS: BP 106/69
[2019-12-06 06:33] LABS: BASO % 0.3 % (0.0-1.0); EOS # 0.1 10^3/uL (0.0-0.5); EOS % 1.6 % (0.0-3.0); HEMATOCRIT 30.5 % (36.0-47.0); HEMOGLOBIN 9.7 g/dl (12.0-15.5); LYMPH % 12.9 % (24.0-44.0); MEAN CORPUSCULAR HEMOGLOBIN 33.7 pg (27.0-33.0); MEAN CORPUSCULAR HGB CONC 31.8 g/dl (32.0-36.5); MEAN CORPUSCULAR VOLUME 105.9 fl (80.0-96.0); MONO # 0.7 10^3/uL (0.0-0.8); MONO % 8.7 % (0.0-5.0); NEUTROPHILS # 5.9 10^3/uL (1.5-8.5); PLATELET COUNT, AUTOMATED 335 10^3/uL (150-450); RED BLOOD COUNT 2.88 10^6/uL (4.00-5.40); WHITE BLOOD COUNT 7.7 10^3/uL (4.0-10.0)
[2019-12-06 06:42] LABS: CALCIUM LEVEL 9.2 MG/DL (8.8-10.2); CREATININE FOR GFR 1.22 MG/DL (0.55-1.30); GLOMERULAR FILTRATION RATE 44.6 (>32); MAGNESIUM LEVEL 1.8 MG/DL (1.8-2.4); POTASSIUM SERUM 4.1 MEQ/L (3.5-5.1)
[2019-12-06] MEDS: ALBUTEROL SULFATE 2.5 MG/0.5 ML INH NEB SOLN INH SCH (07:18)
[2019-12-06] MEDS: TIOTROPIUM INHALER/CAPSULE (SPIRIVA) INH SCH (07:18)
[2019-12-06] MEDS: ADVAIR HFA 230/21MCG INHALER INH SCH ×2 (07:18→18:06)
[2019-12-06] MEDS: BUDESONIDE 0.5 MG/2 ML INHALATION SUSPENSION INH SCH (07:19)
[2019-12-06] MEDS: FLUCONAZOLE 100 MG TAB PO SCH ×2 (08:20→20:51)
[2019-12-06] MEDS: CALCIUM CARBONATE 500 MG CHEW U/D PO SCH ×2 (08:20→20:52)
[2019-12-06] MEDS: VITAMIN D 1,000 INTERNATIONAL UNITS TABLET PO SCH (08:21)
[2019-12-06] MEDS: ASCORBIC ACID 500 MG TAB PO SCH (08:22)
[2019-12-06] MEDS: TORSEMIDE 20 MG TAB PO SCH (08:22)
[2019-12-06] MEDS: HEPARIN SOD (PORCINE) 5000UNITS/ML VIAL (J1644 PER 1000UNITS) SQ SCH ×2 (08:22→20:51)
[2019-12-06] MEDS: FERROUS SULFATE 325MG TAB PO SCH (08:22)
[2019-12-06] MEDS: METOPROLOL SUCC *XL* 25MG TAB (TopROL *XL*) PO SCH (08:23)
[2019-12-06] MEDS: PRIMIDONE 250 MG TAB PO SCH ×3 (08:23→20:52)
[2019-12-06] MEDS: NORTRIPTYLINE 10 MG CAP PO SCH ×2 (08:26→20:52)
[2019-12-06] MEDS: ATORVASTATIN 20 MG TAB PO SCH (20:51)
[2019-12-06] MEDS: LATANOPROST 0.005% OPHTH SOLN 2.5 ML OU SCH (20:52)
[2019-12-07] MEDS: LEVOTHYROXINE 100MCG TABLET (0.1MG) PO SCH (05:29)
[2019-12-07 06:00] VITALS: BP 111/70
[2019-12-07] MEDS: TIOTROPIUM INHALER/CAPSULE (SPIRIVA) INH SCH (07:20)
[2019-12-07] MEDS: ADVAIR HFA 230/21MCG INHALER INH SCH ×2 (07:21→20:14)
[2019-12-07] MEDS: ALBUTEROL SULFATE 2.5 MG/0.5 ML INH NEB SOLN INH SCH ×2 (07:21→20:00)
[2019-12-07] MEDS: BUDESONIDE 0.5 MG/2 ML INHALATION SUSPENSION INH SCH ×2 (07:21→20:14)
[2019-12-07 07:25] LABS: BASO % 0.3 % (0.0-1.0); EOS # 0.1 10^3/uL (0.0-0.5); EOS % 1.7 % (0.0-3.0); HEMATOCRIT 32.5 % (36.0-47.0); HEMOGLOBIN 10.5 g/dl (12.0-15.5); LYMPH # 1.1 10^3/uL (1.5-5.0); LYMPH % 13.4 % (24.0-44.0); MEAN CORPUSCULAR HEMOGLOBIN 33.4 pg (27.0-33.0); MEAN CORPUSCULAR HGB CONC 32.3 g/dl (32.0-36.5); MEAN CORPUSCULAR VOLUME 103.5 fl (80.0-96.0); MONO # 0.8 10^3/uL (0.0-0.8); MONO % 9.7 % (0.0-5.0); NEUTROPHILS # 5.8 10^3/uL (1.5-8.5); NEUTROPHILS % 73.2 % (36.0-66.0); PLATELET COUNT, AUTOMATED 286 10^3/uL (150-450); RED BLOOD COUNT 3.14 10^6/uL (4.00-5.40); WHITE BLOOD COUNT 7.9 10^3/uL (4.0-10.0)
[2019-12-07 07:36] LABS: CALCIUM LEVEL 9.4 MG/DL (8.8-10.2); CREATININE FOR GFR 1.57 MG/DL (0.55-1.30); GLOMERULAR FILTRATION RATE 33.3 (>32); MAGNESIUM LEVEL 1.8 MG/DL (1.8-2.4); POTASSIUM SERUM 4.4 MEQ/L (3.5-5.1)
[2019-12-07] MEDS: FERROUS SULFATE 325MG TAB PO SCH (08:59)
[2019-12-07] MEDS: PRIMIDONE 250 MG TAB PO SCH ×3 (08:59→21:27)
[2019-12-07] MEDS: VITAMIN D 1,000 INTERNATIONAL UNITS TABLET PO SCH (08:59)
[2019-12-07] MEDS: CALCIUM CARBONATE 500 MG CHEW U/D PO SCH ×2 (08:59→21:26)
[2019-12-07] MEDS: HEPARIN SOD (PORCINE) 5000UNITS/ML VIAL (J1644 PER 1000UNITS) SQ SCH ×2 (08:59→21:28)
[2019-12-07] MEDS: ASCORBIC ACID 500 MG TAB PO SCH (08:59)
[2019-12-07] MEDS: NORTRIPTYLINE 10 MG CAP PO SCH ×2 (09:00→21:00)
[2019-12-07] MEDS: ACETAMINOPHEN 500 MG TAB PO PRN ×2 (09:00→19:11)
[2019-12-07] MEDS: TORSEMIDE 20 MG TAB PO SCH (09:00)
[2019-12-07] MEDS: METOPROLOL SUCC *XL* 25MG TAB (TopROL *XL*) PO SCH (09:00)
[2019-12-07] MEDS: FLUCONAZOLE 100 MG TAB PO SCH ×2 (09:00→21:26)
[2019-12-07] MEDS: DOCUSATE SODIUM 100 MG CAP PO SCH ×2 (11:56→21:26)
[2019-12-07] MEDS: ATORVASTATIN 20 MG TAB PO SCH (21:27)
[2019-12-07] MEDS: LATANOPROST 0.005% OPHTH SOLN 2.5 ML OU SCH (21:28)
[2019-12-08] MEDS: ACETAMINOPHEN 500 MG TAB PO PRN ×2 (03:12→18:16)
[2019-12-08 06:00] VITALS: BP 123/66
[2019-12-08 06:01] LABS: BASO % 0.2 % (0.0-1.0); EOS # 0.1 10^3/uL (0.0-0.5); EOS % 1.6 % (0.0-3.0); HEMATOCRIT 28.4 % (36.0-47.0); HEMOGLOBIN 9.1 g/dl (12.0-15.5); LYMPH # 0.9 10^3/uL (1.5-5.0); LYMPH % 10.7 % (24.0-44.0); MEAN CORPUSCULAR HEMOGLOBIN 33.7 pg (27.0-33.0); MEAN CORPUSCULAR VOLUME 105.2 fl (80.0-96.0); MONO # 0.8 10^3/uL (0.0-0.8); MONO % 8.9 % (0.0-5.0); NEUTROPHILS # 6.6 10^3/uL (1.5-8.5); NEUTROPHILS % 77.3 % (36.0-66.0); PLATELET COUNT, AUTOMATED 273 10^3/uL (150-450); WHITE BLOOD COUNT 8.6 10^3/uL (4.0-10.0)
[2019-12-08] MEDS: LEVOTHYROXINE 100MCG TABLET (0.1MG) PO SCH (06:13)
[2019-12-08 06:28] LABS: CALCIUM LEVEL 9.3 MG/DL (8.8-10.2); CREATININE FOR GFR 1.22 MG/DL (0.55-1.30); GLOMERULAR FILTRATION RATE 44.6 (>32); MAGNESIUM LEVEL 1.8 MG/DL (1.8-2.4); POTASSIUM SERUM 4.1 MEQ/L (3.5-5.1)
[2019-12-08] MEDS: TIOTROPIUM INHALER/CAPSULE (SPIRIVA) INH SCH (08:14)
[2019-12-08] MEDS: ADVAIR HFA 230/21MCG INHALER INH SCH ×2 (08:14→20:00)
[2019-12-08] MEDS: ALBUTEROL SULFATE 2.5 MG/0.5 ML INH NEB SOLN INH SCH (08:14)
[2019-12-08] MEDS: BUDESONIDE 0.5 MG/2 ML INHALATION SUSPENSION INH SCH ×2 (08:15→20:01)
[2019-12-08] MEDS: NORTRIPTYLINE 10 MG CAP PO SCH ×2 (09:00→21:00)
[2019-12-08] MEDS: MIRALAX *UNIT DOSE* 17GM PACKET PO SCH (09:00)
[2019-12-08] MEDS: ASCORBIC ACID 500 MG TAB PO SCH (09:21)
[2019-12-08] MEDS: FERROUS SULFATE 325MG TAB PO SCH (09:21)
[2019-12-08] MEDS: VITAMIN D 1,000 INTERNATIONAL UNITS TABLET PO SCH (09:21)
[2019-12-08] MEDS: PRIMIDONE 250 MG TAB PO SCH ×3 (09:21→21:04)
[2019-12-08] MEDS: DOCUSATE SODIUM 100 MG CAP PO SCH ×2 (09:21→21:03)
[2019-12-08] MEDS: CALCIUM CARBONATE 500 MG CHEW U/D PO SCH ×2 (09:21→21:04)
[2019-12-08] MEDS: FLUCONAZOLE 100 MG TAB PO SCH ×2 (09:22→21:03)
[2019-12-08] MEDS: TORSEMIDE 20 MG TAB PO SCH (09:22)
[2019-12-08] MEDS: METOPROLOL SUCC *XL* 25MG TAB (TopROL *XL*) PO SCH (09:22)
[2019-12-08] MEDS: HEPARIN SOD (PORCINE) 5000UNITS/ML VIAL (J1644 PER 1000UNITS) SQ SCH ×2 (09:23→21:04)
[2019-12-08] MEDS: LATANOPROST 0.005% OPHTH SOLN 2.5 ML OU SCH (21:04)
[2019-12-08] MEDS: ATORVASTATIN 20 MG TAB PO SCH (21:04)
[2019-12-09 06:00] VITALS: BP 130/75
[2019-12-09] MEDS: LEVOTHYROXINE 100MCG TABLET (0.1MG) PO SCH (06:20)
[2019-12-09 07:11] LABS: BASO % 0.3 % (0.0-1.0); EOS # 0.1 10^3/uL (0.0-0.5); EOS % 1.6 % (0.0-3.0); HEMATOCRIT 30.8 % (36.0-47.0); HEMOGLOBIN 9.6 g/dl (12.0-15.5); LYMPH # 1.1 10^3/uL (1.5-5.0); LYMPH % 14.7 % (24.0-44.0); MEAN CORPUSCULAR HGB CONC 31.2 g/dl (32.0-36.5); MEAN CORPUSCULAR VOLUME 105.8 fl (80.0-96.0); MONO # 0.7 10^3/uL (0.0-0.8); MONO % 9.2 % (0.0-5.0); NEUTROPHILS # 5.5 10^3/uL (1.5-8.5); NEUTROPHILS % 72.5 % (36.0-66.0); PLATELET COUNT, AUTOMATED 300 10^3/uL (150-450); RED BLOOD COUNT 2.91 10^6/uL (4.00-5.40); WHITE BLOOD COUNT 7.6 10^3/uL (4.0-10.0)
[2019-12-09 07:33] LABS: CALCIUM LEVEL 9.8 MG/DL (8.8-10.2); CREATININE FOR GFR 1.27 MG/DL (0.55-1.30); GLOMERULAR FILTRATION RATE 42.6 (>32); POTASSIUM SERUM 4.4 MEQ/L (3.5-5.1)
[2019-12-09] MEDS: ALBUTEROL SULFATE 2.5 MG/0.5 ML INH NEB SOLN INH SCH ×2 (08:43→20:02)
[2019-12-09] MEDS: TIOTROPIUM INHALER/CAPSULE (SPIRIVA) INH SCH (08:44)
[2019-12-09] MEDS: ADVAIR HFA 230/21MCG INHALER INH SCH ×2 (08:44→20:03)
[2019-12-09] MEDS: BUDESONIDE 0.5 MG/2 ML INHALATION SUSPENSION INH SCH ×2 (08:44→20:01)
[2019-12-09] MEDS: NORTRIPTYLINE 10 MG CAP PO SCH ×2 (09:00→21:54)
[2019-12-09] MEDS: MIRALAX *UNIT DOSE* 17GM PACKET PO SCH (09:00)
[2019-12-09] MEDS: FLUCONAZOLE 100 MG TAB PO SCH ×2 (10:06→21:54)
[2019-12-09] MEDS: ASCORBIC ACID 500 MG TAB PO SCH (10:06)
[2019-12-09] MEDS: FERROUS SULFATE 325MG TAB PO SCH (10:06)
[2019-12-09] MEDS: DOCUSATE SODIUM 100 MG CAP PO SCH ×2 (10:06→21:53)
[2019-12-09] MEDS: PRIMIDONE 250 MG TAB PO SCH ×3 (10:06→21:54)
[2019-12-09] MEDS: TORSEMIDE 20 MG TAB PO SCH (10:07)
[2019-12-09] MEDS: CALCIUM CARBONATE 500 MG CHEW U/D PO SCH ×2 (10:07→21:00)
[2019-12-09] MEDS: METOPROLOL SUCC *XL* 25MG TAB (TopROL *XL*) PO SCH (10:07)
[2019-12-09] MEDS: HEPARIN SOD (PORCINE) 5000UNITS/ML VIAL (J1644 PER 1000UNITS) SQ SCH ×2 (10:08→21:54)
[2019-12-09] MEDS: VITAMIN D 1,000 INTERNATIONAL UNITS TABLET PO SCH (10:08)
[2019-12-09] MEDS ORDERED: LACTULOSE 20 GM/30 ML SYRUP UD PO ONE (11:00)
[2019-12-09] MEDS: ACETAMINOPHEN 500 MG TAB PO PRN (13:15)
--- NOTE | 2019-12-09 21:11 | REPVR ---
PROCEDURE INFORMATION: Exam: CT Head Without Contrast Exam date and time: 12/09/2019 8:41 PM Age: 84 years old Clinical indication: Speech disturbance; Slurred speech TECHNIQUE: Imaging protocol: Computed tomography of the head without contrast. Radiation optimization: All CT scans at this facility use at least one of these dose optimization techniques: automated exposure control; mA and/or kV adjustment per patient size (includes targeted exams where dose is matched to clinical indication); or iterative reconstruction. COMPARISON: CT Head without contrast 06/17/2019 6:44 PM FINDINGS: Brain: Mild cerebral volume loss. No hemorrhage. Unremarkable white matter. No mass effect. Ventricles: Normal. No ventriculomegaly. Bones/joints: Unremarkable. No acute fracture. Sinuses: Visualized sinuses are unremarkable. No fluid levels. Mastoid air cells: Visualized mastoid air cells are well aerated. Soft tissues: Unremarkable. IMPRESSION: No acute intracranial abnormality. Electronically signed by: Kip Holliday On 12/09/2019 21:11:11 PM
[2019-12-09] MEDS: ATORVASTATIN 20 MG TAB PO SCH (21:53)
[2019-12-09] MEDS: SENOKOT S TAB PO SCH (21:53)
[2019-12-09] MEDS: LATANOPROST 0.005% OPHTH SOLN 2.5 ML OU SCH (21:55)
[2019-12-10] MEDS: LEVOTHYROXINE 100MCG TABLET (0.1MG) PO SCH (05:48)
[2019-12-10 06:00] VITALS: BP 138/76
[2019-12-10] MEDS: TIOTROPIUM INHALER/CAPSULE (SPIRIVA) INH SCH (07:21)
[2019-12-10] MEDS: ALBUTEROL SULFATE 2.5 MG/0.5 ML INH NEB SOLN INH SCH ×3 (07:24→20:07)
[2019-12-10] MEDS: ADVAIR HFA 230/21MCG INHALER INH SCH ×2 (07:24→20:01)
[2019-12-10] MEDS: BUDESONIDE 0.5 MG/2 ML INHALATION SUSPENSION INH SCH ×3 (07:24→20:07)
[2019-12-10] MEDS: MIRALAX *UNIT DOSE* 17GM PACKET PO SCH ×2 (09:00→09:33)
[2019-12-10] MEDS: NORTRIPTYLINE 10 MG CAP PO SCH ×2 (09:34→21:13)
[2019-12-10] MEDS: VITAMIN D 1,000 INTERNATIONAL UNITS TABLET PO SCH (09:34)
[2019-12-10] MEDS: CALCIUM CARBONATE 500 MG CHEW U/D PO SCH ×2 (09:34→21:13)
[2019-12-10] MEDS: ASCORBIC ACID 500 MG TAB PO SCH (09:34)
[2019-12-10] MEDS: FERROUS SULFATE 325MG TAB PO SCH (09:34)
[2019-12-10] MEDS: METOPROLOL SUCC *XL* 25MG TAB (TopROL *XL*) PO SCH (09:34)
[2019-12-10] MEDS: PRIMIDONE 250 MG TAB PO SCH ×3 (09:35→21:13)
[2019-12-10] MEDS: DOCUSATE SODIUM 100 MG CAP PO SCH ×2 (09:35→21:14)
[2019-12-10] MEDS: TORSEMIDE 20 MG TAB PO SCH (09:35)
[2019-12-10] MEDS: FLUCONAZOLE 100 MG TAB PO SCH ×2 (09:35→21:13)
[2019-12-10] MEDS: HEPARIN SOD (PORCINE) 5000UNITS/ML VIAL (J1644 PER 1000UNITS) SQ SCH ×2 (09:36→21:12)
[2019-12-10] MEDS ORDERED: BISACODYL 10 MG SUPP PR PRN (11:15)
[2019-12-10] MEDS ORDERED: LACTULOSE 20 GM/30 ML SYRUP UD PO ONE (11:30)
[2019-12-10] MEDS ORDERED: LACTULOSE 20 GM/30 ML SYRUP UD PO PRN (11:45)
--- NOTE | 2019-12-10 18:54 | IPNPDOC ---
Date Seen The patient was seen on 12/10/19. Progress Note SUBJECTIVE: There was some concern by family due to increased memory loss, slurred speech at times. CT head neg for acute intracranial abnormalities. Requesting records from neurologist in [place]-family is to give us name to get that information here. Concern by PT that patient is not always participating at maximum potential. Constipation has been an issue, meds modified again today to encourage bowel movement. Cough is chronic, shortness of breath is not worsened from baseline. Denies chest pain, n/v, fevers or chills. OBJECTIVE: VITAL SIGNS: Please see below PHYSICAL EXAMINATION: General: Lying in recliner chair, appears comfortable, is awake and alert HEENT: NC, AT CVS: +S1S2 Lungs: There is fair air entry bilaterally, very faint wheezing appreciated bilaterally. No evidence of rhonchi or crackles Abdomen: Nondistended, nontender and remained soft Extremities: Again lower calories are without any edema, - Calf tenderness Neuro: 5/5 strength at upper / lower extremities bilaterally LABORATORY: labs from 12/09/19 unremarkable. IMAGING: CT head 12/09/19: no acute intracranial abnormality ASSESSMENT: 84 y/o F with extensive PMH admitted for increased generalized weakness, memory loss, acute kidney injury-now resolved. PLAN: 1. Generalized weakness likely 2/2 to dehydration on initial presentation which has resolved, hx of chronic physical deconditioning possibly 2/2 to dementia - At times participates with PT, but there is a concern that her potential is not maximized during sessions at times by choice - Per PT notes "Pt demonstrates a continued functional regression requiring greatly increased time to ambulate a decreased distance. Pt does present with inconsistent deficits; ie.reports no ability to lift the R LE while demonstrating. Pt states "I can't do this anymore. I can't go home again." Lengthy discussion after mobility in regards to d/c plan as pt was denied to rehab. Pt continues to refuse SNF placement. States she cannot afford 24/7 care or even daytime care. States she will not move to [place] to live with a daughter. Much education regarding the need for a d/c plan to ensure mobility goals remain appropriate. Pt tearful but receptive, states she will talk with her family." - Safe to continue rehab only; would require 24/7 or full daytime care to return home. - Discharge plan is not yet decided. - C/w PT/OT, optimizing nutrition 2. Memory loss/ confusion possibly 2/2 dementia - There does not appear to be any worsening of her infection but family did comment on memory issues appearing worsened and slurred speech. No focal deficits on exam by myself - CT head 12/09/19: No acute findings to suspect stroke - Hemodynamically stable and afebrile - No focal neurologic deficits - TSH/ RPR / Folate / B12 - normal or neg; Lyme neg - c/w PT and OT - F/u neurology notes from [place] to see if there was any mention of mental decline during their visit. Daughter does not remember this being discussed. 3. Fungal PNA - Clinically patient denies any shortness of breath or changes in her baseline cough - CXR with chronic findings - Case discussed with pulmonology, will have outpatient follow-up within 7 days from discharge - c/w fluconazole (Liver function within normal limits) 4. Chronic COPD/Asthma / Chronic hypoxic respiratory failure on 2 L NC Oxygen - Appears to be at baseline - c/w inhaled therapy as ordered 5. Diastolic CHF - No evidence of exacerbation - BNP <200 - CXR 11/30: Stable appearing chronic changes as described above. - C/w diuretic, BB 6. HTN - BP well controlled - c/w Metoprolol 7. Chronic neck pain / cervical dystonia - Currently, patient appears to be comfortable - She had refused to remove jewelry during x-ray examination - XR cervical spine 12/01: This study is extremely limited. Odontoid is not visualized on the AP views. Patient refused to remove metallic earrings which overlie the C2 vertebral body on the lateral view. C6 and C7 are not well visualized on the lateral view. No gross fracture or dislocation is seen of the visualized osseous structures. There is no prevertebral soft tissue swelling. There does appear to be moderate disc space narrowing with subchondral sclerosis and spurring at the C5-6 disc space. There is also diffuse sclerosis and spurring as well as narrowing of the posterior facet joints. A more complete evaluation may be made with CT or MRI if clinically indicated. - c/w Lidoderm patch as needed and Tylenol for pain 8. CAD s/p PCI - Remains asymptomatic without chest pain, shortness breath or palpitations - c/w Metoprolol, Atorvastatin 9. DLP - c/w Atorvastatin 10. Hypothyroidism - c/w Levothyroxine 11. DVT prophylaxis - c/w Heparin DISPOSITION: Discharge plan is currently being worked on. Will require 24 hour services either at home or in facility. Her family is very involved in her care and has been in constant touch with social work. VS, I&O, 24H, Fishbone Vital Signs/I&O Vital Signs Date Time Temp Pulse Resp B/P (MAP) Pulse Ox O2 Delivery O2 Flow Rate FiO2 12/10/19 09:34 80 120/57 12/10/19 09:00 2.0 12/10/19 06:00 97.3 20 99 Nasal Cannula I&O- Last 24 Hours up to 6 AM 12/10/19 06:00 Intake Total 1380 ml Output Total 1975 ml Balance -595 ml Laboratory Data Microbiology Microbiology 12/01/19 Blood Culture - Final, Complete NO GROWTH AFTER 5 DAYS 12/01/19 Blood Culture - Final, Complete NO GROWTH AFTER 5 DAYS 12/01/19 Respiratory Virus Panel (PCR) (MARIE) - Final, Complete Current Medications Current Medications Medications (Trade) Dose Ordered Sig/Geni Route PRN Reason Start Time Stop Time Status Last Admin Dose Admin Acetaminophen (Tylenol Tab) 1,000 mg Q8HP PRN PO PAIN / FEVER 12/01/19 19:45 12/09/19 13:15 Albuterol Sulfate (Proventil Neb) 2.5 mg Q2HP PRN NEB SOB/WHEEZING 12/01/19 19:45 Albuterol Sulfate (Proventil Neb) 2.5 mg RBID INH 12/02/19 20:00 12/09/19 20:02 Albuterol/ Ipratropium (Duoneb (Ipr 0.5mg/Alb 2.5mg)) 3 ml RQ6H NEB 12/01/19 20:00 12/02/19 12:29 DC 12/02/19 07:38 Ascorbic Acid (Vitamin C) 500 mg DAILY PO 12/02/19 09:00 12/10/19 09:34 Atorvastatin Calcium (Lipitor) 40 mg QHS PO 12/01/19 21:00 12/09/19 21:53 Bisacodyl (Dulcolax Suppository) 10 mg DAILY PRN [place] CONSTIPATION 12/01/19 19:45 12/09/19 10:25 DC Bisacodyl (Dulcolax Suppository) 10 mg DAILYPRN PRN [place] CONSTIPATION 12/10/19 11:15 Budesonide (Pulmicort) 0.5 mg RBID INH 12/01/19 20:00 12/09/19 20:01 Calcium Carbonate (Tums) 500 mg BID PO 12/01/19 21:00 12/10/19 09:34 Capsaicin (Zostrix 0.025%) APPLY TO AFFECTED AREA... BID TOP 12/02/19 21:00 12/03/19 06:07 DC 12/02/19 22:24 Docusate Sodium (Colace) 100 mg BID PO 12/07/19 09:00 12/10/19 09:35 Ferrous Sulfate (Ferrous Sulfate) 325 mg DAILY PO 12/02/19 09:00 12/10/19 09:34 Fluconazole (Diflucan Tablet) 200 mg BID PO 12/01/19 21:00 12/10/19 09:35 Heparin Sodium (Porcine) (Heparin) 5,000 units Q12H SQ 12/01/19 21:00 12/10/19 09:36 Home Med (Med Rec Complete!) ASDIRECTED XX 12/01/19 19:45 12/01/19 19:40 DC Lactulose (Cephulac) 15 ml DAILYPRN PRN PO CONSTIPATION 12/10/19 11:45 Latanoprost (Xalatan 0.005% Op Soln) 1 drop QHS OU 12/01/19 21:00 12/09/19 21:55 Levothyroxine Sodium (Synthroid) 100 mcg DAILY@0600 PO 12/02/19 06:00 12/10/19 05:48 Lidocaine (Lidoderm Patch) 1 patch DAILY@0600 TD 12/02/19 06:00 12/03/19 06:07 DC 12/02/19 05:15 Magnesium Hydroxide (Milk Of Magnesia) 15 ml DAILYPRN PRN PO CONSTIPATION 12/09/19 10:30 Magnesium Hydroxide (Milk Of Magnesia) 15 ml QHS PRN PO CONSTIPATION 12/01/19 19:45 12/09/19 10:25 DC Metoprolol Succinate (TopROL XL) 25 mg DAILY PO 12/02/19 09:00 12/10/19 09:34 Non-Formulary Medication ( See Comment Field Below ) REMOVE LIDODERM PATCH f... DAILY@1800 XX 12/02/19 18:00 12/03/19 06:11 DC 12/02/19 18:34 Nortriptyline HCl (Pamelor) 10 mg BID PO 12/01/19 21:00 12/10/19 09:34 Nystatin (Mycostatin Powder, Nystop) APPLY TO ABDOMINAL FOLDS DAILYPRN PRN TOP RASH 12/01/19 19:45 Polyethylene Glycol (Miralax) 1 pkt DAILY PO 12/08/19 09:00 12/10/19 11:34 DC Primidone (Mysoline) 250 mg TID@0800,1200,2100 PO 12/01/19 21:00 12/10/19 12:39 Salmeterol Xinafoate/ Fluticasone (Advair Hfa 230/ 21) 2 puff RBID INH 12/02/19 08:00 12/10/19 07:24 Senna/Docusate Sodium (Senokot S) 2 tab BID PRN PO CONSTIPATION 12/01/19 19:45 12/09/19 10:25 DC Senna/Docusate Sodium (Senokot S) 2 tab QHS PO 12/09/19 21:00 12/09/19 21:53 Sodium Chloride 1,000 ml @ 100 mls/hr Q10H IV 12/01/19 19:30 12/03/19 08:39 DC 12/03/19 03:39 Tiotropium [place] (Spiriva Handihaler) 1 inhalation DAILY@08 INH 12/02/19 08:00 12/10/19 07:21 Torsemide (Demadex) 40 mg DAILY PO 12/04/19 09:00 12/10/19 09:35 Vitamin D (Vitamin D) 2,000 units DAILY PO 12/02/19 09:00 12/10/19 09:34 Allergies Coded Allergies: ibuprofen (Verified Allergy, Severe, respiratory distress, 08/03/19) Cephalosporins (Verified Allergy, Intermediate, SEVERE HIVES, 08/03/19) iodine (Verified Allergy, Intermediate, SEVERE HIVES, 08/03/19) tetracycline (Verified Allergy, Intermediate, hives, 08/03/19) cephalexin (Verified Allergy, Mild, RASH (FROM kEFLEX), 08/03/19) vancomycin (Verified Allergy, Mild, facial and arm rash and itching, 08/04/19) ciprofloxacin (Verified Allergy, Unknown, 08/03/19) NSAIDS (Non-Steroidal Anti-Inflamma (Verified Adverse Reaction, Severe, unable to take d/t asthma, 12/01/19) morphine (Verified Adverse Reaction, Intermediate, HALLUCINATIONS, 08/03/19) Genie Garrett MD Dec 10, 2019 18:54
[2019-12-10] MEDS: ATORVASTATIN 20 MG TAB PO SCH (21:12)
[2019-12-10] MEDS: LATANOPROST 0.005% OPHTH SOLN 2.5 ML OU SCH (21:13)
[2019-12-10] MEDS: SENOKOT S TAB PO SCH (21:14)
[2019-12-11] MEDS: ACETAMINOPHEN 500 MG TAB PO PRN (00:08)
[2019-12-11 06:00] VITALS: BP 108/60
[2019-12-11] MEDS: MOM 30ML SUSPENSION UDC PO PRN (06:16)
[2019-12-11] MEDS: LEVOTHYROXINE 100MCG TABLET (0.1MG) PO SCH (06:16)
[2019-12-11 06:31] LABS: HEMATOCRIT 31.5 % (36.0-47.0); HEMOGLOBIN 10.1 g/dl (12.0-15.5); MEAN CORPUSCULAR HEMOGLOBIN 33.6 pg (27.0-33.0); MEAN CORPUSCULAR HGB CONC 32.1 g/dl (32.0-36.5); MEAN CORPUSCULAR VOLUME 104.7 fl (80.0-96.0); PLATELET COUNT, AUTOMATED 312 10^3/uL (150-450); RED BLOOD COUNT 3.01 10^6/uL (4.00-5.40); WHITE BLOOD COUNT 8.7 10^3/uL (4.0-10.0)
[2019-12-11 07:01] LABS: ALBUMIN 2.8 GM/DL (3.2-5.2); BILIRUBIN,TOTAL 0.1 MG/DL (0.2-1.0); CALCIUM LEVEL 9.6 MG/DL (8.8-10.2); CREATININE FOR GFR 1.54 MG/DL (0.55-1.30); GLOMERULAR FILTRATION RATE 34.1 (>32); POTASSIUM SERUM 4.7 MEQ/L (3.5-5.1); TOTAL PROTEIN 7.7 GM/DL (6.4-8.2)
[2019-12-11] MEDS: ALBUTEROL SULFATE 2.5 MG/0.5 ML INH NEB SOLN INH SCH ×2 (07:20→19:42)
[2019-12-11] MEDS: ADVAIR HFA 230/21MCG INHALER INH SCH ×2 (07:20→19:42)
[2019-12-11] MEDS: TIOTROPIUM INHALER/CAPSULE (SPIRIVA) INH SCH (07:20)
[2019-12-11] MEDS: BUDESONIDE 0.5 MG/2 ML INHALATION SUSPENSION INH SCH ×2 (07:20→19:42)
[2019-12-11] MEDS: HEPARIN SOD (PORCINE) 5000UNITS/ML VIAL (J1644 PER 1000UNITS) SQ SCH ×2 (10:06→22:05)
[2019-12-11] MEDS: FLUCONAZOLE 100 MG TAB PO SCH ×2 (10:07→22:05)
[2019-12-11] MEDS: ASCORBIC ACID 500 MG TAB PO SCH (10:07)
[2019-12-11] MEDS: CALCIUM CARBONATE 500 MG CHEW U/D PO SCH ×2 (10:07→22:05)
[2019-12-11] MEDS: DOCUSATE SODIUM 100 MG CAP PO SCH ×2 (10:07→22:06)
[2019-12-11] MEDS: VITAMIN D 1,000 INTERNATIONAL UNITS TABLET PO SCH (10:07)
[2019-12-11] MEDS: METOPROLOL SUCC *XL* 25MG TAB (TopROL *XL*) PO SCH (10:08)
[2019-12-11] MEDS: NORTRIPTYLINE 10 MG CAP PO SCH ×2 (10:08→22:05)
[2019-12-11] MEDS: PRIMIDONE 250 MG TAB PO SCH ×3 (10:08→22:06)
[2019-12-11] MEDS: FERROUS SULFATE 325MG TAB PO SCH (10:09)
[2019-12-11] MEDS: TORSEMIDE 20 MG TAB PO SCH (10:09)
--- NOTE | 2019-12-11 21:56 | REPVR ---
PROCEDURE INFORMATION: Exam: MR Head Without Contrast Exam date and time: 12/11/2019 9:28 PM Age: 84 years old Clinical indication: Altered mental status/memory loss; Confusion or disorientation; Additional info: Memory loss, confusion TECHNIQUE: Imaging protocol: MR of the head without contrast. COMPARISON: CT Head without contrast 12/09/2019 8:35 PM FINDINGS: Brain: There is cerebral atrophy. Changes of chronic white matter microvascular disease are present. No signs of a recent infarction or hemorrhage. 10 mm calcified anterior falcine meningioma is unchanged. No mass effect or midline shift. No other mass or abnormal contrast enhancement. Ventricles: Normal. No ventriculomegaly. Bones/joints: Unremarkable. Sinuses: Normal as visualized. No acute sinusitis. Mastoid air cells: Normal as visualized. No mastoid effusion. Orbits: Unremarkable. Soft tissues: Unremarkable. IMPRESSION: 1. Atrophy and chronic white matter changes. No acute intracranial abnormality. 2. Stable anterior falcine meningioma. Electronically signed by: Kip Holliday On 12/11/2019 21:55:29 PM
[2019-12-11] MEDS: ATORVASTATIN 20 MG TAB PO SCH (22:05)
[2019-12-11] MEDS: LATANOPROST 0.005% OPHTH SOLN 2.5 ML OU SCH (22:05)
[2019-12-11] MEDS: SENOKOT S TAB PO SCH (22:06)
[2019-12-12] MEDS: ACETAMINOPHEN 500 MG TAB PO PRN ×2 (05:01→23:55)
[2019-12-12 06:00] VITALS: BP 134/64
[2019-12-12] MEDS: LEVOTHYROXINE 100MCG TABLET (0.1MG) PO SCH (06:03)
[2019-12-12] MEDS: ADVAIR HFA 230/21MCG INHALER INH SCH ×2 (08:00→19:30)
[2019-12-12] MEDS: TIOTROPIUM INHALER/CAPSULE (SPIRIVA) INH SCH (08:00)
[2019-12-12] MEDS: BUDESONIDE 0.5 MG/2 ML INHALATION SUSPENSION INH SCH ×2 (08:00→19:31)
[2019-12-12] MEDS: ALBUTEROL SULFATE 2.5 MG/0.5 ML INH NEB SOLN INH SCH ×2 (08:00→19:30)
[2019-12-12] MEDS: ASCORBIC ACID 500 MG TAB PO SCH (09:57)
[2019-12-12] MEDS: PRIMIDONE 250 MG TAB PO SCH ×3 (09:57→20:52)
[2019-12-12] MEDS: CALCIUM CARBONATE 500 MG CHEW U/D PO SCH ×2 (09:57→20:51)
[2019-12-12] MEDS: VITAMIN D 1,000 INTERNATIONAL UNITS TABLET PO SCH (09:57)
[2019-12-12] MEDS: NORTRIPTYLINE 10 MG CAP PO SCH ×2 (09:57→20:52)
[2019-12-12 09:58] VITALS: BP 125/74
[2019-12-12] MEDS: FLUCONAZOLE 100 MG TAB PO SCH ×2 (09:58→20:52)
[2019-12-12] MEDS: METOPROLOL SUCC *XL* 25MG TAB (TopROL *XL*) PO SCH (09:58)
[2019-12-12] MEDS: FERROUS SULFATE 325MG TAB PO SCH (09:58)
[2019-12-12] MEDS: DOCUSATE SODIUM 100 MG CAP PO SCH ×2 (09:58→20:52)
[2019-12-12] MEDS: TORSEMIDE 20 MG TAB PO SCH (09:58)
[2019-12-12] MEDS: HEPARIN SOD (PORCINE) 5000UNITS/ML VIAL (J1644 PER 1000UNITS) SQ SCH ×2 (09:59→20:52)
[2019-12-12] MEDS: MOM 30ML SUSPENSION UDC PO PRN (09:59)
[2019-12-12] MEDS: SENOKOT S TAB PO SCH (20:50)
[2019-12-12] MEDS: ATORVASTATIN 20 MG TAB PO SCH (20:52)
[2019-12-12] MEDS: LATANOPROST 0.005% OPHTH SOLN 2.5 ML OU SCH (20:53)
[2019-12-13] VITALS (9 sets, daily range): BP systolic 105–136; BP diastolic 65–84; O2SAT 93–96
--- NOTE | 2019-12-13 01:08 | IPNPDOC ---
Date Seen The patient was seen on 12/13/19. Progress Note SUBJECTIVE: Records from [facility] were reviewed from neurology. MRI of the brain: atrophy and chronic white matter changes but no acute intracranial abnormality. There was a stable anterior falcine meningioma noted. I discussed the case with neurology, Dr. Palma. The patient was a previous patient in their outpatient neurology office. At the time she was being treated for moderate progressive sensory and motor polyneuropathy. She had undergone EMG and nerve conduction studies in 2007. There was a big suspicion of dementia likely being a diagnosis, by the findings on her MRI brain. Upon further discussion with neurology after their assessment, there was a strong suspicion for acute now on chronic physical debility likely 2/2 to multiple hospital admissions. The patient is awake, alert and oriented x 2 this morning on exam. She denies chest pain, shortness of breath, n/v/d. OBJECTIVE: VITAL SIGNS: Please see below PHYSICAL EXAMINATION: General: Sitting in bedside chair, appears comfortable, is awake and alert x2, not to time HEENT: NC, AT CVS: +S1S2 Lungs: There is fair air entry bilaterally, faint wheezing bilaterally. No evide nce of rhonchi or crackles Abdomen: Nondistended, nontender and remained soft Extremities: No lower ext edema. Neuro: 3-4/5 strength at upper extremities, 3/5 strength in upper extremities. Reflexes in tact in upper and lower ext. Psych: Angry at times LABORATORY: Please see below IMAGING: MRI head: 1. Atrophy and chronic white matter changes. No acute intracranial abnormality. 2. Stable anterior falcine meningioma CT head 12/09/19: no acute intracranial abnormality ASSESSMENT: 84 y/o F with extensive PMH admitted for increased generalized weakness, memory loss, acute kidney injury-now resolved. PLAN: 1. Generalized weakness likely multifactoriral to dehydration on initial presentation which has resolved, hx of chronic physical deconditioning possibly 2/2 to dementia and multiple back to back hospitalization stays, depression -Also history of progressive sensory and motor polyneuropathy, confirmed by neurology - PT: safe to continue rehab only; would require 24/7 or full daytime care to return home and perform PT consistently with 1 assist. - Discharge plan is not yet decided. - C/w PT/OT, optimizing nutrition, treatment plans below 2. Memory loss/ confusion possibly 2/2 dementia, likely worsening - MRI brain above - CT head 12/09/19: No acute findings to suspect stroke - No focal neurologic deficits - TSH/ RPR / Folate / B12 - normal or neg; Lyme neg - Medications were reviewed again with pharmacy, not believed to be cause - Redirect whenever possible -Consider adding meds 3. Aspergillosis infection - Clinically patient denies any shortness of breath or changes in her baseline cough - CXR with chronic findings - Case discussed with pulmonology in the ER , will have outpatient follow-up within 7 days from discharge - c/w fluconazole (Liver function within normal limits) 4. Essential tremor in hands, head tremor -Note from 10/15/19 stated that Botulinum toxin injections were being given for head tremor and that there had been some improvement. -Follows with [facility] -C/w mysoline TID 5. Depression. -On last interview, she admitted to increased depression but also admitted to not taking medications when it is offered to her. -C/w decreased dose of nortriptyline 6. Chronic COPD/Asthma / Chronic hypoxic respiratory failure on 2 L NC Oxygen - Appears to be at baseline - c/w inhaled therapy as ordered 7. Diastolic CHF - No evidence of exacerbation, BNP low - CXR 11/30: Stable appearing chronic changes as described above. - C/w diuretic, BB 8. HTN - BP well controlled - c/w Metoprolol 9. Chronic neck pain / cervical dystonia - XR cervical spine 12/01: This study is extremely limited. Odontoid is not visualized on the AP views. Patient refused to remove metallic earrings which overlie the C2 vertebral body on the lateral view. C6 and C7 are not well visualized on the lateral view. No gross fracture or dislocation is seen of the visualized osseous structures. There is no prevertebral soft tissue swelling. There does appear to be moderate disc space narrowing with subchondral sclerosis and spurring at the C5-6 disc space. There is also diffuse sclerosis and spurring as well as narrowing of the posterior facet joints. - Follows with [facility], botulinum toxin injections - c/w Lidoderm patch as needed and Tylenol for pain 10. CAD s/p PCI - Remains asymptomatic without chest pain, shortness breath or palpitations - c/w Metoprolol, Atorvastatin 11. DLP - c/w Atorvastatin 12. Hypothyroidism - c/w Levothyroxine 13. DVT prophylaxis - c/w Heparin DISPOSITION: Discharge plan is currently being worked on. Will require 24 hour services either at home or in facility. Her family is very involved in her care and has been in constant touch with social work. I attempted to call her daughter 4 times on 12/12/19- three times at 17:30 PM and 2 additional times at 18:15. VS, I&O, 24H, Fishbone Vital Signs/I&O Vital Signs Date Time Temp Pulse Resp B/P (MAP) Pulse Ox O2 Delivery O2 Flow Rate FiO2 12/12/19 10:00 2.0 12/12/19 09:58 84 125/74 12/12/19 06:00 97.8 20 97 Nasal Cannula I&O- Last 24 Hours up to 6 AM 12/13/19 06:00 Intake Total 0 ml Output Total 0 ml Balance 0 ml Current Medications Current Medications Medications (Trade) Dose Ordered Sig/Geni Route PRN Reason Start Time Stop Time Status Last Admin Dose Admin Acetaminophen (Tylenol Tab) 1,000 mg Q8HP PRN PO PAIN / FEVER 12/01/19 19:45 12/12/19 23:55 Albuterol Sulfate (Proventil Neb) 2.5 mg Q2HP PRN NEB SOB/WHEEZING 12/01/19 19:45 Albuterol Sulfate (Proventil Neb) 2.5 mg RBID INH 12/02/19 20:00 12/11/19 19:42 Albuterol/ Ipratropium (Duoneb (Ipr 0.5mg/Alb 2.5mg)) 3 ml RQ6H NEB 12/01/19 20:00 12/02/19 12:29 DC 12/02/19 07:38 Ascorbic Acid (Vitamin C) 500 mg DAILY PO 12/02/19 09:00 12/12/19 09:57 Atorvastatin Calcium (Lipitor) 40 mg QHS PO 12/01/19 21:00 12/12/19 20:52 Bisacodyl (Dulcolax Suppository) 10 mg DAILY PRN GA CONSTIPATION 12/01/19 19:45 12/09/19 10:25 DC Bisacodyl (Dulcolax Suppository) 10 mg DAILYPRN PRN GA CONSTIPATION 12/10/19 11:15 12/10/19 21:13 Budesonide (Pulmicort) 0.5 mg RBID INH 12/01/19 20:00 12/11/19 19:42 Calcium Carbonate (Tums) 500 mg BID PO 12/01/19 21:00 12/12/19 20:51 Capsaicin (Zostrix 0.025%) APPLY TO AFFECTED AREA... BID TOP 12/02/19 21:00 12/03/19 06:07 DC 12/02/19 22:24 Docusate Sodium (Colace) 100 mg BID PO 12/07/19 09:00 12/12/19 20:52 Ferrous Sulfate (Ferrous Sulfate) 325 mg DAILY PO 12/02/19 09:00 12/12/19 09:58 Fluconazole (Diflucan Tablet) 200 mg BID PO 12/01/19 21:00 12/12/19 20:52 Heparin Sodium (Porcine) (Heparin) 5,000 units Q12H SQ 12/01/19 21:00 12/12/19 20:52 Home Med (Med Rec Complete!) ASDIRECTED XX 12/01/19 19:45 12/01/19 19:40 DC Lactulose (Cephulac) 15 ml DAILYPRN PRN PO CONSTIPATION 12/10/19 11:45 Latanoprost (Xalatan 0.005% Op Soln) 1 drop QHS OU 12/01/19 21:00 12/12/19 20:53 Levothyroxine Sodium (Synthroid) 100 mcg DAILY@0600 PO 12/02/19 06:00 12/12/19 06:03 Lidocaine (Lidoderm Patch) 1 patch DAILY@0600 TD 12/02/19 06:00 12/03/19 06:07 DC 12/02/19 05:15 Magnesium Hydroxide (Milk Of Magnesia) 15 ml DAILYPRN PRN PO CONSTIPATION 12/09/19 10:30 12/12/19 09:59 Magnesium Hydroxide (Milk Of Magnesia) 15 ml QHS PRN PO CONSTIPATION 12/01/19 19:45 12/09/19 10:25 DC Metoprolol Succinate (TopROL XL) 25 mg DAILY PO 12/02/19 09:00 12/12/19 09:58 Non-Formulary Medication ( See Comment Field Below ) REMOVE LIDODERM PATCH f... DAILY@1800 XX 12/02/19 18:00 12/03/19 06:11 DC 12/02/19 18:34 Nortriptyline HCl (Pamelor) 10 mg BID PO 12/01/19 21:00 12/12/19 20:52 Nystatin (Mycostatin Powder, Nystop) APPLY TO ABDOMINAL FOLDS DAILYPRN PRN TOP RASH 12/01/19 19:45 Polyethylene Glycol (Miralax) 1 pkt DAILY PO 12/08/19 09:00 12/10/19 11:34 DC Primidone (Mysoline) 250 mg TID@0800,1200,2100 PO 12/01/19 21:00 12/12/19 20:52 Salmeterol Xinafoate/ Fluticasone (Advair Hfa 230/ 21) 2 puff RBID INH 12/02/19 08:00 12/12/19 19:30 Senna/Docusate Sodium (Senokot S) 2 tab BID PRN PO CONSTIPATION 12/01/19 19:45 12/09/19 10:25 DC Senna/Docusate Sodium (Senokot S) 2 tab QHS PO 12/09/19 21:00 12/12/19 20:50 Sodium Chloride 1,000 ml @ 100 mls/hr Q10H IV 12/01/19 19:30 12/03/19 08:39 DC 12/03/19 03:39 Tiotropium [place] (Spiriva Handihaler) 1 inhalation DAILY@08 INH 12/02/19 08:00 12/12/19 08:00 Torsemide (Demadex) 20 mg DAILY PO 12/11/19 09:00 12/12/19 09:58 Torsemide (Demadex) 40 mg DAILY PO 12/04/19 09:00 12/11/19 09:05 DC 12/10/19 09:35 Vitamin D (Vitamin D) 2,000 units DAILY PO 12/02/19 09:00 12/12/19 09:57 Allergies Coded Allergies: ibuprofen (Verified Allergy, Severe, respiratory distress, 08/03/19) Cephalosporins (Verified Allergy, Intermediate, SEVERE HIVES, 08/03/19) iodine (Verified Allergy, Intermediate, SEVERE HIVES, 08/03/19) tetracycline (Verified Allergy, Intermediate, hives, 08/03/19) cephalexin (Verified Allergy, Mild, RASH (FROM kEFLEX), 08/03/19) vancomycin (Verified Allergy, Mild, facial and arm rash and itching, 08/04/19) ciprofloxacin (Verified Allergy, Unknown, 08/03/19) NSAIDS (Non-Steroidal Anti-Inflamma (Verified Adverse Reaction, Severe, unable to take d/t asthma, 12/01/19) morphine (Verified Adverse Reaction, Intermediate, HALLUCINATIONS, 08/03/19) Genie Garrett MD Dec 13, 2019 01:08
--- NOTE | 2019-12-13 02:03 | REPVR ---
PROCEDURE INFORMATION: Exam: MR Lumbar Spine Without Contrast. Exam date and time: 12/12/2019 7:53 PM Age: 84 years old Clinical indication: Patient HX: Low back pain, weakness; Additional info: Bilateral lower ext weakness TECHNIQUE: Imaging protocol: Multiplanar magnetic resonance images of the lumbar spine without intravenous contrast. COMPARISON: No relevant prior studies available. FINDINGS: Vertebrae: Normal lumbar lordosis, vertebral body heights, and alignments. Mildly heterogeneous vertebral marrow signal. Spinal cord: Normal signal. No cord compression. T12-L1: Minimal disc bulging without stenosis. L1-L2: Facet arthropathy, ligamentum flavum thickening, and disc bulge causes mild spinal/foraminal stenosis. L2-L3: Moderate facet arthropathy and ligamentum flavum thickening with minimal disc bulging causes minimal foraminal and mild moderate spinal stenosis. L3-L4: Moderate facet arthropathy and ligamentum flavum thickening with minimal disc bulging causes mild right foraminal, spinal, and minimal left foraminal stenosis. L4-L5: Moderate facet arthropathy. Right paracentral disc protrusion effaces the right subarticular recess and contacts the traversing right L5 nerve roots. Mild spinal, moderate right subarticular, and minimal foraminal stenosis. L5-S1: Mild facet arthropathy with minimal disc bulging but no stenosis. Kidneys and ureters: Renal cysts incidentally noted. Soft tissues: Unremarkable. IMPRESSION: Degenerative disc and joint disease greatest at L4-L5 with a right paracentral disc protrusion, correlate for right L5 radiculopathy. Electronically signed by: Phillip Braga On 12/13/2019 02:03:27 AM
[2019-12-13] MEDS: LEVOTHYROXINE 100MCG TABLET (0.1MG) PO SCH (06:05)
[2019-12-13 07:03] LABS: HEMOGLOBIN 10.4 g/dl (12.0-15.5); MEAN CORPUSCULAR HEMOGLOBIN 33.2 pg (27.0-33.0); MEAN CORPUSCULAR HGB CONC 32.5 g/dl (32.0-36.5); MEAN CORPUSCULAR VOLUME 102.2 fl (80.0-96.0); PLATELET COUNT, AUTOMATED 335 10^3/uL (150-450); RED BLOOD COUNT 3.13 10^6/uL (4.00-5.40); WHITE BLOOD COUNT 10.1 10^3/uL (4.0-10.0)
[2019-12-13 07:24] LABS: BILIRUBIN,TOTAL 0.2 MG/DL (0.2-1.0); CREATININE FOR GFR 1.45 MG/DL (0.55-1.30); GLOMERULAR FILTRATION RATE 36.5 (>32); POTASSIUM SERUM 4.8 MEQ/L (3.5-5.1); TOTAL PROTEIN 8.4 GM/DL (6.4-8.2)
[2019-12-13] MEDS: PRIMIDONE 250 MG TAB PO SCH ×2 (08:00→12:00)
[2019-12-13] MEDS ORDERED: NORTRIPTYLINE 10 MG CAP PO SCH (09:00)
[2019-12-13] MEDS: FLUCONAZOLE 100 MG TAB PO SCH (09:00)
[2019-12-13] MEDS: METOPROLOL SUCC *XL* 25MG TAB (TopROL *XL*) PO SCH (09:00)
[2019-12-13] MEDS: VITAMIN D 1,000 INTERNATIONAL UNITS TABLET PO SCH (09:00)
[2019-12-13] MEDS: ASCORBIC ACID 500 MG TAB PO SCH (09:00)
[2019-12-13] MEDS: TORSEMIDE 20 MG TAB PO SCH (09:00)
[2019-12-13] MEDS: DOCUSATE SODIUM 100 MG CAP PO SCH ×2 (09:00→21:00)
[2019-12-13] MEDS: HEPARIN SOD (PORCINE) 5000UNITS/ML VIAL (J1644 PER 1000UNITS) SQ SCH ×2 (09:00→20:11)
[2019-12-13] MEDS: FERROUS SULFATE 325MG TAB PO SCH (09:00)
[2019-12-13] MEDS: CALCIUM CARBONATE 500 MG CHEW U/D PO SCH ×2 (09:00→21:00)
[2019-12-13 12:01] LABS: ABG BASE EXCESS 2.4 (-2.0-2.0); ABG HCO3 27.4 MEQ/L (22.0-26.0); ABG O2 SATURATION 89.4 % (95.0-99.0); ABG PARTIAL PRESSURE O2 58.1 mmHg (75.0-100.0); ABG STANDARD HCO3 26.5 MEQ/L (22.0-26.0); ABG TOTAL CO2 28.7 MEQ/L (23.0-31.0); ABG pH (ARTERIAL) 7.412 UNITS (7.350-7.450)
[2019-12-13 12:04] LABS: NT-PRO BNP 80 PG/ML (<450); TROPONIN I < 0.02 NG/ML (< 0.10)
[2019-12-13] MEDS: ADVAIR HFA 230/21MCG INHALER INH SCH ×2 (12:11→20:00)
[2019-12-13] MEDS: TIOTROPIUM INHALER/CAPSULE (SPIRIVA) INH SCH (12:12)
[2019-12-13] MEDS: BUDESONIDE 0.5 MG/2 ML INHALATION SUSPENSION INH SCH ×2 (12:12→20:28)
[2019-12-13] MEDS: ALBUTEROL SULFATE 2.5 MG/0.5 ML INH NEB SOLN INH SCH ×2 (12:12→20:30)
--- NOTE | 2019-12-13 13:20 | CR ---
DATE OF CONSULTATION: 12/13/2019 REFERRING PROVIDER: Dr. Genie Garrett HISTORY OF PRESENT ILLNESS: Bonnie Ball is an 84-year-old female with past medical history significant for longstanding history of essential tremor and cervical dystonia, followed by [facility] in [place], [place]. The patient has longstanding history of chronic back pain with a history of back injury and lower extremity weakness with moderate to severe sensorimotor peripheral polyneuropathy documented in 2007. The patient has significant suspicion for dementia with sundowning occurring. The patient has been having progressive decline in ability to participate in physical therapy. There is question whether depression and lack of motivation is playing a part. I was consulted to rule out any acute neurological event. The patient has been providing fluctuating effort in demonstrating her strength in the upper and lower extremities. She is using a Isa Stedy with physical therapy to assist in her ability to ambulate. The patient at the present time of the visit is oriented to her name, location, and the year. The patient is able to participate in examination. She denies any chest pain or trouble breathing. She was admitted for a fungal infection. The patient's workup so far has included an MRI of the brain, which shows diffuse cerebral atrophy and small-vessel ischemic disease with parafalcine meningioma without any significant mass effect or vasogenic edema. MRI of the lumbosacral spine was completed, and this has shown possible right L5 nerve root compression. The patient has longstanding history of lower extremity weakness, well documented in multiple neurological visits.. The patient denies having any ascending paresthesias, sensation of numbness in the legs or feet traveling up. She states that she does have significant pain in multiple joints. PAST MEDICAL HISTORY: 1. Asthma. 2. Chronic obstructive pulmonary disease (COPD), oxygen dependent on 2 liters nasal cannula. 3. Diastolic congestive heart failure. 4. Hypertension. 5. Hypothyroidism. 6. History of deep vein thrombosis (DVT). 7. The patient was treated by Dr. eDgroot is for fungal infection, treated with fluconazole. 8. The patient has baseline shortness of breath. 9. Essential tremors, cervical dystonia, chronic coronary artery disease (CAD), status post percutaneous coronary intervention (PCI). 10. Dyslipidemia. 11. Hypothyroidism. 12. Rheumatoid arthritis. 13. Obstructive sleep apnea. 14. Obesity. 15. Superficial basilic vein nonocclusive thrombus. 16. The patient reports history of cerebral hemorrhage but did not require surgical intervention. PAST SURGICAL HISTORY: 1. Bilateral cataract surgery. 2. Dilation of left Stensen duct for peritonitis. 3. Total hysterectomy. 4. Tonsillectomy. 5. Diverticular abscess. 6. Diverting colostomy placement and subsequent reversal. FAMILY HISTORY: Mother had a stroke in her 40s. Parents with coronary artery disease. SOCIAL HISTORY: The patient is a former smoker, quit 20 years ago. Denies use of any alcohol or illicit drugs. ALLERGIES: CEPHALOSPORIN, NONSTEROIDAL ANTI-INFLAMMATORY DRUGS (NSAIDS), CEPHALEXIN, CIPROFLOXACIN, IBUPROFEN, IV MORPHINE. LABORATORY WORK: Sodium 135, slightly low, BUN 54, creatinine 1.54, creatinine increased from 2 days ago from 1.27. AST 44, ALT 20. TSH, free T4 normal. B12 871. RPR nonreactive. Lyme antibodies negative. Lactic acid level 1.9, within normal limits. WBC count 8.7. Urinalysis on 12/01/2019 was negative. PHYSICAL EXAMINATION: The patient is awake, alert, oriented to person, place, and time. Speech, language comprehension appear intact without any significant dysarthria or aphasia. Slight bradyphrenia is noted. Vital signs: Blood pressure 134/64, pulse rate 78, respiratory rate is 20, oxygenation 97 on 2 liters cannula, temperature 97.8 degrees Fahrenheit. There is no facial weakness on exam. Tongue is midline. Palate elevates symmetrically. Extraocular movements are intact. Pupils are appearing 2.5 mm, round, reactive to light. Extraocular movements are intact without nystagmus. Hearing is equal to finger rub. There does not appear to be any pronator drift. There is no gross ataxia or dysmetria on [id number]. The patient has reasonable 5- hand trackless trolley driver strength and has 5/5 strength in the deltoid, biceps, and triceps. The patient requires extra encouragement to provide good effort. Iliopsoas of bilateral is 4/5. The patient demonstrates quadriceps strength 5- on the right and 4+ on the left and limited by pain. At times there is 5- strength bilaterally in the quadriceps. Tibialis anterior strength is 4+ on the right and 3+ on the left. Sensation is intact to light touch in all four extremities. Deep tendon reflexes are reduced at the patellas and Achilles and are 2+ in the upper extremities. Gait deferred. ASSESSMENT: This is an 84-year-old female who was recently in [facility] multiple times this year for generalized weakness, fever, sepsis, urinary tract infection (UTI), urosepsis, and prior to this admission was admitted on 08/03/2019. The patient was discharged from rehabilitation. She was doing physical therapy it seems until she could no longer have it covered by her insurance. Her family reported that since then she started to again have a decline in her strength. The patient likely has deconditioning with baseline lower extremity weakness and with evidence of a sensorimotor peripheral polyneuropathy documented from 2007. Her weakness is likely multifactorial. The patient has intermittent effort at bedside, depending on the time of the day. She has baseline dementia, which appears to fluctuate with , likely contributing towards her effort. The patient does not complain of any ascending numbness to suspect Marilee-Indore syndrome. The patient does not complain of any ascending weakness. She admits that she has baseline weakness of the lower extremities longstanding since a back injury. There is no evidence of acute stroke. There is no evidence of severe spinal stenosis. There is, however, evidence of a possible right L5 nerve root compression, which can explain weakness in the lower extremities with ankle dorsiflexion. Sensorimotor polyneuropathy can also explained lower extremity weakness below the knees. Upper extremity strength is reasonably well preserved. I do not suspect that the patient has an underlying acute myopathy. Reflexes are not brisk to suspect myelopathy. The patient's family members, including daughter, were spoken to yesterday, explaining that the patient is demonstrating very reasonable strength close to her baseline strength and is limited by the patient's pain. The patient will benefit from ongoing physical therapy to regain some of her strength back. It seems that after physical therapy was stopped, the gains in strength and stability she had from her last admission in July, she has never been able to maintain that after stopping the physical therapy. It is less likely the patient has Guillain-Indore syndrome at this time. Upper extremity strength seems preserved. A spinal tap is possible if the patient does not get any better; however, spinal tap availability through interventional radiology (IR) is not available at [facility] at this time. Consider transfer to a larger academic center for further evaluation and possible spinal tap. Case discussed with Dr. Garrett. The patient may benefit with outpatient electromyogram (EMG) nerve conduction study at some point. PLAN: Recommend ongoing physical therapy (PT)/occupational therapy (OT). Recommend supportive care. Consider switching nortriptyline 10 mg twice a day to 10 mg at bedtime. Primidone for cervical dystonia and tremors is 250 mg three times a day, which may be started which will be followed by her movement disorder clinic in [place], [place]. This can be continued for now.
[2019-12-13] MEDS: NS 1,000 ML IV SCH ×2 (13:40→22:00)
[2019-12-13] MEDS: PIPERACILLIN/TAZOBACTAM SOD 3.375 GM in D5W MINI-BAG PLUS 50 ML IV SCH ×2 (13:55→20:12)
[2019-12-13 14:22] LABS: ABG BASE EXCESS 2.5 (-2.0-2.0); ABG HCO3 27.5 MEQ/L (22.0-26.0); ABG O2 SATURATION 96.5 % (95.0-99.0); ABG PARTIAL PRESSURE CO2 43.9 mmHg (35.0-45.0); ABG PARTIAL PRESSURE O2 83.9 mmHg (75.0-100.0); ABG STANDARD HCO3 26.7 MEQ/L (22.0-26.0); ABG TOTAL CO2 28.8 MEQ/L (23.0-31.0); ABG pH (ARTERIAL) 7.414 UNITS (7.350-7.450)
--- NOTE | 2019-12-13 15:02 | REP ---
REASON: Altered mental status. COMPARISON: 12/09/2019 There is no change from the prior exam. There is cerebral and cerebellar atrophy. No acute intracranial hemorrhagic or nonhemorrhagic event has occurred. The ventricles and sulci are unchanged. The deep white matter is unchanged. There are no acute extra-axial fluid collections. There is no change in the posterior fossa. There is no skull fracture. There is no change in the paranasal sinuses or mastoid air cells. IMPRESSION: No change. No evidence of acute disease. Electronically Signed by Aryan Chan DO 12/13/2019 04:27 P
--- NOTE | 2019-12-13 15:08 | REP ---
REASON FOR EXAM: Pyrexia. COMPARISON EXAM: Multiple, the latest 10/24/2019. The lack of intravenous contrast decreases the sensitivity of the exam, as on the prior exam. Limited evaluation of the mediastinum and pulmonary jacklyn shows no significant changes from the prior exam. Hilar adenopathy cannot be ruled out since intravenous contrast was withheld. There are no pleural or pericardial effusions. There is no change in the osseous structures or imaged upper abdomen. Evaluation of the lung gardner shows respiratory motion artifact obscuring the detail. Once again, there are asymmetric bibasilar opacities with air bronchograms. These are essentially unchanged from the prior exam when the technical differences between the examinations are taken into consideration. There is an unchanged nodule in the right lower lobe, and there are other smaller nodules which are for the most part obscured by the motion artifact and are barely perceptible. No new abnormal nodule, mass, or opacity seems to have developed on this limited exam. IMPRESSION: 1. No significant change in the appearance of the findings, as described above, when the technical differences between the examinations are taken into consideration. Persistent bibasilar opacities and lung nodules are suspected. 2. Other findings and limitations as described above. Electronically Signed by Aryan Chan DO 12/13/2019 04:27 P
--- NOTE | 2019-12-13 15:11 | REP ---
REASON: Pyrexia. COMPARISON: 07/03/2019, also without contrast. The lack of intravenous contrast decreases the sensitivity of the exam. The liver, spleen, pancreas, gallbladder, adrenal glands, and kidneys are unchanged. Note is again made of cholelithiasis. The abdominal aorta and para-aortic regions are unchanged. The bowel loops and their mesenteries are essentially unchanged. No free fluid or free air has developed. There is no evidence of an intra-abdominal or intrapelvic mass. Bone window technique throughout the exam shows no change in the appearance of the osseous structures. IMPRESSION: No significant change from 07/03/2019. No evidence of acute disease. Findings as described above. Electronically Signed by Aryan Chan DO 12/13/2019 04:27 P
[2019-12-13] MEDS: LINEZOLID 600 MG in IV 1 EA IV SCH (15:18)
--- NOTE | 2019-12-13 17:51 | ECGEPIP ---
[facility] Test Date: 2019-12-13 Pat Name: STEFANO ROLDAN Department: Room: [place] [address] Gender: Female Pump Installer: : [id number] Requested By: Genie Maddox Order Number: [id number] Reading MD: Matt Oliver Measurements Intervals Liguori Rate: 88 P: 6 MO: 142 QRS: -8 QRSD: 96 T: 29 QT: 393 QTc: 477 Interpretive Statements SINUS RHYTHM BARBARA Consider prior inferoposterior infarct Compared to prior tracings in the system Electronically Signed on 12-13-2019 17:51:13 EDT by Matt Oliver
--- NOTE | 2019-12-13 18:44 | IPNPDOC ---
Date Seen The patient was seen on 12/13/19. Progress Note SUBJECTIVE: The patient was increasingly lethargic this morning, minimally responsive . On exam she was diaphoretic and would not follow commands, much changed from her evaluation on 12/12/2019 and even much changed according to the nurse who took her over at [address] of the head was negative for acute intracranial abnormality, CT abdomen and pelvis negative for acute findings, CT chest negat sherman for acute findings but commented on bibasilar opacities (possible PNA)- scans were unable to be performed with IV contrast due to allergy. CT of the chest was reviewed with pulmonary, ICU and her case was also discussed in detail with neurology. Pulmonary did not feel that the CT chest was much changed from her prior ones. We discussed her history of coccidomycosis and her prior treatment course, including needing to be stopped on voriconizole in the near past for increased mental status changes on that medication. The patient had remained on fluconazole (the alternative to voriconazole) during her hospital stay so perhaps she did not tolerate this well? ABG showed metabolic alkalosis with respiratory acidosis, repeat ABG showed much improvement after IV fluids. She was made NPO, started on IVFs, empiric antibiotics including Zyvox and Zosyn due to multiple antibiotic allergies. Blood cultures were repeated, UA was mildly positive, WBC mildly elevated at 10.1, Covid negative, lactic acid within normal limits, vital signs stable. Due to rapid decline cognitively and with increased generalized weakness with an essentially negative workup, specialty services and myself agreed that if the family should choose to be more aggressive then a spinal tap would be required. I spoke with the patient's healthcare proxy and daughter (Ani Antunez) and other daughter Hellen, son Isrrael for family meeting. They were all updated and MOLST form was reviewed in full. Decision was made to do spinal tap on 12/15/19, c/w abx and see what results may arise. She was changed from a full code to DNR/DNI. OBJECTIVE: VITAL SIGNS: Please see below PHYSICAL EXAMINATION: General: Appears very lethargic, not following commands, minimally responsive to palpation, loud verbal stimuli. HEENT: NC, AT CVS: +S1S2 Lungs: CTAB,no evidence of rhonchi or crackles Abdomen: Nondistended, nontender and remained soft Extremities: No lower ext edema; however, there is dusking of bilateral lower ext, prominent on bottom of feet, toes and knees. Neuro: Flacid upper and lower ext, not following commands. No overt focal deficits. Reflexes in tact in upper and lower ext. LABORATORY: Please see below IMAGING: CT head 12/12: no acute intracranial abnormality CT abd/pelvis 12/12: No significant change from 07/03/2019. No evidence of acute disease. Findings as described above. CT chest 12/12: 1. No significant change in the appearance of the findings, as described above, when the technical differences between the examinations are taken into consideration. Persistent bibasilar opacities and lung nodules are suspected. MRI head 12/10: 1. Atrophy and chronic white matter changes. No acute intracranial abnormality. 2. Stable anterior falcine meningioma CT head 12/09/19: no acute intracranial abnormality ASSESSMENT: 84 y/o F with extensive PMH admitted for increased generalized weakness, memory loss, acute kidney injury, new encephalopathy PLAN: 1. Encephalopathy, r/o metabolic/infectious (? PNA, UTI, existing coccidiomycosis infection) cause vs. worsening dementia and overall natural decline? -CT head, MRI brain above. Evaluated by neurology -WBC 10.1, afebrile, VS stable -Hx of chronic physical deconditioning possibly 2/2 to dementia and multiple back to back hospitalization stays, depression -F/u UCx, BCx, sputum cx if one can be produced. Decision by family was to keep patient here on current abx, opted for spinal tap after the weekend and see how she does -C/w Zosyn, zoyvox. -Holding off on PT/OT, NPO -Now DNR/DNI with updated MOLST in chart 2. Memory loss/ confusion possibly 2/2 ?dementia, acute issues above - No focal neurologic deficits - TSH/ RPR / Folate / B12 - normal or neg; Lyme neg - Medications were reviewed again with pharmacy, perhaps primidone with renal decline is issue? perhaps fluconazole contributing since she did not tolerate voriconazole in past (caused memory issues) - Redirect whenever possible - Assess when more awake and alert. Holding all drugs above. 3. Coccidiomycosis infection, chronic -Following with Dr. Degroot, pulmonary as o/p -Previously on voriconazole-stopped due to memory issues -Started on fluconazole on 11/20/19, Stopped today -F/u sputum cx if one can be provided, BCx 4. Bibasilar opacities on CT chest, r/o PNA vs. chronic findings (possible fungal?) -Currently saturating well on 2 L NC, baseline O2 amount -C/w abx above -F/u daily labs, sputum sample, blood cultures 5. UTI -UCx pending -C/w abx above 6. Dusking of feet, r/o possible PAD? Unlikely clots -As per daughter this is not old but acute -Cool to touch; however, DP, PT, popliteal pulses bilateral lower ext were present and strong. -Allergic to IV contrast -Continue to monitor. 7. Essential tremor in hands, head tremor -Note from 10/15/19 stated that Botulinum toxin injections were being given for head tremor and that there had been some improvement. -Follows with [facility] -Holding PO mysoline . When/if we restart then please 200 mg PO TID or decreased to BID 8. Progressive sensory and motor polyneuropathy, chronic -Hx of EMG, Nerve conduction studies 2007- moderate to severe at that time. -On evaluation, decreased sensory on prior exam bilaterally -Patient and I discussed this previously, had to been stable. 9. Depression. -On last interview, she admitted to increased depression but also admitted to not taking medications when it is offered to her. -Stopping nortriptyline due to altered mental state 10. Chronic COPD/Asthma / Chronic hypoxic respiratory failure on 2 L NC Oxygen - Appears to be at baseline - c/w inhaled therapy as ordered 11. Diastolic CHF - No evidence of exacerbation, BNP low - CXR 11/30: Stable appearing chronic changes as described above. - C/w diuretic, BB when taking PO 12. HTN - BP well controlled - c/w Metoprolol when taking PO 13. Chronic neck pain / cervical dystonia - XR cervical spine 12/01: This study is extremely limited. Odontoid is not visualized on the AP views. Patient refused to remove metallic earrings which overlie the C2 vertebral body on the lateral view. C6 and C7 are not well visualized on the lateral view. No gross fracture or dislocation is seen of the visualized osseous structures. There is no prevertebral soft tissue swelling. There does appear to be moderate disc space narrowing with subchondral sclerosis and spurring at the C5-6 disc space. There is also diffuse sclerosis and spurring as well as narrowing of the posterior facet joints. - Follows with [facility], botulinum toxin injections - c/w Lidoderm patch as needed 14. CAD s/p PCI - Remains asymptomatic without chest pain, shortness breath or palpitations - c/w Metoprolol, Atorvastatin when taking PO 15. DLP - c/w Atorvastatin when taking PO 16. Hypothyroidism - c/w Levothyroxine when taking PO 17. DVT prophylaxis - c/w Heparin DISPOSITION: Big decline in mental status today prompted family meeting with her daughters and sons in person, some on phone. Option to transfer to [place] for spinal tap was given; however, decision was to make DNR/DNI, stay until Sunday to hopefully get spinal tap here. Many questions were answered. MOLST form filled out and is in chart VS, I&O, 24H, Fishbone Vital Signs/I&O Vital Signs Date Time Temp Pulse Resp B/P (MAP) Pulse Ox O2 Delivery O2 Flow Rate FiO2 12/13/19 16:00 4.0 12/13/19 14:00 75 20 110/70 (83) 99 Nasal Cannula 12/13/19 13:00 98.0 I&O- Last 24 Hours up to 6 AM 12/13/19 06:00 Intake Total 150 ml Output Total 0 ml Balance 150 ml Laboratory Data 24H LABS Laboratory Tests 2 12/13/19 06:21: Nucleated Red Blood Cells % (auto) 0.0, Anion Gap 10, Glomerular Filtration Rate 36.5, Calcium Level 10.0, Total Bilirubin 0.2#, Aspartate Amino Transf (AST/SGOT) 31, Alanine Aminotransferase (ALT/SGPT) 18, Alkaline Phosphatase 110, Total Protein 8.4H, Albumin 3.0L, Albumin/Globulin Ratio 0.6L 12/13/19 11:32: Lactic Acid Level 1.2, Ammonia 22 12/13/19 11:40: Troponin I < 0.02, [id number]-Type Natriuretic Peptide 80 12/13/19 11:43: Blood Gas Bicarbonate Standard 26.5H, Arterial Blood pH 7.412, Arterial Blood Partial Pressure CO2 44.0, Arterial Blood Partial Pressure O2 58.1L, Arterial Blood Total CO2 28.7, Arterial Blood HCO3 27.4H, Arterial Blood Base Excess 2.4H, Arterial Blood Oxygen Saturation 89.4L 12/13/19 12:13: Bedside Glucose (Misc Panel) 143H 12/13/19 12:54: Coronavirus (COVID-19)(PCR) NEGATIVE 12/13/19 14:08: Blood Gas Bicarbonate Standard 26.7H, Arterial Blood pH 7.414, Arterial Blood Partial Pressure CO2 43.9, Arterial Blood Partial Pressure O2 83.9, Arterial Bl ood Total CO2 28.8, Arterial Blood HCO3 27.5H, Arterial Blood Base Excess 2.5H, Arterial Blood Oxygen Saturation 96.5 12/13/19 14:15: Urine Color YELLOW, Urine Appearance CLOUDYH, Urine pH 5.0, Urine Specific [place] 1.010, Urine Protein NEGATIVE, Urine Glucose (UA) NEGATIVE, Urine Ketones NEGATIVE, Urine Blood NEGATIVE, Urine Nitrite NEGATIVE, Urine Bilirubin NEGATIVE, Urine Urobilinogen 0.2, Urine Leukocyte Esterase 3+H, Urine WBC (Auto) TNTCH, Urine RBC (Auto) 0, Urine Hyaline Casts (Auto) 0, Urine Bacteria (Auto) 2+H, Urine Squamous Epithelial Cells 0, Urine Sperm (Auto) CBC/BMP Laboratory Tests 12/13/19 06:21 Microbiology Microbiology 12/13/19 Urine Culture, Received Pending 12/13/19 Blood Culture, Received Pending 12/13/19 Blood Culture, Received Pending Current Medications Current Medications Medications (Trade) Dose Ordered Sig/Geni Route PRN Reason Start Time Stop Time Status Last Admin Dose Admin Acetaminophen (Tylenol Tab) 1,000 mg Q8HP PRN PO PAIN / FEVER 12/01/19 19:45 12/12/19 23:55 Albuterol Sulfate (Proventil Neb) 2.5 mg Q2HP PRN NEB SOB/WHEEZING 12/01/19 19:45 Albuterol Sulfate (Proventil Neb) 2.5 mg RBID INH 12/02/19 20:00 12/11/19 19:42 Albuterol/ Ipratropium (Duoneb (Ipr 0.5mg/Alb 2.5mg)) 3 ml RQ6H NEB 12/01/19 20:00 12/02/19 12:29 DC 12/02/19 07:38 Ascorbic Acid (Vitamin C) 500 mg DAILY PO 12/02/19 09:00 12/12/19 09:57 Atorvastatin Calcium (Lipitor) 40 mg QHS PO 12/01/19 21:00 12/12/19 20:52 Bisacodyl (Dulcolax Suppository) 10 mg DAILY PRN NV CONSTIPATION 12/01/19 19:45 12/09/19 10:25 DC Bisacodyl (Dulcolax Suppository) 10 mg DAILYPRN PRN [place] CONSTIPATION 12/10/19 11:15 12/10/19 21:13 Budesonide (Pulmicort) 0.5 mg RBID INH 12/01/19 20:00 12/11/19 19:42 Calcium Carbonate (Tums) 500 mg BID PO 12/01/19 21:00 12/12/19 20:51 Capsaicin (Zostrix 0.025%) APPLY TO AFFECTED AREA... BID TOP 12/02/19 21:00 12/03/19 06:07 DC 12/02/19 22:24 Docusate Sodium (Colace) 100 mg BID PO 12/07/19 09:00 12/12/19 20:52 Ferrous Sulfate (Ferrous Sulfate) 325 mg DAILY PO 12/02/19 09:00 12/12/19 09:58 Fluconazole (Diflucan Tablet) 200 mg BID PO 12/01/19 21:00 12/13/19 12:40 DC 12/12/19 20:52 Heparin Sodium (Porcine) (Heparin) 5,000 units Q12H SQ 12/01/19 21:00 12/12/19 20:52 Home Med (Med Rec Complete!) ASDIRECTED XX 12/01/19 19:45 12/01/19 19:40 DC Lactulose (Cephulac) 15 ml DAILYPRN PRN PO CONSTIPATION 12/10/19 11:45 Latanoprost (Xalatan 0.005% Op Soln) 1 drop QHS OU 12/01/19 21:00 12/12/19 20:53 Levothyroxine Sodium (Synthroid) 100 mcg DAILY@0600 PO 12/02/19 06:00 12/13/19 06:05 Lidocaine (Lidoderm Patch) 1 patch DAILY@0600 TD 12/02/19 06:00 12/03/19 06:07 DC 12/02/19 05:15 Linezolid 600 mg/ IV Miscellaneous Supplies 300 ml @ 150 mls/hr Q12H IV 12/13/19 14:00 12/13/19 15:18 Magnesium Hydroxide (Milk Of Magnesia) 15 ml DAILYPRN PRN PO CONSTIPATION 12/09/19 10:30 12/12/19 09:59 Magnesium Hydroxide (Milk Of Magnesia) 15 ml QHS PRN PO CONSTIPATION 12/01/19 19:45 12/09/19 10:25 DC Metoprolol Succinate (TopROL XL) 25 mg DAILY PO 12/02/19 09:00 12/12/19 09:58 Non-Formulary Medication ( See Comment Field Below ) REMOVE LIDODERM PATCH f... DAILY@1800 XX 12/02/19 18:00 12/03/19 06:11 DC 12/02/19 18:34 Nortriptyline HCl (Pamelor) 10 mg BID PO 12/01/19 21:00 12/13/19 01:22 DC 12/12/19 20:52 Nortriptyline HCl (Pamelor) 10 mg DAILY PO 12/13/19 09:00 12/13/19 12:38 DC Nystatin (Mycostatin Powder, Nystop) APPLY TO ABDOMINAL FOLDS DAILYPRN PRN TOP RASH 12/01/19 19:45 Piperacillin Sod/ Tazobactam Sod 3.375 gm/Dextrose 50 ml @ 50 mls/hr Q8H IV 12/13/19 13:00 12/13/19 13:55 Polyethylene Glycol (Miralax) 1 pkt DAILY PO 12/08/19 09:00 12/10/19 11:34 DC Primidone (Mysoline) 250 mg TID@0800,1200,2100 PO 12/01/19 21:00 12/13/19 12:38 DC 12/12/19 20:52 Salmeterol Xinafoate/ Fluticasone (Advair Hfa 230/ 21) 2 puff RBID INH 12/02/19 08:00 12/12/19 19:30 Senna/Docusate Sodium (Senokot S) 2 tab BID PRN PO CONSTIPATION 12/01/19 19:45 12/09/19 10:25 DC Senna/Docusate Sodium (Senokot S) 2 tab QHS PO 12/09/19 21:00 12/12/19 20:50 Sodium Chloride 1,000 ml @ 100 mls/hr Q10H IV 12/13/19 12:00 12/13/19 13:40 Sodium Chloride 1,000 ml @ 100 mls/hr Q10H IV 12/01/19 19:30 12/03/19 08:39 DC 12/03/19 03:39 Tiotropium [place] (Spiriva Handihaler) 1 inhalation DAILY@08 INH 12/02/19 08:00 12/12/19 08:00 Torsemide (Demadex) 20 mg DAILY PO 12/11/19 09:00 12/12/19 09:58 Torsemide (Demadex) 40 mg DAILY PO 12/04/19 09:00 12/11/19 09:05 DC 12/10/19 09:35 Vitamin D (Vitamin D) 2,000 units DAILY PO 12/02/19 09:00 12/12/19 09:57 Allergies Coded Allergies: ibuprofen (Verified Allergy, Severe, respiratory distress, 08/03/19) Cephalosporins (Verified Allergy, Intermediate, SEVERE HIVES, 08/03/19) iodine (Verified Allergy, Intermediate, SEVERE HIVES, 08/03/19) tetracycline (Verified Allergy, Intermediate, hives, 08/03/19) cephalexin (Verified Allergy, Mild, RASH (FROM kEFLEX), 08/03/19) vancomycin (Verified Allergy, Mild, facial and arm rash and itching, 08/04/19) ciprofloxacin (Verified Allergy, Unknown, 08/03/19) NSAIDS (Non-Steroidal Anti-Inflamma (Verified Adverse Reaction, Severe, unable to take d/t asthma, 12/01/19) morphine (Verified Adverse Reaction, Intermediate, HALLUCINATIONS, 08/03/19) Genie Garrett MD Dec 13, 2019 18:44
[2019-12-13] MEDS: ATORVASTATIN 20 MG TAB PO SCH (21:00)
[2019-12-13] MEDS: LATANOPROST 0.005% OPHTH SOLN 2.5 ML OU SCH (21:00)
[2019-12-13] MEDS: SENOKOT S TAB PO SCH (21:00)
[2019-12-14] VITALS (16 sets, daily range): BP systolic 134–160; BP diastolic 73–82; O2SAT 92–99
[2019-12-14] MEDS: LINEZOLID 600 MG in IV 1 EA IV SCH ×2 (02:00→15:16)
[2019-12-14] MEDS: PIPERACILLIN/TAZOBACTAM SOD 3.375 GM in D5W MINI-BAG PLUS 50 ML IV SCH ×3 (05:00→22:01)
[2019-12-14] MEDS: LEVOTHYROXINE 100MCG TABLET (0.1MG) PO SCH (06:00)
[2019-12-14] MEDS: ADVAIR HFA 230/21MCG INHALER INH SCH ×2 (07:55→19:56)
[2019-12-14] MEDS: BUDESONIDE 0.5 MG/2 ML INHALATION SUSPENSION INH SCH ×2 (07:55→19:55)
[2019-12-14] MEDS: ALBUTEROL SULFATE 2.5 MG/0.5 ML INH NEB SOLN INH SCH ×2 (07:55→19:55)
[2019-12-14] MEDS: TIOTROPIUM INHALER/CAPSULE (SPIRIVA) INH SCH (07:55)
[2019-12-14] MEDS: NS 1,000 ML IV SCH ×2 (08:00→17:53)
[2019-12-14] MEDS: DOCUSATE SODIUM 100 MG CAP PO SCH (08:04)
[2019-12-14] MEDS: FERROUS SULFATE 325MG TAB PO SCH (08:04)
[2019-12-14] MEDS: ASCORBIC ACID 500 MG TAB PO SCH (08:05)
[2019-12-14] MEDS: METOPROLOL SUCC *XL* 25MG TAB (TopROL *XL*) PO SCH (08:05)
[2019-12-14] MEDS: CALCIUM CARBONATE 500 MG CHEW U/D PO SCH (08:05)
[2019-12-14] MEDS: VITAMIN D 1,000 INTERNATIONAL UNITS TABLET PO SCH (08:05)
[2019-12-14 08:48] LABS: BASO % 0.2 % (0.0-1.0); EOS # 0.1 10^3/uL (0.0-0.5); EOS % 0.5 % (0.0-3.0); HEMATOCRIT 31.6 % (36.0-47.0); LYMPH # 0.7 10^3/uL (1.5-5.0); LYMPH % 6.8 % (24.0-44.0); MEAN CORPUSCULAR HEMOGLOBIN 32.6 pg (27.0-33.0); MEAN CORPUSCULAR HGB CONC 31.6 g/dl (32.0-36.5); MEAN CORPUSCULAR VOLUME 102.9 fl (80.0-96.0); MONO # 0.7 10^3/uL (0.0-0.8); MONO % 7.2 % (0.0-5.0); NEUTROPHILS # 8.2 10^3/uL (1.5-8.5); NEUTROPHILS % 84.6 % (36.0-66.0); PLATELET COUNT, AUTOMATED 301 10^3/uL (150-450); RED BLOOD COUNT 3.07 10^6/uL (4.00-5.40); WHITE BLOOD COUNT 9.6 10^3/uL (4.0-10.0)
[2019-12-14 09:09] LABS: ALBUMIN 2.6 GM/DL (3.2-5.2); BILIRUBIN,TOTAL 0.4 MG/DL (0.2-1.0); CALCIUM LEVEL 9.1 MG/DL (8.8-10.2); CREATININE FOR GFR 1.15 MG/DL (0.55-1.30); GLOMERULAR FILTRATION RATE 47.7 (>32); POTASSIUM SERUM 4.2 MEQ/L (3.5-5.1); TOTAL PROTEIN 7.8 GM/DL (6.4-8.2)
[2019-12-14] MEDS: HEPARIN SOD (PORCINE) 5000UNITS/ML VIAL (J1644 PER 1000UNITS) SQ SCH ×2 (10:08→22:04)
[2019-12-14] MEDS: ACETAMINOPHEN 650 MG SUPP PR PRN ×3 (10:08→22:05)
[2019-12-14] MEDS: BISACODYL 10 MG SUPP PR SCH (10:09)
--- NOTE | 2019-12-14 17:07 | IPNPDOC ---
Date Seen The patient was seen on 12/14/19. Progress Note SUBJECTIVE: Febrile this AM, still minimally responsive. Labs unremarkable. Discussed case with Dr. Conley, neurology. Patient started on Acyclovir in addition to bacterial coverage. Repeat BCx NG x 24 hours. Spinal tap hopefully in the AM. OBJECTIVE: VITAL SIGNS: Please see below PHYSICAL EXAMINATION: General: not following commands, opens eyes at times, warm to touch HEENT: NC, AT CVS: +S1S2, Lungs: rhonchi today bilaterally, No wheezing, rales Abdomen: Nondistended, nontender and remained soft Extremities: Pulses present in bilateral lower ext, no lower ext edema Integumentary: Dusking of bilateral lower ext, prominent on bottom of feet, toes and knees. Neuro: Flacid upper and lower ext, not following commands. No overt focal deficits. LABORATORY: Please see below IMAGING: CT head 12/12: no acute intracranial abnormality CT abd/pelvis 12/12: No significant change from 07/03/2019. No evidence of acute disease. Findings as described above. CT chest 12/12: 1. No significant change in the appearance of the findings, as described above, when the technical differences between the examinations are taken into consideration. Persistent bibasilar opacities and lung nodules are suspected. MRI head 12/10: 1. Atrophy and chronic white matter changes. No acute intracranial abnormality. 2. Stable anterior falcine meningioma CT head 12/09/19: no acute intracranial abnormality ASSESSMENT: 84 y/o F with extensive PMH admitted for increased generalized weakness, memory loss, acute kidney injury, new encephalopathy PLAN: 1. Encephalopathy, r/o metabolic/infectious (? PNA, UTI, existing coccidiomycosis infection vs. possible CSF infection?) -No following commands, flaccid upper and lower ext -WBC 9.6, febrile this AM -Hx of chronic physical deconditioning possibly 2/2 to dementia and multiple back to back hospitalization stays, depression -BCx x 2 sets: NG at 24 hrs -F/u UCx, sputum cx if one can be produced. Decision by family was to keep patient here on current abx instead of transfer -C/w Zosyn, zoyvox. Added acyclovir today. -Spinal tap ordered for 12/15/19 2. Memory loss/ confusion possibly 2/2 ?dementia, acute issues above - No focal neurologic deficits - TSH/ RPR / Folate / B12 - normal or neg; Lyme neg - Medications were reviewed again with pharmacy, perhaps primidone with renal decline is issue? perhaps fluconazole contributing since she did not tolerate voriconazole in past (caused memory issues) - Holding all drugs above. Plan above for treatment of infectious source. 3. Coccidiomycosis infection, chronic -Following with Dr. Degroot, pulmonary as o/p -Previously on voriconazole-stopped due to memory issues -Started on fluconazole on 11/20/19, Stopped today -F/u sputum cx if one can be provided 4. Bibasilar opacities on CT chest, r/o PNA vs. chronic findings (possible fun gal?) -Currently saturating well on 2 L NC, baseline O2 amount -C/w abx above -F/u daily labs, sputum sample 5. UTI -UCx pending -C/w abx above 6. Dusking of feet, r/o possible PAD? Unlikely clots -Persists today, pulses DP, PT, popliteal pulses bilateral lower ext were present and strong. -Discussed with daughter about getting arterial US for lower legs. It was decided against this AM. -Allergic to IV contrast so cannot do CTA lower ext with contrast -Continue to monitor. 7. Essential tremor in hands, head tremor -Note from [facility] 10/15/19 stated that Botulinum toxin injections were being given for head tremor and that there had been some improvement. -Follows with [facility] -Holding PO mysoline . When/if we restart then please 200 mg PO TID or decreased to BID 8. Progressive sensory and motor polyneuropathy, chronic -Hx of EMG, Nerve conduction studies 2007- moderate to severe at that time. -On evaluation, decreased sensory on prior exam bilaterally -Patient and I discussed this previously, had to been stable. 9. Depression. -On last interview, she admitted to increased depression but also admitted to not taking medications when it is offered to her. -Stopping nortriptyline due to altered mental state 10. Chronic COPD/Asthma / Chronic hypoxic respiratory failure on 2 L NC Oxygen - Appears to be at baseline - c/w inhaled therapy as ordered 11. Diastolic CHF - No evidence of exacerbation, BNP low - CXR 11/30: Stable appearing chronic changes as described above. - Holding PO diuretic, BB 12. HTN - BP well controlled - Holding PO metoprolol 13. Chronic neck pain / cervical dystonia - XR cervical spine 12/01: This study is extremely limited. Odontoid is not visualized on the AP views. Patient refused to remove metallic earrings which overlie the C2 vertebral body on the lateral view. C6 and C7 are not well visu alized on the lateral view. No gross fracture or dislocation is seen of the visualized osseous structures. There is no prevertebral soft tissue swelling. There does appear to be moderate disc space narrowing with subchondral sclerosis and spurring at the C5-6 disc space. There is also diffuse sclerosis and spurring as well as narrowing of the posterior facet joints. - Follows with [facility], botulinum toxin injections - c/w Lidoderm patch as needed 14. CAD s/p PCI - Remains asymptomatic without chest pain, shortness breath or palpitations - Holding PO metoprolol, atorvastatin 15. DLP - HOlding PO atorvastatin 16. Hypothyroidism - Holding PO Levothyroxine 17. DVT prophylaxis - c/w Heparin DISPOSITION: Mental status remains very altered, no change in status. Hopeful for spinal tap tomorrow. Discussed case with Neurology (Dr. Conley) who is following. Will update family. VS, I&O, 24H, Fishbone Vital Signs/I&O Vital Signs Date Time Temp Pulse Resp B/P (MAP) Pulse Ox O2 Delivery O2 Flow Rate FiO2 12/14/19 12:14 2.0 12/14/19 12:00 97.9 98 18 160/75 (103) 9 Nasal Cannula I&O- Last 24 Hours up to 6 AM 12/14/19 06:00 Intake Total 2800 ml Output Total 800 ml Balance 2000 ml Laboratory Data 24H LABS Laboratory Tests 2 12/14/19 08:16: MH-[id number]-Type Natriuretic Peptide 201 12/14/19 08:19: Immature Granulocyte % (Auto) 0.7, Neutrophils (%) (Auto) 84.6H, Lymphocytes (%) (Auto) 6.8L, Monocytes (%) (Auto) 7.2H, Eosinophils (%) (Auto) 0.5, Basophils (%) (Auto) 0.2, Neutrophils # (Auto) 8.2, Lymphocytes # (Auto) 0.7L, Monocytes # (Auto) 0.7, Eosinophils # (Auto) 0.1, Basophils # (Auto) 0.0, Nucleated Red Blood Cells % (auto) 0.0, Anion Gap 9, Glomerular Filtration Rate 47.7, Calcium Level 9.1, Total Bilirubin 0.4#, Aspartate Amino Transf (AST/SGOT) 24, Alanine Aminotransferase (ALT/SGPT) 11L, Alkaline Phosphatase 110, Total Protein 7.8, Albumin 2.6L, Albumin/Globulin Ratio 0.5L CBC/BMP Laboratory Tests 12/14/19 08:19 Microbiology Microbiology 12/13/19 Urine Culture, Received Pending 12/13/19 Blood Culture - Preliminary, Resulted No growth after 24 hours . All specim... 12/13/19 Blood Culture - Preliminary, Resulted No growth after 24 hours . All specim... Current Medications Current Medications Medications (Trade) Dose Ordered Sig/Geni Route PRN Reason Start Time Stop Time Status Last Admin Dose Admin Acetaminophen (Tylenol Suppository) 650 mg Q6HP PRN NV PAIN / FEVER 12/14/19 09:45 12/14/19 10:59 Acetaminophen (Tylenol Tab) 1,000 mg Q8HP PRN PO PAIN / FEVER 12/01/19 19:45 12/14/19 09:55 DC 12/12/19 23:55 Acyclovir 800 mg/ Dextrose 266 ml @ 266 mls/hr Q8H IV 12/14/19 16:45 UNV Albuterol Sulfate (Proventil Neb) 2.5 mg Q2HP PRN NEB SOB/WHEEZING 12/01/19 19:45 Albuterol Sulfate (Proventil Neb) 2.5 mg RBID INH 12/02/19 20:00 12/14/19 07:55 Albuterol/ Ipratropium (Duoneb (Ipr 0.5mg/Alb 2.5mg)) 3 ml RQ6H NEB 12/01/19 20:00 12/02/19 12:29 DC 12/02/19 07:38 Ascorbic Acid (Vitamin C) 500 mg DAILY PO 12/02/19 09:00 12/14/19 09:55 DC 12/12/19 09:57 Atorvastatin Calcium (Lipitor) 40 mg QHS PO 12/01/19 21:00 12/14/19 09:55 DC 12/12/19 20:52 Bisacodyl (Dulcolax Suppository) 10 mg DAILY NV 12/14/19 09:00 12/14/19 10:09 Bisacodyl (Dulcolax Suppository) 10 mg DAILY PRN NV CONSTIPATION 12/01/19 19:45 12/09/19 10:25 DC Bisacodyl (Dulcolax Suppository) 10 mg DAILYPRN PRN NV CONSTIPATION 12/10/19 11:15 12/14/19 09:44 DC 12/10/19 21:13 Budesonide (Pulmicort) 0.5 mg RBID INH 12/01/19 20:00 12/14/19 07:55 Calcium Carbonate (Tums) 500 mg BID PO 12/01/19 21:00 12/14/19 09:55 DC 12/12/19 20:51 Capsaicin (Zostrix 0.025%) APPLY TO AFFECTED AREA... BID TOP 12/02/19 21:00 12/03/19 06:07 DC 12/02/19 22:24 Docusate Sodium (Colace) 100 mg BID PO 12/07/19 09:00 12/14/19 09:56 DC 12/12/19 20:52 Ferrous Sulfate (Ferrous Sulfate) 325 mg DAILY PO 12/02/19 09:00 12/14/19 09:55 DC 12/12/19 09:58 Fluconazole (Diflucan Tablet) 200 mg BID PO 12/01/19 21:00 12/13/19 12:40 DC 12/12/19 20:52 Heparin Sodium (Porcine) (Heparin) 5,000 units Q12H SQ 12/01/19 21:00 12/15/19 00:00 12/14/19 10:08 Home Med (Med Rec Complete!) ASDIRECTED XX 12/01/19 19:45 12/01/19 19:40 DC Lactulose (Cephulac) 15 ml DAILYPRN PRN PO CONSTIPATION 12/10/19 11:45 12/14/19 09:56 DC Latanoprost (Xalatan 0.005% Op Soln) 1 drop QHS OU 12/01/19 21:00 12/12/19 20:53 Levothyroxine Sodium (Synthroid) 100 mcg DAILY@0600 PO 12/02/19 06:00 12/14/19 09:55 DC 12/13/19 06:05 Lidocaine (Lidoderm Patch) 1 patch DAILY@0600 TD 12/02/19 06:00 12/03/19 06:07 DC 12/02/19 05:15 Linezolid 600 mg/ IV Miscellaneous Supplies 300 ml @ 150 mls/hr Q12H IV 12/13/19 14:00 12/14/19 15:16 Magnesium Hydroxide (Milk Of Magnesia) 15 ml DAILYPRN PRN PO CONSTIPATION 12/09/19 10:30 12/14/19 09:56 DC 12/12/19 09:59 Magnesium Hydroxide (Milk Of Magnesia) 15 ml QHS PRN PO CONSTIPATION 12/01/19 19:45 12/09/19 10:25 DC Metoprolol Succinate (TopROL XL) 25 mg DAILY PO 12/02/19 09:00 12/14/19 09:55 DC 12/12/19 09:58 Miscellaneous (Unresolved Clarification Entry) SEE LABEL COMMENTS DAILY XX 12/14/19 09:00 12/14/19 08:44 DC Non-Formulary Medication ( See Comment Field Below ) REMOVE LIDODERM PATCH f... DAILY@1800 XX 12/02/19 18:00 12/03/19 06:11 DC 12/02/19 18:34 Nortriptyline HCl (Pamelor) 10 mg BID PO 12/01/19 21:00 12/13/19 01:22 DC 12/12/19 20:52 Nortriptyline HCl (Pamelor) 10 mg DAILY PO 12/13/19 09:00 12/13/19 12:38 DC Nystatin (Mycostatin Powder, Nystop) APPLY TO ABDOMINAL FOLDS DAILYPRN PRN TOP RASH 12/01/19 19:45 Piperacillin Sod/ Tazobactam Sod 3.375 gm/Dextrose 50 ml @ 50 mls/hr Q8H IV 12/13/19 13:00 12/14/19 14:14 Polyethylene Glycol (Miralax) 1 pkt DAILY PO 12/08/19 09:00 12/10/19 11:34 DC Primidone (Mysoline) 250 mg TID@0800,1200,2100 PO 12/01/19 21:00 12/13/19 12:38 DC 12/12/19 20:52 Salmeterol Xinafoate/ Fluticasone (Advair Hfa 230/ 21) 2 puff RBID INH 12/02/19 08:00 12/12/19 19:30 Senna/Docusate Sodium (Senokot S) 2 tab BID PRN PO CONSTIPATION 12/01/19 19:45 12/09/19 10:25 DC Senna/Docusate Sodium (Senokot S) 2 tab QHS PO 12/09/19 21:00 12/14/19 09:56 DC 12/12/19 20:50 Sodium Chloride 1,000 ml @ 100 mls/hr Q10H IV 12/13/19 12:00 12/13/19 22:00 Sodium Chloride 1,000 ml @ 100 mls/hr Q10H IV 12/01/19 19:30 12/03/19 08:39 DC 12/03/19 03:39 Tiotropium [place] (Spiriva Handihaler) 1 inhalation DAILY@08 INH 12/02/19 08:00 12/12/19 08:00 Torsemide (Demadex) 20 mg DAILY PO 12/11/19 09:00 12/13/19 18:04 DC 12/12/19 09:58 Torsemide (Demadex) 40 mg DAILY PO 12/04/19 09:00 12/11/19 09:05 DC 12/10/19 09:35 Vitamin D (Vitamin D) 2,000 units DAILY PO 12/02/19 09:00 12/14/19 09:55 DC 12/12/19 09:57 Allergies Coded Allergies: ibuprofen (Verified Allergy, Severe, respiratory distress, 08/03/19) Cephalosporins (Verified Allergy, Intermediate, SEVERE HIVES, 08/03/19) iodine (Verified Allergy, Intermediate, SEVERE HIVES, 08/03/19) tetracycline (Verified Allergy, Intermediate, hives, 08/03/19) cephalexin (Verified Allergy, Mild, RASH (FROM kEFLEX), 08/03/19) vancomycin (Verified Allergy, Mild, facial and arm rash and itching, 08/04/19) ciprofloxacin (Verified Allergy, Unknown, 08/03/19) NSAIDS (Non-Steroidal Anti-Inflamma (Verified Adverse Reaction, Severe, unable to take d/t asthma, 12/01/19) morphine (Verified Adverse Reaction, Intermediate, HALLUCINATIONS, 08/03/19) Genie Garrett MD Dec 14, 2019 17:07
[2019-12-14] MEDS ORDERED: ACYCLOVIR 800 MG in D5W 250 ML IV SCH (18:00)
[2019-12-15] VITALS (8 sets, daily range): BP systolic 144–160; BP diastolic 72–76; O2SAT 95–96
[2019-12-15] MEDS: LATANOPROST 0.005% OPHTH SOLN 2.5 ML OU SCH (01:07)
[2019-12-15] MEDS: LINEZOLID 600 MG in IV 1 EA IV SCH (02:43)
[2019-12-15] MEDS: PIPERACILLIN/TAZOBACTAM SOD 3.375 GM in D5W MINI-BAG PLUS 50 ML IV SCH ×2 (05:09→13:00)
[2019-12-15] MEDS: NS 1,000 ML IV SCH ×2 (05:09→14:00)
[2019-12-15 06:37] LABS: BASO % 0.2 % (0.0-1.0); EOS # 0.1 10^3/uL (0.0-0.5); EOS % 0.7 % (0.0-3.0); HEMATOCRIT 29.8 % (36.0-47.0); HEMOGLOBIN 9.3 g/dl (12.0-15.5); LYMPH # 0.8 10^3/uL (1.5-5.0); LYMPH % 6.9 % (24.0-44.0); MEAN CORPUSCULAR HEMOGLOBIN 33.1 pg (27.0-33.0); MEAN CORPUSCULAR HGB CONC 31.2 g/dl (32.0-36.5); MONO # 0.8 10^3/uL (0.0-0.8); MONO % 6.1 % (0.0-5.0); NEUTROPHILS # 10.5 10^3/uL (1.5-8.5); NEUTROPHILS % 85.5 % (36.0-66.0); PLATELET COUNT, AUTOMATED 297 10^3/uL (150-450); RED BLOOD COUNT 2.81 10^6/uL (4.00-5.40); WHITE BLOOD COUNT 12.3 10^3/uL (4.0-10.0)
[2019-12-15 06:56] LABS: ALBUMIN 2.2 GM/DL (3.2-5.2); BILIRUBIN,TOTAL 0.4 MG/DL (0.2-1.0); CREATININE FOR GFR 1.09 MG/DL (0.55-1.30); GLOMERULAR FILTRATION RATE 50.8 (>32); POTASSIUM SERUM 3.7 MEQ/L (3.5-5.1); TOTAL PROTEIN 7.6 GM/DL (6.4-8.2)
[2019-12-15] MEDS: BUDESONIDE 0.5 MG/2 ML INHALATION SUSPENSION INH SCH (07:26)
[2019-12-15] MEDS: TIOTROPIUM INHALER/CAPSULE (SPIRIVA) INH SCH (07:27)
[2019-12-15] MEDS: ADVAIR HFA 230/21MCG INHALER INH SCH (07:27)
[2019-12-15] MEDS: ALBUTEROL SULFATE 2.5 MG/0.5 ML INH NEB SOLN INH SCH (07:27)
[2019-12-15] MEDS: BISACODYL 10 MG SUPP PR SCH (09:50)
[2019-12-15 10:22] LABS: INR 1.42; PROTHROMBIN TIME 17.1 SECONDS (11.8-14.0)
[2019-12-15 10:23] LABS: PARTIAL THROMBOPLASTIN TIME 46.3 SECONDS (25.0-38.4)
[2019-12-15] MEDS ORDERED: MORP20SO3 PO ×2 (16:21→16:39)
[2019-12-15] MEDS ORDERED: HYOS125TA PO (16:21)
[2019-12-15] MEDS ORDERED: ATIV1TAB10 PO (16:21)
--- NOTE | 2019-12-15 20:26 | DS.PDOC ---
Discharge Summary General Date of Admission Dec 01, 2019 at 19:36 Date of Discharge 12/15/19 Attending Physician: Genie Garrett MD Discharge Summary HISTORY OF PRESENT ILLNESS: Patient is an 84 y/o F with extensive PMH of asthma, COPD O2 dependent on 2 L NC, diastolic CHF, HTN, hypothyroidism, hx of DVT who presented to [facility] ER with the chief complaint of increased weakness. Patient states that she has had increased weakness, worse than her baseline. Patient has been getting treated by Dr. Degroot for fungal pneumonia and recently treated with fluconazole. Her daughter called Dr. Degroot today to follow up over the phone and she mentioned her mother was weaker than normal. Dr. Degroot suggested for her to come to the ER for further evaluation. She has had no recent falls. Patient states she has baseline shortness of breath but she admits to coughing more than usual. Denies n/v/d, chest pain, abdominal pain, cramping in legs, dysuria, decreased appetite or PO intake. Patient admits to not eating well at baseline, gets Meals on Wheels. She has numbness in the lower ext in b/l lower ext- this is chronic from a back injury In the ER patient was noticeably weak. VS stable on 2 L NC. Na low at 133, Cr elevated at 1.83 (baseline Cr 1.18). CXR showed chronic changes only. On patient's meds, she was noted to be on three diuretics. Poor skin turgor. Patient was complaining of neck pain, chronic. She was admitted under inpatient status for generalized weakness, acute kidney injury. HOSPITAL COURSE: The patient was continued on all home medications on admission, outside of nephrotoxic meds. Patient continued to be treated for TAI, PT worked with patient. They were concerned for a steady decline in function by patient over the several weeks she was here. The family, who are very well versed in the patient's history, felt that patient had increased memory loss, slurred speech at times when talking to her on the phone. CT head neg for acute intracranial ab normalities. On 12/11/19, neurology assessed the patient at the bedside. The patient did not complain of any ascending numbness to suspect Guillain-Torres syndrome she denied ascending weakness but admitted to baseline weakness of the lower extremities long-standing since a back injury. There was no evidence of stroke but evidence of a possible right L5 nerve root compression which could've explained weakness in her lower extremities. Upper extremity strength was well preserved. It was not suspected that she had an underlying acute myopathy as reflexes were not brisk. On 12/12/19, the day after her neurology evaluation by neurologist, the patient was noticed to be increasingly lethargic in the AM, minimally responsive. On exam she was diaphoretic and would not follow commands, much changed from her evaluation on 12/11/2019 and even much changed according to the nurse who took her over at [address] of the head was negative for acute intracranial abnormality, CT abdomen and pelvis negative for acute findings, CT chest negative for acute findings but commented on bibasilar opacities (possible PNA)- scans were unable to be performed with IV contrast due to allergy. CT of the chest was reviewed with pulmonary, ICU and her case was also discussed in detail with neurology. Pulmonary did not feel that the CT chest was much changed from her prior ones. We discussed her history of coccidomycosis and her prior treatment course, including needing to be stopped on voriconizole in the past for increased mental status changes on that medication. The patient had remained on fluconazole (the alternative to voriconazole) during her hospital stay so perhaps she did not tolerate this well? ABG showed metabolic alkalosis with respiratory acidosis, repeat ABG showed much improvement after IV fluids. She was made NPO, started on IVFs, empiric antibiotics including Zyvox and Zosyn due to multiple antibiotic allergies. Blood cultures were repeated, UA was mildly positive-cx later came back positive for E. cloacae, WBC mildly elevated at 10.1, Covid negative, lactic acid within normal limits, vital signs stable. Due to rapid decline cognitively and with increased generalized weakness with an essentially negative workup, specialty services and myself agreed that if the family should choose to be more aggressive then a spinal tap would be required. I spoke with the patient's healthcare proxy and daughter (Ani Antunez) and other daughter Hellen, son Isrrael for family meeting. They were all updated and MOLST form was reviewed in full. Decision was made to do spinal tap on 12/15/19, c/w abx and see what results may arise. She was changed from a full code to DNR/DNI. Discussion about IV steroids was had with neurology; however, due to her symptoms, this was not pursued. She was kept NPO. The patient began spiking fevers over the weekend of 12/12-12/13 and remained lethargic and minimally responsive, despite being on Zosyn, Zyvox, Acyclovir. Decision was made to start Acyclovir, to cover any viral etiology of now developing sepsis. BCx later came back NG at 24 hours. Family was updated daily. On the AM of 12/15/19, patient's RR increased, she remained intermittently febrile despite antivirals. Case had been discussed with ID in detail. Lumbar puncture was scheduled to occur. On examination of patient in the room, she asked me "Am I dying?" and also asked the nurse the same question. The family was updated and wanted to come in to see their mother. Upon further discussion over the day, the decision was made to make the patient [employer] to be discharged home with [facility]osp[facility]. 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 Quit > 20 years ago. Full Code. Updated MOLST form. FAMILY HISTORY: Father:CAD. Mother: CAD. ALLERGIES: Please see below DISCHARGE MEDICATIONS: Please see below PHYSICAL EXAMINATION: VS: Please see below General: not following commands, opens eyes at times, warm to touch HEENT: NC, AT CVS: +S1S2, Lungs: rhonchi today bilaterally, No wheezing, rales Abdomen: Nondistended, nontender and remained soft Extremities: Pulses present in bilateral lower ext, no lower ext edema Integumentary: Dusking of bilateral lower ext, prominent on bottom of feet, toes and knees. Neuro: Flacid upper and lower ext, not following commands. No overt focal deficits. LABORATORY: Please see below IMAGING: CT head 12/12: no acute intracranial abnormality CT abd/pelvis 12/12: No significant change from 07/03/2019. No evidence of acute disease. Findings as described above. CT chest 12/12: 1. No significant change in the appearance of the findings, as described above, when the technical differences between the examinations are taken into consideration. Persistent bibasilar opacities and lung nodules are suspected. MRI head 12/10: 1. Atrophy and chronic white matter changes. No acute intracranial abnormality. 2. Stable anterior falcine meningioma CT head 12/09/19: no acute intracranial abnormality DIAGNOSES at DISCHARGE: 1. Encephalopathy, sepsis likely metabolic/infectious (bacterial vs. viral: ? PNA, UTI, existing coccidiomycosis infection vs. possible CSF infection?) vs. natural decline 2. Memory loss/ confusion possibly 2/2 ?dementia, acute issues 3. Coccidiomycosis infection, chronic 4. Bibasilar opacities on CT chest, r/o PNA vs. chronic findings (possible fungal?)le 5. UTI, E. Cloacae 6. Dusking of feet, r/o possible PAD 7. Essential tremor in hands, head tremor 8. Progressive sensory and motor polyneuropathy, chronic 9. Depression 10. Chronic COPD/Asthma / Chronic hypoxic respiratory failure on 2 L NC Oxygen 11. Diastolic CHF 12. HTN 13. Chronic neck pain / cervical dystonia 14. CAD s/p PCI 15. DLP 16. Hypothyroidism DISPOSITION: Discharged home under [employer]EL[employer] status, home with Hospice. TIME SPENT ON DISCHARGE: Greater than minutes. Vital Signs/I&Os Vital Signs Date Time Temp Pulse Resp B/P (MAP) Pulse Ox O2 Delivery O2 Flow Rate FiO2 12/15/19 12:00 2.0 12/15/19 12:00 97.7 94 19 94 Room Air 12/15/19 08:00 160/76 (104) I&O- Last 24 Hours up to 6 AM 12/15/19 06:00 Intake Total 1150 ml Output Total 1175 ml Balance -25 ml Laboratory Data Labs 24H Laboratory Tests 2 12/15/19 06:00: Immature Granulocyte % (Auto) 0.6, Neutrophils (%) (Auto) 85.5H, Lymphocytes (%) (Auto) 6.9L, Monocytes (%) (Auto) 6.1H, Eosinophils (%) (Auto) 0.7, Basophils (%) (Auto) 0.2, Neutrophils # (Auto) 10.5H, Lymphocytes # (Auto) 0.8L, Monocytes # (Auto) 0.8, Eosinophils # (Auto) 0.1, Basophils # (Auto) 0.0, Nucleated Red Blood Cells % (auto) 0.0, Anion Gap 8, Glomerular Filtration Rate 50.8, Calcium Level 9.0, Total Bilirubin 0.4, Aspartate Amino Transf (AST/SGOT) 42H, Alanine Aminotransferase (ALT/SGPT) 17, Alkaline Phosphatase 148H, Total Protein 7.6, Albumin 2.2L, Albumin/Globulin Ratio 0.4L 12/15/19 08:39: Erythrocyte Sedimentation Rate 128H, C-Reactive Protein, Quantitative 40.80H, Procalcitonin 0.28 12/15/19 09:49: Prothrombin Time 17.1H, Prothromb Time International Ratio 1.42, Activated Partial Thromboplast Time 46.3H CBC/BMP Laboratory Tests 12/15/19 06:00 Microbiology Microbiology 12/13/19 Urine Culture - Final, Complete Enterobacter Cloacae Complex 12/13/19 Blood Culture - Preliminary, Resulted No Growth after 48 hours. All Specime... 12/13/19 Blood Culture - Preliminary, Resulted No Growth after 48 hours. All Specime... Discharge Medications Scheduled PRN Hyoscyamine Sulfate (Hyoscyamine Sulfate) 0.125 Mg Tab.subl, 0.125 MG PO Q4HP PRN for TERMINAL SECRETIONS Use sublingually if unable to swallow Lorazepam (Ativan) 0.5 Mg Tablet, 0.5 MG PO Q4HP PRN for ANXIETY/AGITATION Use sublingually if unable to swallow Morphine Sulfate (Morphine Sulfate) 100 Mg/5 Ml Solution, 0.25-1 ML PO Q2H PRN for PAIN OR DYSPNEA Use sublingually if unable to swallow Allergies Coded Allergies: ibuprofen (Verified Allergy, Severe, respiratory distress, 08/03/19) Cephalosporins (Verified Allergy, Intermediate, SEVERE HIVES, 08/03/19) iodine (Verified Allergy, Intermediate, SEVERE HIVES, 08/03/19) tetracycline (Verified Allergy, Intermediate, hives, 08/03/19) cephalexin (Verified Allergy, Mild, RASH (FROM kEFLEX), 08/03/19) vancomycin (Verified Allergy, Mild, facial and arm rash and itching, 08/04/19) ciprofloxacin (Verified Allergy, Unknown, 08/03/19) NSAIDS (Non-Steroidal Anti-Inflamma (Verified Adverse Reaction, Severe, unable to take d/t asthma, 12/01/19) morphine (Verified Adverse Reaction, Intermediate, HALLUCINATIONS, 08/03/19) Genie Garrett MD Dec 15, 2019 20:26
== END 2019-12-15 17:01 | disposition hospice, home (50) | DRG 640 ==
LOC: M ED 14:08 → EDBD 14:08 → M ED INP 19:36 → ENRESERV 19:49 → M MSPAV 20:31 → M PCU 12-13 12:19
PROVIDERS: ADMIT Internal Medicine; ATTEND Internal Medicine
DX: E86.0 Dehydration (principal); J16.8 Pneumonia due to other specified infectious organisms; A41.9 Sepsis, unspecified organism; G93.41 Metabolic encephalopathy; N17.9 Acute kidney failure, unspecified; I50.32 Chronic diastolic (congestive) heart failure; J44.0 Chronic obstructive pulmonary disease with (acute) lower respiratory infection; J96.11 Chronic respiratory failure with hypoxia; N39.0 Urinary tract infection, site not specified; J44.9 Chronic obstructive pulmonary disease, unspecified; F03.90 Unspecified dementia, unspecified severity, without behavioral disturbance, psychotic disturbance, mood disturbance, and anxiety; J45.909 Unspecified asthma, uncomplicated; I11.0 Hypertensive heart disease with heart failure; E03.9 Hypothyroidism, unspecified; Z86.718 Personal history of other venous thrombosis and embolism; Z99.81 Dependence on supplemental oxygen; Z66 Do not resuscitate; Z51.5 Encounter for palliative care; I25.10 Atherosclerotic heart disease of native coronary artery without angina pectoris; G47.33 Obstructive sleep apnea (adult) (pediatric); E66.9 Obesity, unspecified; M06.9 Rheumatoid arthritis, unspecified; Z87.891 Personal history of nicotine dependence; G25.0 Essential tremor; G24.3 Spasmodic torticollis; E78.5 Hyperlipidemia, unspecified; Z88.8 Allergy status to other drugs, medicaments and biological substances